=== PATIENT | male | born 1960 | race Caucasian/White ===

== ENCOUNTER 2018-03-19 12:04 | Inpatient (IN) | payer MEDICAID, SELFPAY ==
[2018-03-19] VITALS (14 sets, daily range): BP systolic 121–182; BP diastolic 75–117; PULSE 77–113; RESP 16–24; TEMP 36.6–36.7; O2SAT 94–98; BMI 33.7
--- NOTE | 2018-03-19 12:18 | EKG12_ITS ---
Test Reason : CP Blood Pressure : / mmHG Vent. Rate : 104 BPM Atrial Rate : 104 BPM P-R Int : 174 ms QRS Dur : 104 ms QT Int : 356 ms P-R-T Axes : 064 078 066 degrees QTc Int : 468 ms Sinus tachycardia Low voltage QRS (olimb leads) Confirmed by FLOR ISRAEL, DINORA ([id number]), script editor SUNITA DALY ([id number]) on 03/22/2018 11:09:42 AM Referred By: DANIELE Confirmed By:DINORA RAY MD
--- NOTE | 2018-03-19 12:18 | RAD_ITS ---
STUDY: X-RAY CHEST REASON FOR EXAM: Male, 57 years old. Midanterior chest pain. TECHNIQUE: Single AP portable view of the chest. # of Images: 1 COMPARISON: AP upright and lateral views of the chest August 13, 2009. Report for that study not available for review at the time of this dictation. FINDINGS: The lungs are clear and expanded. There is no demonstrated pleural abnormality. Normal size heart. Normal mediastinum and amanda. Normal visualized pulmonary arteries. Normal visualized aortic arch and descending thoracic aorta. There are stable multilevel degenerative changes of the visualized thoracic spine. 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 There is no demonstrated abnormality of the visualized soft tissue structures of the upper abdomen. RAD/Chest 1 View (Portable) IMPRESSION: No acute cardiopulmonary disease. Electronically Signed: Martin Wang MD at 13:05 EDT , Service support ,
[2018-03-19] MEDS: Aspirin 81 MG TAB.CHEW 324 MG PO (12:33)
[2018-03-19 12:51] LABS: Absolute Lymphocyte Count 0.83 X10^3/ul (0.83-4.51); Absolute Neutrophil Count 2.9 X10^3/uL (2.0-7.7); Basophil# 0.01 X10^3/uL; Basophil% 0.2 % (0-1); Eosinophil# 0.07 X10^3/uL; Eosinophils% 1.6 % (0-5); Hematocrit 44.8 % (40-54); Hemoglobin 15.4 g/dl (13.0-16.5); Lymphocyte # 0.83 X10^3/ul (4.0); Lymphocyte % 19.4 % (19-41); Mean Corp Hgb Conc 34.4 g/gl (32-36); Mean Corpuscular Hgb 31.6 pg (27.0-32.0); Mean Platelet Vol. 10.1 fl (6.2-12.0); Monocyte# 0.47 X10^3/uL; Neutrophil # 2.88 X10^3/uL (2.7-7.7); Neutrophil % 67.6 % (47-70); Platelet Count 200 K/mm3 (150-450); RBC Distribution Width CV 12.7 % (11.6-14.6); RBC Distribution Width SD 42.5 fl (35.1-43.9); Red Blood Count 4.87 M/mm3 (4.6-6.2); White Blood Count 4.3 K/mm3 (4.4-11.0)
[2018-03-19 12:52] LABS: POSITIVE COUNT NO; POSITIVE DIFFERENTIAL NO; POSITIVE MORPHOLOGY NO
--- NOTE | 2018-03-19 12:57 | ED.DCSUM_ITS ---
- ER Visit Summary Date of Service: 03/19/18 Chief Complaint: Midsternal chest dull pressure sensation with radiation to both shoulders and neck for the past couple of days. History of Present Illness: The patient is a 57 M who has history of type 2 diabetes. He denies history of hypertension, hypercholesterolemia or coronary disease. He is a non-smoker. He states he has never had a stress test. Patient presents because of mid sternal chest type dull sensation with radiation to both shoulders and anterior neck with no associated symptoms. Initially pain resolved with rest now states there is a constant dull discomfort. The pain is worse with activity and especially exertion. With resolution of activity discomfort now diminishes significantly and is dependent on the amount of activity that precipitated his chest pressure dull sensation. He denies fever, chills night sweats. He denies cough, orthopnea or PND. He denies any GI or symptoms. He denies myalgias, arthralgias or back pain. He denies any neurologic symptoms. He denies dysuria, polyuria or polydipsia. Physical Examination: Vital signs were noted and blood pressure elevated 182/117 heart rate 107. Head is atraumatic normocephalic. Pupils are equal round reactive. Extraocular muscles are intact. TMs are pearly white with landmarks noted. Nares patent with no drainage. Posterior pharynx without erythema or exudate. Uvula is midline. There is no dysphonia or dysphasia. Trachea is midline. There is no stridor with auscultation of the neck. Heart is regular without murmur, gallop or rub. S1 and S2 are normal. Lungs are clear to auscultation with good movement of air bilaterally. Abdomen soft nontender bowel sounds present normal. Lower extremity exam is remarkable for mild pitting edema bilaterally, which patient was unaware of. Neuro exam is nonfocal. Test Results: EKG was obtained and reveals a sinus rhythm rate of 104. [place] interval, QRS duration, QT interval and axis are normal. Single view portable x-ray reveals normal cardiac silhouette, mediastinum and lung parenchyma. There is no evidence of congestive heart failure or effusion. White count is 4.3 thousand. Glucose is 261. Troponin is indeterminate at 0.29. Emergency Department Course and Treatment: Chest pain order set was initiated to difference between cardiac versus GI versus pulmonary etiology. He did receive aspirin and nitroglycerin. Since patient never had a stress test and presents with exertional chest pressure he was informed he would need admission/overnight stay for further testing. Patient reports his chest discomfort was alleviated with nitroglycerin. Treatment Plan: Dr. Rodriguez has been paged since patient has exertional angina with elevated markers and need for cardiac catheterization versus stress test. We will also discuss anticoagulation. Disposition: PCU Impression: 1. Exertional chest pain 2. Elevated troponin 3. Hyperglycemia and type II diabetic 4. History of hypertension This note was generated with [employer] dictation software. It may contain incorrect words, spelling, and punctuation that were not noted in review of the chart prior to signing ED Disposition - Plan for ED Patient: Chief Complaint: Chest Pain Referrals: Care Physician,No Primary [Primary Care Provider] -
[2018-03-19 13:06] LABS: Anion Gap 10 (5-15); BUN 12 mg/dL (7-18); BUN/Creat Ratio 9.5 RATIO (10-20); Calcium,Total 9.1 mg/dL (8.5-10.1); Chloride 101 mmol/L (98-107); Creatinine, Serum 1.26 mg/dL (0.70-1.30); EST Glomerular Filtration Rate 63 mL/min (>60); Est Glom Filt Rate - Afr Amer 76 mL/min (>60); Estimated Creatinine Clearance 66.79 ml/min; Glucose 261 mg/dL (74-106); Sodium Level 136 mmol/L (136-145)
[2018-03-19] MEDS: Enoxaparin 100 MG/ML Syringe SC ×2 (14:26→22:28)
[2018-03-19 17:00] LABS: Bedside Glucose 96 mg/dL (70-110)
--- NOTE | 2018-03-19 17:20 | ECHOCS_ITS ---
Version 2 Reason For Study: Chest Pain Procedure This was a 2D Doppler, Color Flow transthoracic echocardiogram. The study was technically difficult. Contrast injection was performed. Exam performed portable in patient room. Left Ventricle Normal LV size. Segmental dysfunction with preserved ejection fraction (see wall motion). The estimated ejection fraction is 55 %. Transmitral doppler flow suggestive of impaired relaxation of left ventricle. Infero-Basal: Hypokinetic. Mid-Lateral : Hypokinetic. Mid-Posterior: Hypokinetic. Mid-Inferior: Hypokinetic. Anterior [place] : Hypokinetic. Inferior [place] : Hypokinetic. Right Ventricle Normal RV size. Normal systolic function. Atria Normal left atrium. Normal right atrium. No doppler evidence for ASD. Mitral Valve There is no mitral annular calcification. Normal mitral valve. Mild (1+) mitral valve insufficiency. Tricuspid Valve Normal tricuspid valve. Trivial tricuspid valve insufficiency. Right ventricular systolic pressure estimated to be 25 mmHg. Aortic Valve Trisinus/trileaflet aortic valve. Mild focal aortic valve calcification. Pulmonic Valve The pulmonic valve is not well visualized. Great Vessels Normal sized aortic root. Pericardium/Pleural No pericardial effusion. Medication Definity0.3ml given slow IV push to enhance endocardial definition. MMode/2D Measurements & Calculations LVIDd: 4.9 cm IVSd: 1.4 cm Ao root diam: 3.4 cm LVIDs: 3.8 cm LVPWd: 1.1 cm RVDd: 3.2 cm FS: 22.5 % LAV(MOD-bp): 54.7 ml LVAd ap4: 37.0 cm2 SV(MOD-sp4): 54.4 ml LAV(MOD-bp) Indexed: 24.4 ml/m2 EDV(MOD-sp4): 138.8 ml LAV(MOD-sp2): 61.8 ml EDV(sp4-el): 149.2 ml LAV(MOD-sp4): 42.2 ml LVAs ap4: 26.4 cm2 ESV(MOD-sp4): 84.4 ml ESV(sp4-el): 86.9 ml EF(MOD-sp4): 39.2 % EF(sp4-el): 41.8 % SV(sp4-el): 62.3 ml LA A4 area: 14.6 cm2 RA A4 area: 11.2 cm2 Doppler Measurements & Calculations MV E max josue: 66.9 cm/sec Lat Peak E' Josue: 7.5 cm/sec Med Peak E' Ojsue: 6.0 cm/sec MV A max josue: 88.0 cm/sec E/E' lat: 8.9 E/E' med: 11.1 MV E/A: 0.76 Ao V2 max: 88.9 cm/sec LV V1 max: 79.6 cm/sec PA V2 max: 67.3 cm/sec Ao max P.2 mmHg LV V1 max P.5 mmHg Ao V2 mean: 66.0 cm/sec Ao mean P.9 mmHg Ao V2 VTI: 19.4 cm TR max josue: 233.7 cm/sec TR max P.9 mmHg Interpretation Summary The study was technically difficult. Contrast injection was performed. Segmental dysfunction with preserved ejection fraction (see wall motion). The estimated ejection fraction is 55 %. Mild (1+) mitral valve insufficiency. Trivial tricuspid valve insufficiency. Mild focal aortic valve calcification. Right ventricular systolic pressure estimated to be 25 mmHg. Transmitral doppler flow suggestive of impaired relaxation of left ventricle Ordering Physician: Vlad Rodriguez Performed By: Akiko Ruiz, PHUONG, RVT
--- NOTE | 2018-03-19 17:29 | CON.PCM_ITS ---
Problem List (1) NSTEMI (non-ST elevated myocardial infarction) Status: Acute (2) HTN (hypertension) Status: Chronic Qualifiers: Hypertension type: essential hypertension Qualified Code(s): I10 - Essential (primary) hypertension (3) Diabetes mellitus Status: Chronic Reason for Consult Date of Consultation: 03/19/18 History of Present Illness: The patient is a 57 year old white male with a past medical history of possible hypertension, diabetes mellitus, who presents for evaluation of chest discomfort and subsequent objective findings with cardiac enzymes concerning for an acute coronary syndrome/non-ST segment elevation TN. The patient states for some time now he has been noticing dull chest discomfort which is waxed and waned. He notes this morning upon awakening he had similar type symptoms. He noted this event was more dramatic than the others. He stated he felt pressure in his chest. It radiated somewhat to his shoulders. He does not recall radiation to the neck or jaw. He does not recall any acute nausea, emesis, diaphoresis, or respiratory related issues. He subsequent he presented to the emergency department for further evaluation care. There he was found to have an indeterminant troponin I level. His ECG demonstrated sinus tachycardia with no acute ECG changes. He was treated medically which included aspirin and nitrate therapy. Had improvement in symptoms. He was placed in the PCU for further evaluation care. His subsequent troponin I level became positive. He denies any orthopnea or PND or worsening peripheral pitting edema. He denies any history of hemorrhagic or thrombotic related events. He does not recall undergoing cardiovascular evaluation in the past. He states he feels better at this time. [] Past Medical History Allergies/Adverse Reactions: Allergies shrimp Allergy (Verified 03/19/18 12:07) Rash Home Medications: Ambulatory Orders Medication Instructions Recorded Empagliflozin [Jardiance] 25 mg PO DAILY 03/19/18 Glimepiride [Amaryl] 4 mg PO BID 03/19/18 Metformin HCl 1,000 mg PO BID 03/19/18 Past Medical History (Chronic Problems): Chronic Problems HTN (hypertension) (Chronic) Diabetes mellitus (Chronic) Lives: Spouse/ Significant Other Smoking Status: Never smoker Alcohol: None Drugs: None Review of Systems - Review of Systems General: Denies: Fever, Night Sweats, Fatigue Cardiovascular: Reports: Chest Discomfort, Chest Discomfort at Rest, Chest Discomfort with Exertion. Denies: Shortness of Breath, Orthopnea, PND, Peripheral Edema, Palpitations, Lightheadedness, Dizziness, Near Syncope, Syncope Respiratory: Denies: Cough, Sputum Production, Hemoptysis Gastrointestinal: Denies: Hematemesis, Hematochezia, Melena Genitourinary: Denies: Dysuria, Hematuria Skin: Denies: Rash Subjectve: This is a 57-year-old white male who appears to be resting comfortably at the moment in no acute distress. Objective: Vital Signs Temp Pulse Resp BP Pulse Ox 98.1 F 85 18 123/76 H 96 03/19/18 16:04 03/19/18 16:04 03/19/18 16:04 03/19/18 16:04 03/19/18 16:04 Oxygen Delivery Method Room Air Weight: 235 lb 7.259 oz Body Mass Index (BMI) 33.7 General: Awake, Alert, Oriented x 3, Cooperative, No Acute Distress HEENT: Atraumatic, Normocephalic, PERRL, EOMI, Sclera Non Icteric Oral: Moist Mucosa Neck: Supple, Good ROM, No JVD Lungs: Clear to auscultation Cardiovascular: Regular Rhythm, Normal S1, Normal S2 Vascular: No Carotid Bruits Abdomen: Bowel Sounds Present, Soft, Non Tender Extremities: No Cyanosis, No Clubbing, No edema Neurological: No Focal Motor or Sensory Deficit Psych/Mental Status: Appropriate, Normal Affect 03/19/18 12:12: WBC 4.3 L, RBC 4.87, Hgb 15.4, Hct 44.8, MCV 92.0, MCH 31.6, MCHC 34.4, RDW 12.7, RDW Differential 42.5, Plt Count 200, MPV 10.1, Immature Gran % (Auto) 0.200, Neut % (Auto) 67.6, Lymph % (Auto) 19.4, [place] % (Auto) 11.0 H, Eos % (Auto) 1.6, Baso % (Auto) 0.2, Absolute Neuts (auto) 2.9, Total Counted Not Reportable 03/19/18 12:12: Sodium 136, Potassium 4.0, Chloride 101, Carbon Dioxide 25.0, Anion Gap 10, BUN 12, Creatinine 1.26, Est GFR (MDRD) Af Amer 76, Est GFR (MDRD) Non-Af 63, BUN/Creatinine Ratio 9.5 L, Glucose 261 H, Calcium 9.1, Troponin I 0.290 H 03/19/18 15:54: Troponin I 0.841 H* Rhythm: Sinus rhythm EKG: As noted above CXR: Preliminary evaluation: No acute cardiopulmonary disease process appreciated: Please see official report Assessment/Plan 1. Acute coronary syndrome/non-ST segment elevation TN The patient presents with symptoms and subsequent objective findings based on cardiac enzymes compatible with an acute coronary syndrome/non-ST segment elevation TN. The patient appears to be symptomatically improved status post initiation of medical therapy with aspirin and nitrates. He will continue to be monitored. His ECG will be followed. An echocardiogram will be requested to evaluate his left ventricular wall motion and systolic function. He will be recommended for further evaluation with diagnostic cardiac catheterization which may lead to revascularization therapy. In the interim he will continue medical management. This will include his antiplatelet therapy aspirin and agent such as clopidogrel/Plavix, nitrates, bet a-blockers, and lipid-lowering agents. 2. Hypertension The patient's blood pressure was elevated upon arrival to hospital. It is unclear whether this represents a history of hypertension or being secondary to his ongoing discomfort. His blood pressures will need to be followed. He can be treated as needed. 3. Diabetes mellitus The will continue care per internal medicine. Comment: The patient's case was discussed and reviewed with the patient and Dr. Whitt. This note was generated with [employer] software. It may contain incorrect words, spelling, and punctuation that were not noted in checking the note before signing.
[2018-03-19] MEDS: Clopidogrel Bisulfate 300 MG Tablet PO (17:59)
--- NOTE | 2018-03-19 19:43 | HP.PCM_ITS ---
Problem List (1) NSTEMI (non-ST elevated myocardial infarction) Status: Acute (2) Diabetes mellitus Status: Chronic (3) HTN (hypertension) Status: Chronic Qualifiers: Hypertension type: essential hypertension Qualified Code(s): I10 - Essential (primary) hypertension History of Present Illness Date of Admission: 03/19/18 Chief Complaint: Chest pain The patient is a 57 year old M with a PMH as above presenting with chest pain that would not resolve. He has been having intermittent chest pain with exertion only for the last few weeks that was very stable until today when it would not resolve when it usually would with rest. Maybe some radiation to his shoulder but otherwise no significant radiation, no diaphoresis. In the ER he was found to have a normal EKG but an elevated troponin to 0.29. Cardiology was consulted for the NSTEMI and recommended a cardiac cath, on wednesday, possibly sooner. Past Medical History Past Medical History (Chronic Problems): Chronic Problems HTN (hypertension) (Chronic) Diabetes mellitus (Chronic) Allergies shrimp Allergy (Verified 03/19/18 12:07) Rash Home Medications: Ambulatory Orders Medication Instructions Recorded Empagliflozin [Jardiance] 25 mg PO DAILY 03/19/18 Glimepiride [Amaryl] 4 mg PO BID 03/19/18 Metformin HCl 1,000 mg PO BID 03/19/18 Surgical History: no surgical history Lives: Spouse/ Significant Other Smoking Status: Never smoker Alcohol: None Drugs: None - *Family History Maternal History Items: Heart Disease, Hypertension Review of Systems Constitutional: Denies: Chills, Fever, Weight Change HEENT: Denies: Head Aches, Sinus Congestion, Sinus Drainage Cardiovascular: Reports: Chest Pain, Chest Pressure. Denies: Edema, Heaviness, Light Headedness, Orthopnea, Palpitations, Syncope Respiratory: Denies: Cough, Shortness of breath at rest, Sputum production Gastrointestinal: Denies: Abdominal Pain, Nausea, Vomiting Genitourinary: Denies: Dysuria Musculoskeletal: Denies: Joint Pain, Joint Tenderness Skin: Denies: Rash, Wounds Neurological: Denies: Numbness, Tingling, Focal weakness Psychiatric: Denies: Anxiety, Depression Hematologic/ Lymphatic: Denies: Easy Bruising, Easy Bleeding VTE Information - Inpt Only VTE Present on Admission: No Patient Problems: Active and Suspected Problems NSTEMI (non-ST elevated myocardial infarction) (Acute) - Physical Exam General: Alert, Oriented x3, Cooperative, No apparent distress HEENT: Atraumatic, PERRLA, EOMI, Normocephalic Neck: Supple, No JVD Lungs: Clear to auscultation, Normal air movement, No rhonchi, No wheeze, No rales Cardiovascular: Regular rate, Regular Rhythm, Normal S1, Normal S2, No murmurs Abdomen: Soft, Non Tender, Non-Distended, No Hepato-splenomegaly Extremities: No edema, Capillary Refill Less than 3 Seconds Skin: No rashes, No breakdown Musculoskeletal: No Tenderness to Palpation of Joints or Extremities Neurological: Neuro grossly intact, Sensory exam intact to light touch and pain Psych/Mental Status: Normal Affect, Appropriate Vital Signs Temp Pulse Resp BP Pulse Ox 98.1 F 94 18 123/76 H 96 03/19/18 16:04 03/19/18 18:00 03/19/18 16:04 03/19/18 16:04 03/19/18 16:04 Oxygen Delivery Method Room Air Weight: 235 lb 7.259 oz Body Mass Index (BMI) 33.7 Intake and Output for Last 24 Hours 03/17/18 03/18/18 03/19/18 23:59 23:59 23:59 Intake Total 300 / 300 Balance 300 / 300 Laboratory Tests Past 24 Hrs 03/19/18 03/19/18 03/19/18 12:12 12:12 15:54 WBC 4.3 L RBC 4.87 Hgb 15.4 Hct 44.8 MCV 92.0 MCH 31.6 MCHC 34.4 RDW 12.7 RDW Differential 42.5 Plt Count 200 MPV 10.1 Immature Gran % (Auto) 0.200 Neut % (Auto) 67.6 Lymph % (Auto) 19.4 [place] % (Auto) 11.0 H Eos % (Auto) 1.6 Baso % (Auto) 0.2 Absolute Neuts (auto) 2.9 Absolute Lymphs (auto) 0.83 Total Counted Not Reportable Sodium 136 Potassium 4.0 Chloride 101 Carbon Dioxide 25.0 Anion Gap 10 BUN 12 Creatinine 1.26 Estim Creat Clear Calc 66.79 Est GFR (MDRD) Af Amer 76 Est GFR (MDRD) Non-Af 63 BUN/Creatinine Ratio 9.5 L Glucose 261 H Calcium 9.1 Troponin I 0.290 H 0.841 H* 03/19/18 18:08 WBC RBC Hgb Hct MCV MCH MCHC RDW RDW Differential Plt Count MPV Immature Gran % (Auto) Neut % (Auto) Lymph % (Auto) [place] % (Auto) Eos % (Auto) Baso % (Auto) Absolute Neuts (auto) Absolute Lymphs (auto) Total Counted Sodium Potassium Chloride Carbon Dioxide Anion Gap BUN Creatinine Estim Creat Clear Calc Est GFR (MDRD) Af Amer Est GFR (MDRD) Non-Af BUN/Creatinine Ratio Glucose Calcium Troponin I 1.180 H* POC Glucose 03/19/18 16:58 POC Glucose 96 Assessment/Plan All Active Problems NSTEMI (non-ST elevated myocardial infarction) (Acute) 1. NSTEMI/HTN - Serial cardiac enzymes - C/s to cardiology - Start statin, Asa, loading dose of plavix, therapeutic lovenox - Plan for cath on Wednesday - Start metoprolol and nitro paste - Echo 2. DM - Will hold all oral meds - Start SSI and monitor DVT: therapeutic lovenox Diet: Cardiac Code Visit Inpatient E&M: 90348 Init Hosp L3
[2018-03-19] MEDS: Metoprolol Tartrate 25 MG Tablet PO (21:12)
[2018-03-19] MEDS: Atorvastatin Calcium 40 MG Tablet PO (21:12)
[2018-03-19] MEDS: Acetaminophen 325 MG Tablet 650 MG PO (22:23)
[2018-03-19] MEDS: Nitroglycerin Oint 1 INCH PACKET TRANSDERM. (22:28)
[2018-03-19 22:56] LABS: Bedside Glucose 132 mg/dL (70-110)
[2018-03-20] VITALS (15 sets, daily range): BP systolic 88–128; BP diastolic 40–76; PULSE 70–97; RESP 16–20; TEMP 36.6–36.9; O2SAT 95–97
[2018-03-20] MEDS: Nitroglycerin Oint 1 INCH PACKET TRANSDERM. ×3 (05:32→23:19)
--- NOTE | 2018-03-20 05:55 | EKG12_ITS ---
Test Reason : A EKG Blood Pressure : / mmHG Vent. Rate : 074 BPM Atrial Rate : 074 BPM P-R Int : 176 ms QRS Dur : 092 ms QT Int : 414 ms P-R-T Axes : 065 086 099 degrees QTc Int : 459 ms Normal sinus rhythm Cannot rule out Inferior infarct , age undetermined Abnormal ECG Confirmed by FLOR ISRAEL, DINORA ([id number]), supervising editor trailer SABRINA DEVLIN ([id number]) on 03/23/2018 1:48:14 PM Referred By: EARL Confirmed By:DINORA RAY MD
[2018-03-20 06:52] LABS: Absolute Lymphocyte Count 1.16 X10^3/ul (0.83-4.51); Absolute Neutrophil Count 3.3 X10^3/uL (2.0-7.7); Basophil# 0.01 X10^3/uL; Basophil% 0.2 % (0-1); Eosinophil# 0.09 X10^3/uL; Eosinophils% 1.9 % (0-5); Hemoglobin 13.9 g/dl (13.0-16.5); Lymphocyte # 1.16 X10^3/ul (4.0); Lymphocyte % 24.1 % (19-41); Mean Corp Hgb Conc 33.9 g/gl (32-36); Mean Corpuscular Hgb 31.4 pg (27.0-32.0); Mean Corpuscular Volume 92.8 fL (80-94); Mean Platelet Vol. 9.6 fl (6.2-12.0); Monocyte# 0.26 X10^3/uL; Monocyte% 5.4 % (0-10); Neutrophil # 3.29 X10^3/uL (2.7-7.7); Neutrophil % 68.4 % (47-70); Platelet Count 182 K/mm3 (150-450); RBC Distribution Width CV 12.7 % (11.6-14.6); RBC Distribution Width SD 42.9 fl (35.1-43.9); Red Blood Count 4.42 M/mm3 (4.6-6.2); White Blood Count 4.8 K/mm3 (4.4-11.0)
[2018-03-20 06:59] LABS: POSITIVE COUNT NO; POSITIVE DIFFERENTIAL NO; POSITIVE MORPHOLOGY NO
[2018-03-20 07:00] LABS: Bedside Glucose 185 mg/dL (70-110)
[2018-03-20 07:15] LABS: Anion Gap 10 (5-15); BUN 17 mg/dL (7-18); BUN/Creat Ratio 15.9 RATIO (10-20); Calcium,Total 8.7 mg/dL (8.5-10.1); Chloride 105 mmol/L (98-107); Creatinine, Serum 1.07 mg/dL (0.70-1.30); EST Glomerular Filtration Rate 76 mL/min (>60); Est Glom Filt Rate - Afr Amer 92 mL/min (>60); Estimated Creatinine Clearance 78.65 ml/min; Glucose 158 mg/dL (74-106); Potassium 3.9 mmol/L (3.5-5.1); Sodium Level 141 mmol/L (136-145)
[2018-03-20 07:19] LABS: International Normalized Ratio 1.1; Prothrombin Time (Protime)PT. 14.4 SECONDS (11.7-14.9)
--- NOTE | 2018-03-20 08:07 | PN_ITS ---
Patient Problems: Active and Suspected Problems NSTEMI (non-ST elevated myocardial infarction) (Acute) Subjective: No chest pain, breathing ok no major issues overnight, has a slight headache this am Objective: General: Alert, Oriented x3, Cooperative, No apparent distress HEENT: Atraumatic, EOMI, Normocephalic Neck: Supple, No JVD Lungs: Clear to auscultation, Normal air movement, No rhonchi, No wheeze, No rales Cardiovascular: Regular rate, Regular Rhythm, Normal S1, Normal S2, No murmurs Abdomen: Soft, Non Tender, Non-Distended, No Hepato-splenomegaly Extremities: No edema, Capillary Refill Less than 3 Seconds Skin: No rashes, No breakdown Vitals/I&O's: Vital Signs Temp Pulse Resp BP Pulse Ox 98.3 F 77 18 117/71 96 03/20/18 05:08 03/20/18 07:00 03/20/18 05:08 03/20/18 05:32 03/20/18 05:08 Oxygen Delivery Method CPAP Weight: 235 lb 7.259 oz Body Mass Index (BMI) 33.7 Intake and Output for Last 24 Hours 03/18/18 03/19/18 03/20/18 23:59 23:59 23:59 Intake Total 300 / 300 400 / 400 Balance 300 / 300 400 / 400 Laboratory Results 03/19/18 12:12: WBC 4.3 L, RBC 4.87, Hgb 15.4, Hct 44.8, MCV 92.0, MCH 31.6, MCHC 34.4, RDW 12.7, RDW Differential 42.5, Plt Count 200, MPV 10.1, Immature Gran % (Auto) 0.200, Neut % (Auto) 67.6, Lymph % (Auto) 19.4, [place] % (Auto) 11.0 H, Eos % (Auto) 1.6, Baso % (Auto) 0.2, Absolute Neuts (auto) 2.9, Absolute Lymphs (auto) 0.83, Total Counted Not Reportable 03/19/18 12:12: Sodium 136, Potassium 4.0, Chloride 101, Carbon Dioxide 25.0, Anion Gap 10, BUN 12, Creatinine 1.26, Estim Creat Clear Calc 66.79, Est GFR (MDRD) Af Amer 76, Est GFR (MDRD) Non-Af 63, BUN/Creatinine Ratio 9.5 L, Glucose 261 H, Calcium 9.1, Troponin I 0.290 H 03/19/18 15:54: Troponin I 0.841 H* 03/19/18 16:58: POC Glucose 96 03/19/18 18:08: Troponin I 1.180 H* 03/19/18 22:25: POC Glucose 132 H 03/20/18 06:25: WBC 4.8, RBC 4.42 L, Hgb 13.9, Hct 41.0, MCV 92.8, MCH 31.4, MCHC 33.9, RDW 12.7, RDW Differential 42.9, Plt Count 182, MPV 9.6, Immature Gran % (Auto) 0.000, Neut % (Auto) 68.4, Lymph % (Auto) 24.1, [place] % (Auto) 5.4, Eos % (Auto) 1.9, Baso % (Auto) 0.2, Absolute Neuts (auto) 3.3, Absolute Lymphs (auto) 1.16, Total Counted Not Reportable 03/20/18 06:25: PT 14.4, INR 1.1 03/20/18 06:25: Sodium 141, Potassium 3.9, Chloride 105, Carbon Dioxide 26.0, Anion Gap 10, BUN 17, Creatinine 1.07, Estim Creat Clear Calc 78.65, Est GFR (MDRD) Af Amer 92, Est GFR (MDRD) Non-Af 76, BUN/Creatinine Ratio 15.9, Glucose 158 H, Calcium 8.7 03/20/18 06:50: POC Glucose 185 H Current Medications Acetaminophen (Tylenol) 650 mg PO Q6H PRN PRN PRN Reason: PAIN Last Admin: 03/19/18 22:23 Dose: 650 mg Atorvastatin Calcium (Lipitor) 40 mg PO QHS CALEB Last Admin: 03/19/18 21:12 Dose: 40 mg Dextrose (D50w Syringe) 0 gm IV X1 PRN; Protocol PRN Reason: Hypoglycemia Enoxaparin Sodium (Lovenox) 100 mg SC Q12 CALEB Last Admin: 03/19/18 22:28 Dose: 100 mg Glucagon () 1 mg IM .X1 PRN PRN Reason: Hypoglycemia Influenza Virus Vaccine Quadrival (Fluarix/Fluzone) 0.5 ml IM .ONCE ONE Stop: 03/20/18 10:01 Insulin Human Lispro (Humalog Kwikpen (Bkc)) 0 unit SQ ACHS [facility]; Protocol Last Admin: 03/19/18 22:30 Dose: Not Given Magnesium Hydroxide (Milk Of Magnesia) 30 ml PO DAILY PRN PRN Reason: Constipation Metoprolol Tartrate (Lopressor (Beta Sp)) 25 mg PO BID [facility] Last Admin: 03/19/18 21:12 Dose: 25 mg Nitroglycerin (Nitrobid) 1 inch TRANSDERM. Q8 [facility] Last Admin: 03/20/18 05:32 Dose: 1 inch Sodium Chloride () 5 - 30 ml IV UD PRN PRN Reason: SALINE FLUSH Medical Necessity - Tobacco Use Smoking Status: Never smoker Assessment/Plan All Active Problems NSTEMI (non-ST elevated myocardial infarction) (Acute) 1. NSTEMI/HTN - Serial cardiac enzymes - C/s to cardiology - Start statin, Asa, loading dose of plavix, therapeutic lovenox - Plan for cath on Wednesday - c/w metoprolol and nitro paste - Echo 2. DM - Will hold all oral meds - Start SSI and monitor DVT: therapeutic lovenox Diet: Cardiac Code Visit Inpatient E&M: 93347 Subs Hosp L2
[2018-03-20 10:57] LABS: AST(SGOT) 28 U/L (15-37); Alanine Aminotransfer ALT/SGPT 33 U/L (16-61); Albumin, Serum 3.9 g/dL (3.2-5.0); Alkaline Phosphatase 122 U/L (45-117); Bilirubin, Direct 0.17 mg/dL (0.00-0.30); Cholesterol 162 mg/dL (200); Globulin 3.4 g/dL (2.2-4.2); High Density Lipoprotein 30 mg/dL; Protein, Total 7.3 g/dL (6.4-8.2); Triglycerides 471 mg/dL
[2018-03-20] MEDS: Enoxaparin 100 MG/ML Syringe SC ×2 (11:10→23:22)
[2018-03-20] MEDS: Metoprolol Tartrate 25 MG Tablet PO ×2 (11:10→23:09)
[2018-03-20] MEDS: Clopidogrel Bisulfate 75 MG Tablet PO (11:11)
[2018-03-20] MEDS: Aspirin E.C. 81 MG Tablet PO (11:11)
[2018-03-20] MEDS: Insulin Lispro 100 UNIT/ML INSULN.PEN SQ ×2 (11:56→16:54)
--- NOTE | 2018-03-20 12:15 | PN.CARD_ITS ---
Subjectve: The patient denies ongoing chest pain at this time. He has denied any other acute symptoms. Objective: Vital Signs Temp Pulse Resp BP Pulse Ox 97.9 F 83 16 121/59 H 95 03/20/18 10:50 03/20/18 11:10 03/20/18 10:50 03/20/18 10:50 03/20/18 10:50 Oxygen Delivery Method Room Air Weight: 235 lb 7.259 oz Body Mass Index (BMI) 33.7 Intake and Output for Last 24 Hours 03/18/18 03/19/18 03/20/18 23:59 23:59 23:59 Intake Total 300 / 300 800 / 800 Balance 300 / 300 800 / 800 General: Awake, Alert, Oriented x 3, Cooperative, No Acute Distress HEENT: Atraumatic, Normocephalic, PERRL, EOMI, Sclera Non Icteric Oral: Moist Mucosa Neck: Supple, Good ROM, No JVD Lungs: Clear to auscultation Cardiovascular: Regular Rhythm, Normal S1, Normal S2 Abdomen: Bowel Sounds Present, Soft, Non Tender, Obese Extremities: No Cyanosis, No Clubbing, No edema Neurological: No Focal Motor or Sensory Deficit Psych/Mental Status: Appropriate, Normal Affect 03/19/18 12:12: WBC 4.3 L, RBC 4.87, Hgb 15.4, Hct 44.8, MCV 92.0, MCH 31.6, MCHC 34.4, RDW 12.7, RDW Differential 42.5, Plt Count 200, MPV 10.1, Immature Gran % (Auto) 0.200, Neut % (Auto) 67.6, Lymph % (Auto) 19.4, [place] % (Auto) 11.0 H, Eos % (Auto) 1.6, Baso % (Auto) 0.2, Absolute Neuts (auto) 2.9, Total Counted Not Reportable 03/19/18 12:12: Sodium 136, Potassium 4.0, Chloride 101, Carbon Dioxide 25.0, Anion Gap 10, BUN 12, Creatinine 1.26, Est GFR (MDRD) Af Amer 76, Est GFR (MDRD) Non-Af 63, BUN/Creatinine Ratio 9.5 L, Glucose 261 H, Calcium 9.1, Troponin I 0.290 H 03/19/18 15:54: Troponin I 0.841 H* 03/19/18 18:08: Troponin I 1.180 H* 03/20/18 06:25: WBC 4.8, RBC 4.42 L, Hgb 13.9, Hct 41.0, MCV 92.8, MCH 31.4, MCHC 33.9, RDW 12.7, RDW Differential 42.9, Plt Count 182, MPV 9.6, Immature Gran % (Auto) 0.000, Neut % (Auto) 68.4, Lymph % (Auto) 24.1, [place] % (Auto) 5.4, Eos % (Auto) 1.9, Baso % (Auto) 0.2, Absolute Neuts (auto) 3.3, Total Counted Not Reportable 03/20/18 06:25: PT 14.4, INR 1.1 03/20/18 06:25: Sodium 141, Potassium 3.9, Chloride 105, Carbon Dioxide 26.0, Anion Gap 10, BUN 17, Creatinine 1.07, Est GFR (MDRD) Af Amer 92, Est GFR (MDRD) Non-Af 76, BUN/Creatinine Ratio 15.9, Glucose 158 H, Calcium 8.7 03/20/18 10:20: Total Bilirubin 0.60, Direct Bilirubin 0.17, Troponin I 2.140 H* , Triglycerides 471 H, Cholesterol 162, LDL Cholesterol TNP, VLDL Cholesterol TN P, HDL Cholesterol 30 L Rhythm: sinus rhythm Medical Necessity - Tobacco Use Smoking Status: Never smoker Assessment/Plan 1. Acute coronary syndrome/non-ST segment elevation MN The patient presents with symptoms and subsequent objective findings based on cardiac enzymes compatible with an acute coronary syndrome/non-ST segment elevation MN. The patient appears to be symptomatically improved status post initiation of medical therapy with aspirin and nitrates. He will continue to be monitored. His cardiac enzymes are being followed. His ECG is being followed. An echocardiogram will be requested to evaluate his left ventricular wall motion and systolic function. He will be recommended for further evaluation with diagnostic cardiac catheterization which may lead to revascularization therapy. In the interim he will continue medical management. This will include his antiplatelet therapy aspirin and agent such as clopidogrel/Plavix, nitrates, beta-blockers, and lipid-lowering agents. 2. Hypertension The patient's blood pressure was elevated upon arrival to hospital. It is unclear whether this represents a history of hypertension or being secondary to his ongoing discomfort. His blood pressures will need to be followed. He can be treated as needed. 3. Diabetes mellitus The will continue care per internal medicine. Comment: The patient's case was discussed and reviewed with the patient and Dr. Whitt. This note was generated with [employer] dictation software. It may contain incorrect words, spelling, and punctuation that were not noted in checking the note before signing.
[2018-03-20 13:01] LABS: Bedside Glucose 233 mg/dL (70-110)
[2018-03-20] MEDS: Acetaminophen 325 MG Tablet 650 MG PO (14:41)
[2018-03-20 17:01] LABS: Bedside Glucose 193 mg/dL (70-110)
[2018-03-20] MEDS: Famotidine 20 MG Tablet PO (23:09)
[2018-03-20] MEDS: predniSONE 20 MG Tablet 60 MG PO (23:09)
[2018-03-20] MEDS: DiphenhydrAMINE 25 MG Capsule 50 MG PO (23:09)
[2018-03-20] MEDS: Atorvastatin Calcium 40 MG Tablet PO (23:10)
[2018-03-20 23:26] LABS: Bedside Glucose 149 mg/dL (70-110)
[2018-03-21] VITALS (17 sets, daily range): BP systolic 110–140; BP diastolic 72–95; PULSE 79–110; RESP 15–20; TEMP 36.6–37.2; O2SAT 95–99
--- NOTE | 2018-03-21 05:55 | EKG12_ITS ---
Test Reason : AMEKG Blood Pressure : / mmHG Vent. Rate : 080 BPM Atrial Rate : 080 BPM P-R Int : 178 ms QRS Dur : 094 ms QT Int : 388 ms P-R-T Axes : 055 073 095 degrees QTc Int : 447 ms Normal sinus rhythm Low voltage QRS Nonspecific T wave abnormality Abnormal ECG Confirmed by FLOR ISRAEL, DINORA ([id number]), department editor SABRINA DEVLIN ([id number]) on 03/23/2018 1:44:53 PM Referred By: EARL Confirmed By:DINORA RAY MD
[2018-03-21 06:11] LABS: Anion Gap 11 (5-15); BUN 18 mg/dL (7-18); BUN/Creat Ratio 17.1 RATIO (10-20); Calcium,Total 8.9 mg/dL (8.5-10.1); Chloride 106 mmol/L (98-107); Creatinine, Serum 1.05 mg/dL (0.70-1.30); EST Glomerular Filtration Rate 77 mL/min (>60); Est Glom Filt Rate - Afr Amer 94 mL/min (>60); Estimated Creatinine Clearance 80.15 ml/min; Glucose 254 mg/dL (74-106); Potassium 4.5 mmol/L (3.5-5.1); Sodium Level 141 mmol/L (136-145)
[2018-03-21 06:12] LABS: International Normalized Ratio 1.1; Prothrombin Time (Protime)PT. 14.3 SECONDS (11.7-14.9)
[2018-03-21 06:13] LABS: Partial Thromboplast Time 30.9 Seconds (24.1-36.2)
[2018-03-21 06:21] LABS: Absolute Lymphocyte Count 0.56 X10^3/ul (0.83-4.51); Absolute Neutrophil Count 5.2 X10^3/uL (2.0-7.7); Eosinophil# 0.01 X10^3/uL; Eosinophils% 0.2 % (0-5); Hematocrit 40.8 % (40-54); Hemoglobin 14.3 g/dl (13.0-16.5); Lymphocyte # 0.56 X10^3/ul (4.0); Lymphocyte % 9.5 % (19-41); Mean Corpuscular Hgb 32.2 pg (27.0-32.0); Mean Corpuscular Volume 91.9 fL (80-94); Monocyte# 0.13 X10^3/uL; Monocyte% 2.2 % (0-10); Neutrophil % 88.1 % (47-70); Platelet Count 202 K/mm3 (150-450); RBC Distribution Width CV 12.3 % (11.6-14.6); RBC Distribution Width SD 40.9 fl (35.1-43.9); Red Blood Count 4.44 M/mm3 (4.6-6.2); White Blood Count 5.9 K/mm3 (4.4-11.0)
[2018-03-21 06:22] LABS: Differential Indicated SCAN CRITERIA MET; POSITIVE COUNT NO; POSITIVE DIFFERENTIAL YES; POSITIVE MORPHOLOGY NO
[2018-03-21 07:06] LABS: Bedside Glucose 232 mg/dL (70-110)
[2018-03-21] MEDS: Aspirin E.C. 81 MG Tablet PO (07:09)
[2018-03-21] MEDS: Clopidogrel Bisulfate 75 MG Tablet PO (07:09)
[2018-03-21] MEDS: 0.9% Normal Saline 1,000 ML 15 ML IV (07:09)
[2018-03-21] MEDS: predniSONE 20 MG Tablet 60 MG PO (07:09)
[2018-03-21] MEDS: Nitroglycerin Oint 1 INCH PACKET TRANSDERM. (07:10)
[2018-03-21] MEDS: Famotidine 20 MG Tablet PO (07:10)
[2018-03-21] MEDS: DiphenhydrAMINE 25 MG Capsule 50 MG PO (07:10)
[2018-03-21] MEDS: Metoprolol Tartrate 25 MG Tablet PO (07:10)
[2018-03-21 07:13] LABS: Differential Comment SCANNED
--- NOTE | 2018-03-21 07:55 | CASEMGMT ---
According to the [facility] website, the following are in-network tertiary facilities: [facility], [place], [facility], [facility], [place], [facility], and . Ike KUMARI CM
--- NOTE | 2018-03-21 08:56 | CL.I_ITS ---
Patient Name: MOIRA BUCKNER Study Date: 03/21/2018 Performing: Benjamin Augustine MD Ht: 70.07 inches 178 cm : 1960 Wt: 235.89 lbs 107 kg Age: 57 Gender: male BSA: 2.24 PROCEDURE(S) PERFORMED [id number], CORONARY OR GRAFT, INITIAL VESSEL CLINICAL PROFILE AND CO-MORBIDITIES Patient presents with NSTEMI for urgent cardiac cath Indications: New Onset Angina <= 2 months, Worsening Angina, Suspected CAD, LV Dysfunction Heart Failure: NYHA Class: 1, Newly Diagnosed: Yes, Heart Failure Type: Systolic Stress/Imaging Stress/Image Study Performed: No Angina Classification Anginal Classification w/in 2 Weeks: CCS III CAD Presentations: Non-STEMI. Symptom onset Date/Time: 03/19/2018 Time Not Available Comorbidities/Risk Factors: Hypertension Dyslipidemia Family History of Premature CAD CONCLUSIONS FFR of mid LAD of 0.82, probably signficant considered mid LAD lesion and caliber of vessel. RECOMMENDATIONS Highly recommend quitting all tobacco products Follow up with primary final operations technician Risk factor modification ASA Indefinitley Plavix for at least 12 months Routine post interventional care Refer for Outpatient Cardiac Rehab Manual sheath removal per protocol Follow up with Dr. Rodriguez CABG to LAD, DIAG#1, OM and RCA. Successful Mynx closure to RFA. NTG gtt; d/c plavix; hold Lovenox until 03/22/18. D/w Dr Rodriguez. DESCRIPTION OF PROCEDURE The patient arrived to the procedure lab. The risks and benefits of the procedure as well as a full d escription of our services here and current unavailability of surgical backup were fully explained to the patient and/or their significant other prior to the catheterization. The Timeout was completed, verifying the correct patient and procedure. The patient's procedural site was prepped and draped in the usual fashion. Local anesthetic was given subcutaneously to right groin region with Lidocaine 2% Using a modified Seldinger technique,arterial access was obtained via the right femoral artery, a 4Fr sheath was inserted Left Coronary Artery selective angiography was performed in multiple views using a 4 Fr. JL5 catheter. Right Coronary Artery selective angiography was then performed in multiple vie ws using a 4 Fr. 3DRC catheter. Left Ventriculography was performed in COLIN projection using a 4 Fr. P igtail catheter. LV to AO pullback pressures were then recorded.The images were reviewed and options discussed. A decision was then made to proceed with an Intervention, IVUS or other adjunct procedure. Arterial sheath was exchanged for a 6 Fr Sheath. EBU 3.75 Guide catheter was inserted and engaged int o the LCA. The FFR/iFR wire was inserted. Adenosine was then given per protocol. Pressures and FFR/iF R were then recorded. FFR Ratio Baseline: 0.93 FFR Ratio post Adenosine: 0.82 The FFR/iFR wire was th en removed. Contrast was injected through the sheath and the Right Iliac and Femoral artery were asse ssed for possible closure device. The arterial sheath was pulled and a Mynx closure device was deplo chao for hemostasis INTERVENTION INFORMATION LESION SITE: LAD (Mid) Lesion Complexity: Non-High/Non-C, lesion at bifurcation: Yes Pre Stenosis: 75 % Pre intervention RICHARD flow: 3 PROCEDURE: FFR Post Stenosis: 75 % Post intervention RICHARD flow: 3 COMPLICATIONS No Complications PROCEDURE MEDICATIONS Versed 1 mg IV Fentanyl 25 mcg IV Fentanyl 25 mcg IV Oxygen: 2 L/min via nasal cannula Adenosine drip for FFR 30 ml IV @ 03/21/2018 08:33:49 Heparin 6000 unit(s) IV 03/21/2018 08:27:33 Nitro glycerin 25mg / 250ml D5W @ 5 mcg/min IV started 03/21/2018 08:42:37 Nitro Paste 1 in removed 03/21/2018 08:42:58 SUMMARY OF HEMODYNAMIC DATA Time AIR REST ECG 07:25:56 AO 136/92 (111) SA 07:44:27 LV 149/27, 48 07:53:46 LV 150/10, 33 07:53:53 LV 148/2, 33 07:55:21 LVp 150/3, 32 07:55:27 AOp 147/88 (116) 07:55:32 Signed By Benjamin Augustine MD On 03/21/2018 08:55:05 Benjamin Augustine MD
[2018-03-21] MEDS: Losartan Potassium 25 MG Tablet PO (10:33)
[2018-03-21 10:36] LABS: ACT Activated Clotting Time 213 sec (74-137)
[2018-03-21 11:16] LABS: Bedside Glucose 190 mg/dL (70-110)
--- NOTE | 2018-03-21 11:53 | PCM.DC.SUM ---
Discharge Date and Diagnosis - Problem List Patient Problems: Active and Suspected Problems NSTEMI (non-ST elevated myocardial infarction) (Acute) Date of Admission: 03/19/18 Date of Discharge: 03/21/18 - Primary Discharge Diagnosis Active and Suspected Problems NSTEMI (non-ST elevated myocardial infarction) (Acute) - Secondary Discharge Diagnosis Chronic Problems HTN (hypertension) (Chronic) Diabetes mellitus (Chronic) Hospital Course and Treatment Imaging Results: None Consults: Cardiology Operations: None Procedures: Cardiac catheterization - Found to have multivessel CAD Summary of Care Provided: HPI: The patient is a 57 year old M with a PMH as above presenting with chest pain that would not resolve. He has been having intermittent chest pain with exertion only for the last few weeks that was very stable until today when it would not resolve when it usually would with rest. Maybe some radiation to his shoulder but otherwise no significant radiation, no diaphoresis. In the ER he was found to have a normal EKG but an elevated troponin to 0.29. Cardiology was consulted for the NSTEMI and recommended a cardiac cath, on wednesday, possibly sooner. Vital Signs - 24 hr Temp Pulse Resp BP BP Pulse Ox 03/21/18 10:45 80 20 H 135/92 H 99 03/21/18 10:43 86 03/21/18 10:15 81 15 135/87 H 99 03/21/18 09:45 86 18 137/92 H 99 03/21/18 09:30 87 17 137/89 H 97 03/21/18 09:15 83 16 138/93 H 97 03/21/18 09:00 85 16 137/92 H 95 03/21/18 07:10 94 133/84 H 03/21/18 07:06 98.1 F 94 18 133/84 H 95 03/21/18 03:30 98.3 F 85 16 110/72 95 03/21/18 03:07 79 03/20/18 23:37 77 03/20/18 23:09 82 125/65 H 03/20/18 23:00 98.4 F 82 18 125/65 H 96 03/20/18 19:46 84 03/20/18 16:45 98.2 F 82 16 128/71 H 96 03/20/18 15:30 97 03/20/18 14:33 98.4 F 88 16 122/76 H 97 General: Alert, Oriented x3, Cooperative, No apparent distress HEENT: Atraumatic, EOMI, Normocephalic Neck: Supple, No JVD Lungs: Clear to auscultation, Normal air movement, No rhonchi, No wheeze, No rales Cardiovascular: Regular rate, Regular Rhythm, Normal S1, Normal S2, No murmurs Abdomen: Soft, Non Tender, Non-Distended, No Hepato-splenomegaly Extremities: No edema, Capillary Refill Less than 3 Seconds Skin: No rashes, No breakdown, dressing in groin intact Hospital Course: 1. NSTEMI/HTN - He presented with exertional chest pain that transitioned to occurring at rest as well which is why he came in. He is a non-smoker. On admission he had no EKG changes however his troponin continued to climb up and peaked at 2.14. He was intiated on medical management with aspirin, loading dose of plavix, therapeutic lovenox BID, statin, BB and ARB. He underwent a cardiac cath on 03/21 that showed multivessel CAD not amenable to stenting and therefore he was transferred to a tertiary care center for cardiac surgery. He was transferred back to the PCU on a nitroglycerin drip which he will be transferred on. During his stay his chest pain had resolved with all of the medical interventions. 2. DM2 - His oral hypoglycemics were discontinued on admission and he was placed on a SSI. He can be restarted on his home medications when discharged Patient Problems: Active and Suspected Problems NSTEMI (non-ST elevated myocardial infarction) (Acute) - Physical Exam Vital Signs Temp Pulse Resp BP Pulse Ox 98.1 F 80 20 H 135/92 H 99 03/21/18 07:06 03/21/18 10:45 03/21/18 10:45 03/21/18 10:45 03/21/18 10:45 Oxygen Flow Rate (L/min) 2 Oxygen Delivery Method Nasal Cannula Weight: 235 lb 7.259 oz Body Mass Index (BMI) 33.7 Intake and Output for Last 24 Hours 03/19/18 03/20/18 03/21/18 23:59 23:59 23:59 Intake Total 300 / 300 1760 / 1760 Balance 300 / 300 1760 / 1760 Laboratory Tests Past 24 Hrs 03/20/18 03/21/18 03/21/18 13:10 05:28 05:28 WBC 5.9 RBC 4.44 L Hgb 14.3 Hct 40.8 MCV 91.9 MCH 32.2 H MCHC 35.0 RDW 12.3 RDW Differential 40.9 Plt Count 202 MPV 10.0 Immature Gran % (Auto) 0.000 Neut % (Auto) 88.1 H Lymph % (Auto) 9.5 L [place] % (Auto) 2.2 Eos % (Auto) 0.2 Baso % (Auto) 0.0 Absolute Neuts (auto) 5.2 Absolute Lymphs (auto) 0.56 L Total Counted Not Reportable Differential Comment SCANNED PT 14.3 INR 1.1 APTT 30.9 Activated Clotting Time Sodium Potassium Chloride Carbon Dioxide Anion Gap BUN Creatinine Estim Creat Clear Calc Est GFR (MDRD) Af Amer Est GFR (MDRD) Non-Af BUN/Creatinine Ratio Glucose Calcium Troponin I 1.900 H* 03/21/18 03/21/18 05:28 08:36 WBC RBC Hgb Hct MCV MCH MCHC RDW RDW Differential Plt Count MPV Immature Gran % (Auto) Neut % (Auto) Lymph % (Auto) [place] % (Auto) Eos % (Auto) Baso % (Auto) Absolute Neuts (auto) Absolute Lymphs (auto) Total Counted Differential Comment PT INR APTT Activated Clotting Time 213 H Sodium 141 Potassium 4.5 Chloride 106 Carbon Dioxide 24.0 Anion Gap 11 BUN 18 Creatinine 1.05 Estim Creat Clear Calc 80.15 Est GFR (MDRD) Af Amer 94 Est GFR (MDRD) Non-Af 77 BUN/Creatinine Ratio 17.1 Glucose 254 H Calcium 8.9 Troponin I POC Glucose 03/21/18 03/21/18 03/20/18 11:09 07:02 23:08 POC Glucose 190 H 232 H 149 H 03/20/18 03/20/18 16:46 11:25 POC Glucose 193 H 233 H Home Medications: Medications to take at Discharge Empagliflozin [Jardiance] 25 mg PO DAILY 03/19/18 Glimepiride [Amaryl] 4 mg PO BID 03/19/18 Metformin HCl 1,000 mg PO BID 03/19/18 Aspirin E.C. [Ecotrin] 81 mg PO DAILY@0800 tablet 03/21/18 Atorvastatin Calcium [Lipitor] 40 mg PO QHS tablet 03/21/18 Losartan Potassium [Cozaar] 25 mg PO DAILY tablet 03/21/18 Metoprolol Tartrate [Lopressor (beta sp)] 25 mg PO BID tablet 03/21/18 Nitroglycerin Infusion 25 mg IV .[id number] bottle 03/21/18 Primary Care Physician: Care Physician,No Primary [Primary Care Provider] - Disposition: Acute care Hospital Minutes spent on discharge:: 35 Patient Condition:: Stable Medical Necessity - Tobacco Use Smoking Status: Never smoker Meaningful Use Info Meaningful Use Diagnoses (Choose all that apply): AMI - AMI Aspirin given w/in 24hrs of arrival?: Yes ASA at discharge?: Yes Statins at discharge?: Yes Frankie/ARB at discharge?: Yes Beta Sp at discharge?: Yes Done w/ Acute ND measure.: Yes Code Visit Inpatient E&M: [id number] Disch Hosp
[2018-03-21] MEDS: Insulin Lispro 100 UNIT/ML INSULN.PEN SQ ×2 (13:03→17:23)
--- NOTE | 2018-03-21 16:32 | CL.D_ITS ---
Patient Name: MOIRA BUCKNER Study Date: 03/21/2018 Performing: Vlad Rodriguez MD Ht: 70 inches 178 cm : 1960 Wt: 236.2 lbs 107 kg Age: 57 Gender: male BSA: 2.24 PROCEDURE(S) PERFORMED [id number], CORONARY OR GRAFT, INITIAL VESSEL CLINICAL PROFILE AND INDICATIONS Patient presents with NSTEMI for urgent cardiac cath Indications: New Onset Angina <= 2 months, Worsening Angina, Suspected CAD, LV Dysfunction, Worse oliva Angina Heart Failure: NYHA Class: 1, Newly Diagnosed: Yes, Heart Failure Type: Systolic Stress/Imaging Stress/Image Study Performed: No Stress/Image Study Performed: No Angina Classification Anginal Classification w/in 2 Weeks: CCS III CAD Presentations: Non-STEMI. Symptom onset Date/Time: 03/19/2018 Time Not Available Non-STEMI. Comorbidities/Risk Factors: Hypertension Dyslipidemia Family History of Premature CAD CONCLUSIONS Elevated Left Ventricular End Diastolic Pressure Segmented LV systolic dysfunction- Mild LVEF: by LV gram 55 % [place] Multivessel CAD RECOMMENDATIONS Risk factor modification Medical therapy Staged for FFR DESCRIPTION OF PROCEDURE The patient arrived to the procedure lab. The risks and benefits of the procedure as well as a full d escription of our services here and current unavailability of surgical backup were fully explained to the patient and/or their significant other prior to the catheterization. The Timeout was completed, verifying the correct patient and procedure. The patient's procedural site was prepped and draped in the usual fashion. Local anesthetic was given subcutaneously to right groin region with Lidocaine 2%. Using a modified Seldinger technique, arterial access was obtained via the right femoral artery, a 4 Fr sheath was inserted Left Coronary Artery selective angiography was performed in multiple views us ing a 4 Fr. JL5 catheter. Right Coronary Artery selective angiography was then performed in multiple views using a 4 Fr. 3DRC catheter. Left Ventriculography was performed in COLIN projection using a 4 Fr . Pigtail catheter. LV to AO pullback pressures were then recorded.Contrast was injected through the sheath and the Right Iliac and Femoral artery were assessed for possible closure device.The arterial sheath was pulled and a Mynx closure device was deployed for hemostasis CORONARY ANGIOGRAPHY DOMINANCE: Right Dominant LEFT HEART ASSESSMENT Left Ventricular Ejection Fraction: by LV Gram 55 % Anterior Hypokinesis. Apical Hypokinesis. Inferior Basal Hypokinesis. Inferior Mid Hypokinesis Elevated Left Ventricular End Diastolic Pressure LVEDP: 33 mmHg LEFT MAIN: Angiographically normal LEFT ANTERIOR DECENDING ARTERY: Mild luminal irregularities PROX LAD: Eccentric: 50 % Stenosis DIAGONAL 1: Proximal - Long: Diffuse: Irregular: 85 % Stenosis CIRCUMFLEX ARTERY: PROX CIRC: Mild luminal irregularities OM 1: Proximal - is subtotally occluded, Mid - 95 % Stenosis RIGHT CORONARY ARTERY: PROX RCA: Long: Diffuse: Irregular: 85 % Stenosis MID RCA: is subtotally occluded DISTAL RCA: fills late, faintly, and partially from bridging collaterals and more predominantly from left to right collateral flow COLLATERAL FLOW: Collateral flow from Left to Right VALVE FINDINGS: Normal Aortic Valve function Normal Mitral Valve function AORTIC ROOT: Angiographically normal COMPLICATIONS No Complications PROCEDURE MEDICATIONS Versed 1 mg IV Fentanyl 25 mcg IV Fentanyl 25 mcg IV Oxygen: 2 L/min via nasal cannula Adenosine drip for FFR 30 ml IV @ 03/21/2018 08:33:49 Heparin 6000 unit(s) IV 03/21/2018 08:27:33 Nitro glycerin 25mg / 250ml D5W @ 5 mcg/min IV started 03/21/2018 08:42:37 Nitro Paste 1 in removed 03/21/2018 08:42:58 SUMMARY OF HEMODYNAMIC DATA Time AIR REST ECG 07:25:56 AO 136/92 (111) SA 07:44:27 LV 149/27, 48 07:53:46 LV 150/10, 33 07:53:53 LV 148/2, 33 07:55:21 LVp 150/3, 32 07:55:27 AOp 147/88 (116) 07:55:32 Signed By Vlad Rodriguez MD On 03/21/2018 16:31:31 Vlad Rodriguez MD
[2018-03-21 17:56] LABS: Bedside Glucose 196 mg/dL (70-110)
--- NOTE | 2018-03-21 18:14 | PCM.PN.CARD ---
Subjectve: The patient underwent diagnostic cardiac catheterization earlier this day. He was found to have angiographically significant multivessel disease. He was recommended for consideration for tertiary care center evaluation with coronary artery bypass grafting surgery. He appears without acute adverse event at this time. Objective: Vital Signs Temp Pulse Resp BP Pulse Ox 98.9 F 95 18 131/95 H 98 03/21/18 15:11 03/21/18 15:57 03/21/18 15:11 03/21/18 15:11 03/21/18 15:11 Oxygen Flow Rate (L/min) 2 Oxygen Delivery Method Nasal Cannula Weight: 235 lb 7.259 oz Body Mass Index (BMI) 33.7 Intake and Output for Last 24 Hours 03/19/18 03/20/18 03/21/18 23:59 23:59 23:59 Intake Total 300 / 300 1760 / 1760 1080 / 1080 Output Total 300 / 300 Balance 300 / 300 1760 / 1760 780 / 780 General: Awake, Alert, Oriented x 3, Cooperative, No Acute Distress HEENT: Atraumatic, Normocephalic, PERRL, EOMI, Sclera Non Icteric Oral: Moist Mucosa Neck: Supple, Good ROM, No JVD Lungs: Clear to auscultation Cardiovascular: Regular Rhythm, Normal S1, Normal S2 Vascular: Normal Femoral Pulses Abdomen: Bowel Sounds Present, Soft, Non Tender Extremities: No Cyanosis, No Clubbing, No edema Neurological: No Focal Motor or Sensory Deficit Psych/Mental Status: Appropriate, Normal Affect 03/21/18 05:28: WBC 5.9, RBC 4.44 L, Hgb 14.3, Hct 40.8, MCV 91.9, MCH 32.2 H, MCHC 35.0, RDW 12.3, RDW Differential 40.9, Plt Count 202, MPV 10.0, Immature Gran % (Auto) 0.000, Neut % (Auto) 88.1 H, Lymph % (Auto) 9.5 L, [place] % (Auto) 2.2, Eos % (Auto) 0.2, Baso % (Auto) 0.0, Absolute Neuts (auto) 5.2, Total Counted Not Reportable 03/21/18 05:28: PT 14.3, INR 1.1, APTT 30.9 03/21/18 05:28: Sodium 141, Potassium 4.5, Chloride 106, Carbon Dioxide 24.0, Anion Gap 11, BUN 18, Creatinine 1.05, Est GFR (MDRD) Af Amer 94, Est GFR (MDRD) Non-Af 77, BUN/Creatinine Ratio 17.1, Glucose 254 H, Calcium 8.9 Rhythm: Sinus rhythm Echocardiogram: Please see official report Cardiac Cath: Please see official report Medical Necessity - Tobacco Use Smoking Status: Never smoker Assessment/Plan 1. Acute coronary syndrome/non-ST segment elevation NM The patient presents with symptoms and subsequent objective findings based on cardiac enzymes compatible with an acute coronary syndrome/non-ST segment elevation NM. The patient appears to be symptomatically improved status post initiation of medical therapy with aspirin and nitrates. He has undergone evaluation with diagnostic cardiac catheterization. He was found to have angiographically significant multivessel disease. He underwent LAD FFR as well. The report was 0.82. His case was discussed with Dr. Eliazar Sanchez of CT surgery at [facility]. He agreed to accept the patient for further evaluation and care for coronary bypass grafting surgery. 2. Hypertension The patient's blood pressure was elevated upon arrival to hospital. It is unclear whether this represents a history of hypertension or being secondary to his ongoing discomfort. His blood pressures will need to be followed. He can be treated as needed. 3. Diabetes mellitus The will continue care per internal medicine. Comment: The patient's case was discussed and reviewed with the patient, his spouse, and Dr. Whitt. This note was generated with [employer] software. It may contain incorrect words, spelling, and punctuation that were not noted in checking the note before signing.
--- NOTE | 2018-03-21 18:17 | PN.CARD_ITS ---
Subjectve: The patient underwent diagnostic cardiac catheterization earlier this day. He was found to have angiographically significant multivessel disease. He was recommended for consideration for tertiary care center evaluation with coronary artery bypass grafting surgery. He appears without acute adverse event at this time. Objective: Vital Signs Temp Pulse Resp BP Pulse Ox 98.9 F 95 18 131/95 H 98 03/21/18 15:11 03/21/18 15:57 03/21/18 15:11 03/21/18 15:11 03/21/18 15:11 Oxygen Flow Rate (L/min) 2 Oxygen Delivery Method Nasal Cannula Weight: 235 lb 7.259 oz Body Mass Index (BMI) 33.7 Intake and Output for Last 24 Hours 03/19/18 03/20/18 03/21/18 23:59 23:59 23:59 Intake Total 300 / 300 1760 / 1760 1080 / 1080 Output Total 300 / 300 Balance 300 / 300 1760 / 1760 780 / 780 General: Awake, Alert, Oriented x 3, Cooperative, No Acute Distress HEENT: Atraumatic, Normocephalic, PERRL, EOMI, Sclera Non Icteric Oral: Moist Mucosa Neck: Supple, Good ROM, No JVD Lungs: Clear to auscultation Cardiovascular: Regular Rhythm, Normal S1, Normal S2 Vascular: Normal Femoral Pulses Abdomen: Bowel Sounds Present, Soft, Non Tender Extremities: No Cyanosis, No Clubbing, No edema Neurological: No Focal Motor or Sensory Deficit Psych/Mental Status: Appropriate, Normal Affect 03/21/18 05:28: WBC 5.9, RBC 4.44 L, Hgb 14.3, Hct 40.8, MCV 91.9, MCH 32.2 H, MCHC 35.0, RDW 12.3, RDW Differential 40.9, Plt Count 202, MPV 10.0, Immature Gran % (Auto) 0.000, Neut % (Auto) 88.1 H, Lymph % (Auto) 9.5 L, [place] % (Auto) 2.2, Eos % (Auto) 0.2, Baso % (Auto) 0.0, Absolute Neuts (auto) 5.2, Total Counted Not Reportable 03/21/18 05:28: PT 14.3, INR 1.1, APTT 30.9 03/21/18 05:28: Sodium 141, Potassium 4.5, Chloride 106, Carbon Dioxide 24.0, Anion Gap 11, BUN 18, Creatinine 1.05, Est GFR (MDRD) Af Amer 94, Est GFR (MDRD) Non-Af 77, BUN/Creatinine Ratio 17.1, Glucose 254 H, Calcium 8.9 Rhythm: Sinus rhythm Echocardiogram: Please see official report Cardiac Cath: Please see official report Medical Necessity - Tobacco Use Smoking Status: Never smoker Assessment/Plan 1. Acute coronary syndrome/non-ST segment elevation AR The patient presents with symptoms and subsequent objective findings based on cardiac enzymes compatible with an acute coronary syndrome/non-ST segment essie vation AR. The patient appears to be symptomatically improved status post initiation of medical therapy with aspirin and nitrates. He has undergone evaluation with diagnostic cardiac catheterization. He was found to have angiographically significant multivessel disease. He underwent LAD FFR as well. The report was 0.82. His case was discussed with Dr. Eliazar Sanchez of CT surgery at [facility]. He agreed to accept the patient for further evaluation and care for coronary bypass grafting surgery. 2. Hypertension The patient's blood pressure was elevated upon arrival to hospital. It is unclear whether this represents a history of hypertension or being secondary to his ongoing discomfort. His blood pressures will need to be followed. He can be treated as needed. 3. Diabetes mellitus The will continue care per internal medicine. Comment: The patient's case was discussed and reviewed with the patient, his spouse, and Dr. Whitt. This note was generated with [employer] software. It may contain incorrect words, spelling, and punctuation that were not noted in checking the note before signing.
--- NOTE | 2018-03-21 19:27 | NURSING ---
report called to [facility] nurse Kahsif toledo [phone] room [id number]
== END 2018-03-21 20:05 | disposition short-term general hospital (02) | DRG 190 ==
LOC: ED 13:34 → PCU 14:30
PROVIDERS: Internal Medicine Cardiovascular Disease; Admitting Provider Family Medicine; Emergency Provider Emergency Medicine; Visit Provider Family Medicine
DX: I21.4 Non-ST elevation (NSTEMI) myocardial infarction (principal); I10 Essential (primary) hypertension; E11.9 Type 2 diabetes mellitus without complications; Z79.84 Long term (current) use of oral hypoglycemic drugs; Z23 Encounter for immunization
CPT/HCPCS: 36415; 71045; 80048; 80061; 80076; 82962; 84484; 85025; 85347; 85610; 85730; 93005; 93306; 93458; 93571; 97802; 99152; 99153; 99284; C1760; J0153; J7030; Q9957; 90686; A4216; C1769; C1887; C1894; C8929; Q9967

== ENCOUNTER → 2018-04-19 10:39 | Outpatient (CLI) | payer MEDICAID, SELFPAY ==
--- NOTE | 2018-04-19 11:45 | PCM.CR.HP2 ---
CR - History & Physical - General Arrival date:: 04/19/18 Arrival time:: 10:30 Date of Referral:: 04/13/18 Date of CR Evaluation:: 04/19/18 Referring Physician: Dr. Mio Abdi; Dr. Vlad Rodriguez; Dr. 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 Were there any complications?: none; one short period of A-fib but resolved. - Medications Home Medications: Ambulatory Orders Medication Instructions Recorded Empagliflozin [Jardiance] 25 mg PO DAILY 03/19/18 Glimepiride [Amaryl] 4 mg PO BID 03/19/18 Metformin HCl 1,000 mg PO BID 03/19/18 Aspirin E.C. [Ecotrin] 81 mg PO DAILY@0800 tablet 03/21/18 Atorvastatin Calcium [Lipitor] 40 mg PO QHS tablet 03/21/18 Losartan Potassium [Cozaar] 25 mg PO DAILY tablet 03/21/18 Metoprolol Tartrate [Lopressor 25 mg PO BID tablet 03/21/18 (beta hector)] Nitroglycerin Infusion 25 mg IV .[id number] bottle 03/21/18 Insulin Glargine [Lantus (BKC)] units SC DAILY PRN PRN 04/19/18 Insulin Lispro [Humalog Kwikpen] 04/19/18 - Allergies Allergies/Adverse Reactions: Allergies oyster extract Allergy (Verified 04/19/18 11:53) Rash shrimp Allergy (Verified 03/19/18 12:07) Rash - Sleep Disorder Evaluation Hx of Sleep Apnea: Yes Do you snore loudly (louder than talking or can be heard through closed doors)?: Yes - wears CPAP at HS History of Hypertension (for STOP score): Yes Advanced Directives - Advanced Directives Power of Director Of Integrated Marketing: Yes - /Daughter Living Will: Yes Advance Directives Information Provided: No Advance Directives on File: No DNR Order?:: No - MOLST See MOLST form: No Past Medical History - Past Medical Illness Medical History: Past Medical History (Last Updated 04/19/18 @ 11:55 by Andre Ramon, AUTOMOTIVE VEHICLE INSPECTOR, POWER SAW OPERATOR, BS) CAD (coronary artery disease) I25.10 Hyperlipidemia E78.5 Type II diabetes mellitus E11.9 Hypertension I10 - Past Surgical History Surgical History: no surgical history, - - lithotripsy for kidney stone bilateral Social History - Smoking History Smoking Status: Never smoker Hx Tobacco Use: No Hx Smoking Exposure: No - Alcohol Use Alcohol Usage: Yes - 40 years ago. 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 - Hobbies, Recreation, Social Activities Hobbies: Hiking - hunting, fishing, boating, working on vehicle., Other Recreational Activities: I am able to engage in most, but not all activities Social Environment - Status Marital Status: - Current Living Arrangements Living Environment:: Spouse - Children How many children do you have?: 2 Do any of your children live nearby?: Yes - at home, one off to college. - Safety Do you feel safe in your surroundings?: Yes - Assistance Do you need any assistance at home?: none Review of Systems - Review of Systems Hints: Right click = Denies (Slash). Left click = Reports ([place]) Review of Present Symptoms: Reports: Shortness of Breath with Exertion - still alittle bit of dypnea depending on activity and speed., Operative Discomfort - wearing support vest device, Fatigue - partly because of difficulty sleeping, Appetite - Special Diet - controlling diet, so learning to adapt to the new program.. Denies: Angina, Dizziness/Lightheadedness, Heart Arrhythmia/Irregularities, Appetite - Normal, Sleep - Normal, Sexual Changes - Pain Is Patient Pain Free?: No Pain Level: 2/10 - dull ache at rest/chest incision Risk Factor Assessment - Chief Complaint Chief Complaint: Dilma is a 57 yr old male patient of Dr. Rodriguez and Dr. Mio Abdi who presents to cardiac rehab today following recent CABG procedure for 3 vessel bypass at [facility] on 03/28/2018. Patient is recovering well and adapting to sleep. - Vital Signs Temperature: 98.7 F Respiratory Rate: 16 Pulse Ox: 98 Blood Pressure: 126/68 Nailbeds:: pink - Pulse Pulse Rate: 66 Pulse Rhythm: Regular - Hypertension How long have you been treated?: borderline Hypertension 2-3 years prior to event. DM for 12 years. On medication(s)?: now Blood Pressure Sitting - Left Arm: 126/68 - Diabetes Diabetic History: Type II, Insulin Dependent - since discharge from hospital has been on insuling Kwikpen - Obesity Height: 5 ft 8 in Weight:: 235 lb Weight in Pounds: 235.0 lbs Weight Source: Standing Scale Body Mass Index (BMI): 35.7 Nutritional Referral for Obesity: Yes - Physical Inactivity Physical Inactivity: None - Risk Stratification Risk Guidelines: Lowest Risk: Risk Factor for Smoking, Risk Factor for Dyslipidemia, Risk Factor for Hypertension, Risk Factor for Sedentary Lifestyle, Risk Factor for Depression, Moderate Risk: Risk Factor for Diabetes, Highest Risk: Risk Factor for Obesity - For Smoking Smoking Risk Guidelines: Smoking Low Risk: None or quit greater than 6 months ago. Smoking Moderate Risk: Smoker or quit 6 months or less ago. Smoking High Risk: Smoker - For Dyslipidemia Dyslipidemia Risk Guidelines: Low Risk: Moderate Risk: High Risk: 15-25% fat 25.1-29% fat >/= 30% fat. <7% sat fat 7-9% sat fat >9% sat fat. <150 mg chol 150-299 mg chol >/= 300 mg chol. LDL <100 LDL 100-129 LDL >/= 130. Chol/HDL ratio <5.0 Chol/HDL ratio 5.0-6.0 Chol/HDL ratio >6.0. Triglycerides <100 Triglycerides 100-149 Triglycerides >/= 150 - For Diabetes Mellitus Diabetes Risk Guidelines: Diabetes Low Risk: HgA1c <6.5% and/or FBG <120. Diabetes Moderate Risk: HgA1c 6.6-7.9% and/or FBG 120-180. Diabetes High Risk: HgA1c >/= 8% and/or FBG >180 - For Obesity/Overweight Obesity/Overweight Risk Guidelines: Obesity Low Risk: BMI <25.0. Obesity Moderate Risk: BMI 25-29.9. Obesity High Risk: BMI >/= 30.0 - For Hypertension Hypertension Risk Guidelines: Hypertension Low Risk: Systolic <120 and Diastolic <80. Hypertension Moderate Risk: Systolic 120-139 and Diastolic 80-89. Hypertension High Risk: Systolic >/= 140 and Diastolic >/= 90 - For Sedentary Lifestyle Sedentary Lifestyle Risk Guidelines: Sedentary Lifestyle Low Risk: >/= 1,500 kcal/week. Sedentary Lifestyle Moderate Risk: 700-1,499 kcal/week. Sedentary Lifestyle High Risk: < 700 kcal/week - For Depression Depression Risk Guidelines: Depression Low Risk: Not clinically depressed. Depression Moderate Risk: Mildly depressed. Depression High Risk: Clinically depressed Motivation - Motivation to Participate On a scale of 1 to 10, how prepared are you to commit to attending program?: 9 What do you see as barriers to successfully being able to complete the program?: none What do you see as the benefits of succesfully completing the program? In other words, what do you hope to get out of participating in the program?: live longer, retire back down to [place] Are there issues you are dealing with that will interfere with completing the program?: none Do you have a spouse or signficant other, family or friends who will help support you to complete the program?: yes, sanjay soliz
--- NOTE | 2018-04-19 11:49 | CR.HP_ITS ---
CR - History & Physical - General Arrival date:: 04/19/18 Arrival time:: 10:30 Date of Referral:: 04/13/18 Date of CR Evaluation:: 04/19/18 Referring Physician: Dr. Mio Abdi; Dr. Vlad Rodriguez; Dr. Rick Carr Primary Diagnosis: CABG 03/28/2018 - History of Present Cardiac Event Onset Date: Enter Onset Date of cardiac illnesses in Comment field below Acute Myocardial Infarction within 12 months:: Yes - NSTEMI Coronary Artery Bypass Graft:: Yes - CABG x 3 vessel bypass at [facility] Type of Symptoms:: over several weeks notice climbing up and down tanker to open hatches noticed chest pain shortness of breath, then on wednesday woke up with uncontrolled chest pain and came to emergency room. Were there any complications?: none; one short period of A-fib but resolved. - Medications Home Medications: Ambulatory Orders Medication Instructions Recorded Empagliflozin [Jardiance] 25 mg PO DAILY 03/19/18 Glimepiride [Amaryl] 4 mg PO BID 03/19/18 Metformin HCl 1,000 mg PO BID 03/19/18 Aspirin E.C. [Ecotrin] 81 mg PO DAILY@0800 tablet 03/21/18 Atorvastatin Calcium [Lipitor] 40 mg PO QHS tablet 03/21/18 Losartan Potassium [Cozaar] 25 mg PO DAILY tablet 03/21/18 Metoprolol Tartrate [Lopressor 25 mg PO BID tablet 03/21/18 (beta hector)] Nitroglycerin Infusion 25 mg IV .[id number] bottle 03/21/18 Insulin Glargine [Lantus (BKC)] units SC DAILY PRN PRN 04/19/18 Insulin Lispro [Humalog Kwikpen] 04/19/18 - Allergies Allergies/Adverse Reactions: Allergies oyster extract Allergy (Verified 04/19/18 11:53) Rash shrimp Allergy (Verified 03/19/18 12:07) Rash - Sleep Disorder Evaluation Hx of Sleep Apnea: Yes Do you snore loudly (louder than talking or can be heard through closed doors)?: Yes - wears CPAP at HS History of Hypertension (for STOP score): Yes Advanced Directives - Advanced Directives Power of Precinct Police Sergeant: Yes - /Daughter Living Will: Yes Advance Directives Information Provided: No Advance Directives on File: No DNR Order?:: No - MOLST See MOLST form: No Past Medical History - Past Medical Illness Medical History: Past Medical History (Last Updated 04/19/18 @ 11:55 by Andre Ramon, CHAINSTITCH SEWING MACHINE OPERATOR, STAPLE SHEAR OPERATOR, BS) CAD (coronary artery disease) I25.10 Hyperlipidemia E78.5 Type II diabetes mellitus E11.9 Hypertension I10 - Past Surgical History Surgical History: no surgical history, - - lithotripsy for kidney stone bilateral Social History - Smoking History Smoking Status: Never smoker Hx Tobacco Use: No Hx Smoking Exposure: No - Alcohol Use Alcohol Usage: Yes - 40 years ago. 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 - Hobbies, Recreation, Social Activities Hobbies: Hiking - hunting, fishing, boating, working on vehicle., Other Recreational Activities: I am able to engage in most, but not all activities Social Environment - Status Marital Status: - Current Living Arrangements Living Environment:: Spouse - Children How many children do you have?: 2 Do any of your children live nearby?: Yes - at home, one off to college. - Safety Do you feel safe in your surroundings?: Yes - Assistance Do you need any assistance at home?: none Review of Systems - Review of Systems Hints: Right click = Denies (Slash). Left click = Reports ([place]) Review of Present Symptoms: Reports: Shortness of Breath with Exertion - still alittle bit of dypnea depending on activity and speed., Operative Discomfort - wearing support vest device, Fatigue - partly because of difficulty sleeping, Appetite - Special Diet - controlling diet, so learning to adapt to the new program.. Denies: Angina, Dizziness/Lightheadedness, Heart Arrhythmia/Irregularities, Appetite - Normal, Sleep - Normal, Sexual Changes - Pain Is Patient Pain Free?: No Pain Level: 2/10 - dull ache at rest/chest incision Risk Factor Assessment - Chief Complaint Chief Complaint: Dilma is a 57 yr old male patient of Dr. Rodriguez and Dr. Mio Abdi who presents to cardiac rehab today following recent CABG procedure for 3 vessel bypass at [facility] on 03/28/2018. Patient is recovering well and adapting to sleep. - Vital Signs Temperature: 98.7 F Respiratory Rate: 16 Pulse Ox: 98 Blood Pressure: 126/68 Nailbeds:: pink - Pulse Pulse Rate: 66 Pulse Rhythm: Regular - Hypertension How long have you been treated?: borderline Hypertension 2-3 years prior to event. DM for 12 years. On medication(s)?: now Blood Pressure Sitting - Left Arm: 126/68 - Diabetes Diabetic History: Type II, Insulin Dependent - since discharge from hospital has been on insuling Kwikpen - Obesity Height: 5 ft 8 in Weight:: 235 lb Weight in Pounds: 235.0 lbs Weight Source: Standing Scale Body Mass Index (BMI): 35.7 Nutritional Referral for Obesity: Yes - Physical Inactivity Physical Inactivity: None - Risk Stratification Risk Guidelines: Lowest Risk: Risk Factor for Smoking, Risk Factor for Dyslipidemia, Risk Factor for Hypertension, Risk Factor for Sedentary Lifestyle, Risk Factor for Depression, Moderate Risk: Risk Factor for Diabetes, Highest Risk: Risk Factor for Obesity - For Smoking Smoking Risk Guidelines: Smoking Low Risk: None or quit greater than 6 months ago. Smoking Moderate Risk: Smoker or quit 6 months or less ago. Smoking High Risk: Smoker - For Dyslipidemia Dyslipidemia Risk Guidelines: Low Risk: Moderate Risk: High Risk: 15-25% fat 25.1-29% fat >/= 30% fat. <7% sat fat 7-9% sat fat >9% sat fat. <150 mg chol 150-299 mg chol >/= 300 mg chol. LDL <100 LDL 100-129 LDL >/= 130. Chol/HDL ratio <5.0 Chol/HDL ratio 5.0-6.0 Chol/HDL ratio >6.0. Triglycerides <100 Triglycerides 100-149 Triglycerides >/= 150 - For Diabetes Mellitus Diabetes Risk Guidelines: Diabetes Low Risk: HgA1c <6.5% and/or FBG <120. Diabetes Moderate Risk: HgA1c 6.6-7.9% and/or FBG 120-180. Diabetes High Risk: HgA1c >/= 8% and/or FBG >180 - For Obesity/Overweight Obesity/Overweight Risk Guidelines: Obesity Low Risk: BMI <25.0. Obesity Moderate Risk: BMI 25-29.9. Obesity High Risk: BMI >/= 30.0 - For Hypertension Hypertension Risk Guidelines: Hypertension Low Risk: Systolic <120 and Diastolic <80. Hypertension Moderate Risk: Systolic 120-139 and Diastolic 80-89. Hypertension High Risk: Systolic >/= 140 and Diastolic >/= 90 - For Sedentary Lifestyle Sedentary Lifestyle Risk Guidelines: Sedentary Lifestyle Low Risk: >/= 1,500 kcal/week. Sedentary Lifestyle Moderate Risk: 700-1,499 kcal/week. Sedentary Lifestyle High Risk: < 700 kcal/week - For Depression Depression Risk Guidelines: Depression Low Risk: Not clinically de pressed. Depression Moderate Risk: Mildly depressed. Depression High Risk: Clinically depressed Motivation - Motivation to Participate On a scale of 1 to 10, how prepared are you to commit to attending program?: 9 What do you see as barriers to successfully being able to complete the program?: none What do you see as the benefits of succesfully completing the program? In other words, what do you hope to get out of participating in the program?: live longer, retire back down to [place] Are there issues you are dealing with that will interfere with completing the program?: none Do you have a spouse or signficant other, family or friends who will help support you to complete the program?: yes, sanjay soliz
[2018-04-19 12:06] VITALS: BP 126/68; PULSE 66; RESP 16; TEMP 37.1; O2SAT 98; BMI 35.7
--- NOTE | 2018-04-19 13:52 | CR.ITP_ITS ---
General Information - General Information Admitting Diagnosis: CABGX 3 COROANRY VESSEL 03/28/2018; SURGEON TO [facility] TO START CARDIAC REHAB ON 05/09/2018. - Education/Goals Barriers to Learning: None Individual Counseling: Initial Assessment: Abnormal Cholesterol Levels, High Blood Pressure, Overweight/Obesity, Diabetes Cardiac Rehabilitation Goals: 1. Maintain the individual as the primary focus of care. 2. To improve the patient's quality of life. 3. Identification of cardiac risk factors and provide cardiac risk factor management. 4. Enhance the psychosocial status of the patient. 5. Reconditioning enough to allow the patient to resume customary activities. 6. Control symptoms of cardiac disease Scale for measuring improvement of personal goals: Enter appropriate number in Comments. 2 = Unchanged. 3 = Slightly Better. 4 = Moderate Improvement. 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, Improve knowledge of cardiac disease, Improve muscle strength and endurance, Improve diet and eating habits (eat healthier), Control risk factors (learn risk factor modification) Exercise - Initial Assessment - Visit Date of Eval: 04/19/18 - Can Not start CR until *05/09/2018 Session #:: 0 - Stages of Change Stages of Change:: Action - Exercise Prescription Mode:: Treadmill, Airdyne, NuStep Angina with exercise?: No Target Heart Rate:: 114-122 - Hypertension Do any of the following apply?: Yes, Medication Resting Blood Pressure:: 126/68 - Intervention Home Exercise/Activity Goal:: Sitting Time <3 hrs/day - Education Goals:: Warm-up, RPE HUMBLE Scale, S/S, Safe Exercise, Self-Monitoring - Exercise Program Goals Exercise Program Goals: Aerobic Activity >30 min Nutrition - Initial Assessment - Program Goals Nutrition Program Goals: LDL <70. Total Cholesterol <200. HDL >45. Triglycerides <150. HgbA1C <7%. BMI <25 - Visit Date of Assessment:: 04/19/18 - Stages of Change Stages of Change:: Action - Diabetes Diabetes:: Yes Insulin: Yes Non-Insulin Dependent?: Yes Do you monitor your blood sugar at home?: Yes - Weight Management Height: 5 ft 8 in Weight:: 235 lb Body Fat %:: 35.7 Goal % Body Fat:: 30 - Intervention Referral to dietitian:: Yes Referral to Diabetic Clinic:: Yes Will attend diet classes:: Yes - Education Gave educational materials for:: Signs & symptoms of hypoglycemia, Signs & symptoms of hyperglycemia, Relate diabetes to coronary artery disease, Healthy eating Tobacco - Initial Assessment - Program Goals Tobacco Program Goals: Complete smoking cessation. Attend education classes. Improve Knowledge Test score - Stage of Change Stages of Change:: Action - Learning Barriers Learning Barriers: Ready to Learn - Family Support Do you have family support?: Yes - Tobacco Use Tobacco Use: Non-smoker Do you use smokeless tobacco?: No - Intervention Smoking Cessation Referral:: No Individual Education/Counseling:: No Education Schedule Given:: Yes - Education Gave educational material for:: Coronary artery disease, Risk factors, Sexuality, Medical compliance, Cardiac A&P, Angina signs & symptoms Psychosocial - Initial Assess - Target Goals Target Goals: Assess presence or absence of depression. Using a valid screening tool, maximizes coping skills. Positive support system - Stages of Change Stages of Change:: Action - Psychosocial Test Tool Used:: HANDS Depression Questionnaire - Intervention PS - Interventions: Yes Attend Stress Management Classes, No Referral to Mental Health, No Referral to [facility] Case Management, No Referral to Physician, No Uses Stress Management Skills - Education Gave educational materials for:: Coping techniques, Signs & symptoms of depression, Stress management, Relaxation techniques - Patient/Program Goal Preventative Medication(s):: Aspirin, Clopidogrel, Beta hector, Statin/lipid - Assistive Devices Assistive Devices:: None Fall Risk Assessed:: Yes Patient Health Questionnaire Initial Assessment 1. Little interest or pleasure in doing things: Not at all 2. Feeling down, depressed, or hopeless: Not at all 3. Trouble falling or staying asleep, or sleeping too much: Nearly every day 4. Feeling tired or having little energy: Several days 5. Poor appetite or overeating: Not at all 6. Feeling bad about yourself -- or that you are a failure or have let yourself or your family down: Several days 7. Trouble concentrating on things, such as reading the newspaper or watching t elevision: Several days 8. Moving or speaking so slowly that other people could have noticed. Or the opposite - being so fidgety or restless that you have been moving around a lot more than usual: Not at all 9. Thoughts that you would be better off , or of hurting yourself in some way: Not at all How difficult have these problems made it for you to do your work, take care of things at home, or get along with other people?: Somewhat difficult Total Score: 6 CARLENE-Q SV Test - Statements CAD is a disease of the arteries in the heart: False Examples of risk factors for heart disease: True Angina is chest pain or discomfort: True The benefits of resistance training include: True Eating more meat and dairy products: False Anti-platelet medications such as aspirin are important: True The only effective way to manage stress: False An exercise warm-up slowly increases heart rate: True Prepared, processed foods usually have high sodium: True Depression is common after a heart attack: True The statin medications lower cholesterol: True To control blood pressure, lower the amount of sodium: True If someone gets chest discomfort during walking: False Transfats are partially hydrogenated vegetable oils: I Don't Know Sleep apnea that is not treated increases the risk: False To control cholesterol, one should become a vegetarian: False Someone knows if he/she is exercising at the right level: True Diabetes cannot be prevented with exercise & health eating: True Stress is a large risk for heart attack: True A diet that can help lower blood pressure is rich in: True - Total Score Total Correct Responses: 18 Self-Efficacy Initial Assessment We would like to know how confident you are in doing certain activities. Please select your confidence level for:: Select your confidence level for the following using the scale 1-10 where 1 is not at all confident and 10 is totally confident. Your score is the average of all 6 responses. Fatigue: How confident are you that you can keep the fatigue caused by your disease from interfering with the things you want to do? Select Number: 8 Physical Discomfort or Pain: How confident are you that you can keep the physical discomfort or pain of your disease from interfering with the things you want to do? Select Number: 6 Emotional Distress: How confident are you that you can keep the emotional distress caused by your disease from interfering with the things you want to do? Select Number: 9 Other Symptoms or Health Problems: How confident are you that you can keep other symptoms or health problems from interfering with the things you want to do? Select Number: 8 Different Tasks and Activities: How confident are you that you can do the different tasks and activities needed to manage your health condition so as to reduce your need to see a doctor? Select Number: 9 Medication: How confident are you that you can do things other than just taking medication to reduce how much your illness affects your everyday life? Select Number: 10 Total Score:: 8 Nutrition Survey - Nutrition Survey Instructions Scoring Instructions: Scoring is as follows: Yes = 1 points. No = 0 point. Patient score that is >/=12 is considered to be at potential nutritional risk and could benefit from a referral to a registered dietitian. - Nutrition Survey Initial Have you lost >10 lbs over the past 2 months without trying?: No Are you following a special diet at home for diabetes, low fat, or low salt?: Yes Are you interested in meeting with a dietitian for help understanding your diet?: Yes Do you eat less than 3 meals a day?: No Do you eat fatty meats (pichardo, sausage, ribs, etc), fried foods, desserts, large amounts of salad dressings, margarine, butter, or cheese most days?: Yes Do you have food allergies? [Enter types in comment field]: Yes Do you eat in restaurants more than 3 times a week?: No Do you season food with salt, seasoning salt, or garlic salt?: No Do you used canned, boxed, frozen meals, or soups, seasoning packets?: No Total Score:: 4
[2018-04-19 13:58] VITALS: BP 126/68
== END ==
PROVIDERS: Family Provider Family Medicine; PCP Family Medicine
DX: I25.10 Atherosclerotic heart disease of native coronary artery without angina pectoris (principal); E11.9 Type 2 diabetes mellitus without complications; I10 Essential (primary) hypertension; E78.5 Hyperlipidemia, unspecified

== ENCOUNTER 2018-04-26 20:13 | Emergency (ER) | payer MEDICAID, SELFPAY ==
[2018-04-19 12:06] VITALS: BMI 35.7
[2018-04-26 20:17] VITALS: BP 120/62; PULSE 88; RESP 14; TEMP 38; O2SAT 96; BMI 31.9
--- NOTE | 2018-04-26 21:38 | ED.VISSUMM ---
- ER Visit Summary Date of Service: 04/26/18 Chief Complaint: Left lower leg redness History of Present Illness: The patient is a 57 M status post recent quadruple bypass done at [facility]. Patient has known history of CAD, [place], insulin-dependent diabetes, hypertension. Recent admission to [facility] had cardiac catheterization and then was transferred to [facility] and had a quadruple bypass. Patient's been doing well. Today noticed redness and discomfort in his left lower leg. He was seen by a nurse practitioner who started him on Keflex 500 4 times daily. He is taken 1 pill so far. States he does have a low-grade fever. Denies nausea, vomiting, diarrhea or chills. His blood sugars been running about 150. Physical Examination: Middle-aged male no acute distress. Vital signs stable temperature 100.4. He does not look septic or toxic. He is in no distress. HEENT exam unremarkable. Neck nontender. Lungs clear to auscultation bilaterally. Heart regular rate and rhythm. Chest wall is well-healing sternotomy incision. No discharge. No redness. Abdomen soft and nontender. Normal bowel sounds. Patient is moving all 4 extremities. They are neurovascularly intact. He has vein harvesting incision is well healing along his left medial thigh. There is no cellulitis or pus. In his left lower leg on the medial aspect of his lower leg there is an area of redness at the proximal a 4 x 4 inches. Mildly tender. No discharge. Calf is nontender there is no edema or cords. This does not appear to be a blood clot. Skin is mildly tender to touch. Test Results: None Emergency Department Course and Treatment: Patient is already started on Keflex. He did take 1 dose of his home antibiotic with him. He will also take a third dose tonight. He will continue his antibiotic 4 times a day. Follow-up with his primary care physician Dr. Carr by Wednesday. Return if he is feeling worse or if the area of redness is getting larger. The area has been traced out. Treatment Plan: Continue with antibiotic 4 times a day. Follow-up with his primary care physician this week. Return if worse. Disposition: Discharge Impression: Acute left lower extremity soft tissue cellulitis Status post CABG History of insulin-dependent diabetes This note was generated with eGamesation software. It may contain incorrect words, spelling, and punctuation that were not noted in review of the chart prior to signing ED Disposition - Plan for ED Patient: Chief Complaint: Cellulitis Referrals: Rick Carr MD [Primary Care Provider] -
--- NOTE | 2018-04-26 21:43 | ED.DCSUM_ITS ---
- ER Visit Summary Date of Service: 04/26/18 Chief Complaint: Left lower leg redness History of Present Illness: The patient is a 57 M status post recent quadruple bypass done at [facility]. Patient has known history of CAD, [place], insulin- dependent diabetes, hypertension. Recent admission to [facility] had cardiac catheterization and then was transferred to [facility] and had a quadruple bypass. Patient's been doing well. Today noticed redness and discomfort in his left lower leg. He was seen by a nurse practitioner who started him on Keflex 500 4 times daily. He is taken 1 pill so far. States he does have a low-grade fever. Denies nausea, vomiting, diarrhea or chills. His blood sugars been running about 150. Physical Examination: Middle-aged male no acute distress. Vital signs stable temperature 100.4. He does not look septic or toxic. He is in no distress. HEENT exam unremarkable. Neck nontender. Lungs clear to auscultation bilaterally. Heart regular rate and rhythm. Chest wall is well-healing sternotomy incision. No discharge. No redness. Abdomen soft and nontender. Normal bowel sounds. Patient is moving all 4 extremities. They are neurovascularly intact. He has vein harvesting incision is well healing along his left medial thigh. There is no cellulitis or pus. In his left lower leg on the medial aspect of his lower leg there is an area of redness at the proximal a 4 x 4 inches. Mildly tender. No discharge. Calf is nontender there is no edema or cords. This does not appear to be a blood clot. Skin is mildly tender to touch. Test Results: None Emergency Department Course and Treatment: Patient is already started on Keflex. He did take 1 dose of his home antibiotic with him. He will also take a third dose tonight. He will continue his antibiotic 4 times a day. Follow-up with his primary care physician Dr. Carr by Wednesday. Return if he is feeling worse or if the area of redness is getting larger. The area has been traced out. Treatment Plan: Continue with antibiotic 4 times a day. Follow-up with his primary care physician this week. Return if worse. Disposition: Discharge Impression: Acute left lower extremity soft tissue cellulitis Status post CABG History of insulin-dependent diabetes This note was generated with Distraation software. It may contain incorrect words, spelling, and punctuation that were not noted in review of the chart prior to signing ED Disposition - Plan for ED Patient: Chief Complaint: Cellulitis Referrals: Rick Carr MD [Primary Care Provider] -
--- NOTE | 2018-04-26 21:43 | ED.DEP ---
ED Disposition - Plan for ED Patient: Disposition: Home or Assisted Living Chief Complaint: Cellulitis Instructions: ED Staph Infec Abx Tx Only Prescriptions: Oxycodone HCl/Acetaminophen [Oxycodon-Acetaminophen 7.5-325] 1 ea PO Q4H PRN PRN #20 tab PRN Reason: Pain Referrals: Rick Carr MD [Primary Care Provider] - 3-5 Days Additional Instructions: Continue your current antibiotic the cephalexin 1 pill 4 times a day. Take it again the night before you go to bed. Return if feeling worse or if the area of redness gets a lot larger. Follow-up with your doctor by the end of this week.
--- OUTSIDE RECORDS SUMMARY | 2018-06-22 10:16 | XMS RPT_ITS ---
:1960 Author Organization OHIP Support Name Relationship Address Phone [employer] Unavailable [address] + [place] [address] BUCKNERABEL SanchesIL Unavailable [address] + [place] [address] [employer] Unavailable [address] + [place] [address] ABEL BUCKNERIL Unavailable [address] + [place] [address] [employer] Unavailable [address] + [place] [address] BUCKNERRAMANA Sanches Unavailable [address] + [place] [address] [employer] Unavailable [address] + [place] [address] BUCKNERRAMANA Sanches Unavailable [address] + [place] [address] [employer] Unavailable [address] + [place] [address] BUCKNERRAMANA Sanches Unavailable [address] + [place] [address] [employer] Unavailable [address] + [place] [address] [employer] Unavailable [address] + [place] [address] BUCKNERRAMANA Sanches Unavailable [address] + [place] [address] [employer] Unavailable [address] + [place] [address] ABELIL Unavailable [address] + [place] [address] [employer] Unavailable [address] + [place] [address] BUCKNERABEL SanchesIL Unavailable [address] + [place] [address] [employer] Unavailable [address] + [place] [address] BUCKNER, RAMANA Unavailable [address] + [place] [address] [employer] Unavailable [address] + [place] [address] BUCKNER, RAMANA Unavailable [address] + [place] [address] [employer] Unavailable [address] + [place] [address] BUCKNER, RAMANA Unavailable [address] + [place] [address] [employer] Unavailable [address] + [place] [address] BUCKNERABEL SanchesIL Unavailable [address] + [place] [address] Care Team Providers Name Role Phone Primay Care Physicia, No Primary Care Unavailable Marek Whitt Admitting Unavailable Marek Whitt Attending Unavailable MoodisVlad gallardo Consulting Unavailable Marek Whitt Admitting Unavailable Moodispaemmy, Vlad Attending Unavailable Primay Care Physicia, No Primary Care Unavailable Moodispaemmy, Vlad Consulting Unavailable Marek Whitt Consulting Unavailable Marek Whitt Admitting Unavailable Maerk Whitt Attending Unavailable Primay Care Physicia, No Primary Care Unavailable Moodispaemmy, Vlad Consulting Unavailable Marek Whitt Consulting Unavailable Marek Whitt Admitting Unavailable Joanie Whitts Keyona Attending Unavailable Primay Care Physicia, No Primary Care Unavailable Moodispaemmy, Vlad Consulting Unavailable Marek Whitt Consulting Unavailable Marek Whitt Admitting Unavailable Moodispaemmy, Vlad Attending Unavailable Primay Care Physicia, No Primary Care Unavailable Jennifer, Vlad Consulting Unavailable Marek Whitt Consulting Unavailable Marek Whitt Admitting Unavailable Marek Whitt Attending Unavailable Primay Care Physicia, No Primary Care Unavailable MoodVlad moreno Consulting Unavailable Marek Whitt Consulting Unavailable Marek Whitt Admitting Unavailable Moodtiffanie, Vlad Attending Unavailable Primay Care Physicia, No Primary Care Unavailable Moodtiffanie, Vlad Consulting Unavailable Marek Whitt Consulting Unavailable MIKE ROSE Attending Unavailable MIKE ROSE Referring Unavailable Lilly, Rick Primary Care Unavailable MIKE ROSE Attending Unavailable MIKE ROSE Referring Unavailable Lilly, Rick Primary Care Unavailable Botines, Rick Primary Care Unavailable Luis [place] Attending Unavailable Noemi, Moraima Attending Unavailable Noemi, Moraima Attending Unavailable ELIAZAR LUTZ ([facility]) Admitting Unavailable MIKE ROSE Attending Unavailable ORLANDO LOBO Consulting Unavailable JAZLYN GALICIA (JUAN) Attending Unavailable RICK CAMACHO Referring Unavailable JAZLYN GALICIA (JUAN) Attending Unavailable RICK CAMACHO Referring Unavailable JAZLYN GALICIA (JUAN) Referring Unavailable MIKE ROSE Admitting Unavailable MIKE ROSE Attending Unavailable AZIZA VU Consulting Unavailable JAZLYN GALICIA (JUAN) Attending Unavailable RICK CAMACHO Referring Unavailable Danie Elliott Attending Unavailable NONE, XXXX Primary Care Unavailable RICK CAMACHO Attending Unavailable RICK CAMACHO Referring Unavailable RICK CAMACHO Referring Unavailable Jessika ROSE Attending Unavailable MD ELIAZAR LUTZ Admitting Unavailable Rick Camacho MD Primary Care Unavailable Jessika ROSE Consulting Unavailable SHANICE BROOKS Consulting Unavailable IFEOMA CADENA Consulting Unavailable ORLANDO LOBO Consulting Unavailable JAZLYN GALICIA Attending Unavailable Lilly ISRAEL, Rick Referring Unavailable Lilly ISRAEL, Rick Primary Care Unavailable JUAN ORTEGA Attending Unavailable Lilly ISRAEL, Rick Referring Unavailable Lilly ISRAEL, Rick Primary Care Unavailable JAZLYN GALICIA Attending Unavailable Lilly ISRAEL, Rcik Referring Unavailable Lilly ISRAEL, Rick Primary Care Unavailable Jessika ROSE Admitting Unavailable Jessika ROSE Attending Unavailable Lilly ISRAEL, Rick Primary Care Unavailable MARY JO DONOVAN Consulting Unavailable ART MCADAMS Consulting Unavailable AWENDER, H S Consulting Unavailable JAZLYN GALICIA Referring Unavailable Rick Camacho MD Primary Care Unavailable JAZLYN GALICIA Attending Unavailable Rick Camacho MD Referring Unavailable Rick Camacho MD Primary Care Unavailable PROBLEMS PROBLEMS DATE TYPE CONDITION / CODE ATTENDING STATUS SOURCE 05/04/2018 Active Presence of JAZLYN GALICIA Active [place] aortocoronary bypass ([facility]) Clinic Other graft / [place] Z95.1(ICD-10) Repository 05/04/2018 Active Infection following [place] Active [facility] procedure, other [facility] Other surgical site, [place] initial encounter / Repository T81.49XA(ICD-10) 05/04/2018 Admitting Unknown / Jessika ROSE Active [facility] diagnosis UNK(Unknown) [facility] Repository 04/26/2018 Unknown L03.90 - Cellulitis, [place], Active [place] unspecified / [facility] L03.90(ICD-10) Hospital Repository 03/24/2018 Active Acute ischemic heart [place], Active [place] disease, unspecified [facility] Other / I24.9(ICD-10) [place] Repository 03/24/2018 Active Non-ST elevation [place], Active [facility] (NSTEMI) myocardial [facility] Other infarction / [place] I21.4(ICD-10) Repository 03/21/2018 Active Atherosclerotic [place], Active [place] heart disease of [facility] Other [place] coronary [place] artery without Repository angina pectoris / I25.10(ICD-10) 06/10/2017 Active Hyperlipidemia, NA Active [place] unspecified / Clinic Main E78.5(ICD-10) [facility] Repository 06/10/2017 Active Unknown / RICK CAMACHO Active [place] UNK(Unknown) [facility] Main [place] Repository PROCEDURES PROCEDURES No Procedure Records FoundRESULTS RESULTS CNOV Observed: 05/12/2018 Status: COMPLETED Source: [facility] 1:00 PM CLINIC OTHER CAMPUS REPOSITORY Office Visit ([facility]) CARLOS BUCKNER ([id number]) 1960 M Date Time Provider Department 05/12/18 1:00 PM JAZLYN GALICIA During your visit today, we recorded the following information about you: Pulse Respiration Blood pressure Weight 74/minute 16/minute 118/66 99.8 kg Height 1.778 m Jazlyn Galicia APRN.CNP 05/12/2018 3:01 PM Signed HPI: Carlos Buckner is a 57 year old male that returns to the office today for 1 week post-discharge follow up for NSTEMI?s/p CABGX4 (QUIJANO- LAD; SVG-Diag; SVG-OM; SVG-PLB)?performed on 03/28/2018. His post-operative course was complicated by a brief episode of atrial fibrillation which resolved with amiodarone and concomitant respiratory distress which resolved with the atrial fibrillation. He was discharged home with [facility] on 04/05/2018. 04/26, VNS reached out to this office about concern for red leg. A prescription for keflex was provided at that time. He was seen in office on 04/28/2018 for the infection along the left GSV harvest graft. He had greater than 24 hours of abx with worsening erythema, edema and pain at the cellulitis site. The decision was made to direct admit to [facility] for IV antibiotics. He underwent IANDD of the site on 05/05/2018, cultures sent were negative. The wound is packed with mesalt and covered with dry dressing BID. He was discharged home on Keflex 500 Mg QID. Today, Carlos Buckner, reports He is doing well, less pain in the GSV site. Still some redness. Packing the wound BID. Pain: Minimal CV: (Dizzy, palpitations, BP, Edema) None SOB/MARTELL: None Fever: None Diet: Normal Bowel: Regular Activity: Started cardiac rehab C/O: None Cardiology F/U: [facility] at [facility]: started last week Subjective: Current Outpatient Prescriptions: acetaminophen (TYLENOL) 325 mg tablet Take 1-2 tablets by mouth every 6 hours as needed for Fever (Temp >38.5C). aspirin 81 mg chewable tablet Take 1 tablet by mouth once daily. atorvastatin (LIPITOR) 80 mg tablet Take 1 tablet by mouth once daily. blood sugar diagnostic (BLOOD GLUCOSE TEST) test strip Test blood sugar(s) 2x daily. Dx: E11.65. Insulin: No Blood-Glucose Meter monitoring kit Glucose Meter of Choice - Kit - Dx: Type 2 DM - Uncontrolled E11.65 (per insurance) cephALEXin (KEFLEX) 500 mg capsule Take 1 capsule by mouth four times daily for 6 days. clopidogrel (PLAVIX) 75 mg tablet Take 1 tablet by mouth once daily. COMPOUNDED PRESCRIPTION CPAP @ 8 cm of water with humidification. Mask (per patient preference) optional chin strap (if indicated) , filters, tubing, humidifier and lifetime supplies. Dx. TEFOILO 327.23 empagliflozin (JARDIANCE) 25 mg tablet Take 1 tablet by mouth once daily. insulin glargine (LANTUS SOLOSTAR, BASAGLAR KWIKPEN) 100 unit/mL (3 mL) inpn Inject 16 Units subcutaneously every morning. Insulin Greenwald, Disposable, (LITE TOUCH INSULIN PEN NEEDLES) 29 gauge x 1/2 ndle For insulin injections 4 times daily Lancets lancets Test blood sugar(s) 2x daily. Dx: E11.65. Insulin: No lisinopril 2.5 mg tablet Take 1 tablet by mouth once daily. melatonin 3 mg tablet Take 1 tablet by mouth at bedtime as needed (insomnia). metFORMIN (GLUCOPHAGE) 1,000 mg tablet Take 1 tablet by mouth twice daily with meals. metoprolol tartrate, short acting, (LOPRESSOR) 50 mg tablet Take 1 tablet by mouth every 8 hours. cnqcqets-ybo-TQ-lycopen-lutein (MEN 50 PLUS MULTIVITAMIN) 300-600-300 mcg tab Take 1 tablet by mouth once daily. oxyCODONE IR (ROXICODONE) 5 mg immediate release tablet Take 1 tablet by mouth every 6 hours as needed for Pain for up to 7 days.Earliest Fill Date: 05/06/18 polyethylene glycol 3350 (MIRALAX, GLYCOLAX) 17 gram packet Take 1 Packet by mouth once daily. senna-docusate (SENNA-S) 8.6-50 mg per tablet Take 1 tablet by mouth twice daily. No current facility-administered medications for this visit. 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 - Type II or unspecified type diabetes mellitus without mention of complication, not stated as uncontrolled PAST SURGICAL HISTORY Procedure Laterality Date - CABG (4) VEIN GRAFTS AND ARTERIAL GRAFT(S) 03/28/2018 - COLONOSCOP W/ OR W/O [facility] SPEC 01/17/15 Colonoscopy - IANDD ABSC; COMPL OR MULTI Left 05/05/2018 Incision and drainage of left leg saphenous vein harvest site/tunnel approximately 5 cm with incision, drainage, and packing. - KIDNEY SURGERY HX - LITHOTRIPSY PROC UNILATERAL 2006 left side done in [place] - PAST SURGICAL HISTORY OF dog bite age 5 - PAST SURGICAL HISTORY OF chainsaw injury FAMILY HISTORY Problem Relation Age of Onset - other (polio) Mother - Emphysema Father - Diabetes Maternal Grandfather - COPD Paternal Grandmother - COPD Paternal Grandfather Social History Substance Use Topics - Smoking status: Never Smoker - Smokeless tobacco: Never Used - Alcohol use No Review of Systems Constitutional: Negative for chills, fever, malaise/fatigue and weight loss. HENT: Negative for sore throat. Respiratory: Negative for cough, sputum production, shortness of breath and wheezing. Cardiovascular: Negative for chest pain, palpitations, orthopnea, claudication, leg swelling and PND. Gastrointestinal: Negative for abdominal pain, blood in stool, constipation, diarrhea, melena, nausea and vomiting. Genitourinary: Negative for dysuria. Musculoskeletal: Negative for falls and joint pain. Skin: No new lesions Neurological: Negative for dizziness, tingling, sensory change, focal weakness, weakness and headaches. Endo/Heme/Allergies: Does not bruise/bleed easily. Psychiatric/Behavioral: Negative for depression. The patient does not have insomnia. Objective: Physical Examination: Vitals:There were no vitals taken for this visit. Last 2 Encounter Wt Readings: Date: Wt: 04/28/2018 211 lb 13.8 oz (96.1 kg) 04/28/2018 221 lb (100.2 kg) Physical Exam Constitutional: He is oriented to person, place, and time and well-developed, well-nourished, and in no distress. HENT: Head: Normocephalic. Eyes: Pupils are equal, round, and reactive to light. Cardiovascular: Normal rate, regular rhythm, S1 normal, S2 normal and intact distal pulses. No murmur heard. Pulmonary/Chest: Effort normal and breath sounds normal. Abdominal: Soft. Normal appearance and bowel sounds are normal. Musculoskeletal: Normal range of motion. Neurological: He is alert and oriented to person, place, and time. Gait normal. Skin: Skin is warm and intact. Midsternal incision clean dry, well approximated, no redness or drainage - Healed Sternum is Stable Ct Sites Healed SVG site clean dry, no redness, drainage, or hematoma Cellulitis wound dressing changed in office. Wound bed is beefy red, scant serous drainage. 4 cm x 2.5 cm x 1 cm Psychiatric: Mood and affect normal. Assessment and Plan: ASSESSMENT/PLAN: 1. S/P CABG (coronary artery bypass graft) - ICD9: V45.81, ICD10: Z95.1 (primary diagnosis) -Continuing to recover well from CABG. -Continue cardiac rehab 2. Wound cellulitis after surgery - ICD9: 998.59, ICD10: T81.49XA -Wound bed is healing -Finish course of Keflex (approx 4 days remaining) -Continue to pack BID -Continue lantus for now for better BG control -See PCP for DM medication management. 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 Jazlyn Galicia APRN.CNP In summary, Patient is doing Quite well overall after his MCABG surgery, with no major complaints. Patient is released to drive, work. Patient should start cardiac rehab from this point on. 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 He may call with any concerns in the intervening weeks. Electronically signed by Jazlyn Galicia APRN.CNP on May 12, 2018, 9:02 AM Jazlyn Galicia APRN.CNP 05/12/2018 3:01 PM Signed - continue ABX until gone - Monitor for signs of recurrence such as fever, chills, redness or tenderness to the area - Continue to pack two times daily - Return for wound check in 3-4 weeks Referring Provider: RICK CAMACHO [[id number]] Allergies As of Date: 05/12/2018 Noted Allergy Reaction OYSTERS 06/30/2014 2 - Rash 9 - Itching SHELLFISH CONTAINING PRODUCTS 03/19/2018 2 - Rash Date Reviewed: 05/12/2018 Reviewed by: Aileen Fairbanks LPN - Fully Assessed Reason for Visit: Post Op [174] Cmt: 03/28/18 CABG AND 05/05/18 I AND D left leg vein harvest site Primary Visit Diagnosis:S/P CABG (coronary artery bypass graft) [Z95.1] Other Visit Diagnosis:Wound cellulitis after surgery [T81.49XA] Prescriptions as of 05/12/2018 Sig: ACETAMINOPHEN 325 MG TABLET Take 1-2 tablets by mouth carissa* ASPIRIN 81 MG CHEWABLE TABLET Take 1 tablet by mouth once d* ATORVASTATIN 80 MG TABLET Take 1 tablet by mouth once d* BLOOD SUGAR DIAGNOSTIC STRIPS Test blood sugar(s) 2x daily.* BLOOD-GLUCOSE METER KIT Glucose Meter of Choice - Kit* CEPHALEXIN 500 MG CAPSULE Take 1 capsule by mouth four * CLOPIDOGREL 75 MG TABLET Take 1 tablet by mouth once d* COMPOUNDED PRESCRIPTION CPAP @ 8 cm of water with hum* EMPAGLIFLOZIN 25 MG TABLET Take 1 tablet by mouth once d* INSULIN GLARGINE (U-100) 100 * Inject 16 Units subcutaneousl* PEN NEEDLE, DIABETIC 29 GAUGE* For insulin injections 4 time* LANCETS Test blood sugar(s) 2x daily.* LISINOPRIL 2.5 MG TABLET Take 1 tablet by mouth once d* MELATONIN 3 MG TABLET Take 1 tablet by mouth at bed* METFORMIN 1,000 MG TABLET Take 1 tablet by mouth twice * METOPROLOL TARTRATE 50 MG TAB* Take 1 tablet by mouth every * IHSNATWB-LYP-PBERF ACID 300 M* Take 1 tablet by mouth once d* OXYCODONE 5 MG TABLET Take 1 tablet by mouth every * POLYETHYLENE GLYCOL 3350 17 G* Take 1 Packet by mouth once d* SENNOSIDES 8.6 MG-DOCUSATE SO* Take 1 tablet by mouth twice * Problem List As Of Date 05/12/2018 Noted Resolved Diabetes mellitus (HCC) [E11.9] INVALID FOR*06/30/2014 More... Hyperlipemia [E78.5] INVALID FOR* TEOFILO (obstructive sleep apnea) [G47.33] INVALID FOR* More... DM (diabetes mellitus), type 2, uncontrolled (H*INVALID FOR* Erectile dysfunction associated with type 2 amberly*INVALID FOR* Special screening for malignant neoplasms, colo*INVALID FOR*01/17/2015 Hypertriglyceridemia [E78.1] INVALID FOR* HTN (hypertension) [I10] INVALID FOR* Chest pain [R07.9] INVALID FOR* CAD (coronary artery disease) [I25.10] INVALID FOR* More... ACS (acute coronary syndrome) (HCC) [I24.9] INVALID FOR* More... NSTEMI (non-ST elevated myocardial infarction) *INVALID FOR* More... Malnutrition of mild degree (HCC) [E44.1] INVALID FOR*05/02/2018 S/P CABG (coronary artery bypass graft) [Z95.1] INVALID FOR* Wound cellulitis after surgery [T81.49XA] INVALID FOR* Cellulitis, wound, post-operative [T81.49XA] INVALID FOR* More... Other instructions from your clinician: - continue ABX until gone - Monitor for signs of recurrence such as fever, chills, redness or tenderness to the area - Continue to pack two times daily - Return for wound check in 3-4 weeks Disposition: Return in about 1 month (around 06/12/2018) for Wound Check. Follow-up and Disposition History Recorded Encounter Status:Closed by JAZLYN GALICIA CNP on 05/12/18 PROGRESS Observed: 05/12/2018 Status: COMPLETED Source: [place] 9:02 AM [facility] OTHER [place] REPOSITORY [facility] ID: [id number] Author: Jazlyn Galicia Service: (none) Author Type: Nurse Practitioner Type: Progress Notes Filed: 05/12/2018 3:01 PM Note Text: HPI: Carlos Buckner is a 57 year old male that returns to the office today for 1 week post-discharge follow up for NSTEMI?s/p CABGX4 (QUIJANO-LAD; SVG-Diag; SVG-OM; SVG-PLB)?performed on 03/28/2018. His post-operative course was complicated by a brief episode of atrial fibrillation which resolved with amiodarone and concomitant respiratory distress which resolved with the atrial fibrillation. He was discharged home with [facility] on 04/05/2018. 04/26, VNS reached out to this office about concern for red leg. A prescription for keflex was provided at that time. He was seen in office on 04/28/2018 for the infection along the left GSV harvest graft. He had greater than 24 hours of abx with worsening erythema, edema and pain at the cellulitis site. The decision was made to direct admit to [facility] for IV antibiotics. He underwent IANDD of the site on 05/05/2018, cultures sent were negative. The wound is packed with mesalt and covered with dry dressing BID. He was discharged home on Keflex 500 Mg QID. Today, Carlos Buckner, reports He is doing well, less pain in the GSV site. Still some redness. Packing the wound BID. Pain: Minimal CV: (Dizzy, palpitations, BP, Edema) None SOB/MARTELL: None Fever: None Diet: Normal Bowel: Regular Activity: Started cardiac rehab C/O: None Cardiology F/U: [facility] at [facility] [place] [facility]: started last week Subjective: Current Outpatient Prescriptions: acetaminophen (TYLENOL) 325 mg tablet Take 1-2 tablets by mouth every 6 hours as needed for Fever (Temp >38.5C). aspirin 81 mg chewable tablet Take 1 tablet by mouth once daily. atorvastatin (LIPITOR) 80 mg tablet Take 1 tablet by mouth once daily. blood sugar diagnostic (BLOOD GLUCOSE TEST) test strip Test blood sugar(s) 2x daily. Dx: E11.65. Insulin: No Blood-Glucose Meter monitoring kit Glucose Meter of Choice - Kit - Dx: Type 2 DM - Uncontrolled E11.65 (per insurance) cephALEXin (KEFLEX) 500 mg capsule Take 1 capsule by mouth four times daily for 6 days. clopidogrel (PLAVIX) 75 mg tablet Take 1 tablet by mouth once daily. COMPOUNDED PRESCRIPTION CPAP @ 8 cm of water with humidification. Mask (per patient preference) optional chin strap (if indicated) , filters, tubing, humidifier and lifetime supplies. Dx. TEOFILO 327.23 empagliflozin (JARDIANCE) 25 mg tablet Take 1 tablet by mouth once daily. insulin glargine (LANTUS SOLOSTAR, BASAGLAR KWIKPEN) 100 unit/mL (3 mL) inpn Inject 16 Units subcutaneously every morning. Insulin Greenwald, Disposable, (LITE TOUCH INSULIN PEN NEEDLES) 29 gauge x 1/2 ndle For insulin injections 4 times daily Lancets lancets Test blood sugar(s) 2x daily. Dx: E11.65. Insulin: No lisinopril 2.5 mg tablet Take 1 tablet by mouth once daily. melatonin 3 mg tablet Take 1 tablet by mouth at bedtime as needed (insomnia). metFORMIN (GLUCOPHAGE) 1,000 mg tablet Take 1 tablet by mouth twice daily with meals. metoprolol tartrate, short acting, (LOPRESSOR) 50 mg tablet Take 1 tablet by mouth every 8 hours. ysedzawz-hqe-VT-lycopen-lutein (MEN 50 PLUS MULTIVITAMIN) 300-600-300 mcg tab Take 1 tablet by mouth once daily. oxyCODONE IR (ROXICODONE) 5 mg immediate release tablet Take 1 tablet by mouth every 6 hours as needed for Pain for up to 7 days.Earliest Fill Date: 05/06/18 polyethylene glycol 3350 (MIRALAX, GLYCOLAX) 17 gram packet Take 1 Packet by mouth once daily. senna-docusate (SENNA-S) 8.6-50 mg per tablet Take 1 tablet by mouth twice daily. No current facility-administered medications for this visit. 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 - Type II or unspecified type diabetes mellitus without mention of complication, not stated as uncontrolled PAST SURGICAL HISTORY Procedure Laterality Date - CABG (4) VEIN GRAFTS AND ARTERIAL GRAFT(S) 03/28/2018 - COLONOSCOP W/ OR W/O [facility] SPEC 01/17/15 Colonoscopy - IANDD ABSC; COMPL OR MULTI Left 05/05/2018 Incision and drainage of left leg saphenous vein harvest site/tunnel approximately 5 cm with incision, drainage, and packing. - KIDNEY SURGERY HX - LITHOTRIPSY PROC UNILATERAL 2006 left side done in [place] - PAST SURGICAL HISTORY OF dog bite age 5 - PAST SURGICAL HISTORY OF chainsaw injury FAMILY HISTORY Problem Relation Age of Onset - other (polio) Mother - Emphysema Father - Diabetes Maternal Grandfather - COPD Paternal Grandmother - COPD Paternal Grandfather Social History Substance Use Topics - Smoking status: Never Smoker - Smokeless tobacco: Never Used - Alcohol use No Review of Systems Constitutional: Negative for chills, fever, malaise/fatigue and weight loss. HENT: Negative for sore throat. Respiratory: Negative for cough, sputum production, shortness of breath and wheezing. Cardiovascular: Negative for chest pain, palpitations, orthopnea, claudication, leg swelling and PND. Gastrointestinal: Negative for abdominal pain, blood in stool, constipation, diarrhea, melena, nausea and vomiting. Genitourinary: Negative for dysuria. Musculoskeletal: Negative for falls and joint pain. Skin: No new lesions Neurological: Negative for dizziness, tingling, sensory change, focal weakness, weakness and headaches. Endo/Heme/Allergies: Does not bruise/bleed easily. Psychiatric/Behavioral: Negative for depression. The patient does not have insomnia. Objective: Physical Examination: Vitals:There were no vitals taken for this visit. Last 2 Encounter Wt Readings: Date: Wt: 04/28/2018 211 lb 13.8 oz (96.1 kg) 04/28/2018 221 lb (100.2 kg) Physical Exam Constitutional: He is oriented to person, place, and time and well-developed, well-nourished, and in no distress. HENT: Head: Normocephalic. Eyes: Pupils are equal, round, and reactive to light. Cardiovascular: Normal rate, regular rhythm, S1 normal, S2 normal and intact distal pulses. No murmur heard. Pulmonary/Chest: Effort normal and breath sounds normal. Abdominal: Soft. Normal appearance and bowel sounds are normal. Musculoskeletal: Normal range of motion. Neurological: He is alert and oriented to person, place, and time. Gait normal. Skin: Skin is warm and intact. Midsternal incision clean dry, well approximated, no redness or drainage - Healed Sternum is Stable Ct Sites Healed SVG site clean dry, no redness, drainage, or hematoma Cellulitis wound dressing changed in office. Wound bed is beefy red, scant serous drainage. 4 cm x 2.5 cm x 1 cm Psychiatric: Mood and affect normal. Assessment and Plan: ASSESSMENT/PLAN: 1. S/P CABG (coronary artery bypass graft) - ICD9: V45.81, ICD10: Z95.1 (primary diagnosis) -Continuing to recover well from CABG. -Continue cardiac rehab 2. Wound cellulitis after surgery - ICD9: 998.59, ICD10: T81.49XA -Wound bed is healing -Finish course of Keflex (approx 4 days remaining) -Continue to pack BID -Continue lantus for now for better BG control -See PCP for DM medication management. 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 Jazlyn Galicia APRN.CNP In summary, Patient is doing Quite well overall after his MCABG surgery, with no major complaints. Patient is released to drive, work. Patient should start cardiac rehab from this point on. 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 He may call with any concerns in the intervening weeks. Electronically signed by Jazlyn Galicia APRN.CNP on May 12, 2018, 9:02 AM ALLIED HEALTH Observed: 05/06/2018 Status: COMPLETED Source: [place] 1:08 PM [facility] REPOSITORY HNO ID: [id number] Author: Coco MadisonRn) KENYETTA Wesley Service: Home Care Services Author Type: Registered Nurse Type: Allied Health Filed: 05/06/2018 1:09 PM Note Text: ELECTRONIC BENCH TECHNICIAN NOTE SERVICE DATE: 05/06/2018 SERVICE TIME: 1:08 PM Discharge: Aware of Discharge home today. Physician order placed for Home Care Services. Home Care Agency: to resume care w/[facility] Start of care date: 05/07/18--05/08/18 Supplies ordered: supplies sent with pt. Patient/Family agree to discharge plan: Yes SIGNATURE: Coco Wesley RN PATIENT NAME: Carlos Buckner DATE: May 06, 2018 TIME: 1:08 PM PLAN OF CARE Observed: 05/06/2018 Status: COMPLETED Source: [place] 12:41 PM [facility] REPOSITORY HNO ID: [id number] Author: Ivon Gordon (Bulk Plant Agent) Service: (none) Author Type: (none) Type: Plan of Care Filed: 05/06/2018 12:42 PM Note Text: PHARMACY BEDSIDE DELIVERY SERVICE Patient Name: Carlos Buckner The marked outpatient medications were Filled at: [place] and delivered to the patient's bedside to PATIENT, KENYETTA TRACEY NOTIFIED Medication List START taking these medications cephALEXin 500 mg capsule Commonly known as: KEFLEX Take 1 capsule by mouth four times daily for 6 days. oxyCODONE IR 5 mg immediate release tablet Commonly known as: ROXICODONE Take 1 tablet by mouth every 6 hours as needed for Pain for up to 7 days. Earliest Fill Date: 05/06/18 CONTINUE taking these medications acetaminophen 325 mg tablet Commonly known as: TYLENOL Take 1-2 tablets by mouth every 6 hours as needed for Fever (Temp >38.5C). aspirin 81 mg chewable tablet Take 1 tablet by mouth once daily. atorvastatin 80 mg tablet Commonly known as: LIPITOR Take 1 tablet by mouth once daily. blood sugar diagnostic test strip Commonly known as: BLOOD GLUCOSE TEST Test blood sugar(s) 2x daily. Dx: E11.65. Insulin: No Blood-Glucose Meter monitoring kit Glucose Meter of Choice - Kit - Dx: Type 2 DM - Uncontrolled E11.65 (per insurance) clopidogrel 75 mg tablet Commonly known as: PLAVIX Take 1 tablet by mouth once daily. COMPOUNDED PRESCRIPTION CPAP @ 8 cm of water with humidification. Mask (per patient preference) optional chin strap (if indicated) , filters, tubing, humidifier and lifetime supplies. Dx. TEOFILO 327.23 empagliflozin 25 mg tablet Commonly known as: JARDIANCE Take 1 tablet by mouth once daily. insulin glargine 100 unit/mL (3 mL) Inpn Commonly known as: LANTUS SOLOSTAR BASAGLAR AIDA Inject 16 Units subcutaneously every morning. Insulin Greenwald (Disposable) 29 gauge x 1/2 Ndle Commonly known as: LITE TOUCH INSULIN PEN NEEDLES For insulin injections 4 times daily Lancets lancets Test blood sugar(s) 2x daily. Dx: E11.65. Insulin: No lisinopril 2.5 mg tablet Take 1 tablet by mouth once daily. melatonin 3 mg tablet Take 1 tablet by mouth at bedtime as needed (insomnia). MEN 50 PLUS MULTIVITAMIN 300-600-300 mcg Tab Generic drug: kbzrtkoe-daj-WD-lycopen-lutein metFORMIN 1,000 mg tablet Commonly known as: GLUCOPHAGE Take 1 tablet by mouth twice daily with meals. metoprolol tartrate (short acting) 50 mg tablet Commonly known as: LOPRESSOR Take 1 tablet by mouth every 8 hours. polyethylene glycol 3350 17 gram packet Commonly known as: MIRALAX, GLYCOLAX Take 1 Packet by mouth once daily. senna-docusate 8.6-50 mg per tablet Commonly known as: SENNA-S Take 1 tablet by mouth twice daily. You might also be taking other medications not listed above. If you have questions about any of your other medications, talk to the person who prescribed them or your Primary Care Provider. STOP taking these medications bisacodyl 10 mg Supp Commonly known as: DULCOLAX ciprofloxacin HCl 500 mg tablet Commonly known as: CIPRO insulin lispro 100 unit/mL Inpn Commonly known as: HumaLOG AIDA Gordon (Bulk Plant Agent) PHONE:extension [phone] or [phone] May 06, 2018 12:42 PM PLAN OF CARE Observed: 05/06/2018 Status: COMPLETED Source: [place] 12:34 PM CLINIC OTHER CAMPUS REPOSITORY O ID: [id number] Author: Onofre Nichols (Pharmacist) Service: Pharmacy Author Type: Pharmacist Type: Plan of Care Filed: 05/06/2018 12:40 PM Note Text: DISCHARGE MEDICATION REVIEW AND COUNSELING BY PHARMACY Patient Name: Carlos Buckner Account #: Data Unavailable Admission Date: 04/28/2018 Date of Contact: May 06, 2018 Time of Contact: 12:34 PM LEARNERS Persons Present: Patient Primary Learner: Patient Medication list was reviewed by a Pharmacist for drug interactions or drug related problems:Yes The patient was counseled on the medication(s) listed below and was given the opportunity to ask questions regarding indication, dosage, side effects and drug interactions READINESS TO LEARN COGNITIVE ABILITY:Alert and oriented MOTIVATION TO LEARN:Eager Interested FAMILY SUPPORT:Unable to assess - Family not present INSTRUCTION PROVIDED TO:Patient PATIENT LEARNS BEST BY:Individual Instruction Written Instruction - Hand-outs Verbal Instruction FACTORS AFFECTING LEARNING:None PHYSICAL LIMITATIONS AFFECTING LEARNING:None LEARNING RESPONSE PATIENT / FAMILY RESPONSE:Verbalizes understanding of: Accurate knowledge of prescribed medication prior to discharge. The correct action to take if medication dose is missed. The side effects associated with the medication that warrant a call to the physician. ONOFRE NICHOLS, PHARMACIST May 06, 2018 12:34 PM Medication List START taking these medications cephALEXin 500 mg capsule Commonly known as: KEFLEX Take 1 capsule by mouth four times daily for 6 days. oxyCODONE IR 5 mg immediate release tablet Commonly known as: ROXICODONE Take 1 tablet by mouth every 6 hours as needed for Pain for up to 7 days. Earliest Fill Date: 05/06/18 CONTINUE taking these medications acetaminophen 325 mg tablet Commonly known as: TYLENOL Take 1-2 tablets by mouth every 6 hours as needed for Fever (Temp >38.5C). aspirin 81 mg chewable tablet Take 1 tablet by mouth once daily. atorvastatin 80 mg tablet Commonly known as: LIPITOR Take 1 tablet by mouth once daily. blood sugar diagnostic test strip Commonly known as: BLOOD GLUCOSE TEST Test blood sugar(s) 2x daily. Dx: E11.65. Insulin: No Blood-Glucose Meter monitoring kit Glucose Meter of Choice - Kit - Dx: Type 2 DM - Uncontrolled E11.65 (per insurance) clopidogrel 75 mg tablet Commonly known as: PLAVIX Take 1 tablet by mouth once daily. COMPOUNDED PRESCRIPTION CPAP @ 8 cm of water with humidification. Mask (per patient preference) optional chin strap (if indicated) , filters, tubing, humidifier and lifetime supplies. Dx. TEOFILO 327.23 empagliflozin 25 mg tablet Commonly known as: JARDIANCE Take 1 tablet by mouth once daily. insulin glargine 100 unit/mL (3 mL) Inpn Commonly known as: LANTUS SOLOSTAR BASAGLAR KWMARIKA Inject 16 Units subcutaneously every morning. Insulin Greenwald (Disposable) 29 gauge x 1/2 Ndle Commonly known as: LITE TOUCH INSULIN PEN NEEDLES For insulin injections 4 times daily Lancets lancets Test blood sugar(s) 2x daily. Dx: E11.65. Insulin: No lisinopril 2.5 mg tablet Take 1 tablet by mouth once daily. melatonin 3 mg tablet Take 1 tablet by mouth at bedtime as needed (insomnia). MEN 50 PLUS MULTIVITAMIN 300-600-300 mcg Tab Generic drug: tugduyba-tvp-ND-lycopen-lutein metFORMIN 1,000 mg tablet Commonly known as: GLUCOPHAGE Take 1 tablet by mouth twice daily with meals. metoprolol tartrate (short acting) 50 mg tablet Commonly known as: LOPRESSOR Take 1 tablet by mouth every 8 hours. polyethylene glycol 3350 17 gram packet Commonly known as: MIRALAX, GLYCOLAX Take 1 Packet by mouth once daily. senna-docusate 8.6-50 mg per tablet Commonly known as: SENNA-S Take 1 tablet by mouth twice daily. STOP taking these medications bisacodyl 10 mg Supp Commonly known as: DULCOLAX ciprofloxacin HCl 500 mg tablet Commonly known as: CIPRO insulin lispro 100 unit/mL Inpn Commonly known as: HumaLOG KWIKPEN Where to Get Your Medications Information about where to get these medications is not yet available Ask your nurse or doctor about these medications ? cephALEXin 500 mg capsule ? oxyCODONE IR 5 mg immediate release tablet PLAN OF CARE Observed: 05/06/2018 Status: COMPLETED Source: [place] 11:47 AM [facility] OTHER CAMPUS REPOSITORY HNO ID: [id number] Author: Beatrice Pemberton (Pharmacist) Service: Pharmacy Author Type: Pharmacist Type: Plan of Care Filed: 05/06/2018 11:49 AM Note Text: PHARMACY DISCHARGE MEDICATION COUNSELING PATIENT NAME: Carlos Buckner DATE of SERVICE: 05/06/18 TIME of SERVICE: 1100 The patient accepted medication counseling for the discharge medications below. The patient was given the opportunity to ask questions regarding medication indication, interactions and side effects. Discharge Medications: Oxycodone Patient verbalizes understanding of counseling. Signature: SUNDAY NAVARRO Date: May 06, 2018 Time: 11:48 AM GLUCOSE METER Collected: 05/06/2018 Status: F Source: [facility] 11:45 AM HEALTH SYSTEM REPOSITORY TYPE CODE TESTS RESULT OUT OF REFERENCE UNITS RANGE LAB GLUBL(LOINC 70-99 mg/dL ) High Glucose Meter 139 Result Comment: RN NOTIFIED Performed By: #### GLMET #### [place] [id number] PLAN OF CARE Observed: 05/06/2018 Status: COMPLETED Source: [place] 11:14 AM [facility] REPOSITORY HNO ID: [id number] Author: Rosa [employer]) Service: (none) Author Type: (none) Type: Plan of Care Filed: 05/06/2018 11:15 AM Note Text: Pharmacy Discharge Medication Service: This patient has elected to receive their discharge prescriptions through the [facility] Bedside Prescription Delivery program. The prescriptions are currently being processed. A follow-up note will be entered once the prescriptions have been filled and delivered to the patient. Please contact me with any questions or updates to the patient's discharge medications. 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 Patient to use [facility] Bedside Delivery - YES 2. If fax, patient would like us to fax prescriptions to Pharmacy of choice a. Pharmacy: b. Location: c. Phone: 3. Insurance card on file - YES 4. Credit card for payment - N/A Oxycodone 5mg Rosa Sim, Pharmacy [id number] CNDS Observed: 05/06/2018 Status: COMPLETED Source: [place] 9:55 AM [facility] OTHER CAMPUS REPOSITORY HNO ID: [id number] Author: Mike Rose Service: Cardiac Surgery Author Type: Physician Type: Discharge Summaries Filed: 05/06/2018 6:29 PM Note Text: DISCHARGE SUMMARY PATIENT NAME: Carlos Buckner Code Status: Not on file Highest Readmission Risk Score: 19 The 30 day readmissions risk score is derived from an internally validated risk model which evaluates patient level characteristics, utilization history, medication orders and lab results up until the day of discharge. Patients with a score of 40 or above are considered highest risk for readmission. Specific patient level drivers will be listed at the bottom of the summary. Admission Information Admission Information ADMIT DATE: 04/28/2018 DISCHARGE DATE: 05/06/2018 MY DOCTORS AND MEDICAL TEAM: My Main [facility] Doctor: Mike Rose Primary Care Provider: Rick Camacho MD My Medical Team Members: Treatment Team: Attending Provider: Mike Rose Consulting: Art Mcadams MY CONDITION AT DISCHARGE: Stable REASON I WAS IN THE HOSPITAL: Left leg cellulitis along the vein harvest tract SUMMARY OF WHAT HAPPENED WHILE I WAS IN THE HOSPITAL: 03/28/2018: S/P CABG x4 (QUIJANO-LAD; SVG-Diag; SVG-OM; SVG-PLB; Left EVH) 04/28/2018 Readmit for cellulitis of the left leg with failed oral antibiotic treatment. Started on IV Ancef, wound lanced and culture sent (negative). 05/05/2018: Wound Incision and drainage, culture no growth at 1 day. Wound care: Pack with mesalt and cover with dry dressing 2x daily Antibiotic: Resume Keflex 4 times daily until 05/12/2018 OTHER PROBLEMS/DIAGNOSIS: Cellulitis after surgery POA: Yes -exam the LLL, reduced redness -Resume Kelfex 500 mg QID at discharge until 05/12/2018 -ID on consult - Not likely associated with GSV incisions per ID -Seroma hematoma at medial knee site - low suspicion for infection. -U/S for fluid collection at site of cellulitis -Reveals complex fluid collection ? -no growth from specimen sent 05/03 -S/P IANDD of LE cellulitis with no growth -Per ID note resume Keflex 500 mg QID at D/C through 05/12/2018 ? NSTEMI S/P CABG x 4 -c/w current med: ASA, BB, STATIN -walk -CXR reviewed, stable ? PAF -NSR ? DM - Resume home Oral and lantus regimen, stop prandial insulins DISPO: Home with home health care today OPERATIONS PERFORMED WHILE IN THE HOSPITAL: INCISION AND DRAINAGE POSTOPERATIVE WOUND COMPLEX (Left) IMPORTANT TEST/PROCEDURES: No procedures performed TEST RESULTS NOT AVAILABLE AT THIS TIME: No pending results Discharge Disposition Discharge Disposition: Home With Home Care Activity When You Leave the Hospital Lifting is restricted to: Less than [address] May use stairs No walking restrictions Shower and wash incisions daily. No tub bath. Diet Instructions Diabetic Heart Healthy Fluid restriction 2 liters per day. For Pain When You Leave the Hospital You should use an kmaw-yvv-undzkgq stool softener (Docusate sodium) and/or a fiber supplement (Metamucil, Fiber Con) every day while taking prescribed pain medication Wound/Surgical Site Care Wash your hands frequently, especially before touching your incision, after using restroom and before eating Wound/Surgical Site care Pack with mesalt and cover with dry dressing 2 times daily. VNS wound care to assess and make further wound care recommendations. Your incision has skin glue. It will peel off on its own. It can get wet Call Your Doctor If Other: Shortness of breath, chest pain, weight gain, swelling of legs There is an unusual odor from the wound area There is severe pain at the operative site You have lightheadedness, fainting, or confusion You have redness, swelling, pus or drainage from the wound Your temperature is greater than 101F Follow Up Appointments Follow-Up Appointment With: Cardiology When: In 6 weeks Patient/Parents to call for appointment?: Yes Call [phone] to schedule. Follow-Up Appointment [address], [place], [place] [id number] Enter thru [facility] and take the silver elevator to the 3rd floor. The office is immediately on the right. When: In 1 week Patient/Parents to call for appointment?: Scheduled Jazlyn Galicia [phone] COUNTS INCLUDE [address] BED[address] AT THE [facility] [address] PCP Requested Referral Additional Provider to Provider Information: N/A Transitions of Care Critical Issues: N/A LABS AND PROCEDURES PENDING AT DISCHARGE: Culture Results (from IANDD) FOLLOW-UP APPOINTMENTS ALREADY SCHEDULED WITH A [facility] PROVIDER: Future Appointments Date Time Provider Department Center 05/12/2018 1:00 PM Jazlyn Galicia [facility] ALLERGIES Allergen Reactions - Oysters Rash, Itching - Shellfish Containin* Rash DISCHARGE MEDICATION: Current Discharge Medication List START taking these medications oxyCODONE IR (ROXICODONE) 5 mg Take 5 mg by mouth every 6 hours as needed for Pain. Earliest Fill Date: 05/06/18 Qty: 28 tablet Refills: 0 Associated Diagnoses:Cellulitis, wound, post-operative; S/P CABG (coronary artery bypass graft) cephALEXin (KEFLEX) 500 mg Take 500 mg by mouth four times daily. Qty: 24 capsule Refills: 0 CONTINUE these medications which have NOT CHANGED lisinopril 2.5 mg Take 2.5 mg by mouth once daily. Qty: 30 tablet Refills: 2 Associated Diagnoses:S/P CABG (coronary artery bypass graft); Essential hypertension atorvastatin (LIPITOR) 80 mg Take 80 mg by mouth once daily. Qty: 90 tablet Refills: 1 Associated Diagnoses:Hyperlipidemia, unspecified hyperlipidemia type; Hypertriglyceridemia acetaminophen (TYLENOL) 325-650 mg Take 325-650 mg by mouth every 6 hours as needed for Fever (Temp >38.5C). aspirin 81 mg Take 81 mg by mouth once daily. clopidogrel (PLAVIX) 75 mg Take 75 mg by mouth once daily. Qty: 30 tablet Refills: 5 melatonin 3 mg Take 3 mg by mouth at bedtime as needed (insomnia). metoprolol tartrate (short acting) (LOPRESSOR) 50 mg Take 50 mg by mouth every 8 hours. Qty: 90 tablet Refills: 2 polyethylene glycol 3350 (MIRALAX, GLYCOLAX) 17 g Take 17 g by mouth once daily. senna-docusate (SENNA-S) 1 tablet Take 1 tablet by mouth twice daily. insulin glargine (LANTUS SOLOSTAR, BASAGLAR KWIKPEN) 16 Units Inject 16 Units subcutaneously every morning. Qty: 15 mL Refills: 3 Insulin Greenwald, Disposable, (LITE TOUCH INSULIN PEN NEEDLES) 29 gauge x 1/2 ndle For insulin injections 4 times daily Qty: 100 Each Refills: 3 biljnhsu-clg-XF-lycopen-lutein 1 tablet Take 1 tablet by mouth once daily. empagliflozin (JARDIANCE) 25 mg Take 25 mg by mouth once daily. Qty: 90 tablet Refills: 3 blood sugar diagnostic (BLOOD GLUCOSE TEST) test strip Test blood sugar(s) 2x daily. Dx: E11.65. Insulin: No Qty: 100 Strip Refills: 11 Associated Diagnoses:Uncontrolled type 2 diabetes mellitus with complication, unspecified custodial insulin use status (HCC) metFORMIN (GLUCOPHAGE) 1,000 mg Take 1,000 mg by mouth twice daily with meals. 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 Dx: E11.65. 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 Mask (per patient preference) optional chin strap (if indicated) , filters, tubing, humidifier and lifetime supplies. Dx. TEOFILO 327.23 Qty: 1 Device Refills: 0 Associated Diagnoses:TEOFILO (obstructive sleep apnea) STOP taking these medications ciprofloxacin HCl (CIPRO) 500 mg Comments: Reason for Stopping: bisacodyl (DULCOLAX) 10 mg Comments: Reason for Stopping: insulin lispro (HumaLOG KWIKPEN) 6 Units Comments: Reason for Stopping: Discharge Physical Exam: VITAL SIGNS: BP 108/63 Pulse 76 Temp 36.8 ?C (98.2 ?F) (Temporal Artery) Resp 17 Ht 177.8 cm (5' 10) Wt 96.1 kg (211 lb 13.8 oz) SpO2 97% BMI 30.40 kg/m? GENERAL: Alert, no distress, cooperative SKIN: Skin color, texture, turgor normal. No rashes or lesions. LUNGS: Lungs clear to auscultation, Good diaphragmatic excursion CARDIAC: Normal S1 and S2; no rubs, murmurs, or gallops ABDOMEN: Abdomen soft, non-tender, BS normal, No masses or organomegaly EXTREMITIES: Extremities normal, no deformities, edema, clubbing or skin discoloration. Good capillary refill., No ulcers NEURO: Grossly normal cognition, motor function, and cranial nerves III-XII, Gait normal. Reflexes normal and symmetric. Sensation grossly intact PULSES: 2+ radial, 2+ dorsalis pedis WOUND: Clean, dry and intact, packed with mesalt and covered with dry sterile dressing The remainder of the physical exam is noncontributory. The patient's risk for 30-day readmission is determined using the following contributing factors: Pt variables contributing to increased readmission risk: 22 Active Medication Orders 21 Most Recent BUN Result 9.1 First Resulted Calcium During Admission 1 Insurance - Medicaid 1 Discharge Disposition - Home 1 Active Anticoagulant 1 Number of Hospitalizations (12 mos.) TIME OF CARE: Discharge Management: I personally spent greater than 30 minutes involved in the discharge management of this patient. SIGNATURE: Jazlyn Galicia APRN.WOODWORKING BENCH CARPENTER PAGER/CONTACT #: [phone] DATE: May 06, 2018 TIME: 9:55 AM Patient seen this afternoon and discharge as discussed. PROGRESS Observed: 05/06/2018 Status: COMPLETED Source: [place] 9:09 AM CLINIC OTHER CAMPUS REPOSITORY HNO ID: [id number] Author: Nell Davey Service: Infectious Disease Author Type: Physician Type: Progress Notes Filed: 05/06/2018 9:12 AM Note Text: INFECTIOUS DISEASE PROGRESS NOTE Patient Name: Carlos Buckner ASSESSMENT: ?1. Left LE Non- purulent Cellulitis around SVG site, s/p IANDD cx neg to date 2. S/P CABG 03/28 with Left LE SVG sites 3. Fever resolved 4. Failed Management Oral ATB 5. DM Type II 6. Ac on Chronic Anemia 7.Thigh fluid collection, clinically low suspicion of infection at this time, post op. Monitor ? RECOMMENDATIONS: Continue Ancef Follow cx If cultures remain negative plan for oral Keflex 500mg QID at discharge to treat till 05/12/18 Keep Elevated Follow CBC/ Temps INTERVAL HISTORY: Afebrile, Underwent Incision, drainage and packing left leg saphenous vein harvest site/tunnel. Intraop necrotic fat and no pus, cx so far with no growth MEDICATIONS: reviewed. Current hospital medications: oxyCODONE IR 5-10 mg tab(s) (ROXICODONE) 5-10 mg ORAL q 4 H PRN insulin glargine 16 Units pen (long acting) (LANTUS SOLOSTAR, BASAGLAR KWIKPEN) 16 Units SUBCUTANEOUS DAILY (8 AM) clopidogrel 75 mg tab(s) (PLAVIX) 75 mg ORAL DAILY metoprolol tartrate (short acting) 25 mg tab(s) (LOPRESSOR) 25 mg ORAL q 8 H ceFAZolin iv piggyback 1 g in D5W (iso-osmotic) 50 mL (ANCEF) 1 g INTRAVENOUS q 8 H acetaminophen 325-650 mg tab(s) (TYLENOL) 325-650 mg ORAL q 6 H PRN empagliflozin 25 mg tab(s) (JARDIANCE) 25 mg ORAL DAILY metFORMIN 1,000 mg tab(s) (GLUCOPHAGE) 1,000 mg ORAL BID w MEALS atorvastatin 80 mg tab(s) (LIPITOR) 80 mg ORAL DAILY lisinopril 2.5 mg tab(s) 2.5 mg ORAL DAILY polyethylene glycol 3350 17 g packet (MIRALAX, GLYCOLAX) 17 g ORAL DAILY senna-docusate 8.6-50 mg 1 tablet (SENNA-S) 1 tablet ORAL BID bisacodyl 10 mg suppository (DULCOLAX) 10 mg RECTAL DAILY PRN melatonin 3 mg tab(s) 3 mg ORAL HS PRN aspirin 81 mg chewable tab(s) 81 mg ORAL DAILY therapeutic multivitamin with iron (THERAGRAN-M) 1 tablet ORAL DAILY heparin 5,000 Units injection 5,000 Units SUBCUTANEOUS q 12 H NaCl 0.9% 3-5 mL 3-5 mL INTRAVENOUS q 12 H oxyCODONE-acetaminophen 5-325 mg 1-2 tablet (PERCOCET) 1-2 tablet ORAL q 4 H PRN dextrose 40 % 15 g 15 g ORAL PRN glucagon 1 mg injection (GLUCAGEN) 1 mg INTRAMUSCULAR PRN dextrose 50% in water 25 mL syringe 12.5 g INTRAVENOUS PRN PHYSICAL EXAM: Vital signs: BP (!) 90/45 Pulse 69 Temp 37 ?C (98.6 ?F) (Oral) Resp 16 Ht 177.8 cm (5' 10) Wt 96.1 kg (211 lb 13.8 oz) SpO2 95% BMI 30.40 kg/m? Temp (24hrs), Av.8 ?C (98.2 ?F), Min:36.6 ?C (97.9 ?F), Max:37 ?C (98.6 ?F) GEN: Alert, pleasant, NAD HEENT: PERRL, moist oral mucosa, neck supple PULM: CTA bilateral, no rhonchi/wheezes. CV: RRR- midline sternal incision c/d/i GI: soft, non distended, non tender, BSx4 : no weaver, no CVAT EXT: Left lower extremity post op dressing intact Reviewed images taken by patient SKIN: no rash NEURO: no focal deficits, Alert and oriented x3 LINES: PIV sites clean Lab data: reviewed Recent Labs 05/05/18 0520 WBC 4.39 HB 10.6* PLT 339 NA 138 K 4.0 CO2 25 BUN 21* CREAT 0.85 Microbiology data: reviewed 04/30 Blood Cx: ngtd MRSA nares neg. Imaging data: reviewed Thank you for the consult. We will continue to follow the patient with you. Please call for any questions or concerns. Nell Davey MD NUTRITION Observed: 05/06/2018 Status: COMPLETED Source: [facility] 8:55 AM CLINIC OTHER CAMPUS REPOSITORY HNO ID: [id number] Author: Arielle Stephenson) [place] Man Service: Nutrition Therapy Author Type: Registered Dietitian Type: Nutrition Filed: 05/06/2018 12:54 PM Note Text: NUTRITION THERAPY SCREENING NOTE SERVICE DATE: 05/06/2018 SERVICE TIME: 11:15 NUTRITION CARE PLAN Intervention: 1. Encouraged CHO-controlled, heart-healthy diet Discharge Nutrition Recommendations: Diet: Heart healthy, CHO-controlled Reason for Visit: Follow-up Per HPI: Mr. Gonzalez is a 57 yo patient with PMH of NSTEMI s/p CABG X4 (QUIJANO-LAD; SVG-Diag; SVG-OM; SVG-PLB) on 03/28/[address] Rose, who returned to CTS office for left leg cellulitis evaluation on 04/28 after initial treatment with Keflex three days prior, patient was able to take a bout 3 doses prior to the visit. He reported with worsening on his cellulitis. 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 Rose decided patient is needed to be admitted to Inpatient with IV ABX management given impression of patient did not respond to the initial PO ABX in the setting of DM. Of note, his post-op recovery was complicated by respiratory distress and a brief episode of PAF resolved with PO amiodarone. He was discharged to home on POD 04/05/2018. ACTIVE PROBLEM LIST Hyperlipemia Teofilo (Obstructive Sleep Apnea) Dm (Diabetes Mellitus), Type 2, Uncontrolled ([facility]) Erectile Dysfunction Associated With Type 2 Diabetes Mellitus ([facility]) Hypertriglyceridemia Htn (Hypertension) Chest Pain Cad (Coronary Artery Disease) Acs (Acute Coronary Syndrome) ([facility]) Nstemi (Non-St Elevated Myocardial Infarction) ([facility]) S/P Cabg (Coronary Artery Bypass Graft) Wound Cellulitis After Surgery Cellulitis, Wound, Post-Operative 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/28/2018 - Type II or unspecified type diabetes mellitus without mention of complication, not stated as uncontrolled PAST SURGICAL HISTORY Procedure Laterality Date - CABG (4) VEIN GRAFTS AND ARTERIAL GRAFT(S) 03/28/2018 - COLONOSCOP W/ OR W/O [facility] SPEC 01/17/15 Colonoscopy - KIDNEY SURGERY HX - LITHOTRIPSY PROC UNILATERAL 2006 left side done in [place] - PAST SURGICAL HISTORY OF dog bite age 5 - PAST SURGICAL HISTORY OF chainsaw injury Interval History: ID following for LLE cellulitis. General surgery consulted for LLE abscess/cellulitis, s/p bedside aspiration. S/P IANDD and packing of L leg 05/05. Current Diet Order DIET CARBOHYDRATE CONTROLLED Order Specific Question: Carbohydrate Control Answer: 3-5 CARBS/MEAL Nutritional Intake Prior to Admission: >75% estimated energy needs over the past 3 week(s). Current intake remains adequate. States his appetite is good. Nursing is recording 75-100% for PO intake. BM 05/04. Patient encouraged to follow heart-healthy diet at home, he is very aware of this and agrees to follow this. Anthropometrics: Height: 177.8 cm (5' 10) Admission Weight: 98.7 kg (217 lb 9.5 oz) Current Weight: 96.1 kg (211 lb 13.8 oz) Body mass index is 30.4 kg/m?. class 1 obesity Weight has decreased voluntarily by 14.4 kg over 1 month representing 13.0% weight, change potentially clinically significant but does not meet criteria to support a malnutrition diagnosis. Some weight change may be fluid-related as well as poor appetite post-surgery combined with dietary compliance/portion control after discharge. Doubt malnutrition-related. Last Wt 05/06/18 : 96.1 kg (211 lb 13.8 oz) 04/28/18 : 100.2 kg (221 lb) 04/12/18 : 106.6 kg (235 lb) 04/05/18 : 111 kg (244 lb 11.4 oz) - standing inpatient weight 06/10/17 : 110.2 kg (243 lb) Recent Labs 05/05/18 0520 GLUC 94 BUN 21* CREAT 0.85 NA 138 K 4.0 CHLOR 103 CO2 25 HB 10.6* HCT 32.9* WBC 4.39 MNT Billing Type: Re-assess/15 min 1 unit SIGNATURE: Arielle Man RD PATIENT NAME: Carlos Buckner DATE: May 06, 2018 TIME: 8:55 AM PAGER: [phone] ANES POST Observed: 05/05/2018 Status: COMPLETED Source: [facility] 1:07 PM CLINIC OTHER CAMPUS REPOSITORY HNO ID: [id number] Author: Talia Perdue Service: Anesthesiology Author Type: Physician Type: Anesthesia PostOp Filed: 05/05/2018 1:07 PM Note Text: POST ANESTHESIA EVALUATION NOTE SERVICE DATE: 05/05/2018 SERVICE TIME: 1:07 PM : 1960 Vitals: 05/05/18 0600 05/05/18 1126 05/05/18 1214 05/05/18 1245 Temp: 36.6 ?C (97.9 ?F) (!) 35.9 ?C (96.6 ?F) 36.2 ?C (97.2 ?F) 36 ?C (96.8 ?F) 05/05/18 1214 05/05/18 1215 05/05/18 1230 05/05/18 1245 BP: 105/75 120/67 113/72 113/68 05/05/18 1126 05/05/18 1214 05/05/18 1215 05/05/18 1230 Pulse: 72 80 79 80 05/05/18 1126 05/05/18 1214 05/05/18 1215 05/05/18 1230 Resp: 18 12 12 17 05/05/18 1126 05/05/18 12105/05/18 1215 05/05/18 1230 SpO2: 96% 100% 100% 97% Validated Vital Signs: Yes POST ANES STATUS: No apparent anesthetic complications. The patient is appropriately hydrated with stable respiratory and cardiovascular status. Patient has safe and adequate airway control. The patient has appropriate pain relief and no significant post operative nausea or vomiting. The patient has achieved baseline mental status. Intra-Operative Events: No Significant Anesthesia Events Further assessment by Anesthesia Service: None Other Remarks: SIGNATURE: Talia Perdue MD PATIENT NAME: Carlos Buckner DATE: May 05, 2018 TIME: 1:07 PM PAGER/CONTACT #: [phone] PROGRESS Observed: 05/05/2018 Status: COMPLETED Source: [facility] 12:17 PM CLINIC OTHER CAMPUS REPOSITORY HNO ID: [id number] Author: Mike Rose Service: Thoracic Surgery Author Type: Physician Type: Progress Notes Filed: 05/05/2018 12:22 PM Note Text: CARDIOTHORACIC BRIEF OP NOTE LOG ID: [id number] SURGERY/PROCEDURE DATE: 05/05/2018 INCISION/PROCEDURE START TIME: 11:56 AM INCISION CLOSE/PROCEDURE END TIME: 12:03 PM SURGEON(S) AND PACKAGE PICK UP(S): Surgeon(s) and Role: * Mike Rose - Primary Premix Operator Concentrate: Katharina Bradley SA PROCEDURES AND ANESTHESIA: Incision, drainage and packing left leg saphenous vein harvest site/tunnel Procedure(s) and Anesthesia Type: * INCISION AND DRAINAGE POSTOPERATIVE WOUND COMPLEX LEFT LOWER LEG - General ANESTHESIA: General BRIEF FINDINGS: a little necrotic fat. No pus. PREOPERATIVE DIAGNOSIS: Cellulitis left leg saphenous vein site s/p CABG 03/28/2018 POSTOPERATIVE DIAGNOSIS: No pus. ESTIMATED BLOOD LOSS: Minimal SPECIMENS: cultures. COMPLICATIONS: None SIGNATURE: Mike Rose MD PATIENT NAME: Carlos Buckner DATE: May 05, 2018 TIME: 12:18 PM PAGER/CONTACT #: [phone] Observed: 05/05/2018 Status: F Source: [facility] 12:15 PM [facility] REPOSITORY Test performed at [facility] No growth No organisms seen Few Polymorphonuclear leukocytes Many RBCs Performed By: #### C_ANA #### [place] [id number] Observed: 05/05/2018 Status: F Source: [facility] 12:15 PM [facility] REPOSITORY Test performed at [facility] No growth Rare Gram negative bacilli Rare Gram positive cocci Few Polymorphonuclear leukocytes Moderate RBCs Performed By: #### C_ANA #### [place] [id number] ANES PREOP Observed: 05/05/2018 Status: COMPLETED Source: [place] 11:18 AM [facility] OTHER CAMPUS REPOSITORY O ID: [id number] Author: Talia Perdue Service: Anesthesiology Author Type: Physician Type: Anesthesia PreOp Filed: 05/05/2018 11:32 AM Note Text: ANESTHESIOLOGY DAY OF SURGERY NOTE SERVICE DATE: 05/05/2018 SERVICE TIME: 11:18 AM : 1960 Procedure(s) (LRB): INCISION AND DRAINAGE POSTOPERATIVE WOUND COMPLEX (N/A) Surgeon(s): Mike Rose Estimated body mass index is 30.32 kg/m? as calculated from the following: Height as of this encounter: 177.8 cm (5' 10). Weight as of this encounter: 95.8 kg (211 lb 4.8 oz). Most recent hematocrit and potassium results: Hematocrit (I-STAT) 32.9 05/05/2018 Potassium (I-STAT) 4.0 05/05/2018 57yo male with CAD s/p CABG 03/28/18 c/b wound cellulitis, TEOFILO, HL, IDDM, HTN Lantus, last dose yesterday Plavix, last dose yesterday Ancef, last dose 0500 (1g), q 8h ASA, metoprolol today ANES DOS/PREOP NOTE: Vitals: 05/04/18 2235 05/05/18 0600 05/05/18 0625 05/05/18 0856 BP: 106/72 116/59 Pulse: 92 90 Resp: Temp: 36.6 ?C (97.9 ?F) TempSrc: Temporal Artery Oral SpO2: 100% Weight: 95.8 kg (211 lb 4.8 oz) Height: ACTIVE PROBLEM LIST Hyperlipemia Teofilo (Obstructive Sleep Apnea) Dm (Diabetes Mellitus), Type 2, Uncontrolled ([facility]) Erectile Dysfunction Associated With Type 2 Diabetes Mellitus ([facility]) Hypertriglyceridemia Htn (Hypertension) Chest Pain Cad (Coronary Artery Disease) Acs (Acute Coronary Syndrome) ([facility]) Nstemi (Non-St Elevated Myocardial Infarction) ([facility]) S/P Cabg (Coronary Artery Bypass Graft) Wound Cellulitis After Surgery Cellulitis, Wound, Post-Operative 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/28/2018 - Type II or unspecified type diabetes mellitus without mention of complication, not stated as uncontrolled PAST SURGICAL HISTORY Procedure Laterality Date - CABG (4) VEIN GRAFTS AND ARTERIAL GRAFT(S) 03/28/2018 - COLONOSCOP W/ OR W/O [facility] SPEC 01/17/15 Colonoscopy - KIDNEY SURGERY HX - LITHOTRIPSY PROC UNILATERAL 2006 left side done in [place] - PAST SURGICAL HISTORY OF dog bite age 5 - PAST SURGICAL HISTORY OF chainsaw injury FAMILY HISTORY Problem Relation Age of Onset - other (polio) Mother - Emphysema Father - Diabetes Maternal Grandfather - COPD Paternal Grandmother - COPD Paternal Grandfather Social History: Social History Substance Use Topics - Smoking status: Never Smoker - Smokeless tobacco: Never Used - Alcohol use No No current facility-administered medications on file prior to encounter. Current Outpatient Prescriptions on File Prior to Encounter: ciprofloxacin HCl (CIPRO) 500 mg tablet Take 1 tablet by mouth twice daily for 10 days. lisinopril 2.5 mg tablet Take 1 tablet by mouth once daily. atorvastatin (LIPITOR) 80 mg tablet Take 1 tablet by mouth once daily. acetaminophen (TYLENOL) 325 mg tablet Take 1-2 tablets by mouth every 6 hours as needed for Fever (Temp >38.5C). aspirin 81 mg chewable tablet Take 1 tablet by mouth once daily. bisacodyl (DULCOLAX) 10 mg supp 1 Suppository by RECTAL route once daily as needed. clopidogrel (PLAVIX) 75 mg tablet Take 1 tablet by mouth once daily. melatonin 3 mg tablet Take 1 tablet by mouth at bedtime as needed (insomnia). metoprolol tartrate, short acting, (LOPRESSOR) 50 mg tablet Take 1 tablet by mouth every 8 hours. polyethylene glycol 3350 (MIRALAX, GLYCOLAX) 17 gram packet Take 1 Packet by mouth once daily. senna-docusate (SENNA-S) 8.6-50 mg per tablet Take 1 tablet by mouth twice daily. insulin glargine (LANTUS SOLOSTAR, BASAGLAR KWIKPEN) 100 unit/mL (3 mL) inpn Inject 16 Units subcutaneously every morning. insulin lispro (HUMALOG KWIKPEN) 100 unit/mL inpn Inject 6 Units subcutaneously w MEALS. Insulin [place], Disposable, (LITE TOUCH INSULIN PEN NEEDLES) 29 gauge x 1/2 ndle For insulin injections 4 times daily qoygoses-lnk-IM-lycopen-lutein (MEN 50 PLUS MULTIVITAMIN) 300-600-300 mcg tab Take 1 tablet by mouth once daily. empagliflozin (JARDIANCE) 25 mg tablet Take 1 tablet by mouth once daily. blood sugar diagnostic (BLOOD GLUCOSE TEST) test strip Test blood sugar(s) 2x daily. Dx: E11.65. Insulin: No metFORMIN (GLUCOPHAGE) 1,000 mg tablet Take 1 tablet by mouth twice daily with meals. Blood-Glucose Meter monitoring kit Glucose Meter of Choice - Kit - Dx: Type 2 DM - Uncontrolled E11.65 (per insurance) Lancets lancets Test blood sugar(s) 2x daily. Dx: E11.65. Insulin: No COMPOUNDED PRESCRIPTION CPAP @ 8 cm of water with humidification. Mask (per patient preference) optional chin strap (if indicated) , filters, tubing, humidifier and lifetime supplies. Dx. TEOFILO 327.23 Current Facility-Administered Medications: [MAR Hold due to Transfer] insulin glargine 16 Units pen (long acting) (LANTUS SOLOSTAR, BASAGLAR KWIKPEN) 16 Units SUBCUTANEOUS DAILY (8 AM) Mike Rose 16 Units at 05/04/18 0849 [MAR Hold due to Transfer] clopidogrel 75 mg tab(s) (PLAVIX) 75 mg ORAL DAILY Mike Rose 75 mg at 05/04/18 0843 [MAR Hold due to Transfer] metoprolol tartrate (short acting) 25 mg tab(s) (LOPRESSOR) 25 mg ORAL q 8 H Mike Rose 25 mg at 05/05/18 0600 [MAR Hold due to Transfer] ceFAZolin iv piggyback 1 g in D5W (iso-osmotic) 50 mL (ANCEF) 1 g INTRAVENOUS q 8 H Shweta (Digital Media Producer) [place] Last Rate: 100 mL/hr at 05/05/18 0518 1 g at 05/05/18 0518 [MAR Hold due to Transfer] acetaminophen 325-650 mg tab(s) (TYLENOL) 325-650 mg ORAL q 6 H PRN Alex (Digital Media Producer) APRN. [employer]at[employer]WORKING BENCH CARPENTER [MAR Hold due to Transfer] empagliflozin 25 mg tab(s) (JARDIANCE) 25 mg ORAL DAILY Alex (Digital Media Producer) APRN. [employer]at[employer]WORKING BENCH [employer]PENTER 25 mg at 05/04/18 0843 [MAR Hold due to Transfer] metFORMIN 1,000 mg tab(s) (GLUCOPHAGE) 1,000 mg ORAL BID w MEALS Alex (Digital Media Producer) ESTRELLITA OrtegaNMckennaWOODWORKING BENCH CARPENTER 1,000 mg at 05/04/18 1646 [MAR Hold due to Transfer] atorvastatin 80 mg tab(s) (LIPITOR) 80 mg ORAL DAILY Alex (Digital Media Producer) APRN. [employer]ENCH [employer]PENTER 80 mg at 05/05/18 0859 [MAR Hold due to Transfer] lisinopril 2.5 mg tab(s) 2.5 mg ORAL DAILY Alex (Digital Media Producer) ESTRELLITA OrtegaNMckennaWOODWORKING BENCH CARPENTER 2.5 mg at 05/05/18 0859 [MAR Hold due to Transfer] polyethylene glycol 3350 17 g packet (MIRALAX, GLYCOLAX) 17 g ORAL DAILY Alex (Digital Media Producer) ESTRELLITA OrtegaNMckennaWOODWORKING BENCH CARPENTER 17 g at 05/01/18 0852 [MAR Hold due to Transfer] senna-docusate 8.6-50 mg 1 tablet (SENNA-S) 1 tablet ORAL BID Alex (Juan) APRN. [employer]at[employer]WORKING BENCH CARPENTER 1 tablet at 05/05/18 0857 [MAR Hold due to Transfer] bisacodyl 10 mg suppository (DULCOLAX) 10 mg RECTAL DAILY PRN Alex (Juan) DANIELA Ortega [MAR Hold due to Transfer] melatonin 3 mg tab(s) 3 mg ORAL HS PRN Alex (Juan) DANIELA Ortega [MAR Hold due to Transfer] aspirin 81 mg chewable tab(s) 81 mg ORAL DAILY Alex (Juan) APRN. [employer]at[employer]WORKING BENCH CARPENTER 81 mg at 05/05/18 0857 [MAR Hold due to Transfer] therapeutic multivitamin with iron (THERAGRAN-M) 1 tablet ORAL DAILY Alex (Juan) DANIELA Ortega 1 tablet at 05/05/18 0859 [MAR Hold due to Transfer] heparin 5,000 Units injection 5,000 Units SUBCUTANEOUS q 12 H Alex (Juan) APRN. Prat[employer]WO[employer]WORKING BENCH CARPENTER 5,000 Units at 05/04/18 0844 [MAR Hold due to Transfer] NaCl 0.9% 3-5 mL 3-5 mL INTRAVENOUS q 12 H Alex (Juan) DANIELA Ortega 3 mL at 05/05/18 0900 [MAR Hold due to Transfer] oxyCODONE-acetaminophen 5-325 mg 1-2 tablet (PERCOCET) 1-2 tablet ORAL q 4 H PRN Alex (Juan) APRN. [employer]at[employer]WOODWORKING BENCH CARPENTER 1 tablet at 05/04/18 2137 [MAR Hold due to Transfer] dextrose 40 % 15 g 15 g ORAL PRN Alex (Juan) DANIELA Ortega Or [MAR Hold due to Transfer] glucagon 1 mg injection (GLUCAGEN) 1 mg INTRAMUSCULAR PRN Alex (Juan) DANIELA Ortega Or [MAR Hold due to Transfer] dextrose 50% in water 25 mL syringe 12.5 g INTRAVENOUS PRN Alex (Juan) ESTRELLITA OrtegaNELGIN Allergies: ALLERGIES Allergen Reactions - Oysters Rash, Itching - Shellfish Containin* Rash DOS EXAM: Adequate NPO status: Yes Anesthetic risks, benefits, alternatives, personnel and consent discussed: Yes Patient agrees to proceed: Yes Previous Anesthesia: No history of adverse event. Airway Assessment: MP 3; Neck ROM: Full ROM without neurologic symptoms; Airway Evaluation: Short Thyromental Distance Symptoms of Sleep Apnea: Hypertension and Male gender Dentition: Teeth intact Additional Physical Exam: Lungs: Patient health status unchanged since recent history and physical. See history and physical for exam findings. Cardiac: Patient health status unchanged since recent history and physical. See history and physical for exam findings. Additional Pertinent Findings: N/A Blood Products: Not anticipated for this procedure. Anesthetic Plan: General, Standard ASA Monitors Pain Management Plan: Parenteral or Oral ASA Class: 3 Other Medical Problems: None Chronic Beta Hector medication administered within 24 hours:yes I have interviewed and examined the patient. I have reviewed the medical record and/or the pre-anesthesia evaluation, pertinent labs, and test results. Significant changes in the patient's condition since the History and Physical, not otherwise documented in primary service progress notes: No This contains updated information obtained within 48 hours of Surgery/Procedure. SIGNATURE: Talia Perdue MD PATIENT NAME: Carlos Buckner DATE: May 05, 2018 TIME: 11:18 AM CSN: [id number] PROGRESS Observed: 05/05/2018 Status: COMPLETED Source: [place] 8:47 AM [facility] OTHER CAMPUS REPOSITORY [facility] ID: [id number] Author: Jazlyn Galicia Service: Cardiac Surgery Author Type: Nurse Practitioner Type: Progress Notes Filed: 05/05/2018 10:53 AM Note Text: CARDIOTHORACIC SURGERY POSTOP PROGRESS NOTE SERVICE DATE: 05/05/2018 SERVICE TIME: 8:48 AM Subjective SURGERY: Procedure(s) (LRB): INCISION AND DRAINAGE POSTOPERATIVE WOUND COMPLEX (Left) -Possible pending Eval with Dr Rose today. DATE OF SURGERY: 05/05/2018 POSTOP DAY #>1 month LOS: 7 HPI: Carlos Buckner is a 57 year old male that returns to the office today for 1 Month?post-discharge follow up for NSTEMI?s/p CABGX4 (QUIJANO-LAD; SVG-Diag; SVG-OM; SVG-PLB)?performed on 03/28/2018. His post-operative course was complicated by a brief episode of atrial fibrillation which resolved with amiodarone and concomitant respiratory distress which resolved with the atrial fibrillation. He was discharged home with [facility] on 04/05/2018. ?04/26, VNS reached out to this office about concern for red leg. A prescription for keflex was provided at that time. ?On 04/28/2018, Carlos Buckner returned to the [facility] office in follow-up for complaint of cellulitis. ?He reports that on Wednesday evening he noticed a red spot between the two GSV harvest sites. On Wednesday he was febrile 100.4F and VNS saw the red spot and called it into this office. He started the Keflex Wednesday and was able to get 3 doses in. That evening, the redness had worsened and he felt worse so he decided to go to [facility] ED. In the ed he had a fever again, but was advised to continue the keflex and he returned home. Today, the redness is well beyond the perdomo from VNS and ED. At that time he was directly admitted to [facility] for IV antibiotic management and started on . ?Per ID note, likely culprit is Strep, on Ancef IV. Today, Leg wound is about the same, TTP, red, area of fluctuance. See with Dr Rose, patient updated as to plan today IANDD under sedation in OR. Objective Admission Weight: 98.7 kg (217 lb 9.5 oz) BP 106/72 Pulse 92 Temp 36.6 ?C (97.9 ?F) (Temporal Artery) Resp 18 Ht 177.8 cm (5' 10) Wt 95.8 kg (211 lb 4.8 oz) SpO2 100% BMI 30.32 kg/m? Body surface area is 2.18 meters squared. Min/Max/Average Temperature AND Blood Pressure: Temp (24hrs), Av.7 ?C (98.1 ?F), Min:36.5 ?C (97.7 ?F), Max:37 ?C (98.6 ?F) Systolic (24hrs), Av , Min:106 , Max:119 Diastolic (24hrs), Av, Min:57, Max:72 No intake or output data in the 24 hours ending 05/05/18 0847 TELEMETRY: N/A PHYSICAL EXAM: General Appearance: well developed and no distress Skin: Midsternal incision dry AND intact., SVG incisions dry AND intact. and Left leg cellulits is persistant and unchanged from previus day. Lungs: clear and respiratory effort: normal Heart: S1, S2 normal Peripheral Vascular/Arteries: pulses intact Abdomen: soft, round, non-tender and bowel sounds present Musculoskeletal: no deformities Extremities: normal exam of the extremities Lines, Drains, and Airways Line Peripheral 04/28/18 1755 Short Right Forearm 20 Gauge 6 days DATA: Diagnostic tests reviewed for today's visit: Significant Lab Results: As Below Wounf Cx - No growth at 1 day Recent Labs 05/05/18 0520 RBC 3.59* WBC 4.39 HB 10.6* HCT 32.9* PLT 339 NA 138 K 4.0 CHLOR 103 CO2 25 BUN 21* CREAT 0.85 GLUC 94 CA 8.8 ANION 14 Assessment/Plan Cellulitis after surgery POA: Yes -exam the LLL, reduced redness -c/w IV ABX Ancef -ID on consult - Not likely associated with GSV incisions per ID -Seroma hematoma at medial knee site - low suspicion for infection. -U/S for fluid collection at site of cellulitis -Reveals complex fluid collection ? -no growth from specimen sent 05/03 -Dr Rose IANDBrandon in OR today -Hold Plavix 05/05 for IANDD -Hold Lantus/Metformin/Jardience 05/05 for NPO for IANDD ? NSTEMI S/P CABG x 4 -c/w current med: ASA, BB, STATIN -walk -CXR reviewed, stable ? PAF -NSR ? DM - Stop prandial humalog for low normal accucheck - continue Jardience, metformin and lantus - continue accucheck am ? DISPO: Home with home health care when transition to Oral Abx per ID ? Tests/Labs Ordered: 1. None SIGNATURE: Jazlyn Galicia APRN.CNP PATIENT NAME: Carlos Buckner DATE: May 05, 2018 TIME: 8:47 AM PAGER/CONTACT #: [phone] ETX [id number] MDRD GFR Collected: 05/05/2018 Status: F Source: [facility] 5:20 AM HEALTH SYSTEM REPOSITORY TYPE CODE TESTS RESULT OUT OF RANGE REFERENCE UNITS LAB GFRFN(LOINC >60mL/min/1.73m ) 2 eGFR >60 Result Comment: If the patient is , multiply the result by 1.210. Performed By: #### GFR #### [facility] [address] [place] [id number] HEMOGRAM Collected: 05/05/2018 Status: F Source: [facility] 5:20 AM HEALTH SYSTEM REPOSITORY TYPE CODE TESTS RESULT OUT OF REFERENCE UNITS RANGE LAB WBC(LOINC) 4.23-9.07 thou/cmm WBC 4.39 LAB RBC(LOINC) 4.63-6.08 mil/cmm Low RBC 3.59 LAB HGB(LOINC) 13.7-17.5 g/dL Low Hgb 10.6 LAB HCT(LOINC) 40.1-51.0 % Low Hct 32.9 LAB MCV(LOINC) 83.2-95.6 fl MCV 91.6 LAB MCH(LOINC) 25.7-32.2 pg MCH 29.5 LAB MCHC(LOINC) 32.3-36.5 % Low MCHC 32.2 LAB RDW(LOINC) 11.6-14.4 % RDW 13.4 LAB RDWSD(LOINC 36.1-45.8 fl ) RDW SD 45.5 LAB PLT(LOINC) 141-365 thou/cmm Platelet 339 LAB MPV(LOINC) 8.7-12.0 fl MPV 9.1 Performed By: #### CBC1 #### [facility] [address] [place] [id number] BASIC PANEL Collected: 05/05/2018 Status: F Source: [facility] 5:20 AM HEALTH SYSTEM REPOSITORY TYPE CODE TESTS RESULT OUT OF REFERENCE UNITS RANGE LAB NA(LOINC) 136-145 mEq/L Sodium Blood 138 LAB K(LOINC) 3.5-5.1 mEq/L Potassium Blood 4.0 LAB CL(LOINC) 98-107 mEq/L Chloride Blood 103 LAB CO2(LOINC) 21-32 mEq/L CO2 Blood 25 LAB GLU(LOINC) 70-99 mg/dL Glucose Blood 94 LAB BUN(LOINC) 7-18 mg/dL BUN High Blood 21 LAB CREA(LOINC 0.67-1.17 mg/dL ) Creatinine Blood 0.85 LAB CA(LOINC) 8.5-10.1 mg/dL Calcium Blood 8.8 LAB ANGAP(LOIN 8-16 C) Anion Gap 14 Performed By: #### P8 #### [facility] [address] [id number] OPERATIVE NO Observed: 05/05/2018 Status: COMPLETED Source: [place] 12:00 AM CLINIC OTHER CAMPUS REPOSITORY HNO ID: [id number] Author: Mike Rose Service: Thoracic Surgery Author Type: Physician Type: Operative Report Filed: 05/09/2018 10:02 AM Note Text: [facility] - Operative Report CARLOS BUCKNER : 1960 AGE: 57. SEX: M PATIENT TYPE: I HOSP SVC: THOR LOCATION: [id number] ATTENDING PHYSICIAN: MIKE ROSE CSN NUMBER: [id number] DATE OF SURGERY/PROCEDURE: 05/05/2018 INCISION/PROCEDURE START TIME: 11:56 AM INCISION CLOSE/PROCEDURE END TIME: 12:03 PM PREOPERATIVE DIAGNOSIS: Cellulitis, left leg following saphenous vein harvest for coronary artery bypass grafting, persistent cellulitis. POSTOPERATIVE DIAGNOSIS: Cellulitis, left leg following saphenous vein harvest for coronary artery bypass grafting, persistent cellulitis with no pus found. SURGEON: Mike Rose MD PACKAGE PICK UP: Katharina Bradley SA SURGERY/PROCEDURE: Incision and drainage of left leg saphenous vein harvest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 technologist to be along the left distal leg within a region of vein harvesting. ?This presumably represents a different area than the region which was scanned 5 days ago. ?There is a 3.2 x 0.7 x 1.5 cm mildly complex fluid collection. ? IMPRESSION: There is a superficial fluid collection of the distal left leg at an area of prior ?vein harvesting. ?The sterilely of the fluid is indeterminant. ?This may represent seroma, hematoma or abscess. US DVT Lower Ext Left: 04/28/2018: IMPRESSION: Negative for left lower extremity DVT ? Impression/Recommendations This is a 57 year old male with LLE cellulitis, questionable abscess. - Medical management per primary team - Antibiotics per ID: Appears to be responding to IV Cefazolin - DM Type II: Controlled - LLE wound with 3.2 x 0.7 x 1.5 cm mildly complex fluid collection per ultrasound. Will discuss assessment and plan with attending, Dr. Buckley. - Questionable IANDD vs continue antibiotics. Addendum: 1520: - Bedside aspiration of approximately 1 ml of bloody-purulent, thick fluid. Culture obtained and sent to lab. SIGNATURE: Bernarda Rehman APRN.CNP PATIENT NAME: Carlos Buckner DATE: May 03, 2018 TIME: 10:03 AM PAGER: see pager Emergency General Surgery Service Pager: For questions or concerns Mon-Fri 6a-5p please page [phone]. After 5pm and on Weekends and Holidays, please page [phone] if in ICU or [phone] if on RNF. PROGRESS Observed: 05/03/2018 Status: COMPLETED Source: [facility] 9:45 AM CLINIC OTHER CAMPUS REPOSITORY HNO ID: [id number] Author: Nell Davey Service: Infectious Disease Author Type: Physician Type: Progress Notes Filed: 05/03/2018 10:24 AM Note Text: INFECTIOUS DISEASE PROGRESS NOTE Patient Name: Carlos Buckner ASSESSMENT: ?1. Left LE Non- purulent Cellulitis, likely Strep > SA , with concern for Infected Fluid collection 2. S/P CABG 03/28 with Left LE SVG sites - do not appear infected 3. Fever resolved 4. Failed Management Oral ATB 5. DM Type II 6. Ac on Chronic Anemia 7.Thigh fluid collection, clinically low suspicion of infection at this time, post op. Monitor ? RECOMMENDATIONS: Continue Ancef C/S Gen Surg for I AND D Keep Elevated Follow CBC/ Temps INTERVAL HISTORY: Afebrile, VSS C/o LLE Pain, erythema/ edema improving. Non Vasc US significant for small fluid collection LLE SVG site clean and dry. No acute events. MEDICATIONS: reviewed. Current hospital medications: insulin glargine 16 Units pen (long acting) (LANTUS SOLOSTAR, BASAGLAR KWIKPEN) 16 Units SUBCUTANEOUS DAILY (8 AM) clopidogrel 75 mg tab(s) (PLAVIX) 75 mg ORAL DAILY metoprolol tartrate (short acting) 25 mg tab(s) (LOPRESSOR) 25 mg ORAL q 8 H ceFAZolin iv piggyback 1 g in D5W (iso-osmotic) 50 mL (ANCEF) 1 g INTRAVENOUS q 8 H acetaminophen 325-650 mg tab(s) (TYLENOL) 325-650 mg ORAL q 6 H PRN empagliflozin 25 mg tab(s) (JARDIANCE) 25 mg ORAL DAILY metFORMIN 1,000 mg tab(s) (GLUCOPHAGE) 1,000 mg ORAL BID w MEALS atorvastatin 80 mg tab(s) (LIPITOR) 80 mg ORAL DAILY lisinopril 2.5 mg tab(s) 2.5 mg ORAL DAILY insulin lispro 6 Units pen (rapid acting) (HumaLOG KWIKPEN) 6 Units SUBCUTANEOUS w MEALS polyethylene glycol 3350 17 g packet (MIRALAX, GLYCOLAX) 17 g ORAL DAILY senna-docusate 8.6-50 mg 1 tablet (SENNA-S) 1 tablet ORAL BID bisacodyl 10 mg suppository (DULCOLAX) 10 mg RECTAL DAILY PRN melatonin 3 mg tab(s) 3 mg ORAL HS PRN aspirin 81 mg chewable tab(s) 81 mg ORAL DAILY therapeutic multivitamin with iron (THERAGRAN-M) 1 tablet ORAL DAILY heparin 5,000 Units injection 5,000 Units SUBCUTANEOUS q 12 H NaCl 0.9% 3-5 mL 3-5 mL INTRAVENOUS q 12 H oxyCODONE-acetaminophen 5-325 mg 1-2 tablet (PERCOCET) 1-2 tablet ORAL q 4 H PRN dextrose 40 % 15 g 15 g ORAL PRN glucagon 1 mg injection (GLUCAGEN) 1 mg INTRAMUSCULAR PRN dextrose 50% in water 25 mL syringe 12.5 g INTRAVENOUS PRN PHYSICAL EXAM: Vital signs: BP 116/66 Pulse 67 Temp 36.6 ?C (97.9 ?F) (Oral) Resp 16 Ht 177.8 cm (5' 10) Wt 95.8 kg (211 lb 1.6 oz) SpO2 99% BMI 30.29 kg/m? Temp (24hrs), Av.8 ?C (98.2 ?F), Min:36.6 ?C (97.9 ?F), Max:37 ?C (98.6 ?F) GEN: Alert, pleasant, NAD HEENT: PERRL, moist oral mucosa, neck supple PULM: CTA bilateral, no rhonchi/wheezes. CV: RRR- midline sternal incision c/d/i GI: soft, non distended, non tender, BSx4 : no weaver, no CVAT EXT: Left lower extremity mild edema, + erythema, no wounds or purulence, small amount central fluctuance -- no joint inflammation -- SVG site without s/o infection SKIN: no rash NEURO: no focal deficits, Alert and oriented x3 LINES: PIV sites clean Lab data: reviewed Recent Labs 05/02/18 0410 WBC 4.12* HB 10.8* PLT 293 NA 138 K 3.8 CO2 26 BUN 21* CREAT 1.00 Microbiology data: reviewed 04/30 Blood Cx: ngtd MRSA nares neg. Imaging data: reviewed [facility] Bhak[facility] Pager: [phone] May 03, 2018 9:47 AM Thank you for the consult. We will continue to follow the patient with you. Please call for any questions or concerns. Have seen and evaluated. Agree with above unless otherwise noted. Nell Davey MD PROGRESS Observed: 05/03/2018 Status: COMPLETED Source: [facility] 9:28 AM CLINIC OTHER CAMPUS REPOSITORY HNO ID: [id number] Author: Mike Rose Service: Cardiac Surgery Author Type: Physician Type: Progress Notes Filed: 05/03/2018 4:18 PM Note Text: CARDIOTHORACIC SURGERY POSTOP PROGRESS NOTE SERVICE DATE: 05/03/2018 SERVICE TIME: 9:35 AM Subjective S/P SURGERY: CABG X 4 (QUIJANO-LAD; SVG-Diag; SVG-OM; SVG-PLB) DATE OF SURGERY: 03/28/2018 POSTOP DAY #>1 month LOS: 5 HPI: Carlos Buckner is a 57 year old male that returns to the office today for 1 Month post-discharge follow up for NSTEMI?s/p CABGX4 (QUIJANO-LAD; SVG-Diag; SVG-OM; SVG-PLB)?performed on 03/28/2018. His post-operative course was complicated by a brief episode of atrial fibrillation which resolved with amiodarone and concomitant respiratory distress which resolved with the atrial fibrillation. He was discharged home with [facility] on 04/05/2018. ?04/26, [facility] reached out to this office about concern for red leg. A prescription for keflex was provided at that time. On 04/28/2018, Carlos Buckner returned to the [facility] office in follow-up for complaint of cellulitis. He reports that on Wednesday evening he noticed a red spot between the two GSV harvest sites. On Wednesday he was febrile 100.4F and [facility] saw the red spot and called it into this office. He started the Keflex Wednesday and was able to get 3 doses in. That evening, the redness had worsened and he felt worse so he decided to go to [facility] ED. In the ed he had a fever again, but was advised to continue the keflex and he returned home. Today, the redness is well beyond the perdomo from [facility] and ED. At that time he was directly admitted to [facility] for IV antibiotic management and started on . Per ID note, likely culprit is Strep, on Ancef IV. Today, Mr Buckner reports he is doing well, looking forward to going home. He reports some pain With ambulation in his LLE. The swelling and redness is much improved, however, there is an evident fluid collection at the site of cellulitis. Objective Admission Weight: 98.7 kg (217 lb 9.5 oz) BP 116/66 Pulse 67 Temp 36.6 ?C (97.9 ?F) (Oral) Resp 16 Ht 177.8 cm (5' 10) Wt 95.8 kg (211 lb 1.6 oz) SpO2 99% BMI 30.29 kg/m? Body surface area is 2.18 meters squared. Min/Max/Average Temperature AND Blood Pressure: Temp (24hrs), Av.8 ?C (98.3 ?F), Min:36.4 ?C (97.5 ?F), Max:37.1 ?C (98.8 ?F) Systolic (24hrs), Av , Min:103 , Max:116 Diastolic (24hrs), Av, Min:48, Max:69 Intake/Output Summary (Last 24 hours) at 05/03/18 0935 Last data filed at 05/02/18 2300 Gross per 24 hour Intake 360 ml Output 0 ml Net 360 ml TELEMETRY: normal sinus rhythm PHYSICAL EXAM: General Appearance: well developed and no distress Skin: Midsternal incision dry AND intact., SVG incisions dry AND intact. and Left LE area of cellulitis is reduced and redness improved, evidnet area of fluid collection Lungs: clear and respiratory effort: normal Heart: regular rhythm and no murmur Peripheral Vascular/Arteries: pulses intact Abdomen: soft, round, non-tender and bowel sounds present Musculoskeletal: no deformities Extremities: normal exam of the extremities Lines, Drains, and Airways Line Peripheral 04/28/18 1755 Short Right Forearm 20 Gauge 4 days DATA: Diagnostic tests reviewed for today's visit: U/S LE fluid collection RESULTS: Targeted scanning demonstrates a mildly heterogeneous hypoechoic fluid collection just deep to the skin surface which is reported by the technologist to be along the left distal leg within a region of vein harvesting. ?This presumably represents a different area than the region which was scanned 5 days ago. ?There is a 3.2 x 0.7 x 1.5 cm mildly complex fluid collection. ? ? IMPRESSION: There is a superficial fluid collection of the distal left leg at an area of prior ?vein harvesting. ?The sterilely of the fluid is indeterminant. ?This may represent seroma, hematoma or abscess. ? This was reported by the technologist to be along the left distal leg/calf. ?This appears to be different than the area which was previously scanned which was noted ?as distal thigh Recent Labs 05/02/18 0410 RBC 3.61* WBC 4.12* HB 10.8* HCT 33.1* PLT 293 NA 138 K 3.8 CHLOR 102 CO2 26 BUN 21* CREAT 1.00 GLUC 136* CA 8.9 ANION 14 Assessment/Plan Cellulitis after surgery POA: Yes -exam the LLL, reduced redness -c/w IV ABX Ancef -ID on consult - Not likely associated with GSV incisions per ID -Seroma hematoma at medial knee site - low suspicion for infection. -U/S for fluid collection at site of cellulitis -Reveals complex fluid collection -CT guided abscess drain per Dr Rose ? NSTEMI S/P CABG x 4 -c/w current med: ASA, BB, STATIN -walk -CXR reviewed, stable ? PAF -NSR ? DISPO: Home with home health care when transition to Oral Abx per ID ? Tests/Labs Ordered: 1. CT guided abscess drain placement SIGNATURE: Jazlyn Galicia APRN.JUAN PATIENT NAME: Carlos Buckner DATE: May 03, 2018 TIME: 9:35 AM PAGER/CONTACT #: [id number] [id number] Patient seen this afternoon apparently just after someone aspirated the left leg which I had requested be done in IR. Cellulitis improving. Patient expected to have complex fluid collection in saph vein harvest tunnel and I don't want to place incision unless necessary. Will await cult results on aspirate. P-cont antibiotics. I will decide re: ? Incision and poss drainage on his leg. US EXTREMITY Observed: 05/02/2018 Status: F Source: [facility] MASS/FLUID SERGE LEFT 10:40 PM HEALTH SYSTEM COMPLT REPOSITORY Performed at [facility] APPROVED BY: Dariel Jaramillo MD EXAM TITLE: TARGETED SOFT TISSUE ULTRASOUND OF THE LEFT LOWER EXTREMITY DATE:05/02/2018 20:46 COMPARISON: Ultrasound of the left leg 04/28/2018 CLINICAL INDICATION/HISTORY: Evaluate for abscess TECHNIQUE: Targeted scanning of the left lower extremity was performed by the seam hammerer. Images were stored in a permanent archive. RESULTS: Targeted scanning demonstrates a mildly heterogeneous hypoechoic fluid collection just deep to the skin surface which is reported by the technologist to be along the left distal leg within a region of v ein harvesting. This presumably represents a different area than the region which was scanned 5 days ago. There is a 3.2 x 0.7 x 1.5 cm mildly complex fluid collection. IMPRESSION: There is a superficial fluid collection of the distal left leg at an area of prior vein harvesting. The sterilely of the fluid is indeterminant. This may represent seroma, hematoma or abscess. This was reported by the technologist to be along the left distal leg/calf. This appears to be different than the area which was previously scanned which was noted as distal thigh CASE MANAGEM Observed: 05/02/2018 Status: COMPLETED Source: [facility] 12:20 PM CLINIC OTHER CAMPUS REPOSITORY HNO ID: [id number] Author: Holly Acosta) KENYETTA Wolf Service: Care Management Author Type: Registered Nurse Type: Care Mgt Progress Note Filed: 05/02/2018 12:24 PM Note Text: CARE MANAGEMENT PROGRESS NOTE SERVICE DATE: 05/02/2018 SERVICE TIME: 1220 LOS: 4 days Needs Prior to Discharge: Home Care Order;IV Antibiotics Chart reviewed. Met w/ patient. Pt is recent CABG 04/05. Active w/ [facility]. Plan is to return HOME at [facility] w/ once medically ready. . Pt states able to transport home. CM to follow. SIGNATURE: Holly Wolf RN PATIENT NAME: Carlos Buckner DATE: May 02, 2018 TIME: 12:20 PM PAGER/CONTACT #: [email or web address] Observed: 05/02/2018 Status: COMPLETED Source: [facility] 11:01 AM CLINIC OTHER CAMPUS REPOSITORY O ID: [id number] Author: Nell Davey Service: Infectious Disease Author Type: Physician Type: Progress Notes Filed: 05/02/2018 12:25 PM Note Text: INFECTIOUS DISEASE PROGRESS NOTE Patient Name: Carlos Buckner ASSESSMENT: ? 1. Left LE Non- purulent Cellulitis, likely Strep > SA , ? Infected Fluid collection 2. S/P CABG 03/28 with Left LE SVG sites - do not appear infected 3. Fever resolved 4. Failed Management Oral ATB 5. DM Type II 6. Ac on Chronic Anemia 7.Thigh fluid collection, clinically low suspicion of infection at this time, post op. Monitor ? RECOMMENDATIONS: Continue Ancef Check non-vasc US to evaluate for fluid collection (fluctuant swelling on exam) Keep Elevated Follow CBC/ Temps INTERVAL HISTORY: Afebrile, VSS C/o LLE Pain, erythema/ edema improving. Small central fluctuance noted. LLE SVG site clean and dry. No acute events. MEDICATIONS: reviewed. Current hospital medications: insulin glargine 16 Units pen (long acting) (LANTUS SOLOSTAR, BASAGLAR KWIKPEN) 16 Units SUBCUTANEOUS DAILY (8 AM) clopidogrel 75 mg tab(s) (PLAVIX) 75 mg ORAL DAILY metoprolol tartrate (short acting) 25 mg tab(s) (LOPRESSOR) 25 mg ORAL q 8 H ceFAZolin iv piggyback 1 g in D5W (iso-osmotic) 50 mL (ANCEF) 1 g INTRAVENOUS q 8 H acetaminophen 325-650 mg tab(s) (TYLENOL) 325-650 mg ORAL q 6 H PRN empagliflozin 25 mg tab(s) (JARDIANCE) 25 mg ORAL DAILY metFORMIN 1,000 mg tab(s) (GLUCOPHAGE) 1,000 mg ORAL BID w MEALS atorvastatin 80 mg tab(s) (LIPITOR) 80 mg ORAL DAILY lisinopril 2.5 mg tab(s) 2.5 mg ORAL DAILY insulin lispro 6 Units pen (rapid acting) (HumaLOG KWIKPEN) 6 Units SUBCUTANEOUS w MEALS polyethylene glycol 3350 17 g packet (MIRALAX, GLYCOLAX) 17 g ORAL DAILY senna-docusate 8.6-50 mg 1 tablet (SENNA-S) 1 tablet ORAL BID bisacodyl 10 mg suppository (DULCOLAX) 10 mg RECTAL DAILY PRN melatonin 3 mg tab(s) 3 mg ORAL HS PRN aspirin 81 mg chewable tab(s) 81 mg ORAL DAILY therapeutic multivitamin with iron (THERAGRAN-M) 1 tablet ORAL DAILY heparin 5,000 Units injection 5,000 Units SUBCUTANEOUS q 12 H NaCl 0.9% 3-5 mL 3-5 mL INTRAVENOUS q 12 H oxyCODONE-acetaminophen 5-325 mg 1-2 tablet (PERCOCET) 1-2 tablet ORAL q 4 H PRN dextrose 40 % 15 g 15 g ORAL PRN glucagon 1 mg injection (GLUCAGEN) 1 mg INTRAMUSCULAR PRN dextrose 50% in water 25 mL syringe 12.5 g INTRAVENOUS PRN PHYSICAL EXAM: Vital signs: BP 115/59 Pulse 71 Temp 36.6 ?C (97.9 ?F) (Oral) Resp 18 Ht 177.8 cm (5' 10) Wt 96.6 kg (212 lb 15.4 oz) SpO2 97% BMI 30.56 kg/m? Temp (24hrs), Av.8 ?C (98.2 ?F), Min:36.6 ?C (97.9 ?F), Max:37 ?C (98.6 ?F) GEN: Alert, pleasant, NAD HEENT: PERRL, moist oral mucosa, neck supple PULM: CTA bilateral, no rhonchi/wheezes. CV: RRR- midline sternal incision c/d/i GI: soft, non distended, non tender, BSx4 : no weaver, no CVAT EXT: Left lower extremity mild edema, + erythema, no wounds or purulence, small amount central fluctuance -- no joint inflammation -- SVG site without s/o infection SKIN: no rash NEURO: no focal deficits, Alert and oriented x3 LINES: PIV sites clean Lab data: reviewed Recent Labs 05/02/18 0410 04/30/18 0415 WBC 4.12* 3.47* HB 10.8* 10.3* PLT 293 266 NA 138 139 K 3.8 3.8 CO2 26 24 BUN 21* 17 CREAT 1.00 0.90 Microbiology data: reviewed 04/30 Blood Cx: ngtd MRSA nares neg. Imaging data: reviewed [facility] Bhak[facility] Pager: [phone] May 02, 2018 11:03 AM Thank you for the consult. We will continue to follow the patient with you. Please call for any questions or concerns. Have seen and evaluated. Agree with above unless otherwise noted Nell Davey MD NUTRITION Observed: 05/02/2018 Status: COMPLETED Source: [facility] 10:27 AM CLINIC OTHER CAMPUS REPOSITORY HNO ID: [id number] Author: Arielle Stephenson) AL Man Service: Nutrition Therapy Author Type: Registered Dietitian Type: Nutrition Filed: 05/02/2018 2:40 PM Note Text: NUTRITION THERAPY SCREENING NOTE SERVICE DATE: 05/02/2018 SERVICE TIME: 12:10 NUTRITION CARE PLAN: Intervention: 1. Encouraged heart-healthy diet Monitor and Evaluation: Goal: Meet >75% of estimated needs Monitor fluid/electrolyte balance Monitor labs, I/Os, vital signs, weight Discharge Nutrition Recommendations: Diet: Heart-healthy Reason for Assessment: Recent diagnosis of malnutrition Per HPI: Mr. Gonzalez is a 57 yo patient with PMH of NSTEMI s/p CABG X4 (QUIJANO-LAD; SVG-Diag; SVG-OM; SVG-PLB) on 03/28/[address] Rose, who returned to [facility] office for left leg cellulitis evaluation on 04/28 after initial treatment with Keflex three days prior, patient was able to take a bout 3 doses prior to the visit. He reported with worsening on his cellulitis. 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 Rose decided patient is needed to be admitted to Inpatient with IV ABX management given impression of patient did not respond to the initial PO ABX in the setting of DM. Of note, his post-op recovery was complicated by respiratory distress and a brief episode of PAF resolved with PO amiodarone. He was discharged to home on POD 04/05/2018. ACTIVE PROBLEM LIST Hyperlipemia Teofilo (Obstructive Sleep Apnea) Dm (Diabetes Mellitus), Type 2, Uncontrolled (Hcc) Erectile Dysfunction Associated With Type 2 Diabetes Mellitus (Hcc) Hypertriglyceridemia Htn (Hypertension) Chest Pain Cad (Coronary Artery Disease) Acs (Acute Coronary Syndrome) (Hcc) Nstemi (Non-St Elevated Myocardial Infarction) ([facility]) Malnutrition of Mild Degree (Hcc) S/P Cabg (Coronary Artery Bypass Graft) Wound Cellulitis After Surgery 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/28/2018 - Type II or unspecified type diabetes mellitus without mention of complication, not stated as uncontrolled PAST SURGICAL HISTORY Procedure Laterality Date - CABG (4) VEIN GRAFTS AND ARTERIAL GRAFT(S) 03/28/2018 - COLONOSCOP W/ OR W/O BRSH SPEC 01/17/15 Colonoscopy - KIDNEY SURGERY HX - LITHOTRIPSY PROC UNILATERAL 2006 left side done in [place] - PAST SURGICAL HISTORY OF dog bite age 5 - PAST SURGICAL HISTORY OF chainsaw injury Current Diet Order DIET HEART HEALTHY Order Specific Question: Heart Healthy Answer: 2 GM SODIUM (<200 MG CHOL / LOW SAT FAT) Lines and Drains: Peripheral 04/28/18 1755 Short Right Forearm 20 Gauge (Active) Nutritional Intake Prior to Admission: >75% estimated energy needs over the past 3 week(s). Per patient, he did not eat great right after surgery, but I did alright at home. States he does not like the food here, ate better at home. Did have some snacks from home at bedside noted (unsalted almonds, a banana). Denies any issues with appetite otherwise. States he has lost weight but that's because my is guarding the goodies! Denies any unintentional weight loss otherwise. GI symptoms: 05/01 Nutrition Abdominal Exam: bowel sounds are normal per nursing flowsheet ANTHROPOMETRICS Height: 177.8 cm (5' 10) Admission Weight: 98.7 kg (217 lb 9.5 oz) Current Weight: 96.6 kg (212 lb 15.4 oz) Body mass index is 30.56 kg/m?. class 1 obesity Weight has decreased voluntarily by 14.4 kg over 1 month representing 13.0% weight, change potentially clinically significant but does not meet criteria to support a malnutrition diagnosis. Some weight change may be fluid-related as well as poor appetite post-surgery combined with dietary compliance/portion control after discharge. Doubt malnutrition-related. Last Wt 05/02/18 : 96.6 kg (212 lb 15.4 oz) - standing weight 04/28/18 : 100.2 kg (221 lb) 04/12/18 : 106.6 kg (235 lb) 04/05/18 : 111 kg (244 lb 11.4 oz) - standing inpatient weight 06/10/17 : 110.2 kg (243 lb) Temperature Max in 24 hours: Temp (24hrs), Av.7 ?C (98.1 ?F), Min:36.6 ?C (97.9 ?F), Max:36.9 ?C (98.4 ?F) BP 115/59 Pulse 71 Temp 36.6 ?C (97.9 ?F) (Oral) Resp 18 Ht 177.8 cm (5' 10) Wt 96.6 kg (212 lb 15.4 oz) SpO2 97% BMI 30.56 kg/m? Recent Labs 05/02/18 0410 GLUC 136* BUN 21* CREAT 1.00 NA 138 K 3.8 CHLOR 102 CO2 26 HB 10.8* HCT 33.1* WBC 4.12* ALLERGIES Allergen Reactions - Oysters Rash, Itching - Shellfish Containin* Rash Current Facility-Administered Medications: insulin glargine 16 Units pen (long acting) (LANTUS SOLOSTAR, BASAGLAR KWIKPEN) 16 Units SUBCUTANEOUS DAILY (8 AM) clopidogrel 75 mg tab(s) (PLAVIX) 75 mg ORAL DAILY metoprolol tartrate (short acting) 25 mg tab(s) (LOPRESSOR) 25 mg ORAL q 8 H ceFAZolin iv piggyback 1 g in D5W (iso-osmotic) 50 mL (ANCEF) 1 g INTRAVENOUS q 8 H acetaminophen 325-650 mg tab(s) (TYLENOL) 325-650 mg ORAL q 6 H PRN empagliflozin 25 mg tab(s) (JARDIANCE) 25 mg ORAL DAILY metFORMIN 1,000 mg tab(s) (GLUCOPHAGE) 1,000 mg ORAL BID w MEALS atorvastatin 80 mg tab(s) (LIPITOR) 80 mg ORAL DAILY lisinopril 2.5 mg tab(s) 2.5 mg ORAL DAILY insulin lispro 6 Units pen (rapid acting) (HumaLOG KWIKPEN) 6 Units SUBCUTANEOUS w MEALS polyethylene glycol 3350 17 g packet (MIRALAX, GLYCOLAX) 17 g ORAL DAILY senna-docusate 8.6-50 mg 1 tablet (SENNA-S) 1 tablet ORAL BID bisacodyl 10 mg suppository (DULCOLAX) 10 mg RECTAL DAILY PRN melatonin 3 mg tab(s) 3 mg ORAL HS PRN aspirin 81 mg chewable tab(s) 81 mg ORAL DAILY therapeutic multivitamin with iron (THERAGRAN-M) 1 tablet ORAL DAILY heparin 5,000 Units injection 5,000 Units SUBCUTANEOUS q 12 H NaCl 0.9% 3-5 mL 3-5 mL INTRAVENOUS q 12 H oxyCODONE-acetaminophen 5-325 mg 1-2 tablet (PERCOCET) 1-2 tablet ORAL q 4 H PRN dextrose 40 % 15 g 15 g ORAL PRN Or glucagon 1 mg injection (GLUCAGEN) 1 mg INTRAMUSCULAR PRN Or dextrose 50% in water 25 mL syringe 12.5 g INTRAVENOUS PRN Date 05/01/18699 - 05/02/18 0659 05/02/18 07 - 05/03/18 0659 Shift 7672-2716 0120-2652 4329-9488 24 Hour Total 4549-5837 1381-3539 9699-0801 24 Hour Total I N T A K E PO 240 240 PO 240 240 IV 50 50 Cefazolin IV 50 50 Shift Total 290 290 O U T P U T Urine 1000 1000 Void (ml) 1000 1000 # of BMs Number of BMs 1 x 1 x Shift Total 1000 1000 Weight (kg) 98.3 98.3 98.3 98.3 96.6 96.6 96.6 96.6 Surgical Incision 04/28/18 2246 Chest - Midsternal (Active) Dressing Status None: Open to Air 05/02/2018 9:30 AM Incision Closures None 05/02/2018 9:30 AM Drainage Description None 05/02/2018 9:30 AM Drainage Amount None 05/02/2018 9:30 AM Edges Intact 05/02/2018 9:30 AM Hematoma No 05/02/2018 9:30 AM Number of days: 3 [facility] in the past year:No results for input(s): CHROMIUM, COPPER, MANGANESE, SELENIUM, VITAMINA, VITB1, VITB2, VITB6, B12, METHYLMAL, VITD25, VITAMINE, VITAK, ZINC, TIBC, FE, PHONG in the last 8784 hours. MNT Billing Type: Initial Assess/15 min 2 units SIGNATURE: Arielle Man RD PATIENT NAME: Carlos Buckner DATE: May 02, 2018 TIME: 10:27 AM PAGER: [phone] PROGRESS Observed: 05/02/2018 Status: COMPLETED Source: [facility] 8:06 AM CLINIC OTHER CAMPUS REPOSITORY HNO ID: [id number] Author: Mike Rose Service: Cardiac Surgery Author Type: Physician Type: Progress Notes Filed: 05/02/2018 5:18 PM Note Text: CARDIOTHORACIC SURGERY POSTOP PROGRESS NOTE SERVICE DATE: 05/02/2018 SERVICE TIME: 8:07 AM Subjective S/P SURGERY: CABG X 4 (QUIJANO-LAD; SVG-Diag; SVG-OM; SVG-PLB) DATE OF SURGERY: 03/28/2018 POSTOP DAY # >1 month LOS: 4 HPI: Carlos Buckner is a 57 year old male that returns to the office today for 1 week post-discharge follow up for NSTEMI?s/p CABGX4 (QUIJANO-LAD; SVG-Diag; SVG-OM; SVG-PLB)?performed on 03/28/2018. His post-operative course was complicated by a brief episode of atrial fibrillation which resolved with amiodarone and concomitant respiratory distress which resolved with the atrial fibrillation. He was discharged home with [facility] on 04/05/2018. 04/26, VNS reached out to this office about concern for red leg. A prescription for keflex was provided at that time. He returns today to follow-up on the red leg. ? On 04/28/2018, Carlos Buckner returned to the [facility] office in follow-up for complaint of red leg. He reports that on Wednesday evening he noticed a red spot between the two GSV harvest site. On Wednesday he was febrile 100.4F and VNS saw the red spot and called it into this office. He started the Keflex Wednesday and was able to get 3 doses in. That evening, the redness had worsened and he felt worse so he decided to go to [facility] ED. In the ed he had a fever again, but was advised to continue the keflex and he returned home. Today, the redness is well beyond the perdomo from VNS and ED. At that time he was adirectly admitted to [facility] for IV antibiotic management and started on . Per ID note, likely culprit is Strep, on Ancef. Today, Mr Buckner is doing well. Redness has decreased while elevated, returns when down. Continued elevation encouraged. He reports he has had a BM and a shower. Objective Admission Weight: 98.7 kg (217 lb 9.5 oz) BP 106/63 Pulse 82 Temp 36.6 ?C (97.9 ?F) (Oral) Resp 18 Wt 96.6 kg (212 lb 15.4 oz) SpO2 98% BMI 30.56 kg/m? Body surface area is 2.18 meters squared. Min/Max/Average Temperature AND Blood Pressure: Temp (24hrs), Av.8 ?C (98.2 ?F), Min:36.6 ?C (97.9 ?F), Max:36.9 ?C (98.4 ?F) Systolic (24hrs), Av , Min:106 , Max:121 Diastolic (24hrs), Av, Min:58, Max:97 Intake/Output Summary (Last 24 hours) at 05/02/18 0806 Last data filed at 05/01/18 2200 Gross per 24 hour Intake 290 ml Output 1000 ml Net -710 ml TELEMETRY: normal sinus rhythm PHYSICAL EXAM: General Appearance: well developed and no distress Skin: Midsternal incision dry AND intact., SVG incisions dry AND intact. and Left LE red and swelling decreased Lungs: clear and respiratory effort: normal Heart: S1, S2 normal Peripheral Vascular/Arteries: pulses intact Abdomen: soft, round and bowel sounds present Neurologic/Psychiatric: oriented to time, place and person Extremities: normal exam of the extremities and no edema Lines, Drains, and Airways Line Peripheral 04/28/18 1755 Short Right Forearm 20 Gauge 3 days DATA: Diagnostic tests reviewed for today's visit: Significant Lab Results: As Below Chest X-RAY: Clear Recent Labs 05/02/18 0410 04/30/18 0415 RBC 3.61* 3.44* WBC 4.12* 3.47* HB 10.8* 10.3* HCT 33.1* 32.1* PLT 293 266 NA 138 139 K 3.8 3.8 CHLOR 102 105 CO2 26 24 BUN 21* 17 CREAT 1.00 0.90 GLUC 136* 89 CA 8.9 9.0 ANION 14 14 Assessment/Plan cellulitis after surgery POA: Yes -exam the LLL, reduced redness -c/w IV ABX Ancef -ID on consult - Not likely associated with GSV incisions per ID -Seroma hematoma at medial kneed site - low suspicion for infection. -U/S for fluid collection at site of cellulitis. ? NSTEMI S/P CABG x 4 -c/w current med: ASA, BB, STATIN -walk -CXR reviewed, stable ? PAF -NSR -Amiodarone was previously stopped DISPO: Home with home health care when transition to Oral Abx per ID Tests/Labs Ordered: 1. None SIGNATURE: Jazlyn Galicia APRN.CNP PATIENT NAME: Carlos Buckner DATE: May 02, 2018 TIME: 8:06 AM PAGER/CONTACT #: [phone] Patient seen this afternoon. Leg gradually improving. Careplan reviewed with [employer] and later at bedside with patient and hallway with bedside nurse. P-as ordered. HEMOGRAM Collected: 05/02/2018 Status: F Source: [facility] 4:10 AM HEALTH SYSTEM REPOSITORY TYPE CODE TESTS RESULT OUT OF REFERENCE UNITS RANGE LAB WBC(LOINC) 4.23-9.07 thou/cmm Low WBC 4.12 LAB RBC(LOINC) 4.63-6.08 mil/cmm Low RBC 3.61 LAB HGB(LOINC) 13.7-17.5 g/dL Low Hgb 10.8 LAB HCT(LOINC) 40.1-51.0 % Low Hct 33.1 LAB MCV(LOINC) 83.2-95.6 fl MCV 91.7 LAB MCH(LOINC) 25.7-32.2 pg MCH 29.9 LAB MCHC(LOINC) 32.3-36.5 % MCHC 32.6 LAB RDW(LOINC) 11.6-14.4 % RDW 13.5 LAB RDWSD(LOINC 36.1-45.8 fl ) RDW SD 45.8 LAB PLT(LOINC) 141-365 thou/cmm Platelet 293 LAB MPV(LOINC) 8.7-12.0 fl MPV 8.8 Performed By: #### CBC1 #### [facility] [address] [place], [place] [address] BASIC PANEL Collected: 05/02/2018 Status: F Source: [facility] 4:10 AM HEALTH SYSTEM REPOSITORY TYPE CODE TESTS RESULT OUT OF REFERENCE UNITS RANGE LAB NA(LOINC) 136-145 mEq/L Sodium Blood 138 LAB K(LOINC) 3.5-5.1 mEq/L Potassium Blood 3.8 LAB CL(LOINC) 98-107 mEq/L Chloride Blood 102 LAB CO2(LOINC) 21-32 mEq/L CO2 Blood 26 LAB GLU(LOINC) 70-99 mg/dL Glucose High Blood 136 LAB BUN(LOINC) 7-18 mg/dL BUN High Blood 21 LAB CREA(LOINC 0.67-1.17 mg/dL ) Creatinine Blood 1.00 LAB CA(LOINC) 8.5-10.1 mg/dL Calcium Blood 8.9 LAB ANGAP(LOIN 8-16 C) Anion Gap 14 Performed By: #### P8 #### [facility] [address] [id number] PROGRESS Observed: 05/01/2018 Status: COMPLETED Source: [facility] 3:40 PM CLINIC OTHER CAMPUS REPOSITORY HNO ID: [id number] Author: Selvin Muñoz MD Service: Infectious Disease Author Type: Physician Type: Progress Notes Filed: 05/01/2018 3:41 PM Note Text: INFECTIOUS DISEASE PROGRESS NOTE Patient Name: Carlos Buckner ASSESSMENT: ? 1. Left LE Non- purulent Cellulitis, likely Strep > SA 2. S/P CABG 03/28 with Left LE SVG sites - do not appear infected 3. Fever 4. Failed Management Oral ATB 5. DM Type II 6. Ac on Chronic Anemia 7.Thigh fluid collection, clinically low suspicion of infection at this time, post op. Monitor ? RECOMMENDATIONS: Continue Ancef F/U Blood Cx Keep Elevated Follow CBC/ Temps INTERVAL HISTORY: Afebrile, VSS C/o LLE Pain, erythema somewhat improved LLE SVG site clean and dry. No acute events. MEDICATIONS: reviewed. Current hospital medications: insulin glargine 16 Units pen (long acting) (LANTUS SOLOSTAR, BASAGLAR KWIKPEN) 16 Units SUBCUTANEOUS DAILY (8 AM) clopidogrel 75 mg tab(s) (PLAVIX) 75 mg ORAL DAILY bisacodyl EC 10 mg tab(s) (DULCOLAX) 10 mg ORAL ONCE metoprolol tartrate (short acting) 25 mg tab(s) (LOPRESSOR) 25 mg ORAL q 8 H ceFAZolin iv piggyback 1 g in D5W (iso-osmotic) 50 mL (ANCEF) 1 g INTRAVENOUS q 8 H acetaminophen 325-650 mg tab(s) (TYLENOL) 325-650 mg ORAL q 6 H PRN empagliflozin 25 mg tab(s) (JARDIANCE) 25 mg ORAL DAILY metFORMIN 1,000 mg tab(s) (GLUCOPHAGE) 1,000 mg ORAL BID w MEALS atorvastatin 80 mg tab(s) (LIPITOR) 80 mg ORAL DAILY lisinopril 2.5 mg tab(s) 2.5 mg ORAL DAILY insulin lispro 6 Units pen (rapid acting) (HumaLOG KWIKPEN) 6 Units SUBCUTANEOUS w MEALS polyethylene glycol 3350 17 g packet (MIRALAX, GLYCOLAX) 17 g ORAL DAILY senna-docusate 8.6-50 mg 1 tablet (SENNA-S) 1 tablet ORAL BID bisacodyl 10 mg suppository (DULCOLAX) 10 mg RECTAL DAILY PRN melatonin 3 mg tab(s) 3 mg ORAL HS PRN aspirin 81 mg chewable tab(s) 81 mg ORAL DAILY therapeutic multivitamin with iron (THERAGRAN-M) 1 tablet ORAL DAILY heparin 5,000 Units injection 5,000 Units SUBCUTANEOUS q 12 H NaCl 0.9% 3-5 mL 3-5 mL INTRAVENOUS q 12 H oxyCODONE-acetaminophen 5-325 mg 1-2 tablet (PERCOCET) 1-2 tablet ORAL q 4 H PRN dextrose 40 % 15 g 15 g ORAL PRN glucagon 1 mg injection (GLUCAGEN) 1 mg INTRAMUSCULAR PRN dextrose 50% in water 25 mL syringe 12.5 g INTRAVENOUS PRN PHYSICAL EXAM: Vital signs: BP 120/62 Pulse 72 Temp 36.8 ?C (98.2 ?F) (Oral) Resp 18 Wt 98.3 kg (216 lb 11.4 oz) SpO2 95% BMI 31.09 kg/m? Temp (24hrs), Av.8 ?C (98.2 ?F), Min:36.6 ?C (97.9 ?F), Max:37 ?C (98.6 ?F) GEN: Alert, pleasant, NAD HEENT: PERRL, moist oral mucosa, neck supple PULM: CTA bilateral, no rhonchi/wheezes. CV: RRR- midline sternal incision c/d/i GI: soft, non distended, non tender, BSx4 : no weaver, no CVAT EXT: Left lower extremity mild edema, + erythema, no wounds or purulence -- no joint inflammation -- SVG site without s/o infection SKIN: no rash NEURO: no focal deficits, Alert and oriented x3 LINES: PIV sites clean Lab data: reviewed Recent Labs 04/30/18 0415 04/28/18 1755 WBC 3.47* 5.98 HB 10.3* 10.7* PLT 266 223 NA 139 135* K 3.8 3.9 CO2 24 22 BUN 17 23* CREAT 0.90 1.14 Microbiology data: reviewed Imaging data: reviewed Shweta CRAMER [facility] Pager: [phone] April 30, 2018 1:14 PM Seen and examined independently. Agree fully w above notes as documented by the [employer]. Selvin Muñoz MD [phone] 05/01/2018 3:41 PM PROGRESS Observed: 05/01/2018 Status: COMPLETED Source: [facility] 10:32 AM CLINIC OTHER CAMPUS REPOSITORY HNO ID: [id number] Author: Mike Rose Service: Thoracic Surgery Author Type: Physician Type: Progress Notes Filed: 05/01/2018 10:33 AM Note Text: S-leg looks and feels about the same O-no labs and no BM A-stable cellulitis left leg s/p CABG P-as ordered. Observed: 04/30/2018 Status: F Source: [facility] BLOOD 2:32 PM HEALTH SYSTEM REPOSITORY Test performed at [facility] No growth Performed By: #### C_BLO #### [facility] [address] [place] [address] Observed: 04/30/2018 Status: F Source: [facility] BLOOD 2:00 PM HEALTH SYSTEM REPOSITORY Test performed at [facility] No growth Performed By: #### C_BLO #### [facility] [address] [place], [place] [address] PROGRESS Observed: 04/30/2018 Status: COMPLETED Source: [facility] 1:12 PM CLINIC OTHER CAMPUS REPOSITORY HNO ID: [id number] Author: Selvin Muñoz MD Service: Infectious Disease Author Type: Physician Type: Progress Notes Filed: 05/01/2018 3:42 PM Note Text: INFECTIOUS DISEASE PROGRESS NOTE Patient Name: Carlos Buckner Date: 04/30/2018 ASSESSMENT: ? 1. Left LE Non- purulent Cellulitis, likely Strep > SA 2. S/P CABG 03/28 with Left LE SVG sites - do not appear infected 3. Fever 4. Failed Management Oral ATB 5. DM Type II 6. Ac on Chronic Anemia 7.Thigh fluid collection, clinically low suspicion of infection at this time, post op. Monitor ? RECOMMENDATIONS: Continue Ancef F/U Blood Cx Keep Elevated Follow CBC/ Temps INTERVAL HISTORY: Afebrile, VSS C/o LLE Pain, erythema somewhat improved LLE SVG site clean and dry. No acute events. MEDICATIONS: reviewed. Current hospital medications: metoprolol tartrate (short acting) 25 mg tab(s) (LOPRESSOR) 25 mg ORAL q 8 H ceFAZolin iv piggyback 1 g in D5W (iso-osmotic) 50 mL (ANCEF) 1 g INTRAVENOUS q 8 H acetaminophen 325-650 mg tab(s) (TYLENOL) 325-650 mg ORAL q 6 H PRN empagliflozin 25 mg tab(s) (JARDIANCE) 25 mg ORAL DAILY metFORMIN 1,000 mg tab(s) (GLUCOPHAGE) 1,000 mg ORAL BID w MEALS atorvastatin 80 mg tab(s) (LIPITOR) 80 mg ORAL DAILY lisinopril 2.5 mg tab(s) 2.5 mg ORAL DAILY insulin glargine 16 Units pen (long acting) (LANTUS SOLOSTAR, BASAGLAR KWIKPEN) 16 Units SUBCUTANEOUS AT BEDTIME insulin lispro 6 Units pen (rapid acting) (HumaLOG KWIKPEN) 6 Units SUBCUTANEOUS w MEALS polyethylene glycol 3350 17 g packet (MIRALAX, GLYCOLAX) 17 g ORAL DAILY senna-docusate 8.6-50 mg 1 tablet (SENNA-S) 1 tablet ORAL BID bisacodyl 10 mg suppository (DULCOLAX) 10 mg RECTAL DAILY PRN melatonin 3 mg tab(s) 3 mg ORAL HS PRN aspirin 81 mg chewable tab(s) 81 mg ORAL DAILY therapeutic multivitamin with iron (THERAGRAN-M) 1 tablet ORAL DAILY heparin 5,000 Units injection 5,000 Units SUBCUTANEOUS q 12 H NaCl 0.9% 3-5 mL 3-5 mL INTRAVENOUS q 12 H oxyCODONE-acetaminophen 5-325 mg 1-2 tablet (PERCOCET) 1-2 tablet ORAL q 4 H PRN dextrose 40 % 15 g 15 g ORAL PRN glucagon 1 mg injection (GLUCAGEN) 1 mg INTRAMUSCULAR PRN dextrose 50% in water 25 mL syringe 12.5 g INTRAVENOUS PRN PHYSICAL EXAM: Vital signs: BP 103/61 Pulse 60 Temp 36.6 ?C (97.9 ?F) (Oral) Resp 16 Wt 98.2 kg (216 lb 9.6 oz) SpO2 96% BMI 31.08 kg/m? Temp (24hrs), Av.8 ?C (98.2 ?F), Min:36.6 ?C (97.9 ?F), Max:37 ?C (98.6 ?F) GEN: Alert, pleasant, NAD HEENT: PERRL, moist oral mucosa, neck supple PULM: CTA bilateral, no rhonchi/wheezes. CV: RRR- midline sternal incision c/d/i GI: soft, non distended, non tender, BSx4 : no weaver, no CVAT EXT: Left lower extremity mild edema, + erythema, no wounds or purulence -- no joint inflammation -- SVG site without s/o infection SKIN: no rash NEURO: no focal deficits, Alert and oriented x3 LINES: PIV sites clean Lab data: reviewed Recent Labs 04/30/18 0415 04/28/18 1755 WBC 3.47* 5.98 HB 10.3* 10.7* PLT 266 223 NA 139 135* K 3.8 3.9 CO2 24 22 BUN 17 23* CREAT 0.90 1.14 Microbiology data: reviewed Imaging data: reviewed Shweta CRAMER [facility] Pager: [phone] April 30, 2018 1:14 PM Seen and examined independently. Agree fully w above notes as documented by the [employer]. Selvin Muñoz MD [phone] 04/30/2018 3:41 PM PROGRESS Observed: 04/30/2018 Status: COMPLETED Source: [facility] 11:00 AM [facility] REPOSITORY HNO ID: [id number] Author: Mike Rose Service: Thoracic Surgery Author Type: Physician Type: Progress Notes Filed: 04/30/2018 11:01 AM Note Text: S-leg still hurts O-looks a little better. Temp OK A-improving cellulitis L leg P-as ordered. Encourage ambulation. Atb per ID. NURSING PROG Observed: 04/30/2018 Status: COMPLETED Source: [facility] 6:05 AM [facility] REPOSITORY HNO ID: [id number] Author: Salud (Rn) KENYETTA Ward Service: (none) Author Type: Registered Nurse Type: Nursing Progress Note Filed: 04/30/2018 6:06 AM Note Text: Nursing Progress Note Patient Name: Carlos Buckner Patient Location: [place] [address] [address]* Patient BP 101/48 and running in low 100s all night. Dr. Rose notified. Metoprolol changed to 25 mg Q8. This note was completed by: Salud Ward RN HEMOGRAM/DIFF Collected: 04/30/2018 Status: F Source: [facility] 4:15 AM HEALTH SYSTEM REPOSITORY TYPE CODE TESTS RESULT OUT OF REFERENCE UNITS RANGE LAB WBC(LOINC) 4.23-9.07 thou/cmm Low WBC 3.47 LAB RBC(LOINC) 4.63-6.08 mil/cmm Low RBC 3.44 LAB HGB(LOINC) 13.7-17.5 g/dL Low Hgb 10.3 LAB HCT(LOINC) 40.1-51.0 % Low Hct 32.1 LAB MCV(LOINC) 83.2-95.6 fl MCV 93.3 LAB MCH(LOINC) 25.7-32.2 pg MCH 29.9 LAB MCHC(LOINC 32.3-36.5 % ) Low MCHC 32.1 LAB RDW(LOINC) 11.6-14.4 % RDW 13.8 LAB RDWSD(LOIN 36.1-45.8 fl C) RDW SD High 47.1 LAB PLT(LOINC) 141-365 thou/cmm Platelet 266 LAB MPV(LOINC) 8.7-12.0 fl MPV 8.9 LAB SEG(LOINC) % Seg Neutrophil 56.2 LAB IGRE(LOINC % ) Immature Grans 0.30 LAB LYMPH(LOIN % C) Lymphocyte 24.8 LAB MNO(LOINC) % Monocyte 13.5 LAB EOSIN(LOIN % C) Eosinophil 4.6 LAB BASO(LOINC % ) Basophil 0.6 LAB SEGN(LOINC 1.78-5.38 thou/cmm ) Abs. Neut (ANC) 1.95 LAB IGAB(LOINC 0.00-0.05 thou/cmm ) Abs Immature Grans 0.01 LAB LYMN(LOINC 0.84-2.85 thou/cmm ) Abs. Lymph 0.86 LAB MONON(LOIN 0.30-0.82 thou/cmm C) Abs. Lander 0.47 LAB EOSN(LOINC 0.04-0.54 thou/cmm ) Abs. Eosin 0.16 LAB BASON(LOIN 0.01-0.08 thou/cmm C) Abs. Baso 0.02 Performed By: #### CBCD1 #### [facility] [address] [place] [address] BASIC PANEL Collected: 04/30/2018 Status: F Source: [facility] 4:15 AM HEALTH SYSTEM REPOSITORY TYPE CODE TESTS RESULT OUT OF REFERENCE UNITS RANGE LAB NA(LOINC) 136-145 mEq/L Sodium Blood 139 LAB K(LOINC) 3.5-5.1 mEq/L Potassium Blood 3.8 LAB CL(LOINC) 98-107 mEq/L Chloride Blood 105 LAB CO2(LOINC) 21-32 mEq/L CO2 Blood 24 LAB GLU(LOINC) 70-99 mg/dL Glucose Blood 89 LAB BUN(LOINC) 7-18 mg/dL BUN Blood 17 LAB CREA(LOINC 0.67-1.17 mg/dL ) Creatinine Blood 0.90 LAB CA(LOINC) 8.5-10.1 mg/dL Calcium Blood 9.0 LAB ANGAP(LOIN 8-16 C) Anion Gap 14 Performed By: #### P8 #### [place] [address] NURSING PROG Observed: 04/29/2018 Status: COMPLETED Source: [facility] 4:14 PM [facility] [place] REPOSITORY HNO ID: [id number] Author: Olinda (Rn) KENYETTA Newman Service: Nursing Author Type: Registered Nurse Type: Nursing Progress Note Filed: 04/29/2018 4:15 PM Note Text: Received report from KENYETTA Rao CONSULT Observed: 04/29/2018 Status: COMPLETED Source: [facility] 10:11 AM [facility] OTHER [place] REPOSITORY HNO ID: [id number] Author: Nell Davey Service: Infectious Disease Author Type: Physician Type: Consults Filed: 04/29/2018 2:08 PM Note Text: CONSULT: INFECTIOUS DISEASE SERVICE SERVICE DATE: 04/29/2018 SERVICE TIME: 10:11 AM REASON FOR CONSULT: LLE Cellulitis REQUESTING PHYSICIAN: [place] PRIMARY CARE PHYSICIAN: Rick Camacho MD Subjective Mr. Buckner is a 57 year old male PMHX significant for CAD, HTN, CABG, TEOFILO, DM Type II recent medical history significant for 4 vessel CABG 03/28/18. 04/26 he was seen by [facility] who noted his left LE to be red and edematous associated with fever 100.5. He was placed on oral Keflex, followed up with his PCP 04/28 without improvement clinically, therefore he was directly admitted for further treatment and evaluation. He has left lower extremity SVG sites proximal to the affected area of the leg. On admission he was afebrile, HR 72, BP 95/54. WBC 5.9, LLE US neg for DVT, significant for fluid collection with the distal aspect of the thigh along the expected prior course of the greater saphenous vein, 5 x 1.4 cm, subcutaneous, may represent a seroma, hematoma, or abscess. He was started on Vanc/ Zosyn. ID consulted for further management. Of note; 03/22 MRSA screen neg. 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/28/2018 - Type II or unspecified type diabetes mellitus without mention of complication, not stated as uncontrolled PAST SURGICAL HISTORY Procedure Laterality Date - CABG (4) VEIN GRAFTS AND ARTERIAL GRAFT(S) 03/28/2018 - COLONOSCOP W/ OR W/O [facility] SPEC 01/17/15 Colonoscopy - KIDNEY SURGERY HX - LITHOTRIPSY PROC UNILATERAL 2006 left side done in [place] - PAST SURGICAL HISTORY OF dog bite age 5 - PAST SURGICAL HISTORY OF chainsaw injury FAMILY HISTORY Problem Relation Age of Onset - other (polio) Mother - Emphysema Father - Diabetes Maternal Grandfather - COPD Paternal Grandmother - COPD Paternal Grandfather Social History Substance Use Topics - Smoking status: Never Smoker - Smokeless tobacco: Never Used - Alcohol use No Prescriptions Prior to Admission: ciprofloxacin HCl (CIPRO) 500 mg tablet Take 1 tablet by mouth twice daily for 10 days. Disp: 20 tablet Rfl: 0 lisinopril 2.5 mg tablet Take 1 tablet by mouth once daily. Disp: 30 tablet Rfl: 2 Taking atorvastatin (LIPITOR) 80 mg tablet Take 1 tablet by mouth once daily. Disp: 90 tablet Rfl: 1 Taking acetaminophen (TYLENOL) 325 mg tablet Take 1-2 tablets by mouth every 6 hours as needed for Fever (Temp >38.5C). Disp: Rfl: Taking aspirin 81 mg chewable tablet Take 1 tablet by mouth once daily. Disp: Rfl: Taking bisacodyl (DULCOLAX) 10 mg supp 1 Suppository by RECTAL route once daily as needed. Disp: Rfl: Taking clopidogrel (PLAVIX) 75 mg tablet Take 1 tablet by mouth once daily. Disp: 30 tablet Rfl: 5 Taking melatonin 3 mg tablet Take 1 tablet by mouth at bedtime as needed (insomnia). Disp: Rfl: Taking metoprolol tartrate, short acting, (LOPRESSOR) 50 mg tablet Take 1 tablet by mouth every 8 hours. Disp: 90 tablet Rfl: 2 Taking polyethylene glycol 3350 (MIRALAX, GLYCOLAX) 17 gram packet Take 1 Packet by mouth once daily. Disp: Rfl: Taking senna-docusate (SENNA-S) 8.6-50 mg per tablet Take 1 tablet by mouth twice daily. Disp: Rfl: Taking insulin glargine (LANTUS SOLOSTAR, BASAGLAR KWIKPEN) 100 unit/mL (3 mL) inpn Inject 16 Units subcutaneously every morning. Disp: 15 mL Rfl: 3 Taking insulin lispro (HUMALOG KWIKPEN) 100 unit/mL inpn Inject 6 Units subcutaneously w MEALS. Disp: 15 mL Rfl: 3 Taking Insulin Greenwald, Disposable, (LITE TOUCH INSULIN PEN NEEDLES) 29 gauge x 1/2 ndle For insulin injections 4 times daily Disp: 100 Each Rfl: 3 Taking hjvcnqht-ewb-FY-lycopen-lutein (MEN 50 PLUS MULTIVITAMIN) 300-600-300 mcg tab Take 1 tablet by mouth once daily. Disp: Rfl: Taking empagliflozin (JARDIANCE) 25 mg tablet Take 1 tablet by mouth once daily. Disp: 90 tablet Rfl: 3 Taking blood sugar diagnostic (BLOOD GLUCOSE TEST) test strip Test blood sugar(s) 2x daily. Dx: E11.65. Insulin: No Disp: 100 Strip Rfl: 11 Taking metFORMIN (GLUCOPHAGE) 1,000 mg tablet Take 1 tablet by mouth twice daily with meals. Disp: 180 tablet Rfl: 3 Taking Blood-Glucose Meter monitoring kit Glucose Meter of Choice - Kit - Dx: Type 2 DM - Uncontrolled E11.65 (per insurance) Disp: 1 Each Rfl: 0 Taking Lancets lancets Test blood sugar(s) 2x daily. Dx: E11.65. Insulin: No Disp: 100 Each Rfl: 11 Taking COMPOUNDED PRESCRIPTION CPAP @ 8 cm of water with humidification. Mask (per patient preference) optional chin strap (if indicated) , filters, tubing, humidifier and lifetime supplies. Dx. TEOFILO 327.23 Disp: 1 Device Rfl: 0 Taking Current hospital medications: acetaminophen 325-650 mg tab(s) (TYLENOL) 325-650 mg ORAL q 6 H PRN empagliflozin 25 mg tab(s) (JARDIANCE) 25 mg ORAL DAILY metFORMIN 1,000 mg tab(s) (GLUCOPHAGE) 1,000 mg ORAL BID w MEALS atorvastatin 80 mg tab(s) (LIPITOR) 80 mg ORAL DAILY lisinopril 2.5 mg tab(s) 2.5 mg ORAL DAILY metoprolol tartrate (short acting) 50 mg tab(s) (LOPRESSOR) 50 mg ORAL q 8 H insulin glargine 16 Units pen (long acting) (LANTUS SOLOSTAR, BASAGLAR KWIKPEN) 16 Units SUBCUTANEOUS AT BEDTIME insulin lispro 6 Units pen (rapid acting) (HumaLOG KWIKPEN) 6 Units SUBCUTANEOUS w MEALS polyethylene glycol 3350 17 g packet (MIRALAX, GLYCOLAX) 17 g ORAL DAILY senna-docusate 8.6-50 mg 1 tablet (SENNA-S) 1 tablet ORAL BID bisacodyl 10 mg suppository (DULCOLAX) 10 mg RECTAL DAILY PRN melatonin 3 mg tab(s) 3 mg ORAL HS PRN aspirin 81 mg chewable tab(s) 81 mg ORAL DAILY therapeutic multivitamin with iron (THERAGRAN-M) 1 tablet ORAL DAILY heparin 5,000 Units injection 5,000 Units SUBCUTANEOUS q 12 H NaCl 0.9% 3-5 mL 3-5 mL INTRAVENOUS q 12 H oxyCODONE-acetaminophen 5-325 mg 1-2 tablet (PERCOCET) 1-2 tablet ORAL q 4 H PRN dextrose 40 % 15 g 15 g ORAL PRN glucagon 1 mg injection (GLUCAGEN) 1 mg INTRAMUSCULAR PRN dextrose 50% in water 25 mL syringe 12.5 g INTRAVENOUS PRN vancomycin iv piggyback 1 g in D5W 200 mL (VANCOCIN) 1 g INTRAVENOUS q 12 HR piperacillin-tazobactam iv piggyback 3.375 g in dextrose (iso- osmotic) 50 mL (ZOSYN) 3.375 g INTRAVENOUS q 6 H Allergies As of Date: 04/28/2018 Allergen Noted Reaction OYSTERS 06/30/2014 Rash and Itching SHELLFISH CONTAINING PRODUCTS 03/19/2018 Rash Fully Assessed 04/28/2018 COMPLETE REVIEW OF SYSTEMS: 10 point ROS complete, negative unless otherwise stated. C/o left lower extremity redness and pain Fevers resolved, no dyspnea, n/v/d. Objective PHYSICAL EXAM: Temp (24hrs), Av.6 ?C (97.8 ?F), Min:36.3 ?C (97.3 ?F), Max:36.8 ?C (98.2 ?F) GEN: Alert, pleasant, NAD HEENT: PERRL, moist oral mucosa, neck supple PULM: CTA bilateral, no rhonchi/wheezes. CV: RRR- midline sternal incision c/d/i GI: soft, non distended, non tender, BSx4 : no weaver, no CVAT EXT: Left lower extremity mild edema, + erythema, no wounds or purulence -- no joint inflammation -- SVG site without s/o infection SKIN: no rash NEURO: no focal deficits, Alert and oriented x3 LINES: PIV sites clean Body mass index is 31.22 kg/m?. DATA: Diagnostic tests reviewed for today's visit: Recent Labs 04/28/18 1755 WBC 5.98 HB 10.7* PLT 223 NA 135* K 3.9 CO2 22 BUN 23* CREAT 1.14 MICROBIOLOGY: reviewed IMAGES: reviewed LLE US IMPRESSION: ? Negative for left lower extremity DVT ? There is a fluid collection within the distal aspect of the thigh along the expected prior course of the greater saphenous vein. ?This measures up to?5 cm in length and 1.4 cm in thickness. ?This is within the superficial subcutaneous soft tissues. ?This may represent a seroma, hematoma or abscess. ?The sterilely of the fluid is indeterminate by ultrasound. Impression/Recommendations IMPRESSION: 1. Left LE Non- purulent Cellulitis, likely Strep > SA 2. S/P CABG 03/28 with Left LE SVG sites - do not appear infected 3. Fever 4. Failed Management Oral ATB 5. DM Type II 6. Ac on Chronic Anemia 7.Thigh fluid collection, clinically low suspicion of infection at this time, post op. Monitor RECOMMENDATIONS: DC Vanc/ Zosyn Begin Ancef Check Blood Cx x 2 Keep Elevated Follow CBC/ Temps SIGNATURE: Shweta Villareal APRN.CNP PATIENT NAME: Carlos Buckner DATE: April 29, 2018 TIME: 10:11 AM PAGER: [phone] Thank you for the consult. We will continue to follow the patient with you. Please call for any questions or concerns. Have seen and evaluated. Agree with above unless otherwise noted Nell Davey MD PROGRESS Observed: 04/29/2018 Status: COMPLETED Source: [facility] 10:00 AM CLINIC OTHER CAMPUS REPOSITORY HNO ID: [id number] Author: Maira Acosta) KENYETTA Bedolla Service: Nursing Author Type: Registered Nurse Type: Progress Notes Filed: 04/29/2018 11:02 AM Note Text: Informed cardiothoracic WASTE AND BATTING WASTE CHOPPER that patient's BP is 91/52. Accounting Bookkeeper states to hold lisinopril til this afternoon to reassess BP. Will continue to monitor. Also informed WASTE AND BATTING WASTE CHOPPER that patient's I.D. Consult had to be switched to dr mcadams due to insurance reasons. PROGRESS Observed: 04/29/2018 Status: COMPLETED Source: [facility] 9:54 AM CLINIC OTHER CAMPUS REPOSITORY HNO ID: [id number] Author: Mike Rose Service: Cardiovascular Surgery Author Type: Physician Type: Progress Notes Filed: 04/29/2018 4:29 PM Note Text: CARDIOTHORACIC SURGERY POSTOP PROGRESS NOTE SERVICE DATE: 04/29/2018 SERVICE TIME: 9:55 AM Subjective S/P SURGERY: CABGX4 (QUIJANO-LAD; SVG-Diag; SVG-OM; SVG-PLB) DATE OF SURGERY: 03/28/2018 POSTOP DAY #32 LOS: 1 HPI: Mr. Gonzalez is a 57 yo patient with PMH of NSTEMI s/p CABG X4 (QUIJANO-LAD; SVG-Diag; SVG-OM; SVG-PLB) on 03/28/[address] Rose, who returned to CTS office for left leg cellulitis evaluation on 04/28 after initial treatment with Keflex three days prior, patient was able to take a bout 3 doses prior to the visit. He reported with worsening on his cellulitis. 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 Rose decided patient is needed to be admitted to Inpatient with IV ABX management given impression of patient did not respond to the initial PO ABX in the setting of DM. Of note, his post-op recovery was complicated by respiratory distress and a brief episode of PAF resolved with PO amiodarone. He was discharged to home on POD 04/05/2018. INTERVAL EVENTS / PERTINENT ROS: patient is seen today. He is resting in bed, NAD. He denied fever/chills. Denied N/V or any bowel issues such as: Constipation/diarrhea. Per nursing report that patient is hypotensive but asymptomatic. 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 Objective Admission Weight: 98.7 kg (217 lb 9.5 oz) BP 115/68 Pulse 76 Temp 36.8 ?C (98.2 ?F) (Oral) Resp 18 Wt 98.7 kg (217 lb 9.5 oz) SpO2 95% BMI 31.22 kg/m? Body surface area is 2.21 meters squared. Min/Max/Average Temperature AND Blood Pressure: Temp (24hrs), Av.6 ?C (97.8 ?F), Min:36.3 ?C (97.3 ?F), Max:36.8 ?C (98.2 ?F) Systolic (24hrs), Av , Min:95 , Max:115 Diastolic (24hrs), Av, Min:54, Max:68 Intake/Output Summary (Last 24 hours) at 04/29/18 0955 Last data filed at 04/29/18 0800 Gross per 24 hour Intake 740 ml Output 0 ml Net 740 ml TELEMETRY: normal sinus rhythm PHYSICAL EXAM: General Appearance: well developed and no distress Skin: Midsternal incision dry AND intact., SVG incisions dry AND intact. and noted the redness is reduced and is within the marking. Lungs: clear and respiratory effort: normal Heart: regular rhythm, S1, S2 normal and no murmur Peripheral Vascular/Arteries: pulses intact, dorsalis pedis +2 and radial +2 Abdomen: soft, non-tender and bowel sounds present Genitourinary: voiding without difficulty Extremities: edema: Trace, 1+, LLL Lines, Drains, and Airways Line Peripheral 04/28/18 1755 Short Right Forearm 20 Gauge less than 1 day DATA: Diagnostic tests reviewed for today's visit: Significant Lab Results: labs reviewed Chest X-RAY 04/29: Lines, tubes, and devices: ?None. ? Lungs and pleura: ?Mild residual subsegmental atelectasis or scarring of the left midlung region. ?No focal consolidation or pleural effusion. ?No pneumothorax. ? Cardiomediastinal silhouette: ?Normal cardiomediastinal silhouette. ? Other: ? Bony thorax is unremarkable for the patient's age. ? ? IMPRESSION: ? Minimal residual left midlung atelectasis. ?Otherwise unremarkable. US of LL 04/28: IMPRESSION: ? Negative for left lower extremity DVT ? There is a fluid collection within the distal aspect of the thigh along the expected prior course of the greater saphenous vein. ?This measures up to?5 cm in length and 1.4 cm in thickness. ?This is within the superficial subcutaneous soft tissues. ?This may represent a seroma, hematoma or abscess. ?The sterilely of the fluid is indeterminate by ultrasound. Recent Labs 04/28/18 1755 RBC 3.46* WBC 5.98 HB 10.7* HCT 32.7* PLT 223 NA 135* K 3.9 CHLOR 99 CO2 22 BUN 23* CREAT 1.14 GLUC 245* CA 9.1 ANION 18* Assessment/Plan Active Problems: Wound cellulitis after surgery POA: Yes -exam the LLL, reduced redness -c/w IV ABX -ID on consult NSTEMI S/P CABG x 4 -c/w current med: ASA, BB, STATIN -stop Plavix for now d/t concern of bleeding risk in the leg -walk -CXR reviewed, stable PAF -currently in NSR per Tele -Stop Amiodarone and Plavix Tests/Labs Ordered: 1. BMP 2. CBC SIGNATURE: Alex Ortega APRN.WOODWORKING BENCH CARPENTER PATIENT NAME: Carlos Buckner DATE: April 29, 2018 TIME: 9:55 AM PAGER/CONTACT #:[phone] [phone] Patient seen. Antibiotics per ID. Feels same to him, but proximals red today. P-as ordered. 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 yes Advance Directive: Current Advance Directive: Health Care Power of Xm1 Tank Driver;Living Will In Chart: Yes Up To Date and Valid: Yes Health Literacy: 1. How often do you need to have someone help you when you read instructions, pamphlets, or other written material from your doctor or pharmacy? Rarely - 2 2. How confident are you filling out medical forms by yourself? Quite a bit - 2 If Patient scores > 3 on either question, the following interventions were put into place: Patient did not score > 3 FUNCTIONAL AND COGNITIVE/BEHAVIORAL PRIOR TO ADMISSION: Baseline Mental Status: Alert AND Oriented, Person, Place , Time and Situation Functional Status: Independent Does Patient Currently Receive Any Community Services or Home Care? Home Health Care Agency: [facility]; ; Active. Equipment Prior to Admission: Bi-level Positive Airway Pressure/Continuous Positive Airway Pressure Has the Patient Been in a Shelter Facility in the Past 30 days? 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 No Caregiver Needed Patient's transition needs and plan for meeting these needs: Home with [facility] Does the patient have an acute stroke diagnosis, or has the patient had a stroke during this admission? No Medication Adherence: I am convinced of the importance of my prescription medication: Agree mostly - 0 I worry that my prescription medication will do more harm than good to me Disagree mostly - 0 I feel financially burdened by my [id number] expenses for my prescription medication: Disagree mostly -0 Patient is categorized as low risk < 2 Are you interested in bedside delivery of your medications? No Food Concerns: In the Last Month, Have You had Trouble Getting Food? No trouble getting food During the Last Month, Have You Worried Whether Your Food Would Run Out Before You Had Enough Money to Buy More? No Is the Patient Psychosocially Complex? No ASSESSMENT AND PLAN: Medical Needs: 2 or more chronic diseases Psychosocial Needs: None FREEDOM OF CHOICE EXPLAINED: Financial Disclosure Provided Preference: [facility] POTENTIAL TRANSITION PLANS Home with [facility] From home with . Just discharged 04/05 after CABG and readmitted with leg cellulitis. Discharge plan is home with [facility] when medically stable. [facility] referral made. SIGNATURE: Rimma Kim RN PATIENT NAME: Carlos Buckner DATE: April 29, 2018 TIME: 9:46 AM PAGER/CONTACT #: [phone] NURSING PROG Observed: 04/28/2018 Status: COMPLETED Source: [facility] 10:00 PM CLINIC OTHER CAMPUS REPOSITORY HNO ID: [id number] Author: Salud (Rn) KENYETTA Ward Service: (none) Author Type: Registered Nurse Type: Nursing Progress Note Filed: 04/28/2018 10:01 PM Note Text: Nursing Progress Note Patient Name: Carlos Buckner Patient Location: [place] [address] [address]* Patient refusing SCDs and SHAI hose This note was completed by: Salud Ward RN CHEST 2 VIEWS Observed: 04/28/2018 Status: F Source: [facility] 6:43 PM HEALTH SYSTEM REPOSITORY Performed at [facility] APPROVED BY: Dariel Jaramillo MD EXAMINATION: CHEST RADIOGRAPH (2 VIEW FRONTAL & LATERAL) Indication: Recent CABG; wound cellulitis M: XC2_3 Comparison: Chest x-ray 04/04/2018 RESULT: Lines, tubes, and devices: None. Lungs and pleura: Mild residual subsegmental atelectasis or scarring of the left midlung region. No focal consolidation or pleural effusion. No pneumothorax. Cardiomediastinal silhouette: Normal cardiomediastinal silhouette. Other: Bony thorax is unremarkable for the patient's age. IMPRESSION: Minimal residual left midlung atelectasis. Otherwise unremarkable. HEMOGRAM Collected: 04/28/2018 Status: F Source: [facility] 5:55 PM HEALTH SYSTEM REPOSITORY TYPE CODE TESTS RESULT OUT OF REFERENCE UNITS RANGE LAB WBC(LOINC) 4.23-9.07 thou/cmm WBC 5.98 LAB RBC(LOINC) 4.63-6.08 mil/cmm Low RBC 3.46 LAB HGB(LOINC) 13.7-17.5 g/dL Low Hgb 10.7 LAB HCT(LOINC) 40.1-51.0 % Low Hct 32.7 LAB MCV(LOINC) 83.2-95.6 fl MCV 94.5 LAB MCH(LOINC) 25.7-32.2 pg MCH 30.9 LAB MCHC(LOINC) 32.3-36.5 % MCHC 32.7 LAB RDW(LOINC) 11.6-14.4 % RDW 14.1 LAB RDWSD(LOINC 36.1-45.8 fl ) High RDW SD 48.6 LAB PLT(LOINC) 141-365 thou/cmm Platelet 223 LAB MPV(LOINC) 8.7-12.0 fl Low MPV 8.5 Performed By: #### CBC1 #### [place] [address] BASIC PANEL Collected: 04/28/2018 Status: F Source: [facility] 5:55 PM HEALTH SYSTEM REPOSITORY TYPE CODE TESTS RESULT OUT OF REFERENCE UNITS RANGE LAB NA(LOINC) 136-145 mEq/L Low Sodium Blood 135 LAB K(LOINC) 3.5-5.1 mEq/L Potassium Blood 3.9 LAB CL(LOINC) 98-107 mEq/L Chloride Blood 99 LAB CO2(LOINC) 21-32 mEq/L CO2 Blood 22 LAB GLU(LOINC) 70-99 mg/dL Glucose High Blood 245 LAB BUN(LOINC) 7-18 mg/dL BUN High Blood 23 LAB CREA(LOINC 0.67-1.17 mg/dL ) Creatinine Blood 1.14 LAB CA(LOINC) 8.5-10.1 mg/dL Calcium Blood 9.1 LAB ANGAP(LOIN 8-16 C) Anion High Gap 18 Performed By: #### P8 #### [place] [address] US DVT LOWER LEFT Observed: 04/28/2018 Status: F Source: [facility] 4:06 PM HEALTH SYSTEM REPOSITORY Performed at [facility] APPROVED BY: Dariel Jaramillo MD EXAM TITLE: VENOUS DUPLEX ULTRASOUND WITH SPECTRAL ANALYSIS OF THE LEFT LOWER EXTREMITIES DATE:04/28/2018 15:31 COMPARISON: None. CLINICAL INDICATION/HISTORY: Swelling and pain; evaluate for abscess; the greater saphenous vein was reportedly removed one month ago for cardiac surgery TECHNIQUE: Scanning, both grayscale with compression and Doppler imaging with spectral analysis and with augmentation maneuver, was performed by the technologist. Images were saved in a permanent archive (PACS) FINDINGS: LEFT LEG: Normal color opacification/flow is present in all of the following observed vessels. COMMON FEMORAL VEIN: Patent FEMORAL VEIN (SUPERFICIAL FEMORAL): Patent POPLITEAL VEIN: Patent TRIFURCATION: Patent CALF VEINS: Patent IMPRESSION: Negative for left lower extremity DVT There is a fluid collection within the distal aspect of the thigh along the expected prior course of the greater saphenous vein. This measures up to 5 cm in length and 1.4 cm in thickness. This is wit hin the superficial subcutaneous soft tissues. This may represent a seroma, hematoma or abscess. The sterilely of the fluid is indeterminate by ultrasound. PROGRESS Observed: 04/28/2018 Status: COMPLETED Source: [facility] 1:12 PM CLINIC OTHER CAMPUS REPOSITORY O ID: [id number] Author: Jazlyn Galicia Service: (none) Author Type: Nurse Practitioner Type: Progress Notes Filed: 04/28/2018 2:03 PM Note Text: HPI: Carlos Buckner is a 57 year old male that returns to the office today for 1 week post-discharge follow up for NSTEMI s/p CABGX4 (QUIJANO-LAD; SVG-Diag; SVG-OM; SVG-PLB) performed on 03/28/2018. His post-operative course was complicated by a brief episode of atrial fibrillation which resolved with amiodarone and concomitant respiratory distress which resolved with the atrial fibrillation. He was discharged home with [facility] on 04/05/2018. 04/26, [facility]NS reached out to this office about concern for red leg. A prescription for keflex was provided at that time. He returns today to follow-up on the red leg. Today, Carlos Buckner, reports that on Wednesday evening he noticed a red spot between the two GSV harvest site. On Wednesday he was febrile 100.4F and [facility]NS saw the red spot and called it into this office. He started the Keflex Wednesday and was able to get 3 doses in. That evening, the redness had worsened and he felt worse so he decided to go to [facility] ED. In the ed he had a fever again, but was advised to continue the keflex and he returned home. Today, the redness is well beyond the perdomo from VNS and ED. Pain: Some, well controlled with tylenol and some Oxycodone CV: (Dizzy, palpitations, BP, Edema) LE edema, otherwise denies SOB/MARTELL: Fever: Denies Diet: Resuming heart healthy Bowel: Normal Activity: Gradually increasing C/O: Red leg Cardiology F/U: Dr Silva Cardiac Rehab: [facility] Subjective: Current Outpatient Prescriptions: cephALEXin (KEFLEX) 500 mg capsule Take 1 capsule by mouth four times daily for 7 days. lisinopril 2.5 mg tablet Take 1 tablet by mouth once daily. atorvastatin (LIPITOR) 80 mg tablet Take 1 tablet by mouth once daily. acetaminophen (TYLENOL) 325 mg tablet Take 1-2 tablets by mouth every 6 hours as needed for Fever (Temp >38.5C). aspirin 81 mg chewable tablet Take 1 tablet by mouth once daily. bisacodyl (DULCOLAX) 10 mg supp 1 Suppository by RECTAL route once daily as needed. clopidogrel (PLAVIX) 75 mg tablet Take 1 tablet by mouth once daily. melatonin 3 mg tablet Take 1 tablet by mouth at bedtime as needed (insomnia). metoprolol tartrate, short acting, (LOPRESSOR) 50 mg tablet Take 1 tablet by mouth every 8 hours. polyethylene glycol 3350 (MIRALAX, GLYCOLAX) 17 gram packet Take 1 Packet by mouth once daily. senna-docusate (SENNA-S) 8.6-50 mg per tablet Take 1 tablet by mouth twice daily. furosemide (LASIX) 20 mg tablet Take 1 tablet by mouth once daily for 5 days. insulin glargine (LANTUS SOLOSTAR, BASAGLAR KWIKPEN) 100 unit/mL (3 mL) inpn Inject 16 Units subcutaneously every morning. insulin lispro (HUMALOG KWIKPEN) 100 unit/mL inpn Inject 6 Units subcutaneously w MEALS. amiodarone (PACERONE) 200 mg tablet Take 1 tablet by mouth as directed. Taper dosing. Take 200mg twice a day for 5 days, then 200mg once a day for 7 days. Insulin Greenwald, Disposable, (LITE TOUCH INSULIN PEN NEEDLES) 29 gauge x 1/2 ndle For insulin injections 4 times daily umcomqam-xsz-AH-lycopen-lutein (MEN 50 PLUS MULTIVITAMIN) 300-600-300 mcg tab Take 1 tablet by mouth once daily. empagliflozin (JARDIANCE) 25 mg tablet Take 1 tablet by mouth once daily. blood sugar diagnostic (BLOOD GLUCOSE TEST) test strip Test blood sugar(s) 2x daily. Dx: E11.65. Insulin: No metFORMIN (GLUCOPHAGE) 1,000 mg tablet Take 1 tablet by mouth twice daily with meals. Blood-Glucose Meter monitoring kit Glucose Meter of Choice - Kit - Dx: Type 2 DM - Uncontrolled E11.65 (per insurance) Lancets lancets Test blood sugar(s) 2x daily. Dx: E11.65. Insulin: No COMPOUNDED PRESCRIPTION CPAP @ 8 cm of water with humidification. Mask (per patient preference) optional chin strap (if indicated) , filters, tubing, humidifier and lifetime supplies. Dx. TEOFILO 327.23 No current facility-administered medications for this visit. 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 - Type II or unspecified type diabetes mellitus without mention of complication, not stated as uncontrolled PAST SURGICAL HISTORY Procedure Laterality Date - CABG (4) VEIN GRAFTS AND ARTERIAL GRAFT(S) 03/28/2018 - COLONOSCOP W/ OR W/O BRSH SPEC 01/17/15 Colonoscopy - KIDNEY SURGERY HX - LITHOTRIPSY PROC UNILATERAL 2006 left side done in [place] - PAST SURGICAL HISTORY OF dog bite age 5 - PAST SURGICAL HISTORY OF chainsaw injury FAMILY HISTORY Problem Relation Age of Onset - other (polio) Mother - Emphysema Father - Diabetes Maternal Grandfather - COPD Paternal Grandmother - COPD Paternal Grandfather Social History Substance Use Topics - Smoking status: Never Smoker - Smokeless tobacco: Never Used - Alcohol use No Review of Systems Constitutional: Positive for weight loss (15 lbs (expected post op).). Negative for chills, fever and malaise/fatigue. HENT: Negative for sore throat. Respiratory: Negative for cough, sputum production, shortness of breath and wheezing. Cardiovascular: Positive for leg swelling (L>R). Negative for chest pain, palpitations, orthopnea, claudication and PND. Gastrointestinal: Negative for abdominal pain, blood in stool, constipation, diarrhea, melena, nausea and vomiting. Genitourinary: Negative for dysuria. Musculoskeletal: Negative for falls and joint pain. Skin: Red area to left LE area of cellulitis marked x 2, expanded beyond perdomo Neurological: Negative for dizziness, tingling, sensory change, focal weakness, weakness and headaches. Endo/Heme/Allergies: Does not bruise/bleed easily. Psychiatric/Behavioral: Negative for depression. The patient has insomnia. Objective: One month post- op Chest X-ray is done and reviewed today. Not done today. Physical Examination: Vitals:BP 120/70 Pulse 78 Resp 16 Ht 5' 10 (1.78m) Wt 221 lb (100.2kg) SpO2 98% BMI 31.71 kg/(m2). BP w/Orthostatic Vitals Date and Time Orthostatic BP Orthostatic Pulse BP Pulse BP Position BP Site BP Cuff Size 04/28/18 1305 -- -- 120/70 78 Sitting Left Arm -- Peak Flow Date and Time PF Resp 04/28/18 1305 -- 16 Last 2 Encounter Wt Readings: Date: Wt: 04/28/2018 221 lb (100.2 kg) 04/12/2018 235 lb (106.6 kg) Physical Exam Constitutional: He is oriented to person, place, and time and well-developed, well-nourished, and in no distress. HENT: Head: Normocephalic. Eyes: Pupils are equal, round, and reactive to light. Cardiovascular: Normal rate, regular rhythm, S1 normal, S2 normal and intact distal pulses. No murmur heard. Pulmonary/Chest: Effort normal and breath sounds normal. Abdominal: Soft. Normal appearance and bowel sounds are normal. Musculoskeletal: Normal range of motion. He exhibits edema. Neurological: He is alert and oriented to person, place, and time. Gait normal. Skin: Skin is warm and intact. Midsternal incision clean dry, well approximated, no redness or drainage - Well healed Sternum is stable Ct Sites Scabbed and healing SVG site clean dry, - Ankle to mid calf large area of cellulitis, beyond marked area Psychiatric: Mood and affect normal. Assessment and Plan: 1. S/P CABG (coronary artery bypass graft) - ICD9: V45.81, ICD10: Z95.1 (primary diagnosis) - Continue Metoprolol, lisinopril, statin - Stop amiodarone 2. Wound cellulitis after surgery - ICD9: 998.59, ICD10: T81.49XA - 9 doses of Keflex with enlarging area of cellulitis - Admission for IV ABX - U/S are to determine if cellulitis or fluid collection Jazlyn Galicia APRN.CNP In summary, Mr Buckner is to be admitted for IV antibiotic management. Electronically signed by Jazlyn Galicia APRN.CNP on April 28, 2018, 1:12 PM Addendum: No beds available at this time. He will receive a call from admitting when a bed becomes available. In the meantime, stop keflex and start ciprofloxacin. Will attempt to U/S left LE for abscess. CNOV Observed: 04/28/2018 Status: COMPLETED Source: [facility] 1:00 PM [facility] OTHER [place] REPOSITORY Office Visit ([facility]ATH[facility]) CARLOS BUCKNER ([id number]) 1960 M Date Time Provider Department 04/28/18 1:00 PM JAZLYN GALICIA During your visit today, we recorded the following information about you: Pulse Respiration Blood pressure Weight 78/minute 16/minute 120/70 100.2 kg Height 1.778 m Jazlyn Galicia APRN.CNP 04/28/2018 2:03 PM Addendum HPI: Carlos Buckner is a 57 year old male that returns to the office today for 1 week post-discharge follow up for NSTEMI s/p CABGX4 (QUIJANO- LAD; SVG-Diag; SVG-OM; SVG-PLB) performed on 03/28/2018. His post-operative course was complicated by a brief episode of atrial fibrillation which resolved with amiodarone and concomitant respiratory distress which resolved with the atrial fibrillation. He was discharged home with [facility] on 04/05/2018. 04/26, [facility] reached out to this office about concern for red leg. A prescription for keflex was provided at that time. He returns today to follow-up on the red leg. Today, Carlos Buckner, reports that on Wednesday evening he noticed a red spot between the two GSV harvest site. On Wednesday he was febrile 100.4F and [facility] saw the red spot and called it into this office. He started the Keflex Wednesday and was able to get 3 doses in. That evening, the redness had worsened and he felt worse so he decided to go to [facility] ED. In the ed he had a fever again, but was advised to continue the keflex and he returned home. Today, the redness is well beyond the perdomo from VNS and ED. Pain: Some, well controlled with tylenol and some Oxycodone CV: (Dizzy, palpitations, BP, Edema) LE edema, otherwise denies SOB/MARTELL: Fever: Denies Diet: Resuming heart healthy Bowel: Normal Activity: Gradually increasing C/O: Red leg Cardiology F/U: Dr Silva Cardiac Rehab: [facility] Subjective: Current Outpatient Prescriptions: cephALEXin (KEFLEX) 500 mg capsule Take 1 capsule by mouth four times daily for 7 days. lisinopril 2.5 mg tablet Take 1 tablet by mouth once daily. atorvastatin (LIPITOR) 80 mg tablet Take 1 tablet by mouth once daily. acetaminophen (TYLENOL) 325 mg tablet Take 1-2 tablets by mouth every 6 hours as needed for Fever (Temp >38.5C). aspirin 81 mg chewable tablet Take 1 tablet by mouth once daily. bisacodyl (DULCOLAX) 10 mg supp 1 Suppository by RECTAL route once daily as needed. clopidogrel (PLAVIX) 75 mg tablet Take 1 tablet by mouth once daily. melatonin 3 mg tablet Take 1 tablet by mouth at bedtime as needed (insomnia). metoprolol tartrate, short acting, (LOPRESSOR) 50 mg tablet Take 1 tablet by mouth every 8 hours. polyethylene glycol 3350 (MIRALAX, GLYCOLAX) 17 gram packet Take 1 Packet by mouth once daily. senna-docusate (SENNA-S) 8.6-50 mg per tablet Take 1 tablet by mouth twice daily. furosemide (LASIX) 20 mg tablet Take 1 tablet by mouth once daily for 5 days. insulin glargine (LANTUS SOLOSTAR, BASAGLAR KWIKPEN) 100 unit/mL (3 mL) inpn Inject 16 Units subcutaneously every morning. insulin lispro (HUMALOG KWIKPEN) 100 unit/mL inpn Inject 6 Units subcutaneously w MEALS. amiodarone (PACERONE) 200 mg tablet Take 1 tablet by mouth as directed. Taper dosing. Take 200mg twice a day for 5 days, then 200mg once a day for 7 days. Insulin Greenwald, Disposable, (LITE TOUCH INSULIN PEN NEEDLES) 29 gauge x 1/2 ndle For insulin injections 4 times daily daefbgtg-wwf-TQ-lycopen-lutein (MEN 50 PLUS MULTIVITAMIN) 300-600-300 mcg tab Take 1 tablet by mouth once daily. empagliflozin (JARDIANCE) 25 mg tablet Take 1 tablet by mouth once daily. blood sugar diagnostic (BLOOD GLUCOSE TEST) test strip Test blood sugar(s) 2x daily. Dx: E11.65. Insulin: No metFORMIN (GLUCOPHAGE) 1,000 mg tablet Take 1 tablet by mouth twice daily with meals. Blood-Glucose Meter monitoring kit Glucose Meter of Choice - Kit - Dx: Type 2 DM - Uncontrolled E11.65 (per insurance) Lancets lancets Test blood sugar(s) 2x daily. Dx: E11.65. Insulin: No COMPOUNDED PRESCRIPTION CPAP @ 8 cm of water with humidification. Mask (per patient preference) optional chin strap (if indicated) , filters, tubing, humidifier and lifetime supplies. Dx. TEOFILO 327.23 No current facility-administered medications for this visit. 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 - Type II or unspecified type diabetes mellitus without mention of complication, not stated as uncontrolled PAST SURGICAL HISTORY Procedure Laterality Date - CABG (4) VEIN GRAFTS AND ARTERIAL GRAFT(S) 03/28/2018 - COLONOSCOP W/ OR W/O [facility] SPEC 01/17/15 Colonoscopy - KIDNEY SURGERY HX - LITHOTRIPSY PROC UNILATERAL 2006 left side done in [place] - PAST SURGICAL HISTORY OF dog bite age 5 - PAST SURGICAL HISTORY OF chainsaw injury FAMILY HISTORY Problem Relation Age of Onset - other (polio) Mother - Emphysema Father - Diabetes Maternal Grandfather - COPD Paternal Grandmother - COPD Paternal Grandfather Social History Substance Use Topics - Smoking status: Never Smoker - Smokeless tobacco: Never Used - Alcohol use No Review of Systems Constitutional: Positive for weight loss (15 lbs (expected post op).). Negative for chills, fever and malaise/fatigue. HENT: Negative for sore throat. Respiratory: Negative for cough, sputum production, shortness of breath and wheezing. Cardiovascular: Positive for leg swelling (L>R). Negative for chest pain, palpitations, orthopnea, claudication and PND. Gastrointestinal: Negative for abdominal pain, blood in stool, constipation, diarrhea, melena, nausea and vomiting. Genitourinary: Negative for dysuria. Musculoskeletal: Negative for falls and joint pain. Skin: Red area to left LE area of cellulitis marked x 2, expanded beyond perdomo Neurological: Negative for dizziness, tingling, sensory change, focal weakness, weakness and headaches. Endo/Heme/Allergies: Does not bruise/bleed easily. Psychiatric/Behavioral: Negative for depression. The patient has insomnia. Objective: One month post- op Chest X-ray is done and reviewed today. Not done today. Physical Examination: Vitals:BP 120/70 Pulse 78 Resp 16 Ht 5' 10 (1.78m) Wt 221 lb (100.2kg) SpO2 98% BMI 31.71 kg/(m2). BP w/Orthostatic Vitals Date and Time Orthostatic BP Orthostatic Pulse BP Pulse BP Position BP Site BP Cuff Size 04/28/18 1305 -- -- 120/70 78 Sitting Left Arm -- Peak Flow Date and Time PF Resp 04/28/18 1305 -- 16 Last 2 Encounter Wt Readings: Date: Wt: 04/28/2018 221 lb (100.2 kg) 04/12/2018 235 lb (106.6 kg) Physical Exam Constitutional: He is oriented to person, place, and time and well-developed, well-nourished, and in no distress. HENT: Head: Normocephalic. Eyes: Pupils are equal, round, and reactive to light. Cardiovascular: Normal rate, regular rhythm, S1 normal, S2 normal and intact distal pulses. No murmur heard. Pulmonary/Chest: Effort normal and breath sounds normal. Abdominal: Soft. Normal appearance and bowel sounds are normal. Musculoskeletal: Normal range of motion. He exhibits edema. Neurological: He is alert and oriented to person, place, and time. Gait normal. Skin: Skin is warm and intact. Midsternal incision clean dry, well approximated, no redness or drainage - Well healed Sternum is stable Ct Sites Scabbed and healing SVG site clean dry, - Ankle to mid calf large area of cellulitis, beyond marked area Psychiatric: Mood and affect normal. Assessment and Plan: 1. S/P CABG (coronary artery bypass graft) - ICD9: V45.81, ICD10: Z95.1 (primary diagnosis) - Continue Metoprolol, lisinopril, statin - Stop amiodarone 2. Wound cellulitis after surgery - ICD9: 998.59, ICD10: T81.49XA - 9 doses of Keflex with enlarging area of cellulitis - Admission for IV ABX - U/S are to determine if cellulitis or fluid collection Jazlyn Galicia APRN.CNP In summary, Mr Buckner is to be admitted for IV antibiotic management. Electronically signed by Jazlyn Galicia APRN.CNP on April 28, 2018, 1:12 PM Addendum: No beds available at this time. He will receive a call from admitting when a bed becomes available. In the meantime, stop keflex and start ciprofloxacin. Will attempt to U/S left LE for abscess. Jazlyn Galicia APRN.CNP 04/28/2018 2:03 PM Signed Addended by: JAZLYN GALICIA CNP on: 04/28/2018 02:03 PM Modules accepted: Orders Jazlyn Galicia APRN.CNP 04/28/2018 2:08 PM Signed Addended by: JAZLYN GALICIA CNP on: 04/28/2018 02:08 PM Modules accepted: Orders Jazlyn Galicia APRN.CNP 04/28/2018 2:14 PM Signed Addended by: JAZLYN GALICIA CNP on: 04/28/2018 02:14 PM Modules accepted: Orders Referring Provider: RICK CAMACHO [[id number]] Allergies As of Date: 04/28/2018 Noted Allergy Reaction OYSTERS 06/30/2014 2 - Rash 9 - Itching SHELLFISH CONTAINING PRODUCTS 03/19/2018 2 - Rash Date Reviewed: 04/28/2018 Reviewed by: Jazlyn Galicia - Fully Assessed Reason for Visit: Post Op [174] Cmt: 03/28/18 CABG Reason For Visit History Recorded Primary Visit Diagnosis:S/P CABG (coronary artery bypass graft) [Z95.1] Other Visit Diagnosis:Wound cellulitis after surgery [T81.49XA] Order(s):ciprofloxacin HCl (CIPRO) 500 mg tabletTake 1 tablet by mouth twice daily for 10 days.Disp: 20 tabletRfl: 0 US DVT LOWER LT [[id number]] Order #: [id number] FUTURE Prescriptions as of 04/28/2018 Sig: LISINOPRIL 2.5 MG TABLET Take 1 tablet by mouth once d* ATORVASTATIN 80 MG TABLET Take 1 tablet by mouth once d* ACETAMINOPHEN 325 MG TABLET Take 1-2 tablets by mouth carissa* ASPIRIN 81 MG CHEWABLE TABLET Take 1 tablet by mouth once d* BISACODYL 10 MG RECTAL SUPPOS* 1 Suppository by RECTAL route* CLOPIDOGREL 75 MG TABLET Take 1 tablet by mouth once d* MELATONIN 3 MG TABLET Take 1 tablet by mouth at bed* METOPROLOL TARTRATE 50 MG TAB* Take 1 tablet by mouth every * POLYETHYLENE GLYCOL 3350 17 G* Take 1 Packet by mouth once d* SENNOSIDES 8.6 MG-DOCUSATE SO* Take 1 tablet by mouth twice * INSULIN GLARGINE (U-100) 100 * Inject 16 Units subcutaneousl* INSULIN LISPRO (U-100) 100 UN* Inject 6 Units subcutaneously* PEN NEEDLE, DIABETIC 29 GAUGE* For insulin injections 4 time* [id number]-NRCFO ACID 300 M* Take 1 tablet by mouth once d* EMPAGLIFLOZIN 25 MG TABLET Take 1 tablet by mouth once d* BLOOD SUGAR DIAGNOSTIC STRIPS Test blood sugar(s) 2x daily.* METFORMIN 1,000 MG TABLET Take 1 tablet by mouth twice * BLOOD-GLUCOSE METER KIT Glucose Meter of Choice - Kit* LANCETS Test blood sugar(s) 2x daily.* COMPOUNDED PRESCRIPTION CPAP @ 8 cm of water with hum* CIPROFLOXACIN 500 MG TABLET Take 1 tablet by mouth twice * Problem List As Of Date 04/28/2018 Noted Resolved Diabetes mellitus (HCC) [E11.9] INVALID FOR*06/30/2014 More... Hyperlipemia [E78.5] INVALID FOR* TEOFILO (obstructive sleep apnea) [G47.33] INVALID FOR* More... DM (diabetes mellitus), type 2, uncontrolled (H*INVALID FOR* Erectile dysfunction associated with type 2 amberly*INVALID FOR* Special screening for malignant neoplasms, colo*INVALID FOR*01/17/2015 Hypertriglyceridemia [E78.1] INVALID FOR* HTN (hypertension) [I10] INVALID FOR* Chest pain [R07.9] INVALID FOR* CAD (coronary artery disease) [I25.10] INVALID FOR* More... ACS (acute coronary syndrome) (HCC) [I24.9] INVALID FOR* More... NSTEMI (non-ST elevated myocardial infarction) *INVALID FOR* More... Malnutrition of mild degree (HCC) [E44.1] INVALID FOR* S/P CABG (coronary artery bypass graft) [Z95.1] INVALID FOR* Prescriptions ordered this encounter Disp Refills Start End CIPROFLOXACIN 500 MG TABLET 20 t* 0 04/28/2018 05/08/2018 Class: Print RX Route: ORAL Sig: Take 1 tablet by mouth twice daily for 10 days. Medications Discontinued During This Encounter furosemide (LASIX) 20 mg tablet 5 ta* 0 04/05/2018 04/28/2018 Class: Print RX Route: ORAL Sig: Take 1 tablet by mouth once daily for 5 days. Disc: Course of therapy completed amiodarone (PACERONE) 200 mg tablet 49 t* 0 04/05/2018 04/28/2018 Class: Print RX Route: ORAL Sig: Take 1 tablet by mouth as directed. Taper dosing. Take 200mg twice a day for 5 days, then 200mg once a day for 7 days. Disc: Course of therapy completed cephALEXin (KEFLEX) 500 mg capsule 28 c* 0 04/26/2018 04/28/2018 Route: ORAL Sig: Take 1 capsule by mouth four times daily for 7 days. Disc: Course of therapy completed Encounter Status:Closed by JAZLYN GALICIA CNP on 04/28/18 HOSP Observed: 04/28/2018 Status: COMPLETED Source: [facility] 12:00 AM CLINIC OTHER CAMPUS REPOSITORY Patient:Carlos Buckner MRN: <[id number]> Height:5' 10(1.778 m) Weight:211 lb (95.709 kg) Outpatient Medications as of 05/05/18: ciprofloxacin HCl (CIPRO) 500 mg tablet lisinopril 2.5 mg tablet atorvastatin (LIPITOR) 80 mg tablet acetaminophen (TYLENOL) 325 mg tablet aspirin 81 mg chewable tablet bisacodyl (DULCOLAX) 10 mg supp clopidogrel (PLAVIX) 75 mg tablet melatonin 3 mg tablet metoprolol tartrate, short acting, (LOPRESSOR) 50 mg tablet polyethylene glycol 3350 (MIRALAX, GLYCOLAX) 17 gram packet senna-docusate (SENNA-S) 8.6-50 mg per tablet insulin glargine (LANTUS SOLOSTAR, BASAGLAR KWIKPEN) 100 unit/mL (3 mL) inpn insulin lispro (HUMALOG KWIKPEN) 100 unit/mL inpn Insulin Greenwald, Disposable, (LITE TOUCH INSULIN PEN NEEDLES) 29 gauge x 1/2 ndle hurpdidh-jzu-OD-lycopen-lutein (MEN 50 PLUS MULTIVITAMIN) 300-600-300 mcg tab empagliflozin (JARDIANCE) 25 mg tablet blood sugar diagnostic (BLOOD GLUCOSE TEST) test strip metFORMIN (GLUCOPHAGE) 1,000 mg tablet Blood-Glucose Meter monitoring kit Lancets lancets COMPOUNDED PRESCRIPTION Admission/Clinic Administered Medications as of 05/05/18: lactated ringers infusion fentaNYL 50 mcg/mL 50 mcg injection (SUBLIMAZE) HYDROmorphone HCl 0.5 mg injection (DILAUDID) oxyCODONE IR 5 mg tab(s) (ROXICODONE) meperidine (PF) 12.5 mg injection (DEMEROL) insulin glargine 16 Units pen (long acting) (LANTUS SOLOSTAR, BASAGLAR KWIKPEN) clopidogrel 75 mg tab(s) (PLAVIX) metoprolol tartrate (short acting) 25 mg tab(s) (LOPRESSOR) ceFAZolin iv piggyback 1 g in D5W (iso-osmotic) 50 mL (ANCEF) acetaminophen 325-650 mg tab(s) (TYLENOL) empagliflozin 25 mg tab(s) (JARDIANCE) metFORMIN 1,000 mg tab(s) (GLUCOPHAGE) atorvastatin 80 mg tab(s) (LIPITOR) lisinopril 2.5 mg tab(s) polyethylene glycol 3350 17 g packet (MIRALAX, GLYCOLAX) senna-docusate 8.6-50 mg 1 tablet (SENNA-S) bisacodyl 10 mg suppository (DULCOLAX) melatonin 3 mg tab(s) aspirin 81 mg chewable tab(s) therapeutic multivitamin with iron (THERAGRAN-M) heparin 5,000 Units injection NaCl 0.9% 3-5 mL oxyCODONE-acetaminophen 5-325 mg 1-2 tablet (PERCOCET) dextrose 40 % 15 g glucagon 1 mg injection (GLUCAGEN) dextrose 50% in water 25 mL syringe Problem List: Hyperlipemia [E78.5] TEOFILO (obstructive sleep apnea) [G47.33] DM (diabetes mellitus), type 2, uncontrolled ([facility]) [E11.65] Erectile dysfunction associated with type 2 diabetes mellitus ([facility]) [E11.69, N52.1] Hypertriglyceridemia [E78.1] HTN (hypertension) [I10] Chest pain [R07.9] CAD (coronary artery disease) [I25.10] ACS (acute coronary syndrome) ([facility]) [I24.9] NSTEMI (non-ST elevated myocardial infarction) ([facility]) [I21.4] S/P CABG (coronary artery bypass graft) [Z95.1] Wound cellulitis after surgery [T81.49XA] Cellulitis, wound, post-operative [T81.49XA] Allergies: Oysters Shellfish Containing Products Date Verified: 05/05/18 Lab Values Lab Value Units Date High Low POTA* 4.0 mEq/L 05/05/2018 5.1 3.5 RANCHO* 32.9 % 05/05/2018 51.0 40.1 Progress Notes (): Salud Ward RN, RN 04/28/2018 10:01 PM Signed Nursing Progress Note Patient Name: Carlos Buckner Patient Location: [id number]* Patient refusing SCDs and SHAI hose This note was completed by: Salud Ward, KENYETTA Kim RN, RN 04/29/2018 10:12 AM Signed CARE MANAGEMENT: ASSESSMENT AND DISCHARGE PLAN SERVICE DATE: 04/29/2018 SERVICE TIME: 9:46 AM PRIMARY CARE PHYSICIAN: Rick Camacho MD ADMISSION STATUS: Inpatient Needs Prior to Discharge: Home Care Order 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 yes Advance Directive: Current Advance Directive: Health Care Power of Xm1 Tank Driver;Living Will In Chart: Yes Up To Date and Valid: Yes Health Literacy: 1. How often do you need to have someone help you when you read instructions, pamphlets, or other written material from your doctor or pharmacy? Rarely - 2 2. How confident are you filling out medical forms by yourself? Quite a bit - 2 If Patient scores > 3 on either question, the following interventions were put into place: Patient did not score > 3 FUNCTIONAL AND COGNITIVE/BEHAVIORAL PRIOR TO ADMISSION: Baseline Mental Status: Alert AND Oriented, Person, Place , Time and Situation Functional Status: Independent Does Patient Currently Receive Any Community Services or Home Care? Home Health Care Agency: [facility]; ; Active. Equipment Prior to Admission: Bi-level Positive Airway Pressure/Continuous Positive Airway Pressure Has the Patient Been in a Shelter Facility in the Past 30 days? 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 No Caregiver Needed Patient's transition needs and plan for meeting these needs: Home with [facility] Does the patient have an acute stroke diagnosis, or has the patient had a stroke during this admission? No Medication Adherence: I am convinced of the importance of my prescription medication: Agree mostly - 0 I worry that my prescription medication will do more harm than good to me Disagree mostly - 0 I feel financially burdened by my lsk-ut-cxxtux expenses for my prescription medication: Disagree mostly -0 Patient is categorized as low risk < 2 Are you interested in bedside delivery of your medications? No Food Concerns: In the Last Month, Have You had Trouble Getting Food? No trouble getting food During the Last Month, Have You Worried Whether Your Food Would Run Out Before You Had Enough Money to Buy More? No Is the Patient Psychosocially Complex? No ASSESSMENT AND PLAN: Medical Needs: 2 or more chronic diseases Psychosocial Needs: None FREEDOM OF CHOICE EXPLAINED: Financial Disclosure Provided Preference: [facility] POTENTIAL TRANSITION PLANS Home with [facility] From home with . Just discharged 04/05 after CABG and readmitted with leg cellulitis. Discharge plan is home with [facility] when medically stable. [facility] referral made. SIGNATURE: Rimma Kim RN PATIENT NAME: Carlos Buckner DATE: April 29, 2018 TIME: 9:46 AM PAGER/CONTACT #: [phone] Mike Rose MD 04/29/2018 4:29 PM Addendum CARDIOTHORACIC SURGERY POSTOP PROGRESS NOTE SERVICE DATE: 04/29/2018 SERVICE TIME: 9:55 AM Subjective S/P SURGERY: CABGX4 (QUIJANO-LAD; SVG-Diag; SVG-OM; SVG-PLB) DATE OF SURGERY: 03/28/2018 POSTOP DAY #32 LOS: 1 HPI: Mr. Gonzalez is a 57 yo patient with PMH of NSTEMI s/p CABG X4 (QUIJANO-LAD; SVG-Diag; SVG-OM; SVG-PLB) on 03/28/[address] Rose, who returned to CTS office for left leg cellulitis evaluation on 04/28 after initial treatment with Keflex three days prior, patient was able to take a bout 3 doses prior to the visit. He reported with worsening on his cellulitis. 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 Rose decided patient is needed to be admitted to Inpatient with IV ABX management given impression of patient did not respond to the initial PO ABX in the setting of DM. Of note, his post-op recovery was complicated by respiratory distress and a brief episode of PAF resolved with PO amiodarone. He was discharged to home on POD 04/05/2018. INTERVAL EVENTS / PERTINENT ROS: patient is seen today. He is resting in bed, NAD. He denied fever/chills. Denied N/V or any bowel issues such as: Constipation/diarrhea. Per nursing report that patient is hypotensive but asymptomatic. 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 Objective Admission Weight: 98.7 kg (217 lb 9.5 oz) BP 115/68 Pulse 76 Temp 36.8 ?C (98.2 ?F) (Oral) Resp 18 Wt 98.7 kg (217 lb 9.5 oz) SpO2 95% BMI 31.22 kg/m? Body surface area is 2.21 meters squared. Min/Max/Average Temperature AND Blood Pressure: Temp (24hrs), Av.6 ?C (97.8 ?F), Min:36.3 ?C (97.3 ?F), Max:36.8 ?C (98.2 ?F) Systolic (24hrs), Av , Min:95 , Max:115 Diastolic (24hrs), Av, Min:54, Max:68 Intake/Output Summary (Last 24 hours) at 04/29/18 0955 Last data filed at 04/29/18 0800 Gross per 24 hour Intake 740 ml Output 0 ml Net 740 ml TELEMETRY: normal sinus rhythm PHYSICAL EXAM: General Appearance: well developed and no distress Skin: Midsternal incision dry AND intact., SVG incisions dry AND intact. and noted the redness is reduced and is within the marking. Lungs: clear and respiratory effort: normal Heart: regular rhythm, S1, S2 normal and no murmur Peripheral Vascular/Arteries: pulses intact, dorsalis pedis +2 and radial +2 Abdomen: soft, non-tender and bowel sounds present Genitourinary: voiding without difficulty Extremities: edema: Trace, 1+, LLL Lines, Drains, and Airways Line Peripheral 04/28/18 1755 Short Right Forearm 20 Gauge less than 1 day DATA: Diagnostic tests reviewed for today's visit: Significant Lab Results: labs reviewed Chest X-RAY 04/29: Lines, tubes, and devices: ?None. ? Lungs and pleura: ?Mild residual subsegmental atelectasis or scarring of the left midlung region. ?No focal consolidation or pleural effusion. ?No pneumothorax. ? Cardiomediastinal silhouette: ?Normal cardiomediastinal silhouette. ? Other: ? Bony thorax is unremarkable for the patient's age. ? ? IMPRESSION: ? Minimal residual left midlung atelectasis. ?Otherwise unremarkable. US of LLL 04/28: IMPRESSION: ? Negative for left lower extremity DVT ? There is a fluid collection within the distal aspect of the thigh along the expected prior course of the greater saphenous vein. ?This measures up to?5 cm in length and 1.4 cm in thickness. ?This is within the superficial subcutaneous soft tissues. ?This may represent a seroma, hematoma or abscess. ?The sterilely of the fluid is indeterminate by ultrasound. Recent Labs 04/28/18 1755 RBC 3.46* WBC 5.98 HB 10.7* HCT 32.7* PLT 223 NA 135* K 3.9 CHLOR 99 CO2 22 BUN 23* CREAT 1.14 GLUC 245* CA 9.1 ANION 18* Assessment/Plan Active Problems: Wound cellulitis after surgery POA: Yes -exam the LLL, reduced redness -c/w IV ABX -ID on consult NSTEMI S/P CABG x 4 -c/w current med: ASA, BB, STATIN -stop Plavix for now d/t concern of bleeding risk in the leg -walk -CXR reviewed, stable PAF -currently in NSR per Tele -Stop Amiodarone and Plavix Tests/Labs Ordered: 1. BMP 2. CBC SIGNATURE: Alex Ortega APRN.JUAN PATIENT NAME: Carlos Buckner DATE: April 29, 2018 TIME: 9:55 AM PAGER/CONTACT #:[phone] Patient seen. Antibiotics per ID. Feels same to him, but proximals red today. P-as ordered. Previous Version Maira Bedolla, RN, RN 04/29/2018 11:02 AM Signed Informed cardiothoracic WASTE AND BATTING WASTE CHOPPER that patient's BP is 91/52. Accounting Bookkeeper states to hold lisinopril til this afternoon to reassess BP. Will continue to monitor. Also informed WASTE AND BATTING WASTE CHOPPER that patient's I.D. Consult had to be switched to dr mcadams due to insurance reasons. Nell Davey MD 04/29/2018 2:08 PM Signed CONSULT: INFECTIOUS DISEASE SERVICE SERVICE DATE: 04/29/2018 SERVICE TIME: 10:11 AM REASON FOR CONSULT: LLE Cellulitis REQUESTING PHYSICIAN: Milton PRIMARY CARE PHYSICIAN: Rick Camacho MD Subjective Mr. Buckner is a 57 year old male PMHX significant for CAD, HTN, CABG, TEOFILO, DM Type II recent medical history significant for 4 vessel CABG 03/28/18. 04/26 he was seen by [facility] who noted his left LE to be red and edematous associated with fever 100.5. He was placed on oral Keflex, followed up with his PCP 04/28 without improvement clinically, therefore he was directly admitted for further treatment and evaluation. He has left lower extremity SVG sites proximal to the affected area of the leg. On admission he was afebrile, HR 72, BP 95/54. WBC 5.9, LLE US neg for DVT, significant for fluid collection with the distal aspect of the thigh along the expected prior course of the greater saphenous vein, 5 x 1.4 cm, subcutaneous, may represent a seroma, hematoma, or abscess. He was started on Vanc/ Zosyn. ID consulted for further management. Of note; 03/22 MRSA screen neg. 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/28/2018 - Type II or unspecified type diabetes mellitus without mention of complication, not stated as uncontrolled PAST SURGICAL HISTORY Procedure Laterality Date - CABG (4) VEIN GRAFTS AND ARTERIAL GRAFT(S) 03/28/2018 - COLONOSCOP W/ OR W/O [facility] SPEC 01/17/15 Colonoscopy - KIDNEY SURGERY HX - LITHOTRIPSY PROC UNILATERAL 2006 left side done in [place] - PAST SURGICAL HISTORY OF dog bite age 5 - PAST SURGICAL HISTORY OF chainsaw injury FAMILY HISTORY Problem Relation Age of Onset - other (polio) Mother - Emphysema Father - Diabetes Maternal Grandfather - COPD Paternal Grandmother - COPD Paternal Grandfather Social History Substance Use Topics - Smoking status: Never Smoker - Smokeless tobacco: Never Used - Alcohol use No Prescriptions Prior to Admission: ciprofloxacin HCl (CIPRO) 500 mg tablet Take 1 tablet by mouth twice daily for 10 days. Disp: 20 tablet Rfl: 0 lisinopril 2.5 mg tablet Take 1 tablet by mouth once daily. Disp: 30 tablet Rfl: 2 Taking atorvastatin (LIPITOR) 80 mg tablet Take 1 tablet by mouth once daily. Disp: 90 tablet Rfl: 1 Taking acetaminophen (TYLENOL) 325 mg tablet Take 1-2 tablets by mouth every 6 hours as needed for Fever (Temp >38.5C). Disp: Rfl: Taking aspirin 81 mg chewable tablet Take 1 tablet by mouth once daily. Disp: Rfl: Taking bisacodyl (DULCOLAX) 10 mg supp 1 Suppository by RECTAL route once daily as needed. Disp: Rfl: Taking clopidogrel (PLAVIX) 75 mg tablet Take 1 tablet by mouth once daily. Disp: 30 tablet Rfl: 5 Taking melatonin 3 mg tablet Take 1 tablet by mouth at bedtime as needed (insomnia). Disp: Rfl: Taking metoprolol tartrate, short acting, (LOPRESSOR) 50 mg tablet Take 1 tablet by mouth every 8 hours. Disp: 90 tablet Rfl: 2 Taking polyethylene glycol 3350 (MIRALAX, GLYCOLAX) 17 gram packet Take 1 Packet by mouth once daily. Disp: Rfl: Taking senna-docusate (SENNA-S) 8.6-50 mg per tablet Take 1 tablet by mouth twice daily. Disp: Rfl: Taking insulin glargine (LANTUS SOLOSTAR, BASAGLAR KWIKPEN) 100 unit/mL (3 mL) inpn Inject 16 Units subcutaneously every morning. Disp: 15 mL Rfl: 3 Taking insulin lispro (HUMALOG KWIKPEN) 100 unit/mL inpn Inject 6 Units subcutaneously w MEALS. Disp: 15 mL Rfl: 3 Taking Insulin Greenwald, Disposable, (LITE TOUCH INSULIN PEN NEEDLES) 29 gauge x 1/2 ndle For insulin injections 4 times daily Disp: 100 Each Rfl: 3 Taking injczmow-kdx-LH-lycopen-lutein (MEN 50 PLUS MULTIVITAMIN) 300-600-300 mcg tab Take 1 tablet by mouth once daily. Disp: Rfl: Taking empagliflozin (JARDIANCE) 25 mg tablet Take 1 tablet by mouth once daily. Disp: 90 tablet Rfl: 3 Taking blood sugar diagnostic (BLOOD GLUCOSE TEST) test strip Test blood sugar(s) 2x daily. Dx: E11.65. Insulin: No Disp: 100 Strip Rfl: 11 Taking metFORMIN (GLUCOPHAGE) 1,000 mg tablet Take 1 tablet by mouth twice daily with meals. Disp: 180 tablet Rfl: 3 Taking Blood-Glucose Meter monitoring kit Glucose Meter of Choice - Kit - Dx: Type 2 DM - Uncontrolled E11.65 (per insurance) Disp: 1 Each Rfl: 0 Taking Lancets lancets Test blood sugar(s) 2x daily. Dx: E11.65. Insulin: No Disp: 100 Each Rfl: 11 Taking COMPOUNDED PRESCRIPTION CPAP @ 8 cm of water with humidification. Mask (per patient preference) optional chin strap (if indicated) , filters, tubing, humidifier and lifetime supplies. Dx. TEOFILO 327.23 Disp: 1 Device Rfl: 0 Taking Current hospital medications: acetaminophen 325-650 mg tab(s) (TYLENOL) 325-650 mg ORAL q 6 H PRN empagliflozin 25 mg tab(s) (JARDIANCE) 25 mg ORAL DAILY metFORMIN 1,000 mg tab(s) (GLUCOPHAGE) 1,000 mg ORAL BID w MEALS atorvastatin 80 mg tab(s) (LIPITOR) 80 mg ORAL DAILY lisinopril 2.5 mg tab(s) 2.5 mg ORAL DAILY metoprolol tartrate (short acting) 50 mg tab(s) (LOPRESSOR) 50 mg ORAL q 8 H insulin glargine 16 Units pen (long acting) (LANTUS SOLOSTAR, BASAGLAR KWIKPEN) 16 Units SUBCUTANEOUS AT BEDTIME insulin lispro 6 Units pen (rapid acting) (HumaLOG KWIKPEN) 6 Units SUBCUTANEOUS w MEALS polyethylene glycol 3350 17 g packet (MIRALAX, GLYCOLAX) 17 g ORAL DAILY senna-docusate 8.6-50 mg 1 tablet (SENNA-S) 1 tablet ORAL BID bisacodyl 10 mg suppository (DULCOLAX) 10 mg RECTAL DAILY PRN melatonin 3 mg tab(s) 3 mg ORAL HS PRN aspirin 81 mg chewable tab(s) 81 mg ORAL DAILY therapeutic multivitamin with iron (THERAGRAN-M) 1 tablet ORAL DAILY heparin 5,000 Units injection 5,000 Units SUBCUTANEOUS q 12 H NaCl 0.9% 3-5 mL 3-5 mL INTRAVENOUS q 12 H oxyCODONE-acetaminophen 5-325 mg 1-2 tablet (PERCOCET) 1-2 tablet ORAL q 4 H PRN dextrose 40 % 15 g 15 g ORAL PRN glucagon 1 mg injection (GLUCAGEN) 1 mg INTRAMUSCULAR PRN dextrose 50% in water 25 mL syringe 12.5 g INTRAVENOUS PRN vancomycin iv piggyback 1 g in D5W 200 mL (VANCOCIN) 1 g INTRAVENOUS q 12 HR piperacillin-tazobactam iv piggyback 3.375 g in dextrose (iso- osmotic) 50 mL (ZOSYN) 3.375 g INTRAVENOUS q 6 H Allergies As of Date: 04/28/2018 Allergen Noted Reaction OYSTERS 06/30/2014 Rash and Itching SHELLFISH CONTAINING PRODUCTS 03/19/2018 Rash Fully Assessed 04/28/2018 COMPLETE REVIEW OF SYSTEMS: 10 point ROS complete, negative unless otherwise stated. C/o left lower extremity redness and pain Fevers resolved, no dyspnea, n/v/d. Objective PHYSICAL EXAM: Temp (24hrs), Av.6 ?C (97.8 ?F), Min:36.3 ?C (97.3 ?F), Max:36.8 ?C (98.2 ?F) GEN: Alert, pleasant, NAD HEENT: PERRL, moist oral mucosa, neck supple PULM: CTA bilateral, no rhonchi/wheezes. CV: RRR- midline sternal incision c/d/i GI: soft, non distended, non tender, BSx4 : no weaver, no CVAT EXT: Left lower extremity mild edema, + erythema, no wounds or purulence -- no joint inflammation -- SVG site without s/o infection SKIN: no rash NEURO: no focal deficits, Alert and oriented x3 LINES: PIV sites clean Body mass index is 31.22 kg/m?. DATA: Diagnostic tests reviewed for today's visit: Recent Labs 04/28/18 1755 WBC 5.98 HB 10.7* PLT 223 NA 135* K 3.9 CO2 22 BUN 23* CREAT 1.14 MICROBIOLOGY: reviewed IMAGES: reviewed LLE US IMPRESSION: ? Negative for left lower extremity DVT ? There is a fluid collection within the distal aspect of the thigh along the expected prior course of the greater saphenous vein. ?This measures up to?5 cm in length and 1.4 cm in thickness. ?This is within the superficial subcutaneous soft tissues. ?This may represent a seroma, hematoma or abscess. ?The sterilely of the fluid is indeterminate by ultrasound. Impression/Recommendations IMPRESSION: 1. Left LE Non- purulent Cellulitis, likely Strep > SA 2. S/P CABG 03/28 with Left LE SVG sites - do not appear infected 3. Fever 4. Failed Management Oral ATB 5. DM Type II 6. Ac on Chronic Anemia 7.Thigh fluid collection, clinically low suspicion of infection at this time, post op. Monitor RECOMMENDATIONS: DC Vanc/ Zosyn Begin Ancef Check Blood Cx x 2 Keep Elevated Follow CBC/ Temps SIGNATURE: Shweta Villareal APRN.CNP PATIENT NAME: Carlos Buckner DATE: April 29, 2018 TIME: 10:11 AM PAGER: [phone] Thank you for the consult. We will continue to follow the patient with you. Please call for any questions or concerns. Have seen and evaluated. Agree with above unless otherwise noted Nell Davey MD Previous Version Olinda Newman, RN, RN 04/29/2018 4:15 PM Signed Received report from KENYETTA Rao, RN, RN 04/30/2018 6:06 AM Signed Nursing Progress Note Patient Name: Carlos Buckner Patient Location: [place] [address] [address]* Patient BP 101/48 and running in low 100s all night. Dr. Rose notified. Metoprolol changed to 25 mg Q8. This note was completed by: KENYETTA Jean Baptiste MD 04/30/2018 11:01 AM Signed S-leg still hurts O-looks a little better. Temp OK A-improving cellulitis L leg P-as ordered. Encourage ambulation. Atb per ID. Selvin Muñoz MD, MD 05/01/2018 3:42 PM Addendum INFECTIOUS DISEASE PROGRESS NOTE Patient Name: Carlos Buckner Date: 04/30/2018 ASSESSMENT: ? 1. Left LE Non- purulent Cellulitis, likely Strep > SA 2. S/P CABG 03/28 with Left LE SVG sites - do not appear infected 3. Fever 4. Failed Management Oral ATB 5. DM Type II 6. Ac on Chronic Anemia 7.Thigh fluid collection, clinically low suspicion of infection at this time, post op. Monitor ? RECOMMENDATIONS: Continue Ancef F/U Blood Cx Keep Elevated Follow CBC/ Temps INTERVAL HISTORY: Afebrile, VSS C/o LLE Pain, erythema somewhat improved LLE SVG site clean and dry. No acute events. MEDICATIONS: reviewed. Current hospital medications: metoprolol tartrate (short acting) 25 mg tab(s) (LOPRESSOR) 25 mg ORAL q 8 H ceFAZolin iv piggyback 1 g in D5W (iso-osmotic) 50 mL (ANCEF) 1 g INTRAVENOUS q 8 H acetaminophen 325-650 mg tab(s) (TYLENOL) 325-650 mg ORAL q 6 H PRN empagliflozin 25 mg tab(s) (JARDIANCE) 25 mg ORAL DAILY metFORMIN 1,000 mg tab(s) (GLUCOPHAGE) 1,000 mg ORAL BID w MEALS atorvastatin 80 mg tab(s) (LIPITOR) 80 mg ORAL DAILY lisinopril 2.5 mg tab(s) 2.5 mg ORAL DAILY insulin glargine 16 Units pen (long acting) (LANTUS SOLOSTAR, BASAGLAR KWIKPEN) 16 Units SUBCUTANEOUS AT BEDTIME insulin lispro 6 Units pen (rapid acting) (HumaLOG KWIKPEN) 6 Units SUBCUTANEOUS w MEALS polyethylene glycol 3350 17 g packet (MIRALAX, GLYCOLAX) 17 g ORAL DAILY senna-docusate 8.6-50 mg 1 tablet (SENNA-S) 1 tablet ORAL BID bisacodyl 10 mg suppository (DULCOLAX) 10 mg RECTAL DAILY PRN melatonin 3 mg tab(s) 3 mg ORAL HS PRN aspirin 81 mg chewable tab(s) 81 mg ORAL DAILY therapeutic multivitamin with iron (THERAGRAN-M) 1 tablet ORAL DAILY heparin 5,000 Units injection 5,000 Units SUBCUTANEOUS q 12 H NaCl 0.9% 3-5 mL 3-5 mL INTRAVENOUS q 12 H oxyCODONE-acetaminophen 5-325 mg 1-2 tablet (PERCOCET) 1-2 tablet ORAL q 4 H PRN dextrose 40 % 15 g 15 g ORAL PRN glucagon 1 mg injection (GLUCAGEN) 1 mg INTRAMUSCULAR PRN dextrose 50% in water 25 mL syringe 12.5 g INTRAVENOUS PRN PHYSICAL EXAM: Vital signs: BP 103/61 Pulse 60 Temp 36.6 ?C (97.9 ?F) (Oral) Resp 16 Wt 98.2 kg (216 lb 9.6 oz) SpO2 96% BMI 31.08 kg/m? Temp (24hrs), Av.8 ?C (98.2 ?F), Min:36.6 ?C (97.9 ?F), Max:37 ?C (98.6 ?F) GEN: Alert, pleasant, NAD HEENT: PERRL, moist oral mucosa, neck supple PULM: CTA bilateral, no rhonchi/wheezes. CV: RRR- midline sternal incision c/d/i GI: soft, non distended, non tender, BSx4 : no weaver, no CVAT EXT: Left lower extremity mild edema, + erythema, no wounds or purulence -- no joint inflammation -- SVG site without s/o infection SKIN: no rash NEURO: no focal deficits, Alert and oriented x3 LINES: PIV sites clean Lab data: reviewed Recent Labs 04/30/18 0415 04/28/18 1755 WBC 3.47* 5.98 HB 10.3* 10.7* PLT 266 223 NA 139 135* K 3.8 3.9 CO2 24 22 BUN 17 23* CREAT 0.90 1.14 Microbiology data: reviewed Imaging data: reviewed Shweta CRAMER [facility] Pager: [phone] April 30, 2018 1:14 PM Seen and examined independently. Agree fully w above notes as documented by the [employer]. Selvin Muñoz MD [phone] 04/30/2018 3:41 PM Previous Version Mike Rose MD 05/01/2018 10:33 AM Signed S-leg looks and feels about the same O-no labs and no BM A-stable cellulitis left leg s/p CABG P-as ordered. Selvin Muñoz MD, MD 05/01/2018 3:41 PM Addendum INFECTIOUS DISEASE PROGRESS NOTE Patient Name: Carlos Buckner ASSESSMENT: ? 1. Left LE Non- purulent Cellulitis, likely Strep > SA 2. S/P CABG 03/28 with Left LE SVG sites - do not appear infected 3. Fever 4. Failed Management Oral ATB 5. DM Type II 6. Ac on Chronic Anemia 7.Thigh fluid collection, clinically low suspicion of infection at this time, post op. Monitor ? RECOMMENDATIONS: Continue Ancef F/U Blood Cx Keep Elevated Follow CBC/ Temps INTERVAL HISTORY: Afebrile, VSS C/o LLE Pain, erythema somewhat improved LLE SVG site clean and dry. No acute events. MEDICATIONS: reviewed. Current hospital medications: insulin glargine 16 Units pen (long acting) (LANTUS SOLOSTAR, BASAGLAR KWIKPEN) 16 Units SUBCUTANEOUS DAILY (8 AM) clopidogrel 75 mg tab(s) (PLAVIX) 75 mg ORAL DAILY bisacodyl EC 10 mg tab(s) (DULCOLAX) 10 mg ORAL ONCE metoprolol tartrate (short acting) 25 mg tab(s) (LOPRESSOR) 25 mg ORAL q 8 H ceFAZolin iv piggyback 1 g in D5W (iso-osmotic) 50 mL (ANCEF) 1 g INTRAVENOUS q 8 H acetaminophen 325-650 mg tab(s) (TYLENOL) 325-650 mg ORAL q 6 H PRN empagliflozin 25 mg tab(s) (JARDIANCE) 25 mg ORAL DAILY metFORMIN 1,000 mg tab(s) (GLUCOPHAGE) 1,000 mg ORAL BID w MEALS atorvastatin 80 mg tab(s) (LIPITOR) 80 mg ORAL DAILY lisinopril 2.5 mg tab(s) 2.5 mg ORAL DAILY insulin lispro 6 Units pen (rapid acting) (HumaLOG KWIKPEN) 6 Units SUBCUTANEOUS w MEALS polyethylene glycol 3350 17 g packet (MIRALAX, GLYCOLAX) 17 g ORAL DAILY senna-docusate 8.6-50 mg 1 tablet (SENNA-S) 1 tablet ORAL BID bisacodyl 10 mg suppository (DULCOLAX) 10 mg RECTAL DAILY PRN melatonin 3 mg tab(s) 3 mg ORAL HS PRN aspirin 81 mg chewable tab(s) 81 mg ORAL DAILY therapeutic multivitamin with iron (THERAGRAN-M) 1 tablet ORAL DAILY heparin 5,000 Units injection 5,000 Units SUBCUTANEOUS q 12 H NaCl 0.9% 3-5 mL 3-5 mL INTRAVENOUS q 12 H oxyCODONE-acetaminophen 5-325 mg 1-2 tablet (PERCOCET) 1-2 tablet ORAL q 4 H PRN dextrose 40 % 15 g 15 g ORAL PRN glucagon 1 mg injection (GLUCAGEN) 1 mg INTRAMUSCULAR PRN dextrose 50% in water 25 mL syringe 12.5 g INTRAVENOUS PRN PHYSICAL EXAM: Vital signs: BP 120/62 Pulse 72 Temp 36.8 ?C (98.2 ?F) (Oral) Resp 18 Wt 98.3 kg (216 lb 11.4 oz) SpO2 95% BMI 31.09 kg/m? Temp (24hrs), Av.8 ?C (98.2 ?F), Min:36.6 ?C (97.9 ?F), Max:37 ?C (98.6 ?F) GEN: Alert, pleasant, NAD HEENT: PERRL, moist oral mucosa, neck supple PULM: CTA bilateral, no rhonchi/wheezes. CV: RRR- midline sternal incision c/d/i GI: soft, non distended, non tender, BSx4 : no weaver, no CVAT EXT: Left lower extremity mild edema, + erythema, no wounds or purulence -- no joint inflammation -- SVG site without s/o infection SKIN: no rash NEURO: no focal deficits, Alert and oriented x3 LINES: PIV sites clean Lab data: reviewed Recent Labs 04/30/18 0415 04/28/18 1755 WBC 3.47* 5.98 HB 10.3* 10.7* PLT 266 223 NA 139 135* K 3.8 3.9 CO2 24 22 BUN 17 23* CREAT 0.90 1.14 Microbiology data: reviewed Imaging data: reviewed Shweta CRAMER [facility] Pager: [phone] April 30, 2018 1:14 PM Seen and examined independently. Agree fully w above notes as documented by the [employer]. Selvin Muñoz MD [phone] 05/01/2018 3:41 PM Previous Version Mike Rose MD 05/02/2018 5:18 PM Addendum CARDIOTHORACIC SURGERY POSTOP PROGRESS NOTE SERVICE DATE: 05/02/2018 SERVICE TIME: 8:07 AM Subjective S/P SURGERY: CABG X 4 (QUIJANO-LAD; SVG-Diag; SVG-OM; SVG-PLB) DATE OF SURGERY: 03/28/2018 POSTOP DAY # >1 month LOS: 4 HPI: Carlos Buckner is a 57 year old male that returns to the office today for 1 week post-discharge follow up for NSTEMI?s/p CABGX4 (QUIJANO- LAD; SVG-Diag; SVG-OM; SVG-PLB)?performed on 03/28/2018. His post-operative course was complicated by a brief episode of atrial fibrillation which resolved with amiodarone and concomitant respiratory distress which resolved with the atrial fibrillation. He was discharged home with [facility] on 04/05/2018. 04/26, VNS reached out to this office about concern for red leg. A prescription for keflex was provided at that time. He returns today to follow-up on the red leg. ? On 04/28/2018, Carlos Buckner returned to the [facility] office in follow-up for complaint of red leg. He reports that on Wednesday evening he noticed a red spot between the two GSV harvest site. On Wednesday he was febrile 100.4F and VNS saw the red spot and called it into this office. He started the Keflex Wednesday and was able to get 3 doses in. That evening, the redness had worsened and he felt worse so he decided to go to [facility] ED. In the ed he had a fever again, but was advised to continue the keflex and he returned home. Today, the redness is well beyond the perdomo from VNS and ED. At that time he was adirectly admitted to [facility] for IV antibiotic management and started on . Per ID note, likely culprit is Strep, on Ancef. Today, Mr Buckner is doing well. Redness has decreased while elevated, returns when down. Continued elevation encouraged. He reports he has had a BM and a shower. Objective Admission Weight: 98.7 kg (217 lb 9.5 oz) BP 106/63 Pulse 82 Temp 36.6 ?C (97.9 ?F) (Oral) Resp 18 Wt 96.6 kg (212 lb 15.4 oz) SpO2 98% BMI 30.56 kg/m? Body surface area is 2.18 meters squared. Min/Max/Average Temperature AND Blood Pressure: Temp (24hrs), Av.8 ?C (98.2 ?F), Min:36.6 ?C (97.9 ?F), Max:36.9 ?C (98.4 ?F) Systolic (24hrs), Av , Min:106 , Max:121 Diastolic (24hrs), Av, Min:58, Max:97 Intake/Output Summary (Last 24 hours) at 05/02/18 0806 Last data filed at 05/01/18 2200 Gross per 24 hour Intake 290 ml Output 1000 ml Net -710 ml TELEMETRY: normal sinus rhythm PHYSICAL EXAM: General Appearance: well developed and no distress Skin: Midsternal incision dry AND intact., SVG incisions dry AND intact. and Left LE red and swelling decreased Lungs: clear and respiratory effort: normal Heart: S1, S2 normal Peripheral Vascular/Arteries: pulses intact Abdomen: soft, round and bowel sounds present Neurologic/Psychiatric: oriented to time, place and person Extremities: normal exam of the extremities and no edema Lines, Drains, and Airways Line Peripheral 04/28/18 1755 Short Right Forearm 20 Gauge 3 days DATA: Diagnostic tests reviewed for today's visit: Significant Lab Results: As Below Chest X-RAY: Clear Recent Labs 05/02/18 0410 04/30/18 0415 RBC 3.61* 3.44* WBC 4.12* 3.47* HB 10.8* 10.3* HCT 33.1* 32.1* PLT 293 266 NA 138 139 K 3.8 3.8 CHLOR 102 105 CO2 26 24 BUN 21* 17 CREAT 1.00 0.90 GLUC 136* 89 CA 8.9 9.0 ANION 14 14 Assessment/Plan cellulitis after surgery POA: Yes -exam the LLL, reduced redness -c/w IV ABX Ancef -ID on consult - Not likely associated with GSV incisions per ID -Seroma hematoma at medial kneed site - low suspicion for infection. -U/S for fluid collection at site of cellulitis. ? NSTEMI S/P CABG x 4 -c/w current med: ASA, BB, STATIN -walk -CXR reviewed, stable ? PAF -NSR -Amiodarone was previously stopped DISPO: Home with home health care when transition to Oral Abx per ID Tests/Labs Ordered: 1. None SIGNATURE: Jazlyn Galicia APRN.JUAN PATIENT NAME: Carlos Buckner DATE: May 02, 2018 TIME: 8:06 AM PAGER/CONTACT #: [phone] Patient seen this afternoon. Leg gradually improving. Careplan reviewed with [employer] and later at bedside with patient and hallway with bedside nurse. P-as ordered. Previous Version Arielle Man RD, RD 05/02/2018 2:40 PM Signed NUTRITION THERAPY SCREENING NOTE SERVICE DATE: 05/02/2018 SERVICE TIME: 12:10 NUTRITION CARE PLAN: Intervention: 1. Encouraged heart-healthy diet Monitor and Evaluation: Goal: Meet >75% of estimated needs Monitor fluid/electrolyte balance Monitor labs, I/Os, vital signs, weight Discharge Nutrition Recommendations: Diet: Heart-healthy Reason for Assessment: Recent diagnosis of malnutrition Per HPI: Mr. Gonzalez is a 57 yo patient with PMH of NSTEMI s/p CABG X4 (QUIJANO-LAD; SVG-Diag; SVG-OM; SVG-PLB) on 03/28/[address] Rose, who returned to [facility] office for left leg cellulitis evaluation on 04/28 after initial treatment with Keflex three days prior, patient was able to take a bout 3 doses prior to the visit. He reported with worsening on his cellulitis. 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 Rose decided patient is needed to be admitted to Inpatient with IV ABX management given impression of patient did not respond to the initial PO ABX in the setting of DM. Of note, his post-op recovery was complicated by respiratory distress and a brief episode of PAF resolved with PO amiodarone. He was discharged to home on POD 04/05/2018. ACTIVE PROBLEM LIST Hyperlipemia Teofilo (Obstructive Sleep Apnea) Dm (Diabetes Mellitus), Type 2, Uncontrolled ([facility]) Erectile Dysfunction Associated With Type 2 Diabetes Mellitus ([facility]) Hypertriglyceridemia Htn (Hypertension) Chest Pain Cad (Coronary Artery Disease) Acs (Acute Coronary Syndrome) ([facility]) Nstemi (Non-St Elevated Myocardial Infarction) ([facility]) Malnutrition of Mild Degree ([facility]) S/P Cabg (Coronary Artery Bypass Graft) Wound Cellulitis After Surgery 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/28/2018 - Type II or unspecified type diabetes mellitus without mention of complication, not stated as uncontrolled PAST SURGICAL HISTORY Procedure Laterality Date - CABG (4) VEIN GRAFTS AND ARTERIAL GRAFT(S) 03/28/2018 - COLONOSCOP W/ OR W/O BRSH SPEC 01/17/15 Colonoscopy - KIDNEY SURGERY HX - LITHOTRIPSY PROC UNILATERAL 2006 left side done in [place] - PAST SURGICAL HISTORY OF dog bite age 5 - PAST SURGICAL HISTORY OF chainsaw injury Current Diet Order DIET HEART HEALTHY Order Specific Question: Heart Healthy Answer: 2 GM SODIUM (<200 MG CHOL / LOW SAT FAT) Lines and Drains: Peripheral 04/28/18 1755 Short Right Forearm 20 Gauge (Active) Nutritional Intake Prior to Admission: >75% estimated energy needs over the past 3 week(s). Per patient, he did not eat great right after surgery, but I did alright at home. States he does not like the food here, ate better at home. Did have some snacks from home at bedside noted (unsalted almonds, a banana). Denies any issues with appetite otherwise. States he has lost weight but that's because my is guarding the goodies! Denies any unintentional weight loss otherwise. GI symptoms: 05/01 Nutrition Abdominal Exam: bowel sounds are normal per nursing flowsheet ANTHROPOMETRICS Height: 177.8 cm (5' 10) Admission Weight: 98.7 kg (217 lb 9.5 oz) Current Weight: 96.6 kg (212 lb 15.4 oz) Body mass index is 30.56 kg/m?. class 1 obesity Weight has decreased voluntarily by 14.4 kg over 1 month representing 13.0% weight, change potentially clinically significant but does not meet criteria to support a malnutrition diagnosis. Some weight change may be fluid-related as well as poor appetite post-surgery combined with dietary compliance/portion control after discharge. Doubt malnutrition-related. Last Wt 05/02/18 : 96.6 kg (212 lb 15.4 oz) - standing weight 04/28/18 : 100.2 kg (221 lb) 04/12/18 : 106.6 kg (235 lb) 04/05/18 : 111 kg (244 lb 11.4 oz) - standing inpatient weight 06/10/17 : 110.2 kg (243 lb) Temperature Max in 24 hours: Temp (24hrs), Av.7 ?C (98.1 ?F), Min:36.6 ?C (97.9 ?F), Max:36.9 ?C (98.4 ?F) BP 115/59 Pulse 71 Temp 36.6 ?C (97.9 ?F) (Oral) Resp 18 Ht 177.8 cm (5' 10) Wt 96.6 kg (212 lb 15.4 oz) SpO2 97% BMI 30.56 kg/m? Recent Labs 05/02/18 0410 GLUC 136* BUN 21* CREAT 1.00 NA 138 K 3.8 CHLOR 102 CO2 26 HB 10.8* HCT 33.1* WBC 4.12* ALLERGIES Allergen Reactions - Oysters Rash, Itching - Shellfish Containin* Rash Current Facility-Administered Medications: insulin glargine 16 Units pen (long acting) (LANTUS SOLOSTAR, BASAGLAR KWIKPEN) 16 Units SUBCUTANEOUS DAILY (8 AM) clopidogrel 75 mg tab(s) (PLAVIX) 75 mg ORAL DAILY metoprolol tartrate (short acting) 25 mg tab(s) (LOPRESSOR) 25 mg ORAL q 8 H ceFAZolin iv piggyback 1 g in D5W (iso-osmotic) 50 mL (ANCEF) 1 g INTRAVENOUS q 8 H acetaminophen 325-650 mg tab(s) (TYLENOL) 325-650 mg ORAL q 6 H PRN empagliflozin 25 mg tab(s) (JARDIANCE) 25 mg ORAL DAILY metFORMIN 1,000 mg tab(s) (GLUCOPHAGE) 1,000 mg ORAL BID w MEALS atorvastatin 80 mg tab(s) (LIPITOR) 80 mg ORAL DAILY lisinopril 2.5 mg tab(s) 2.5 mg ORAL DAILY insulin lispro 6 Units pen (rapid acting) (HumaLOG KWIKPEN) 6 Units SUBCUTANEOUS w MEALS polyethylene glycol 3350 17 g packet (MIRALAX, GLYCOLAX) 17 g ORAL DAILY senna-docusate 8.6-50 mg 1 tablet (SENNA-S) 1 tablet ORAL BID bisacodyl 10 mg suppository (DULCOLAX) 10 mg RECTAL DAILY PRN melatonin 3 mg tab(s) 3 mg ORAL HS PRN aspirin 81 mg chewable tab(s) 81 mg ORAL DAILY therapeutic multivitamin with iron (THERAGRAN-M) 1 tablet ORAL DAILY heparin 5,000 Units injection 5,000 Units SUBCUTANEOUS q 12 H NaCl 0.9% 3-5 mL 3-5 mL INTRAVENOUS q 12 H oxyCODONE-acetaminophen 5-325 mg 1-2 tablet (PERCOCET) 1-2 tablet ORAL q 4 H PRN dextrose 40 % 15 g 15 g ORAL PRN Or glucagon 1 mg injection (GLUCAGEN) 1 mg INTRAMUSCULAR PRN Or dextrose 50% in water 25 mL syringe 12.5 g INTRAVENOUS PRN Date 05/01/18699 - 05/02/1865805/02/18699 - 05/03/18 0659 Shift 2383-8134 9740-3934 5676-7675 24 Hour Total 1253-0392 8664-2129 2068-5786 24 Hour Total I N T A K E PO 240 240 PO 240 240 IV 50 50 Cefazolin IV 50 50 Shift Total 290 290 O U T P U T Urine 1000 1000 Void (ml) 1000 1000 # of BMs Number of BMs 1 x 1 x Shift Total 1000 1000 Weight (kg) 98.3 98.3 98.3 98.3 96.6 96.6 96.6 96.6 Surgical Incision 04/28/18 2246 Chest - Midsternal (Active) Dressing Status None: Open to Air 05/02/2018 9:30 AM Incision Closures None 05/02/2018 9:30 AM Drainage Description None 05/02/2018 9:30 AM Drainage Amount None 05/02/2018 9:30 AM Edges Intact 05/02/2018 9:30 AM Hematoma No 05/02/2018 9:30 AM Number of days: 3 Vitamin and Mineral Labs in the past year:No results for input(s): CHROMIUM, COPPER, MANGANESE, SELENIUM, VITAMINA, VITB1, VITB2, VITB6, B12, METHYLMAL, VITD25, VITAMINE, VITAK, ZINC, TIBC, FE, PHONG in the last 8784 hours. MNT Billing Type: Initial Assess/15 min 2 units SIGNATURE: Arielle Man RD PATIENT NAME: Carlos Buckner DATE: May 02, 2018 TIME: 10:27 AM PAGER: [phone] Nell Davey MD 05/02/2018 12:25 PM Addendum INFECTIOUS DISEASE PROGRESS NOTE Patient Name: Carlos Buckner ASSESSMENT: ? 1. Left LE Non- purulent Cellulitis, likely Strep > SA , ? Infected Fluid collection 2. S/P CABG 03/28 with Left LE SVG sites - do not appear infected 3. Fever resolved 4. Failed Management Oral ATB 5. DM Type II 6. Ac on Chronic Anemia 7.Thigh fluid collection, clinically low suspicion of infection at this time, post op. Monitor ? RECOMMENDATIONS: Continue Ancef Check non-vasc US to evaluate for fluid collection (fluctuant swelling on exam) Keep Elevated Follow CBC/ Temps INTERVAL HISTORY: Afebrile, VSS C/o LLE Pain, erythema/ edema improving. Small central fluctuance noted. LLE SVG site clean and dry. No acute events. MEDICATIONS: reviewed. Current hospital medications: insulin glargine 16 Units pen (long acting) (LANTUS SOLOSTAR, BASAGLAR KWIKPEN) 16 Units SUBCUTANEOUS DAILY (8 AM) clopidogrel 75 mg tab(s) (PLAVIX) 75 mg ORAL DAILY metoprolol tartrate (short acting) 25 mg tab(s) (LOPRESSOR) 25 mg ORAL q 8 H ceFAZolin iv piggyback 1 g in D5W (iso-osmotic) 50 mL (ANCEF) 1 g INTRAVENOUS q 8 H acetaminophen 325-650 mg tab(s) (TYLENOL) 325-650 mg ORAL q 6 H PRN empagliflozin 25 mg tab(s) (JARDIANCE) 25 mg ORAL DAILY metFORMIN 1,000 mg tab(s) (GLUCOPHAGE) 1,000 mg ORAL BID w MEALS atorvastatin 80 mg tab(s) (LIPITOR) 80 mg ORAL DAILY lisinopril 2.5 mg tab(s) 2.5 mg ORAL DAILY insulin lispro 6 Units pen (rapid acting) (HumaLOG KWIKPEN) 6 Units SUBCUTANEOUS w MEALS polyethylene glycol 3350 17 g packet (MIRALAX, GLYCOLAX) 17 g ORAL DAILY senna-docusate 8.6-50 mg 1 tablet (SENNA-S) 1 tablet ORAL BID bisacodyl 10 mg suppository (DULCOLAX) 10 mg RECTAL DAILY PRN melatonin 3 mg tab(s) 3 mg ORAL HS PRN aspirin 81 mg chewable tab(s) 81 mg ORAL DAILY therapeutic multivitamin with iron (THERAGRAN-M) 1 tablet ORAL DAILY heparin 5,000 Units injection 5,000 Units SUBCUTANEOUS q 12 H NaCl 0.9% 3-5 mL 3-5 mL INTRAVENOUS q 12 H oxyCODONE-acetaminophen 5-325 mg 1-2 tablet (PERCOCET) 1-2 tablet ORAL q 4 H PRN dextrose 40 % 15 g 15 g ORAL PRN glucagon 1 mg injection (GLUCAGEN) 1 mg INTRAMUSCULAR PRN dextrose 50% in water 25 mL syringe 12.5 g INTRAVENOUS PRN PHYSICAL EXAM: Vital signs: BP 115/59 Pulse 71 Temp 36.6 ?C (97.9 ?F) (Oral) Resp 18 Ht 177.8 cm (5' 10) Wt 96.6 kg (212 lb 15.4 oz) SpO2 97% BMI 30.56 kg/m? Temp (24hrs), Av.8 ?C (98.2 ?F), Min:36.6 ?C (97.9 ?F), Max:37 ?C (98.6 ?F) GEN: Alert, pleasant, NAD HEENT: PERRL, moist oral mucosa, neck supple PULM: CTA bilateral, no rhonchi/wheezes. CV: RRR- midline sternal incision c/d/i GI: soft, non distended, non tender, BSx4 : no weaver, no CVAT EXT: Left lower extremity mild edema, + erythema, no wounds or purulence, small amount central fluctuance -- no joint inflammation -- SVG site without s/o infection SKIN: no rash NEURO: no focal deficits, Alert and oriented x3 LINES: PIV sites clean Lab data: reviewed Recent Labs 05/02/18 0410 04/30/18 0415 WBC 4.12* 3.47* HB 10.8* 10.3* PLT 293 266 NA 138 139 K 3.8 3.8 CO2 26 24 BUN 21* 17 CREAT 1.00 0.90 Microbiology data: reviewed 04/30 Blood Cx: ngtd MRSA nares neg. Imaging data: reviewed [facility] Pager: [phone] May 02, 2018 11:03 AM Thank you for the consult. We will continue to follow the patient with you. Please call for any questions or concerns. Have seen and evaluated. Agree with above unless otherwise noted Nell Davey MD Previous Version Holly Wolf RN, RN 05/02/2018 12:24 PM Signed CARE MANAGEMENT PROGRESS NOTE SERVICE DATE: 05/02/2018 SERVICE TIME: 1220 LOS: 4 days Needs Prior to Discharge: Home Care Order;IV Antibiotics Chart reviewed. Met w/ patient. Pt is recent CABG 04/05. Active w/ [facility]. Plan is to return HOME at [facility] w/ once medically ready. . Pt states able to transport home. CM to follow. SIGNATURE: Holly Wolf RN PATIENT NAME: Carlos Buckner DATE: May 02, 2018 TIME: 12:20 PM PAGER/CONTACT #: Mike Rose MD 05/03/2018 4:18 PM Addendum CARDIOTHORACIC SURGERY POSTOP PROGRESS NOTE SERVICE DATE: 05/03/2018 SERVICE TIME: 9:35 AM Subjective S/P SURGERY: CABG X 4 (QUIJANO-LAD; SVG-Diag; SVG-OM; SVG-PLB) DATE OF SURGERY: 03/28/2018 POSTOP DAY #>1 month LOS: 5 HPI: Carlos Buckner is a 57 year old male that returns to the office today for 1 Month post-discharge follow up for NSTEMI?s/p CABGX4 (QUIJANO- LAD; SVG-Diag; SVG-OM; SVG-PLB)?performed on 03/28/2018. His post-operative course was complicated by a brief episode of atrial fibrillation which resolved with amiodarone and concomitant respiratory distress which resolved with the atrial fibrillation. He was discharged home with [facility] on 04/05/2018. ?04/26, [facility] reached out to this office about concern for red leg. A prescription for keflex was provided at that time. On 04/28/2018, Carlos Buckner returned to the [facility] office in follow-up for complaint of cellulitis. He reports that on Wednesday evening he noticed a red spot between the two GSV harvest sites. On Wednesday he was febrile 100.4F and [facility] saw the red spot and called it into this office. He started the Keflex Wednesday and was able to get 3 doses in. That evening, the redness had worsened and he felt worse so he decided to go to [facility] ED. In the ed he had a fever again, but was advised to continue the keflex and he returned home. Today, the redness is well beyond the perdomo from [facility] and ED. At that time he was directly admitted to [facility] for IV antibiotic management and started on . Per ID note, likely culprit is Strep, on Ancef IV. Today, Mr Buckner reports he is doing well, looking forward to going home. He reports some pain With ambulation in his LLE. The swelling and redness is much improved, however, there is an evident fluid collection at the site of cellulitis. Objective Admission Weight: 98.7 kg (217 lb 9.5 oz) BP 116/66 Pulse 67 Temp 36.6 ?C (97.9 ?F) (Oral) Resp 16 Ht 177.8 cm (5' 10) Wt 95.8 kg (211 lb 1.6 oz) SpO2 99% BMI 30.29 kg/m? Body surface area is 2.18 meters squared. Min/Max/Average Temperature AND Blood Pressure: Temp (24hrs), Av.8 ?C (98.3 ?F), Min:36.4 ?C (97.5 ?F), Max:37.1 ?C (98.8 ?F) Systolic (24hrs), Av , Min:103 , Max:116 Diastolic (24hrs), Av, Min:48, Max:69 Intake/Output Summary (Last 24 hours) at 05/03/18 0935 Last data filed at 05/02/18 2300 Gross per 24 hour Intake 360 ml Output 0 ml Net 360 ml TELEMETRY: normal sinus rhythm PHYSICAL EXAM: General Appearance: well developed and no distress Skin: Midsternal incision dry AND intact., SVG incisions dry AND intact. and Left LE area of cellulitis is reduced and redness improved, evidnet area of fluid collection Lungs: clear and respiratory effort: normal Heart: regular rhythm and no murmur Peripheral Vascular/Arteries: pulses intact Abdomen: soft, round, non-tender and bowel sounds present Musculoskeletal: no deformities Extremities: normal exam of the extremities Lines, Drains, and Airways Line Peripheral 04/28/18 1755 Short Right Forearm 20 Gauge 4 days DATA: Diagnostic tests reviewed for today's visit: U/S LE fluid collection RESULTS: Targeted scanning demonstrates a mildly heterogeneous hypoechoic fluid collection just deep to the skin surface which is reported by the technologist to be along the left distal leg within a region of vein harvesting. ?This presumably represents a different area than the region which was scanned 5 days ago. ?There is a 3.2 x 0.7 x 1.5 cm mildly complex fluid collection. ? ? IMPRESSION: There is a superficial fluid collection of the distal left leg at an area of prior ?vein harvesting. ?The sterilely of the fluid is indeterminant. ?This may represent seroma, hematoma or abscess. ? This was reported by the technologist to be along the left distal leg/calf. This appears to be different than the area which was previously scanned which was noted ?as distal thigh Recent Labs 05/02/18 0410 RBC 3.61* WBC 4.12* HB 10.8* HCT 33.1* PLT 293 NA 138 K 3.8 CHLOR 102 CO2 26 BUN 21* CREAT 1.00 GLUC 136* CA 8.9 ANION 14 Assessment/Plan Cellulitis after surgery POA: Yes -exam the LLL, reduced redness -c/w IV ABX Ancef -ID on consult - Not likely associated with GSV incisions per ID -Seroma hematoma at medial knee site - low suspicion for infection. -U/S for fluid collection at site of cellulitis -Reveals complex fluid collection -CT guided abscess drain per Dr Rose ? NSTEMI S/P CABG x 4 -c/w current med: ASA, BB, STATIN -walk -CXR reviewed, stable ? PAF -NSR ? DISPO: Home with home health care when transition to Oral Abx per ID ? Tests/Labs Ordered: 1. CT guided abscess drain placement SIGNATURE: Jazlyn Galicia APRN.[employer] PATIENT NAME: Carlos Buckner DATE: May 03, 2018 TIME: 9:35 AM PAGER/CONTACT #: [phone] Patient seen this afternoon apparently just after someone aspirated the left leg which I had requested be done in IR. Cellulitis improving. Patient expected to have complex fluid collection in saph vein harvest tunnel and I don't want to place incision unless necessary. Will await cult results on aspirate. P-cont antibiotics. I will decide re: ? Incision and poss drainage on his leg. Previous Version Nell Davey MD 05/03/2018 10:24 AM Addendum INFECTIOUS DISEASE PROGRESS NOTE Patient Name: Carlos Buckner ASSESSMENT: ?1. Left LE Non- purulent Cellulitis, likely Strep > SA , with concern for Infected Fluid collection 2. S/P CABG 03/28 with Left LE SVG sites - do not appear infected 3. Fever resolved 4. Failed Management Oral ATB 5. DM Type II 6. Ac on Chronic Anemia 7.Thigh fluid collection, clinically low suspicion of infection at this time, post op. Monitor ? RECOMMENDATIONS: Continue Ancef C/S Gen Surg for I AND D Keep Elevated Follow CBC/ Temps INTERVAL HISTORY: Afebrile, VSS C/o LLE Pain, erythema/ edema improving. Non Vasc US significant for small fluid collection LLE SVG site clean and dry. No acute events. MEDICATIONS: reviewed. Current hospital medications: insulin glargine 16 Units pen (long acting) (LANTUS SOLOSTAR, BASAGLAR KWIKPEN) 16 Units SUBCUTANEOUS DAILY (8 AM) clopidogrel 75 mg tab(s) (PLAVIX) 75 mg ORAL DAILY metoprolol tartrate (short acting) 25 mg tab(s) (LOPRESSOR) 25 mg ORAL q 8 H ceFAZolin iv piggyback 1 g in D5W (iso-osmotic) 50 mL (ANCEF) 1 g INTRAVENOUS q 8 H acetaminophen 325-650 mg tab(s) (TYLENOL) 325-650 mg ORAL q 6 H PRN empagliflozin 25 mg tab(s) (JARDIANCE) 25 mg ORAL DAILY metFORMIN 1,000 mg tab(s) (GLUCOPHAGE) 1,000 mg ORAL BID w MEALS atorvastatin 80 mg tab(s) (LIPITOR) 80 mg ORAL DAILY lisinopril 2.5 mg tab(s) 2.5 mg ORAL DAILY insulin lispro 6 Units pen (rapid acting) (HumaLOG KWIKPEN) 6 Units SUBCUTANEOUS w MEALS polyethylene glycol 3350 17 g packet (MIRALAX, GLYCOLAX) 17 g ORAL DAILY senna-docusate 8.6-50 mg 1 tablet (SENNA-S) 1 tablet ORAL BID bisacodyl 10 mg suppository (DULCOLAX) 10 mg RECTAL DAILY PRN melatonin 3 mg tab(s) 3 mg ORAL HS PRN aspirin 81 mg chewable tab(s) 81 mg ORAL DAILY therapeutic multivitamin with iron (THERAGRAN-M) 1 tablet ORAL DAILY heparin 5,000 Units injection 5,000 Units SUBCUTANEOUS q 12 H NaCl 0.9% 3-5 mL 3-5 mL INTRAVENOUS q 12 H oxyCODONE-acetaminophen 5-325 mg 1-2 tablet (PERCOCET) 1-2 tablet ORAL q 4 H PRN dextrose 40 % 15 g 15 g ORAL PRN glucagon 1 mg injection (GLUCAGEN) 1 mg INTRAMUSCULAR PRN dextrose 50% in water 25 mL syringe 12.5 g INTRAVENOUS PRN PHYSICAL EXAM: Vital signs: BP 116/66 Pulse 67 Temp 36.6 ?C (97.9 ?F) (Oral) Resp 16 Ht 177.8 cm (5' 10) Wt 95.8 kg (211 lb 1.6 oz) SpO2 99% BMI 30.29 kg/m? Temp (24hrs), Av.8 ?C (98.2 ?F), Min:36.6 ?C (97.9 ?F), Max:37 ?C (98.6 ?F) GEN: Alert, pleasant, NAD HEENT: PERRL, moist oral mucosa, neck supple PULM: CTA bilateral, no rhonchi/wheezes. CV: RRR- midline sternal incision c/d/i GI: soft, non distended, non tender, BSx4 : no weaver, no CVAT EXT: Left lower extremity mild edema, + erythema, no wounds or purulence, small amount central fluctuance -- no joint inflammation -- SVG site without s/o infection SKIN: no rash NEURO: no focal deficits, Alert and oriented x3 LINES: PIV sites clean Lab data: reviewed Recent Labs 05/02/18 0410 WBC 4.12* HB 10.8* PLT 293 NA 138 K 3.8 CO2 26 BUN 21* CREAT 1.00 Microbiology data: reviewed 04/30 Blood Cx: ngtd MRSA nares neg. Imaging data: reviewed [facility] Pager: [phone] May 03, 2018 9:47 AM Thank you for the consult. We will continue to follow the patient with you. Please call for any questions or concerns. Have seen and evaluated. Agree with above unless otherwise noted. Nell Davey MD Previous Version Bernarda Rehman APRN.[employer] 05/03/2018 3:24 PM Addendum CONSULT: EMERGENCY GENERAL SERVICE SERVICE DATE: 05/03/2018 SERVICE TIME: 10:04 AM REASON FOR CONSULT: Abscess LLE/ non-purulent cellulitis REQUESTING PHYSICIAN: PRIMARY CARE PHYSICIAN: Rick Camacho MD Subjective Mr. Buckner is a 57 yo patient with PMH of NSTEMI s/p CABG X4 (QUIJANO-LAD; SVG-Diag; SVG-OM; SVG-PLB) on 03/28/2018. Pt was started on Keflex for concerning LLE cellulitis. Pt was re-evaluated by CV team who felt the cellulitis was not responding to the oral antibiotics. Pt was therefore admitted to Inpatient with IV ABX management given impression that he did not respond to the initial PO ABX in the setting of DM. General surgery was consulted to evaluate for possible abscess to LLE with possible benefit of IANDD. FUNCTIONAL STATUS: Independent 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/28/2018 - Type II or unspecified type diabetes mellitus without mention of complication, not stated as uncontrolled PAST SURGICAL HISTORY Procedure Laterality Date - CABG (4) VEIN GRAFTS AND ARTERIAL GRAFT(S) 03/28/2018 - COLONOSCOP W/ OR W/O BRSH SPEC 01/17/15 Colonoscopy - KIDNEY SURGERY HX - LITHOTRIPSY PROC UNILATERAL 2006 left side done in [place] - PAST SURGICAL HISTORY OF dog bite age 5 - PAST SURGICAL HISTORY OF chainsaw injury FAMILY HISTORY Problem Relation Age of Onset - other (polio) Mother - Emphysema Father - Diabetes Maternal Grandfather - COPD Paternal Grandmother - COPD Paternal Grandfather Social History Substance Use Topics - Smoking status: Never Smoker - Smokeless tobacco: Never Used - Alcohol use No Prescriptions Prior to Admission: ciprofloxacin HCl (CIPRO) 500 mg tablet Take 1 tablet by mouth twice daily for 10 days. Disp: 20 tablet Rfl: 0 lisinopril 2.5 mg tablet Take 1 tablet by mouth once daily. Disp: 30 tablet Rfl: 2 Taking atorvastatin (LIPITOR) 80 mg tablet Take 1 tablet by mouth once daily. Disp: 90 tablet Rfl: 1 Taking acetaminophen (TYLENOL) 325 mg tablet Take 1-2 tablets by mouth every 6 hours as needed for Fever (Temp >38.5C). Disp: Rfl: Taking aspirin 81 mg chewable tablet Take 1 tablet by mouth once daily. Disp: Rfl: Taking bisacodyl (DULCOLAX) 10 mg supp 1 Suppository by RECTAL route once daily as needed. Disp: Rfl: Taking clopidogrel (PLAVIX) 75 mg tablet Take 1 tablet by mouth once daily. Disp: 30 tablet Rfl: 5 Taking melatonin 3 mg tablet Take 1 tablet by mouth at bedtime as needed (insomnia). Disp: Rfl: Taking metoprolol tartrate, short acting, (LOPRESSOR) 50 mg tablet Take 1 tablet by mouth every 8 hours. Disp: 90 tablet Rfl: 2 Taking polyethylene glycol 3350 (MIRALAX, GLYCOLAX) 17 gram packet Take 1 Packet by mouth once daily. Disp: Rfl: Taking senna-docusate (SENNA-S) 8.6-50 mg per tablet Take 1 tablet by mouth twice daily. Disp: Rfl: Taking insulin glargine (LANTUS SOLOSTAR, BASAGLAR KWIKPEN) 100 unit/mL (3 mL) inpn Inject 16 Units subcutaneously every morning. Disp: 15 mL Rfl: 3 Taking insulin lispro (HUMALOG KWIKPEN) 100 unit/mL inpn Inject 6 Units subcutaneously w MEALS. Disp: 15 mL Rfl: 3 Taking Insulin Greenwald, Disposable, (LITE TOUCH INSULIN PEN NEEDLES) 29 gauge x 1/2 ndle For insulin injections 4 times daily Disp: 100 Each Rfl: 3 Taking rctiwxtf-erp-IA-lycopen-lutein (MEN 50 PLUS MULTIVITAMIN) 300-600-300 mcg tab Take 1 tablet by mouth once daily. Disp: Rfl: Taking empagliflozin (JARDIANCE) 25 mg tablet Take 1 tablet by mouth once daily. Disp: 90 tablet Rfl: 3 Taking blood sugar diagnostic (BLOOD GLUCOSE TEST) test strip Test blood sugar(s) 2x daily. Dx: E11.65. Insulin: No Disp: 100 Strip Rfl: 11 Taking metFORMIN (GLUCOPHAGE) 1,000 mg tablet Take 1 tablet by mouth twice daily with meals. Disp: 180 tablet Rfl: 3 Taking Blood-Glucose Meter monitoring kit Glucose Meter of Choice - Kit - Dx: Type 2 DM - Uncontrolled E11.65 (per insurance) Disp: 1 Each Rfl: 0 Taking Lancets lancets Test blood sugar(s) 2x daily. Dx: E11.65. Insulin: No Disp: 100 Each Rfl: 11 Taking COMPOUNDED PRESCRIPTION CPAP @ 8 cm of water with humidification. Mask (per patient preference) optional chin strap (if indicated) , filters, tubing, humidifier and lifetime supplies. Dx. TEOFILO 327.23 Disp: 1 Device Rfl: 0 Taking Current hospital medications: insulin glargine 16 Units pen (long acting) (LANTUS SOLOSTAR, BASAGLAR KWIKPEN) 16 Units SUBCUTANEOUS DAILY (8 AM) clopidogrel 75 mg tab(s) (PLAVIX) 75 mg ORAL DAILY metoprolol tartrate (short acting) 25 mg tab(s) (LOPRESSOR) 25 mg ORAL q 8 H ceFAZolin iv piggyback 1 g in D5W (iso-osmotic) 50 mL (ANCEF) 1 g INTRAVENOUS q 8 H acetaminophen 325-650 mg tab(s) (TYLENOL) 325-650 mg ORAL q 6 H PRN empagliflozin 25 mg tab(s) (JARDIANCE) 25 mg ORAL DAILY metFORMIN 1,000 mg tab(s) (GLUCOPHAGE) 1,000 mg ORAL BID w MEALS atorvastatin 80 mg tab(s) (LIPITOR) 80 mg ORAL DAILY lisinopril 2.5 mg tab(s) 2.5 mg ORAL DAILY insulin lispro 6 Units pen (rapid acting) (HumaLOG KWIKPEN) 6 Units SUBCUTANEOUS w MEALS polyethylene glycol 3350 17 g packet (MIRALAX, GLYCOLAX) 17 g ORAL DAILY senna-docusate 8.6-50 mg 1 tablet (SENNA-S) 1 tablet ORAL BID bisacodyl 10 mg suppository (DULCOLAX) 10 mg RECTAL DAILY PRN melatonin 3 mg tab(s) 3 mg ORAL HS PRN aspirin 81 mg chewable tab(s) 81 mg ORAL DAILY therapeutic multivitamin with iron (THERAGRAN-M) 1 tablet ORAL DAILY heparin 5,000 Units injection 5,000 Units SUBCUTANEOUS q 12 H NaCl 0.9% 3-5 mL 3-5 mL INTRAVENOUS q 12 H oxyCODONE-acetaminophen 5-325 mg 1-2 tablet (PERCOCET) 1-2 tablet ORAL q 4 H PRN dextrose 40 % 15 g 15 g ORAL PRN glucagon 1 mg injection (GLUCAGEN) 1 mg INTRAMUSCULAR PRN dextrose 50% in water 25 mL syringe 12.5 g INTRAVENOUS PRN Allergies As of Date: 04/28/2018 Allergen Noted Reaction OYSTERS 06/30/2014 Rash and Itching SHELLFISH CONTAINING PRODUCTS 03/19/2018 Rash Fully Assessed 04/28/2018 COMPLETE REVIEW OF SYSTEMS: PAIN ASSESSMENT: CURRENTLY HAVING PAIN: LLE, medial calf region, tightness, worse with standing and ambulating, /10. GENERAL: No malaise or fevers, feeling well in general. HEENT: Negative for frequent or significant headaches, No changes in hearing or vision, no nose bleeds or other nasal problems NECK: Negative for lumps, goiter, pain and significant neck swelling RESPIRATORY: Negative for cough, hemoptysis, wheezing, COPD, dyspnea or shortness of breath CARDIOVASCULAR: Negative for chest pain, leg swelling, hypertension, CHF or palpitations MUSCULOSKELETAL: Negative for joint pain or swelling, back pain or muscle pain SKIN: LLE: Approximately 7cm x 7 cm area of erythema with central area of slight swelling with soft fluctuance. HEMATOLOGY/LYMPHOLOGY: Negative for prolonged bleeding, bruising easily or swollen nodes ENDOCRINE: Positive for diabetes mellitus on oral agent NEURO: No history of headaches, syncope, paralysis, seizures or tremors Objective PHYSICAL EXAM: Physical Exam Performed: GENERAL: Alert, no distress, cooperative SKIN: Skin color, texture, turgor normal. No rashes or lesions. HEAD/SINUSES: No significant findings EYES: PERRLA EARS: External ears normal, canals clear OROPHARYNX: Lips, mucosa, and tongue normal. Teeth and gums normal. Oropharynx normal. NECK: No jugulovenous distention, No carotid bruits, Carotid pulse normal contour, Supple LUNGS: Lungs clear to auscultation, Good diaphragmatic excursion CARDIAC: Normal S1 and S2; no rubs, murmurs, or gallops ABDOMEN: Abdomen soft, non-tender, BS normal, No masses or organomegaly EXTREMITIES: Extremities normal, no deformities, edema, clubbing or skin discoloration. Good capillary refill., No ulcers NEURO: Gait normal. Reflexes normal and symmetric. Sensation grossly intact PULSES: 2+ radial, 2+ carotid WOUND: LLE with area of erythema that is decreased from area marked. Approximately 7 cm x 7 cm of erythema with 1 cm in diameter area of soft fluctuance in the center of the area of erythema. BP 116/66 Pulse 67 Temp (Src) 97.9 (Oral) Resp 16 Ht 5' 10 (1.78m) Wt 211 lb 1.6 oz (95.8kg) SpO2 99% BMI 30.29 kg/(m2). DATA: Diagnostic tests reviewed for today's visit: Most recent labs and imaging results. CBC, Coags, BMP, Mg, Phos Recent Labs 05/02/18 0410 WBC 4.12* HB 10.8* HCT 33.1* PLT 293 NA 138 K 3.8 CHLOR 102 CO2 26 BUN 21* CREAT 1.00 GLUC 136* CA 8.9 Imaging: US Extremity Mass/Fluid Collection: 05/02/2018 RESULTS: Targeted scanning demonstrates a mildly heterogeneous hypoechoic fluid collection just deep to the skin surface which is reported by the technologist to be along the left distal leg within a region of vein harvesting. ?This presumably represents a different area than the region which was scanned 5 days ago. ?There is a 3.2 x 0.7 x 1.5 cm mildly complex fluid collection. ? IMPRESSION: There is a superficial fluid collection of the distal left leg at an area of prior ?vein harvesting. ?The sterilely of the fluid is indeterminant. ?This may represent seroma, hematoma or abscess. US DVT Lower Ext Left: 04/28/2018: IMPRESSION: Negative for left lower extremity DVT ? Impression/Recommendations This is a 57 year old male with LLE cellulitis, questionable abscess. - Medical management per primary team - Antibiotics per ID: Appears to be responding to IV Cefazolin - DM Type II: Controlled - LLE wound with 3.2 x 0.7 x 1.5 cm mildly complex fluid collection per ultrasound. Will discuss assessment and plan with attending, Dr. Buckley. - Questionable IANDD vs continue antibiotics. Addendum: 1520: - Bedside aspiration of approximately 1 ml of bloody-purulent, thick fluid. Culture obtained and sent to lab. SIGNATURE: Bernarda Rehman APRN.CNP PATIENT NAME: Carlos Buckner DATE: May 03, 2018 TIME: 10:03 AM PAGER: see pager Emergency General Surgery Service Pager: For questions or concerns Mon-Fri 6a-5p please page [phone]. After 5pm and on Weekends and Holidays, please page [phone] if in ICU or [phone] if on RNF. Previous Version Duglas Tang RN, RN 05/03/2018 11:28 AM Signed CARE MANAGEMENT PROGRESS NOTE SERVICE DATE: 05/03/2018 SERVICE TIME: 1127 LOS: 5 days Spoke with pt in room, active with [facility], plan is home and continue with [facility] at discharge. SIGNATURE: Duglas Tang RN PATIENT NAME: Carlos Buckner DATE: May 03, 2018 TIME: 11:27 AM PAGER/CONTACT #: [phone] Adilene Christianson, PHOTOGRAPHIC PROCESS ATTENDANT.CREW TEAM MEMBER 05/04/2018 10:03 AM Signed Emergency General Surgery Progress Note SERVICE DATE: 05/04/2018 TIME: 0645 SUBJECTIVE: No acute overnight events. Reports overall feeling well, some discomfort LLE aspiration site. Tolerating diet DIET HEART HEALTHY Nausea No Emesis No Flatus Yes Bowel movement Yes Pain Controlled Yes Ambulating Yes OBJECTIVE: Vitals: Temp (24hrs), Av.6 ?C (97.8 ?F), Min:36.3 ?C (97.3 ?F), Max:36.7 ?C (98.1 ?F) BP (!) 104/48 Pulse 72 Temp 36.3 ?C (97.3 ?F) (Axillary) Resp 16 Ht 177.8 cm (5' 10) Wt 95.8 kg (211 lb 1.6 oz) SpO2 100% BMI 30.29 kg/m? O2 Therapy: Continuous Positive Airway Pressure IANDO: Date 05/03/18 07 - 05/04/18 0659 05/04/18 07 - 05/05/18 0659 Shift 6440-4381 5502-9143 2202-8380 24 Hour Total 8574-0495 6695-7860 5035-4353 24 Hour Total I N T A K E PO 358 118 476 PO 358 118 476 IV 50 50 Cefazolin IV 50 50 Shift Total 358 168 526 O U T P U T Urine 1700 1700 Void (ml) 1700 1700 Urine Not Saved. 1 x 1 x Shift Total 1700 1700 Weight (kg) 95.8 95.8 95.8 95.8 95.8 95.8 95.8 95.8 MEDICATIONS Current Facility-Administered Medications: insulin glargine 16 Units pen (long acting) (LANTUS SOLOSTAR, BASAGLAR KWIKPEN) 16 Units SUBCUTANEOUS DAILY (8 AM) clopidogrel 75 mg tab(s) (PLAVIX) 75 mg ORAL DAILY metoprolol tartrate (short acting) 25 mg tab(s) (LOPRESSOR) 25 mg ORAL q 8 H ceFAZolin iv piggyback 1 g in D5W (iso-osmotic) 50 mL (ANCEF) 1 g INTRAVENOUS q 8 H acetaminophen 325-650 mg tab(s) (TYLENOL) 325-650 mg ORAL q 6 H PRN empagliflozin 25 mg tab(s) (JARDIANCE) 25 mg ORAL DAILY metFORMIN 1,000 mg tab(s) (GLUCOPHAGE) 1,000 mg ORAL BID w MEALS atorvastatin 80 mg tab(s) (LIPITOR) 80 mg ORAL DAILY lisinopril 2.5 mg tab(s) 2.5 mg ORAL DAILY insulin lispro 6 Units pen (rapid acting) (HumaLOG KWIKPEN) 6 Units SUBCUTANEOUS w MEALS polyethylene glycol 3350 17 g packet (MIRALAX, GLYCOLAX) 17 g ORAL DAILY senna-docusate 8.6-50 mg 1 tablet (SENNA-S) 1 tablet ORAL BID bisacodyl 10 mg suppository (DULCOLAX) 10 mg RECTAL DAILY PRN melatonin 3 mg tab(s) 3 mg ORAL HS PRN aspirin 81 mg chewable tab(s) 81 mg ORAL DAILY therapeutic multivitamin with iron (THERAGRAN-M) 1 tablet ORAL DAILY heparin 5,000 Units injection 5,000 Units SUBCUTANEOUS q 12 H NaCl 0.9% 3-5 mL 3-5 mL INTRAVENOUS q 12 H oxyCODONE-acetaminophen 5-325 mg 1-2 tablet (PERCOCET) 1-2 tablet ORAL q 4 H PRN dextrose 40 % 15 g 15 g ORAL PRN Or glucagon 1 mg injection (GLUCAGEN) 1 mg INTRAMUSCULAR PRN Or dextrose 50% in water 25 mL syringe 12.5 g INTRAVENOUS PRN Labs: Recent Labs 05/02/18 0410 NA 138 K 3.8 CHLOR 102 CO2 26 BUN 21* CREAT 1.00 GLUC 136* ANION 14 CA 8.9 WBC 4.12* HB 10.8* HCT 33.1* PLT 293 Exam: GENERAL: No distress, Alert NEURO: AANDOx3, CN II-XII grossly intact HEENT: normocephalic, atraumatic LUNGS: Unlabored breathing on room air, breath sounds clear CARDIAC: Regular rate and rhythm as above ABDOMEN: Soft, obese, non-tender, non-distended with bowel sounds EXTREMITIES: TIRADO, No deformities, No edema SKIN: Skin color, texture, turgor normal, No rashes or lesions WOUND: LLE aspiration site with surrounding area erythema, induration (approx 6 cm x 6 cm), no fluctuance, no drainage ASSESSMENT AND PLAN: Active Hospital Problems Diagnosis Date Noted - Wound cellulitis after surgery 04/28/2018 57 year old male with LLE cellulitis - Medical management per primary team - Antibiotics per ID - Cultures: no growth at 1 day - No further acute surgical intervention ? 0900 Assessment and plan discussed with attending: Dr. Buckley. - No further acute surgical intervention. Will sign off, please call with questions SIGNATURE: Adilene Christianson APRN.CREW TEAM MEMBER PATIENT NAME: Carlos Buckner DATE: May 04, 2018 TIME: 6:04 AM Emergency General Surgery Service Pager: For questions or concerns Wed-Wed 6a-5p please page [phone]. After 5pm and on Weekends and Holidays, please page [phone]. Jazlyn Galicia APRN.JUAN 05/04/2018 2:08 PM Signed CARDIOTHORACIC SURGERY POSTOP PROGRESS NOTE SERVICE DATE: 05/04/2018 SERVICE TIME: 8:05 AM Subjective S/P SURGERY: DATE OF SURGERY: POSTOP DAY #1 LOS: 6 HPI: Carlos Buckner is a 57 year old male that returns to the office today for 1 Month post-discharge follow up for NSTEMI?s/p CABGX4 (QUIJANO- LAD; SVG-Diag; SVG-OM; SVG-PLB)?performed on 03/28/2018. His post-operative course was complicated by a brief episode of atrial fibrillation which resolved with amiodarone and concomitant respiratory distress which resolved with the atrial fibrillation. He was discharged home with [facility] on 04/05/2018. ?04/26, VNS reached out to this office about concern for red leg. A prescription for keflex was provided at that time. On 04/28/2018, Carlos Buckner returned to the [facility] office in follow-up for complaint of cellulitis. ?He reports that on Wednesday evening he noticed a red spot between the two GSV harvest sites. On Wednesday he was febrile 100.4F and VNS saw the red spot and called it into this office. He started the Keflex Wednesday and was able to get 3 doses in. That evening, the redness had worsened and he felt worse so he decided to go to [facility] ED. In the ed he had a fever again, but was advised to continue the keflex and he returned home. Today, the redness is well beyond the perdomo from VNS and ED. At that time he was directly admitted to [facility] for IV antibiotic management and started on . ?Per ID note, likely culprit is Strep, on Ancef IV. Today, Mr reports doing well, BS controlled of the prandial insulin. Seen with Dr Rose and discussed plan possible IANDD in of of Left leg cellulitis/fluid collection. Objective Admission Weight: 98.7 kg (217 lb 9.5 oz) BP (!) 104/48 Pulse 72 Temp 36.3 ?C (97.3 ?F) (Axillary) Resp 16 Ht 177.8 cm (5' 10) Wt 95.8 kg (211 lb 1.6 oz) SpO2 100% BMI 30.29 kg/m? Body surface area is 2.18 meters squared. Min/Max/Average Temperature AND Blood Pressure: Temp (24hrs), Av.6 ?C (97.8 ?F), Min:36.3 ?C (97.3 ?F), Max:36.7 ?C (98.1 ?F) Systolic (24hrs), Av , Min:97 , Max:127 Diastolic (24hrs), Av, Min:48, Max:74 Intake/Output Summary (Last 24 hours) at 05/04/18 08 Last data filed at 05/03/18 1800 Gross per 24 hour Intake 526 ml Output 1700 ml Net -1174 ml TELEMETRY: normal sinus rhythm PHYSICAL EXAM: General Appearance: well developed and no distress Skin: Midsternal incision dry AND intact., SVG incisions dry AND intact. and Left leg cellulitis with improved appearance of errythema, noted punture wound in the ffluctuant deanne Lungs: clear and respiratory effort: normal Heart: S1, S2 normal Peripheral Vascular/Arteries: pulses intact Abdomen: soft, round and non-tender Musculoskeletal: no deformities Extremities: normal exam of the extremities Lines, Drains, and Airways Line Peripheral 04/28/18 1755 Short Right Forearm 20 Gauge 5 days DATA: Diagnostic tests reviewed for today's visit: Wound Culture from LLL - No growth at 1 day Recent Labs 05/02/18 0410 RBC 3.61* WBC 4.12* HB 10.8* HCT 33.1* PLT 293 NA 138 K 3.8 CHLOR 102 CO2 26 BUN 21* CREAT 1.00 GLUC 136* CA 8.9 ANION 14 Assessment/Plan Cellulitis after surgery POA: Yes -exam the LLL, reduced redness -c/w IV ABX Ancef -ID on consult - Not likely associated with GSV incisions per ID -Seroma hematoma at medial knee site - low suspicion for infection. -U/S for fluid collection at site of cellulitis -Reveals complex fluid collection -no growth from specimen sent 05/03 -Dr Rose Considering IANDD in OR tomorrow. -Hold Plavix 05/05 for IANDD -Hold Lantus 05/05 for NPO for IANDD ? NSTEMI S/P CABG x 4 -c/w current med: ASA, BB, STATIN -walk -CXR reviewed, stable ? PAF -NSR DM - Stop prandial humalog for low normal accucheck - continue Jardience, metformin and lantus - continue accucheck am ? DISPO: Home with home health care when transition to Oral Abx per ID Tests/Labs Ordered: 1. CBC 2. CMP SIGNATURE: Jazlyn Galicia APRN.WO[employer]WORKING [employer] PATIENT NAME: Carlos Buckner DATE: May 04, 2018 TIME: 8:05 AM PAGER/CONTACT #: [phone] ETX [id number] Nell Davey MD 05/04/2018 9:41 AM Signed INFECTIOUS DISEASE PROGRESS NOTE Patient Name: Carlos Buckner ASSESSMENT: ?1. Left LE Non- purulent Cellulitis, likely Strep > SA , with concern for Infected Fluid collection s/p IANDD 2. S/P CABG 03/28 with Left LE SVG sites - do not appear infected 3. Fever resolved 4. Failed Management Oral ATB 5. DM Type II 6. Ac on Chronic Anemia 7.Thigh fluid collection, clinically low suspicion of infection at this time, post op. Monitor ? RECOMMENDATIONS: Continue Ancef Follow abscess cx Keep Elevated Follow CBC/ Temps INTERVAL HISTORY: Afebrile, VSS Underwent bedside IANDD of the collection, cx sent. No complaints this morning. Swelling improving MEDICATIONS: reviewed. Current hospital medications: insulin glargine 16 Units pen (long acting) (LANTUS SOLOSTAR, BASAGLAR KWIKPEN) 16 Units SUBCUTANEOUS DAILY (8 AM) clopidogrel 75 mg tab(s) (PLAVIX) 75 mg ORAL DAILY metoprolol tartrate (short acting) 25 mg tab(s) (LOPRESSOR) 25 mg ORAL q 8 H ceFAZolin iv piggyback 1 g in D5W (iso-osmotic) 50 mL (ANCEF) 1 g INTRAVENOUS q 8 H acetaminophen 325-650 mg tab(s) (TYLENOL) 325-650 mg ORAL q 6 H PRN empagliflozin 25 mg tab(s) (JARDIANCE) 25 mg ORAL DAILY metFORMIN 1,000 mg tab(s) (GLUCOPHAGE) 1,000 mg ORAL BID w MEALS atorvastatin 80 mg tab(s) (LIPITOR) 80 mg ORAL DAILY lisinopril 2.5 mg tab(s) 2.5 mg ORAL DAILY polyethylene glycol 3350 17 g packet (MIRALAX, GLYCOLAX) 17 g ORAL DAILY senna-docusate 8.6-50 mg 1 tablet (SENNA-S) 1 tablet ORAL BID bisacodyl 10 mg suppository (DULCOLAX) 10 mg RECTAL DAILY PRN melatonin 3 mg tab(s) 3 mg ORAL HS PRN aspirin 81 mg chewable tab(s) 81 mg ORAL DAILY therapeutic multivitamin with iron (THERAGRAN-M) 1 tablet ORAL DAILY heparin 5,000 Units injection 5,000 Units SUBCUTANEOUS q 12 H NaCl 0.9% 3-5 mL 3-5 mL INTRAVENOUS q 12 H oxyCODONE-acetaminophen 5-325 mg 1-2 tablet (PERCOCET) 1-2 tablet ORAL q 4 H PRN dextrose 40 % 15 g 15 g ORAL PRN glucagon 1 mg injection (GLUCAGEN) 1 mg INTRAMUSCULAR PRN dextrose 50% in water 25 mL syringe 12.5 g INTRAVENOUS PRN PHYSICAL EXAM: Vital signs: BP 112/57 Pulse 74 Temp 36.5 ?C (97.7 ?F) (Oral) Resp 18 Ht 177.8 cm (5' 10) Wt 95.8 kg (211 lb 3.2 oz) SpO2 100% BMI 30.30 kg/m? Temp (24hrs), Av.8 ?C (98.2 ?F), Min:36.6 ?C (97.9 ?F), Max:37 ?C (98.6 ?F) GEN: Alert, pleasant, NAD HEENT: PERRL, moist oral mucosa, neck supple PULM: CTA bilateral, no rhonchi/wheezes. CV: RRR- midline sternal incision c/d/i GI: soft, non distended, non tender, BSx4 : no weaver, no CVAT EXT: Left lower extremity mild edema, + erythema, no wounds or purulence, small amount central fluctuance -- no joint inflammation -- SVG site without s/o infection SKIN: no rash NEURO: no focal deficits, Alert and oriented x3 LINES: PIV sites clean Lab data: reviewed Recent Labs 05/02/18 0410 WBC 4.12* HB 10.8* PLT 293 NA 138 K 3.8 CO2 26 BUN 21* CREAT 1.00 Microbiology data: reviewed 04/30 Blood Cx: ngtd MRSA nares neg. Imaging data: reviewed Thank you for the consult. We will continue to follow the patient with you. Please call for any questions or concerns. MD Duglas Rodriguez, RN, RN 05/04/2018 2:12 PM Signed CARE MANAGEMENT PROGRESS NOTE SERVICE DATE: 05/04/2018 SERVICE TIME: 1411 LOS: 6 days DC plan remains home with VNS at or. SIGNATURE: Duglas Tang RN PATIENT NAME: Carlos Buckner DATE: May 04, 2018 TIME: 2:11 PM PAGER/CONTACT #: [phone] Chaplain Montoya Chaplain 05/04/2018 7:31 PM Signed SPIRITUALCARE Spiritual Care Visit- Brief Note Name: Carlos Buckner Date: May 04, 2018 Notes: Patient declined spiritual support. Podopediatrician Signature: Nadya Reno, Podopediatrician To contact the Spiritual Care Department: Please call [phone] or Page the On-Call Podopediatrician at pager [phone] Thank you for the opportunity to be of service. This is an electronically created document. IF PRINTED, PLEASE DO NOT REMOVE FROM THE CHART OR MODIFY PRINTED COPY. Jazlyn Galicia APRN.JUAN 05/05/2018 10:53 AM Signed CARDIOTHORACIC SURGERY POSTOP PROGRESS NOTE SERVICE DATE: 05/05/2018 SERVICE TIME: 8:48 AM Subjective SURGERY: Procedure(s) (LRB): INCISION AND DRAINAGE POSTOPERATIVE WOUND COMPLEX (Left) -Possible pending Eval with Dr Rose today. DATE OF SURGERY: 05/05/2018 POSTOP DAY #>1 month LOS: 7 HPI: Carlos Buckner is a 57 year old male that returns to the office today for 1 Month?post-discharge follow up for NSTEMI?s/p CABGX4 (QUIJANO- LAD; SVG-Diag; SVG-OM; SVG-PLB)?performed on 03/28/2018. His post-operative course was complicated by a brief episode of atrial fibrillation which resolved with amiodarone and concomitant respiratory distress which resolved with the atrial fibrillation. He was discharged home with [facility] on 04/05/2018. ?04/26, VNS reached out to this office about concern for red leg. A prescription for keflex was provided at that time. ?On 04/28/2018, Carlos Buckner returned to the [facility] office in follow-up for complaint of cellulitis. ?He reports that on Wednesday evening he noticed a red spot between the two GSV harvest sites. On Wednesday he was febrile 100.4F and VNS saw the red spot and called it into this office. He started the Keflex Wednesday and was able to get 3 doses in. That evening, the redness had worsened and he felt worse so he decided to go to [facility] ED. In the ed he had a fever again, but was advised to continue the keflex and he returned home. Today, the redness is well beyond the perdomo from VNS and ED. At that time he was directly admitted to [facility] for IV antibiotic management and started on . ?Per ID note, likely culprit is Strep, on Ancef IV. Today, Leg wound is about the same, TTP, red, area of fluctuance. See with Dr Rose, patient updated as to plan today IANDD under sedation in OR. Objective Admission Weight: 98.7 kg (217 lb 9.5 oz) BP 106/72 Pulse 92 Temp 36.6 ?C (97.9 ?F) (Temporal Artery) Resp 18 Ht 177.8 cm (5' 10) Wt 95.8 kg (211 lb 4.8 oz) SpO2 100% BMI 30.32 kg/m? Body surface area is 2.18 meters squared. Min/Max/Average Temperature AND Blood Pressure: Temp (24hrs), Av.7 ?C (98.1 ?F), Min:36.5 ?C (97.7 ?F), Max:37 ?C (98.6 ?F) Systolic (24hrs), Av , Min:106 , Max:119 Diastolic (24hrs), Av, Min:57, Max:72 No intake or output data in the 24 hours ending 05/05/18 0847 TELEMETRY: N/A PHYSICAL EXAM: General Appearance: well developed and no distress Skin: Midsternal incision dry AND intact., SVG incisions dry AND intact. and Left leg cellulits is persistant and unchanged from previus day. Lungs: clear and respiratory effort: normal Heart: S1, S2 normal Peripheral Vascular/Arteries: pulses intact Abdomen: soft, round, non-tender and bowel sounds present Musculoskeletal: no deformities Extremities: normal exam of the extremities Lines, Drains, and Airways Line Peripheral 04/28/18 1755 Short Right Forearm 20 Gauge 6 days DATA: Diagnostic tests reviewed for today's visit: Significant Lab Results: As Below Wounf Cx - No growth at 1 day Recent Labs 05/05/18 0520 RBC 3.59* WBC 4.39 HB 10.6* HCT 32.9* PLT 339 NA 138 K 4.0 CHLOR 103 CO2 25 BUN 21* CREAT 0.85 GLUC 94 CA 8.8 ANION 14 Assessment/Plan Cellulitis after surgery POA: Yes -exam the LLL, reduced redness -c/w IV ABX Ancef -ID on consult - Not likely associated with GSV incisions per ID -Seroma hematoma at medial knee site - low suspicion for infection. -U/S for fluid collection at site of cellulitis -Reveals complex fluid collection ? -no growth from specimen sent 05/03 -Dr Milton EVERETT in OR today -Hold Plavix 05/05 for IANDD -Hold Lantus/Metformin/Jardience 05/05 for NPO for IANDD ? NSTEMI S/P CABG x 4 -c/w current med: ASA, BB, STATIN -walk -CXR reviewed, stable ? PAF -NSR ? DM - Stop prandial humalog for low normal accucheck - continue Jardience, metformin and lantus - continue accucheck am ? DISPO: Home with home health care when transition to Oral Abx per ID ? Tests/Labs Ordered: 1. None SIGNATURE: Jazlyn Galicia APRN.[employer] PATIENT NAME: Carlos Buckner DATE: May 05, 2018 TIME: 8:47 AM PAGER/CONTACT #: [phone] ETX [id number] Talia Perdue MD 05/05/2018 11:32 AM Signed ANESTHESIOLOGY DAY OF SURGERY NOTE SERVICE DATE: 05/05/2018 SERVICE TIME: 11:18 AM : 1960 Procedure(s) (LRB): INCISION AND DRAINAGE POSTOPERATIVE WOUND COMPLEX (N/A) Surgeon(s): Mike Rose Estimated body mass index is 30.32 kg/m? as calculated from the following: Height as of this encounter: 177.8 cm (5' 10). Weight as of this encounter: 95.8 kg (211 lb 4.8 oz). Most recent hematocrit and potassium results: Hematocrit (I-STAT) 32.9 05/05/2018 Potassium (I-STAT) 4.0 05/05/2018 57yo male with CAD s/p CABG 03/28/18 c/b wound cellulitis, TEOFILO, HL, IDDM, HTN Lantus, last dose yesterday Plavix, last dose yesterday Ancef, last dose 0500 (1g), q 8h ASA, metoprolol today ANES DOS/PREOP NOTE: Vitals: 05/04/18 2235 05/05/18 0600 05/05/18 0625 05/05/18 0856 BP: 106/72 116/59 Pulse: 92 90 Resp: Temp: 36.6 ?C (97.9 ?F) TempSrc: Temporal Artery Oral SpO2: 100% Weight: 95.8 kg (211 lb 4.8 oz) Height: ACTIVE PROBLEM LIST Hyperlipemia Teofilo (Obstructive Sleep Apnea) Dm (Diabetes Mellitus), Type 2, Uncontrolled (Hcc) Erectile Dysfunction Associated With Type 2 Diabetes Mellitus ([facility]) Hypertriglyceridemia Htn (Hypertension) Chest Pain Cad (Coronary Artery Disease) Acs (Acute Coronary Syndrome) ([facility]) Nstemi (Non-St Elevated Myocardial Infarction) ([facility]) S/P Cabg (Coronary Artery Bypass Graft) Wound Cellulitis After Surgery Cellulitis, Wound, Post-Operative 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/28/2018 - Type II or unspecified type diabetes mellitus without mention of complication, not stated as uncontrolled PAST SURGICAL HISTORY Procedure Laterality Date - CABG (4) VEIN GRAFTS AND ARTERIAL GRAFT(S) 03/28/2018 - COLONOSCOP W/ OR W/O BRSH SPEC 01/17/15 Colonoscopy - KIDNEY SURGERY HX - LITHOTRIPSY PROC UNILATERAL 2006 left side done in [place] - PAST SURGICAL HISTORY OF dog bite age 5 - PAST SURGICAL HISTORY OF chainsaw injury FAMILY HISTORY Problem Relation Age of Onset - other (polio) Mother - Emphysema Father - Diabetes Maternal Grandfather - COPD Paternal Grandmother - COPD Paternal Grandfather Social History: Social History Substance Use Topics - Smoking status: Never Smoker - Smokeless tobacco: Never Used - Alcohol use No No current facility-administered medications on file prior to encounter. Current Outpatient Prescriptions on File Prior to Encounter: ciprofloxacin HCl (CIPRO) 500 mg tablet Take 1 tablet by mouth twice daily for 10 days. lisinopril 2.5 mg tablet Take 1 tablet by mouth once daily. atorvastatin (LIPITOR) 80 mg tablet Take 1 tablet by mouth once daily. acetaminophen (TYLENOL) 325 mg tablet Take 1-2 tablets by mouth every 6 hours as needed for Fever (Temp >38.5C). aspirin 81 mg chewable tablet Take 1 tablet by mouth once daily. bisacodyl (DULCOLAX) 10 mg supp 1 Suppository by RECTAL route once daily as needed. clopidogrel (PLAVIX) 75 mg tablet Take 1 tablet by mouth once daily. melatonin 3 mg tablet Take 1 tablet by mouth at bedtime as needed (insomnia). metoprolol tartrate, short acting, (LOPRESSOR) 50 mg tablet Take 1 tablet by mouth every 8 hours. polyethylene glycol 3350 (MIRALAX, GLYCOLAX) 17 gram packet Take 1 Packet by mouth once daily. senna-docusate (SENNA-S) 8.6-50 mg per tablet Take 1 tablet by mouth twice daily. insulin glargine (LANTUS SOLOSTAR, BASAGLAR KWIKPEN) 100 unit/mL (3 mL) inpn Inject 16 Units subcutaneously every morning. insulin lispro (HUMALOG KWIKPEN) 100 unit/mL inpn Inject 6 Units subcutaneously w MEALS. Insulin [place], Disposable, (LITE TOUCH INSULIN PEN NEEDLES) 29 gauge x 1/2 ndle For insulin injections 4 times daily foparird-sfc-YQ-lycopen-lutein (MEN 50 PLUS MULTIVITAMIN) 300-600-300 mcg tab Take 1 tablet by mouth once daily. empagliflozin (JARDIANCE) 25 mg tablet Take 1 tablet by mouth once daily. blood sugar diagnostic (BLOOD GLUCOSE TEST) test strip Test blood sugar(s) 2x daily. Dx: E11.65. Insulin: No metFORMIN (GLUCOPHAGE) 1,000 mg tablet Take 1 tablet by mouth twice daily with meals. Blood-Glucose Meter monitoring kit Glucose Meter of Choice - Kit - Dx: Type 2 DM - Uncontrolled E11.65 (per insurance) Lancets lancets Test blood sugar(s) 2x daily. Dx: E11.65. Insulin: No COMPOUNDED PRESCRIPTION CPAP @ 8 cm of water with humidification. Mask (per patient preference) optional chin strap (if indicated) , filters, tubing, humidifier and lifetime supplies. Dx. TEOFILO 327.23 Current Facility-Administered Medications: [MAR Hold due to Transfer] insulin glargine 16 Units pen (long acting) (LANTUS SOLOSTAR, BASAGLAR KWIKPEN) 16 Units SUBCUTANEOUS DAILY (8 AM) Mike Rose 16 Units at 05/04/18 0849 [MAR Hold due to Transfer] clopidogrel 75 mg tab(s) (PLAVIX) 75 mg ORAL DAILY Mike Rose 75 mg at 05/04/18 0843 [MAR Hold due to Transfer] metoprolol tartrate (short acting) 25 mg tab(s) (LOPRESSOR) 25 mg ORAL q 8 H Mike Rose 25 mg at 05/05/18 0600 [MAR Hold due to Transfer] ceFAZolin iv piggyback 1 g in D5W (iso-osmotic) 50 mL (ANCEF) 1 g INTRAVENOUS q 8 H Shweta (Juan) Dionna Last Rate: 100 mL/hr at 05/05/18 0518 1 g at 05/05/18 0518 [MAR Hold due to Transfer] acetaminophen 325-650 mg tab(s) (TYLENOL) 325-650 mg ORAL q 6 H PRN Alex (Juan) DANIELA Ortega [MAR Hold due to Transfer] empagliflozin 25 mg tab(s) (JARDIANCE) 25 mg ORAL DAILY Alex (Juan) ESTRELLITA OrtegaNMckennaWOODWORKING BENCH CARPENTER 25 mg at 05/04/18 0843 [MAR Hold due to Transfer] metFORMIN 1,000 mg tab(s) (GLUCOPHAGE) 1,000 mg ORAL BID w MEALS Alex (Juan) ESTRELLITA OrtegaNMckennaWOODWORKING BENCH CARPENTER 1,000 mg at 05/04/18 1646 [MAR Hold due to Transfer] atorvastatin 80 mg tab(s) (LIPITOR) 80 mg ORAL DAILY Alex (Juan) ESTRELLITA OrtegaNMckennaWOODWORKING BENCH CARPENTER 80 mg at 05/05/18 0859 [MAR Hold due to Transfer] lisinopril 2.5 mg tab(s) 2.5 mg ORAL DAILY Alex (Juan) ESTRELLITA OrtegaNMckennaWOODWORKING BENCH CARPENTER 2.5 mg at 05/05/18 0859 [MAR Hold due to Transfer] polyethylene glycol 3350 17 g packet (MIRALAX, GLYCOLAX) 17 g ORAL DAILY Alex (Juan) ESTRELLITA OrtegaNMckennaWOODWORKING BENCH CARPENTER 17 g at 05/01/18 0852 [MAR Hold due to Transfer] senna-docusate 8.6-50 mg 1 tablet (SENNA-S) 1 tablet ORAL BID Alex (Juan) ESTRELLITA OrtegaNMckennaWOODWORKING BENCH CARPENTER 1 tablet at 05/05/18 0857 [MAR Hold due to Transfer] bisacodyl 10 mg suppository (DULCOLAX) 10 mg RECTAL DAILY PRN Alex (Juan) DANIELA Ortega [MAR Hold due to Transfer] melatonin 3 mg tab(s) 3 mg ORAL HS PRN Alex (Juan) ESTRELLITA OrtegaNELGIN [MAR Hold due to Transfer] aspirin 81 mg chewable tab(s) 81 mg ORAL DAILY Alex (Juan) APRN. PratimaWOODWORKING BENCH CARPENTER 81 mg at 05/05/18 0857 [MAR Hold due to Transfer] therapeutic multivitamin with iron (THERAGRAN-M) 1 tablet ORAL DAILY Weinwilla (Juan) DANIELA Ortega 1 tablet at 05/05/18 0859 [MAR Hold due to Transfer] heparin 5,000 Units injection 5,000 Units SUBCUTANEOUS q 12 H Weina (Juan) APRN. PratimaWOODWORKING BENCH CARPENTER 5,000 Units at 05/04/18 0844 [MAR Hold due to Transfer] NaCl 0.9% 3-5 mL 3-5 mL INTRAVENOUS q 12 H Alex (Juan) APRN. PratimaWOODWORKING BENCH CARPENTER 3 mL at 05/05/18 0900 [MAR Hold due to Transfer] oxyCODONE-acetaminophen 5-325 mg 1-2 tablet (PERCOCET) 1-2 tablet ORAL q 4 H PRN Alex (Juan) APRN. PratimaWOODWORKING BENCH CARPENTER 1 tablet at 05/04/18 2137 [MAR Hold due to Transfer] dextrose 40 % 15 g 15 g ORAL PRN Alex (Juan) DANIELA Ortega Or [MAR Hold due to Transfer] glucagon 1 mg injection (GLUCAGEN) 1 mg INTRAMUSCULAR PRN Alex (Juan) DANIELA Ortega Or [MAR Hold due to Transfer] dextrose 50% in water 25 mL syringe 12.5 g INTRAVENOUS PRN Alex (Juan) DANIELA Ortega Allergies: ALLERGIES Allergen Reactions - Oysters Rash, Itching - Shellfish Containin* Rash DOS EXAM: Adequate NPO status: Yes Anesthetic risks, benefits, alternatives, personnel and consent discussed: Yes Patient agrees to proceed: Yes Previous Anesthesia: No history of adverse event. Airway Assessment: MP 3; Neck ROM: Full ROM without neurologic symptoms; Airway Evaluation: Short Thyromental Distance Symptoms of Sleep Apnea: Hypertension and Male gender Dentition: Teeth intact Additional Physical Exam: Lungs: Patient health status unchanged since recent history and physical. See history and physical for exam findings. Cardiac: Patient health status unchanged since recent history and physical. See history and physical for exam findings. Additional Pertinent Findings: N/A Blood Products: Not anticipated for this procedure. Anesthetic Plan: General, Standard ASA Monitors Pain Management Plan: Parenteral or Oral ASA Class: 3 Other Medical Problems: None Chronic Beta Hector medication administered within 24 hours:yes I have interviewed and examined the patient. I have reviewed the medical record and/or the pre-anesthesia evaluation, pertinent labs, and test results. Significant changes in the patient's condition since the History and Physical, not otherwise documented in primary service progress notes: No This contains updated information obtained within 48 hours of Surgery/Procedure. SIGNATURE: Talia Perdue MD PATIENT NAME: Carlos Buckner DATE: May 05, 2018 TIME: 11:18 AM CSN: [id number] Progress Notes (ERIKA AG CTVS): Jazlyn Galicia APRN.[employer] 04/28/2018 2:03 PM Addendum HPI: Carlos Buckner is a 57 year old male that returns to the office today for 1 week post-discharge follow up for NSTEMI s/p CABGX4 (QUIJANO- LAD; SVG-Diag; SVG-OM; SVG-PLB) performed on 03/28/2018. His post-operative course was complicated by a brief episode of atrial fibrillation which resolved with amiodarone and concomitant respiratory distress which resolved with the atrial fibrillation. He was discharged home with [facility] on 04/05/2018. 04/26, VNS reached out to this office about concern for red leg. A prescription for keflex was provided at that time. He returns today to follow-up on the red leg. Today, Carlos Buckner, reports that on Wednesday evening he noticed a red spot between the two GSV harvest site. On Wednesday he was febrile 100.4F and VNS saw the red spot and called it into this office. He started the Keflex Wednesday and was able to get 3 doses in. That evening, the redness had worsened and he felt worse so he decided to go to [facility] ED. In the ed he had a fever again, but was advised to continue the keflex and he returned home. Today, the redness is well beyond the perdomo from VNS and ED. Pain: Some, well controlled with tylenol and some Oxycodone CV: (Dizzy, palpitations, BP, Edema) LE edema, otherwise denies SOB/MARTELL: Fever: Denies Diet: Resuming heart healthy Bowel: Normal Activity: Gradually increasing C/O: Red leg Cardiology F/U: Dr Silva Cardiac Rehab: [facility] Subjective: Current Outpatient Prescriptions: cephALEXin (KEFLEX) 500 mg capsule Take 1 capsule by mouth four times daily for 7 days. lisinopril 2.5 mg tablet Take 1 tablet by mouth once daily. atorvastatin (LIPITOR) 80 mg tablet Take 1 tablet by mouth once daily. acetaminophen (TYLENOL) 325 mg tablet Take 1-2 tablets by mouth every 6 hours as needed for Fever (Temp >38.5C). aspirin 81 mg chewable tablet Take 1 tablet by mouth once daily. bisacodyl (DULCOLAX) 10 mg supp 1 Suppository by RECTAL route once daily as needed. clopidogrel (PLAVIX) 75 mg tablet Take 1 tablet by mouth once daily. melatonin 3 mg tablet Take 1 tablet by mouth at bedtime as needed (insomnia). metoprolol tartrate, short acting, (LOPRESSOR) 50 mg tablet Take 1 tablet by mouth every 8 hours. polyethylene glycol 3350 (MIRALAX, GLYCOLAX) 17 gram packet Take 1 Packet by mouth once daily. senna-docusate (SENNA-S) 8.6-50 mg per tablet Take 1 tablet by mouth twice daily. furosemide (LASIX) 20 mg tablet Take 1 tablet by mouth once daily for 5 days. insulin glargine (LANTUS SOLOSTAR, BASAGLAR KWIKPEN) 100 unit/mL (3 mL) inpn Inject 16 Units subcutaneously every morning. insulin lispro (HUMALOG KWIKPEN) 100 unit/mL inpn Inject 6 Units subcutaneously w MEALS. amiodarone (PACERONE) 200 mg tablet Take 1 tablet by mouth as directed. Taper dosing. Take 200mg twice a day for 5 days, then 200mg once a day for 7 days. Insulin Greenwald, Disposable, (LITE TOUCH INSULIN PEN NEEDLES) 29 gauge x 1/2 ndle For insulin injections 4 times daily diovrqph-noa-WI-lycopen-lutein (MEN 50 PLUS MULTIVITAMIN) 300-600-300 mcg tab Take 1 tablet by mouth once daily. empagliflozin (JARDIANCE) 25 mg tablet Take 1 tablet by mouth once daily. blood sugar diagnostic (BLOOD GLUCOSE TEST) test strip Test blood sugar(s) 2x daily. Dx: E11.65. Insulin: No metFORMIN (GLUCOPHAGE) 1,000 mg tablet Take 1 tablet by mouth twice daily with meals. Blood-Glucose Meter monitoring kit Glucose Meter of Choice - Kit - Dx: Type 2 DM - Uncontrolled E11.65 (per insurance) Lancets lancets Test blood sugar(s) 2x daily. Dx: E11.65. Insulin: No COMPOUNDED PRESCRIPTION CPAP @ 8 cm of water with humidification. Mask (per patient preference) optional chin strap (if indicated) , filters, tubing, humidifier and lifetime supplies. Dx. TEOFILO 327.23 No current facility-administered medications for this visit. 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 - Type II or unspecified type diabetes mellitus without mention of complication, not stated as uncontrolled PAST SURGICAL HISTORY Procedure Laterality Date - CABG (4) VEIN GRAFTS AND ARTERIAL GRAFT(S) 03/28/2018 - COLONOSCOP W/ OR W/O BRSH SPEC 01/17/15 Colonoscopy - KIDNEY SURGERY HX - LITHOTRIPSY PROC UNILATERAL 2006 left side done in [place] - PAST SURGICAL HISTORY OF dog bite age 5 - PAST SURGICAL HISTORY OF chainsaw injury FAMILY HISTORY Problem Relation Age of Onset - other (polio) Mother - Emphysema Father - Diabetes Maternal Grandfather - COPD Paternal Grandmother - COPD Paternal Grandfather Social History Substance Use Topics - Smoking status: Never Smoker - Smokeless tobacco: Never Used - Alcohol use No Review of Systems Constitutional: Positive for weight loss (15 lbs (expected post op).). Negative for chills, fever and malaise/fatigue. HENT: Negative for sore throat. Respiratory: Negative for cough, sputum production, shortness of breath and wheezing. Cardiovascular: Positive for leg swelling (L>R). Negative for chest pain, palpitations, orthopnea, claudication and PND. Gastrointestinal: Negative for abdominal pain, blood in stool, constipation, diarrhea, melena, nausea and vomiting. Genitourinary: Negative for dysuria. Musculoskeletal: Negative for falls and joint pain. Skin: Red area to left LE area of cellulitis marked x 2, expanded beyond perdomo Neurological: Negative for dizziness, tingling, sensory change, focal weakness, weakness and headaches. Endo/Heme/Allergies: Does not bruise/bleed easily. Psychiatric/Behavioral: Negative for depression. The patient has insomnia. Objective: One month post- op Chest X-ray is done and reviewed today. Not done today. Physical Examination: Vitals:BP 120/70 Pulse 78 Resp 16 Ht 5' 10 (1.78m) Wt 221 lb (100.2kg) SpO2 98% BMI 31.71 kg/(m2). BP w/Orthostatic Vitals Date and Time Orthostatic BP Orthostatic Pulse BP Pulse BP Position BP Site BP Cuff Size 04/28/18 1305 -- -- 120/70 78 Sitting Left Arm -- Peak Flow Date and Time PF Resp 04/28/18 1305 -- 16 Last 2 Encounter Wt Readings: Date: Wt: 04/28/2018 221 lb (100.2 kg) 04/12/2018 235 lb (106.6 kg) Physical Exam Constitutional: He is oriented to person, place, and time and well-developed, well-nourished, and in no distress. HENT: Head: Normocephalic. Eyes: Pupils are equal, round, and reactive to light. Cardiovascular: Normal rate, regular rhythm, S1 normal, S2 normal and intact distal pulses. No murmur heard. Pulmonary/Chest: Effort normal and breath sounds normal. Abdominal: Soft. Normal appearance and bowel sounds are normal. Musculoskeletal: Normal range of motion. He exhibits edema. Neurological: He is alert and oriented to person, place, and time. Gait normal. Skin: Skin is warm and intact. Midsternal incision clean dry, well approximated, no redness or drainage - Well healed Sternum is stable Ct Sites Scabbed and healing SVG site clean dry, - Ankle to mid calf large area of cellulitis, beyond marked area Psychiatric: Mood and affect normal. Assessment and Plan: 1. S/P CABG (coronary artery bypass graft) - ICD9: V45.81, ICD10: Z95.1 (primary diagnosis) - Continue Metoprolol, lisinopril, statin - Stop amiodarone 2. Wound cellulitis after surgery - ICD9: 998.59, ICD10: T81.49XA - 9 doses of Keflex with enlarging area of cellulitis - Admission for IV ABX - U/S are to determine if cellulitis or fluid collection Jazlyn Galicia APRN.JUAN In summary, Mr Buckner is to be admitted for IV antibiotic management. Electronically signed by Jazlyn Galicia APRN.CNP on April 28, 2018, 1:12 PM Addendum: No beds available at this time. He will receive a call from admitting when a bed becomes available. In the meantime, stop keflex and start ciprofloxacin. Will attempt to U/S left LE for abscess. Previous Version Jazlyn Galicia APRN.CNP 04/28/2018 2:03 PM Signed Addended by: JAZLYN GALICIA CNP on: 04/28/2018 02:03 PM Modules accepted: Orders Jazlyn Galicia APRN.CNP 04/28/2018 2:08 PM Signed Addended by: JAZLYN GALICIA CNP on: 04/28/2018 02:08 PM Modules accepted: Orders Jazlyn Galicia APRN.CNP 04/28/2018 2:14 PM Signed Addended by: JAZLYN GALICIA CNP on: 04/28/2018 02:14 PM Modules accepted: Orders DISCHARGE INSTRUCTION Observed: 04/26/2018 Status: F Source: [place] 11:04 PM [facility] REPOSITORY [facility] Medical Records Department [address] [place] [address] Discharge Instruction 04/26/18 2143 MR#: [id number] Acct: [id number] Name: CARLOS BUCKNER Rep #: [id number] : 1960 57 From: Luis Ogden MD PCP: Rick Camacho MD Status: DEP ER ED Disposition - Plan for ED Patient: Disposition: Home or Assisted Living Chief Complaint: Cellulitis Instructions: ED Staph Infec Abx Tx Only Prescriptions: Oxycodone HCl/Acetaminophen [Oxycodon-Acetaminophen 7.5-325] 1 ea PO Q4H PRN PRN #20 tab PRN Reason: Pain Referrals: Rick Camacho MD [Primary Care Provider] - 3-5 Days Additional Instructions: Continue your current antibiotic the cephalexin 1 pill 4 times a day. Take it again the night before you go to bed. Return if feeling worse or if the area of redness gets a lot larger. Follow-up with your doctor by the end of this week. What to do if you have Problems For any increased pain, shortness of breath, bleeding, nausea or vomiting, chest pain, or any unexpected problems, contact your Primary Care Provider. Call [facility] ([phone]) or report to the closest Emergency Room. Call 911 if necessary. 04/26/18 0654 <Electronically signed by Luis Ogden MD> Date Luis Ogden MD Cosigner Signature (If Indicated): Date CC: Rick Camacho MD EMERGENCY DEPARTMENT Observed: 04/26/2018 Status: F Source: [place] SUMMARY 11:04 PM [facility] REPOSITORY [facility] Medical Records Department [address] [place] [address] Emergency Department Summary 04/26/18 2138 MR#: [id number] Acct: [id number] Name: CARLOS BUCKNER Rep #: [id number] : 1960 57 From: Luis Ogden MD PCP: Rick Camacho MD Status: DEP ER - ER Visit Summary Date of Service: 04/26/18 Chief Complaint: Left lower leg redness History of Present Illness: The patient is a 57 M status post recent quadruple bypass done at [facility]. Patient has known history of CAD, LA, insulin- dependent diabetes, hypertension. Recent admission to [facility] had cardiac catheterization and then was transferred to [facility] and had a quadruple bypass. Patient's been doing well. Today noticed redness and discomfort in his left lower leg. He was seen by a nurse practitioner who started him on Keflex 500 4 times daily. He is taken 1 pill so far. States he does have a low-grade fever. Denies nausea, vomiting, diarrhea or chills. His blood sugars been running about 150. Physical Examination: Middle-aged male no acute distress. Vital signs stable temperature 100.4. He does not look septic or toxic. He is in no distress. HEENT exam unremarkable. Neck nontender. Lungs clear to auscultation bilaterally. Heart regular rate and rhythm. Chest wall is well-healing sternotomy incision. No discharge. No redness. Abdomen soft and nontender. Normal bowel sounds. Patient is moving all 4 extremities. They are neurovascularly intact. He has vein harvesting incision is well healing along his left medial thigh. There is no cellulitis or pus. In his left lower leg on the medial aspect of his lower leg there is an area of redness at the proximal a 4 x 4 inches. Mildly tender. No discharge. Calf is nontender there is no edema or cords. This does not appear to be a blood clot. Skin is mildly tender to touch. Test Results: None Emergency Department Course and Treatment: Patient is already started on Keflex. He did take 1 dose of his home antibiotic with him. He will also take a third dose tonight. He will continue his antibiotic 4 times a day. Follow-up with his primary care physician Dr. Camacho by Wednesday. Return if he is feeling worse or if the area of redness is getting larger. The area has been traced out. Treatment Plan: Continue with antibiotic 4 times a day. Follow- up with his primary care physician this week. Return if worse. Disposition: Discharge Impression: Acute left lower extremity soft tissue cellulitis Status post CABG History of insulin-dependent diabetes This note was generated with [employer] dictation software. It may contain incorrect words, spelling, and punctuation that were not noted in review of the chart prior to signing ED Disposition - Plan for ED Patient: Chief Complaint: Cellulitis Referrals: Rick Camacho MD [Primary Care Provider] - What to do if you have Problems For any increased pain, shortness of breath, bleeding, nausea or vomiting, chest pain, or any unexpected problems, contact your Primary Care Provider. Call [facility] ([phone]) or report to the closest Emergency Room. Call 911 if necessary. 04/26/18 1556 <Electronically signed by Luis Ogden MD> Date Luis Ogden MD Cosigner Signature (If Indicated): Date CC: Rick Camacho MD CR - HISTORY AND Observed: 04/25/2018 Status: F Source: [place] PHYSICAL 12:56 PM [facility] REPOSITORY [facility] Cardiac Rehab [address] [place] [address] CR - History AND Physical MR#: [id number] Acct: [id number] Name: CARLOS BUCKNER Rep #: [id number] : 1960 57 From: Andre Ramon CRT, ERASMO, BS PCP: Rick Camacho MD DOS: 04/19/18 CR - History AND Physical - General Arrival date:: 04/19/18 Arrival time:: 10:30 Date of Referral:: 04/13/18 Date of CR Evaluation:: 04/19/18 Referring Physician: Dr. Mike Rose; Dr. Vlad Rodriguez; Dr. Rick Camacho Primary Diagnosis: CABG 03/28/2018 - History of Present Cardiac Event Onset Date: Enter Onset Date of cardiac illnesses in Comment field below Acute Myocardial Infarction within 12 months:: Yes - NSTEMI Coronary Artery Bypass Graft:: Yes - CABG x 3 vessel bypass at [facility] Type of Symptoms:: over several weeks notice climbing up and down tanker to open hatches noticed chest pain shortness of breath, then on wednesday woke up with uncontrolled chest pain and came to emergency room. Were there any complications?: none; one short period of A- fib but resolved. - Medications Home Medications: Ambulatory Orders Medication Instructions Recorded - Allergies Allergies/Adverse Reactions: Allergies oyster extract Allergy (Verified 04/19/18 11:53) Rash shrimp Allergy (Verified 03/19/18 12:07) Rash - Sleep Disorder Evaluation Hx of Sleep Apnea: Yes Do you snore loudly (louder than talking or can be heard through closed doors)?: Yes - wears CPAP at HS History of Hypertension (for STOP score): Yes Advanced Directives - Advanced Directives Power of Xm1 Tank Driver: Yes - /Daughter Living Will: Yes Advance Directives Information Provided: No Advance Directives on File: No DNR Order?:: No - MOLST See MOLST form: No Past Medical History - Past Medical Illness Medical History: Past Medical History (Last Updated 04/19/18 @ 11:55 by Andre Ramon, KEITH, UNIVERSITY DEAN, BS) CAD (coronary artery disease) I25.10 Hyperlipidemia E78.5 Type II diabetes mellitus E11.9 Hypertension I10 - Past Surgical History Surgical History: no surgical history, - - lithotripsy for kidney stone bilateral Social History - Smoking History Smoking Status: Never smoker Hx Tobacco Use: No Hx Smoking Exposure: No - Alcohol Use Alcohol Usage: Yes - 40 years ago. 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 - Hobbies, Recreation, Social Activities Hobbies: Hiking - hunting, fishing, boating, working on vehicle., Other Recreational Activities: I am able to engage in most, but not all activities Social Environment - Status Marital Status: - Current Living Arrangements Living Environment:: Spouse - Children How many children do you have?: 2 Do any of your children live nearby?: Yes - at home, one off to college. - Safety Do you feel safe in your surroundings?: Yes - Assistance Do you need any assistance at home?: none Review of Systems - Review of Systems Hints: Right click = Denies (Slash). Left click = Reports ([place]) Review of Present Symptoms: Reports: Shortness of Breath with Exertion - still alittle bit of dypnea depending on activity and speed., Operative Discomfort - wearing support vest device, Fatigue - partly because of difficulty sleeping, Appetite - Special Diet - controlling diet, so learning to adapt to the new program.. Denies: Angina, Dizziness/Lightheadedness, Heart Arrhythmia/Irregularities, Appetite - Normal, Sleep - Normal, Sexual Changes - Pain Is Patient Pain Free?: No Pain Level: 2/10 - dull ache at rest/chest incision Risk Factor Assessment - Chief Complaint Chief Complaint: Dilma is a 57 yr old male patient of Dr. Rodriguez and Dr. Mike Rose who presents to cardiac rehab today following recent CABG procedure for 3 vessel bypass at [facility] on 03/28/2018. Patient is recovering well and adapting to sleep. - Vital Signs Temperature: 98.7 F Respiratory Rate: 16 Pulse Ox: 98 Blood Pressure: 126/68 Nailbeds:: pink - Pulse Pulse Rate: 66 Pulse Rhythm: Regular - Hypertension How long have you been treated?: borderline Hypertension 2- 3 years prior to event. DM for 12 years. On medication(s)?: now Blood Pressure Sitting - Left Arm: 126/68 - Diabetes Diabetic History: Type II, Insulin Dependent - since discharge from hospital has been on insuling Kwikpen - Obesity Height: 5 ft 8 in Weight:: 235 lb Weight in Pounds: 235.0 lbs Weight Source: Standing Scale Body Mass Index (BMI): 35.7 Nutritional Referral for Obesity: Yes - Physical Inactivity Physical Inactivity: None - Risk Stratification Risk Guidelines: Lowest Risk: Risk Factor for Smoking, Risk Factor for Dyslipidemia, Risk Factor for Hypertension, Risk Factor for Sedentary Lifestyle, Risk Factor for Depression, Moderate Risk: Risk Factor for Diabetes, Highest Risk: Risk Factor for Obesity - For Smoking Smoking Risk Guidelines: Smoking Low Risk: None or quit greater than 6 months ago. Smoking Moderate Risk: Smoker or quit 6 months or less ago. Smoking High Risk: Smoker - For Dyslipidemia Dyslipidemia Risk Guidelines: Low Risk: Moderate Risk: High Risk: 15-25% fat 25.1-29% fat >/= 30% fat. <7% sat fat 7-9% sat fat >9% sat fat. <150 mg chol 150-299 mg chol >/= 300 mg chol. LDL <100 LDL 100-129 LDL >/= 130. Chol/HDL ratio <5.0 Chol/HDL ratio 5.0-6.0 Chol/HDL ratio >6.0. Triglycerides <100 Triglycerides 100-149 Triglycerides >/= 150 - For Diabetes Mellitus Diabetes Risk Guidelines: Diabetes Low Risk: HgA1c <6.5% and/or FBG <120. Diabetes Moderate Risk: HgA1c 6.6-7.9% and/or FBG 120- 180. Diabetes High Risk: HgA1c >/= 8% and/or FBG >180 - For Obesity/Overweight Obesity/Overweight Risk Guidelines: Obesity Low Risk: BMI <25.0. Obesity Moderate Risk: BMI 25-29.9. Obesity High Risk: BMI >/= 30.0 - For Hypertension Hypertension Risk Guidelines: Hypertension Low Risk: Systolic <120 and Diastolic <80. Hypertension Moderate Risk: Systolic 120-139 and Diastolic 80-89. Hypertension High Risk: Systolic >/= 140 and Diastolic >/= 90 - For Sedentary Lifestyle Sedentary Lifestyle Risk Guidelines: Sedentary Lifestyle Low Risk: >/= 1,500 kcal/week. Sedentary Lifestyle Moderate Risk: 700-1,499 kcal/week. Sedentary Lifestyle High Risk: < 700 kcal/week - For Depression Depression Risk Guidelines: Depression Low Risk: Not clinically depressed. Depression Moderate Risk: Mildly depressed. Depression High Risk: Clinically depressed Motivation - Motivation to Participate On a scale of 1 to 10, how prepared are you to commit to attending program?: 9 What do you see as barriers to successfully being able to complete the program?: none What do you see as the benefits of succesfully completing the program? In other words, what do you hope to get out of participating in the program?: live longer, retire back down to [place] Are there issues you are dealing with that will interfere with completing the program?: none Do you have a spouse or signficant other, family or friends who will help support you to complete the program?: yes, [facility]. 04/19/18 1206 <Electronically signed by Andre Ramon CRT, UNIVERSITY DEAN, JONATHAN> Date Andre Ramon CRT, UNIVERSITY DEAN, BS Outcome assessment reviewed. Exercise plan approved as documented. Treatment plan and goals support patient needs/abilities. Continue with current plan. I certify the patient demonstrates improvement and remains willing and capable of participation. the patient continues to benefit from cardiac rehab services/training. The patient may continue at current intensity, endurance and modality and progress per protocol. 04/25/18 1256 <Electronically signed by Vlad Rodriguez MD> [facility] Signature: Date Vlad Rodriguez MD CC: Signed PROGRESS Observed: 04/12/2018 Status: COMPLETED Source: [place] 10:58 AM CLINIC OTHER CAMPUS REPOSITORY O ID: [id number] Author: Jazlyn Galicia Service: (none) Author Type: Nurse Practitioner Type: Progress Notes Filed: 04/12/2018 12:05 PM Note Text: HPI:Carlos Buckner is a 57 year old male that returns to the office today for 1 week post-discharge follow up for NSTEMI s/p CABGX4 (QUIJANO-LAD; SVG-Diag; SVG-OM; SVG-PLB) performed on 03/28/2018. His post-operative course was complicated by a brief episode of atrial fibrillation which resolved with amiodaone and concomitant respiratory distress which resolved with the atrial fibrillation. He was discharged home with [facility] on 04/05/2018. Today, Carlos Buckner, reports he is doing well, eating well, ambulating some, sleeping in bed. Pain: reports to be 5 or better. Still requires pain regimen of oxy codone and tylenol CV (Dizzy, palpitations, BP): denies Fever: Denies Diet Resuming regular with focus on high protein Bowel regular Activity gradually increasing C/O Reports some cracking/popping in his chest Subjective: Current Outpatient Prescriptions: lisinopril 2.5 mg tablet Take 1 tablet by mouth once daily. atorvastatin (LIPITOR) 80 mg tablet Take 1 tablet by mouth once daily. acetaminophen (TYLENOL) 325 mg tablet Take 1-2 tablets by mouth every 6 hours as needed for Fever (Temp >38.5C). aspirin 81 mg chewable tablet Take 1 tablet by mouth once daily. bisacodyl (DULCOLAX) 10 mg supp 1 Suppository by RECTAL route once daily as needed. clopidogrel (PLAVIX) 75 mg tablet Take 1 tablet by mouth once daily. melatonin 3 mg tablet Take 1 tablet by mouth at bedtime as needed (insomnia). metoprolol tartrate, short acting, (LOPRESSOR) 50 mg tablet Take 1 tablet by mouth every 8 hours. polyethylene glycol 3350 (MIRALAX, GLYCOLAX) 17 gram packet Take 1 Packet by mouth once daily. senna-docusate (SENNA-S) 8.6-50 mg per tablet Take 1 tablet by mouth twice daily. oxyCODONE-acetaminophen (PERCOCET) 5-325 mg tablet Take 1 tablet by mouth every 6 hours as needed for Pain for up to 7 days. insulin glargine (LANTUS SOLOSTAR, BASAGLAR KWIKPEN) 100 unit/mL (3 mL) inpn Inject 16 Units subcutaneously every morning. insulin lispro (HUMALOG KWIKPEN) 100 unit/mL inpn Inject 6 Units subcutaneously w MEALS. amiodarone (PACERONE) 200 mg tablet Take 1 tablet by mouth as directed. Taper dosing. Take 200mg twice a day for 5 days, then 200mg once a day for 7 days. Insulin Greenwald, Disposable, (LITE TOUCH INSULIN PEN NEEDLES) 29 gauge x 1/2 ndle For insulin injections 4 times daily lvzfqvcr-mnc-UP-lycopen-lutein (MEN 50 PLUS MULTIVITAMIN) 300-600-300 mcg tab Take 1 tablet by mouth once daily. empagliflozin (JARDIANCE) 25 mg tablet Take 1 tablet by mouth once daily. blood sugar diagnostic (BLOOD GLUCOSE TEST) test strip Test blood sugar(s) 2x daily. Dx: E11.65. Insulin: No metFORMIN (GLUCOPHAGE) 1,000 mg tablet Take 1 tablet by mouth twice daily with meals. Blood-Glucose Meter monitoring kit Glucose Meter of Choice - Kit - Dx: Type 2 DM - Uncontrolled E11.65 (per insurance) Lancets lancets Test blood sugar(s) 2x daily. Dx: E11.65. Insulin: No COMPOUNDED PRESCRIPTION CPAP @ 8 cm of water with humidification. Mask (per patient preference) optional chin strap (if indicated) , filters, tubing, humidifier and lifetime supplies. Dx. TEOFILO 327.23 furosemide (LASIX) 20 mg tablet Take 1 tablet by mouth once daily for 5 days. No current facility-administered medications for this visit. Oysters; Shellfish Containing Products PAST MEDICAL HISTORY Diagnosis Date - CAD (coronary artery disease) - HLD (hyperlipidemia) - HTN (hypertension) 06/10/2017 - Obstructive sleep apnea - Type II or unspecified type diabetes mellitus without mention of complication, not stated as uncontrolled PAST SURGICAL HISTORY Procedure Laterality Date - CABG (4) VEIN GRAFTS AND ARTERIAL GRAFT(S) 03/28/2018 - COLONOSCOP W/ OR W/O BRSH SPEC 01/17/15 Colonoscopy - KIDNEY SURGERY HX - LITHOTRIPSY PROC UNILATERAL 2006 left side done in [place] - PAST SURGICAL HISTORY OF dog bite age 5 - PAST SURGICAL HISTORY OF chainsaw injury FAMILY HISTORY Problem Relation Age of Onset - other (polio) Mother - Emphysema Father - Diabetes Maternal Grandfather - COPD Paternal Grandmother - COPD Paternal Grandfather Social History Substance Use Topics - Smoking status: Never Smoker - Smokeless tobacco: Never Used - Alcohol use No Review of Systems Constitutional: Positive for weight loss (10 lbs (expected post op).). Negative for chills, fever and malaise/fatigue. HENT: Negative for sore throat. Eyes: Positive for double vision. Respiratory: Negative for cough, sputum production, shortness of breath and wheezing. Cardiovascular: Negative for chest pain, palpitations, orthopnea, claudication, leg swelling and PND. Gastrointestinal: Negative for abdominal pain, blood in stool, constipation, diarrhea, melena, nausea and vomiting. Genitourinary: Negative for dysuria. Musculoskeletal: Negative for falls and joint pain. Skin: No new lesions Neurological: Negative for dizziness, tingling, sensory change, focal weakness, weakness and headaches. Endo/Heme/Allergies: Does not bruise/bleed easily. Psychiatric/Behavioral: Negative for depression. The patient has insomnia. Objective: Physical Examination: Vitals:BP 100/60 Pulse 64 Resp 18 Ht 5' 9 (1.75m) Wt 235 lb (106.6kg) SpO2 93% BMI 34.69 kg/(m2). BP w/Orthostatic Vitals Date and Time Orthostatic BP Orthostatic Pulse BP Pulse BP Position BP Site BP Cuff Size 04/12/18 1016 -- -- 100/60 -- -- Right Arm -- 04/12/18 1015 -- -- 98/50 64 -- Left Arm -- Peak Flow Date and Time PF Resp 04/12/18 1015 -- 18 Last 2 Encounter Wt Readings: Date: Wt: 04/12/2018 235 lb (106.6 kg) 03/21/2018 244 lb 11.4 oz (111 kg) Physical Exam Constitutional: He is oriented to person, place, and time and well-developed, well-nourished, and in no distress. HENT: Head: Normocephalic. Eyes: Pupils are equal, round, and reactive to light. Cardiovascular: Normal rate, regular rhythm, S1 normal, S2 normal and intact distal pulses. No murmur heard. Pulmonary/Chest: Effort normal and breath sounds normal. Lungs CTAB Abdominal: Soft. Normal appearance and bowel sounds are normal. Musculoskeletal: He exhibits edema (non-pitting). Neurological: He is alert and oriented to person, place, and time. Gait normal. Skin: Skin is warm and intact. Midsternal incision clean dry, well approximated, no redness or drainage Sternum is Stable Ct Sites Scabbed and healing SVG site clean dry, no redness, drainage, or hematoma Psychiatric: Mood and affect normal. Assessment and Plan: ASSESSMENT/PLAN: 1. S/P CABG (coronary artery bypass graft) - ICD9: V45.81, ICD10: Z95.1 - EKG WITH INTERPRETATION - Demonstrates NSR today, remains on Amio for 5 more days. - Continue ASA, Plavix, metoprolol, Statin - CXR for next visit - Consider repeat EKG at next visit. - Cardiac rehab ordered for [facility] - Oxycodone 5mg tablets Q8 hours x 7 days Disp: 21 tablets - Disability paper work filled out in office with copies scanned into his chart and ordinals sent with him. Jazlyn Galicia APRN.[employer] In summary, Carlos Buckner is doing well overall after his MCABG sugery, with no major complaints. he should follow-up in this office in 3 weeks with Chest X-ray. Thanks. Electronically signed by Jazlyn Galicia APRN.CNP on April 12, 2018, 10:58 AM EKG Observed: 04/12/2018 Status: F Source: [place] 10:48 AM [facility] REPOSITORY NAME : CARLOS BUCKNER PID : [id number] : 1960 Gender : Male Race : ORD : Procedure Date : Apr 12 2018 10:48 Edit Date : Apr 13 2018 10:24 Diagnosis:NORMAL SINUS RHYTHM POSSIBLE INFERIOR INFARCT , AGE UNDETERMINED ST & T WAVE ABNORMALITY PROLONGED QT ABNORMAL ECG WHEN COMPARED WITH ECG OF 01-APR-2018 07:14, VENT. RATE HAS DECREASED BY 32 BPM BORDERLINE CRITERIA FOR INFERIOR INFARCT ARE NOW PRESENT ST NO LONGER ELEVATED IN LATERAL LEADS T WAVE INVERSION NO LONGER EVIDENT IN INFERIOR LEADS T WAVE INVERSION NOW EVIDENT IN LATERAL LEADS Confirmed by DO King Jeffrey ([id number]) on 04/13/2018 10:23:56 AM Ventricular Rate : 62 BPM Atrial Rate : 62 BPM P-R Interval : 184 ms QRS Duration : 96 ms Q-T Interval : 508 ms QTC Calculation(Bezet) : 515 ms P [place] : 77 degrees R [place] : 87 degrees T [place] : 111 degrees Test Reason : Location : 157 : [facility] Overread By : DO King Jeffrey Editted By : DO King Jeffrey Referred By : RICK CAMACHO Acquired by : SIVAKUMAR Observed: 04/12/2018 Status: COMPLETED Source: [place] 10:00 AM [facility] [place] REPOSITORY Office Visit (AGVASACC) CARLOS BUCKNER ([id number]) 1960 M Date Time Provider Department 04/12/18 10:00 AM JAZLYN GALICIA During your visit today, we recorded the following information about you: Pulse Respiration Blood pressure Weight 64/minute 18/minute 100/60 106.6 kg Height 1.753 m Jazlyn Galicia APRN.CNP 04/12/2018 12:05 PM Signed HPI:Carlos Buckner is a 57 year old male that returns to the office today for 1 week post-discharge follow up for NSTEMI s/p CABGX4 (QUIJANO- LAD; SVG-Diag; SVG-OM; SVG-PLB) performed on 03/28/2018. His post-operative course was complicated by a brief episode of atrial fibrillation which resolved with amiodaone and concomitant respiratory distress which resolved with the atrial fibrillation. He was discharged home with [facility] on 04/05/2018. Today, Carlos Buckner, reports he is doing well, eating well, ambulating some, sleeping in bed. Pain: reports to be 5 or better. Still requires pain regimen of oxy codone and tylenol CV (Dizzy, palpitations, BP): denies Fever: Denies Diet Resuming regular with focus on high protein Bowel regular Activity gradually increasing C/O Reports some cracking/popping in his chest Subjective: Current Outpatient Prescriptions: lisinopril 2.5 mg tablet Take 1 tablet by mouth once daily. atorvastatin (LIPITOR) 80 mg tablet Take 1 tablet by mouth once daily. acetaminophen (TYLENOL) 325 mg tablet Take 1-2 tablets by mouth every 6 hours as needed for Fever (Temp >38.5C). aspirin 81 mg chewable tablet Take 1 tablet by mouth once daily. bisacodyl (DULCOLAX) 10 mg supp 1 Suppository by RECTAL route once daily as needed. clopidogrel (PLAVIX) 75 mg tablet Take 1 tablet by mouth once daily. melatonin 3 mg tablet Take 1 tablet by mouth at bedtime as needed (insomnia). metoprolol tartrate, short acting, (LOPRESSOR) 50 mg tablet Take 1 tablet by mouth every 8 hours. polyethylene glycol 3350 (MIRALAX, GLYCOLAX) 17 gram packet Take 1 Packet by mouth once daily. senna-docusate (SENNA-S) 8.6-50 mg per tablet Take 1 tablet by mouth twice daily. oxyCODONE-acetaminophen (PERCOCET) 5-325 mg tablet Take 1 tablet by mouth every 6 hours as needed for Pain for up to 7 days. insulin glargine (LANTUS SOLOSTAR, BASAGLAR KWIKPEN) 100 unit/mL (3 mL) inpn Inject 16 Units subcutaneously every morning. insulin lispro (HUMALOG KWIKPEN) 100 unit/mL inpn Inject 6 Units subcutaneously w MEALS. amiodarone (PACERONE) 200 mg tablet Take 1 tablet by mouth as directed. Taper dosing. Take 200mg twice a day for 5 days, then 200mg once a day for 7 days. Insulin [place], Disposable, (LITE TOUCH INSULIN PEN NEEDLES) 29 gauge x 1/2 ndle For insulin injections 4 times daily fnarxnmn-wxz-ZR-lycopen-lutein (MEN 50 PLUS MULTIVITAMIN) 300-600-300 mcg tab Take 1 tablet by mouth once daily. empagliflozin (JARDIANCE) 25 mg tablet Take 1 tablet by mouth once daily. blood sugar diagnostic (BLOOD GLUCOSE TEST) test strip Test blood sugar(s) 2x daily. Dx: E11.65. Insulin: No metFORMIN (GLUCOPHAGE) 1,000 mg tablet Take 1 tablet by mouth twice daily with meals. Blood-Glucose Meter monitoring kit Glucose Meter of Choice - Kit - Dx: Type 2 DM - Uncontrolled E11.65 (per insurance) Lancets lancets Test blood sugar(s) 2x daily. Dx: E11.65. Insulin: No COMPOUNDED PRESCRIPTION CPAP @ 8 cm of water with humidification. Mask (per patient preference) optional chin strap (if indicated) , filters, tubing, humidifier and lifetime supplies. Dx. TEOFILO 327.23 furosemide (LASIX) 20 mg tablet Take 1 tablet by mouth once daily for 5 days. No current facility-administered medications for this visit. Oysters; Shellfish Containing Products PAST MEDICAL HISTORY Diagnosis Date - CAD (coronary artery disease) - HLD (hyperlipidemia) - HTN (hypertension) 06/10/2017 - Obstructive sleep apnea - Type II or unspecified type diabetes mellitus without mention of complication, not stated as uncontrolled PAST SURGICAL HISTORY Procedure Laterality Date - CABG (4) VEIN GRAFTS AND ARTERIAL GRAFT(S) 03/28/2018 - COLONOSCOP W/ OR W/O BRSH SPEC 01/17/15 Colonoscopy - KIDNEY SURGERY HX - LITHOTRIPSY PROC UNILATERAL 2007 left side done in [place] - PAST SURGICAL HISTORY OF dog bite age 5 - PAST SURGICAL HISTORY OF chainsaw injury FAMILY HISTORY Problem Relation Age of Onset - other (polio) Mother - Emphysema Father - Diabetes Maternal Grandfather - COPD Paternal Grandmother - COPD Paternal Grandfather Social History Substance Use Topics - Smoking status: Never Smoker - Smokeless tobacco: Never Used - Alcohol use No Review of Systems Constitutional: Positive for weight loss (10 lbs (expected post op).). Negative for chills, fever and malaise/fatigue. HENT: Negative for sore throat. Eyes: Positive for double vision. Respiratory: Negative for cough, sputum production, shortness of breath and wheezing. Cardiovascular: Negative for chest pain, palpitations, orthopnea, claudication, leg swelling and PND. Gastrointestinal: Negative for abdominal pain, blood in stool, constipation, diarrhea, melena, nausea and vomiting. Genitourinary: Negative for dysuria. Musculoskeletal: Negative for falls and joint pain. Skin: No new lesions Neurological: Negative for dizziness, tingling, sensory change, focal weakness, weakness and headaches. Endo/Heme/Allergies: Does not bruise/bleed easily. Psychiatric/Behavioral: Negative for depression. The patient has insomnia. Objective: Physical Examination: Vitals:BP 100/60 Pulse 64 Resp 18 Ht 5' 9 (1.75m) Wt 235 lb (106.6kg) SpO2 93% BMI 34.69 kg/(m2). BP w/Orthostatic Vitals Date and Time Orthostatic BP Orthostatic Pulse BP Pulse BP Position BP Site BP Cuff Size 04/12/18 1016 -- -- 100/60 -- -- Right Arm -- 04/12/18 1015 -- -- 98/50 64 -- Left Arm -- Peak Flow Date and Time PF Resp 04/12/18 1015 -- 18 Last 2 Encounter Wt Readings: Date: Wt: 04/12/2018 235 lb (106.6 kg) 03/21/2018 244 lb 11.4 oz (111 kg) Physical Exam Constitutional: He is oriented to person, place, and time and well-developed, well-nourished, and in no distress. HENT: Head: Normocephalic. Eyes: Pupils are equal, round, and reactive to light. Cardiovascular: Normal rate, regular rhythm, S1 normal, S2 normal and intact distal pulses. No murmur heard. Pulmonary/Chest: Effort normal and breath sounds normal. Lungs CTAB Abdominal: Soft. Normal appearance and bowel sounds are normal. Musculoskeletal: He exhibits edema (non-pitting). Neurological: He is alert and oriented to person, place, and time. Gait normal. Skin: Skin is warm and intact. Midsternal incision clean dry, well approximated, no redness or drainage Sternum is Stable Ct Sites Scabbed and healing SVG site clean dry, no redness, drainage, or hematoma Psychiatric: Mood and affect normal. Assessment and Plan: ASSESSMENT/PLAN: 1. S/P CABG (coronary artery bypass graft) - ICD9: V45.81, ICD10: Z95.1 - EKG WITH INTERPRETATION - Demonstrates NSR today, remains on Amio for 5 more days. - Continue ASA, Plavix, metoprolol, Statin - CXR for next visit - Consider repeat EKG at next visit. - Cardiac rehab ordered for [facility] - Oxycodone 5mg tablets Q8 hours x 7 days Disp: 21 tablets - Disability paper work filled out in office with copies scanned into his chart and ordinals sent with him. Jazlyn Galicia APRN.CNP In summary, Carlos Buckner is doing well overall after his MCABG sugery, with no major complaints. he should follow-up in this office in 3 weeks with Chest X-ray. Thanks. 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 -Cardiac rehab has been consulted. You will be able to begin cardiac rehab after your next visit with us. [facility] cardiac rehab: [phone] -Feel free to call us if you have questions or concerns Thank you for coming to see me today! Jazlyn Galicia APRN.[employer] Referring Provider: RICK CAMACHO [[id number]] Allergies As of Date: 04/12/2018 Noted Allergy Reaction OYSTERS 06/30/2014 2 - Rash 9 - Itching SHELLFISH CONTAINING PRODUCTS 03/19/2018 2 - Rash Date Reviewed: 04/12/2018 Reviewed by: Jazlyn Galicia - Fully Assessed Reason for Visit: Post Op [174] Cmt: CABG x 4 03/28/18 Primary Visit Diagnosis:S/P CABG (coronary artery bypass graft) [Z95.1] Order(s):EKG WITH INTERPRETATION [[id number]] Order #: [id number]: 1 CONSULT TO CARD REHAB PHASE II [] Order #: [id number]: 1 XR CHEST 2V FRONTAL/LAT [[id number]] Order #: [id number] FUTURE oxyCODONE IR (ROXICODONE) 5 mg immediate release tabletTake 1 tablet by mouth every 8 hours as needed for Pain (moderate to severe pain) for up to 7 days.Disp: 21 tabletRfl: 0 Prescriptions as of 04/12/2018 Sig: LISINOPRIL 2.5 MG TABLET Take 1 tablet by mouth once d* ATORVASTATIN 80 MG TABLET Take 1 tablet by mouth once d* ACETAMINOPHEN 325 MG TABLET Take 1-2 tablets by mouth carissa* ASPIRIN 81 MG CHEWABLE TABLET Take 1 tablet by mouth once d* BISACODYL 10 MG RECTAL SUPPOS* 1 Suppository by RECTAL route* CLOPIDOGREL 75 MG TABLET Take 1 tablet by mouth once d* MELATONIN 3 MG TABLET Take 1 tablet by mouth at bed* METOPROLOL TARTRATE 50 MG TAB* Take 1 tablet by mouth every * POLYETHYLENE GLYCOL 3350 17 G* Take 1 Packet by mouth once d* SENNOSIDES 8.6 MG-DOCUSATE SO* Take 1 tablet by mouth twice * OXYCODONE-ACETAMINOPHEN 5 MG-* Take 1 tablet by mouth every * INSULIN GLARGINE (U-100) 100 * Inject 16 Units subcutaneousl* INSULIN LISPRO (U-100) 100 UN* Inject 6 Units subcutaneously* AMIODARONE 200 MG TABLET Take 1 tablet by mouth as dir* PEN NEEDLE, DIABETIC 29 GAUGE* For insulin injections 4 time* [id number] ACID 300 M* Take 1 tablet by mouth once d* EMPAGLIFLOZIN 25 MG TABLET Take 1 tablet by mouth once d* BLOOD SUGAR DIAGNOSTIC STRIPS Test blood sugar(s) 2x daily.* METFORMIN 1,000 MG TABLET Take 1 tablet by mouth twice * BLOOD-GLUCOSE METER KIT Glucose Meter of Choice - Kit* LANCETS Test blood sugar(s) 2x daily.* COMPOUNDED PRESCRIPTION CPAP @ 8 cm of water with hum* OXYCODONE 5 MG TABLET Take 1 tablet by mouth every * FUROSEMIDE 20 MG TABLET Take 1 tablet by mouth once d* Problem List As Of Date 04/12/2018 Noted Resolved Diabetes mellitus (HCC) [E11.9] INVALID FOR*06/30/2014 More... Hyperlipemia [E78.5] INVALID FOR* TEOFILO (obstructive sleep apnea) [G47.33] INVALID FOR* More... DM (diabetes mellitus), type 2, uncontrolled (H*INVALID FOR* Erectile dysfunction associated with type 2 amberly*INVALID FOR* Special screening for malignant neoplasms, colo*INVALID FOR*01/17/2015 Hypertriglyceridemia [E78.1] INVALID FOR* HTN (hypertension) [I10] INVALID FOR* Chest pain [R07.9] INVALID FOR* CAD (coronary artery disease) [I25.10] INVALID FOR* More... ACS (acute coronary syndrome) (HCC) [I24.9] INVALID FOR* More... NSTEMI (non-ST elevated myocardial infarction) *INVALID FOR* More... 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 -Cardiac rehab has been consulted. You will be able to begin cardiac rehab after your next visit with us. [facility] cardiac rehab: [phone] -Feel free to call us if you have questions or concerns Thank you for coming to see me today! Jazlyn Galicia, TOMAS.[employer] Prescriptions ordered this encounter Disp Refills Start End OXYCODONE 5 MG TABLET 21 t* 0 04/12/2018 04/19/2018 Class: Print RX Route: ORAL Sig: Take 1 tablet by mouth every 8 hours as needed for Pain (moderate to severe pain) for up to 7 days. Encounter Status:Closed by JAZLYN GALICIA CNP on 04/12/18 SALUD Observed: 04/07/2018 Status: COMPLETED Source: [place] 12:00 AM [facility] REPOSITORY Patient Outreach (FAMPWS) CARLOS BUCKNER ([id number]) 1960 M Date Time Provider Department 04/07/18 RICK CAMACHO [facility] During your visit today, we recorded the following information about you: Allergies As of Date: 04/07/2018 Noted Allergy Reaction OYSTERS 06/30/2014 2 - Rash 9 - Itching SHELLFISH CONTAINING PRODUCTS 03/19/2018 2 - Rash Date Reviewed: 04/05/2018 Reviewed by: Jeovany Ferguson - Fully Assessed Reason for Visit: tcm [Other] Prescriptions as of 04/07/2018 Sig: ATORVASTATIN 80 MG TABLET Take 1 tablet by mouth once d* ACETAMINOPHEN 325 MG TABLET Take 1-2 tablets by mouth carissa* ASPIRIN 81 MG CHEWABLE TABLET Take 1 tablet by mouth once d* CLOPIDOGREL 75 MG TABLET Take 1 tablet by mouth once d* MELATONIN 3 MG TABLET Take 1 tablet by mouth at bed* METOPROLOL TARTRATE 50 MG TAB* Take 1 tablet by mouth every * POLYETHYLENE GLYCOL 3350 17 G* Take 1 Packet by mouth once d* POTASSIUM CHLORIDE ER 20 MEQ * Take 1 tablet by mouth once d* SENNOSIDES 8.6 MG-DOCUSATE SO* Take 1 tablet by mouth twice * OXYCODONE-ACETAMINOPHEN 5 MG-* Take 1 tablet by mouth every * INSULIN GLARGINE (U-100) 100 * Inject 16 Units subcutaneousl* PEN NEEDLE, DIABETIC 29 GAUGE* For insulin injections 4 time* X BISACODYL 10 MG RECTAL SUPPOS* 1 Suppository by RECTAL route* X FUROSEMIDE 20 MG TABLET Take 1 tablet by mouth once d* X INSULIN LISPRO (U-100) 100 UN* Inject 6 Units subcutaneously* X AMIODARONE 200 MG TABLET Take 1 tablet by mouth as dir* HCTNKCCH-CQC-GOLPT ACID 300 M* Take 1 tablet by mouth once d* EMPAGLIFLOZIN 25 MG TABLET Take 1 tablet by mouth once d* BLOOD SUGAR DIAGNOSTIC STRIPS Test blood sugar(s) 2x daily.* METFORMIN 1,000 MG TABLET Take 1 tablet by mouth twice * X LISINOPRIL 2.5 MG TABLET Take 1 tablet by mouth once d* BLOOD-GLUCOSE METER KIT Glucose Meter of Choice - Kit* LANCETS Test blood sugar(s) 2x daily.* COMPOUNDED PRESCRIPTION CPAP @ 8 cm of water with hum* Problem List As Of Date 04/07/2018 Noted Resolved Diabetes mellitus (HCC) [E11.9] INVALID FOR*06/30/2014 More... Hyperlipemia [E78.5] INVALID FOR* TEOFILO (obstructive sleep apnea) [G47.33] INVALID FOR* More... DM (diabetes mellitus), type 2, uncontrolled (H*INVALID FOR* Erectile dysfunction associated with type 2 amberly*INVALID FOR* Special screening for malignant neoplasms, colo*INVALID FOR*01/17/2015 Hypertriglyceridemia [E78.1] INVALID FOR* HTN (hypertension) [I10] INVALID FOR* Chest pain [R07.9] INVALID FOR* CAD (coronary artery disease) [I25.10] INVALID FOR* More... ACS (acute coronary syndrome) (HCC) [I24.9] INVALID FOR* More... NSTEMI (non-ST elevated myocardial infarction) *INVALID FOR* More... Malnutrition of mild degree (HCC) [E44.1] INVALID FOR* S/P CABG (coronary artery bypass graft) [Z95.1] INVALID FOR* Encounter Status:Closed by NO LYON on 05/09/18 OBSOLETE Observed: 04/06/2018 Status: COMPLETED Source: [place] 12:00 AM [facility] REPOS[facility]ORY Refill (AKPRAD) CARLOS BUCKNER ([id number]) 1960 M Date Time Provider Department 04/06/18 KAREN BALL (JUAN) DAYAN During your visit today, we recorded the following information about you: Karen Ball APRN.CNP 04/06/2018 10:30 AM Signed Carlos Buckner called the [facility] on the evening of 04/05/18 to request a refill on his Atorvastatin. He was discharged 04/05/18 s/p CABG. I returned his called today. Atorvastatin was sent to his pharmacy at [facility] in [place] per his request. Karen Ball APRN.CNP 04/06/2018 10:30 AM Allergies As of Date: 04/06/2018 Noted Allergy Reaction OYSTERS 06/30/2014 2 - Rash 9 - Itching SHELLFISH CONTAINING PRODUCTS 03/19/2018 2 - Rash Date Reviewed: 04/05/2018 Reviewed by: Jeovany Ferguson - Fully Assessed Reason for Visit: Refill Request [94] Visit Diagnoses:Hyperlipidemia, unspecified hyperlipidemia type [E78.5] Hypertriglyceridemia [E78.1] Order(s):atorvastatin (LIPITOR) 80 mg tabletTake 1 tablet by mouth once daily.Disp: 90 tabletRfl: 1 Prescriptions as of 04/06/2018 Sig: ATORVASTATIN 80 MG TABLET Take 1 tablet by mouth once d* ACETAMINOPHEN 325 MG TABLET Take 1-2 tablets by mouth carissa* ASPIRIN 81 MG CHEWABLE TABLET Take 1 tablet by mouth once d* BISACODYL 10 MG RECTAL SUPPOS* 1 Suppository by RECTAL route* CLOPIDOGREL 75 MG TABLET Take 1 tablet by mouth once d* MELATONIN 3 MG TABLET Take 1 tablet by mouth at bed* METOPROLOL TARTRATE 50 MG TAB* Take 1 tablet by mouth every * POLYETHYLENE GLYCOL 3350 17 G* Take 1 Packet by mouth once d* POTASSIUM CHLORIDE ER 20 MEQ * Take 1 tablet by mouth once d* SENNOSIDES 8.6 MG-DOCUSATE SO* Take 1 tablet by mouth twice * OXYCODONE-ACETAMINOPHEN 5 MG-* Take 1 tablet by mouth every * FUROSEMIDE 20 MG TABLET Take 1 tablet by mouth once d* INSULIN GLARGINE (U-100) 100 * Inject 16 Units subcutaneousl* INSULIN LISPRO (U-100) 100 UN* Inject 6 Units subcutaneously* AMIODARONE 200 MG TABLET Take 1 tablet by mouth as dir* PEN NEEDLE, DIABETIC 29 GAUGE* For insulin injections 4 time* UPOUYNFQ-HAL-NSLEA ACID 300 M* Take 1 tablet by mouth once d* EMPAGLIFLOZIN 25 MG TABLET Take 1 tablet by mouth once d* BLOOD SUGAR DIAGNOSTIC STRIPS Test blood sugar(s) 2x daily.* LISINOPRIL 2.5 MG TABLET Take 1 tablet by mouth once d* METFORMIN 1,000 MG TABLET Take 1 tablet by mouth twice * BLOOD-GLUCOSE METER KIT Glucose Meter of Choice - Kit* LANCETS Test blood sugar(s) 2x daily.* COMPOUNDED PRESCRIPTION CPAP @ 8 cm of water with hum* Problem List As Of Date 04/06/2018 Noted Resolved Diabetes mellitus (HCC) [E11.9] INVALID FOR*06/30/2014 More... Hyperlipemia [E78.5] INVALID FOR* TEOFILO (obstructive sleep apnea) [G47.33] INVALID FOR* More... DM (diabetes mellitus), type 2, uncontrolled (H*INVALID FOR* Erectile dysfunction associated with type 2 amberly*INVALID FOR* Special screening for malignant neoplasms, colo*INVALID FOR*01/17/2015 Hypertriglyceridemia [E78.1] INVALID FOR* HTN (hypertension) [I10] INVALID FOR* Chest pain [R07.9] INVALID FOR* CAD (coronary artery disease) [I25.10] INVALID FOR* More... ACS (acute coronary syndrome) (HCC) [I24.9] INVALID FOR* More... NSTEMI (non-ST elevated myocardial infarction) *INVALID FOR* More... Malnutrition of mild degree (HCC) [E44.1] INVALID FOR* S/P CABG (coronary artery bypass graft) [Z95.1] INVALID FOR* Prescriptions ordered this encounter Disp Refills Start End ATORVASTATIN 80 MG TABLET 90 t* 1 04/06/2018 Route: ORAL Sig: Take 1 tablet by mouth once daily. Medications Discontinued During This Encounter atorvastatin (LIPITOR) 80 mg tablet 30 t* 0 11/01/2017 04/06/2018 Cmt: Please consider 90 day supplies to promote better adherence Sig: TAKE ONE TABLET BY MOUTH ONCE DAILY Disc: Reason for discontinue is not on file. Encounter Status:Closed by KAREN BALL CNP on 04/06/18 CNDS Observed: 04/05/2018 Status: COMPLETED Source: [place] 4:54 PM CLINIC OTHER CAMPUS REPOSITORY O ID: [id number] Author: Tamera Terrazas (Pa) Service: Cardiac Surgery Author Type: Physician Cathode Builder Type: Discharge Summaries Filed: 04/05/2018 4:59 PM Note Text: DISCHARGE SUMMARY PATIENT NAME: Carlos Buckner Code Status: Not on file Highest Readmission Risk Score: 18 The 30 day readmissions risk score is derived from an internally validated risk model which evaluates patient level characteristics, utilization history, medication orders and lab results up until the day of discharge. Patients with a score of 40 or above are considered highest risk for readmission. Specific patient level drivers will be listed at the bottom of the summary. Admission Information Admission Information ADMIT DATE: 03/21/2018 DISCHARGE DATE: 04/05/2018 MY DOCTORS AND MEDICAL TEAM: My Main Hospital Doctor: Mike Rose Primary Care Provider: Rick Camacho MD My Medical Team Members: Treatment Team: Attending Provider: Mike Rose Consulting: Mike Rose Consulting: Shanice Brooks Consulting: Ifeoma Cadena Consulting: Orlando Lobo MY CONDITION AT DISCHARGE: Stable REASON I WAS IN THE HOSPITAL: CAD requiring Coronary Artery Bypass Grafting SUMMARY OF WHAT HAPPENED WHILE I WAS IN THE HOSPITAL: [facility]ed [facility] with chest pain, described as dull sensation with radiation to both shoulders and anterior neck, associated with mild SOB. He had initially negative troponin, his EKG at the time showed: sinus tachycardia with no acute EKG changes. He was then treated with ASA and nitro with improvement in symptoms but his troponin subsequent positive post medical therapy of ASA and Nitro, which peaked at 2.14. He underwent Heart cath and found 3 vessel disease then was loaded with Plavix and transferred to [facility] for CABG evaluation. Underwent CABG on 03/28/2018. Post-Op recovery complicated by one episode of Afib RVR and he will go home on taper dose of amiodarone. OTHER PROBLEMS/DIAGNOSIS: Active Problems: Hyperlipemia TEOFILO (obstructive sleep apnea) DM (diabetes mellitus), type 2, uncontrolled (HCC) Chest pain CAD (coronary artery disease) ACS (acute coronary syndrome) (HCC) NSTEMI (non-ST elevated myocardial infarction) (HCC) Malnutrition of mild degree (HCC) S/P CABG (coronary artery bypass graft) Resolved Problems: * No resolved hospital problems. * OPERATIONS PERFORMED WHILE IN THE HOSPITAL: Coronary Artery Bypass Grafting IMPORTANT TEST/PROCEDURES: Access Placement: Central line in right IJ and Echocardiogram TEST RESULTS NOT AVAILABLE AT THIS TIME: No pending results Discharge Disposition Discharge Disposition: Home With Home Care Activity When You Leave the Hospital Lifting is restricted to: Less than 10 pounds. May use stairs No driving until cleared by surgeon. Shower and wash incisions daily. No tub bath. Diet Instructions Heart Healthy Fluid restriction 2 liters per day. For Pain When You Leave the Hospital You should use an [id number] stool softener (Docusate sodium) and/or a fiber supplement (Metamucil, Fiber Con) every day while taking prescribed pain medication Wound/Surgical Site Care Wash your hands frequently, especially before touching your incision, after using restroom and before eating Your incision has skin glue. It will peel off on its own. It can get wet Call Your Doctor If Other: Shortness of breath, chest pain, weight gain, swelling of legs There is an unusual odor from the wound area There is severe pain at the operative site You have lightheadedness, fainting, or confusion You have redness, swelling, pus or drainage from the wound Your temperature is greater than 101F Follow Up Appointments Follow-Up Appointment With: Cardiology When: In 6 weeks Patient/Parents to call for appointment?: Yes Call [phone] to schedule. Follow-Up Appointment [address] [facility], [place], [place] [id number] Enter thru [facility] and take the silver elevator to the 3rd floor. The office is immediately on the right. When: In 1 week Patient/Parents to call for appointment?: Scheduled Jazlyn Galicia [phone] [address] [facility] [id number] PCP Requested Referral Transitions of Care Critical Issues: none LABS AND PROCEDURES PENDING AT DISCHARGE: No pending results. FOLLOW-UP APPOINTMENTS ALREADY SCHEDULED WITH A [facility] PROVIDER: Future Appointments Date Time Provider Department Center 04/12/2018 10:00 AM Jazlyn Galicia [facility] Ambulator Discharge Information Row Name Admission (Current) from 03/21/2018 in [place] [facility] Agency ? Phone# ? ALLERGIES Allergen Reactions - Oysters Rash, Itching - Shellfish Containin* Rash DISCHARGE MEDICATION: Current Discharge Medication List START taking these medications acetaminophen (TYLENOL) 325-650 mg Take 325-650 mg by mouth every 6 hours as needed for Fever (Temp >38.5C). aspirin 81 mg Take 81 mg by mouth once daily. bisacodyl (DULCOLAX) 10 mg 10 mg by RECTAL route once daily as needed. clopidogrel (PLAVIX) 75 mg Take 75 mg by mouth once daily. Qty: 30 tablet Refills: 5 melatonin 3 mg Take 3 mg by mouth at bedtime as needed (insomnia). metoprolol tartrate (short acting) (LOPRESSOR) 50 mg Take 50 mg by mouth every 8 hours. Qty: 90 tablet Refills: 2 polyethylene glycol 3350 (MIRALAX, GLYCOLAX) 17 g Take 17 g by mouth once daily. potassium chloride ER (K-DUR, KLOR-CON) 20 mEq Take 20 mEq by mouth once daily. Qty: 5 tablet Refills: 0 senna-docusate (SENNA-S) 1 tablet Take 1 tablet by mouth twice daily. oxyCODONE-acetaminophen (PERCOCET) 1 tablet Take 1 tablet by mouth every 6 hours as needed for Pain. Earliest Fill Date: 04/05/18 Qty: 28 tablet Refills: 0 Associated Diagnoses:S/P CABG (coronary artery bypass graft) furosemide (LASIX) 20 mg Take 20 mg by mouth once daily. Qty: 5 tablet Refills: 0 insulin glargine (LANTUS SOLOSTAR, BASAGLAR KWIKPEN) 16 Units Inject 16 Units subcutaneously every morning. Qty: 15 mL Refills: 3 insulin lispro (HumaLOG KWIKPEN) 6 Units Inject 6 Units subcutaneously w MEALS. Qty: 15 mL Refills: 3 amiodarone (PACERONE) 200 mg Take 200 mg by mouth as directed. Taper dosing. Take 200mg twice a day for 5 days, then 200mg once a day for 7 days. Qty: 49 tablet Refills: 0 Insulin Greenwald, Disposable, (LITE TOUCH INSULIN PEN NEEDLES) 29 gauge x 1/2 ndle For insulin injections 4 times daily Qty: 100 Each Refills: 3 CONTINUE these medications which have NOT CHANGED yfaosudn-dna-DA-lycopen-lutein 1 tablet Take 1 tablet by mouth once daily. empagliflozin (JARDIANCE) 25 mg Take 25 mg by mouth once daily. Qty: 90 tablet Refills: 3 metFORMIN (GLUCOPHAGE) 1,000 mg Take 1,000 mg by mouth twice daily with meals. 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 Dx: E11.65. 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 Qty: 30 tablet Refills: 5 Associated Diagnoses:Uncontrolled type 2 diabetes mellitus with complication, unspecified custodial insulin use status (HCC); Elevated blood pressure reading without diagnosis of hypertension Blood-Glucose Meter monitoring kit Glucose Meter of Choice - Kit - Dx: Type 2 DM - Uncontrolled E11.65 (per insurance) Qty: 1 Each Refills: 0 Associated Diagnoses:Uncontrolled type 2 diabetes mellitus with complication, unspecified custodial insulin use status ([facility]) Lancets lancets Test blood sugar(s) 2x daily. Dx: E11.65. Insulin: No Qty: 100 Each Refills: 11 Associated Diagnoses:Uncontrolled type 2 diabetes mellitus with complication, unspecified custodial insulin use status (HCC) COMPOUNDED PRESCRIPTION CPAP @ 8 cm of water with humidification. Mask (per patient preference) optional chin strap (if indicated) , filters, tubing, humidifier and lifetime supplies. Dx. TEOFILO 327.23 Qty: 1 Device Refills: 0 Associated Diagnoses:TEOFILO (obstructive sleep apnea) STOP taking these medications glimepiride (AMARYL) 4 mg Comments: Reason for Stopping: Ibuprofen 200 mg Comments: Reason for Stopping: Discharge Physical Exam: VITAL SIGNS: BP 115/62 Pulse 68 Temp 36.8 ?C (98.2 ?F) (Tympanic) Resp 20 Ht 172.7 cm (5' 7.99) Wt 111 kg (244 lb 11.4 oz) SpO2 94% BMI 37.22 kg/m? See daily progress note The patient's risk for 30-day readmission is determined using the following contributing factors: Pt variables contributing to increased readmission risk: 26 Active Medication Orders 21 Most Recent BUN Result 8.8 First Resulted Calcium During Admission 1 Insurance - Medicaid 1 Discharge Disposition - Home 1 Active Anticoagulant TIME OF CARE: Discharge Management: I personally spent greater than 30 minutes involved in the discharge management of this patient. NSTEMI with severe 3V CAD s/p CABG x3 -POD#7 -c/w ASA, statin, BB -Start Plavix today 75 mg QDAY -Encouraged post thorax vest -Pain control -IS/ ambulation ? Post op afib with RVR -Currently?NSR. -Continue Metoprolol to 50mg TID, amiodarone 400 TID -Monitor lytes ? Anticipated acute hypoxic respiratory insufficiency -2/2 acute pulmonary edema/ atelectasis (+ 4Kg) -Continue lasix; Will supplement K+ to prevent arrhythmias -Incentive spirometer -Increase activity -Will send home on 20 lasix x 5 days and 20 K x 5 days ? Anticipation acute blood loss anemia -Hgb trending up (from yesterday's labs, no labs today) -No transfusion indicated ? DM -Insulin/metformin per Endocrinology -Plan to d/c on metformin, jardiance, and insulin -Will need F/u with [facility] in Endocrine 2 weeks post discharge ? TEOFILO -Continue CPAP QHS ? HTN -On BB -Resart low dose ACEi ? DVT PPX -SCD/ Loveneox ? SIGNATURE: Tamera Terrazas PA-C PAGER/CONTACT #: [phone] DATE: April 05, 2018 TIME: 4:54 PM PLAN OF CARE Observed: 04/05/2018 Status: COMPLETED Source: [place] 4:20 PM CLINIC OTHER CAMPUS REPOSITORY O ID: [id number] Author: Ivon Gordon ([employer]) Service: (none) Author Type: (none) Type: Plan of Care Filed: 04/05/2018 4:21 PM Note Text: PHARMACY BEDSIDE DELIVERY SERVICE Patient Name: Carlos Buckner The marked outpatient medications were Filled at: [place] and delivered to the patient's bedside to PATIENT, KENYETTA BROOKS NOTIFIED Medication List START taking these medications acetaminophen 325 mg tablet Commonly known as: TYLENOL Take 1-2 tablets by mouth every 6 hours as needed for Fever (Temp >38.5C). amiodarone 200 mg tablet Commonly known as: PACERONE Take 1 tablet by mouth as directed. Taper dosing. Take 200mg twice a day for 5 days, then 200mg once a day for 7 days. aspirin 81 mg chewable tablet Take 1 tablet by mouth once daily. bisacodyl 10 mg Supp Commonly known as: DULCOLAX 1 Suppository by RECTAL route once daily as needed. clopidogrel 75 mg tablet Commonly known as: PLAVIX Take 1 tablet by mouth once daily. furosemide 20 mg tablet Commonly known as: LASIX Take 1 tablet by mouth once daily for 5 days. insulin glargine 100 unit/mL (3 mL) Inpn Commonly known as: LANTUS SOLOSTAR, BASAGLAR KWIKPEN Inject 16 Units subcutaneously every morning. insulin lispro 100 unit/mL Inpn Commonly known as: HumaLOG KWIKPEN Inject 6 Units subcutaneously w MEALS. Insulin Greenwald (Disposable) 29 gauge x 1/2 Ndle Commonly known as: LITE TOUCH INSULIN PEN NEEDLES For insulin injections 4 times daily melatonin 3 mg tablet Take 1 tablet by mouth at bedtime as needed (insomnia). metoprolol tartrate (short acting) 50 mg tablet Commonly known as: LOPRESSOR Take 1 tablet by mouth every 8 hours. oxyCODONE-acetaminophen 5-325 mg tablet Commonly known as: PERCOCET Take 1 tablet by mouth every 6 hours as needed for Pain for up to 7 days. polyethylene glycol 3350 17 gram packet Commonly known as: MIRALAX, GLYCOLAX Take 1 Packet by mouth once daily. potassium chloride ER 20 mEq tablet Commonly known as: K-DUR, KLOR-CON Take 1 tablet by mouth once daily for 5 days. senna-docusate 8.6-50 mg per tablet Commonly known as: SENNA-S Take 1 tablet by mouth twice daily. CONTINUE taking these medications atorvastatin 80 mg tablet Commonly known as: LIPITOR TAKE ONE TABLET BY MOUTH ONCE DAILY blood sugar diagnostic test strip Commonly known as: BLOOD GLUCOSE TEST Test blood sugar(s) 2x daily. Dx: E11.65. Insulin: No Blood-Glucose Meter monitoring kit Glucose Meter of Choice - Kit - Dx: Type 2 DM - Uncontrolled E11.65 (per insurance) COMPOUNDED PRESCRIPTION CPAP @ 8 cm of water with humidification. Mask (per patient preference) optional chin strap (if indicated) , filters, tubing, humidifier and lifetime supplies. Dx. TEOFILO 327.23 empagliflozin 25 mg tablet Commonly known as: JARDIANCE Take 1 tablet by mouth once daily. Lancets lancets Test blood sugar(s) 2x daily. Dx: E11.65. Insulin: No lisinopril 2.5 mg tablet Take 1 tablet by mouth once daily. MEN 50 PLUS MULTIVITAMIN 300-600-300 mcg Tab Generic drug: wrzrovek-bdq-ZU-lycopen-lutein metFORMIN 1,000 mg tablet Commonly known as: GLUCOPHAGE Take 1 tablet by mouth twice daily with meals. You might also be taking other medications not listed above. If you have questions about any of your other medications, talk to the person who prescribed them or your Primary Care Provider. STOP taking these medications glimepiride 4 mg tablet Commonly known as: AMARYL Ibuprofen 200 mg Cap Ivon Gordon ([employer]) PHONE:[place] [phone] or [phone] April 05, 2018 4:20 PM PT ED Observed: 04/05/2018 Status: COMPLETED Source: [place] 2:50 PM [facility] RE[facility] HNO ID: [id number] Author: Dilma Darden (Pharmacist) Service: Pharmacy Author Type: Pharmacist Type: Patient Education Filed: 04/05/2018 2:55 PM Note Text: PHARMACY DISCHARGE MEDICATION COUNSELING PATIENT NAME: Carlos Buckner DATE of SERVICE: 04/05/18 TIME of SERVICE: 1430 The patient accepted medication counseling for the discharge medications below. The patient was given the opportunity to ask questions regarding medication indication, interactions and side effects. Discharge Medications: Humalog Lantus Pen needles Amiodarone Metoprolol Lasix Potassium Plavix Percocet Patient verbalizes understanding of counseling. Signature: DILMA DARDEN PHARMACIST Pager: [phone] Date: April 05, 2018 Time: 2:50 PM PROGRESS Observed: 04/05/2018 Status: COMPLETED Source: [place] 2:45 PM [facility] OTHER [place] REPOSITORY HNO ID: [id number] Author: Jeovany Ferguson Service: Critical Care Author Type: Physician Type: Progress Notes Filed: 04/05/2018 2:56 PM Note Text: MICU - PROGRESS NOTE SERVICE DATE: 04/05/2018 SERVICE TIME: 2:45 PM Admission Date: 03/21/2018 AGE: [age] year old LOS: 15 days Subjective REASON FOR ICU ADMISSION: Atelectasis, Atrial Fibrillation, TEOFILO and S/P Surgery. Uneventful night. No SOB but chest still sore and uncomfortable. SaO2 93-95% on RA. Setting up in chair. Wore his home CPAP last HS. Objective VITAL SIGNS (last 24hrs min/max): Temp Av.2 ?C (97.2 ?F) Min: 36.1 ?C (97 ?F) Max: 36.3 ?C (97.3 ?F) Pulse Av.9 Min: 61 Max: 84 No Data Recorded Cuff BP Min: 78/59 Max: 117/72 Pain Score: 5/10 Vital signs reviewed. BP 105/48 Pulse 70 Temp (Src) 97.3 (Tympanic) Resp 18 Ht 5' 7.992 (1.73m) Wt 244 lb 11.4 oz (111.0kg) SpO2 95% BMI 37.22 kg/(m2). Temp (24hrs), Av.2 ?C (97.2 ?F), Min:36.1 ?C (97 ?F), Max:36.3 ?C (97.3 ?F) NET FLUID BALANCE Intake/Output Summary (Last 24 hours) at 04/05/18 1445 Last data filed at 04/05/18 1300 Gross per 24 hour Intake 480 ml Output 1850 ml Net -1370 ml MEDICATIONS Current Facility-Administered Medications: insulin lispro 6 Units pen (rapid acting) (HumaLOG KWIKPEN) 6 Units SUBCUTANEOUS w MEALS lisinopril 2.5 mg tab(s) 2.5 mg ORAL DAILY potassium chloride ER 20 mEq tab(s) (K-DUR, KLOR-CON) 20 mEq ORAL TID clopidogrel 75 mg tab(s) (PLAVIX) 75 mg ORAL DAILY metFORMIN 1,000 mg tab(s) (GLUCOPHAGE) 1,000 mg ORAL BID w MEALS amiodarone 400 mg tab(s) (PACERONE) 400 mg ORAL TID 0.9% NaCl 2-10 mL 2-10 mL INTRAVENOUS q 12 H atorvastatin 80 mg tab(s) (LIPITOR) 80 mg ORAL AT BEDTIME enoxaparin 40 mg injection (LOVENOX) 40 mg SUBCUTANEOUS q [address] 40 mg tab(s) (PROTONIX) 40 mg ORAL DAILY (6 AM) polyethylene glycol 3350 17 g packet (MIRALAX, GLYCOLAX) 17 g ORAL DAILY senna-docusate 8.6-50 mg 1 tablet (SENNA-S) 1 tablet ORAL BID acetaminophen 325-650 mg tab(s) (TYLENOL) 325-650 mg ORAL q 6 H PRN albuterol 2.5 mg /3 mL (0.083 %) 2.5 mg (PROVENTIL) 2.5 mg INHALATION q 2 H PRN melatonin 3 mg tab(s) 3 mg ORAL HS PRN morphine 2 mg injection 2 mg INTRAVENOUS q 2 H PRN ondansetron (PF) 4 mg injection (ZOFRAN) 4 mg INTRAVENOUS q 6 H PRN oxyCODONE IR 5-10 mg tab(s) (ROXICODONE) 5-10 mg ORAL q 3 H PRN pill splitter (patient-specific) 1 Each Miscell. (Med.Supl.;Non- Drugs) PRN bisacodyl 10 mg suppository (DULCOLAX) 10 mg RECTAL DAILY PRN metoprolol tartrate (short acting) 50 mg tab(s) (LOPRESSOR) 50 mg ORAL q 8 H dextrose 40 % 15 g 15 g ORAL PRN Or glucagon 1 mg injection (GLUCAGEN) 1 mg INTRAMUSCULAR PRN Or dextrose 50% in water 25 mL syringe 12.5 g INTRAVENOUS PRN insulin lispro pen (rapid acting) (HumaLOG KWIKPEN) SUBCUTANEOUS w MEALS Lines, Drains, and Airways Line Peripheral Assessment Short Left Forearm 20 Gauge -- days Peripheral 03/31/18 1119 Short Left Antecubital 20 Gauge 5 days PHYSICAL EXAM PERFORMED: HEENT: Grade IV airway. No thrush. Oral Mucosa: Moist mucous membranes Feeding Tube: No Eyes: PERRLA Neck: Unremarkable; No adenopathy or JVD Cardiovascular: Regular rhythm and NSR on monitor. Respiratory: Clear to auscultation and decreased left base. No Data Recorded Abdomen: Soft, Nontender and Positive bowel sounds Extremities: Edema- Yes and trace pitting LE edema. Peripheral Pulses- Present all extremities Capillary Refill- less than 3 seconds Skin: Abnormalities- No Neurologic: Awake, oriented, Alert, Follows commands and Moving all extremities Respiratory/Nursing Documentation: O2 Therapy: Room Air (04/05/18 1200) Invasive Ventilator Mode: Continuous Positive Airway Pressure;Pressure Support Ventilation (found on CPAP per RN, not notified.) (03/28/182350) Set Ventilator Respiratory Rate (BPM): 12 (03/28/182212) Total Respiratory Rate (BPM): 22 (03/28/182350) Tidal Volume Set (mL): 500 (03/28/182212) Exhaled Tidal Volume (mL): 502 (03/28/182350) Minute Volume (L): 10.8 (03/28/182350) Peak Inspiratory Pressure (cm H2O): 16 (03/28/182350) PEEP/CPAP (cm H2O): 5 (03/28/182350) HEMODYNAMIC DATA: NUTRITION: Enteral Feeds: Yes Cardiac diet. DATA: Diagnostic tests reviewed for today's visit: Most recent labs and imaging results. LABS: Recent Labs 04/04/18 0805 04/03/18 0700 WBC 7.52 -- RBC 2.57* -- HB 8.2* -- HCT 24.8* -- MCV 96.5* -- PLT 322 -- GLUC 85 -- BUN 21* -- CREAT 1.03 -- NA 136 -- K 4.0 -- CHLOR 101 -- CO2 26 -- CA 8.4* -- MG -- 2.2 ABG: Invalid input(s): [id number] CULTURES: N/A CXR FINDINGS: None today Assessment/Plan PROBLEMS: ACTIVE PROBLEM LIST Hyperlipemia Teofilo (Obstructive Sleep Apnea) Dm (Diabetes Mellitus), Type 2, Uncontrolled ([facility]) Erectile Dysfunction Associated With Type 2 Diabetes Mellitus ([facility]) Hypertriglyceridemia Htn (Hypertension) Chest Pain Cad (Coronary Artery Disease) Acs (Acute Coronary Syndrome) ([facility]) Nstemi (Non-St Elevated Myocardial Infarction) ([facility]) Malnutrition of Mild Degree ([facility]) S/P Cabg (Coronary Artery Bypass Graft) 1. POD #8 CABG x 4 on 03/28/18 after acute NSTEMI on admission 2. Resolved hypoxia 3. TEOFILO on home CPAP 4. Post-op PAFib with RVR 5. Type II DM PLANS FOR TODAY: CRITICAL CARE PLAN: CPAP/BIPAP and progressive ambulation. Nothing to add from lung standpoint. OK to leave CVICU from pulmonary standpoint. This patient has a high probability of sudden, clinically significant deterioration, which requires the highest level of physician preparedness to intervene urgently. I managed/supervised life or organ supporting interventions that required frequent physician assessment. I devoted my full attention to the direct care of this patient for the amount of time indicated below. Time I spent with family or surrogate(s) is included only if the patient was incapable of providing the necessary information or participating in medical decision making. Time devoted to teaching is not included. Patient Updated Yes Family Updated No Discussed with Staff Yes Time spent providing critical care services: 30 minutes excluding procedures. SIGNATURE: Jeovany Ferguson MD PATIENT NAME: Carlos Buckner DATE: April 05, 2018 TIME: 2:45 PM PAGER/CONTACT #: [phone] PLAN OF CARE Observed: 04/05/2018 Status: COMPLETED Source: [place] 2:41 PM [facility] REPOSITORY HNO ID: [id number] Author: Ivon Gordon ([employer]) Service: (none) Author Type: (none) Type: Plan of Care Filed: 04/05/2018 2:42 PM Note Text: Pharmacy Discharge Medication Service: This patient has elected to receive their discharge prescriptions through the [facility] Bedside Prescription Delivery program. The prescriptions are currently being processed. A follow-up note will be entered once the prescriptions have been filled and delivered to the patient. Please contact me with any questions or updates to the patient's discharge medications. 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 Patient to use [facility] Bedside Delivery - YES 2. If fax, patient would like us to fax prescriptions to Pharmacy of choice a. Pharmacy: b. Location: c. Phone: 3. Insurance card on file - YES 4. Credit card for payment - N/A [place] Christie Basaglar Kwikpen Pen Greenwald Lasix 20 mg Klor con M20 meq Plavix 75 mg Lopressor 50 mg Percocet 5/325 mg Pacerone 200 mg Contact Ivon at [phone] with questions prior to discharge CONSULT PROG Observed: 04/05/2018 Status: COMPLETED Source: [place] 12:20 PM CLIN[facility] OTHER CAMPUS REPOSITORY HNO ID: [id number] Author: Ifeoma Cadena Service: Endocrinology Author Type: Physician Type: Consult Progress Note Filed: 04/05/2018 12:56 PM Note Text: ENDOCRINOLOGY CONSULT PROGRESS NOTE SERVICE DATE: 06/05/2017 SERVICE TIME: 12:21 PM Subjective INTERVAL HPI: pt seen for diabetes mellitus; was on Levemir 30 units qam and prandial humalog 10 units qac tid plus correction prior to surgery; iv insulin gtt stopped 03/31/18, now on levemir 20 units qam and humalog 8 units qac tid; eating better; no nausea; s/p CABG 03/28; poor po intake with breakfast today (had juice) DIET HEART HEALTHY Recent Labs 04/05/18 1136 04/05/18 0717 04/04/18 2118 04/04/18 0805 GLUC -- -- -- -- 85 GLUCOSEMETER 194* 88 92 < > -- < > = values in this interval not displayed. Current hospital medications: [START ON 04/06/2018] aspirin 81 mg chewable tab(s) 81 mg ORAL DAILY furosemide 40 mg tab(s) (LASIX) 40 mg ORAL ONCE [START ON 04/06/2018] insulin glargine 16 Units pen (long acting) (LANTUS SOLOSTAR, BASAGLAR KWIKPEN) 16 Units SUBCUTANEOUS DAILY (8 AM) insulin lispro 6 Units pen (rapid acting) (HumaLOG KWIKPEN) 6 Units SUBCUTANEOUS w MEALS lisinopril 2.5 mg tab(s) 2.5 mg ORAL DAILY potassium chloride ER 20 mEq tab(s) (K-DUR, KLOR-CON) 20 mEq ORAL TID clopidogrel 75 mg tab(s) (PLAVIX) 75 mg ORAL DAILY metFORMIN 1,000 mg tab(s) (GLUCOPHAGE) 1,000 mg ORAL BID w MEALS amiodarone 400 mg tab(s) (PACERONE) 400 mg ORAL TID 0.9% NaCl 2-10 mL 2-10 mL INTRAVENOUS q 12 H atorvastatin 80 mg tab(s) (LIPITOR) 80 mg ORAL AT BEDTIME enoxaparin 40 mg injection (LOVENOX) 40 mg SUBCUTANEOUS q [address] 40 mg tab(s) (PROTONIX) 40 mg ORAL DAILY (6 AM) polyethylene glycol 3350 17 g packet (MIRALAX, GLYCOLAX) 17 g ORAL DAILY senna-docusate 8.6-50 mg 1 tablet (SENNA-S) 1 tablet ORAL BID acetaminophen 325-650 mg tab(s) (TYLENOL) 325-650 mg ORAL q 6 H PRN albuterol 2.5 mg /3 mL (0.083 %) 2.5 mg (PROVENTIL) 2.5 mg INHALATION q 2 H PRN melatonin 3 mg tab(s) 3 mg ORAL HS PRN morphine 2 mg injection 2 mg INTRAVENOUS q 2 H PRN ondansetron (PF) 4 mg injection (ZOFRAN) 4 mg INTRAVENOUS q 6 H PRN oxyCODONE IR 5-10 mg tab(s) (ROXICODONE) 5-10 mg ORAL q 3 H PRN pill splitter (patient-specific) 1 Each Miscell. (Med.Supl.;Non- Drugs) PRN bisacodyl 10 mg suppository (DULCOLAX) 10 mg RECTAL DAILY PRN metoprolol tartrate (short acting) 50 mg tab(s) (LOPRESSOR) 50 mg ORAL q 8 H dextrose 40 % 15 g 15 g ORAL PRN glucagon 1 mg injection (GLUCAGEN) 1 mg INTRAMUSCULAR PRN dextrose 50% in water 25 mL syringe 12.5 g INTRAVENOUS PRN insulin lispro pen (rapid acting) (HumaLOG KWIKPEN) SUBCUTANEOUS w MEALS Objective PHYSICAL EXAM: BP 103/59 Pulse 69 Temp (Src) 97.3 (Tympanic) Resp 18 Ht 5' 8 (1.73m) Wt 244 lb 11.4 oz (111.0kg) SpO2 93% BMI 37.22 kg/(m2). General: some distress , alert, well-hydrated, well nourished;Obese Skin: skin color, texture, turgor normal, no rashes or lesions. Head: normocephalic, no masses, lesions, tenderness or abnormalities. Eyes: SUSAN,EOMI Oropharynx: moist Neck: Supple, no adenopathy; thyroid symmetric, normal size, no bruits Chest: midsternal incision c/d/i Heart: RRR without murmur, gallop, or rubs. No ectopy Abdomen: soft, non-tender, positive bowel sounds Extremities: no edema, no calluses or ulcers present. Peripheral Pulses: posterior tibial and doralis pedis pulses 2+ and symmetrical ? DATA: Diagnostic tests reviewed for today's visit: Most recent labs and imaging results. Assessment/Plan DM (diabetes mellitus), type 2, uncontrolled; HbA1c 8.2; on oral antihyperglycemics (Metformin/Amaryl/Jardiance) at home; now with complications; ? CAD (coronary artery disease) severe. ?ACS (acute coronary syndrome) s/p revascularization on 03/28 ? Hyperlipemia POA: Yes Assessment AND Plan: per 1 service ? TEOFILO (obstructive sleep apnea) POA: Yes Assessment AND Plan: per 1 service. ? Recommendations: discontinued oral antihyperglycemics; now on prog insulin decrese levemir 16 units qam, Humalog 6 units qac plus correction; iv insulin gtt discontinued 03/31/18 use humalog for correction; avoid hypoglycmia; cont metformin; resume Jardiance 25 mg po daily at home when able to take good po. F/U in [facility] [phone] to call and make appt. SIGNATURE: Ifeoma Cadena MD PATIENT NAME: Carlos Buckner DATE: April 05, 2018 TIME: 12:41 PM PAGER: [phone] ALLIED HEALTH Observed: 04/05/2018 Status: COMPLETED Source: [facility] 11:54 AM CLINIC OTHER CAMPUS REPOSITORY HNO ID: [id number] Author: Rene Mckeon (Ex Phys) Service: Cardiovascular Testing Author Type: Greenhouse Staff Type: Allied Health Filed: 04/05/2018 11:56 AM Note Text: CARDIAC REHABILITATION PATIENT EDUCATION PROGRESS NOTE Name: Carlos Buckner Date of Service: Patient would like to see someone today. Time of Service: 11:55 AM I reinforced cardiac rehab teaching from Mio Cochran. This was done over the phone to patient's spouse. ASSESSMENT: Signature: Hardik Galloway Pager: [phone] Date: April 05, 2018 Time: 11:55 AM GLUCOSE METER Collected: 04/05/2018 Status: F Source: [facility] 11:36 AM HEALTH SYSTEM REPOSITORY TYPE CODE TESTS RESULT OUT OF REFERENCE UNITS RANGE LAB GLUBL(LOINC 70-99 mg/dL ) High Glucose Meter 194 Result Comment: RN NOTIFIED Performed By: #### GLMET #### [place] [id number] CASE MANAGEM Observed: 04/05/2018 Status: COMPLETED Source: [facility] 11:34 AM [facility] OTHER [place] REPOSITORY HNO ID: [id number] Author: Janna (Rn) KENYETTA Lind Service: Care Management Author Type: Registered Nurse Type: Care Mgt Progress Note Filed: 04/05/2018 11:38 AM Note Text: CARE MANAGEMENT DISCHARGE NOTE SERVICE DATE: 04/05/2018 SERVICE TIME: 11:34 AM LOS: 15 days Admission Date: 03/21/2018 DISCHARGE ARRANGEMENT (list agency and phone number) Home Home Care - Nursing Provider: [facility] CAREGIVER ASSESSMENT: Caregiver is ready, willing and able to meet the patient's needs as recommended by the inter-professional team? Yes Patient's transition needs and plan for meeting these needs: home with VNS Does the patient have an acute stroke diagnosis, or has the patient had a stroke during this admission? No HANDOFF COMMUNICATION: . TRANSPORTATION ARRANGEMENTS: Car personal family vehicle ADDITIONAL CONTACT RESOURCES: Disch to home with 24/7 and VNS for SN. SIGNATURE: Janna Lind RN PATIENT NAME: Carlos Buckner DATE: April 05, 2018 TIME: 11:34 AM PAGER/CONTACT #: [phone] PROGRESS Observed: 04/05/2018 Status: COMPLETED Source: [facility] 11:27 AM [facility] OTHER [place] REPOSITORY HNO ID: [id number] Author: aTmera Terrazas (Pa) Service: Cardiac Surgery Author Type: Physician Cathode Builder Type: Progress Notes Filed: 04/05/2018 12:36 PM Note Text: CARDIOTHORACIC SURGERY POSTOP PROGRESS NOTE SERVICE DATE: 04/05/2018 SERVICE TIME: 11:28 AM Subjective S/P SURGERY: Procedure(s) (LRB): BYPASS GRAFT ARTERY CORONARY ON-PUMP USING VENOUS GRAFT(S) AND ARTERIAL GRAFT(S) THREE VENOUS GRAFTS (N/A) BYPASS GRAFT ARTERY CORONARY ON-PUMP SINGLE CORONARY ARTERIAL GRAFT (N/A) ENDOSCOPIC HARVEST VEIN FOR CORONARY ARTERY BYPASS PROCEDURE (N/A) DATE OF SURGERY: 03/28/2018 POSTOP DAY #8 LOS: 15 HPI: This is a 57 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 He noticed exertional chest pain about 2-3 weeks ago. Pain is precipitated and worsen with exertion. On Wednesday, he woke up in pain rated 4-7/10, pressure-like pain that wont resolved like before, so he brought himself to ED. He had initially negative troponin, his?EKG at the time showed: sinus tachycardia with no acute EKG changes. He was then?treated with ASA and nitro with improvement in symptoms but his troponin subsequent positive post medical therapy of ASA and Nitro, which peaked at 2.14. ?He underwent Heart cath and found 3 vessel disease then was loaded with Plavix and transferred to [facility] for CABG evaluation. ??Patient denied hx of CHF, Arrhythmia, CVA, COPD or leg edema. ? INTERVAL EVENTS / PERTINENT ROS: Patient seen this AM eating breakfast. Ready to go home. Will Put orders in for D/c Objective Admission Weight: 106.7 kg (235 lb 3.2 oz) BP 103/59 Pulse 69 Temp 36.2 ?C (97.2 ?F) Resp 18 Ht 172.7 cm (5' 8) Wt 111 kg (244 lb 11.4 oz) SpO2 93% BMI 37.21 kg/m? Body surface area is 2.31 meters squared. Min/Max/Average Temperature AND Blood Pressure: Temp (24hrs), Av.2 ?C (97.2 ?F), Min:36.1 ?C (97 ?F), Max:36.3 ?C (97.3 ?F) Systolic (24hrs), Av , Min:78 , Max:117 Diastolic (24hrs), Av, Min:48, Max:76 Intake/Output Summary (Last 24 hours) at 04/05/18 1128 Last data filed at 04/04/18 2130 Gross per 24 hour Intake 600 ml Output 1850 ml Net -1250 ml TELEMETRY: normal sinus rhythm PHYSICAL EXAM: General Appearance: Well developed and well nourished appearance. No acute distress. Midsternal AND SVG incision dry AND intact, without redness, drainage or edema. Lungs: clear and respiratory effort: normal Heart: regular rhythm and S1, S2 normal Abdomen: soft, non-tender and bowel sounds present Neurologic/Psychiatric: Oriented to person, place, time. Normal affect. No gross focal neurologic deficits. Extremities: edema: Trace Lines, Drains, and Airways Line Peripheral Assessment Short Left Forearm 20 Gauge -- days Peripheral 03/31/18 1119 Short Left Antecubital 20 Gauge 5 days DATA: Diagnostic tests reviewed for today's visit: none Recent Labs 04/04/18 0805 04/03/18 0700 RBC 2.57* -- WBC 7.52 -- HB 8.2* -- HCT 24.8* -- PLT 322 -- NA 136 -- K 4.0 -- CHLOR 101 -- CO2 26 -- BUN 21* -- CREAT 1.03 -- GLUC 85 -- CA 8.4* -- MG -- 2.2 ANION 13 -- Assessment/Plan NSTEMI with severe 3V CAD s/p CABG x3 -POD#7 -c/w ASA, statin, BB -Start Plavix today 75 mg QDAY -Encouraged post thorax vest -Pain control -IS/ ambulation ? Post op afib with RVR -Currently NSR. -Continue Metoprolol to 50mg TID, amiodarone 400 TID -Monitor lytes ? Anticipated acute hypoxic respiratory insufficiency -2/2 acute pulmonary edema/ atelectasis (+ 4Kg) -Continue lasix; Will supplement K+ to prevent arrhythmias -Incentive spirometer -Increase activity -Will send home on 20 lasix x 5 days and 20 K x 5 days ? Anticipation acute blood loss anemia -Hgb trending up (from yesterday's labs, no labs today) -No transfusion indicated ? DM -Insulin/metformin per Endocrinology -Plan to d/c on metformin, jardiance, and insulin ? TEOFILO -Continue CPAP QHS ? HTN -On BB -Resart low dose ACEi ? DVT PPX -SCD/ Loveneox Tests/Labs Ordered: 1. none SIGNATURE: Tamera Terrazas PA-C PATIENT NAME: Carlos Buckner DATE: April 05, 2018 TIME: 11:28 AM PAGER/CONTACT #:[phone] ETX [id number] CASE MANAGEM Observed: 04/04/2018 Status: COMPLETED Source: [facility] 4:45 PM [facility] OTHER CAMPUS REPOSITORY HNO ID: [id number] Author: Janna (Rn) KENYETTA Lind Service: Care Management Author Type: Registered Nurse Type: Care Mgt Progress Note Filed: 04/04/2018 4:47 PM Note Text: CARE MANAGEMENT PROGRESS NOTE SERVICE DATE: 04/04/2018 SERVICE TIME: 4:45 PM LOS: 14 days Needs Prior to Discharge: Home Care Order Stable heart rhythm over weekend. Plan is to enc amb and plan is for home with HHC when medically ready. SIGNATURE: Janna Lind RN PATIENT NAME: Carlos Buckner DATE: April 04, 2018 TIME: 4:45 PM PAGER/CONTACT #: [phone] NUTRITION Observed: 04/04/2018 Status: COMPLETED Source: [facility] 12:21 PM [facility] OTHER [place] REPOSITORY HNO ID: [id number] Author: Patt Seymour RD Service: Nutrition Therapy Author Type: Registered Dietitian Type: Nutrition Filed: 04/04/2018 12:24 PM Note Text: NUTRITION THERAPY PATIENT EDUCATION SERVICE DATE: 04/04/2018 SERVICE TIME: 12:21 PM TOPIC: Cardiac Rehab: Therapeutic Lifestyle Changes (TLC) Diagnosis: ADULT: Coronary Artery Disease and Diabetes Education READINESS TO LEARN Cognitive Ability: Alert and oriented Motivation to Learn: Interested Family Support: High - Very involved in pt care Instruction Provided to: Patient Patient Learns Best by: Multiple Methods Factors Affecting Learning: None Physical Limitations Affecting Learning: None LEARNING RESPONSE Patient / Family Response: Verbalizes understanding of Heart Healthy (CTS) Diet: Consuming 30% or less calories from fat, of which no more than 7% are saturated fat calories; no more than 200 mg cholesterol/day; and 2 grams of sodium Patient verbalized understanding of diabetes and carbohydrate counting Method of Instruction: Written instruction - handouts Verbal instruction Instructional Aids Used: Guide to Health and Recovery Binder Supplemental Material Provided to Patient: None Follow-Up Plan: Contact information given. Referral (Recommendation): Primary Care Provider MNT Billing: Initial Assess/15 min 2 units SIGNATURE: Patt Seymour RD, RONNY PATIENT NAME: Carlos Buckner DATE: April 04, 2018 TIME: 12:21 PM PAGER: [phone] PROGRESS Observed: 04/04/2018 Status: COMPLETED Source: [facility] 12:12 PM CLINIC OTHER CAMPUS REPOSITORY HNO ID: [id number] Author: Mike Rose Service: Cardiovascular Medicine Author Type: Physician Type: Progress Notes Filed: 04/04/2018 1:03 PM Note Text: CARDIOTHORACIC SURGERY POSTOP PROGRESS NOTE SERVICE DATE: 04/04/2018 SERVICE TIME: 12:12 PM Subjective S/P SURGERY: Procedure(s) (LRB): BYPASS GRAFT ARTERY CORONARY ON-PUMP USING VENOUS GRAFT(S) AND ARTERIAL GRAFT(S) THREE VENOUS GRAFTS (N/A) DATE OF SURGERY: 03/28/2018 POSTOP DAY #7 LOS: 14 INTERVAL EVENTS / PERTINENT ROS: Patient seen and examined. Pt maintained NSR throughout weekend. No acute events overnight. Objective Admission Weight: 106.7 kg (235 lb 3.2 oz) BP 101/62 Pulse 72 Temp 36 ?C (96.8 ?F) (Tympanic) Resp 20 Ht 172.7 cm (5' 8) Wt 112.5 kg (248 lb 2 oz) SpO2 98% BMI 37.73 kg/m? Body surface area is 2.32 meters squared. Min/Max/Average Temperature AND Blood Pressure: Temp (24hrs), Av.3 ?C (97.4 ?F), Min:36 ?C (96.8 ?F), Max:36.6 ?C (97.9 ?F) Systolic (24hrs), Av , Min:94 , Max:128 Diastolic (24hrs), Av, Min:53, Max:80 Intake/Output Summary (Last 24 hours) at 04/04/18 1212 Last data filed at 04/04/18 0200 Gross per 24 hour Intake 580 ml Output 1000 ml Net -420 ml TELEMETRY: normal sinus rhythm PHYSICAL EXAM: General Appearance: Patient in chair with vest off. NAD. NC on. Skin: Midsternal incision dry AND intact. and SVG incisions dry AND intact. Neck: RIJ site (now removed) healing well Lungs: Crackles at bases bilaterally Heart: regular rhythm Peripheral Vascular/Arteries: dorsalis pedis 2+ and radial 2+ Abdomen: soft, non-tender and bowel sounds present Neurologic/Psychiatric: alert and NFD Extremities: edema: 2+ Lines, Drains, and Airways Line Peripheral Assessment Short Left Forearm 20 Gauge -- days Peripheral 03/31/18 1119 Short Left Antecubital 20 Gauge 4 days DATA: Diagnostic tests reviewed for today's visit: Chest X-RAY: No significant change. There is atelectasis where CT was previously placed on left Recent Labs 04/04/18 0805 04/03/18 0700 04/02/18 0345 RBC 2.57* -- 2.43* WBC 7.52 -- 7.43 HB 8.2* -- 7.8* HCT 24.8* -- 22.7* PLT 322 -- 208 NA 136 -- 137 K 4.0 -- 3.5 CHLOR 101 -- 103 CO2 26 -- 24 BUN 21* -- 27* CREAT 1.03 -- 0.85 GLUC 85 -- 90 CA 8.4* -- 7.9* MG -- 2.2 2.3 ANION 13 -- 14 Assessment/Plan NSTEMI with severe 3V CAD s/p CABG x3 -POD#7 -c/w ASA, statin, BB -Start Plavix today 75 mg QDAY -Encouraged post thorax vest -Pain control -IS/ ambulation ? Post op afib with RVR -Currently NSR. -Continue Metoprolol to 50mg TID, amiodarone 400 TID -Monitor lytes ? Anticipated acute hypoxic respiratory insufficiency -2/2 acute pulmonary edema/ atelectasis (+ 7Kg) -Continue lasix; Will supplement K+ to prevent arrhythmias -Incentive spirometer -Increase activity ? Anticipation acute blood loss anemia -Hgb trending up -No transfusion indicated ? DM -Insulin/metformin per Endocrinology TEOFILO -Continue CPAP QHS HTN -On BB -Resart low dose ACEi DVT PPX -SCD/ Loveneox Case discussed with Dr. Rose and CVICU team SIGNATURE: Rubén Traore PA-C PATIENT NAME: Carlos Buckner DATE: April 04, 2018 TIME: 12:12 PM PAGER/CONTACT #: [phone] [phone] Patient seen with care team this AM. Labs, data, course, and careplan reviewed. P-add plavix, OK to 4200. PROGRESS Observed: 04/04/2018 Status: COMPLETED Source: [facility] 10:36 AM CLINIC OTHER CAMPUS REPOSITORY HNO ID: [id number] Author: Jeovany Ferguson Service: Critical Care Author Type: Physician Type: Progress Notes Filed: 04/04/2018 10:48 AM Note Text: MICU - PROGRESS NOTE SERVICE DATE: 04/04/2018 SERVICE TIME: 10:37 AM Admission Date: 03/21/2018 AGE: [age] year old LOS: 14 days Subjective REASON FOR ICU ADMISSION: Atelectasis, Atrial Fibrillation and Renal Failure Feeling a lot better except for chest tightness/soreness with movement. SaO2 99% on RA. Objective VITAL SIGNS (last 24hrs min/max): Temp Av.4 ?C (97.6 ?F) Min: 36.3 ?C (97.3 ?F) Max: 36.6 ?C (97.9 ?F) Pulse Av.3 Min: 65 Max: 90 No Data Recorded Cuff BP Min: 94/53 Max: 128/80 Pain Score: 5/10 Vital signs reviewed. BP 101/67 Pulse 70 Temp (Src) 97.3 (Temporal Artery) Resp 27 Ht 5' 8 (1.73m) Wt 248 lb 2 oz (112.5kg) SpO2 96% BMI 37.74 kg/(m2). Temp (24hrs), Av.4 ?C (97.6 ?F), Min:36.3 ?C (97.3 ?F), Max:36.6 ?C (97.9 ?F) NET FLUID BALANCE Intake/Output Summary (Last 24 hours) at 04/04/18 1037 Last data filed at 04/04/18 0200 Gross per 24 hour Intake 580 ml Output 2000 ml Net -1420 ml MEDICATIONS Current Facility-Administered Medications: insulin lispro 8 Units pen (rapid acting) (HumaLOG KWIKPEN) 8 Units SUBCUTANEOUS w MEALS metFORMIN 1,000 mg tab(s) (GLUCOPHAGE) 1,000 mg ORAL BID w MEALS amiodarone 360 mg in D5W 200 mL (NEXTERONE) 0.5 mg/min INTRAVENOUS CONTINUOUS amiodarone 400 mg tab(s) (PACERONE) 400 mg ORAL TID 0.9% NaCl 2-10 mL 2-10 mL INTRAVENOUS q 12 H aspirin 162 mg chewable tab(s) 162 mg ORAL DAILY atorvastatin 80 mg tab(s) (LIPITOR) 80 mg ORAL AT BEDTIME enoxaparin 40 mg injection (LOVENOX) 40 mg SUBCUTANEOUS q [address] 40 mg tab(s) (PROTONIX) 40 mg ORAL DAILY (6 AM) polyethylene glycol 3350 17 g packet (MIRALAX, GLYCOLAX) 17 g ORAL DAILY senna-docusate 8.6-50 mg 1 tablet (SENNA-S) 1 tablet ORAL BID acetaminophen 325-650 mg tab(s) (TYLENOL) 325-650 mg ORAL q 6 H PRN albuterol 2.5 mg /3 mL (0.083 %) 2.5 mg (PROVENTIL) 2.5 mg INHALATION q 2 H PRN melatonin 3 mg tab(s) 3 mg ORAL HS PRN morphine 2 mg injection 2 mg INTRAVENOUS q 2 H PRN ondansetron (PF) 4 mg injection (ZOFRAN) 4 mg INTRAVENOUS q 6 H PRN oxyCODONE IR 5-10 mg tab(s) (ROXICODONE) 5-10 mg ORAL q 3 H PRN pill splitter (patient-specific) 1 Each Miscell. (Med.Supl.;Non- Drugs) PRN potassium chloride ER 20 mEq tab(s) (K-DUR, KLOR-CON) 20 mEq ORAL TID bisacodyl 10 mg suppository (DULCOLAX) 10 mg RECTAL DAILY PRN metoprolol tartrate (short acting) 50 mg tab(s) (LOPRESSOR) 50 mg ORAL q 8 H dextrose 40 % 15 g 15 g ORAL PRN Or glucagon 1 mg injection (GLUCAGEN) 1 mg INTRAMUSCULAR PRN Or dextrose 50% in water 25 mL syringe 12.5 g INTRAVENOUS PRN insulin lispro pen (rapid acting) (HumaLOG KWIKPEN) SUBCUTANEOUS w MEALS Lines, Drains, and Airways Line Peripheral Assessment Short Left Forearm 20 Gauge -- days Peripheral 03/31/18 1119 Short Left Antecubital 20 Gauge 4 days PHYSICAL EXAM PERFORMED: HEENT: Grade IV airway. No thrush. Fair upper and lower dentition. Oral Mucosa: Moist mucous membranes Feeding Tube: No Eyes: PERRLA Neck: Unremarkable; No adenopathy or JVD Cardiovascular: Regular rhythm and NSR on monitor. Respiratory: Reduced breath sounds (L) and o/w clear No Data Recorded Abdomen: Soft, Nontender and Positive bowel sounds Extremities: Edema- No Peripheral Pulses- Present all extremities Capillary Refill- less than 3 seconds Skin: Abnormalities- No Neurologic: Awake, oriented, Alert, Follows commands and Moving all extremities Respiratory/Nursing Documentation: O2 Therapy: Nasal Cannula (04/04/18 0800) Invasive Ventilator Mode: Continuous Positive Airway Pressure;Pressure Support Ventilation (found on CPAP per RN, not notified.) (03/28/182350) Set Ventilator Respiratory Rate (BPM): 12 (03/28/182212) Total Respiratory Rate (BPM): 22 (03/28/182350) Tidal Volume Set (mL): 500 (03/28/182212) Exhaled Tidal Volume (mL): 502 (03/28/182350) Minute Volume (L): 10.8 (03/28/182350) Peak Inspiratory Pressure (cm H2O): 16 (03/28/182350) PEEP/CPAP (cm H2O): 5 (03/28/182350) HEMODYNAMIC DATA: NUTRITION: Enteral Feeds: Yes Cardiac diet DATA: Diagnostic tests reviewed for today's visit: Most recent labs and imaging results. LABS: Recent Labs 04/04/18 0805 04/03/18 0700 WBC 7.52 -- RBC 2.57* -- HB 8.2* -- HCT 24.8* -- MCV 96.5* -- PLT 322 -- GLUC 85 -- BUN 21* -- CREAT 1.03 -- NA 136 -- K 4.0 -- CHLOR 101 -- CO2 26 -- CA 8.4* -- MG -- 2.2 ABG: Invalid input(s): [id number] CULTURES: N/A CXR FINDINGS: FINDINGS: Overall, no significant interval change. ?Atelectasis or scarring along the periphery of the mid left lung at the site of previous thoracostomy tube. ?There is also a probable tiny left pleural effusion with atelectasis at the lower lobe. ?The right lung is clear. ? Stable cardiac enlargement. ?Intact sternotomy wires. ? No acute bony abnormality. ? IMPRESSION: No significant change. Assessment/Plan PROBLEMS: ACTIVE PROBLEM LIST Hyperlipemia Teofilo (Obstructive Sleep Apnea) Dm (Diabetes Mellitus), Type 2, Uncontrolled ([facility]) Erectile Dysfunction Associated With Type 2 Diabetes Mellitus ([facility]) Hypertriglyceridemia Htn (Hypertension) Chest Pain Cad (Coronary Artery Disease) Acs (Acute Coronary Syndrome) ([facility]) Nstemi (Non-St Elevated Myocardial Infarction) ([facility]) 1. Post-op CABG x 4 on 03/28--Day #7 2. Mild hypoxia with bibasilar atelectasis 3. Post-op AFib with RVR--resolved. 4. Type II DM 5. Known TEOFILO and on +7 or +8cm CPAP at which he has been wearing here. PLANS FOR TODAY: CRITICAL CARE PLAN: Ambulation and pulmonary clearance/incentive spirometer Home CPAP at HS and when asleep This patient has a high probability of sudden, clinically significant deterioration, which requires the highest level of physician preparedness to intervene urgently. I managed/supervised life or organ supporting interventions that required frequent physician assessment. I devoted my full attention to the direct care of this patient for the amount of time indicated below. Time I spent with family or surrogate(s) is included only if the patient was incapable of providing the necessary information or participating in medical decision making. Time devoted to teaching is not included. Patient Updated Yes Family Updated No Discussed with Staff Yes Time spent providing critical care services: 30 minutes excluding procedures. SIGNATURE: Jeovany Ferguson MD PATIENT NAME: Carlos Buckner DATE: April 04, 2018 TIME: 10:37 AM PAGER/CONTACT #: [phone] NUTRITION Observed: 04/04/2018 Status: COMPLETED Source: [facility] 9:39 AM [facility] OTHER CAMPUS REPOSITORY [facility] ID: [id number] Author: Patt Seymour RD Service: Nutrition Therapy Author Type: Registered Dietitian Type: Nutrition Filed: 04/04/2018 1:51 PM Note Text: NUTRITION THERAPY REASSESSMENT SERVICE DATE: 04/04/2018 SERVICE TIME: 9:39 AM RECOMMENDED MALNUTRITION DIAGNOSIS: MILD PROTEIN-CALORIE MALNUTRITION In the context of Acute Illness or Injury based on: Insufficient Energy Intake: Less than or equal to 50% for greater than or equal to 5 days NUTRITION CARE PLAN: Problem, Etiology and Signs/Symptoms: Suboptimal oral intake related to decreased appetite as evidenced by patient interview and clinical documentation of po Intervention: Continue diet as tolerated to goal Heart Healthy and carbohydrate controlled Discontinue Boost Glucose Control TID to provide 750 kcal and 42 gm protein Discontinue Ensure High Protein TID to provide 480 kcal and 48 gm protein Trial [employer] ANNABELLE TID to provide 600 kcal and 21 gm protein Coordination of Care: Nursing Monitor and Evaluation: Goal: Meet >75% of estimated needs Monitor fluid/electrolyte balance Monitor labs, I/Os, vital signs, weight Discharge Nutrition Recommendations: Diet: Heart Healthy and carbohydrate controlled Chart reviewed for reassessment Per HPI: 57 year old male who presented to [place] two days ago from 03/21?with chest pain, found to have NSTEMI. ?he had cardiac cath done with findings of three vessels disease and was transferred to [facility] for CTS evaluation for CABG. Upon admission?he was asymptomatic. ? 03/29/18: CTS surgery consulted. ?Endocrinology consulted for DM. ?Underwent CABG on 03/28. ?Extubated and remains NPO at present. ? ? 03/31/18: Patient with refusal to ambulate and stand due to pain on 03/29. Decreased po intake but tolerating Boost per RN. Weaning O2 on CPAP at night. Endocrinology managing glucose. Interval History: Transferred to 4200 on 04/01 and developed Afib with RVR and transferred back to [facility] [facility] for amiodarone. Plans to transfer back to 4200 today as bed available, maintained NSR throughout the weekend. Talked to patient in chair reports not sleeping well due to shoulder pin, tail bone pain, and incision. Encourage po and protein intake, has disliked all the supplements provided at present. ACTIVE PROBLEM LIST Hyperlipemia Teofilo (Obstructive Sleep Apnea) Dm (Diabetes Mellitus), Type 2, Uncontrolled (Hcc) Erectile Dysfunction Associated With Type 2 Diabetes Mellitus (Hcc) Hypertriglyceridemia Htn (Hypertension) Chest Pain Cad (Coronary Artery Disease) Acs (Acute Coronary Syndrome) (Hcc) Nstemi (Non-St Elevated Myocardial Infarction) (Hcc) PAST MEDICAL HISTORY Diagnosis Date - CAD (coronary artery disease) - HLD (hyperlipidemia) - HTN (hypertension) 06/10/2017 - Obstructive sleep apnea - Type II or unspecified type diabetes mellitus without mention of complication, not stated as uncontrolled PAST SURGICAL HISTORY Procedure Laterality Date - COLONOSCOP W/ OR W/O BRSH SPEC 01/17/15 Colonoscopy - KIDNEY SURGERY HX - LITHOTRIPSY PROC UNILATERAL 2007 left side done in [place] - PAST SURGICAL HISTORY OF dog bite age 5 - PAST SURGICAL HISTORY OF chainsaw injury Social History Marital status: Spouse name: ramana Years of education: Number of children: 2 Occupational History 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 13 and 15 in 2011 No TV in house Current Diet Order DIET HEART HEALTHY Order Specific Question: Heart Healthy Answer: 2 GM SODIUM (<200 MG CHOL / LOW SAT FAT) Order Specific Question: Carbohydrate Control Answer: 3-5 CARBS/MEAL Supplement 1 Frequency: 1. BREAKFAST; 5. DINNER; 7. BREAKFAST, LUNCH, DINNER Supplement 1: ENSURE HIGH PROTEIN CHOCOLATE Lines and Drains: Peripheral Assessment Short Left Forearm 20 Gauge (Active) Peripheral 03/31/18 1119 Short Left Antecubital 20 Gauge (Active) Nutritional Intake Prior to Admission: >75% estimated energy needs over the past >1 month(s), reports good po intake prior to admission ? 03/29/18: >75% estimated energy needs over the past 8 day(s), prior to OR intake 75-100% meals ? 03/31/18: <50% estimated energy need over the past 2 day(s) with decreased appetite and dislike of supplements. Agreeable to trial Ensure High protein (no vanilla). Nutritional Intake: <50% estimated energy needs over the past 4 day(s) with continued poor appetite, patient reports not sleeping well and skipping breakfast this am GI symptoms: decreased appetite Nutrition Abdominal Exam:, abdomen is soft and nondistended and bowel sounds are normal, per clinical documentation ANTHROPOMETRICS Height: 172.7 cm (5' 8) Admission Weight: 106.7 kg (235 lb 3.2 oz) Current Weight: 112.5 kg (248 lb 2 oz) Body mass index is 37.73 kg/m?. class 2 obesity Weight has unable to assess weight change due to fluid shifts Last Wt 04/04/18 : 112.5 kg (248 lb 2 oz) 03/29/18 : 108 kg (238 lb 1.6 oz) 06/10/17 : 110.2 kg (243 lb) - 9 months 01/20/17 : 108 kg (238 lb) - 14 months 03/20/16 : 110.7 kg (244 lb) 03/07/16 : 111.3 kg (245 lb 6.4 oz) 04/12/15 : 114.8 kg (253 lb) 03/12/15 : 113.4 kg (250 lb) 01/17/15 : 112.9 kg (248 lb 14.4 oz) 01/11/15 : 112.9 kg (249 lb) 01/11/15 : 112.5 kg (248 lb) 12/10/14 : 114.3 kg (252 lb) 09/08/14 : 109.8 kg (242 lb) 07/27/14 : 108.4 kg (239 lb) 07/06/14 : 108.4 kg (239 lb) 06/30/14 : 106.1 kg (234 lb) 11/30/13 : 112.5 kg (248 lb) 01/11/13 : 115.7 kg (255 lb) 01/03/13 : 114.4 kg (252 lb 1.9 oz) 08/23/12 : 111.2 kg (245 lb 1.9 oz) 08/03/12 : 109.8 kg (242 lb 1.9 oz) [place] Body Weight: 70kg Dosing Weight: 108 kg Resting Metabolic Rate: 1882 Estimated kilocalorie needs: 1979-4398 kilocalories determined by 25-30 kcal/kg Estimated protein needs: 105-140 grams determined by 1.5-2.0 g/kg [place] weight Estimated fluid needs: 5068-8380 milliliters based on 1 mL per kcal NUTRITION FOCUSED PHYSICAL EXAM: Subcutaneous Fat Loss Orbital No fat loss Triceps No fat loss Mid-axillary at the iliac crest Unable to determine at this time Muscle Loss Locations: Temporalis No muscle loss Pectoralis No muscle loss Deltoids No muscle loss Interosseous No muscle loss Latissimus dorsi, trapezius Unable to determine at this time Quadriceps Unable to determine at this time Gastrocnemius Unable to determine at this time Potential micronutrient deficiency revealed in: No deficiency identified Edema: Yes Lower extremities Mild 1+ Ascites: No Assessment of Functional Status: Functional capacity is unrelated to nutrition status Temperature Max in 24 hours: Temp (24hrs), Av.5 ?C (97.7 ?F), Min:36.4 ?C (97.5 ?F), Max:36.6 ?C (97.9 ?F) BP 123/71 Pulse 75 Temp 36.6 ?C (97.9 ?F) Resp 18 Ht 172.7 cm (5' 8) Wt 112.5 kg (248 lb 2 oz) SpO2 97% BMI 37.73 kg/m? Recent Labs 04/04/18 0805 04/03/18 0700 GLUC 85 -- BUN 21* -- CREAT 1.03 -- NA 136 -- K 4.0 -- CHLOR 101 -- CO2 26 -- HB 8.2* -- HCT 24.8* -- WBC 7.52 -- MG -- 2.2 Potential Signs of Inflammation: acute post-operative and chronic condition ALLERGIES Allergen Reactions - Oysters Rash, Itching - Shellfish Containin* Rash Current Facility-Administered Medications: insulin lispro 8 Units pen (rapid acting) (HumaLOG KWIKPEN) 8 Units SUBCUTANEOUS w MEALS metFORMIN 1,000 mg tab(s) (GLUCOPHAGE) 1,000 mg ORAL BID w MEALS amiodarone 360 mg in D5W 200 mL (NEXTERONE) 0.5 mg/min INTRAVENOUS CONTINUOUS amiodarone 400 mg tab(s) (PACERONE) 400 mg ORAL TID 0.9% NaCl 2-10 mL 2-10 mL INTRAVENOUS q 12 H aspirin 162 mg chewable tab(s) 162 mg ORAL DAILY atorvastatin 80 mg tab(s) (LIPITOR) 80 mg ORAL AT BEDTIME enoxaparin 40 mg injection (LOVENOX) 40 mg SUBCUTANEOUS q [address] 40 mg tab(s) (PROTONIX) 40 mg ORAL DAILY (6 AM) polyethylene glycol 3350 17 g packet (MIRALAX, GLYCOLAX) 17 g ORAL DAILY senna-docusate 8.6-50 mg 1 tablet (SENNA-S) 1 tablet ORAL BID acetaminophen 325-650 mg tab(s) (TYLENOL) 325-650 mg ORAL q 6 H PRN albuterol 2.5 mg /3 mL (0.083 %) 2.5 mg (PROVENTIL) 2.5 mg INHALATION q 2 H PRN melatonin 3 mg tab(s) 3 mg ORAL HS PRN morphine 2 mg injection 2 mg INTRAVENOUS q 2 H PRN ondansetron (PF) 4 mg injection (ZOFRAN) 4 mg INTRAVENOUS q 6 H PRN oxyCODONE IR 5-10 mg tab(s) (ROXICODONE) 5-10 mg ORAL q 3 H PRN pill splitter (patient-specific) 1 Each Miscell. (Med.Supl.;Non- Drugs) PRN potassium chloride ER 20 mEq tab(s) (K-DUR, KLOR-CON) 20 mEq ORAL TID bisacodyl 10 mg suppository (DULCOLAX) 10 mg RECTAL DAILY PRN metoprolol tartrate (short acting) 50 mg tab(s) (LOPRESSOR) 50 mg ORAL q 8 H dextrose 40 % 15 g 15 g ORAL PRN Or glucagon 1 mg injection (GLUCAGEN) 1 mg INTRAMUSCULAR PRN Or dextrose 50% in water 25 mL syringe 12.5 g INTRAVENOUS PRN insulin lispro pen (rapid acting) (HumaLOG KWIKPEN) SUBCUTANEOUS w MEALS Date 04/03/18699 - 04/04/18 0659 04/04/18 07 - 04/05/18 0659 Shift 2761-6722 2433-4627 7879-5118 24 Hour Total 1674-9650 3687-5203 5201-6351 24 Hour Total I N T A K E PO 360 220 580 PO 360 220 580 Shift Total 360 220 580 O U T P U T Urine 1700 500 418 1162 Void (ml) 1700 201 595 8529 # of BMs Number of BMs 1 x 1 x Shift Total 1700 009 662 6540 Weight (kg) 113.3 113.3 112.5 112.5 112.5 112.5 112.5 112.5 Surgical Incision 03/30/18 1900 Chest - Midsternal (Active) Dressing Status None: Open to Air 04/03/2018 8:00 PM Incision Closures Topical Skin Adhesive 04/03/2018 8:00 PM Drainage Description None 04/03/2018 8:00 PM Drainage Amount None 04/03/2018 8:00 PM Edges Intact 04/03/2018 8:00 PM Hematoma No 04/03/2018 8:00 PM Number of days: 4 Surgical Incision 03/30/18 Leg - Left (Active) Dressing Status None: Open to Air 04/03/2018 8:00 PM Incision Closures Topical Skin Adhesive 04/03/2018 8:00 PM Drainage Description None 04/03/2018 8:00 PM Drainage Amount None 04/03/2018 8:00 PM Edges Intact 04/03/2018 8:00 PM Hematoma No 04/03/2018 8:00 PM Number of days: 5 Vitamin and Mineral Labs in the past year:No results for input(s): CHROMIUM, COPPER, MANGANESE, SELENIUM, VITAMINA, VITB1, VITB2, VITB6, B12, METHYLMAL, VITD25, VITAMINE, VITAK, ZINC, TIBC, FE, PHONG in the last 8784 hours. MNT Billing Type: Initial Assess/15 min 4 units SIGNATURE: Patt Seymour RD, RONNY PATIENT NAME: Carlos Buckner DATE: April 04, 2018 TIME: 9:39 AM PAGER: [phone] CONSULT PROG Observed: 04/04/2018 Status: COMPLETED Source: [facility] 9:16 AM [facility] OTHER CAMPUS REPOSITORY O ID: [id number] Author: Ifeoma Cadena Service: Endocrinology Author Type: Physician Type: Consult Progress Note Filed: 04/04/2018 9:19 AM Note Text: ENDOCRINOLOGY CONSULT PROGRESS NOTE SERVICE DATE: 06/04/2017 SERVICE TIME: 9:16 AM Subjective INTERVAL HPI: pt seen for diabetes mellitus; was on Levemir 30 units qam and prandial humalog 10 units qac tid plus correction prior to surgery; iv insulin gtt stopped 03/31/18, now on levemir 30 units qam and humalog 12 units qac tid; eating better; no nausea; s/p CABG 03/28; poor po intake with breakfast today (had juice) DIET HEART HEALTHY Recent Labs 04/04/18 0805 04/04/18 0749 04/03/18 2037 04/03/18 1733 04/02/18 0345 GLUC 85 -- -- -- -- 90 GLUCOSEMETER -- 84 85 58* < > -- < > = values in this interval not displayed. Current hospital medications: [START ON 04/05/2018] insulin glargine 20 Units pen (long acting) (LANTUS SOLOSTAR, BASAGLAR KWIKPEN) 20 Units SUBCUTANEOUS DAILY (8 AM) insulin lispro 8 Units pen (rapid acting) (HumaLOG KWIKPEN) 8 Units SUBCUTANEOUS w MEALS metFORMIN 1,000 mg tab(s) (GLUCOPHAGE) 1,000 mg ORAL BID w MEALS amiodarone 360 mg in D5W 200 mL (NEXTERONE) 0.5 mg/min INTRAVENOUS CONTINUOUS amiodarone 400 mg tab(s) (PACERONE) 400 mg ORAL TID 0.9% NaCl 2-10 mL 2-10 mL INTRAVENOUS q 12 H aspirin 162 mg chewable tab(s) 162 mg ORAL DAILY atorvastatin 80 mg tab(s) (LIPITOR) 80 mg ORAL AT BEDTIME enoxaparin 40 mg injection (LOVENOX) 40 mg SUBCUTANEOUS q [address] 40 mg tab(s) (PROTONIX) 40 mg ORAL DAILY (6 AM) polyethylene glycol 3350 17 g packet (MIRALAX, GLYCOLAX) 17 g ORAL DAILY senna-docusate 8.6-50 mg 1 tablet (SENNA-S) 1 tablet ORAL BID acetaminophen 325-650 mg tab(s) (TYLENOL) 325-650 mg ORAL q 6 H PRN albuterol 2.5 mg /3 mL (0.083 %) 2.5 mg (PROVENTIL) 2.5 mg INHALATION q 2 H PRN melatonin 3 mg tab(s) 3 mg ORAL HS PRN morphine 2 mg injection 2 mg INTRAVENOUS q 2 H PRN ondansetron (PF) 4 mg injection (ZOFRAN) 4 mg INTRAVENOUS q 6 H PRN oxyCODONE IR 5-10 mg tab(s) (ROXICODONE) 5-10 mg ORAL q 3 H PRN pill splitter (patient-specific) 1 Each Miscell. (Med.Supl.;Non- Drugs) PRN potassium chloride ER 20 mEq tab(s) (K-DUR, KLOR-CON) 20 mEq ORAL TID bisacodyl 10 mg suppository (DULCOLAX) 10 mg RECTAL DAILY PRN metoprolol tartrate (short acting) 50 mg tab(s) (LOPRESSOR) 50 mg ORAL q 8 H dextrose 40 % 15 g 15 g ORAL PRN glucagon 1 mg injection (GLUCAGEN) 1 mg INTRAMUSCULAR PRN dextrose 50% in water 25 mL syringe 12.5 g INTRAVENOUS PRN insulin lispro pen (rapid acting) (HumaLOG KWIKPEN) SUBCUTANEOUS w MEALS Objective PHYSICAL EXAM: BP 123/71 Pulse 75 Temp (Src) 97.9 (Temporal Artery) Resp 18 Ht 5' 8 (1.73m) Wt 248 lb 2 oz (112.5kg) SpO2 97% BMI 37.74 kg/(m2). General: some distress , alert, well-hydrated, well nourished;Obese Skin: skin color, texture, turgor normal, no rashes or lesions. Head: normocephalic, no masses, lesions, tenderness or abnormalities. Eyes: SUSAN,EOMI Oropharynx: moist Neck: Supple, no adenopathy; thyroid symmetric, normal size, no bruits Chest: midsternal incision c/d/i Heart: RRR without murmur, gallop, or rubs. No ectopy Abdomen: soft, non-tender, positive bowel sounds Extremities: no edema, no calluses or ulcers present. Peripheral Pulses: posterior tibial and doralis pedis pulses 2+ and symmetrical ? DATA: Diagnostic tests reviewed for today's visit: Most recent labs and imaging results. Assessment/Plan DM (diabetes mellitus), type 2, uncontrolled; HbA1c 8.2; on oral antihyperglycemics (Metformin/Amaryl/Jardiance) at home; now with complications; ? CAD (coronary artery disease) severe. ?ACS (acute coronary syndrome) s/p revascularization on 03/28 ? Hyperlipemia POA: Yes Assessment AND Plan: per 1 service ? TEOFILO (obstructive sleep apnea) POA: Yes Assessment AND Plan: per 1 service. ? Recommendations: discontinued oral antihyperglycemics; now on prog insulin decrese levemir 20 units qam, Humalog 8 units qac plus correction; iv insulin gtt discontinued 03/31/18 use humalog for correction; avoid hypoglycmia; cont metformin SIGNATURE: Ifeoma Cadena MD PATIENT NAME: Carlos Buckner DATE: April 04, 2018 TIME: 9:18 AM PAGER: [phone] MDRD GFR Collected: 04/04/2018 Status: F Source: [facility] 8:[facility] REPOSITORY TYPE CODE TESTS RESULT OUT OF RANGE REFERENCE UNITS LAB GFRFN(LOINC >60mL/min/1.73m ) 2 eGFR >60 Result Comment: If the patient is , multiply the result by 1.210. Performed By: #### GFR #### [place] [id number] HEMOGRAM Collected: 04/04/2018 Status: F Source: [facility] 8:[facility] REPOSITORY TYPE CODE TESTS RESULT OUT OF REFERENCE UNITS RANGE LAB WBC(LOINC) 4.23-9.07 thou/cmm WBC 7.52 LAB RBC(LOINC) 4.63-6.08 mil/cmm Low RBC 2.57 LAB HGB(LOINC) 13.7-17.5 g/dL Low Hgb 8.2 LAB HCT(LOINC) 40.1-51.0 % Low Hct 24.8 LAB MCV(LOINC) 83.2-95.6 fl High MCV 96.5 LAB MCH(LOINC) 25.7-32.2 pg MCH 31.9 LAB MCHC(LOINC) 32.3-36.5 % MCHC 33.1 LAB RDW(LOINC) 11.6-14.4 % RDW 13.3 LAB RDWSD(LOINC 36.1-45.8 fl ) High RDW SD 46.7 LAB PLT(LOINC) 141-365 thou/cmm Platelet 322 LAB MPV(LOINC) 8.7-12.0 fl MPV 9.5 Performed By: #### CBC1 #### [place] [address] BASIC PANEL Collected: 04/04/2018 Status: F Source: [facility] 8:[address] [place] [address] SYSTEM REPOSITORY TYPE CODE TESTS RESULT OUT OF REFERENCE UNITS RANGE LAB NA(LOINC) 136-145 mEq/L Sodium Blood 136 LAB K(LOINC) 3.5-5.1 mEq/L Potassium Blood 4.0 LAB CL(LOINC) 98-107 mEq/L Chloride Blood 101 LAB CO2(LOINC) 21-32 mEq/L CO2 Blood 26 LAB GLU(LOINC) 70-99 mg/dL Glucose Blood 85 LAB BUN(LOINC) 7-18 mg/dL BUN High Blood 21 LAB CREA(LOINC 0.67-1.17 mg/dL ) Creatinine Blood 1.03 LAB CA(LOINC) 8.5-10.1 mg/dL Low Calcium Blood 8.4 LAB ANGAP(LOIN 8-16 C) Anion Gap 13 Performed By: #### P8 #### [facility] [address] [place] [id number] CHEST 1 VIEW Observed: 04/04/2018 Status: F Source: [facility] 6:29 AM HEALTH SYSTEM REPOSITORY Performed at [facility] APPROVED BY: Reji Sterling MD EXAM TITLE: CHEST 1 VIEW DATE: 04/04/2018 06:29 COMPARISON: Previous studies with the most recent performed one day ago CLINICAL INDICATION/HISTORY: Short of breath, history of prior CABG TECHNIQUE: AP upright portable chest FINDINGS: Overall, no significant interval change. Atelectasis or scarring along the periphery of the mid left lung at the site of previous thoracostomy tube. There is also a probable tiny left pleural effusion with atelectasis at the lower lobe. The right lung is clear. Stable cardiac enlargement. Intact sternotomy wires. No acute bony abnormality. IMPRESSION: No significant change. NURSING PROG Observed: 04/04/2018 Status: COMPLETED Source: [facility] 6:20 AM [facility] REPOSITORY HNO ID: [id number] Author: Frances (Rn) KENYETTA Powell Service: Nursing Author Type: Registered Nurse Type: Nursing Progress Note Filed: 04/04/2018 6:50 AM Note Text: Unable to obtain lab work for pt as ordered. Pt is difficult venous access. 2 rn attempt without success. Special ops paged. Page unit back but did not say if was able to make it before shift end. PROGRESS Observed: 04/03/2018 Status: COMPLETED Source: [facility] 3:44 PM [facility] REPOSITORY HNO ID: [id number] Author: Eliazar Davey Service: Cardiac Surgery Author Type: Physician Type: Progress Notes Filed: 04/03/2018 3:47 PM Note Text: CARDIOTHORACIC SURGERY POSTOP PROGRESS NOTE SERVICE DATE: 04/03/2018 SERVICE TIME: 3:44 PM Subjective S/P SURGERY: Procedure(s) (LRB): BYPASS GRAFT ARTERY CORONARY ON-PUMP USING VENOUS GRAFT(S) AND ARTERIAL GRAFT(S) THREE VENOUS GRAFTS (N/A) DATE OF SURGERY: 03/28/2018 POSTOP DAY #6 LOS: 13 INTERVAL EVENTS / PERTINENT ROS: Did well overnight. Less pain. Wants to walk halls. Breathing better. No AF. Objective Admission Weight: 106.7 kg (235 lb 3.2 oz) BP 98/67 Pulse 87 Temp 36 ?C (96.8 ?F) (Temporal Artery) Resp 22 Ht 172.7 cm (5' 8) Wt 113.3 kg (249 lb 12.8 oz) SpO2 97% BMI 37.98 kg/m? Body surface area is 2.33 meters squared. Min/Max/Average Temperature AND Blood Pressure: Temp (24hrs), Av.3 ?C (97.4 ?F), Min:36 ?C (96.8 ?F), Max:36.6 ?C (97.9 ?F) Systolic (24hrs), Av , Min:61 , Max:128 Diastolic (24hrs), Av, Min:46, Max:104 Intake/Output Summary (Last 24 hours) at 04/03/18 1544 Last data filed at 04/03/18 1200 Gross per 24 hour Intake 0 ml Output 2350 ml Net -2350 ml TELEMETRY: normal sinus rhythm PHYSICAL EXAM: On examination, the patient is awake, alert, and is breathing comfortably. Vital signs are: BP 137/77 Pulse 65 Temp 36.7 ?C (98.1 ?F) Resp 20 Ht 180.3 cm (5' 11) Wt 86.4 kg (190 lb 7.6 oz) SpO2 99% BMI 26.57 kg/m2. There is no JVD. Breath sounds are clear bilaterally. The sternal wound is intact and the sternum is stable. The cardiac rhythm is regular. There are no rubs, gallops, or murmurs. The carotid, subclavian, and radial pulses are 2+ and equal bilaterally. The abdomen is soft and non-tender. There are no abdominal masses. There is no hepatojugular reflux. The saphenous vein harvest sites are intact. There is no pretibial edema. There is no clubbing or cyanosis. The neuro exam is grossly non focal. Chest tube output is serosanguinous. Lines, Drains, and Airways Line Peripheral Assessment Short Left Forearm 20 Gauge -- days Peripheral 03/31/18 1119 Short Left Antecubital 20 Gauge 3 days DATA: Diagnostic tests reviewed for today's visit: see below Recent Labs 04/03/18 0700 04/02/18 0345 04/01/18 0159 RBC -- 2.43* 2.64* WBC -- 7.43 10.84* HB -- 7.8* 8.3* HCT -- 22.7* 24.0* PLT -- 208 170 NA -- 137 137 K -- 3.5 3.2* CHLOR -- 103 103 CO2 -- 24 25 BUN -- 27* 26* CREAT -- 0.85 0.92 GLUC -- 90 78 CA -- 7.9* 8.3* MG 2.2 2.3 2.1 ANION -- 14 12 Recent Labs 04/01/18 0314 PH 7.476* PCO2 33.1* PO2 57.1* BE 0.5 Assessment/Plan NSTEMI with severe 3V CAD s/p CABG x3 -POD#6 -c/w ASA, statin, BB -If pt remains in NSR and does not require anticoagulation, will consider dual-antiplatelet therapy for ACS. -Post thorax vest -Pain control -Strongly encourage IS AND ambulation -c/w bowel regimen. If no BM by POD#5, give suppository ? Post op afib with RVR -remains in NSR. -metoprolol to 50mg TID. -[id number]; Consider anticoagulation if he goes back into afib again. ? Anticipated acute hypoxic respiratory insufficiency -2/2 pulmonary edema/ atelectasis -Diuresed with IV lasix -Encouraged CANDDB, incentive spirometer -Increase activity ? ? Anticipation acute blood loss anemia -Asymptomatic, but Hgb trending down. Will follow -No transfusion indicated ? Thrombocytopenia -Reactive; resolved. ? DVT ppx Tests/Labs Ordered: 1. CBC SIGNATURE: Eliaazr Davey MD PATIENT NAME: Carlos Buckner DATE: April 03, 2018 TIME: 3:44 PM PAGER/CONTACT #: [phone] CONSULT PROG Observed: 04/03/2018 Status: COMPLETED Source: [facility] 11:20 AM CLIN[facility] OTHER CAMPUS REPOSITORY O ID: [id number] Author: Ifeoma Cadena Service: Endocrinology Author Type: Physician Type: Consult Progress Note Filed: 04/03/2018 10:50 PM Note Text: ENDOCRINOLOGY CONSULT PROGRESS NOTE SERVICE DATE: 06/03/2017 SERVICE TIME: 11:20 AM Subjective INTERVAL HPI: pt seen for diabetes mellitus;was on Levemir 30 units qam and prandial humalog 10 units qac tid plus correction prior to surgery; iv insulin gtt stopped 03/31/18, now on levemir 30 units bid and humalog 20 units qac tid; eating better; no nausea; s/p CABG 03/28 DIET HEART HEALTHY Recent Labs 04/03/18 2037 04/03/18 1733 04/03/18 1211 04/02/18 0345 04/01/18 0159 GLUC -- -- -- -- 90 -- 78 GLUCOSEMETER 85 58* 149* < > -- < > -- < > = values in this interval not displayed. Current hospital medications: [START ON 04/04/2018] insulin glargine 30 Units pen (long acting) (LANTUS SOLOSTAR, BASAGLAR KWIKPEN) 30 Units SUBCUTANEOUS DAILY (8 AM) [START ON 04/04/2018] insulin lispro 12 Units pen (rapid acting) (HumaLOG KWIKPEN) 12 Units SUBCUTANEOUS w MEALS metFORMIN 1,000 mg tab(s) (GLUCOPHAGE) 1,000 mg ORAL BID w MEALS amiodarone 360 mg in D5W 200 mL (NEXTERONE) 0.5 mg/min INTRAVENOUS CONTINUOUS amiodarone 400 mg tab(s) (PACERONE) 400 mg ORAL TID 0.9% NaCl 2-10 mL 2-10 mL INTRAVENOUS q 12 H aspirin 162 mg chewable tab(s) 162 mg ORAL DAILY atorvastatin 80 mg tab(s) (LIPITOR) 80 mg ORAL AT BEDTIME enoxaparin 40 mg injection (LOVENOX) 40 mg SUBCUTANEOUS q [address] 40 mg tab(s) (PROTONIX) 40 mg ORAL DAILY (6 AM) polyethylene glycol 3350 17 g packet (MIRALAX, GLYCOLAX) 17 g ORAL DAILY senna-docusate 8.6-50 mg 1 tablet (SENNA-S) 1 tablet ORAL BID acetaminophen 325-650 mg tab(s) (TYLENOL) 325-650 mg ORAL q 6 H PRN albuterol 2.5 mg /3 mL (0.083 %) 2.5 mg (PROVENTIL) 2.5 mg INHALATION q 2 H PRN melatonin 3 mg tab(s) 3 mg ORAL HS PRN morphine 2 mg injection 2 mg INTRAVENOUS q 2 H PRN ondansetron (PF) 4 mg injection (ZOFRAN) 4 mg INTRAVENOUS q 6 H PRN oxyCODONE IR 5-10 mg tab(s) (ROXICODONE) 5-10 mg ORAL q 3 H PRN pill splitter (patient-specific) 1 Each Miscell. (Med.Supl.;Non- Drugs) PRN potassium chloride ER 20 mEq tab(s) (K-DUR, KLOR-CON) 20 mEq ORAL TID bisacodyl 10 mg suppository (DULCOLAX) 10 mg RECTAL DAILY PRN metoprolol tartrate (short acting) 50 mg tab(s) (LOPRESSOR) 50 mg ORAL q 8 H dextrose 40 % 15 g 15 g ORAL PRN glucagon 1 mg injection (GLUCAGEN) 1 mg INTRAMUSCULAR PRN dextrose 50% in water 25 mL syringe 12.5 g INTRAVENOUS PRN insulin lispro pen (rapid acting) (HumaLOG KWIKPEN) SUBCUTANEOUS w MEALS Objective PHYSICAL EXAM: BP 121/68 Pulse 77 Temp (Src) 96.8 (Temporal Artery) Resp 21 Ht 5' 8 (1.73m) Wt 249 lb 12.8 oz (113.3kg) SpO2 93% BMI 37.99 kg/(m2). General: some distress , alert, well-hydrated, well nourished;Obese Skin: skin color, texture, turgor normal, no rashes or lesions. Head: normocephalic, no masses, lesions, tenderness or abnormalities. Eyes: SUSAN,EOMI Oropharynx: moist Neck: Supple, no adenopathy; thyroid symmetric, normal size, no bruits Chest: midsternal incision c/d/i Heart: RRR without murmur, gallop, or rubs. No ectopy Abdomen: soft, non-tender, positive bowel sounds Extremities: no edema, no calluses or ulcers present. Peripheral Pulses: posterior tibial and doralis pedis pulses 2+ and symmetrical ? DATA: Diagnostic tests reviewed for today's visit: Most recent labs and imaging results. Assessment/Plan DM (diabetes mellitus), type 2, uncontrolled; HbA1c 8.2; on oral antihyperglycemics (Metformin/Amaryl/Jardiance) at home; now with complications; ? CAD (coronary artery disease) severe. ?ACS (acute coronary syndrome) s/p revascularization on 03/28 ? Hyperlipemia POA: Yes Assessment AND Plan: per 1 service ? TEOFILO (obstructive sleep apnea) POA: Yes Assessment AND Plan: per 1 service. ? Recommendations: discontinued oral antihyperglycemics; now on prog insulin levemir 30,0,0,30 units qhs, Humalog 20 units qac plus correction; iv insulin gtt discontinued 03/31/18; decrease levemir to 30 units qam and humalog 12 units qac tid plus correction to avoid hypoglycmia; cont metformin SIGNATURE: Ifeoma Cadena MD PATIENT NAME: Carlos Buckner DATE: April 03, 2018 TIME: 3:16 PM PAGER: [phone] CHEST 1 VIEW Observed: 04/03/2018 Status: F Source: [facility] 8:59 AM HEALTH SYSTEM REPOSITORY Performed at [facility] APPROVED BY: Bertin Crum MD EXAMINATION: CHEST RADIOGRAPH (SINGLE VIEW AP OR PA) Clinical History: The patient is a 57-year-old male with persistent respiratory distress. The patient is had recent bypass grafting. M: [id number]_4 Comparison: Chest radiographs from the past 4 days. RESULT: Lines, tubes, and devices: Sternal wires and mediastinal clips are stable and unchanged. EKG leads overlie the chest. Lungs and pleura: There is persistent left pleural thickening peripherally near the course of the previous large bore chest tube. There is some residual medial left basilar infiltrate but overall appe arance of the left lung is stable and unchanged from yesterday's exam. The right lung is normal. Both costophrenic angles are sharp. Cardiomediastinal silhouette: Normal cardiomediastinal silhouette. Other: No other significant abnormality is appreciated. IMPRESSION: Stable appearance to the chest with some persistent residual left pleural disease and medial left basilar infiltrate. No new active disease involves the rest of the chest. PROGRESS Observed: 04/03/2018 Status: COMPLETED Source: [facility] 8:44 AM CLINIC OTHER CAMPUS REPOSITORY HNO ID: [id number] Author: Martha Chester Service: Critical Care Author Type: Physician Type: Progress Notes Filed: 04/03/2018 12:45 PM Note Text: MICU - PROGRESS NOTE SERVICE DATE: 04/03/2018 Admission Date: 03/21/2018 AGE: [age] year old LOS: 13 days REASON FOR ICU ADMISSION: s/p CABG, anticipated post-op respiratory insufficiency Subjective HPI/Interval history: Diuresed yesterday Off amiodarone gtt Continues to feel better Did not wear CPAP O/N PAST MEDICAL HISTORY Diagnosis Date - CAD (coronary artery disease) - HLD (hyperlipidemia) - HTN (hypertension) 06/10/2017 - Obstructive sleep apnea - Type II or unspecified type diabetes mellitus without mention of complication, not stated as uncontrolled Objective VITAL SIGNS (last 24hrs min/max): Temp Av.6 ?C (99.7 ?F) Min: 36.2 ?C (97.2 ?F) Max: 38.5 ?C (101.3 ?F) Pulse Av Min: 77 Max: 117 Arterial BP 1 Min: 84/57 Max: 152/82 Cuff BP Min: 92/62 Max: 117/64 Pain Score: 10/10 Vital signs reviewed. BP 107/60 Pulse 75 Temp (Src) 96.8 (Temporal Artery) Resp 24 Ht 5' 8 (1.73m) Wt 249 lb 12.8 oz (113.3kg) SpO2 98% BMI 37.99 kg/(m2). Temp (24hrs), Av.3 ?C (97.3 ?F), Min:36 ?C (96.8 ?F), Max:36.6 ?C (97.9 ?F) NET FLUID BALANCE Intake/Output Summary (Last 24 hours) at 04/03/18 0844 Last data filed at 04/03/18 0700 Gross per 24 hour Intake 240 ml Output 2150 ml Net -1910 ml MEDICATIONS Current Facility-Administered Medications: insulin glargine 30 Units pen (long acting) (LANTUS SOLOSTAR, BASAGLAR KWIKPEN) 30 Units SUBCUTANEOUS BID insulin lispro 20 Units pen (rapid acting) (HumaLOG KWIKPEN) 20 Units SUBCUTANEOUS w MEALS metFORMIN 1,000 mg tab(s) (GLUCOPHAGE) 1,000 mg ORAL BID w MEALS amiodarone 360 mg in D5W 200 mL (NEXTERONE) 0.5 mg/min INTRAVENOUS CONTINUOUS amiodarone 400 mg tab(s) (PACERONE) 400 mg ORAL TID 0.9% NaCl 2-10 mL 2-10 mL INTRAVENOUS q 12 H aspirin 162 mg chewable tab(s) 162 mg ORAL DAILY atorvastatin 80 mg tab(s) (LIPITOR) 80 mg ORAL AT BEDTIME enoxaparin 40 mg injection (LOVENOX) 40 mg SUBCUTANEOUS q [address] 40 mg tab(s) (PROTONIX) 40 mg ORAL DAILY (6 AM) polyethylene glycol 3350 17 g packet (MIRALAX, GLYCOLAX) 17 g ORAL DAILY senna-docusate 8.6-50 mg 1 tablet (SENNA-S) 1 tablet ORAL BID acetaminophen 325-650 mg tab(s) (TYLENOL) 325-650 mg ORAL q 6 H PRN albuterol 2.5 mg /3 mL (0.083 %) 2.5 mg (PROVENTIL) 2.5 mg INHALATION q 2 H PRN melatonin 3 mg tab(s) 3 mg ORAL HS PRN morphine 2 mg injection 2 mg INTRAVENOUS q 2 H PRN ondansetron (PF) 4 mg injection (ZOFRAN) 4 mg INTRAVENOUS q 6 H PRN oxyCODONE IR 5-10 mg tab(s) (ROXICODONE) 5-10 mg ORAL q 3 H PRN pill splitter (patient-specific) 1 Each Miscell. (Med.Supl.;Non- Drugs) PRN potassium chloride ER 20 mEq tab(s) (K-DUR, KLOR-CON) 20 mEq ORAL TID bisacodyl 10 mg suppository (DULCOLAX) 10 mg RECTAL DAILY PRN metoprolol tartrate (short acting) 50 mg tab(s) (LOPRESSOR) 50 mg ORAL q 8 H dextrose 40 % 15 g 15 g ORAL PRN Or glucagon 1 mg injection (GLUCAGEN) 1 mg INTRAMUSCULAR PRN Or dextrose 50% in water 25 mL syringe 12.5 g INTRAVENOUS PRN insulin lispro pen (rapid acting) (HumaLOG KWIKPEN) SUBCUTANEOUS w MEALS Respiratory/Nursing Documentation: O2 Therapy: Nasal Cannula (04/03/18 0353) Invasive Ventilator Mode: Continuous Positive Airway Pressure;Pressure Support Ventilation (found on CPAP per RN, not notified.) (03/28/182350) Set Ventilator Respiratory Rate (BPM): 12 (03/28/182212) Total Respiratory Rate (BPM): 22 (03/28/182350) Tidal Volume Set (mL): 500 (03/28/182212) Exhaled Tidal Volume (mL): 502 (03/28/182350) Minute Volume (L): 10.8 (03/28/182350) Peak Inspiratory Pressure (cm H2O): 16 (03/28/182350) PEEP/CPAP (cm H2O): 5 (03/28/182350) Lines, Drains, and Airways Line Peripheral Assessment Short Left Forearm 20 Gauge -- days Peripheral 03/31/18 1119 Short Left Antecubital 20 Gauge 2 days PHYSICAL EXAMINATION: Vitals-reviewed and noted above. Lines/Drains in place as noted above. On 3L nc Obese, following commands Thick neck Median sternotomy Mild crackles at bases, diminished on L RRR Ab distended mildly but BS+, NT No edema No acute rash DATA: All data reviewed, including, but not limited to, data noted below. All diagnostic tests, including labs/specimens and imaging, were personally reviewed by me. MICRO: CXR FINDINGS: 04/03: Stable appearance to the chest with some persistent residual left pleural disease and medial left basilar infiltrate. ? No new active disease involves the rest of the chest. 04/02: Overall, no significant interval change. ?Status post median sternotomy. ?Probable ?small left pleural effusion along with volume loss and atelectasis. ?Focal rounded opacity along the periphery of the mid left lung is unchanged. ?Right lung ?grossly appears clear. ?Stable cardiac enlargement. ? 03/31: Recent removal of left thoracostomy tube. ?There is now a tiny left apical pneumothorax. 03/29 : Portable frontal view of the chest shows endotracheal tube and enteric tube have been removed. ? Right internal jugular Stark-Nohelia catheter with tip in the pulmonary outflow tract. ? Mediastinal drain overlying the inferior aspect mediastinum. ? Left-sided chest tube overlying left mid chest. ? Cardiac silhouette remains mildly enlarged. ? Widening of the superior mediastinum. ?Stable. ? Lungs are remarkable for probable atelectasis at the left lung base. ? IMPRESSION: ? Status post extubation. OTHER DIAGNOSTICS/ IMAGING: Impression/Recommendations Critical Care Documentation: The patient has the following organ/system impairment(s): 57 yo WM w/ the following: # CAD w/ NSTEMI I s/p CABG x 4v 03/28/18 # Acute post-op respiratory insufficiency; s/p extubated as expected on 03/28/18 # New post-op Afib w/ RVR- now back on NSR # Suspect atelectasis in s/o splinting d/t pain # L pleural effusion vs atelectasis # Anticipated post-op hypotension- resolved # Post-op anemia # Leukocytosis- post-op- downtrending # TEOFILO on home CPAP PLAN: - Wean FiO2 to >90% - Agree w/ additional diuresis- received 20mg IV today - Cont CPAP w/ naps and qhs at 8cm H20- can use hospital machine per pt's preference - Pain control w/ oxycodone IR q3 hr prn and continue w/ acetaminophen prn - Encourage IS/OOB - Cardiology following: ASA, statin, BB - Amiodarone management per cards - BG management per endocrine Prognosis: Progressing favorably Code Status: Full Patient/Family Updated: Patient was updated regarding?the?goals of care,?medical plan for the day, it consultant recommendations, medical disposition and current medical condition/prognosis as clinically indicated. All questions and concerns, if any, were answered and addressed at this juncture. Discussed with staff. SIGNATURE: Martha Chester MD [facility] Department of Pulmonary and Critical Care Medicine DATE of SERVICE: April 03, 2018 TIME of SERVICE: 12:45 PM MAGNESIUM BLOOD Collected: 04/03/2018 Status: F Source: [facility] 7:00 AM HEALTH SYSTEM REPOSITORY TYPE CODE TESTS RESULT OUT OF REFERENCE UNITS RANGE LAB MAG(LOINC) 1.6-2.6 mg/dL Magnesium Blood 2.2 Performed By: #### MAG #### [facility] [address] [id number] CONSULT PROG Observed: 04/02/2018 Status: COMPLETED Source: [facility] 11:40 AM CLINIC OTHER CAMPUS REPOSITORY O ID: [id number] Author: Ifeoma Cadena Service: Endocrinology Author Type: Physician Type: Consult Progress Note Filed: 04/02/2018 3:16 PM Note Text: ENDOCRINOLOGY CONSULT PROGRESS NOTE SERVICE DATE: 06/02/2017 SERVICE TIME: 11:41 AM Subjective INTERVAL HPI: pt seen for diabetes mellitus;was on Levemir 30 units qam and prandial humalog 10 units qac tid plus correction prior to surgery; iv insulin gtt stopped 03/31/18, now on levemir 40 units bid and humalog 24 units qac tid; eating better; no nausea; s/p CABG 03/28 DIET HEART HEALTHY Recent Labs 04/02/18 1146 04/02/18 0755 04/02/18 0345 04/01/18 2108 04/01/18 0159 03/31/18 0427 GLUC -- -- 90 -- -- 78 -- 96 GLUCOSEMETER 134* 88 -- 146* < > -- < > -- < > = values in this interval not displayed. Current hospital medications: insulin glargine 30 Units pen (long acting) (LANTUS SOLOSTAR, BASAGLAR KWIKPEN) 30 Units SUBCUTANEOUS BID insulin lispro 20 Units pen (rapid acting) (HumaLOG KWIKPEN) 20 Units SUBCUTANEOUS w MEALS furosemide 40 mg tab(s) (LASIX) 40 mg ORAL ONCE amiodarone 360 mg in D5W 200 mL (NEXTERONE) 0.5 mg/min INTRAVENOUS CONTINUOUS amiodarone 400 mg tab(s) (PACERONE) 400 mg ORAL TID 0.9% NaCl 2-10 mL 2-10 mL INTRAVENOUS q 12 H aspirin 162 mg chewable tab(s) 162 mg ORAL DAILY atorvastatin 80 mg tab(s) (LIPITOR) 80 mg ORAL AT BEDTIME enoxaparin 40 mg injection (LOVENOX) 40 mg SUBCUTANEOUS q [address] 40 mg tab(s) (PROTONIX) 40 mg ORAL DAILY (6 AM) polyethylene glycol 3350 17 g packet (MIRALAX, GLYCOLAX) 17 g ORAL DAILY senna-docusate 8.6-50 mg 1 tablet (SENNA-S) 1 tablet ORAL BID acetaminophen 325-650 mg tab(s) (TYLENOL) 325-650 mg ORAL q 6 H PRN albuterol 2.5 mg /3 mL (0.083 %) 2.5 mg (PROVENTIL) 2.5 mg INHALATION q 2 H PRN melatonin 3 mg tab(s) 3 mg ORAL HS PRN morphine 2 mg injection 2 mg INTRAVENOUS q 2 H PRN ondansetron (PF) 4 mg injection (ZOFRAN) 4 mg INTRAVENOUS q 6 H PRN oxyCODONE IR 5-10 mg tab(s) (ROXICODONE) 5-10 mg ORAL q 3 H PRN pill splitter (patient-specific) 1 Each Miscell. (Med.Supl.;Non- Drugs) PRN potassium chloride ER 20 mEq tab(s) (K-DUR, KLOR-CON) 20 mEq ORAL TID bisacodyl 10 mg suppository (DULCOLAX) 10 mg RECTAL DAILY PRN metoprolol tartrate (short acting) 50 mg tab(s) (LOPRESSOR) 50 mg ORAL q 8 H dextrose 40 % 15 g 15 g ORAL PRN glucagon 1 mg injection (GLUCAGEN) 1 mg INTRAMUSCULAR PRN dextrose 50% in water 25 mL syringe 12.5 g INTRAVENOUS PRN insulin lispro pen (rapid acting) (HumaLOG KWIKPEN) SUBCUTANEOUS w MEALS Objective PHYSICAL EXAM: BP 117/68 Pulse 79 Temp (Src) 97.3 (Temporal Artery) Resp 23 Ht 5' 8 (1.73m) Wt 256 lb 6.3 oz (116.3kg) SpO2 100% BMI 38.99 kg/(m2). General: some distress , alert, well-hydrated, well nourished;Obese Skin: skin color, texture, turgor normal, no rashes or lesions. Head: normocephalic, no masses, lesions, tenderness or abnormalities. Eyes: SUSAN,EOMI Oropharynx: moist Neck: Supple, no adenopathy; thyroid symmetric, normal size, no bruits Chest: midsternal incision c/d/i Heart: RRR without murmur, gallop, or rubs. No ectopy Abdomen: soft, non-tender, positive bowel sounds Extremities: no edema, no calluses or ulcers present. Peripheral Pulses: posterior tibial and doralis pedis pulses 2+ and symmetrical ? DATA: Diagnostic tests reviewed for today's visit: Most recent labs and imaging results. Assessment/Plan DM (diabetes mellitus), type 2, uncontrolled; HbA1c 8.2; on oral antihyperglycemics (Metformin/Amaryl/Jardiance) at home; now with complications; ? CAD (coronary artery disease) severe. ?ACS (acute coronary syndrome) s/p revascularization on 03/28 ? Hyperlipemia POA: Yes Assessment AND Plan: per 1 service ? TEOFILO (obstructive sleep apnea) POA: Yes Assessment AND Plan: per 1 service. ? Recommendations: discontinued oral antihyperglycemics; now on prog insulin levemir 40,0,0,40 units qhs, Humalog 24 units qac plus correction; iv insulin gtt discontinued 03/31/18; decrease levemir to 30 units bid and humalog 20 units qac tid plus correction to avoid hypoglycmia; resume metformin SIGNATURE: Ifeoma Cadena MD PATIENT NAME: Carlos Buckner DATE: April 02, 2018 TIME: 3:16 PM PAGER: [phone] PROGRESS Observed: 04/02/2018 Status: COMPLETED Source: [facility] 11:00 AM CLINIC OTHER CAMPUS REPOSITORY O ID: [id number] Author: Martha Chester Service: Critical Care Author Type: Physician Type: Progress Notes Filed: 04/02/2018 2:36 PM Note Text: MICU - PROGRESS NOTE SERVICE DATE: 04/02/2018 Admission Date: 03/21/2018 AGE: [age] year old LOS: 12 days REASON FOR ICU ADMISSION: s/p CABG, anticipated post-op respiratory insufficiency Subjective HPI/Interval history: Now back in NSR Feels sig better, better spirits OOB to chair Doesn't feel home CPAP at adequate pressures, did not wear at night. PAST MEDICAL HISTORY Diagnosis Date - CAD (coronary artery disease) - HLD (hyperlipidemia) - HTN (hypertension) 06/10/2017 - Obstructive sleep apnea - Type II or unspecified type diabetes mellitus without mention of complication, not stated as uncontrolled Objective VITAL SIGNS (last 24hrs min/max): Temp Av.6 ?C (99.7 ?F) Min: 36.2 ?C (97.2 ?F) Max: 38.5 ?C (101.3 ?F) Pulse Av Min: 77 Max: 117 Arterial BP 1 Min: 84/57 Max: 152/82 Cuff BP Min: 92/62 Max: 117/64 Pain Score: 10/10 Vital signs reviewed. BP 117/68 Pulse 79 Temp (Src) 97.3 (Temporal Artery) Resp 23 Ht 5' 8 (1.73m) Wt 256 lb 6.3 oz (116.3kg) SpO2 100% BMI 38.99 kg/(m2). Temp (24hrs), Av.8 ?C (98.3 ?F), Min:36.3 ?C (97.3 ?F), Max:37.1 ?C (98.8 ?F) NET FLUID BALANCE Intake/Output Summary (Last 24 hours) at 04/02/18 1430 Last data filed at 04/02/18 1200 Gross per 24 hour Intake 1351 ml Output 1300 ml Net 51 ml MEDICATIONS Current Facility-Administered Medications: insulin lispro 20 Units pen (rapid acting) (HumaLOG KWIKPEN) 20 Units SUBCUTANEOUS w MEALS amiodarone 360 mg in D5W 200 mL (NEXTERONE) 0.5 mg/min INTRAVENOUS CONTINUOUS amiodarone 400 mg tab(s) (PACERONE) 400 mg ORAL TID 0.9% NaCl 2-10 mL 2-10 mL INTRAVENOUS q 12 H aspirin 162 mg chewable tab(s) 162 mg ORAL DAILY atorvastatin 80 mg tab(s) (LIPITOR) 80 mg ORAL AT BEDTIME enoxaparin 40 mg injection (LOVENOX) 40 mg SUBCUTANEOUS q [address] 40 mg tab(s) (PROTONIX) 40 mg ORAL DAILY (6 AM) polyethylene glycol 3350 17 g packet (MIRALAX, GLYCOLAX) 17 g ORAL DAILY senna-docusate 8.6-50 mg 1 tablet (SENNA-S) 1 tablet ORAL BID acetaminophen 325-650 mg tab(s) (TYLENOL) 325-650 mg ORAL q 6 H PRN albuterol 2.5 mg /3 mL (0.083 %) 2.5 mg (PROVENTIL) 2.5 mg INHALATION q 2 H PRN melatonin 3 mg tab(s) 3 mg ORAL HS PRN morphine 2 mg injection 2 mg INTRAVENOUS q 2 H PRN ondansetron (PF) 4 mg injection (ZOFRAN) 4 mg INTRAVENOUS q 6 H PRN oxyCODONE IR 5-10 mg tab(s) (ROXICODONE) 5-10 mg ORAL q 3 H PRN pill splitter (patient-specific) 1 Each Miscell. (Med.Supl.;Non- Drugs) PRN potassium chloride ER 20 mEq tab(s) (K-DUR, KLOR-CON) 20 mEq ORAL TID bisacodyl 10 mg suppository (DULCOLAX) 10 mg RECTAL DAILY PRN metoprolol tartrate (short acting) 50 mg tab(s) (LOPRESSOR) 50 mg ORAL q 8 H dextrose 40 % 15 g 15 g ORAL PRN Or glucagon 1 mg injection (GLUCAGEN) 1 mg INTRAMUSCULAR PRN Or dextrose 50% in water 25 mL syringe 12.5 g INTRAVENOUS PRN insulin lispro pen (rapid acting) (HumaLOG KWIKPEN) SUBCUTANEOUS w MEALS Respiratory/Nursing Documentation: O2 Therapy: Nasal Cannula (04/02/18 1000) Invasive Ventilator Mode: Continuous Positive Airway Pressure;Pressure Support Ventilation (found on CPAP per RN, not notified.) (03/28/182350) Set Ventilator Respiratory Rate (BPM): 12 (03/28/182212) Total Respiratory Rate (BPM): 22 (03/28/182350) Tidal Volume Set (mL): 500 (03/28/182212) Exhaled Tidal Volume (mL): 502 (03/28/182350) Minute Volume (L): 10.8 (03/28/182350) Peak Inspiratory Pressure (cm H2O): 16 (03/28/182350) PEEP/CPAP (cm H2O): 5 (03/28/182350) Lines, Drains, and Airways Line Peripheral Assessment Short Left Forearm 20 Gauge -- days Peripheral 03/31/18 1119 Short Left Antecubital 20 Gauge 2 days PHYSICAL EXAMINATION: Vitals-reviewed and noted above. Lines/Drains in place as noted above. On 3L nc, sitting up in chair Obese, following commands Thick neck Median sternotomy Mild crackles at bases, diminished on L RRR Ab distended mildly but BS+, NT No edema No acute rash DATA: All data reviewed, including, but not limited to, data noted below. All diagnostic tests, including labs/specimens and imaging, were personally reviewed by me. MICRO: CXR FINDINGS: 04/02: Overall, no significant interval change. ?Status post median sternotomy. ?Probable ?small left pleural effusion along with volume loss and atelectasis. ?Focal rounded opacity along the periphery of the mid left lung is unchanged. ?Right lung ?grossly appears clear. ?Stable cardiac enlargement. ? 03/31: Recent removal of left thoracostomy tube. ?There is now a tiny left apical pneumothorax. 03/29 : Portable frontal view of the chest shows endotracheal tube and enteric tube have been removed. ? Right internal jugular Stark-Nohelia catheter with tip in the pulmonary outflow tract. ? Mediastinal drain overlying the inferior aspect mediastinum. ? Left-sided chest tube overlying left mid chest. ? Cardiac silhouette remains mildly enlarged. ? Widening of the superior mediastinum. ?Stable. ? Lungs are remarkable for probable atelectasis at the left lung base. ? IMPRESSION: ? Status post extubation. OTHER DIAGNOSTICS/ IMAGING: Impression/Recommendations Critical Care Documentation: The patient has the following organ/system impairment(s): 57 yo WM w/ the following: # CAD w/ NSTEMI I s/p CABG x 4v 03/28/18 # Acute post-op respiratory insufficiency; s/p extubated as expected on 03/28/18 # New Afib w/ RVR- now back on NSR # Suspect atelectasis in s/o splinting d/t pain # L pleural effusion vs atelectasis # Anticipated post-op hypotension- resolved # Post-op anemia # Leukocytosis- post-op- downtrending # TEOFILO on home CPAP PLAN: - Wean FiO2 to >90% - Needs additional diuresis; 40mg po lasix today and reassess. - Cont CPAP w/ naps and qhs at 8cm H20- can use hospital machine - Pain control w/ oxycodone IR q3 hr prn and continue w/ acetaminophen prn - Encourage IS/OOB - Cardiology following: ASA, statin, BB - Amiodarone management per cards - BG management per endocrine Prognosis: Progressing favorably Code Status: Full Patient/Family Updated: Patient was updated regarding?the?goals of care,?medical plan for the day, it consultant recommendations, medical disposition and current medical condition/prognosis as clinically indicated. All questions and concerns, if any, were answered and addressed at this juncture. Discussed with staff. SIGNATURE: Martha Chester MD [facility] Department of Pulmonary and Critical Care Medicine DATE of SERVICE: April 02, 2018 TIME of SERVICE: 11:34 AM CHEST 1 VIEW Observed: 04/02/2018 Status: F Source: [facility] 6:13 AM HEALTH SYSTEM REPOSITORY Performed at [facility] APPROVED BY: Reji Sterling MD EXAM TITLE: CHEST 1 VIEW DATE: 04/02/2018 05:36 COMPARISON: Prior studies with the most recent performed one day ago CLINICAL INDICATION/HISTORY: Postoperative/postprocedural assessment, symptomatic TECHNIQUE: AP upright portable chest FINDINGS: Overall, no significant interval change. Status post median sternotomy. Probable small left pleural effusion along with volume loss and atelectasis. Focal rounded opacity along the periphery of the m id left lung is unchanged. Right lung grossly appears clear. Stable cardiac enlargement. IMPRESSION: No significant change. HEMOGRAM Collected: 04/02/2018 Status: F Source: [facility] 3:45 AM HEALTH SYSTEM REPOSITORY TYPE CODE TESTS RESULT OUT OF REFERENCE UNITS RANGE LAB WBC(LOINC) 4.23-9.07 thou/cmm WBC 7.43 LAB RBC(LOINC) 4.63-6.08 mil/cmm Low RBC 2.43 LAB HGB(LOINC) 13.7-17.5 g/dL Low Hgb 7.8 LAB HCT(LOINC) 40.1-51.0 % Low Hct 22.7 LAB MCV(LOINC) 83.2-95.6 fl MCV 93.4 LAB MCH(LOINC) 25.7-32.2 pg MCH 32.1 LAB MCHC(LOINC 32.3-36.5 % ) MCHC 34.4 LAB RDW(LOINC) 11.6-14.4 % RDW 12.9 LAB RDWSD(LOIN 36.1-45.8 fl C) RDW SD 44.3 LAB PLT(LOINC) 141-365 thou/cmm Platelet 208 LAB MPV(LOINC) 8.7-12.0 fl MPV 10.5 LAB NRBCR(LOIN 0.0-0.2 % C) High Nucleated RBC % 0.3 LAB NRBCA(LOIN 0.00-0.01 thou/cmm C) High Nucleated RBC 0.02 Absolute Performed By: #### CBC1 #### [place] [id number] BASIC PANEL Collected: 04/02/2018 Status: F Source: [facility] 3:45 AM HEALTH SYSTEM REPOSITORY TYPE CODE TESTS RESULT OUT OF REFERENCE UNITS RANGE LAB NA(LOINC) 136-145 mEq/L Sodium Blood 137 LAB K(LOINC) 3.5-5.1 mEq/L Potassium Blood 3.5 LAB CL(LOINC) 98-107 mEq/L Chloride Blood 103 LAB CO2(LOINC) 21-32 mEq/L CO2 Blood 24 LAB GLU(LOINC) 70-99 mg/dL Glucose Blood 90 LAB BUN(LOINC) 7-18 mg/dL BUN High Blood 27 LAB CREA(LOINC 0.67-1.17 mg/dL ) Creatinine Blood 0.85 LAB CA(LOINC) 8.5-10.1 mg/dL Low Calcium Blood 7.9 LAB ANGAP(LOIN 8-16 C) Anion Gap 14 Performed By: #### P8 #### [facility] [address] [address] MAGNESIUM BLOOD Collected: 04/02/2018 Status: F Source: [facility] 3:45 AM HEALTH SYSTEM REPOSITORY TYPE CODE TESTS RESULT OUT OF REFERENCE UNITS RANGE LAB MAG(LOINC) 1.6-2.6 mg/dL Magnesium Blood 2.3 Performed By: #### MAG #### [facility] [address] [address] PROCEDURE Observed: 04/01/2018 Status: COMPLETED Source: [facility] 5:17 PM CLINIC OTHER CAMPUS REPOSITORY HNO ID: [id number] Author: Karen Ivan) Nelson Service: Cardiovascular Medicine Author Type: Nurse Practitioner Type: Procedures Filed: 04/01/2018 5:18 PM Note Text: BEDSIDE PROCEDURE NOTE EPICARDIAL PACING WIRE REMOVAL Date/Start Time: 04/01/2018 5:17 PM Performed by: KAREN BALL (JUAN) Authorized by: KAREN BALL (JUAN) Consent/Trego Protocol Time Out completed: Team confirms correct patient, procedure, side/site, position (if applicable) and completion AND review of fire risk assessment/protocols (if appropriate) Affirmation of Time Out: Yes Pre-procedure Details: Personnel directly involved with the procedure wore the appropriate PPE. The area was prepped with alcohol and allowed to dry. Procedure Details: Epicardial pacing wires removed without difficulty, tip intact. Post-procedure Details: Patient tolerated the procedure well with no immediate complications SIGNATURE: Karen Ball APRN.CNP PATIENT NAME: Carlos Buckner DATE: April 01, 2018 TIME: 5:17 PM PAGER/CONTACT #: [phone] CONSULT PROG Observed: 04/01/2018 Status: COMPLETED Source: [facility] 12:00 PM CLINIC OTHER CAMPUS REPOSITORY HNO ID: [id number] Author: Ifeoma Cadena Service: Endocrinology Author Type: Physician Type: Consult Progress Note Filed: 04/01/2018 11:06 PM Note Text: ENDOCRINOLOGY CONSULT PROGRESS NOTE SERVICE DATE: 06/01/2017 SERVICE TIME: 12:00pm Subjective INTERVAL HPI: pt seen for diabetes mellitus;was on Levemir 30 units qam and prandial humalog 10 units qac tid plus correction prior to surgery; iv insulin gtt stopped 03/31/18, now on levemir 40 units bid and humalog 24 units qac tid; eating better; no nausea; s/p CABG 03/28 DIET HEART HEALTHY Recent Labs 04/01/18 2108 04/01/18 1655 04/01/18 1138 04/01/18 0159 03/31/18 0427 03/30/18 0230 GLUC -- -- -- -- 78 -- 96 -- 187* GLUCOSEMETER 146* 137* 135* < > -- < > -- < > -- < > = values in this interval not displayed. Current hospital medications: amiodarone 360 mg in D5W 200 mL (NEXTERONE) 0.5 mg/min INTRAVENOUS CONTINUOUS amiodarone 400 mg tab(s) (PACERONE) 400 mg ORAL TID 0.9% NaCl 2-10 mL 2-10 mL INTRAVENOUS q 12 H aspirin 162 mg chewable tab(s) 162 mg ORAL DAILY atorvastatin 80 mg tab(s) (LIPITOR) 80 mg ORAL AT BEDTIME enoxaparin 40 mg injection (LOVENOX) 40 mg SUBCUTANEOUS q 24 HR [START ON 04/02/2018] pantoprazole DR 40 mg tab(s) (PROTONIX) 40 mg ORAL DAILY (6 AM) polyethylene glycol 3350 17 g packet (MIRALAX, GLYCOLAX) 17 g ORAL DAILY senna-docusate 8.6-50 mg 1 tablet (SENNA-S) 1 tablet ORAL BID acetaminophen 325-650 mg tab(s) (TYLENOL) 325-650 mg ORAL q 6 H PRN albuterol 2.5 mg /3 mL (0.083 %) 2.5 mg (PROVENTIL) 2.5 mg INHALATION q 2 H PRN melatonin 3 mg tab(s) 3 mg ORAL HS PRN morphine 2 mg injection 2 mg INTRAVENOUS q 2 H PRN ondansetron (PF) 4 mg injection (ZOFRAN) 4 mg INTRAVENOUS q 6 H PRN oxyCODONE IR 5-10 mg tab(s) (ROXICODONE) 5-10 mg ORAL q 3 H PRN pill splitter (patient-specific) 1 Each Miscell. (Med.Supl.;Non- Drugs) PRN potassium chloride ER 20 mEq tab(s) (K-DUR, KLOR-CON) 20 mEq ORAL TID bisacodyl 10 mg suppository (DULCOLAX) 10 mg RECTAL DAILY PRN metoprolol tartrate (short acting) 50 mg tab(s) (LOPRESSOR) 50 mg ORAL q 8 H insulin lispro 24 Units pen (rapid acting) (HumaLOG KWIKPEN) 24 Units SUBCUTANEOUS w MEALS insulin glargine 40 Units pen (long acting) (LANTUS SOLOSTAR, BASAGLAR KWIKPEN) 40 Units SUBCUTANEOUS BID dextrose 40 % 15 g 15 g ORAL PRN glucagon 1 mg injection (GLUCAGEN) 1 mg INTRAMUSCULAR PRN dextrose 50% in water 25 mL syringe 12.5 g INTRAVENOUS PRN insulin lispro pen (rapid acting) (HumaLOG KWIKPEN) SUBCUTANEOUS w MEALS Objective PHYSICAL EXAM: BP 127/113 Pulse 83 Temp (Src) 98.8 (Temporal Artery) Resp 18 Ht 5' 8 (1.73m) Wt 256 lb 6.3 oz (116.3kg) SpO2 100% BMI 38.99 kg/(m2). General: some distress , alert, well-hydrated, well nourished;Obese Skin: skin color, texture, turgor normal, no rashes or lesions. Head: normocephalic, no masses, lesions, tenderness or abnormalities. Eyes: SUSAN,EOMI Oropharynx: moist Neck: Supple, no adenopathy; thyroid symmetric, normal size, no bruits Chest: midsternal incision c/d/i Heart: RRR without murmur, gallop, or rubs. No ectopy Abdomen: soft, non-tender, positive bowel sounds Extremities: no edema, no calluses or ulcers present. Peripheral Pulses: posterior tibial and doralis pedis pulses 2+ and symmetrical ? DATA: Diagnostic tests reviewed for today's visit: Most recent labs and imaging results. Assessment/Plan DM (diabetes mellitus), type 2, uncontrolled; HbA1c 8.2; on oral antihyperglycemics (Metformin/Amaryl/Jardiance) at home; now with complications; ? CAD (coronary artery disease) severe. ?ACS (acute coronary syndrome) s/p revascularization on 03/28 ? Hyperlipemia POA: Yes Assessment AND Plan: per 1 service ? TEOFILO (obstructive sleep apnea) POA: Yes Assessment AND Plan: per 1 service. ? Recommendations: discontinued oral antihyperglycemics; now on prog insulin levemir 40,0,0,40 units qhs, Humalog 24 units qac plus correction; iv insulin gtt discontinued 03/31/18; cont rx SIGNATURE: Ifeoma Cadena MD PATIENT NAME: Carlos Buckner DATE: April 01, 2018 TIME: 11:05 PM PAGER: [phone] CASE MANAGEM Observed: 04/01/2018 Status: COMPLETED Source: [place] 11:52 AM [facility] REPOSITORY HNO ID: [id number] Author: Janna Lind RN Service: Care Management Author Type: Registered Nurse Type: Care Mgt Progress Note Filed: 04/01/2018 11:53 AM Note Text: CARE MANAGEMENT PROGRESS NOTE SERVICE DATE: 04/01/2018 SERVICE TIME: 11:52 AM LOS: 11 days Needs Prior to Discharge: Home Care Order Chart reviewed, events noted. On Amio drip. S/p CABG POD4. VNS following. SIGNATURE: Janna Lind RN PATIENT NAME: Carlos Buckner DATE: April 01, 2018 TIME: 11:52 AM PAGER/CONTACT #: [phone] PROGRESS Observed: 04/01/2018 Status: COMPLETED Source: [place] 11:04 AM [facility] OTHER [place] REPOSITORY HNO ID: [id number] Author: Karen Ball Service: Cardiovascular Medicine Author Type: Nurse Practitioner Type: Progress Notes Filed: 04/01/2018 4:50 PM Note Text: CARDIOTHORACIC SURGERY POSTOP PROGRESS NOTE SERVICE DATE: 04/01/2018 SERVICE TIME: 11:04AM Subjective S/P SURGERY: Procedure(s) (LRB): BYPASS GRAFT ARTERY CORONARY ON-PUMP USING VENOUS GRAFT(S) AND ARTERIAL GRAFT(S) THREE VENOUS GRAFTS (N/A) DATE OF SURGERY: 03/28/2018 POSTOP DAY #4 LOS: 11 INTERVAL EVENTS / PERTINENT ROS: c/o pain but is tolerable. States I'm trying to take deeper breaths but I'm not used to it. Denies SOB or N/V. Went into afib with RVR overnight and O2 requirements increased as well. Objective Admission Weight: 106.7 kg (235 lb 3.2 oz) BP 98/63 Pulse 72 Temp 37 ?C (98.6 ?F) (Tympanic) Resp 18 Ht 172.7 cm (5' 8) Wt 116.3 kg (256 lb 6.3 oz) SpO2 98% BMI 38.98 kg/m? Body surface area is 2.36 meters squared. Min/Max/Average Temperature AND Blood Pressure: Temp (24hrs), Av.2 ?C (99 ?F), Min:36.8 ?C (98.2 ?F), Max:37.7 ?C (99.9 ?F) Systolic (24hrs), Av , Min:98 , Max:134 Diastolic (24hrs), Av, Min:60, Max:85 Intake/Output Summary (Last 24 hours) at 04/01/18 1604 Last data filed at 04/01/18 1200 Gross per 24 hour Intake 261.1 ml Output 2500 ml Net -2238.9 ml TELEMETRY: atrial fibrillation PHYSICAL EXAM: General Appearance: obese, no distress and sitting up in bed Skin: Midsternal incision dry AND intact., SVG incisions dry AND intact., warm and dry Lungs: clear and respiratory effort: normal Heart: S1, S2 normal, pacing wires present and irregular Abdomen: soft, non-tender and bowel sounds present Genitourinary: voiding without difficulty Extremities: edema: 2+, non-pitting, bilateral LE Lines, Drains, and Airways Line Peripheral Assessment Short Left Forearm 20 Gauge -- days Peripheral 03/31/18 1119 Short Left Antecubital 20 Gauge 1 day DATA: Diagnostic tests reviewed for today's visit: CXR with atelectasis Recent Labs 04/01/18 0159 03/31/18 0427 03/30/18 0230 RBC 2.64* 2.65* 2.71* WBC 10.84* 10.16* 8.42 HB 8.3* 8.5* 8.5* HCT 24.0* 24.6* 25.5* PLT 170 119* 84* NA 137 139 139 K 3.2* 3.3* 3.7 CHLOR 103 105 108* CO2 25 25 20* BUN 26* 20* 14 CREAT 0.92 0.88 0.85 GLUC 78 96 187* CA 8.3* 8.5 7.7* MG 2.1 -- 1.8 ANION 12 12 15 Recent Labs 04/01/18 0314 PH 7.476* PCO2 33.1* PO2 57.1* BE 0.5 Assessment/Plan NSTEMI with severe 3V CAD s/p CABG x3 -POD#4 -c/w ASA, statin, BB - (error KF 04/01/2018 4:46 PM). Discussed with Dr. Rose; If pt remains in NSR and does not require anticoagulation, will consider dual-antiplatelet therapy for ACS. -Post thorax vest -Pain control -Strongly encourage IS AND ambulation -c/w bowel regimen. If no BM by POD#5, give suppository ? Post op afib with RVR -Went back into afib last evening (error KF 04/01/2018 4:48 PM) -Converted to NSR around 7:00am this morning and remains in NSR. -Back on IV Amiodarone; continue with PO Amiodarone 400 TID -Plan to dc drip tomorrow. -Increase metoprolol to 50mg TID. -[id number]=5; Consider anticoagulation if he goes back into afib again. ? Anticipated acute hypoxic respiratory insufficiency -2/2 pulmonary edema/ atelectasis -Diuresed with IV lasix early am and PO Lasix dose today as well -Encouraged CANDDB, incentive spirometer -Increase activity ? Hypokalemia -K+ 3.2 > Replaced IV KCl and added PO supplementation -Keep K>/=4 and Mag >/=2. -Continue to monitor ? DM2 -Insulin per Endocrinology ? Anticipation acute blood loss anemia -Asymptomatic -No transfusion indicated ? Thrombocytopenia -Reactive; resolved. ? DVT ppx -SCD/ Lovenox Tests/Labs Ordered: 1. Chest X-ray 2. BMP 3. CBC SIGNATURE: Karen Ball APRN.CNP PATIENT NAME: Carlos Buckner DATE: April 01, 2018 TIME: 4:04 PM PAGER/CONTACT #: [phone] ETX [id number] PROGRESS Observed: 04/01/2018 Status: COMPLETED Source: [place] 11:00 AM CL[facility] OTHER CAMPUS REPOSITORY HNO ID: [id number] Author: Martha Chester Service: Critical Care Author Type: Physician Type: Progress Notes Filed: 04/01/2018 1:27 PM Note Text: MICU - PROGRESS NOTE SERVICE DATE: 04/01/2018 Admission Date: 03/21/2018 AGE: [age] year old LOS: 11 days REASON FOR ICU ADMISSION: s/p CABG, anticipated post-op respiratory insufficiency Subjective HPI/Interval history: Was transferred to floors yesterday, but brought back for Afib w/ RVR. IMporved w/ amiodarone, now on amiodarone gtt and HDS. On 6L nc. Feels sore from SCDs, somewhat SOB but no tachypnea. Received lasix this AM PAST MEDICAL HISTORY Diagnosis Date - CAD (coronary artery disease) - HLD (hyperlipidemia) - HTN (hypertension) 06/10/2017 - Obstructive sleep apnea - Type II or unspecified type diabetes mellitus without mention of complication, not stated as uncontrolled Objective VITAL SIGNS (last 24hrs min/max): Temp Av.6 ?C (99.7 ?F) Min: 36.2 ?C (97.2 ?F) Max: 38.5 ?C (101.3 ?F) Pulse Av Min: 77 Max: 117 Arterial BP 1 Min: 84/57 Max: 152/82 Cuff BP Min: 92/62 Max: 117/64 Pain Score: 10/10 Vital signs reviewed. BP 100/65 Pulse 86 Temp (Src) 99.3 (Temporal Artery) Resp 19 Ht 5' 8 (1.73m) Wt 252 lb 3.3 oz (114.4kg) SpO2 100% BMI 38.36 kg/(m2). Temp (24hrs), Av.1 ?C (98.7 ?F), Min:36 ?C (96.8 ?F), Max:37.7 ?C (99.9 ?F) NET FLUID BALANCE Intake/Output Summary (Last 24 hours) at 04/01/18 1319 Last data filed at 04/01/18 1200 Gross per 24 hour Intake 485.3 ml Output 2500 ml Net -2014.7 ml MEDICATIONS Current Facility-Administered Medications: amiodarone 360 mg in D5W 200 mL (NEXTERONE) 0.5 mg/min INTRAVENOUS CONTINUOUS amiodarone 400 mg tab(s) (PACERONE) 400 mg ORAL TID 0.9% NaCl 2-10 mL 2-10 mL INTRAVENOUS q 12 H aspirin 162 mg chewable tab(s) 162 mg ORAL DAILY enoxaparin 40 mg injection (LOVENOX) 40 mg SUBCUTANEOUS q 24 HR polyethylene glycol 3350 17 g packet (MIRALAX, GLYCOLAX) 17 g ORAL DAILY senna-docusate 8.6-50 mg 1 tablet (SENNA-S) 1 tablet ORAL BID acetaminophen 325-650 mg tab(s) (TYLENOL) 325-650 mg ORAL q 6 H PRN albuterol 2.5 mg /3 mL (0.083 %) 2.5 mg (PROVENTIL) 2.5 mg INHALATION q 2 H PRN morphine 2 mg injection 2 mg INTRAVENOUS q 2 H PRN ondansetron (PF) 4 mg injection (ZOFRAN) 4 mg INTRAVENOUS q 6 H PRN oxyCODONE IR 5-10 mg tab(s) (ROXICODONE) 5-10 mg ORAL q 3 H PRN pill splitter (patient-specific) 1 Each Miscell. (Med.Supl.;Non- Drugs) PRN potassium chloride ER 20 mEq tab(s) (K-DUR, KLOR-CON) 20 mEq ORAL TID bisacodyl 10 mg suppository (DULCOLAX) 10 mg RECTAL DAILY PRN metoprolol tartrate (short acting) 50 mg tab(s) (LOPRESSOR) 50 mg ORAL q 8 H insulin lispro 24 Units pen (rapid acting) (HumaLOG KWIKPEN) 24 Units SUBCUTANEOUS w MEALS insulin glargine 40 Units pen (long acting) (LANTUS SOLOSTAR, BASAGLAR KWIKPEN) 40 Units SUBCUTANEOUS BID dextrose 40 % 15 g 15 g ORAL PRN Or glucagon 1 mg injection (GLUCAGEN) 1 mg INTRAMUSCULAR PRN Or dextrose 50% in water 25 mL syringe 12.5 g INTRAVENOUS PRN insulin lispro pen (rapid acting) (HumaLOG KWIKPEN) SUBCUTANEOUS w MEALS Respiratory/Nursing Documentation: O2 Therapy: Nasal Cannula (04/01/18 1200) Invasive Ventilator Mode: Continuous Positive Airway Pressure;Pressure Support Ventilation (found on CPAP per RN, not notified.) (03/28/182350) Set Ventilator Respiratory Rate (BPM): 12 (03/28/182212) Total Respiratory Rate (BPM): 22 (03/28/182350) Tidal Volume Set (mL): 500 (03/28/182212) Exhaled Tidal Volume (mL): 502 (03/28/182350) Minute Volume (L): 10.8 (03/28/182350) Peak Inspiratory Pressure (cm H2O): 16 (03/28/182350) PEEP/CPAP (cm H2O): 5 (03/28/182350) Lines, Drains, and Airways Line Peripheral Assessment Short Left Forearm 20 Gauge -- days Peripheral 03/31/18 1119 Short Left Antecubital 20 Gauge 1 day PHYSICAL EXAMINATION: Vitals-reviewed and noted above. Lines/Drains in place as noted above. On 6L nc, laying in bed Obese, following commands Thick neck Median sternotomy Mild crackles at bases Vest noted RRR Ab distended mildly but BS+, NT Trace to 1+ edema in LE No acute rash DATA: All data reviewed, including, but not limited to, data noted below. All diagnostic tests, including labs/specimens and imaging, were personally reviewed by me. MICRO: CXR FINDINGS: 03/31: Recent removal of left thoracostomy tube. ?There is now a tiny left apical pneumothorax. 03/29 : Portable frontal view of the chest shows endotracheal tube and enteric tube have been removed. ? Right internal jugular Stark-Nohelia catheter with tip in the pulmonary outflow tract. ? Mediastinal drain overlying the inferior aspect mediastinum. ? Left-sided chest tube overlying left mid chest. ? Cardiac silhouette remains mildly enlarged. ? Widening of the superior mediastinum. ?Stable. ? Lungs are remarkable for probable atelectasis at the left lung base. ? IMPRESSION: ? Status post extubation. OTHER DIAGNOSTICS/ IMAGING: Impression/Recommendations Critical Care Documentation: The patient has the following organ/system impairment(s): 57 yo WM w/ the following: # CAD w/ NSTEMI I s/p CABG x 4v 03/28/18 # Acute post-op respiratory insufficiency; s/p extubated as expected on 03/28/18 # New Afib w/ RVR- now back on NSR # Suspect atelectasis in s/o splinting d/t pain # Anticipated post-op hypotension- resolved # Post-op anemia # Leukocytosis- post-op # TEOFILO on home CPAP PLAN: - Wean FiO2 to >90% - Agree w/ diuresis - Monitor WBC for now. - Cont CPAP w/ naps and qhs at 8cm H20 - Pain control w/ oxycodone IR q3 hr prn and continue w/ acetaminophen prn - Encourage IS/OOB - Cardiology following: ASA, statin, BB - Amiodarone management per cards - BG management per endocrine Prognosis: Progressing favorably Code Status: Full Patient/Family Updated: Patient was updated regarding?the?goals of care,?medical plan for the day, it consultant recommendations, medical disposition and current medical condition/prognosis as clinically indicated. All questions and concerns, if any, were answered and addressed at this juncture. Discussed with staff. SIGNATURE: Martha Chester MD [facility] Department of Pulmonary and Critical Care Medicine DATE of SERVICE: April 01, 2018 TIME of SERVICE: 11:37 AM EKG Observed: 04/01/2018 Status: F Source: [place] 7:14 AM [facility] OTHER CAMPUS REPOSITORY NAME : CARLOS BUCKNER PID : [id number] : 1960 Gender : Male Race : ORD : Procedure Date : Apr 01 2018 07:14 Edit Date : Apr 04 2018 14:19 Diagnosis:NORMAL SINUS RHYTHM NONSPECIFIC ST-T WAVE CHANGES PROLONGED QT ABNORMAL ECG WHEN COMPARED WITH ECG OF 30-MAR-2018 06:46, NONSPECIFIC T WAVE ABNORMALITY NOW EVIDENT IN LATERAL LEADS QT HAS LENGTHENED Confirmed by MD Simeon, Bentley ([id number]) on 04/04/2018 2:18:57 PM Ventricular Rate : 94 BPM Atrial Rate : 94 BPM P-R Interval : 170 ms QRS Duration : 90 ms Q-T Interval : 428 ms QTC Calculation(Bezet) : 535 ms P [place] : 59 degrees R [place] : 60 degrees T [place] : 13 degrees Test Reason : Location : 6 : [place] [address] Overread By : MD Hendrix Anubhav Editted By : MD Hendrix Anubhav Referred By : MIKE ROSE Acquired by : Brandon FARFAN NURSING PROG Observed: 04/01/2018 Status: COMPLETED Source: [place] 7:00 AM [facility] REPOSITORY HNO ID: [id number] Author: Akilah MadisonRn) KENYETTA Rodriguez Service: Nursing Author Type: Registered Nurse Type: Nursing Progress Note Filed: 04/01/2018 7:05 AM Note Text: Pt now SR on monitor. Resp called for stat EKG. Pt c/o discomfort to chest. Tailbone and arm. Morphine 4mg iv given. Pt tolerated well. Resting with eyes closed. Will cont to monitor closely. NURSING PROG Observed: 04/01/2018 Status: COMPLETED Source: [place] 6:20 AM [facility] REPOSITORY HNO ID: [id number] Author: Akilah MadisonRn) KENYETTA Rodriguez Service: Nursing Author Type: Registered Nurse Type: Nursing Progress Note Filed: 04/01/2018 6:45 AM Note Text: Pt transferred to [place] [address]. Remains afib on monitor. Pt a/o x3. Aware of surroundings. Denies chest pain just discomfort due to work of breathing. Potassium ordered and magnesium in lab sent. Amiodarone gtt also ordered per dr rose. Pt education given on replacement and monitor. No questions at present time. Will continue to monitor closely. NURSING PROG Observed: 04/01/2018 Status: COMPLETED Source: [place] 5:27 AM [facility] REPOSITORY HNO ID: [id number] Author: Salud MadisonRn) KENYETTA Ward Service: (none) Author Type: Registered Nurse Type: Nursing Progress Note Filed: 04/01/2018 5:27 AM Note Text: Nursing Progress Note Patient Name: Carlos Buckner Patient Location: [place] [address] [address]* Report called to Crystal in CVICU. Will transport patient when room cleaned. This note was completed by: Salud Ward RN NURSING PROG Observed: 04/01/2018 Status: COMPLETED Source: [place] 4:54 AM [facility] REPOSITORY HNO ID: [id number] Author: Salud MadisonRn) KENYETTA Ward Service: (none) Author Type: Registered Nurse Type: Nursing Progress Note Filed: 04/01/2018 4:55 AM Note Text: Nursing Progress Note Patient Name: Carlos Buckner Patient Location: [place] [address] [address]* RN [address] Rose of patient HR between 100-150 bpms. Patient in and out of afib as well. Patient remains 92% on 10L high flow, is pale and diaphoretic. Dr. Rose ordered to transfer patient to CVICU and start amiodarone gtt. Ops Center notified. This note was completed by: Salud Ward RN NURSING PROG Observed: 04/01/2018 Status: COMPLETED Source: [place] 4:07 AM [facility] REPOSITORY HNO ID: [id number] Author: Salud (Rn) KENYETTA Ward Service: (none) Author Type: Registered Nurse Type: Nursing Progress Note Filed: 04/01/2018 4:08 AM Note Text: Nursing Progress Note Patient Name: Carlos Buckner Patient Location: [place] [address]/[place] [address]* Dr. Pinto notified of patient ABG results. Dr. Pinto will evaluate patient at bedside. This note was completed by: Salud Ward RN NURSING PROG Observed: 04/01/2018 Status: COMPLETED Source: [place] 3:24 AM CLINIC OTHER CAMPUS REPOSITORY HNO ID: [id number] Author: Salud (Rn) KENYETTA Ward Service: (none) Author Type: Registered Nurse Type: Nursing Progress Note Filed: 04/01/2018 3:24 AM Note Text: Nursing Progress Note Patient Name: Carlos Buckner Patient Location: [place] [address]/[place] [address]* ABGs ordered, respiratory care at bedside. This note was completed by: Salud Ward RN BLOOD GAS ARTERIAL Collected: 04/01/2018 Status: F Source: [facility] 3:14 AM HEALTH SYSTEM REPOSITORY TYPE CODE TESTS RESULT OUT OF REFERENCE UNITS RANGE LAB FIO2(LOINC % ) FIO2 10 LAB TEMPA(LOIN C) Temperature 37.2 LAB PH(LOINC) 7.350-7.450 pH Arterial High 7.476 LAB PCO2(LOINC 36.0-46.0 mm Hg ) Low PCO2 Arterial 33.1 LAB PO2(LOINC) 85.0-96.0 mm Hg Low PO2 Arterial 57.1 LAB HCO3A(LOIN 22.0-26.0 mEq/L C) HCO3- 23.8 LAB O2%A(LOINC 95.0-98.0 % ) Low O2% Sat Arterial 94.0 LAB BASEX(LOIN -2.5 to 2.5 mEq/L C) Base Excess 0.5 Performed By: #### ABG #### [facility] [address] [place] [address] CHEST 1 VIEW Observed: 04/01/2018 Status: F Source: [facility] 2:37 AM HEALTH SYSTEM REPOSITORY Performed at [facility] APPROVED BY: NISSA SIBLEY MD TECHNIQUE: CHEST 1 VIEW x-ray EXAM DATE: 04/01/2018 2:37 AM COMPARISON STUDIES: 03/31/2018 CLINICAL HISTORY: Shortness of breath , Tachycardia RESULT: Median sternotomy. Grossly stable enlarged cardiomediastinal silhouette. Stable small left pleural effusion and probable small right pleural effusion. Persistent hazy left mid and lower lung opacities with more focal appearing 1.8 cm nodular opacity lateral left midlung. No pneumothorax. IMPRESSION: No pneumothorax identified. Otherwise no interval change. 1.8 cm lateral left midlung nodular opacity is unchanged, could reflect atelectasis or inflammation/infection in the acute setting. Mass is thought less likely as no corresponding findings seen from . Follow-up chest x-ray recommended to ensure appropriate resolution. HEMOGRAM Collected: 04/01/2018 Status: F Source: [facility] 1:59 [facility] REPOSITORY TYPE CODE TESTS RESULT OUT OF REFERENCE UNITS RANGE LAB WBC(LOINC) 4.23-9.07 thou/cmm High WBC 10.84 LAB RBC(LOINC) 4.63-6.08 mil/cmm Low RBC 2.64 LAB HGB(LOINC) 13.7-17.5 g/dL Low Hgb 8.3 LAB HCT(LOINC) 40.1-51.0 % Low Hct 24.0 LAB MCV(LOINC) 83.2-95.6 fl MCV 90.9 LAB MCH(LOINC) 25.7-32.2 pg MCH 31.4 LAB MCHC(LOINC) 32.3-36.5 % MCHC 34.6 LAB RDW(LOINC) 11.6-14.4 % RDW 12.6 LAB RDWSD(LOINC 36.1-45.8 fl ) RDW SD 41.5 LAB PLT(LOINC) 141-365 thou/cmm Platelet 170 LAB MPV(LOINC) 8.7-12.0 fl MPV 10.6 Performed By: #### CBC1 #### [facility] [address] [place] [address] BASIC PANEL Collected: 04/01/2018 Status: F Source: [facility] 1:59 AM HEALTH SYSTEM REPOSITORY TYPE CODE TESTS RESULT OUT OF REFERENCE UNITS RANGE LAB NA(LOINC) 136-145 mEq/L Sodium Blood 137 LAB K(LOINC) 3.5-5.1 mEq/L Low Potassium Blood 3.2 LAB CL(LOINC) 98-107 mEq/L Chloride Blood 103 LAB CO2(LOINC) 21-32 mEq/L CO2 Blood 25 LAB GLU(LOINC) 70-99 mg/dL Glucose Blood 78 LAB BUN(LOINC) 7-18 mg/dL BUN High Blood 26 LAB CREA(LOINC 0.67-1.17 mg/dL ) Creatinine Blood 0.92 LAB CA(LOINC) 8.5-10.1 mg/dL Low Calcium Blood 8.3 LAB ANGAP(LOIN 8-16 C) Anion Gap 12 Performed By: #### P8 #### [place] [address] MAGNESIUM BLOOD Collected: 04/01/2018 Status: F Source: [facility] 1:59 AM HEALTH SYSTEM REPOSITORY TYPE CODE TESTS RESULT OUT OF REFERENCE UNITS RANGE LAB MAG(LOINC) 1.6-2.6 mg/dL Magnesium Blood 2.1 Performed By: #### MAG #### [place] [address] NURSING PROG Observed: 04/01/2018 Status: COMPLETED Source: [place] 1:30 AM CLINIC OTHER CAMPUS REPOSITORY O ID: [id number] Author: Salud (Rn) KENYETTA Ward Service: (none) Author Type: Registered Nurse Type: Nursing Progress Note Filed: 04/01/2018 3:24 AM Note Text: Nursing Progress Note Patient Name: Carlos Buckner Patient Location: [id number]/[facility]0-421* Patient diminished breath sounds and o2 saturation 91% on 10L of high flow. Dr. Pinto with pulmonology notified. STAT chest xray ordered and 40mg IV lasix This note was completed by: Salud Ward RN NURSING PROG Observed: 04/01/2018 Status: COMPLETED Source: [place] 12:38 AM [facility] REPOSITORY HNO ID: [id number] Author: Salud (Rn) KENYETTA Ward Service: (none) Author Type: Registered Nurse Type: Nursing Progress Note Filed: 04/01/2018 12:41 AM Note Text: Nursing Progress Note Patient Name: Carlos Buckner Patient Location: [place] [address]/[address]* Tech took patient vitals and O2 sat was 87% on CPAP. RN placed patient on NC andPatient O2 sats 87%-91% on 6L. Patient heart rhythm tachycardic and flipped into atrial fibrillation momentarily. Dr. Rose notified. RN ordered to give 2.5 mg IV lopressor, 400 mg PO amiodarone. If patient continues to desat, pulm is to be notified and if heart rate unable to be maintained, patient is to be transferred back to CVICU for amio gtt per Dr. Rose. This note was completed by: Salud Ward RN NURSING PROG Observed: 03/31/2018 Status: COMPLETED Source: [place] 6:43 PM [facility] REPOSITORY HNO ID: [id number] Author: Noel (Rn) KENYETTA Callaway Service: Nursing Author Type: Registered Nurse Type: Nursing Progress Note Filed: 03/31/2018 6:44 PM Note Text: Nursing Progress Note Patient Name: Carlos Buckner Patient Location: [place] [address] [address]* Transfer Note: Patient transferred into room/unit 4217 in stable condition, with all meds, belongings, and family in room. Actions taken: Report given/called to Dilma boothe. This note was completed by: Noel Callaway RN NURSING PROG Observed: 03/31/2018 Status: COMPLETED Source: [place] 3:18 PM [facility] HNO ID: [id number] Author: Diana Acosta) KENYETTA Ramirez Service: Nursing Author Type: Registered Nurse Type: Nursing Progress Note Filed: 03/31/2018 3:22 PM Note Text: Nursing Progress Note Patient Name: Carlos Buckner Patient Location: [place] [address]/[place] [address]* Spoke with Dr. Cadena regarding continuing insulin gtt . Awaiting new orders. States she will place a one time order for Lantus and discontinue gtt 40 mins following administration. Informed Dr. Cadena 1400 BS 109 and PO intake with meals has been poor in quantity of food. States she will put in orders. Will continue to follow. This note was completed by: Diana Ramirez RN PLAN OF CARE Observed: 03/31/2018 Status: COMPLETED Source: [place] 3:02 PM [facility] HNO ID: [id number] Author: (Patient Transportation Driver) Maribell Monae Service: Pharmacy Author Type: Pharmacist Type: Plan of Care Filed: 03/31/2018 3:10 PM Note Text: MEDICATION HISTORY AND MEDICATION RECONCILIATION Patient Name:.Carlos Buckner : 1960 Source of history:Patient: Reliability of source: Appears reliable, clearly identified: Medication name, Medication dose, Medication route and Medication frequency and Pharmacy records: [facility] ([phone]) Medication Nonadherence Identified: Patient states did not follow up with his doctor to obtain new refills for atorvastatin and lisinopril. Atorvastatin was last filled on 11/02/17 for 30 days and lisinopril was last filled 04/2017. The above information represents the best possible medication history: Yes Reconciliation completed? Yes All JOB ESTIMATOR medications addressed by LIP Additional comments: Please note the following changes to the patients JOB ESTIMATOR medication list: - Added daily multivitamin - Left lisinopril and atorvastatin on the list, as patient states that he is supposed to be taking but had ran out of refills. - Of note, non-medications on the list were not verified. -Please see medication list for last fill dates. Allergies: ALLERGIES Allergen Reactions - Oysters Rash, Itching - Shellfish Containin* Rash Preferred Pharmacy: [facility] ([phone]) Current JOB ESTIMATOR Medications: Prior to Admission medications as of 03/31/18 1509 Medication Sig Last Dose Taking inmfjrtg-zvr-BZ-lycopen-lutein (MEN 50 PLUS MULTIVITAMIN) 300-600-300 mcg tab Take 1 tablet by mouth once daily. Yes empagliflozin (JARDIANCE) 25 mg tablet Take 1 tablet by mouth once daily. Yes glimepiride (AMARYL) 4 mg tablet Take 1 tablet by mouth twice daily with meals. Yes metFORMIN (GLUCOPHAGE) 1,000 mg tablet Take 1 tablet by mouth twice daily with meals. Yes Ibuprofen 200 mg cap Take 200 mg by mouth once daily as needed. Yes atorvastatin (LIPITOR) 80 mg tablet TAKE ONE TABLET BY MOUTH ONCE DAILY blood sugar diagnostic (BLOOD GLUCOSE TEST) test strip Test blood sugar(s) 2x daily. Dx: E11.65. Insulin: No lisinopril 2.5 mg tablet Take 1 tablet by mouth once daily. Blood-Glucose Meter monitoring kit Glucose Meter of Choice - Kit - Dx: Type 2 DM - Uncontrolled E11.65 (per insurance) Lancets lancets Test blood sugar(s) 2x daily. Dx: E11.65. Insulin: No COMPOUNDED PRESCRIPTION CPAP @ 8 cm of water with humidification. Mask (per patient preference) optional chin strap (if indicated) , filters, tubing, humidifier and lifetime supplies. Dx. TEOFILO 327.23 MARIBELL MONAE, (SELF PROPELLED HOT MIX ROLLER OPERATOR) March 31, 2018 3:02 PM NURSING PROG Observed: 03/31/2018 Status: COMPLETED Source: [facility] 2:43 PM CLINIC OTHER CAMPUS REPOSITORY HNO ID: [id number] Author: Diana MadisonRn) KENYETTA Ramirez Service: Nursing Author Type: Registered Nurse Type: Nursing Progress Note Filed: 03/31/2018 2:44 PM Note Text: Nursing Progress Note Patient Name: Carlos Buckner Patient Location: [place] [address]/[place] [address]* Dr. Cadena paged regarding insulin gtt and possible discontinuing This note was completed by: Diana Ramirez RN [facility] Observed: 03/31/2018 Status: COMPLETED Source: [place] 2:41 PM CLINIC OTHER CAMPUS REPOSITORY O ID: [id number] Author: Nathan (Rn) KENYETTA Cochran Service: (none) Author Type: Registered Nurse Type: Allied Health Filed: 03/31/2018 2:45 PM Note Text: CARDIAC REHABILITATION PATIENT EDUCATION PROGRESS NOTE Name: Carlos Buckner Date of Service: 03/31/2018 Time of Service: 1440 ASSESSMENT: Risk Factors Identified: Age Diabetic: Insulin Dependent Hyperlipidemia Hypertension Obesity RECOMMENDATIONS: Patient interested in Phase II Outpatient Cardiac Rehab: No. Patient states he will discuss rehab with his an call in to make an orientation appointment. DIAGNOSIS: Open Heart Surgery: CABG Open Heart Surgery Teaching Points: -Basic Anatomy and Disease Process -Personal Modifiable Risk Factor Identification -Activity/Physical Exercise Recommendations -Angina/Heart Attack warning signs and symptoms -Smoking Advice Counseling -When patient should call provider -Outpatient Cardiac Rehabilitation -Personal risk factors: Age, Diabetes, Dyslipidemia, Hypertension and Obesity READINESS TO LEARN: Cognitive Ability: Alert and Oriented Motivation to Learn: Interested Family Support: None - Unavailable/disinterested Instruction Provided To: Patient Patient Learns Best By: Verbal Instruction Factors Affecting Learning: None Physical Limitations Affecting Learning: None LEARNING RESPONSE: Method Of Instruction: Verbal instruction Patient/Family Response: Verbalizes understanding of: cardaic rehab, home walking, heart healthy lifestyle Follow-up Plan: No further educational needs identified at this time. Instructional Aids Used: Educational Binder Signature: Nathan Cochran RN Pager: [phone] Date: March 31, 2018 Time: 2:42 PM PROGRESS Observed: 03/31/2018 Status: COMPLETED Source: [facility] 12:37 PM CLINIC OTHER CAMPUS REPOSITORY HNO ID: [id number] Author: Martha Chester Service: Critical Care Author Type: Physician Type: Progress Notes Filed: 03/31/2018 12:41 PM Note Text: MICU - PROGRESS NOTE SERVICE DATE: 03/31/2018 Admission Date: 03/21/2018 AGE: [age] year old LOS: 10 days REASON FOR ICU ADMISSION: s/p CABG, anticipated post-op respiratory insufficiency Subjective HPI/Interval history: Pain better controlled. Planned to ambulate today Afebrile. No overnight events. PAST MEDICAL HISTORY Diagnosis Date - CAD (coronary artery disease) - HLD (hyperlipidemia) - HTN (hypertension) 06/10/2017 - Obstructive sleep apnea - Type II or unspecified type diabetes mellitus without mention of complication, not stated as uncontrolled Objective VITAL SIGNS (last 24hrs min/max): Temp Av.6 ?C (99.7 ?F) Min: 36.2 ?C (97.2 ?F) Max: 38.5 ?C (101.3 ?F) Pulse Av Min: 77 Max: 117 Arterial BP 1 Min: 84/57 Max: 152/82 Cuff BP Min: 92/62 Max: 117/64 Pain Score: 10/10 Vital signs reviewed. BP 114/66 Pulse 91 Temp (Src) 98.1 (Temporal Artery) Resp 9 Ht 5' 8 (1.73m) Wt 252 lb 3.3 oz (114.4kg) SpO2 94% BMI 38.36 kg/(m2). Temp (24hrs), Av.5 ?C (97.7 ?F), Min:35.2 ?C (95.4 ?F), Max:36.9 ?C (98.4 ?F) NET FLUID BALANCE Intake/Output Summary (Last 24 hours) at 03/31/18 1237 Last data filed at 03/31/18 0800 Gross per 24 hour Intake 157 ml Output 1225 ml Net -1068 ml MEDICATIONS Current Facility-Administered Medications: acetaminophen 325-650 mg tab(s) (TYLENOL) 325-650 mg ORAL q 6 H PRN enoxaparin 40 mg injection (LOVENOX) 40 mg SUBCUTANEOUS q 24 HR insulin glargine 60 Units pen (long acting) (LANTUS SOLOSTAR, BASAGLAR KWIKPEN) 60 Units SUBCUTANEOUS DAILY (8 AM) insulin lispro 24 Units pen (rapid acting) (HumaLOG KWIKPEN) 24 Units SUBCUTANEOUS w MEALS pill splitter (patient-specific) 1 Each Miscell. (Med.Supl.;Non- Drugs) PRN metoprolol tartrate (short acting) 25 mg tab(s) (LOPRESSOR) 25 mg ORAL q 8 H dextrose 40 % 15 g 15 g ORAL PRN Or glucagon 1 mg injection (GLUCAGEN) 1 mg INTRAMUSCULAR PRN Or dextrose 50% in water 25 mL syringe 12.5 g INTRAVENOUS PRN insulin lispro pen (rapid acting) (HumaLOG KWIKPEN) SUBCUTANEOUS w MEALS insulin glargine 40 Units pen (long acting) (LANTUS SOLOSTAR, BASAGLAR KWIKPEN) 40 Units SUBCUTANEOUS DAILY (8 AM) amiodarone 400 mg tab(s) (PACERONE) 400 mg ORAL TID polyethylene glycol 3350 17 g packet (MIRALAX, GLYCOLAX) 17 g ORAL DAILY senna-docusate 8.6-50 mg 1 tablet (SENNA-S) 1 tablet ORAL BID morphine 2-4 mg injection 2-4 mg INTRAVENOUS q 2 H PRN oxyCODONE IR 5-10 mg tab(s) (ROXICODONE) 5-10 mg ORAL q 3 H PRN insulin regular iv infusion 250 units in NaCl 0.9% 250 mL - AK CARD SURG NOMOGRAM 0-12 Units/hr INTRAVENOUS CONTINUOUS insulin regular human iv bolus 10 Units 10 Units INTRAVENOUS PRN dextrose 50% in water 25 mL syringe 12.5 g INTRAVENOUS PRN pantoprazole DR 40 mg tab(s) (PROTONIX) 40 mg ORAL DAILY (6 AM) potassium chloride iv piggyback 20 mEq in sterile water 100 mL 20 mEq INTRAVENOUS PRN magnesium sulfate in water 2 g in sterile water 50 ml 2 g INTRAVENOUS PRN(NO DISPENSE) albuterol 2.5 mg /3 mL (0.083 %) 2.5 mg (PROVENTIL) 2.5 mg INHALATION q 2 H PRN ondansetron (PF) 4 mg injection (ZOFRAN) 4 mg INTRAVENOUS q 6 H PRN calcium chloride 1 g in D5W 100 mL 1 g INTRAVENOUS PRN(NO DISPENSE) NaCl 0.9% iv infusion 250 mL INTRAVENOUS QID PRN Respiratory/Nursing Documentation: O2 Therapy: Nasal Cannula (03/31/18 1200) Invasive Ventilator Mode: Continuous Positive Airway Pressure;Pressure Support Ventilation (found on CPAP per RN, not notified.) (03/28/182350) Set Ventilator Respiratory Rate (BPM): 12 (03/28/182212) Total Respiratory Rate (BPM): 22 (03/28/182350) Tidal Volume Set (mL): 500 (03/28/182212) Exhaled Tidal Volume (mL): 502 (03/28/182350) Minute Volume (L): 10.8 (03/28/182350) Peak Inspiratory Pressure (cm H2O): 16 (03/28/182350) PEEP/CPAP (cm H2O): 5 (03/28/182350) Lines, Drains, and Airways Line Peripheral Assessment Short Left Forearm 20 Gauge -- days Peripheral 03/31/18 1119 Short Left Antecubital 20 Gauge less than 1 day Drain Chest Tube 03/28/18 1851 Assessment Midline Anterior Pleural 32 Fr Tube #2 2 days PHYSICAL EXAMINATION: Vitals-reviewed and noted above. Lines/Drains in place as noted above. On 2L nc Obese, following commands Thick neck Mild crackles at bases Vest noted RRR Ab distended mildly but BS+, NT No edema No acute rash DATA: All data reviewed, including, but not limited to, data noted below. All diagnostic tests, including labs/specimens and imaging, were personally reviewed by me. MICRO: CXR FINDINGS: 03/31: Recent removal of left thoracostomy tube. ?There is now a tiny left apical pneumothorax. 03/29 : Portable frontal view of the chest shows endotracheal tube and enteric tube have been removed. ? Right internal jugular Stark-Nohelia catheter with tip in the pulmonary outflow tract. ? Mediastinal drain overlying the inferior aspect mediastinum. ? Left-sided chest tube overlying left mid chest. ? Cardiac silhouette remains mildly enlarged. ? Widening of the superior mediastinum. ?Stable. ? Lungs are remarkable for probable atelectasis at the left lung base. ? IMPRESSION: ? Status post extubation. OTHER DIAGNOSTICS/ IMAGING: Impression/Recommendations Critical Care Documentation: The patient has the following organ/system impairment(s): 57 yo WM w/ the following: # CAD w/ NSTEMI I s/p CABG x 4v 03/28/18 # Acute post-op respiratory insufficiency; s/p extubated as expected on 03/28/18 # Suspect atelectasis in s/o splinting d/t pain # Anticipated post-op hypotension- resolved # Post-op anemia # Leukocytosis- post-op # TEOFILO on home CPAP PLAN: - Wean FiO2 to >90% - WBC up but no clinical suggestion of PNA, would monitor for now. - Cont CPAP w/ naps and qhs at 8cm H20 - Pain control improved w/ oxycodone IR q3 hr prn and continue w/ acetaminophen prn - Encourage IS/OOB - Cardiology following: ASA, statin, BB - BG management per endocrine - Stable for transfer from pulmonary standpoint Prognosis: Progressing favorably Code Status: Full Patient/Family Updated: Patient was updated regarding?the?goals of care,?medical plan for the day, it consultant recommendations, medical disposition and current medical condition/prognosis as clinically indicated. All questions and concerns, if any, were answered and addressed at this juncture. Discussed with staff. SIGNATURE: Martha Chester MD [facility] Department of Pulmonary and Critical Care Medicine DATE of SERVICE: March 31, 2018 TIME of SERVICE: 12:37 PM CASE MANAGEM Observed: 03/31/2018 Status: COMPLETED Source: [place] 10:19 AM [facility] REPOSITORY HNO ID: [id number] Author: Janna (Rn) KENYETTA Lind Service: Care Management Author Type: Registered Nurse Type: Care Mgt Progress Note Filed: 03/31/2018 10:20 AM Note Text: CARE MANAGEMENT PROGRESS NOTE SERVICE DATE: 03/31/2018 SERVICE TIME: 10:19 AM LOS: 10 days Needs Prior to Discharge: Home Care Order Plan is for home with family assist and [facility] HC upon disch. SIGNATURE: Janna Lind RN PATIENT NAME: Carlos Buckner DATE: March 31, 2018 TIME: 10:19 AM PAGER/CONTACT #: [phone] PROGRESS Observed: 03/31/2018 Status: COMPLETED Source: [facility] 10:15 AM [facility] REPOSITORY HNO ID: [id number] Author: Mike Rose Service: Cardiovascular Medicine Author Type: Physician Type: Progress Notes Filed: 03/31/2018 4:55 PM Note Text: CARDIOTHORACIC SURGERY POSTOP PROGRESS NOTE SERVICE DATE: 03/31/2018 SERVICE TIME: 10:15 AM Subjective S/P SURGERY: Procedure(s) (LRB): BYPASS GRAFT ARTERY CORONARY ON-PUMP USING VENOUS GRAFT(S) AND ARTERIAL GRAFT(S) THREE VENOUS GRAFTS (N/A) DATE OF SURGERY: 03/28/2018 POSTOP DAY #3 LOS: 10 INTERVAL EVENTS / PERTINENT ROS: Patient seen and examined. Insulin gtt on at 5 units an hour. Chest tubes removed > patient experiencing much less pain. Able to ambulate. Objective Admission Weight: 106.7 kg (235 lb 3.2 oz) BP 116/69 Pulse 84 Temp 36.6 ?C (97.9 ?F) (Temporal Artery) Resp 25 Ht 172.7 cm (5' 8) Wt 114.4 kg (252 lb 3.3 oz) SpO2 95% BMI 38.35 kg/m? Body surface area is 2.34 meters squared. Min/Max/Average Temperature AND Blood Pressure: Temp (24hrs), Av.6 ?C (97.9 ?F), Min:35.2 ?C (95.4 ?F), Max:37.7 ?C (99.9 ?F) Systolic (24hrs), Av , Min:105 , Max:142 Diastolic (24hrs), Av, Min:58, Max:76 Intake/Output Summary (Last 24 hours) at 03/31/18 1015 Last data filed at 03/31/18 0800 Gross per 24 hour Intake 157 ml Output 1427 ml Net -1270 ml TELEMETRY: normal sinus rhythm PHYSICAL EXAM: General Appearance: In chair-appears comfortable Skin: Midsternal incision dry AND intact. and SVG incisions dry AND intact. Head/Eyes: EOM's intact Neck: RIJ in place Lungs: crackles Heart: regular rhythm and pacing wires present Peripheral Vascular/Arteries: dorsalis pedis 2+ and radial 2+ Abdomen: soft, non-tender and bowel sounds present Neurologic/Psychiatric: alert and NFD Extremities: edema: 1+ Lines, Drains, and Airways Line Peripheral Assessment Short Left Forearm 20 Gauge -- days Central Line Double Lumen 03/28/18 1435 Pulmonary Artery Catheter Right Neck Through Introducer 2 days Drain Chest Tube 03/28/18 1851 Assessment Midline Anterior Pleural 32 Fr Tube #2 2 days DATA: Diagnostic tests reviewed for today's visit: Chest X-RAY: Unable to open study in EPIC but read from radiology is: Recent removal of left thoracostomy tube. ?There is now a tiny left apical pneumothorax. Recent Labs 03/31/18 0427 03/30/18 0230 03/29/1861903/28/182204 RBC 2.65* 2.71* 3.07* 3.43* WBC 10.16* 8.42 9.34* 17.86* HB 8.5* 8.5* 9.8* 10.9* HCT 24.6* 25.5* 28.5* 32.2* PLT 119* 84* 107* 114* INR -- -- 1.16 1.30 APTT -- -- -- 25.4 NA 139 139 143 145 K 3.3* 3.7 4.0 4.0 CHLOR 105 108* 115* 116* CO2 25 20* 21 19* BUN 20* 14 11 14 CREAT 0.88 0.85 0.75 0.83 GLUC 96 187* 119* 153* CA 8.5 7.7* 7.2* 6.8* MG -- 1.8 1.6 1.6 ANION 12 15 11 14 Recent Labs 03/29/18 0620 03/28/18 2345 03/28/18220403/28/18202603/28/18 19403/28/18 1913 PH 7.353 7.300* 7.243* 7.308* 7.371 7.396 PCO2 39.3 38.4 45.1 -- -- -- PO2 81.4* 81.7* 80.0* 181.0* 323.0* 326.0* BE -3.8 -7.3 -8.0 -- -- -- HCO3 -- -- -- 20.2* 24.1 24.5 Assessment/Plan NSTEMI with severe 3V CAD s/p CABG x3 -POD#3 -Increase ASA to 162 mg QDAY -Increase Atovastatin 80 mg QDAY -Continue with Metoprolol 25 mg TID -Post thorax vest -Remove chest tubes -Remove central line if able to obtain 2 PIVs; if not will exchange Cordis for quad lumen -Pain control -IS/ ambulation ? Post op afib with RVR -Converted to NSR -DC IV Amiodarone; continue with Amiodarone 400 TID -Continue with metoprolol to 25mg TID. ? Anticipated acute hypoxic pulmonary insufficiency -2/2 pulmonary edema/ atelectasis -Lasix 40 mg PO x 1 Will likely need daily -Encouraged CANDDB, incentive spirometer -Increase activity -Trial off O2 ? Hypokalemia -K+ 3.3 > Replaced -Continue to monitor DM2 -Remains on insulin gtt/ Lantus/ Humalog -Endocrinology following ? Anticipation acute blood loss anemia -Stable -No transfusion indicated ? Thrombocytopenia -Reactive -Resolving ? DVT ppx -SCD/ Lovenox D/W Dr. Rose-will transfer to 4200, but needs to be off insulin gtt-await Dr. Cadena recommendations. SIGNATURE: Rubén Traore PA-C PATIENT NAME: Carlos Buckner DATE: March 31, 2018 TIME: 10:15 AM PAGER/CONTACT #: [phone] SNX [phone] Patient seen with care team this AM. Labs, data, course, and careplan reviewed. Rhthym and cxr both improved. P-as ordered. NUTRITION Observed: 03/31/2018 Status: COMPLETED Source: [place] 8:48 AM [facility] OTHER CAMPUS REPOSITORY O ID: [id number] Author: Patt Stephenson) AL Seymour Service: Nutrition Therapy Author Type: Registered Dietitian Type: Nutrition Filed: 03/31/2018 2:15 PM Note Text: NUTRITION THERAPY PROGRESS NOTE SERVICE DATE: 03/31/2018 SERVICE TIME: 8:49 AM RECOMMENDED DIAGNOSIS: NO MALNUTRITION IDENTIFIED per Registered Dietitian on 03/29/18 NUTRITION CARE PLAN Intervention: Continue diet as tolerated to goal Heart Healthy and carbohydrate controlled Discontinue Boost Glucose Control TID to provide 750 kcal and 42 gm protein Added Ensure High Protein TID to provide 480 kcal and 48 gm protein Coordination of Care: Nursing Monitor and Evaluation: Goal: Meet >75% of estimated needs Monitor fluid/electrolyte balance Monitor labs, I/Os, vital signs, weight Discharge Nutrition Recommendations: Diet: Heart Healthy Nutrition Supplements: Supplement of choice TID Chart reviewed for follow-up Per HPI: 57 year old male who presented to [place] two days ago from 03/21 with chest pain, found to have NSTEMI. he had cardiac cath done with findings of three vessels disease and was transferred to [facility] for CTS evaluation for CABG. Upon admission he was asymptomatic. ? 03/29/18: CTS surgery consulted. Endocrinology consulted for DM. Underwent CABG on 03/28. Extubated and remains NPO at present. Interval History: Patient with refusal to ambulate and stand due to pain on 03/29. Decreased po intake but tolerating Boost per RN. Weaning O2 on CPAP at night. Endocrinology managing glucose. ACTIVE PROBLEM LIST Hyperlipemia Teofilo (Obstructive Sleep Apnea) Dm (Diabetes Mellitus), Type 2, Uncontrolled ([facility]) Erectile Dysfunction Associated With Type 2 Diabetes Mellitus ([facility]) Hypertriglyceridemia Htn (Hypertension) Chest Pain Cad (Coronary Artery Disease) Acs (Acute Coronary Syndrome) ([facility]) Nstemi (Non-St Elevated Myocardial Infarction) ([facility]) PAST MEDICAL HISTORY Diagnosis Date - CAD (coronary artery disease) - HLD (hyperlipidemia) - HTN (hypertension) 06/10/2017 - Obstructive sleep apnea - Type II or unspecified type diabetes mellitus without mention of complication, not stated as uncontrolled PAST SURGICAL HISTORY Procedure Laterality Date - COLONOSCOP W/ OR W/O [facility] SPEC 01/17/15 Colonoscopy - KIDNEY SURGERY HX - LITHOTRIPSY PROC UNILATERAL 2006 left side done in [place] - PAST SURGICAL HISTORY OF dog bite age 5 - PAST SURGICAL HISTORY OF chainsaw injury Social History Marital status: Spouse name: ramana Years of education: Number of children: 2 Occupational History 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 13 and 15 in 2011 No TV in house Nutritional Intake Prior to Admission: >75% estimated energy needs over the past >1 month(s), reports good po intake prior to admission ? 03/29/18: >75% estimated energy needs over the past 8 day(s), prior to OR intake 75-100% meals Nutritional Intake: <50% estimated energy need over the past 2 day(s) with decreased appetite and dislike of supplements. Agreeable to trial Ensure High protein (no vanilla). Current Diet Order DIET HEART HEALTHY Order Specific Question: Heart Healthy Answer: 2 GM SODIUM (<200 MG CHOL / LOW SAT FAT) Order Specific Question: Carbohydrate Control Answer: 3-5 CARBS/MEAL Supplement 1: BOOST GLUCOSE CONTROL VANILLA Supplement 1 Frequency: 1. BREAKFAST; 5. DINNER Supplement 2: BOOST GLUCOSE CONTROL CHOCOLATE Supplement 2 Frequency: 3. LUNCH Lines and Drains: Central Line Double Lumen 03/28/18 1435 Pulmonary Artery Catheter Right Neck Through Introducer (Active) Peripheral Assessment Short Left Forearm 20 Gauge (Active) Chest Tube 03/28/18 1851 Assessment Midline Anterior Pleural 32 Fr Tube #2 (Active) Height: 172.7 cm (5' 8) Admission Weight: 106.7 kg (235 lb 3.2 oz) Current Weight: 114.4 kg (252 lb 3.3 oz) Body mass index is 38.35 kg/m?. class 2 obesity Last 12 Encounter Wt Readings: Date: Wt: 03/21/2018 114.4 kg (252 lb 3.3 oz) 06/10/2017 110.2 kg (243 lb) 01/20/2017 108 kg (238 lb) 03/20/2016 110.7 kg (244 lb) 03/07/2016 111.3 kg (245 lb 6.4 oz) 04/12/2015 114.8 kg (253 lb) 03/12/2015 113.4 kg (250 lb) 01/11/2015 112.9 kg (248 lb 14.4 oz) 01/11/2015 112.9 kg (249 lb) 01/11/2015 112.5 kg (248 lb) 12/10/2014 114.3 kg (252 lb) 09/08/2014 109.8 kg (242 lb) Recent Labs 03/31/18 0427 03/30/18 0230 GLUC 96 187* BUN 20* 14 CREAT 0.88 0.85 NA 139 139 K 3.3* 3.7 CHLOR 105 108* CO2 25 20* HB 8.5* 8.5* HCT 24.6* 25.5* WBC 10.16* 8.42 MG -- 1.8 ALLERGIES Allergen Reactions - Oysters Rash, Itching - Shellfish Containin* Rash Current Facility-Administered Medications: furosemide 40 mg tab(s) (LASIX) 40 mg ORAL ONCE acetaminophen 325-650 mg tab(s) (TYLENOL) 325-650 mg ORAL q 6 H PRN amiodarone 360 mg in D5W 200 mL (NEXTERONE) 0.5 mg/min INTRAVENOUS CONTINUOUS pill splitter (patient-specific) 1 Each Miscell. (Med.Supl.;Non- Drugs) PRN metoprolol tartrate (short acting) 25 mg tab(s) (LOPRESSOR) 25 mg ORAL q 8 H dextrose 40 % 15 g 15 g ORAL PRN Or glucagon 1 mg injection (GLUCAGEN) 1 mg INTRAMUSCULAR PRN Or dextrose 50% in water 25 mL syringe 12.5 g INTRAVENOUS PRN insulin lispro pen (rapid acting) (HumaLOG KWIKPEN) SUBCUTANEOUS w MEALS insulin glargine 40 Units pen (long acting) (LANTUS SOLOSTAR, BASAGLAR KWIKPEN) 40 Units SUBCUTANEOUS DAILY (8 AM) insulin lispro 16 Units pen (rapid acting) (HumaLOG KWIKPEN) 16 Units SUBCUTANEOUS w MEALS amiodarone 400 mg tab(s) (PACERONE) 400 mg ORAL TID polyethylene glycol 3350 17 g packet (MIRALAX, GLYCOLAX) 17 g ORAL DAILY senna-docusate 8.6-50 mg 1 tablet (SENNA-S) 1 tablet ORAL BID morphine 2-4 mg injection 2-4 mg INTRAVENOUS q 2 H PRN oxyCODONE IR 5-10 mg tab(s) (ROXICODONE) 5-10 mg ORAL q 3 H PRN insulin regular iv infusion 250 units in NaCl 0.9% 250 mL - [place] CARD SURG NOMOGRAM 0-12 Units/hr INTRAVENOUS CONTINUOUS insulin regular human iv bolus 10 Units 10 Units INTRAVENOUS PRN dextrose 50% in water 25 mL syringe 12.5 g INTRAVENOUS PRN pantoprazole DR 40 mg tab(s) (PROTONIX) 40 mg ORAL DAILY (6 AM) aspirin 81 mg chewable tab(s) 81 mg ORAL DAILY potassium chloride iv piggyback 20 mEq in sterile water 100 mL 20 mEq INTRAVENOUS PRN magnesium sulfate in water 2 g in sterile water 50 ml 2 g INTRAVENOUS PRN(NO DISPENSE) albuterol 2.5 mg /3 mL (0.083 %) 2.5 mg (PROVENTIL) 2.5 mg INHALATION q 2 H PRN niCARdipine 40 mg in NaCl 0.9% 200 mL infusion (CARDENE) 5- 10 mg/hr INTRAVENOUS CONTINUOUS EPINEPHrine 4 mg in NaCl 0.9% 250 mL 2 mcg/min INTRAVENOUS PRN(NO DISPENSE) atorvastatin 40 mg tab(s) (LIPITOR) 40 mg ORAL AT BEDTIME ondansetron (PF) 4 mg injection (ZOFRAN) 4 mg INTRAVENOUS q 6 H PRN calcium chloride 1 g in D5W 100 mL 1 g INTRAVENOUS PRN(NO DISPENSE) NaCl 0.9% iv infusion 250 mL INTRAVENOUS QID PRN Date 03/30/18699 - 03/31/18 0659 03/31/18 07 - 04/01/18 0659 Shift 8432-9232 2966-0303 4938-1311 24 Hour Total 4341-8511 5299-4020 3503-4046 24 Hour Total I N T A K E PO 120 120 PO 120 120 IV 184 184 37 37 Amiodarone 184 184 31.4 31.4 Regular Insulin IV 5.6 5.6 Shift Total 184 184 157 157 O U T P U T Urine 394 420 9467 Void (ml) 725 725 Tube Output ([REMOVED] Indwelling Urinary Catheter 03/28/18 1445 Assessment Temperature Monitoring 16 Fr 03/30/18 1451) 821 821 Chest Tube 85 110 195 Chest Tube Output ([REMOVED] Chest Tube 03/28/18 1851 Assessment Midline Anterior Mediastinal 32 Fr Tube #1 03/30/18 2200) 85 110 195 Shift Total 906 421 684 0664 Weight (kg) 114.2 114.2 114.4 114.4 114.4 114.4 114.4 114.4 Surgical Incision 03/30/18 1900 Chest - Midsternal (Active) Dressing Status None: Open to Air 03/31/2018 8:00 AM Incision Closures Topical Skin Adhesive 03/31/2018 8:00 AM Drainage Amount None 03/31/2018 8:00 AM Edges Intact 03/31/2018 8:00 AM Hematoma No 03/31/2018 8:00 AM Number of days: 0 Surgical Incision 03/30/18 Leg - Left (Active) Dressing Status None: Open to Air 03/31/2018 8:00 AM Incision Closures Topical Skin Adhesive 03/31/2018 8:00 AM Drainage Description None 03/31/2018 8:00 AM Drainage Amount None 03/31/2018 8:00 AM Edges Intact 03/31/2018 8:00 AM Hematoma No 03/31/2018 8:00 AM Number of days: 1 [facility] in the past year:No results for input(s): CHROMIUM, COPPER, MANGANESE, SELENIUM, VITAMINA, VITB1, VITB2, VITB6, B12, METHYLMAL, VITD25, VITAMINE, VITAK, ZINC, TIBC, FE, PHONG in the last 8784 hours. MNT Billing Type: Re-assess/15 min 3 units SIGNATURE: Patt Seymour RD, RONNY PATIENT NAME: Carlos Buckner DATE: March 31, 2018 TIME: 8:49 AM PAGER: [phone] CONSULT PROG Observed: 03/31/2018 Status: COMPLETED Source: [facility] 8:30 AM CLINIC OTHER CAMPUS REPOSITORY O ID: [id number] Author: Ifeoma Cadena Service: Endocrinology Author Type: Physician Type: Consult Progress Note Filed: 03/31/2018 5:01 PM Note Text: ENDOCRINOLOGY CONSULT PROGRESS NOTE SERVICE DATE: 05/31/2017 SERVICE TIME: 8:30am Subjective INTERVAL HPI: pt seen for diabetes mellitus;was on Levemir 30 units qam and prandial humalog 10 units qac tid plus correction prior to surgery; now on iv insulin gtt at 3-5 units/hour plus sq insulin levemir 40 units qam and humalog 12 units qac tid; eating better; no nausea; s/p CABG 03/28 DIET HEART HEALTHY Recent Labs 03/31/18 1153 03/31/18 1001 03/31/18 0753 03/31/18 0427 03/30/18 0230 03/29/18 0620 GLUC -- -- -- -- 96 -- 187* -- 119* GLUCOSEMETER 119* 171* 126* < > -- < > -- < > -- < > = values in this interval not displayed. Current hospital medications: acetaminophen 325-650 mg tab(s) (TYLENOL) 325-650 mg ORAL q 6 H PRN [START ON 04/01/2018] aspirin 162 mg chewable tab(s) 162 mg ORAL DAILY enoxaparin 40 mg injection (LOVENOX) 40 mg SUBCUTANEOUS q 24 HR atorvastatin 80 mg tab(s) (LIPITOR) 80 mg ORAL AT BEDTIME insulin glargine 60 Units pen (long acting) (LANTUS SOLOSTAR, BASAGLAR KWIKPEN) 60 Units SUBCUTANEOUS DAILY (8 AM) insulin lispro 24 Units pen (rapid acting) (HumaLOG KWIKPEN) 24 Units SUBCUTANEOUS w MEALS pill splitter (patient-specific) 1 Each Miscell. (Med.Supl.;Non- Drugs) PRN metoprolol tartrate (short acting) 25 mg tab(s) (LOPRESSOR) 25 mg ORAL q 8 H dextrose 40 % 15 g 15 g ORAL PRN glucagon 1 mg injection (GLUCAGEN) 1 mg INTRAMUSCULAR PRN dextrose 50% in water 25 mL syringe 12.5 g INTRAVENOUS PRN insulin lispro pen (rapid acting) (HumaLOG KWIKPEN) SUBCUTANEOUS w MEALS insulin glargine 40 Units pen (long acting) (LANTUS SOLOSTAR, BASAGLAR KWIKPEN) 40 Units SUBCUTANEOUS DAILY (8 AM) amiodarone 400 mg tab(s) (PACERONE) 400 mg ORAL TID polyethylene glycol 3350 17 g packet (MIRALAX, GLYCOLAX) 17 g ORAL DAILY senna-docusate 8.6-50 mg 1 tablet (SENNA-S) 1 tablet ORAL BID morphine 2-4 mg injection 2-4 mg INTRAVENOUS q 2 H PRN oxyCODONE IR 5-10 mg tab(s) (ROXICODONE) 5-10 mg ORAL q 3 H PRN insulin regular iv infusion 250 units in NaCl 0.9% 250 mL - AK CARD SURG NOMOGRAM 0-12 Units/hr INTRAVENOUS CONTINUOUS insulin regular human iv bolus 10 Units 10 Units INTRAVENOUS PRN dextrose 50% in water 25 mL syringe 12.5 g INTRAVENOUS PRN pantoprazole DR 40 mg tab(s) (PROTONIX) 40 mg ORAL DAILY (6 AM) potassium chloride iv piggyback 20 mEq in sterile water 100 mL 20 mEq INTRAVENOUS PRN magnesium sulfate in water 2 g in sterile water 50 ml 2 g INTRAVENOUS PRN(NO DISPENSE) albuterol 2.5 mg /3 mL (0.083 %) 2.5 mg (PROVENTIL) 2.5 mg INHALATION q 2 H PRN ondansetron (PF) 4 mg injection (ZOFRAN) 4 mg INTRAVENOUS q 6 H PRN calcium chloride 1 g in D5W 100 mL 1 g INTRAVENOUS PRN(NO DISPENSE) NaCl 0.9% iv infusion 250 mL INTRAVENOUS QID PRN Objective PHYSICAL EXAM: BP 114/66 Pulse 91 Temp (Src) 98.1 (Temporal Artery) Resp 9 Ht 5' 8 (1.73m) Wt 252 lb 3.3 oz (114.4kg) SpO2 94% BMI 38.36 kg/(m2). General: Well appearing, alert, well-hydrated, well nourished;Obese Skin: skin color, texture, turgor normal, no rashes or lesions. Head: normocephalic, no masses, lesions, tenderness or abnormalities. Eyes: SUSAN,EOMI Oropharynx: moist Neck: Supple, no adenopathy; thyroid symmetric, normal size, no bruits Chest: midsternal incision c/d/i Heart: RRR without murmur, gallop, or rubs. No ectopy Abdomen: soft, non-tender, positive bowel sounds Extremities: no edema, no calluses or ulcers present. Peripheral Pulses: posterior tibial and doralis pedis pulses 2+ and symmetrical ? DATA: Diagnostic tests reviewed for today's visit: Most recent labs and imaging results. Assessment/Plan DM (diabetes mellitus), type 2, uncontrolled; HbA1c 8.2; on oral antihyperglycemics (Metformin/Amaryl/Jardiance) at home; now with complications; ? CAD (coronary artery disease) severe. ?ACS (acute coronary syndrome) s/p revascularization on 03/28 ? Hyperlipemia POA: Yes Assessment AND Plan: per 1 service ? TEOFILO (obstructive sleep apnea) POA: Yes Assessment AND Plan: per 1 service. ? Recommendations: discontinued oral antihyperglycemics; now on prog insulin Levemir 40 units daily AM and humalog 12 units qac tid plus correction prior to surgery; plus iv insulin gtt 3-5 unit/hour will transition to sq insulin levemir 40,0,0,40 units qhs, increase Humalog 24 units qac plus correction; d/c iv insulin gtt SIGNATURE: Ifeoma Cadena MD PATIENT NAME: Carlos Buckner DATE: March 31, 2018 TIME: 1:35 PM PAGER: [phone] CHEST 1 VIEW Observed: 03/31/2018 Status: F Source: [facility] 5:29 AM HEALTH SYSTEM REPOSITORY Performed at [facility] APPROVED BY: Bharathi Pereira MD EXAM TITLE: CHEST 1 VIEW DATE: 03/31/2018 05:27 INDICATION: Acute ischemic heart disease. Postoperative COMPARISON: 03/30/2018 FINDINGS: Since the previous exam, the left thoracostomy tube has been removed. There is a tiny left apical pneumothorax. Small left pleural effusion also persists. Right lung is relatively clear. H eart is not significantly enlarged and there are sternotomy wires. Right internal jugular introducer sheath is stable. IMPRESSION: Recent removal of left thoracostomy tube. There is now a tiny left apical pneumothorax. HEMOGRAM Collected: 03/31/2018 Status: F Source: [facility] 4:27 AM HEALTH SYSTEM REPOSITORY TYPE CODE TESTS RESULT OUT OF REFERENCE UNITS RANGE LAB WBC(LOINC) 4.23-9.07 thou/cmm High WBC 10.16 LAB RBC(LOINC) 4.63-6.08 mil/cmm Low RBC 2.65 LAB HGB(LOINC) 13.7-17.5 g/dL Low Hgb 8.5 LAB HCT(LOINC) 40.1-51.0 % Low Hct 24.6 LAB MCV(LOINC) 83.2-95.6 fl MCV 92.8 LAB MCH(LOINC) 25.7-32.2 pg MCH 32.1 LAB MCHC(LOINC) 32.3-36.5 % MCHC 34.6 LAB RDW(LOINC) 11.6-14.4 % RDW 12.7 LAB RDWSD(LOINC 36.1-45.8 fl ) RDW SD 43.0 LAB PLT(LOINC) 141-365 thou/cmm Low Platelet 119 LAB MPV(LOINC) 8.7-12.0 fl MPV 10.8 Performed By: #### CBC1 #### [facility] [address] [id number] BASIC PANEL Collected: 03/31/2018 Status: F Source: [facility] 4:27 AM HEALTH SYSTEM REPOSITORY TYPE CODE TESTS RESULT OUT OF REFERENCE UNITS RANGE LAB NA(LOINC) 136-145 mEq/L Sodium Blood 139 LAB K(LOINC) 3.5-5.1 mEq/L Low Potassium Blood 3.3 LAB CL(LOINC) 98-107 mEq/L Chloride Blood 105 LAB CO2(LOINC) 21-32 mEq/L CO2 Blood 25 LAB GLU(LOINC) 70-99 mg/dL Glucose Blood 96 LAB BUN(LOINC) 7-18 mg/dL BUN High Blood 20 LAB CREA(LOINC 0.67-1.17 mg/dL ) Creatinine Blood 0.88 LAB CA(LOINC) 8.5-10.1 mg/dL Calcium Blood 8.5 LAB ANGAP(LOIN 8-16 C) Anion Gap 12 Performed By: #### P8 #### [address] [address] PROGRESS Observed: 03/30/2018 Status: COMPLETED Source: [facility] 1:00 PM CLINIC OTHER CAMPUS REPOSITORY HNO ID: [id number] Author: Martha Chester Service: Critical Care Author Type: Physician Type: Progress Notes Filed: 03/30/2018 4:51 PM Note Text: MICU - PROGRESS NOTE SERVICE DATE: 03/30/2018 Admission Date: 03/21/2018 AGE: [age] year old LOS: 9 days REASON FOR ICU ADMISSION: s/p CABG, anticipated post-op respiratory insufficiency Subjective HPI/Interval history: Still w/ sig pain and splinting because of it. Trying IS-[id number] now PAST MEDICAL HISTORY Diagnosis Date - CAD (coronary artery disease) - HLD (hyperlipidemia) - HTN (hypertension) 06/10/2017 - Obstructive sleep apnea - Type II or unspecified type diabetes mellitus without mention of complication, not stated as uncontrolled Objective VITAL SIGNS (last 24hrs min/max): Temp Av.6 ?C (99.7 ?F) Min: 36.2 ?C (97.2 ?F) Max: 38.5 ?C (101.3 ?F) Pulse Av Min: 77 Max: 117 Arterial BP 1 Min: 84/57 Max: 152/82 Cuff BP Min: 92/62 Max: 117/64 Pain Score: 10/10 Vital signs reviewed. BP 131/75 Pulse 99 Temp (Src) 98.4 (Weaver Thermistor) Resp 34 Ht 5' 8 (1.73m) Wt 251 lb 12.3 oz (114.2kg) SpO2 100% BMI 38.29 kg/(m2). Temp (24hrs), Av.3 ?C (99.1 ?F), Min:36.7 ?C (98.1 ?F), Max:37.7 ?C (99.9 ?F) NET FLUID BALANCE Intake/Output Summary (Last 24 hours) at 03/30/18 1612 Last data filed at 03/30/18 1600 Gross per 24 hour Intake 2605 ml Output 2146 ml Net 459 ml MEDICATIONS Current Facility-Administered Medications: amiodarone 360 mg in D5W 200 mL (NEXTERONE) 0.5 mg/min INTRAVENOUS CONTINUOUS pill splitter (patient-specific) 1 Each Miscell. (Med.Supl.;Non- Drugs) PRN metoprolol tartrate (short acting) 25 mg tab(s) (LOPRESSOR) 25 mg ORAL q 8 H dextrose 40 % 15 g 15 g ORAL PRN Or glucagon 1 mg injection (GLUCAGEN) 1 mg INTRAMUSCULAR PRN Or dextrose 50% in water 25 mL syringe 12.5 g INTRAVENOUS PRN insulin lispro pen (rapid acting) (HumaLOG KWIKPEN) SUBCUTANEOUS w MEALS insulin glargine 40 Units pen (long acting) (LANTUS SOLOSTAR, BASAGLAR KWIKPEN) 40 Units SUBCUTANEOUS DAILY (8 AM) insulin lispro 16 Units pen (rapid acting) (HumaLOG KWIKPEN) 16 Units SUBCUTANEOUS w MEALS amiodarone 400 mg tab(s) (PACERONE) 400 mg ORAL TID polyethylene glycol 3350 17 g packet (MIRALAX, GLYCOLAX) 17 g ORAL DAILY senna-docusate 8.6-50 mg 1 tablet (SENNA-S) 1 tablet ORAL BID morphine 2-4 mg injection 2-4 mg INTRAVENOUS q 2 H PRN oxyCODONE IR 5-10 mg tab(s) (ROXICODONE) 5-10 mg ORAL q 3 H PRN insulin regular iv infusion 250 units in NaCl 0.9% 250 mL - AK CARD SURG NOMOGRAM 0-12 Units/hr INTRAVENOUS CONTINUOUS insulin regular human iv bolus 10 Units 10 Units INTRAVENOUS PRN dextrose 50% in water 25 mL syringe 12.5 g INTRAVENOUS PRN pantoprazole DR 40 mg tab(s) (PROTONIX) 40 mg ORAL DAILY (6 AM) aspirin 81 mg chewable tab(s) 81 mg ORAL DAILY potassium chloride iv piggyback 20 mEq in sterile water 100 mL 20 mEq INTRAVENOUS PRN magnesium sulfate in water 2 g in sterile water 50 ml 2 g INTRAVENOUS PRN(NO DISPENSE) acetaminophen 650 mg tab(s) (TYLENOL) 650 mg ORAL q 6 H PRN albuterol 2.5 mg /3 mL (0.083 %) 2.5 mg (PROVENTIL) 2.5 mg INHALATION q 2 H PRN niCARdipine 40 mg in NaCl 0.9% 200 mL infusion (CARDENE) 5- 10 mg/hr INTRAVENOUS CONTINUOUS EPINEPHrine 4 mg in NaCl 0.9% 250 mL 2 mcg/min INTRAVENOUS PRN(NO DISPENSE) atorvastatin 40 mg tab(s) (LIPITOR) 40 mg ORAL AT BEDTIME ondansetron (PF) 4 mg injection (ZOFRAN) 4 mg INTRAVENOUS q 6 H PRN calcium chloride 1 g in D5W 100 mL 1 g INTRAVENOUS PRN(NO DISPENSE) NaCl 0.9% iv infusion 250 mL INTRAVENOUS QID PRN Respiratory/Nursing Documentation: O2 Therapy: Hi-Flow (03/30/18 0700) Invasive Ventilator Mode: Continuous Positive Airway Pressure;Pressure Support Ventilation (found on CPAP per RN, not notified.) (03/28/182350) Set Ventilator Respiratory Rate (BPM): 12 (03/28/182212) Total Respiratory Rate (BPM): 22 (03/28/182350) Tidal Volume Set (mL): 500 (03/28/182212) Exhaled Tidal Volume (mL): 502 (03/28/182350) Minute Volume (L): 10.8 (03/28/182350) Peak Inspiratory Pressure (cm H2O): 16 (03/28/182350) PEEP/CPAP (cm H2O): 5 (03/28/182350) Lines, Drains, and Airways Line Peripheral Assessment Short Left Forearm 20 Gauge -- days Central Line Double Lumen 03/28/18 1435 Pulmonary Artery Catheter Right Neck Through Introducer 2 days Drain Chest Tube 03/28/18 1851 Assessment Midline Anterior Mediastinal 32 Fr Tube #1 1 day Chest Tube 03/28/18 1851 Assessment Midline Anterior Pleural 32 Fr Tube #2 1 day PHYSICAL EXAMINATION: Vitals-reviewed and noted above. Lines/Drains in place as noted above. On 6L nc Obese, following commands Thick neck Lungs decreased at bases Vest noted RRR Chest tubes w/ serosanguinous drainage A line in place Ab distended mildly but BS+, NT Trace edema No acute rash DATA: All data reviewed, including, but not limited to, data noted below. All diagnostic tests, including labs/specimens and imaging, were personally reviewed by me. MICRO: CXR FINDINGS: 03/29 : Portable frontal view of the chest shows endotracheal tube and enteric tube have been removed. ? Right internal jugular Stark-Nohelia catheter with tip in the pulmonary outflow tract. ? Mediastinal drain overlying the inferior aspect mediastinum. ? Left-sided chest tube overlying left mid chest. ? Cardiac silhouette remains mildly enlarged. ? Widening of the superior mediastinum. ?Stable. ? Lungs are remarkable for probable atelectasis at the left lung base. ? IMPRESSION: ? Status post extubation. OTHER DIAGNOSTICS/ IMAGING: Impression/Recommendations Critical Care Documentation: The patient has the following organ/system impairment(s): # CAD w/ NSTEMI I s/p CABG x 4v 03/28/18 # Acute post-op respiratory insufficiency; s/p extubated as expected on 03/28/18 # Suspect atelectasis in s/o splinting d/t pain # Anticipated post-op hypotension- resolved # Post-op anemia # Leukocytosis- post-op # TEOFILO on home CPAP PLAN: - Wean FiO2 to >90% - Cont CPAP w/ naps and qhs at 8cm H20 - Better pain control; will change percocet to oxycodone IR q3 hr prn and continue w/ acetaminophen prn - Chest tube management per thoracics - Encourage IS - Cardiology following: ASA, statin, BB once BP allows - BG management per endocrine Prognosis: Progressing favorably Code Status: Full Patient/Family Updated: Patient was updated regarding?the?goals of care,?medical plan for the day, it consultant recommendations, medical disposition and current medical condition/prognosis as clinically indicated. All questions and concerns, if any, were answered and addressed at this juncture. Discussed with staff. SIGNATURE: Martha Chester MD [facility] DATE of SERVICE: March 30, 2018 TIME of SERVICE: 11:23 AM PROGRESS Observed: 03/30/2018 Status: COMPLETED Source: [facility] 11:54 AM CLINIC OTHER CAMPUS REPOSITORY O ID: [id number] Author: Mike Rose Service: Cardiovascular Medicine Author Type: Physician Type: Progress Notes Filed: 03/30/2018 4:30 PM Note Text: CARDIOTHORACIC SURGERY POSTOP PROGRESS NOTE SERVICE DATE: 03/30/2018 SERVICE TIME: 11:57 AM Subjective S/P SURGERY: Procedure(s) (LRB): BYPASS GRAFT ARTERY CORONARY ON-PUMP USING VENOUS GRAFT(S) AND ARTERIAL GRAFT(S) THREE VENOUS GRAFTS (N/A) DATE OF SURGERY: 03/28/2018 POSTOP DAY #2 LOS: 9 INTERVAL EVENTS / PERTINENT ROS: c/o pain especially on left side of chest with inspiration. Denies SOB or N/V. Does not want to ambulate due to pain. Objective Admission Weight: 106.7 kg (235 lb 3.2 oz) BP 92/62 Pulse 94 Temp 37.7 ?C (99.9 ?F) (Weaver Thermistor) Resp 28 Ht 172.7 cm (5' 8) Wt 114.2 kg (251 lb 12.3 oz) SpO2 96% BMI 38.28 kg/m? Body surface area is 2.34 meters squared. Min/Max/Average Temperature AND Blood Pressure: Temp (24hrs), Av.4 ?C (99.3 ?F), Min:36.7 ?C (98.1 ?F), Max:37.7 ?C (99.9 ?F) Intake/Output Summary (Last 24 hours) at 03/30/18 1154 Last data filed at 03/30/18 1100 Gross per 24 hour Intake 3493 ml Output 2030 ml Net 1463 ml Current Facility-Administered Medications: - [] amiodarone 360 mg in D5W 200 mL (NEXTERONE) FOLLOWED BY amiodarone 360 mg in D5W 200 mL (NEXTERONE) - pill splitter (patient-specific) - insulin lispro 12 Units pen (rapid acting) (HumaLOG KWIKPEN) - oxyCODONE ER 10 mg tab(s) (OxyCONTIN) - metoprolol tartrate (short acting) 25 mg tab(s) (LOPRESSOR) - dextrose 40 % 15 g OR glucagon 1 mg injection (GLUCAGEN) OR dextrose 50% in water 25 mL syringe - insulin lispro pen (rapid acting) (HumaLOG KWIKPEN) - insulin glargine 40 Units pen (long acting) (LANTUS SOLOSTAR, BASAGLAR KWIKPEN) - pantoprazole DR 40 mg tab(s) (PROTONIX) - aspirin 81 mg chewable tab(s) - potassium chloride iv piggyback 20 mEq in sterile water 100 mL - magnesium sulfate in water 2 g in sterile water 50 ml - acetaminophen 650 mg tab(s) (TYLENOL) - NaCl 0.9% iv infusion - albuterol 2.5 mg /3 mL (0.083 %) 2.5 mg (PROVENTIL) - niCARdipine 40 mg in NaCl 0.9% 200 mL infusion (CARDENE) - EPINEPHrine 4 mg in NaCl 0.9% 250 mL - PHENYLephrine iv infusion 10 mg in NaCl 0.9% 250 mL (UMBERTO-SYNEPHRINE) - atorvastatin 40 mg tab(s) (LIPITOR) - ondansetron (PF) 4 mg injection (ZOFRAN) - calcium chloride 1 g in D5W 100 mL - morphine 2-4 mg injection - NaCl 0.9% iv infusion TELEMETRY: normal sinus rhythm PHYSICAL EXAM: General Appearance: obese and diaphorectic, sitting up in chair Skin: Midsternal incision dry AND intact., SVG incisions dry AND intact., warm and moist Lungs: clear, respiratory effort: normal and shallow breathing Heart: S1, S2 normal, pacing wires present and irregular Abdomen: soft, non-tender and bowel sounds present Genitourinary: Weaver intact, urine color is clear yellow Extremities: edema: 2+, non-pitting chest tubes intact to -20cm suction with serosanguinous output Lines, Drains, and Airways Line Peripheral Assessment Short Left Forearm 20 Gauge -- days Arterial Line 03/28/18 1420 Arterial Line Left Radial 1 day Central Line Double Lumen 03/28/18 1435 Pulmonary Artery Catheter Right Neck Through Introducer 1 day Drain Chest Tube 03/28/18 1851 Assessment Midline Anterior Mediastinal 32 Fr Tube #1 1 day Chest Tube 03/28/18 1851 Assessment Midline Anterior Pleural 32 Fr Tube #2 1 day Indwelling Urinary Catheter 03/28/18 1445 Assessment Temperature Monitoring 16 Fr 1 day DATA: Diagnostic tests reviewed for today's visit: Recent Labs 03/30/18 0230 03/29/18 0603/28/18220403/28/18 0243 RBC 2.71* 3.07* 3.43* -- 4.13* WBC 8.42 9.34* 17.86* -- 4.52 HB 8.5* 9.8* 10.9* -- 13.0* HCT 25.5* 28.5* 32.2* < > 37.9* PLT 84* 107* 114* -- 174 INR -- 1.16 1.30 -- 1.03 APTT -- -- 25.4 -- -- NA 139 143 145 < > 137 K 3.7 4.0 4.0 < > 3.8 CHLOR 108* 115* 116* -- 104 CO2 20* 21 19* -- 26 BUN 14 11 14 -- 17 CREAT 0.85 0.75 0.83 -- 0.84 GLUC 187* 119* 153* -- 198* CA 7.7* 7.2* 6.8* -- 8.5 MG 1.8 1.6 1.6 -- -- ANION 15 11 14 -- 11 < > = values in this interval not displayed. Recent Labs 03/29/18 0620 03/28/18 2345 03/28/18220403/28/18202603/28/18 1946 03/28/18 1913 PH 7.353 7.300* 7.243* 7.308* 7.371 7.396 PCO2 39.3 38.4 45.1 -- -- -- PO2 81.4* 81.7* 80.0* 181.0* 323.0* 326.0* BE -3.8 -7.3 -8.0 -- -- -- HCO3 -- -- -- 20.2* 24.1 24.5 Assessment/Plan NSTEMI with severe 3V CAD s/p CABG x3 -POD#2 -c/w ASA, statin, and BB -DC chest tubes when output is less than 20ml/hr for 3 consecutive hours -Post thorax vest -dc weaver -dc edelmira once O2 weaned down to 4L -Change percocet to Oxy IR 5-10mg q3hr PRN Post op afib with RVR -Remains in afib -c/w IV Amio and start PO amio to overlap -Increase metoprolol to 25mg q8hr. Anticipated acute hypoxic pulmonary insufficiency -Wean O2 -Encouraged CANDDB, incentive spirometer -Increase activity DM2 -Appreciate endocrinology management Anticipation acute blood loss anemia -Asymptomatic, no transfusion indicated Thrombocytopenia -Likely reactive. Monitor trends DVT ppx -SCDS Tests/Labs Ordered: 1. Chest X-ray 2. BMP 3. CBC SIGNATURE: Karen Ball APRN.[employer] PATIENT NAME: Carlos Buckner DATE: March 30, 2018 TIME: 11:54 AM PAGER/CONTACT #: [phone] Patient seen this AM in CVICU with care team. Labs, data, course, and careplan reviewed. Needs to get MOVING P-as ordered. CONSULT PROG Observed: 03/30/2018 Status: COMPLETED Source: [facility] 11:47 AM CLINIC OTHER CAMPUS REPOSITORY O ID: [id number] Author: Ifeoma Cadena Service: Endocrinology Author Type: Physician Type: Consult Progress Note Filed: 03/30/2018 12:18 PM Note Text: ENDOCRINOLOGY CONSULT PROGRESS NOTE SERVICE DATE: 03/30/2018 SERVICE TIME: 11:47 AM Subjective INTERVAL HPI: pt seen for diabetes mellitus;was on Levemir 30 units qam and prandial humalog 10 units qac tid plus correction prior to surgery; was on iv insulin gtt at 3-4 units/hour discontinued last night around 6 pm; I was not informed; poor po intake; did not ambulate due to too much pain; no nausea; s/p CABG 03/28 DIET HEART HEALTHY Recent Labs 03/30/18 1155 03/30/18 0840 03/30/18 0230 03/29/18 2104 03/29/18 0620 03/28/18 2205 GLUC -- -- 187* -- -- 119* -- 153* GLUCOSEMETER 337* 290* -- 159* < > -- < > -- < > = values in this interval not displayed. Current hospital medications: amiodarone 360 mg in D5W 200 mL (NEXTERONE) 0.5 mg/min INTRAVENOUS CONTINUOUS pill splitter (patient-specific) 1 Each Miscell. (Med.Supl.;Non- Drugs) PRN insulin lispro 12 Units pen (rapid acting) (HumaLOG KWIKPEN) 12 Units SUBCUTANEOUS w MEALS oxyCODONE ER 10 mg tab(s) (OxyCONTIN) 10 mg ORAL q 3 H PRN metoprolol tartrate (short acting) 25 mg tab(s) (LOPRESSOR) 25 mg ORAL q 8 H dextrose 40 % 15 g 15 g ORAL PRN glucagon 1 mg injection (GLUCAGEN) 1 mg INTRAMUSCULAR PRN dextrose 50% in water 25 mL syringe 12.5 g INTRAVENOUS PRN insulin lispro pen (rapid acting) (HumaLOG KWIKPEN) SUBCUTANEOUS w MEALS insulin glargine 40 Units pen (long acting) (LANTUS SOLOSTAR, BASAGLAR KWIKPEN) 40 Units SUBCUTANEOUS DAILY (8 AM) pantoprazole DR 40 mg tab(s) (PROTONIX) 40 mg ORAL DAILY (6 AM) aspirin 81 mg chewable tab(s) 81 mg ORAL DAILY potassium chloride iv piggyback 20 mEq in sterile water 100 mL 20 mEq INTRAVENOUS PRN magnesium sulfate in water 2 g in sterile water 50 ml 2 g INTRAVENOUS PRN(NO DISPENSE) acetaminophen 650 mg tab(s) (TYLENOL) 650 mg ORAL q 6 H PRN NaCl 0.9% iv infusion 50 mL/hr INTRAVENOUS CONTINUOUS albuterol 2.5 mg /3 mL (0.083 %) 2.5 mg (PROVENTIL) 2.5 mg INHALATION q 2 H PRN niCARdipine 40 mg in NaCl 0.9% 200 mL infusion (CARDENE) 5- 10 mg/hr INTRAVENOUS CONTINUOUS EPINEPHrine 4 mg in NaCl 0.9% 250 mL 2 mcg/min INTRAVENOUS PRN(NO DISPENSE) PHENYLephrine iv infusion 10 mg in NaCl 0.9% 250 mL (UMBERTO-SYNEPHRINE) 0-100 mcg/min INTRAVENOUS CONTINUOUS atorvastatin 40 mg tab(s) (LIPITOR) 40 mg ORAL AT BEDTIME ondansetron (PF) 4 mg injection (ZOFRAN) 4 mg INTRAVENOUS q 6 H PRN calcium chloride 1 g in D5W 100 mL 1 g INTRAVENOUS PRN(NO DISPENSE) morphine 2-4 mg injection 2-4 mg INTRAVENOUS q 1 H PRN NaCl 0.9% iv infusion 250 mL INTRAVENOUS QID PRN Objective PHYSICAL EXAM: BP 92/62 Pulse 94 Temp (Src) 99.9 (Weaver Thermistor) Resp 28 Ht 5' 8 (1.73m) Wt 251 lb 12.3 oz (114.2kg) SpO2 96% BMI 38.29 kg/(m2). General: Well appearing, alert, well-hydrated, well nourished;Obese Skin: skin color, texture, turgor normal, no rashes or lesions. Head: normocephalic, no masses, lesions, tenderness or abnormalities. Eyes: SUSAN,EOMI Oropharynx: moist Neck: Supple, no adenopathy; thyroid symmetric, normal size, no bruits Chest: midsternal incision c/d/i Heart: RRR without murmur, gallop, or rubs. No ectopy Abdomen: soft, non-tender, positive bowel sounds Extremities: no edema, no calluses or ulcers present. Peripheral Pulses: posterior tibial and doralis pedis pulses 2+ and symmetrical ? DATA: Diagnostic tests reviewed for today's visit: Most recent labs and imaging results. Assessment/Plan DM (diabetes mellitus), type 2, uncontrolled; HbA1c 8.2; on oral antihyperglycemics (Metformin/Amaryl/Jardiance) at home; now with complications; ? CAD (coronary artery disease) severe. ?ACS (acute coronary syndrome) s/p revascularization on 03/28 ? Hyperlipemia POA: Yes Assessment AND Plan: per 1 service ? TEOFILO (obstructive sleep apnea) POA: Yes Assessment AND Plan: per 1 service. ? Recommendations: discontinued oral antihyperglycemics; was on prog insulin Levemir 30 units daily AM and humalog 10 units qac tid plus correction prior to surgery; was on iv insulin gtt 3-4 unit/hour yesterday, was discontinued last night around 6 pm therefore BS's elevated this am and now. Transition to sq insulin levemir 40 units qhs, continue Humalog 16 units qac plus correction; if BS still elevated >200 mg/dl in 2 hours will restart iv insulin gtt; SIGNATURE: Ifeoma Cadena MD PATIENT NAME: Carlos Buckner DATE: March 30, 2018 TIME: 12:13 PM PAGER: [phone] NURSING PROG Observed: 03/30/2018 Status: COMPLETED Source: [facility] 9:25 AM [facility] REPOSITORY HNO ID: [id number] Author: Basia MadisonRn) KENYETTA Madrigal Service: Nursing Author Type: Registered Nurse Type: Nursing Progress Note Filed: 03/30/2018 9:29 AM Note Text: Pt encouraged to eat, refusing with poor oral intake, pt did drink Boost. Pt educated on need for protein to heal. Pt encouraged to use incentive spirometer and refusing complaining of too much pain in the left side with inhalation. Pt was refusing to ambulate with prior shift also due to pain in the right side, pt education reinforced about need for deep breathing and movement post-op to ensure appropriate progression of healing. Attending rounding occurred and Dr Rose aware of patient refusal to walk, education reinforced by attending. NURSING PROG Observed: 03/30/2018 Status: COMPLETED Source: [place] 7:46 AM [facility] REPOSITORY HNO ID: [id number] Author: Felicitas MadisonRn) KENYETTA Guzmán Service: Nursing Author Type: Registered Nurse Type: Nursing Progress Note Filed: 03/30/2018 7:51 AM Note Text: Paged Dr. Quinones at 0205 about the patient in Afib RVR, and the patient's trending blood pressure. Informed Dr. Quinones that the patient has no c/o chest pain other his surgery pain. New order given to start patient on Lopressor, Amiodarone, and to check his lab. EKG Observed: 03/30/2018 Status: F Source: [place] 6:46 AM [facility] REPOSITORY NAME : CARLOS BUCKNER PID : [id number] : 1960 Gender : Male Race : ORD : Procedure Date : Mar 30 2018 06:46 Edit Date : Mar 30 2018 08:59 Diagnosis:NORMAL SINUS RHYTHM LOW VOLTAGE QRS IN THE LIMB LEADS ST ELEVATION, CONSIDER EARLY REPOLARIZATION, PERICARDITIS, OR INJURY NONSPECIFIC T WAVE ABNORMALITY ABNORMAL ECG WHEN COMPARED WITH ECG OF 30-MAR-2018 02:08, SINUS RHYTHM HAS REPLACED ATRIAL FIBRILLATION NONSPECIFIC T WAVE ABNORMALITY NO LONGER EVIDENT IN LATERAL LEADS Confirmed by MD Simoen, Bentley ([id number]) on 03/30/2018 8:59:56 AM Ventricular Rate : 94 BPM Atrial Rate : 94 BPM P-R Interval : 168 ms QRS Duration : 86 ms Q-T Interval : 364 ms QTC Calculation(Bezet) : 455 ms P [place] : 49 degrees R [place] : 42 degrees T [place] : 4 degrees Test Reason : Location : 6 : [place] [id number] Overread By : MD Hendrix Anubhav Editted By : MD Hendrix Anubhav Referred By : MIKE ROSE Acquired by : Mahendra Lam CHEST 1 VIEW Observed: 03/30/2018 Status: F Source: [facility] 5:41 AM HEALTH SYSTEM REPOSITORY Performed at [facility] APPROVED BY: Travon Wolf MD EXAM TITLE: CHEST 1 VIEW DATE: 03/30/2018 05:38 COMPARISON: Chest x-ray 03/29/2018 CLINICAL INDICATION/HISTORY: Shortness of breath TECHNIQUE: AP view of the chest. FINDINGS: Right IJ sheath with its tip profiling the right brachiocephalic vein superior vena cava junction. Interval removal of Stark-Nohelia catheter. Left-sided chest tube in stable position. Interval removal of mediastinal drain. The cardiomediastinal silhouette is unremarkable. No pneumothorax. Increased opacification of the left lung base likely representing either atelectasis or small pleural effusion. The pulmonary vessels are within normal limits. Sternotomy wires are present. IMPRESSION: Interval removal of right Stark-Nohelia catheter and mediastinal drain. Otherwise stable appearance of the chest. BASIC PANEL Collected: 03/30/2018 Status: F Source: [facility] 2:30 AM HEALTH SYSTEM REPOSITORY TYPE CODE TESTS RESULT OUT OF REFERENCE UNITS RANGE LAB NA(LOINC) 136-145 mEq/L Sodium Blood 139 LAB K(LOINC) 3.5-5.1 mEq/L Potassium Blood 3.7 LAB CL(LOINC) 98-107 mEq/L Chloride High Blood 108 LAB CO2(LOINC) 21-32 mEq/L Low CO2 Blood 20 LAB GLU(LOINC) 70-99 mg/dL Glucose High Blood 187 LAB BUN(LOINC) 7-18 mg/dL BUN Blood 14 LAB CREA(LOINC 0.67-1.17 mg/dL ) Creatinine Blood 0.85 LAB CA(LOINC) 8.5-10.1 mg/dL Low Calcium Blood 7.7 LAB ANGAP(LOIN 8-16 C) Anion Gap 15 Performed By: #### P8 #### [facility] [address] [place] [address] MAGNESIUM BLOOD Collected: 03/30/2018 Status: F Source: [facility] 2:30 AM HEALTH SYSTEM REPOSITORY TYPE CODE TESTS RESULT OUT OF REFERENCE UNITS RANGE LAB MAG(LOINC) 1.6-2.6 mg/dL Magnesium Blood 1.8 Performed By: #### MAG #### [facility] [address] [place], [place] [address] HEMOGRAM Collected: 03/30/2018 Status: F Source: [facility] 2:30 AM HEALTH SYSTEM REPOSITORY TYPE CODE TESTS RESULT OUT OF REFERENCE UNITS RANGE LAB WBC(LOINC) 4.23-9.07 thou/cmm WBC 8.42 LAB RBC(LOINC) 4.63-6.08 mil/cmm Low RBC 2.71 LAB HGB(LOINC) 13.7-17.5 g/dL Low Hgb 8.5 LAB HCT(LOINC) 40.1-51.0 % Low Hct 25.5 LAB MCV(LOINC) 83.2-95.6 fl MCV 94.1 LAB MCH(LOINC) 25.7-32.2 pg MCH 31.4 LAB MCHC(LOINC) 32.3-36.5 % MCHC 33.3 LAB RDW(LOINC) 11.6-14.4 % RDW 12.5 LAB RDWSD(LOINC 36.1-45.8 fl ) RDW SD 43.4 LAB PLT(LOINC) 141-365 thou/cmm Low Platelet 84 Result Comment: Smear scanned tech agrees with platelet count LAB MPV(LOINC) 8.7-12.0 fl MPV 10.7 Performed By: #### CBC1 #### [facility] [address] [place] [id number] EKG (AK,AV,EU,FV,HL,STACIA,MM,SP) Observed: Status: F Source: [place] 03/30/2018 2:08 AM [facility] OTHER CAMPUS REPOSITORY NAME : CARLOS BUCKNER PID : [id number] : 1960 Gender : Male Race : ORD : [id number] Procedure Date : Mar 30 2018 02:08 Edit Date : Mar 30 2018 08:59 Diagnosis:ATRIAL FIBRILLATION WITH RAPID VENTRICULAR RESPONSE LOW VOLTAGE QRS IN THE LIMB LEADS NONSPECIFIC T WAVE ABNORMALITY ABNORMAL ECG WHEN COMPARED WITH ECG OF 29-MAR-2018 05:22, ATRIAL FIBRILLATION HAS REPLACED SINUS RHYTHM Confirmed by MD Hendrix Anubhav ([id number]) on 03/30/2018 8:59:32 AM Ventricular Rate : 139 BPM Atrial Rate : 129 BPM QRS Duration : 84 ms Q-T Interval : 328 ms QTC Calculation(Bezet) : 499 ms R [place] : 82 degrees T [place] : -13 degrees Test Reason : Arrhythmia Location : 6 : [place] [id number] Overread By : MD Hendrix Anubhav Editted By : MD Hendrix Anubhav Referred By : MIKE ROSE Acquired by : Mahendra Lam NURSING PROG Observed: 03/29/2018 Status: COMPLETED Source: [place] 8:28 PM [facility] REPOSITORY HNO ID: [id number] Author: Felicitas MadisonRn) KENYETTA Guzmán Service: Nursing Author Type: Registered Nurse Type: Nursing Progress Note Filed: 03/29/2018 10:39 PM Note Text: Offered to walk the patient @ 2100 he refused, and stated that he is in to much pain to walk. Nurse also offered to have him primary care coordinator the room. The patient again refused this at this time. Nurse instructed the patient on the importance of walking after open heart. Nurse then offered to walk the patient in the morning. The patient replied okay. NURSING PROG Observed: 03/29/2018 Status: COMPLETED Source: [place] 5:30 PM [facility] REPOSITORY HNO ID: [id number] Author: Sanjeev MadisonRn) Rene RN Service: Nursing Author Type: Registered Nurse Type: Nursing Progress Note Filed: 03/29/2018 6:45 PM Note Text: Thoracic vest applied with assist x 2. Patient remains uncomfortable despite oral pain meds. Morphine 4 mg IV given. Encouraged patient to stand, at bedside and he stated he is in too much pain to stand, and will stand another time. Weaning phenylephrine to maintain a SBP >100 mmHg. NURSING PROG Observed: 03/29/2018 Status: COMPLETED Source: [place] 2:19 PM [facility] REPOSITORY HNO ID: [id number] Author: Sanjeev Acosta) KENYETTA López Service: Nursing Author Type: Registered Nurse Type: Nursing Progress Note Filed: 03/29/2018 2:30 PM Note Text: Patient and family requiring significant amount of support and reassurance. Patient making frequent requests for pain medication. He is unwilling to breathe through his nose, and he is requiring 6-8 lpm of oxygen. When he moans and groans, he vagals and his blood pressure requires further titration of phenylephrine. Encouraged hourly to perform incentive spirometry. Patient provides little to no effort. He states that he is in too much pain to take a deeper breath. Frequent encouragement provided. PROGRESS Observed: 03/29/2018 Status: COMPLETED Source: [place] 12:22 PM [facility] OTHER [facility] REPOSITORY HNO ID: [id number] Author: Martha Chester Service: Critical Care Author Type: Physician Type: Progress Notes Filed: 03/29/2018 12:32 PM Note Text: MICU - PROGRESS NOTE SERVICE DATE: 03/29/2018 Admission Date: 03/21/2018 AGE: [id number] year old LOS: 8 days REASON FOR ICU ADMISSION: s/p CABG, anticipated post-op respiratory insufficiency Subjective HPI/Interval history: Sig hypotension when getting from bed to chair, called to bedside, ran IVF bolus wide open, increased pressors, and increased O2 requirements w/ noted improvement. Now resting in chair, still low dose pressors. Has some pain at chest tube sites. PAST MEDICAL HISTORY Diagnosis Date - CAD (coronary artery disease) - HLD (hyperlipidemia) - HTN (hypertension) 06/10/2017 - Obstructive sleep apnea - Type II or unspecified type diabetes mellitus without mention of complication, not stated as uncontrolled Objective VITAL SIGNS (last 24hrs min/max): Temp Av.6 ?C (99.7 ?F) Min: 36.2 ?C (97.2 ?F) Max: 38.5 ?C (101.3 ?F) Pulse Av Min: 77 Max: 117 Arterial BP 1 Min: 84/57 Max: 152/82 Cuff BP Min: 92/62 Max: 117/64 Pain Score: 10/10 Vital signs reviewed. BP 92/62 Pulse 100 Temp (Src) 100.4 (Weaver Thermistor) Resp 28 Ht 5' 8 (1.73m) Wt 238 lb 1.6 oz (108.0kg) SpO2 98% BMI 36.21 kg/(m2). Temp (24hrs), Av.6 ?C (99.7 ?F), Min:36.2 ?C (97.2 ?F), Max:38.5 ?C (101.3 ?F) NET FLUID BALANCE Intake/Output Summary (Last 24 hours) at 03/29/18 1223 Last data filed at 03/29/18 1000 Gross per 24 hour Intake 2162 ml Output 2004 ml Net 158 ml MEDICATIONS Current Facility-Administered Medications: insulin lispro 12 Units pen (rapid acting) (HumaLOG KWIKPEN) 12 Units SUBCUTANEOUS w MEALS insulin regular iv infusion 250 units in NaCl 0.9% 250 mL - AK CARD SURG NOMOGRAM 0-12 Units/hr INTRAVENOUS CONTINUOUS insulin regular human iv bolus 10 Units 10 Units INTRAVENOUS PRN dextrose 50% in water 25 mL syringe 12.5 g INTRAVENOUS PRN aspirin 81 mg chewable tab(s) 81 mg ORAL DAILY potassium chloride iv piggyback 20 mEq in sterile water 100 mL 20 mEq INTRAVENOUS PRN magnesium sulfate in water 2 g in sterile water 50 ml 2 g INTRAVENOUS PRN(NO DISPENSE) acetaminophen 650 mg tab(s) (TYLENOL) 650 mg ORAL q 6 H PRN NaCl 0.9% iv infusion 50 mL/hr INTRAVENOUS CONTINUOUS albuterol 2.5 mg /3 mL (0.083 %) 2.5 mg (PROVENTIL) 2.5 mg INHALATION q 2 H PRN niCARdipine 40 mg in NaCl 0.9% 200 mL infusion (CARDENE) 5- 10 mg/hr INTRAVENOUS CONTINUOUS EPINEPHrine 4 mg in NaCl 0.9% 250 mL 2 mcg/min INTRAVENOUS PRN(NO DISPENSE) PHENYLephrine iv infusion 10 mg in NaCl 0.9% 250 mL (UMBERTO-SYNEPHRINE) 0-100 mcg/min INTRAVENOUS CONTINUOUS ceFAZolin iv piggyback 2 g in D5W (iso-osmotic) 100 mL (ANCEF) 2 g INTRAVENOUS q 6 HR ondansetron (PF) 4 mg injection (ZOFRAN) 4 mg INTRAVENOUS q 6 H PRN calcium chloride 1 g in D5W 100 mL 1 g INTRAVENOUS PRN(NO DISPENSE) oxyCODONE-acetaminophen 5-325 mg 1-2 tablet (PERCOCET) 1-2 tablet ORAL q 4 H PRN morphine 2-4 mg injection 2-4 mg INTRAVENOUS q 1 H PRN albumin (5%) 25 g infusion 25 g INTRAVENOUS QID PRN NaCl 0.9% iv infusion 250 mL INTRAVENOUS QID PRN Respiratory/Nursing Documentation: O2 Therapy: Nasal Cannula (03/29/18 1115) Invasive Ventilator Mode: Continuous Positive Airway Pressure;Pressure Support Ventilation (found on CPAP per RN, not notified.) (03/28/182350) Set Ventilator Respiratory Rate (BPM): 12 (03/28/182212) Total Respiratory Rate (BPM): 22 (03/28/182350) Tidal Volume Set (mL): 500 (03/28/182212) Exhaled Tidal Volume (mL): 502 (03/28/182350) Minute Volume (L): 10.8 (03/28/182350) Peak Inspiratory Pressure (cm H2O): 16 (03/28/182350) PEEP/CPAP (cm H2O): 5 (03/28/182350) Lines, Drains, and Airways Line Peripheral Assessment Short Left Forearm 20 Gauge -- days Arterial Line 03/28/18 1420 Arterial Line Left Radial less than 1 day Central Line Double Lumen 03/28/18 1435 Pulmonary Artery Catheter Right Neck Through Introducer less than 1 day Peripheral 03/28/18 1415 Assessment Left Hand 18 Gauge less than 1 day Drain Chest Tube 03/28/18 1851 Assessment Midline Anterior Mediastinal 32 Fr Tube #1 less than 1 day Chest Tube 03/28/18 1851 Assessment Midline Anterior Pleural 32 Fr Tube #2 less than 1 day Indwelling Urinary Catheter 03/28/18 1445 Assessment Temperature Monitoring 16 Fr less than 1 day PHYSICAL EXAMINATION: Vitals-reviewed and noted above. Lines/Drains in place as noted above. On 8L nc Obese, following commands Thick neck Lungs decreased at bases RRR Chest tubes w/ serosanguinous drainage A line in place Ab distended mildly but BS+, NT Trace edema No acute rash DATA: All data reviewed, including, but not limited to, data noted below. All diagnostic tests, including labs/specimens and imaging, were personally reviewed by me. MICRO: CXR FINDINGS: 03/29 : Portable frontal view of the chest shows endotracheal tube and enteric tube have been removed. ? Right internal jugular Stark-Nohelia catheter with tip in the pulmonary outflow tract. ? Mediastinal drain overlying the inferior aspect mediastinum. ? Left-sided chest tube overlying left mid chest. ? Cardiac silhouette remains mildly enlarged. ? Widening of the superior mediastinum. ?Stable. ? Lungs are remarkable for probable atelectasis at the left lung base. ? IMPRESSION: ? Status post extubation. OTHER DIAGNOSTICS/ IMAGING: Impression/Recommendations Critical Care Documentation: The patient has the following organ/system impairment(s): # CAD w/ NSTEMI I s/p CABG x 4v 03/28/18 # Acute post-op respiratory insufficiency; s/p extubated as expected on 03/28/18 # Anticipated post-op hypotension # Post-op anemia # Leukocytosis- post-op # TEOFILO on home CPAP PLAN: - Wean pressors to MAP >65 - Wean FiO2 to >90% - Cont CPAP w/ naps and qhs at 8cm H20 - IVFs - Chest tube management per thoracics - Encourage IS - Cardiology following: ASA, statin, BB once BP allows - BG management per endocrine Prognosis: Progressing favorably Code Status: Full Patient/Family Updated: Patient and/or family were updated regarding?the?goals of care,?medical plan for the day, it consultant recommendations, medical disposition and current medical condition/prognosis as clinically indicated. All questions and concerns, if any, were answered and addressed at this juncture. This patient has a high probability of sudden, clinically significant deterioration, which requires the highest level of physician preparedness to intervene urgently. I managed/supervised life or organ supporting interventions that required frequent physician assessment. I devoted my full attention to the direct care of this patient for the amount of time indicated below. Time I spent with family or surrogate(s) is included only if the patient was incapable of providing the necessary information or participating in medical decision making. Time devoted to teaching and to any procedures I billed separately is not included. Discussed with staff. Time spent providing critical care services: 30 minutes, excluding procedures. SIGNATURE: Martha Chester MD [facility] DATE of SERVICE: March 29, 2018 TIME of SERVICE: 12:23 PM CONSULT PROG Observed: 03/29/2018 Status: COMPLETED Source: [place] 11:43 AM [facility] OTHER CAMPUS REPOSITORY [facility] ID: [id number] Author: Ifeoma Cadena Service: Endocrinology Author Type: Physician Type: Consult Progress Note Filed: 03/29/2018 11:48 AM Note Text: ENDOCRINOLOGY CONSULT PROGRESS NOTE SERVICE DATE: 03/29/2018 SERVICE TIME: 11:43 AM Subjective INTERVAL HPI: pt seen for diabetes mellitus;was onLevemir 30 units qam and prandial humalog 10 units qac tid plus correction prior to surgery; now on iv insulin gtt at 3-4 units/hour; did not eat breakfast C/oCP at sternal incision; no nausea; s/p CABG 03/28 DIET NPO Recent Labs 03/29/18 0756 03/29/18 0628 03/29/18 0620 03/29/18 0403 03/28/18 2205 03/28/18 0243 GLUC -- -- 119* -- -- 153* -- 198* GLUCOSEMETER 132* 131* -- 113* < > -- < > -- < > = values in this interval not displayed. Current hospital medications: [START ON 03/30/2018] pantoprazole DR 40 mg tab(s) (PROTONIX) 40 mg ORAL DAILY (6 AM) insulin lispro 12 Units pen (rapid acting) (HumaLOG KWIKPEN) 12 Units SUBCUTANEOUS w MEALS insulin regular iv infusion 250 units in NaCl 0.9% 250 mL - AK CARD SURG NOMOGRAM 0-12 Units/hr INTRAVENOUS CONTINUOUS insulin regular human iv bolus 10 Units 10 Units INTRAVENOUS PRN dextrose 50% in water 25 mL syringe 12.5 g INTRAVENOUS PRN dexmedetomidine 400 mcg in NaCl 0.9% 100 mL (PRECEDEX) 0.2- 0.7 mcg/kg/hr INTRAVENOUS CONTINUOUS aspirin 81 mg chewable tab(s) 81 mg ORAL DAILY potassium chloride iv piggyback 20 mEq in sterile water 100 mL 20 mEq INTRAVENOUS PRN magnesium sulfate in water 2 g in sterile water 50 ml 2 g INTRAVENOUS PRN(NO DISPENSE) acetaminophen 650 mg tab(s) (TYLENOL) 650 mg ORAL q 6 H PRN NaCl 0.9% iv infusion 50 mL/hr INTRAVENOUS CONTINUOUS albuterol 2.5 mg /3 mL (0.083 %) 2.5 mg (PROVENTIL) 2.5 mg INHALATION q 2 H PRN niCARdipine 40 mg in NaCl 0.9% 200 mL infusion (CARDENE) 5- 10 mg/hr INTRAVENOUS CONTINUOUS EPINEPHrine 4 mg in NaCl 0.9% 250 mL 2 mcg/min INTRAVENOUS PRN(NO DISPENSE) PHENYLephrine iv infusion 10 mg in NaCl 0.9% 250 mL (UMBERTO-SYNEPHRINE) 0-100 mcg/min INTRAVENOUS CONTINUOUS atorvastatin 40 mg tab(s) (LIPITOR) 40 mg ORAL AT BEDTIME ceFAZolin iv piggyback 2 g in D5W (iso-osmotic) 100 mL (ANCEF) 2 g INTRAVENOUS q 6 HR ondansetron (PF) 4 mg injection (ZOFRAN) 4 mg INTRAVENOUS q 6 H PRN calcium chloride 1 g in D5W 100 mL 1 g INTRAVENOUS PRN(NO DISPENSE) oxyCODONE-acetaminophen 5-325 mg 1-2 tablet (PERCOCET) 1-2 tablet ORAL q 4 H PRN morphine 2-4 mg injection 2-4 mg INTRAVENOUS q 1 H PRN albumin (5%) 25 g infusion 25 g INTRAVENOUS QID PRN NaCl 0.9% iv infusion 250 mL INTRAVENOUS QID PRN Objective PHYSICAL EXAM: BP 92/62 Pulse 100 Temp (Src) 100.4 (Temporal Artery) Resp 28 Ht 5' 8 (1.73m) Wt 238 lb 1.6 oz (108.0kg) SpO2 98% BMI 36.21 kg/(m2). General: Well appearing, alert, well-hydrated, well nourished;Obese Skin: skin color, texture, turgor normal, no rashes or lesions. Head: normocephalic, no masses, lesions, tenderness or abnormalities. Eyes: SUSAN,EOMI Oropharynx: moist Neck: Supple, no adenopathy; thyroid symmetric, normal size, no bruits Chest: midsternal incision c/d/i Heart: RRR without murmur, gallop, or rubs. No ectopy Abdomen: soft, non-tender, positive bowel sounds Extremities: no edema, no calluses or ulcers present. Peripheral Pulses: posterior tibial and doralis pedis pulses 2+ and symmetrical ? DATA: Diagnostic tests reviewed for today's visit: Most recent labs and imaging results. Assessment/Plan DM (diabetes mellitus), type 2, uncontrolled; HbA1c 8.2; on oral antihyperglycemics (Metformin/Amaryl/Jardiance) at home; now with complications; ? CAD (coronary artery disease) severe. ?ACS (acute coronary syndrome) s/p revascularization on 03/28 ? Hyperlipemia POA: Yes Assessment AND Plan: per 1 service ? TEOFILO (obstructive sleep apnea) POA: Yes Assessment AND Plan: per 1 service. ? Recommendations: discontinued oral antihyperglycemics; was on prog insulin Levemir 30 units daily AM and humalog 10 units qac tid plus correction prior to surgery; now on iv insulin gtt 3-4 unit/hour. Cont rx; add prandial humalog 12 units qac tid (half dose if less than 30 %po). will keep BS under tightly controlled; will follow. SIGNATURE: Ifeoma Cadena MD PATIENT NAME: Carlos Buckner DATE: March 29, 2018 TIME: 11:47 AM PAGER: [phone] PROGRESS Observed: 03/29/2018 Status: COMPLETED Source: [place] 11:10 AM [facility] OTHER [facility] REPOSITORY [facility] ID: [id number] Author: Mike Rose Service: Cardiovascular Medicine Author Type: Physician Type: Progress Notes Filed: 03/29/2018 1:22 PM Note Text: CARDIOTHORACIC SURGERY POSTOP PROGRESS NOTE SERVICE DATE: 03/29/2018 SERVICE TIME: 11:10 AM Subjective S/P SURGERY: Procedure(s) (LRB): BYPASS GRAFT ARTERY CORONARY ON-PUMP USING VENOUS GRAFT(S) AND ARTERIAL GRAFT(S) THREE VENOUS GRAFTS (N/A) DATE OF SURGERY: 03/28/2018 POSTOP DAY #1 LOS: 8 INTERVAL EVENTS / PERTINENT ROS: Patient seen and examined. Status post extubation. Pt orthostatic hypotensive when transferring to chair this AM. Resolved with laying patient reclined in chair. Objective Admission Weight: 106.7 kg (235 lb 3.2 oz) BP 92/62 Pulse 107 Temp 38 ?C (100.4 ?F) Resp (!) 37 Ht 172.7 cm (5' 8) Wt 108 kg (238 lb 1.6 oz) SpO2 97% BMI 36.20 kg/m? Body surface area is 2.28 meters squared. Min/Max/Average Temperature AND Blood Pressure: Temp (24hrs), Av.6 ?C (99.6 ?F), Min:36.2 ?C (97.2 ?F), Max:38.5 ?C (101.3 ?F) Systolic (24hrs), Av , Min:92 , Max:117 Diastolic (24hrs), Av, Min:62, Max:64 Intake/Output Summary (Last 24 hours) at 03/29/18 1110 Last data filed at 03/29/18 1000 Gross per 24 hour Intake 2162 ml Output 2004 ml Net 158 ml TELEMETRY: normal sinus rhythm PHYSICAL EXAM: General Appearance: no distress Skin: Midsternal incision dry AND intact. and SVG incisions dry AND intact. Head/Eyes: EOM's intact Neck: RIJ in place, supple, thick Lungs: decreased breath sounds and respiratory effort: shallow Heart: regular rhythm, no murmur and pacing wires present Peripheral Vascular/Arteries: dorsalis pedis 2+ and radial 2+ Abdomen: soft, non-tender and bowel sounds present Extremities: Trace LE edema Lines, Drains, and Airways Line Peripheral Assessment Short Left Forearm 20 Gauge -- days Arterial Line 03/28/18 1420 Arterial Line Left Radial less than 1 day Central Line Double Lumen 03/28/18 1435 Pulmonary Artery Catheter Right Neck Through Introducer less than 1 day Peripheral 03/28/18 1415 Assessment Left Hand 18 Gauge less than 1 day Drain Chest Tube 03/28/18 1851 Assessment Midline Anterior Mediastinal 32 Fr Tube #1 less than 1 day Chest Tube 03/28/18 1851 Assessment Midline Anterior Pleural 32 Fr Tube #2 less than 1 day Indwelling Urinary Catheter 03/28/18 1445 Assessment Temperature Monitoring 16 Fr less than 1 day DATA: Diagnostic tests reviewed for today's visit: Chest CT Scan: normal post-operaive changes Recent Labs 03/29/18 0620 03/28/18 2205 03/28/18202603/28/18 0243 RBC 3.07* 3.43* -- -- 4.13* WBC 9.34* 17.86* -- -- 4.52 HB 9.8* 10.9* -- -- 13.0* HCT 28.5* 32.2* 26* < > 37.9* PLT 107* 114* -- -- 174 INR 1.16 1.30 -- -- 1.03 APTT -- 25.4 -- -- -- NA 143 145 145 < > 137 K 4.0 4.0 3.3* < > 3.8 CHLOR 115* 116* -- -- 104 CO2 21 19* -- -- 26 BUN 11 14 -- -- 17 CREAT 0.75 0.83 -- -- 0.84 GLUC 119* 153* -- -- 198* CA 7.2* 6.8* -- -- 8.5 MG 1.6 1.6 -- -- -- ANION 11 14 -- -- 11 < > = values in this interval not displayed. Recent Labs 03/29/18 0620 03/28/18 2345 03/28/18 2205 03/28/18202603/28/18 1946 03/28/18 1913 PH 7.353 7.300* 7.243* 7.308* 7.371 7.396 PCO2 39.3 38.4 45.1 -- -- -- PO2 81.4* 81.7* 80.0* 181.0* 323.0* 326.0* BE -3.8 -7.3 -8.0 -- -- -- HCO3 -- -- -- 20.2* 24.1 24.5 Assessment/Plan CAD/ NSTEMI -s/p CABG x 3; POD#1 -s/p extubation -Wean Umberto -Medical therapy with ASA 81 mg , atorvastatin 40 mg, metoprolol wean off Umberto -Plavix in future -Pain control -Thorax vest -IS/PT/ OT -CT to suction -Discontinue weaver catheter Anticipated post-operative respiratory insufficiency -Wean O2 as able -IS/ PT/OT Reactive leukocytosis -Resolved Post operative anemia -Hgb 9.8 -No indication for transfusion -Monitor Orthostatic hypotension -Resolved -Slow transitions with bed to chair and chair to ambulation Thrombocytopenia -2/2 OR -No transfusion indicated HLD -Statin TEOFILO -Continue on CPAP QHS DM -Currently on insulin gtt -Endocrinology following HTN -Currently on Discussed with Dr. Rose and CVICU team SIGNATURE: Rubén Traore PA-C PATIENT NAME: Carlos Buckner DATE: March 29, 2018 TIME: 11:10 AM PAGER/CONTACT #: [phone] [facility] just before episode of first time up and decreased BP/orthostasis. Labs, cxr, data, course, and careplan reviewed P-as ordered. NURSING PROG Observed: 03/29/2018 Status: COMPLETED Source: [place] 10:10 AM [facility] OTHER CAMPUS REPOSITORY [facility] ID: [id number] Author: Sanjeev MadisonRn) KENYETTA López Service: Nursing Author Type: Registered Nurse Type: Nursing Progress Note Filed: 03/29/2018 11:52 AM Note Text: Assisted patient to bedside recliner with assist of 3. Unsteady and complaining of extreme pain. Holding his breath and then panting. Sitting in chair continued to scream out in pain, holding his breath and then vagal response. Reclined patient in the chair, opened fluids wide open and increased phenylephrine. Recovered with interventions, and patient became more alert. Breathing recovered as well. Adjusted patient in chair, and encouraged to breathe slowly and through his nose. Oxygen increased to 6 lpm. PA catheter discontinued as ordered. NUTRITION Observed: 03/29/2018 Status: COMPLETED Source: [facility] 9:45 AM CLINIC OTHER CAMPUS REPOSITORY HNO ID: [id number] Author: Patt Stephenson) AL Seymour Service: Nutrition Therapy Author Type: Registered Dietitian Type: Nutrition Filed: 03/29/2018 3:18 PM Note Text: NUTRITION THERAPY INITIAL ASSESSMENT SERVICE DATE: 03/29/2018 SERVICE TIME: 9:45 AM RECOMMENDED MALNUTRITION DIAGNOSIS: NO MALNUTRITION IDENTIFIED NUTRITION CARE PLAN: Problem, Etiology and Signs/Symptoms: Increased nutrient needs kcal/protein related to increased metabolic demand from major surgery as evidenced by CABG 03/28 Intervention: Advance diet as tolerated to goal Heart Healthy and carbohydrate controlled Added Boost Glucose Control TID to provide 750 kcal and 42 gm protein Coordination of Care: Nursing Monitor and Evaluation: Goal: Meet >75% of estimated needs Monitor fluid/electrolyte balance Monitor labs, I/Os, vital signs, weight Discharge Nutrition Recommendations: Diet: Carbohydrate controlled and heart healthy Chart reviewed for length of stay Per HPI: 57 year old male who presented to [place] two days ago from 03/21 with chest pain, found to have NSTEMI. he had cardiac cath done with findings of three vessels disease and was transferred to [facility] for CTS evaluation for CABG. Upon admission he was asymptomatic. Interval History: CTS surgery consulted. Endocrinology consulted for DM. Underwent CABG on 03/28. Extubated and remains NPO at present. ACTIVE PROBLEM LIST Hyperlipemia Teofilo (Obstructive Sleep Apnea) Dm (Diabetes Mellitus), Type 2, Uncontrolled (Hcc) Erectile Dysfunction Associated With Type 2 Diabetes Mellitus (Hcc) Hypertriglyceridemia Htn (Hypertension) Chest Pain Cad (Coronary Artery Disease) Acs (Acute Coronary Syndrome) (Hcc) Nstemi (Non-St Elevated Myocardial Infarction) (Hcc) PAST MEDICAL HISTORY Diagnosis Date - CAD (coronary artery disease) - HLD (hyperlipidemia) - HTN (hypertension) 06/10/2017 - Obstructive sleep apnea - Type II or unspecified type diabetes mellitus without mention of complication, not stated as uncontrolled PAST SURGICAL HISTORY Procedure Laterality Date - COLONOSCOP W/ OR W/O BRSH SPEC 01/17/15 Colonoscopy - KIDNEY SURGERY HX - LITHOTRIPSY PROC UNILATERAL 2006 left side done in [place] - PAST SURGICAL HISTORY OF dog bite age 5 - PAST SURGICAL HISTORY OF chainsaw injury Social History Marital status: Spouse name: ramana Years of education: Number of children: 2 Occupational History 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 13 and 15 in 2011 No TV in house Current Diet Order DIET NPO Lines and Drains: Central Line Double Lumen 03/28/18 1435 Pulmonary Artery Catheter Right Neck Through Introducer (Active) Peripheral Assessment Short Left Forearm 20 Gauge (Active) Peripheral 03/28/18 1415 Assessment Left Hand 18 Gauge (Active) Indwelling Urinary Catheter 03/28/18 1445 Assessment Temperature Monitoring 16 Fr (Active) Chest Tube 03/28/18 1851 Assessment Midline Anterior Mediastinal 32 Fr Tube #1 (Active) Chest Tube 03/28/18 1851 Assessment Midline Anterior Pleural 32 Fr Tube #2 (Active) Nutritional Intake Prior to Admission: >75% estimated energy needs over the past >1 month(s), reports good po intake prior to admission Current Nutritional Intake: >75% estimated energy needs over the past 8 day(s), prior to OR intake 75-100% meals GI symptoms: no appetite at present and fearful of vomiting Nutrition Abdominal Exam:, abdomen is soft and nondistended and bowel sounds are hypoactive, per clinical documentation ANTHROPOMETRICS Height: 172.7 cm (5' 8) Admission Weight: 106.7 kg (235 lb 3.2 oz) Current Weight: 108 kg (238 lb 1.6 oz) Body mass index is 36.2 kg/m?. class 2 obesity Weight has not changed significantly Last Wt 03/29/18 : 108 kg (238 lb 1.6 oz) 06/10/17 : 110.2 kg (243 lb) - 9 months 01/20/17 : 108 kg (238 lb) - 14 months 03/20/16 : 110.7 kg (244 lb) 03/07/16 : 111.3 kg (245 lb 6.4 oz) 04/12/15 : 114.8 kg (253 lb) 03/12/15 : 113.4 kg (250 lb) 01/17/15 : 112.9 kg (248 lb 14.4 oz) 01/11/15 : 112.9 kg (249 lb) 01/11/15 : 112.5 kg (248 lb) 12/10/14 : 114.3 kg (252 lb) 09/08/14 : 109.8 kg (242 lb) 07/27/14 : 108.4 kg (239 lb) 07/06/14 : 108.4 kg (239 lb) 06/30/14 : 106.1 kg (234 lb) 11/30/13 : 112.5 kg (248 lb) 01/11/13 : 115.7 kg (255 lb) 01/03/13 : 114.4 kg (252 lb 1.9 oz) 08/23/12 : 111.2 kg (245 lb 1.9 oz) 08/03/12 : 109.8 kg (242 lb 1.9 oz) [place] Body Weight: 70kg Dosing Weight: 108 kg Resting Metabolic Rate: 1882 Estimated kilocalorie needs: 7615-5043 kilocalories determined by 25-30 kcal/kg Estimated protein needs: 105-140 grams determined by 1.5-2.0 g/kg [place] weight Estimated fluid needs: 9539-8610 milliliters based on 1 mL per kcal NUTRITION FOCUSED PHYSICAL EXAM: Subcutaneous Fat Loss Orbital No fat loss Triceps No fat loss Mid-axillary at the iliac crest Unable to determine at this time Muscle Loss Locations: Temporalis No muscle loss Pectoralis No muscle loss Deltoids No muscle loss Interosseous No muscle loss Latissimus dorsi, trapezius Unable to determine at this time Quadriceps Unable to determine at this time Gastrocnemius Unable to determine at this time Potential micronutrient deficiency revealed in: No deficiency identified Edema: Yes Lower extremities Mild 1+ Ascites: No Assessment of Functional Status: No functional impairment, normal with no limitations Temperature Max in 24 hours: Temp (24hrs), Av.5 ?C (99.5 ?F), Min:36.2 ?C (97.2 ?F), Max:38.5 ?C (101.3 ?F) BP 92/62 Pulse 107 Temp 38.1 ?C (100.6 ?F) Resp 30 Ht 172.7 cm (5' 8) Wt 108 kg (238 lb 1.6 oz) SpO2 96% BMI 36.20 kg/m? Recent Labs 03/29/18 0620 GLUC 119* BUN 11 CREAT 0.75 NA 143 K 4.0 CHLOR 115* CO2 21 HB 9.8* HCT 28.5* WBC 9.34* MG 1.6 Potential Signs of Inflammation: leukocytosis, hyperglycemia, hyperthermia, tachycardia, acute post-operative and chronic condition ALLERGIES Allergen Reactions - Oysters Rash, Itching - Shellfish Containin* Rash Current Facility-Administered Medications: insulin regular iv infusion 250 units in NaCl 0.9% 250 mL - AK CARD SURG NOMOGRAM 0-12 Units/hr INTRAVENOUS CONTINUOUS insulin regular human iv bolus 10 Units 10 Units INTRAVENOUS PRN dextrose 50% in water 25 mL syringe 12.5 g INTRAVENOUS PRN dexmedetomidine 400 mcg in NaCl 0.9% 100 mL (PRECEDEX) 0.2- 0.7 mcg/kg/hr INTRAVENOUS CONTINUOUS aspirin 81 mg chewable tab(s) 81 mg ORAL DAILY potassium chloride iv piggyback 20 mEq in sterile water 100 mL 20 mEq INTRAVENOUS PRN magnesium sulfate in water 2 g in sterile water 50 ml 2 g INTRAVENOUS PRN(NO DISPENSE) acetaminophen 650 mg tab(s) (TYLENOL) 650 mg ORAL q 6 H PRN NaCl 0.9% iv infusion 50 mL/hr INTRAVENOUS CONTINUOUS albuterol 2.5 mg /3 mL (0.083 %) 2.5 mg (PROVENTIL) 2.5 mg INHALATION q 2 H PRN niCARdipine 40 mg in NaCl 0.9% 200 mL infusion (CARDENE) 5- 10 mg/hr INTRAVENOUS CONTINUOUS EPINEPHrine 4 mg in NaCl 0.9% 250 mL 2 mcg/min INTRAVENOUS PRN(NO DISPENSE) PHENYLephrine iv infusion 10 mg in NaCl 0.9% 250 mL (UMBERTO-SYNEPHRINE) 0-100 mcg/min INTRAVENOUS CONTINUOUS ceFAZolin iv piggyback 2 g in D5W (iso-osmotic) 100 mL (ANCEF) 2 g INTRAVENOUS q 6 HR ondansetron (PF) 4 mg injection (ZOFRAN) 4 mg INTRAVENOUS q 6 H PRN calcium chloride 1 g in D5W 100 mL 1 g INTRAVENOUS PRN(NO DISPENSE) midazolam (PF) 2 mg injection (VERSED) 2 mg INTRAVENOUS q 6 H PRN oxyCODONE-acetaminophen 5-325 mg 1-2 tablet (PERCOCET) 1-2 tablet ORAL q 4 H PRN morphine 2-4 mg injection 2-4 mg INTRAVENOUS q 1 H PRN albumin (5%) 25 g infusion 25 g INTRAVENOUS QID PRN NaCl 0.9% iv infusion 250 mL INTRAVENOUS QID PRN Date 03/28/18699 - 03/29/18 0659 03/29/18 07 - 03/30/18 0659 Shift 5270-6764 3881-9997 0640-5574 24 Hour Total 9980-5298 4007-7071 6928-6365 24 Hour Total I N T A K E IV 2161 2161 NS 0.9% 650 650 Potassium IVPB 100 100 Regular Insulin IV 30 30 EPINEPHrine Volume 12 12 Dexmedetomidine IV 90 90 Phenylephrine Volume 280 280 ALBUMIN (mL) 1000 1000 Shift Total 2162 2162 O U T P U T Urine 1082 1082 157 157 Tube Output ( Indwelling Urinary Catheter 03/28/18 1445 Assessment Temperature Monitoring 16 Fr) 1082 1082 157 157 Chest Tube 470 470 90 90 Chest Tube Output (Chest Tube 03/28/18 1851 Assessment Midline Anterior Mediastinal 32 Fr Tube #1) 470 470 90 90 Chest Tube Output (Chest Tube 03/28/18 1851 Assessment Midline Anterior Pleural 32 Fr Tube #2) 0 0 # of BMs Number of BMs 0 x 0 x 0 x 0 x Shift Total 1552 1552 247 247 Weight (kg) 105.2 105.2 105.2 105.2 108 108 108 108 Vitamin and Mineral Labs in the past year:No results for input(s): CHROMIUM, COPPER, MANGANESE, SELENIUM, VITAMINA, VITB1, VITB2, VITB6, B12, METHYLMAL, VITD25, VITAMINE, VITAK, ZINC, TIBC, FE, PHONG in the last 8784 hours. MNT Billing Type: Initial Assess/15 min 4 units SIGNATURE: Patt Seymour RD, RONNY PATIENT NAME: Carlos Buckner DATE: March 29, 2018 TIME: 9:45 AM PAGER: [phone] CONSULT PROG Observed: 03/29/2018 Status: COMPLETED Source: [facility] 9:18 AM CLINIC OTHER CAMPUS REPOSITORY HNO ID: [id number] Author: Jake Johns Service: Cardiovascular Medicine Author Type: Physician Type: Consult Progress Note Filed: 03/29/2018 11:43 AM Note Text: PROGRESS NOTE CARDIOLOGY SERVICE SERVICE DATE: 03/29/2018 SERVICE TIME: 9:18 AM Subjective INTERIM HISTORY: In chair, c/o some sternal pain; no nausea or syncope Objective PHYSICAL EXAM: Body mass index is 36.2 kg/m?. O2 Therapy: Nasal Cannula No Data Recorded Patient Vitals for the past 24 hrs: BP Temp Temp src Pulse Resp SpO2 Weight 03/29/18 0900 - 38.1 ?C (100.6 ?F) - 107 30 96 % - 03/29/18 0800 92/62 38.5 ?C (101.3 ?F) - 109 28 97 % - 03/29/18 0710 - 38.5 ?C (101.3 ?F) Temporal Art - - - - 03/29/18 0700 - - - 117 24 95 % 108 kg (238 lb 1.6 oz) 03/29/18 0600 - 38.4 ?C (101.1 ?F) - 114 (!) 34 96 % - 03/29/18 0500 - - - 113 26 96 % - 03/29/18 0400 - 37.3 ?C (99.1 ?F) - 113 28 96 % - 03/29/18 0330 - - - 115 30 96 % - 03/29/18 0300 - 37.2 ?C (99 ?F) - 112 26 95 % - 03/29/18 0200 - 37.3 ?C (99.1 ?F) - 106 23 94 % - 03/29/18 0130 - - - 114 23 97 % - 03/29/18 0041 - - - 110 22 98 % - 03/29/18 0030 - - - 116 21 95 % - 03/29/18 0000 - 37.2 ?C (99 ?F) - 112 22 95 % - 03/28/18 2351 - - - 111 22 96 % - 03/28/18 2345 - - - 108 19 93 % - 03/28/18 2340 - - - 110 21 94 % - 03/28/18 2330 - - - 107 19 93 % - 03/28/18 2300 - - - 110 23 100 % - 03/28/18 2245 - 36.4 ?C (97.5 ?F) - 105 18 95 % - 03/28/18 2230 - - - 102 12 96 % - 03/28/18 2215 - - - 100 8 97 % - 03/28/18 2205 - - - 106 19 95 % - 03/28/18 1304 117/64 - - - - - - 03/28/18 1301 - 36.2 ?C (97.2 ?F) Temporal Art 77 13 99 % - 03/28/18 1147 108/64 - - - - - - 03/28/18 1135 - - - - - - 105.2 kg (232 lb) Obese Mild pain Awake and alert Moves all extrem Chest sternotomy clean COR RRR ?rub Abd obese nontender SCDs on legs PA pressure 28/12 Tele sinus tach MEDICATIONS: Current hospital medications: desmopressin 31.56 mcg in NaCl 0.9% 50 mL (DDAVP) 0.3 mcg/kg/dose INTRAVENOUS ONCE insulin regular iv infusion 250 units in NaCl 0.9% 250 mL - AK CARD SURG NOMOGRAM 0-12 Units/hr INTRAVENOUS CONTINUOUS insulin regular human iv bolus 10 Units 10 Units INTRAVENOUS PRN dextrose 50% in water 25 mL syringe 12.5 g INTRAVENOUS PRN dexmedetomidine 400 mcg in NaCl 0.9% 100 mL (PRECEDEX) 0.2- 0.7 mcg/kg/hr INTRAVENOUS CONTINUOUS aspirin 81 mg chewable tab(s) 81 mg ORAL DAILY potassium chloride iv piggyback 20 mEq in sterile water 100 mL 20 mEq INTRAVENOUS PRN magnesium sulfate in water 2 g in sterile water 50 ml 2 g INTRAVENOUS PRN(NO DISPENSE) acetaminophen 650 mg tab(s) (TYLENOL) 650 mg ORAL q 6 H PRN NaCl 0.9% iv infusion 50 mL/hr INTRAVENOUS CONTINUOUS albuterol 2.5 mg /3 mL (0.083 %) 2.5 mg (PROVENTIL) 2.5 mg INHALATION q 2 H PRN niCARdipine 40 mg in NaCl 0.9% 200 mL infusion (CARDENE) 5- 10 mg/hr INTRAVENOUS CONTINUOUS EPINEPHrine 4 mg in NaCl 0.9% 250 mL 2 mcg/min INTRAVENOUS PRN(NO DISPENSE) PHENYLephrine iv infusion 10 mg in NaCl 0.9% 250 mL (UMBERTO-SYNEPHRINE) 0-100 mcg/min INTRAVENOUS CONTINUOUS atorvastatin 40 mg tab(s) (LIPITOR) 40 mg ORAL AT BEDTIME ceFAZolin iv piggyback 2 g in D5W (iso-osmotic) 100 mL (ANCEF) 2 g INTRAVENOUS q 6 HR ondansetron (PF) 4 mg injection (ZOFRAN) 4 mg INTRAVENOUS q 6 H PRN calcium chloride 1 g in D5W 100 mL 1 g INTRAVENOUS PRN(NO DISPENSE) midazolam (PF) 2 mg injection (VERSED) 2 mg INTRAVENOUS q 6 H PRN oxyCODONE-acetaminophen 5-325 mg 1-2 tablet (PERCOCET) 1-2 tablet ORAL q 4 H PRN morphine 2-4 mg injection 2-4 mg INTRAVENOUS q 1 H PRN albumin (5%) 25 g infusion 25 g INTRAVENOUS QID PRN NaCl 0.9% iv infusion 250 mL INTRAVENOUS QID PRN DATA: Past 72 Hour Labs: Recent Labs 03/29/18 0620 03/28/18 2205 WBC 9.34* 17.86* RBC 3.07* 3.43* HB 9.8* 10.9* HCT 28.5* 32.2* MCV 92.8 93.9 MCH 31.9 31.8 MCHC 34.4 33.9 PLT 107* 114* MPV 10.7 10.2 GLUC 119* 153* BUN 11 14 CREAT 0.75 0.83 NA 143 145 K 4.0 4.0 CHLOR 115* 116* CO2 21 19* CA 7.2* 6.8* PTSEC 11.9 13.3* APTT -- 25.4 INR 1.16 1.30 MG 1.6 1.6 Last Lab Drawn: Triglyceride 304 06/10/2017 HDL Cholesterol 27 06/10/2017 LDL Chol, [place] 31 06/10/2017 Cholesterol, Total 119 06/10/2017 Assessment/Plan 1.s/p CABG: POD #1, doing well; f/u in [place] upon d/c; Apprec Dr Rose's care; LVEF 55% preoop; SIGNATURE: Jake Johns MD PATIENT NAME: Carlos Buckner DATE: March 29, 2018 TIME: 9:18 AM PAGER/CONTACT #: NURSING PROG Observed: 03/29/2018 Status: COMPLETED Source: [facility] 8:26 AM CLINIC OTHER CAMPUS REPOSITORY HNO ID: [id number] Author: Sanjeev (Rn) KENYETTA López Service: Nursing Author Type: Registered Nurse Type: Nursing Progress Note Filed: 03/29/2018 8:32 AM Note Text: Patient awake, complains of thirst. Taking ice chips without nausea/vomiting/aspiration. Phenylephrine, precedex, insulin, and IV fluids as listed in EPIC. Titration of phenylephrine to SBP > 90 mmHg. Nasal oxygen at 4 lpm. Chest tubes with serosanguinous drainage; 170 ml of drainage in chamber. Urine output > 30 ml/hr. All invasive lines intact and patent. Surgical incision sites without hematoma and without drainage noted. Vital signs and assessment as documented in [facility]. BLOOD GAS ARTERIAL Collected: 03/29/2018 Status: F Source: [facility] 6:20 AM HEALTH SYSTEM REPOSITORY TYPE CODE TESTS RESULT OUT OF REFERENCE UNITS RANGE LAB TEMPA(LOIN C) Temperature 38.3 LAB PH(LOINC) 7.350-7.450 pH Arterial 7.353 LAB PCO2(LOINC 36.0-46.0 mm Hg ) PCO2 Arterial 39.3 LAB PO2(LOINC) 85.0-96.0 mm Hg Low PO2 Arterial 81.4 LAB HCO3A(LOIN 22.0-26.0 mEq/L C) Low HCO3- 21.0 LAB O2%A(LOINC 95.0-98.0 % ) O2% Sat Arterial 97.0 LAB BASEX(LOIN -2.5 to 2.5 mEq/L C) Base Excess -3.8 LAB FIO2(LOINC % ) FIO2 36 Performed By: #### ABG #### [facility] [address] [place] [id number] HEMOGRAM Collected: 03/29/2018 Status: F Source: [facility] 6:20 AM HEALTH SYSTEM REPOSITORY TYPE CODE TESTS RESULT OUT OF REFERENCE UNITS RANGE LAB WBC(LOINC) 4.23-9.07 thou/cmm High WBC 9.34 LAB RBC(LOINC) 4.63-6.08 mil/cmm Low RBC 3.07 LAB HGB(LOINC) 13.7-17.5 g/dL Low Hgb 9.8 LAB HCT(LOINC) 40.1-51.0 % Low Hct 28.5 LAB MCV(LOINC) 83.2-95.6 fl MCV 92.8 LAB MCH(LOINC) 25.7-32.2 pg MCH 31.9 LAB MCHC(LOINC) 32.3-36.5 % MCHC 34.4 LAB RDW(LOINC) 11.6-14.4 % RDW 12.3 LAB RDWSD(LOINC 36.1-45.8 fl ) RDW SD 41.7 LAB PLT(LOINC) 141-365 thou/cmm Low Platelet 107 LAB MPV(LOINC) 8.7-12.0 fl MPV 10.7 Performed By: #### CBC1 #### [place] [id number] BASIC PANEL Collected: 03/29/2018 Status: F Source: [facility] 6:20 AM HEALTH SYSTEM REPOSITORY TYPE CODE TESTS RESULT OUT OF REFERENCE UNITS RANGE LAB NA(LOINC) 136-145 mEq/L Sodium Blood 143 LAB K(LOINC) 3.5-5.1 mEq/L Potassium Blood 4.0 LAB CL(LOINC) 98-107 mEq/L Chloride High Blood 115 LAB CO2(LOINC) 21-32 mEq/L CO2 Blood 21 LAB GLU(LOINC) 70-99 mg/dL Glucose High Blood 119 LAB BUN(LOINC) 7-18 mg/dL BUN Blood 11 LAB CREA(LOINC 0.67-1.17 mg/dL ) Creatinine Blood 0.75 LAB CA(LOINC) 8.5-10.1 mg/dL Low Calcium Blood 7.2 LAB ANGAP(LOIN 8-16 C) Anion Gap 11 Performed By: #### P8 #### [facility] [address] [place], [place] [address] MAGNESIUM BLOOD Collected: 03/29/2018 Status: F Source: [facility] 6:20 AM HEALTH SYSTEM REPOSITORY TYPE CODE TESTS RESULT OUT OF REFERENCE UNITS RANGE LAB MAG(LOINC) 1.6-2.6 mg/dL Magnesium Blood 1.6 Performed By: #### MAG #### [facility] [address] [place], [place] [address] PROTIME Collected: 03/29/2018 Status: F Source: [facility] 6:20 AM HEALTH SYSTEM REPOSITORY TYPE CODE TESTS RESULT OUT OF REFERENCE UNITS RANGE LAB PTI(LOINC) 9.7-13.0 sec Prothrombin Time 11.9 LAB INR(LOINC) 0.90-1.30 INR 1.16 Result Comment: Note: Reference Range Change Vitamin K Antagonist (VKA) Therapeutic Range: INR 2 to 3 (Target INR of 2.5) Note: For patients treated with VKA drugs, such as warfarin, the [employer] 2012 Guideline recommends a therapeutic INR range of 2 to 3 (target INR of 2.5). This recommendation includes high-risk patients with antiphospholipid syndrome with previous arterial or venous thromboembolism, current-generation mechanical or bioprosthetic aortic heart valve replacement. VKA Therapeutic Range for some Mechanical Valve Replacement: INR 2.5 to 3.5 (Target INR of 3) Note: Patients with mechanical aortic valve replacement and additional risk factors for thromboembolic events (atrial fibrillation, previous thromboembolism, LV dysfunction, hypercoagulable conditions) or an older generation mechanical AVR (i.e., ball in-Cage) or any mechanical MVR should have a INR therapeutic range of 2.5 to 3.5 target INR of 3). Stefanie GH, et al. Chest 2012; 141:7S-47S Brie RA, et al. JACC 2017; 70: 252-289 Performed By: #### PT #### [facility] [address] [place] [id number] CHEST 1 VIEW Observed: 03/29/2018 Status: F Source: [facility] 5:45 AM HEALTH SYSTEM REPOSITORY Performed at [facility] APPROVED BY: Dimas Foster MD EXAM TITLE: CHEST 1 VIEW DATE: 03/29/2018 05:40 INDICATION: Status post extubation COMPARISON: 03/28/2018 at 2200 Portable frontal view of the chest shows endotracheal tube and enteric tube have been removed. Right internal jugular Stark-Nohelia catheter with tip in the pulmonary outflow tract. Mediastinal drain overlying the inferior aspect mediastinum. Left-sided chest tube overlying left mid chest. Cardiac silhouette remains mildly enlarged. Widening of the superior mediastinum. Stable. Lungs are remarkable for probable atelectasis at the left lung base. IMPRESSION: Status post extubation. EKG (AK,AV,EU,FV,HL,STACIA,MM,SP) Observed: Status: F Source: [facility] 03/29/2018 5:22 AM [facility] REPOSITORY NAME : CARLOS BUCKNER PID : [id number] : 1960 Gender : Male Race : ORD : [id number] Procedure Date : Mar 29 2018 05:22 Edit Date : Mar 29 2018 08:37 Diagnosis:SINUS TACHYCARDIA LOW VOLTAGE QRS IN LIMB LEADS NONSPECIFIC T WAVE ABNORMALITY ABNORMAL ECG WHEN COMPARED WITH ECG OF 28-MAR-2018 22:09, QUESTIONABLE CHANGE IN QRS AXIS Confirmed by MD Hendrix Anubhav ([id number]) on 03/29/2018 8:37:32 AM Ventricular Rate : 113 BPM Atrial Rate : 113 BPM P-R Interval : 190 ms QRS Duration : 86 ms Q-T Interval : 326 ms QTC Calculation(Bezet) : 447 ms P [place] : 60 degrees R [place] : 39 degrees T [place] : -2 degrees Test Reason : Post OP Location : 6 : [place] [address] Overread By : MD Hendrix Anubhav Editted By : MD Hendrix Anubhav Referred By : MIKE ROSE Acquired by : Ludivina Solis OPERATIVE NO Observed: 03/29/2018 Status: COMPLETED Source: [facility] 12:00 AM [facility] REPOSITORY HNO ID: [id number] Author: Mike Rose Service: Thoracic Surgery Author Type: Physician Type: Operative Report Filed: 03/31/2018 11:45 AM Note Text: [facility] - Operative Report CARLOS BUCKNER : 1960 AGE: 57. SEX: M PATIENT TYPE: I HOSP SVC: INTM LOCATION: [facility]– [place] ATTENDING PHYSICIAN: MIKE ROSE CSN NUMBER: [id number] DATE OF SURGERY/PROCEDURE: 03/28/2018 INCISION/PROCEDURE START TIME: 3:12 PM INCISION CLOSE/PROCEDURE END TIME: 9:46 PM PREOPERATIVE DIAGNOSIS: Severe 3-vessel coronary artery disease with NSTEMI. POSTOPERATIVE DIAGNOSIS: Severe 3-vessel coronary artery disease with NSTEMI, with probably ischemic mitral regurgitation, mild on the echo from [place], moderate in the OR, but significantly improved following revascularization back to mild to perhaps less than 1+. The patient had the expected severe diffuse disease. SURGEON: Mike Rose MD PACKAGE PICK UP: 1. Larry Harvey SA, and willa BAXTER. 2Mckenna Bradley SA. SURGERY/PROCEDURE: Coronary artery bypass grafting x4 with a pedicled left internal mammary artery to the anterior descending coronary, saphenous vein graft to the diagonal branch, saphenous vein graft to the main obtuse marginal branch of the circumflex, and saphenous vein graft to the posterolateral continuation of the right coronary artery after high origin of the PDA branch. ANESTHESIA: General endotracheal. INDICATIONS: This patient is an unhealthy 57-year-old male, appearing much older than his stated age, with diabetes, obesity, impaired ventricular function, NSTEMI, catheterization at [place] after loading with Plavix, who was transferred to [facility]. The patient underwent preoperative evaluation and preparation, was brought to surgery today for revascularization. The findings at time of surgery showed that the mitral regurgitation on prepump intra-op echo appeared to be worse than alluded to from [place] echo. Notably, this was significantly improved after surgical revascularization. The right coronary artery was at least a 3-mm vessel and was in good shape considering it was probably long-standing totally occluded proximally. The obtuse marginal branch had diffuse circumferential plaque, but was again a sizable vessel 2.5-2.75. The anterior descending was probably 3 mm vessel with mild distal disease. This diagonal branch was only 1.5-1.75 mm vessel with diffuse plaque. The vein was of good quality to the OM and the right coronary. Vein was of fair quality to the diagonal. QUIJANO was greater than 2 mm vessel with excellent flow. Again, as noted above post pump ventricular function was improved, especially in the circumflex and right coronary distributions where we had had significant hypokinesis prior. Mitral regurgitation was also improved even early after revascularization. DESCRIPTION OF PROCEDURE: The patient was brought to the operating room and placed on the operative table in supine position. Intravenous access was obtained. Intra-arterial access obtained. The initially marked and discussed right radial site was abandoned once intraoperative JUAN CARLOS was established and the findings were as noted above. With significant decrease in LV function and mitral regurgitation, decided not to add extra time, complexity, and risk with radial artery utilization. General endotracheal anesthesia induced. After placement of further appropriate monitors, lines, and tubes including intraoperative JUAN CARLOS, (reviewed as above) the patient's neck, chest, abdomen, groins, thighs, legs, and feet were prepped and draped in surgical fashion. Heart was exposed through median sternotomy incision while left greater saphenous vein was harvested endoscopically from the left leg and left thigh. The QUIJANO was taken down as a pedicled graft from behind the left chest wall. Pericardium was opened and cradled. There were some adhesions to the ascending aorta, which were taken down with the Bovie and scissor dissection. The patient had a very large, fat encased heart; however, the coronary vessels were still on the surface. Heart size and function looked improved grossly and on JUAN CARLOS after revascularization. The distal ascending aorta was cannulated for arterial return from the pump as was the inferior vena cava via the right atrial appendage for venous drainage of the heart with a 2-stage venous cannula. Method of myocardial protection employed was blood cardioplegia given antegrade fashion, given down the vein grafts via an Octopus device, and given retrograde via coronary sinus catheter. Venting was accomplished via the distal ascending aortic cardioplegic venting apparatus. Aorta was crossclamped. Cardioplegia was administered. The first graft to be done was the posterolateral main continuation of the right coronary artery. Arteriotomy was made. This was a sizable vessel in relatively good shape, longstanding occlusion. A segment of saphenous vein was sutured to the arteriotomy with running 7-0 Prolene. Next graft to be done was the obtuse marginal. We went proximally in between circumferential plaques to a blue spot. Sizable vessel. Second saphenous vein was sutured to the arteriotomy with running 7- 0 Prolene. The next graft done was the diagonal branch. This was the smallest of his vessels, probably only 1.5 mm, but still graftable with significant stenosis. The third segment of saphenous vein was sutured to the arteriotomy in diagonal with running 7-0 Prolene. Next, the left internal mammary was passed through a rent in the pericardium lateral to the thymic fat pad. Arteriotomy was made, the QUIJANO was cut back as we had good length. The QUIJANO was then sutured to the arteriotomy with running 7-0 Prolene. Bulldog clamp was briefly removed and there appeared to be significant bleeding from an unidentified side branch in the proximal portion of the pacheco. This was handled with a 7-0 stitch; however, I was not comfortable with possible changes in the pacheco of the QUIJANO and the junction of the QUIJANO and pacheco portion, and had more than adequate length, so this anastomosis was taken down and the QUIJANO was then cut back again to good segment with no branches anywhere. The QUIJANO was then sutured to the arteriotomy again with running 7-0 Prolene. Bulldog clamp was released at this time and good filling was seen distally with no bleeding. Bulldog clamp was replaced. Pedicle was tacked to the epicardium on both sides of the anterior descending with 5-0 silk. Attention was then turned to the ascending aorta. The 3 proximal anastomoses were constructed with some difficulty as the patient had a very foreshortened aorta with a large fat encased heart. 3 proximals were completed. As we were completing the third proximal, warm retrograde blood was given via the coronary sinus catheter and the bulldog clamp was removed from the QUIJANO to allow reperfusion, aid in rewarming, and de-airing the ascending aorta. The last proximal was completed, tied, and marked in standard fashion. Aortic cross-clamp was removed. The patient was then allowed continuous 15 minutes of reperfusion and rewarming. During this time, retrograde coronary sinus catheter was removed, pursestring suture was tied, reinforced with 4-0 Prolene. Single right ventricular epicardial pacing wire was placed in surface right ventricle. Ground wire was placed in the skin. These were not needed since he was in his own sinus rhythm. They were later tested and found to function. Once we had allowed greater than 15 minutes of reperfusion and rewarming, we then had temporary ventilation of the lungs and allowed cardiac ejections to check for de-airing. De-airing was deemed adequate by Anesthesia with JUAN CARLOS. Cardiac ejections and ventilations were held, cardioplegic venting apparatus was removed, and the Prolene suture tied. We then prepared to separate from cardiopulmonary bypass on low-dose inotropic support. The patient fairly well. The venous cannula was removed, pursestring suture secured. After obtaining adequate cardiac function with stable hemodynamics, protamine was then administered to reverse the heparin. As we were completing the protamine dose, arterial cannula was removed, pursestring sutures tied, ad reinforced with 4-0 Prolene. I should note that from the beginning of the case from the very 1st incision in the chest, all the way through all layers especially including the chest wall, the patient was quite oozy and anywhere we bovied, especially in and around the sternum, tended to rebleed frequently. The left pleural space was drained with 32-Cook Islander chest tube. Mediastinum was drained with a 32 PleuraFlow special mediastinal catheter. After obtaining adequate hemostasis with continued hemodynamic stability and checking for hemostasis multiple times, we then prepared to close. Right atrial pursestring was tied. Second tie was placed around the base of right appendage. The sternum was then approximated with multiple stainless steel wires. Remainder of chest incision was closed in layers with absorbable suture. Dermabond was placed. Small endoscopic vein harvest incisions were closed as appropriate with absorbable suture. Dermabond was placed. Chest tubes connected to water-seal suction drain device. Patient was then transported directly to the cardiac surgery intensive care unit after correct sponge, needle, and instrument count. Mike Rose MD PS:[id number] /[id number] CONSULT Observed: 03/28/2018 Status: COMPLETED Source: [facility] 11:53 PM CLINIC OTHER CAMPUS REPOSITORY O ID: [id number] Author: Ravi Myrick Service: Critical Care Author Type: Physician Type: Consults Filed: 03/29/2018 2:28 AM Note Text: CRITICAL CARE CONSULT NOTE SERVICE DATE: 03/28/2018 SERVICE TIME: 11:54 PM REASON FOR CONSULT: S/P Surgery REQUESTING PHYSICIAN: Milton? ADMITTING PROVIDER: Eliazar Lutz SERVICE DATE: 03/28/2018 SERVICE TIME: 11:54 PM Admission Date: 03/21/2018 AGE: [age] year old LOS: 7 days Subjective 57 year old male with PMH as listed below who presented from OSH with chest pain and NSTEMI. Further workup revealed 3 vessel disease and a CABG was planned after his Plavix washed out. ROS: Not possible 2/2 mental status PAST MEDICAL HISTORY Diagnosis Date - CAD (coronary artery disease) - HLD (hyperlipidemia) - HTN (hypertension) 06/10/2017 - Obstructive sleep apnea - Type II or unspecified type diabetes mellitus without mention of complication, not stated as uncontrolled PAST SURGICAL HISTORY Procedure Laterality Date - COLONOSCOP W/ OR W/O BRSH SPEC 01/17/15 Colonoscopy - KIDNEY SURGERY HX - LITHOTRIPSY PROC UNILATERAL 2007 left side done in [place] - PAST SURGICAL HISTORY OF dog bite age 5 - PAST SURGICAL HISTORY OF chainsaw injury Social History Marital status: Spouse name: ramana Years of education: Number of children: 2 Occupational History 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 13 and 15 in 2011 No TV in house FAMILY HISTORY Problem Relation Age of Onset - other (polio) Mother - Emphysema Father - Diabetes Maternal Grandfather - COPD Paternal Grandmother - COPD Paternal Grandfather Objective VITAL SIGNS (last 24hrs min/max): Temp Av.3 ?C (97.4 ?F) Min: 36 ?C (96.8 ?F) Max: 36.8 ?C (98.2 ?F) Pulse Av.4 Min: 72 Max: 107 Arterial BP 1 Min: 90/60 Max: 137/71 Cuff BP Min: 105/59 Max: 124/65 Pain Score: 7/10 Vital signs reviewed. BP 117/64 Pulse 107 Temp (Src) 97.5 (Temporal Artery) Resp 19 Ht 5' 8 (1.73m) Wt 232 lb (105.2kg) SpO2 93% BMI 35.28 kg/(m2). Temp (24hrs), Av.3 ?C (97.4 ?F), Min:36 ?C (96.8 ?F), Max:36.8 ?C (98.2 ?F) NET FLUID BALANCE Intake/Output Summary (Last 24 hours) at 03/28/18 6460 Last data filed at 03/28/18 2330 Gross per 24 hour Intake 0 ml Output 418 ml Net -418 ml MEDICATIONS Current Facility-Administered Medications: desmopressin 31.56 mcg in NaCl 0.9% 50 mL (DDAVP) 0.3 mcg/kg/dose INTRAVENOUS ONCE insulin regular iv infusion 250 units in NaCl 0.9% 250 mL - AK CARD SURG NOMOGRAM 0-12 Units/hr INTRAVENOUS CONTINUOUS insulin regular human iv bolus 10 Units 10 Units INTRAVENOUS PRN dextrose 50% in water 25 mL syringe 12.5 g INTRAVENOUS PRN dexmedetomidine 400 mcg in NaCl 0.9% 100 mL (PRECEDEX) 0.2- 0.7 mcg/kg/hr INTRAVENOUS CONTINUOUS potassium chloride iv piggyback 20 mEq in sterile water 100 mL 20 mEq INTRAVENOUS PRN magnesium sulfate in water 2 g in sterile water 50 ml 2 g INTRAVENOUS PRN(NO DISPENSE) acetaminophen 650 mg tab(s) (TYLENOL) 650 mg ORAL q 6 H PRN NaCl 0.9% iv infusion 50 mL/hr INTRAVENOUS CONTINUOUS albuterol 2.5 mg /3 mL (0.083 %) 2.5 mg (PROVENTIL) 2.5 mg INHALATION q 2 H PRN niCARdipine 40 mg in NaCl 0.9% 200 mL infusion (CARDENE) 5- 10 mg/hr INTRAVENOUS CONTINUOUS EPINEPHrine 4 mg in NaCl 0.9% 250 mL 2 mcg/min INTRAVENOUS PRN(NO DISPENSE) PHENYLephrine iv infusion 10 mg in NaCl 0.9% 250 mL (UMBERTO-SYNEPHRINE) 0-100 mcg/min INTRAVENOUS CONTINUOUS ceFAZolin iv piggyback 2 g in D5W (iso-osmotic) 100 mL (ANCEF) 2 g INTRAVENOUS q 6 HR ondansetron (PF) 4 mg injection (ZOFRAN) 4 mg INTRAVENOUS q 6 H PRN calcium chloride 1 g in D5W 100 mL 1 g INTRAVENOUS PRN(NO DISPENSE) midazolam (PF) 2 mg injection (VERSED) 2 mg INTRAVENOUS q 6 H PRN oxyCODONE-acetaminophen 5-325 mg 1-2 tablet (PERCOCET) 1-2 tablet ORAL q 4 H PRN morphine 2-4 mg injection 2-4 mg INTRAVENOUS q 1 H PRN albumin (5%) 25 g infusion 25 g INTRAVENOUS QID PRN NaCl 0.9% iv infusion 250 mL INTRAVENOUS QID PRN Lines, Drains, and Airways Line Peripheral Assessment Short Left Forearm 20 Gauge -- days Arterial Line 03/28/18 1420 Arterial Line Left Radial less than 1 day Central Line Double Lumen 03/28/18 1435 Pulmonary Artery Catheter Right Neck Through Introducer less than 1 day Peripheral 03/28/18 1415 Assessment Left Hand 18 Gauge less than 1 day Drain Chest Tube 03/28/18 1851 Assessment Midline Anterior Mediastinal 32 Fr Tube #1 less than 1 day Chest Tube 03/28/18 1851 Assessment Midline Anterior Pleural 32 Fr Tube #2 less than 1 day Indwelling Urinary Catheter 03/28/18 1445 Assessment Temperature Monitoring 16 Fr less than 1 day Airway Airway Fenestrated 03/28/183 less than 1 day PHYSICAL EXAM PERFORMED: Constitutional: Lying in bed, appears comfortable HEENT: NCAT, pupils reactive Cardiovascular: Regular rhythm Respiratory: Breat sounds equal bilaterally, midline sternal incision, chest tubes and pacer wires noted %FIO2 Min: 50 Max: 50 Abdomen: Soft and Nontender Extremities: Edema- No, Peripheral pulses present Neurologic: Sedated Respiratory/Nursing Documentation: O2 Therapy: Ventilator (03/28/182350) Invasive Ventilator Mode: Synchronized Intermittent Mandatory Ventilation;Pressure Support Ventilation (03/28/182212) Set Ventilator Respiratory Rate (BPM): 12 (03/28/182212) Total Respiratory Rate (BPM): 12 (03/28/182212) Tidal Volume Set (mL): 500 (03/28/182212) Exhaled Tidal Volume (mL): 554 (03/28/182212) Minute Volume (L): 5.59 (03/28/182212) Peak Inspiratory Pressure (cm H2O): 21 (03/28/182212) PEEP/CPAP (cm H2O): 5 (03/28/182212) HEMODYNAMIC DATA: Reviewed NUTRITION: Enteral Feeds: No NPO DATA: Diagnostic tests reviewed for today's visit, films/specimens were personally reviewed by me: Most recent labs and imaging results. LABS: Recent Labs 03/28/182204 WBC 17.86* RBC 3.43* HB 10.9* HCT 32.2* MCV 93.9 PLT 114* GLUC 153* BUN 14 CREAT 0.83 NA 145 K 4.0 CHLOR 116* CO2 19* CA 6.8* PTSEC 13.3* APTT 25.4 INR 1.30 MG 1.6 ABG: Recent Labs 10/220403/28/18202603/28/181945 PH 7.243* 7.308* 7.371 PO2 80.0* 181.0* 323.0* PCO2 45.1 -- -- Assessment/Plan IMPRESSION: Critical Care Documentation: The patient has the following organ/system impairment(s): Respiratory Insufficiency, Post operative 57 year old male with PMH of CAD, HTN, HLD, DM2 and TEOFILO on home CPAP presents with: CAD with NSTEMI s/p CABG x 4 03/28/2018 Acute hypoxic respiratory insufficiency, post operative Acute blood loss anemia, post operatively Leukocytosis 2/2 bypass PLAN: SAT and SBT later Would extubate to NIV Rest per CTS ICU PPx This patient has a high probability of sudden, clinically significant deterioration, which requires the highest level of physician preparedness to intervene urgently. I managed/supervised life or organ supporting interventions that required frequent physician assessment. I devoted my full attention to the direct care of this patient for the amount of time indicated below. Time I spent with family or surrogate(s) is included only if the patient was incapable of providing the necessary information or participating in medical decision making. Time devoted to teaching is not included. Discussed with staff Time spent providing critical care services: 30 minutes excluding procedures. SIGNATURE: Ravi Myrick MD PATIENT NAME: Carlos Buckner DATE: March 28, 2018 TIME: 11:54 PM BLOOD GAS ARTERIAL Collected: 03/28/2018 Status: F Source: [facility] 11:45 PM HEALTH SYSTEM REPOSITORY TYPE CODE TESTS RESULT OUT OF REFERENCE UNITS RANGE LAB TEMPA(LOIN C) Temperature 37.0 LAB PH(LOINC) 7.350-7.450 Low pH Arterial 7.300 LAB PCO2(LOINC 36.0-46.0 mm Hg ) PCO2 Arterial 38.4 LAB PO2(LOINC) 85.0-96.0 mm Hg Low PO2 Arterial 81.7 LAB HCO3A(LOIN 22.0-26.0 mEq/L C) Low HCO3- 18.5 LAB O2%A(LOINC 95.0-98.0 % ) O2% Sat Arterial 95.4 LAB BASEX(LOIN -2.5 to 2.5 mEq/L C) Base Excess -7.3 LAB FIO2(LOINC % ) FIO2 50 Performed By: #### ABG #### [facility] [address] [place] [id number] ANES POST Observed: 03/28/2018 Status: COMPLETED Source: [facility] 10:16 PM CLINIC OTHER CAMPUS REPOSITORY O ID: [id number] Author: Benjamin Camp Service: Anesthesiology Author Type: Physician Type: Anesthesia PostOp Filed: 03/28/2018 10:17 PM Note Text: POST ANESTHESIA EVALUATION NOTE SERVICE DATE: 03/28/2018 SERVICE TIME: *10:16 PM : 1960 Vitals: 03/27/18199903/28/18 0238 03/28/18 0821 03/28/18 1301 Temp: 36.5 ?C (97.7 ?F) 36.8 ?C (98.2 ?F) 36 ?C (96.8 ?F) 36.2 ?C (97.2 ?F) 03/28/18 0238 03/28/18 0821 03/28/18 1147 03/28/18 1304 BP: 105/59 124/65 108/64 117/64 03/27/18199903/28/18 0238 03/28/18 0821 03/28/18 1301 Pulse: 91 72 78 77 03/27/18199903/28/188 03/28/18 0821 03/28/18 1301 Resp: 18 18 19 13 03/27/18199903/28/18 0238 03/28/18 0821 03/28/18 1301 SpO2: 96% 98% 98% 99% Validated Vital Signs: Yes POST ANES STATUS: PACU/ICU Patient Condition: Stable Neurological Status: On intravenous sedation. Pulmonary Status: On invasive mechanical ventilation. Airway Control: Intubated on mechanical ventilation. Cardiovascular Status: Stable Pain: Adequately controlled Postoperative Nausea/Vomiting: No significant post operative nausea or vomiting Postoperative Hydration Status: Adequate. Intra-Operative Events: No Significant Anesthesia Events Anesthetic Complications: None Recommendation: Continue current plan of care and Further care per PACU/ICU/Floor team Other Remarks: SIGNATURE: Benjamin Camp MD PATIENT NAME: Carlos Buckner DATE: March 28, 2018 TIME: 10:16 PM PAGER/CONTACT #: [phone] EKG (AK,AV,EU,FV,HL,STACIA,MM,SP) Observed: Status: F Source: [facility] 03/28/2018 10:09 CLINIC OTHER PM CAMPUS REPOSITORY NAME : CARLOS BUCKNER PID : [id number] : 1960 Gender : Male Race : ORD : [id number] Procedure Date : Mar 28 2018 22:09 Edit Date : Mar 29 2018 08:37 Diagnosis:SINUS TACHYCARDIA RIGHTWARD AXIS BORDERLINE ECG NO PREVIOUS ECGS AVAILABLE Confirmed by MD Hendrix Anubhav ([id number]) on 03/29/2018 8:37:08 AM Ventricular Rate : 104 BPM Atrial Rate : 104 BPM P-R Interval : 192 ms QRS Duration : 86 ms Q-T Interval : 366 ms QTC Calculation(Bezet) : 481 ms P [place] : 64 degrees R [place] : 96 degrees T [place] : 25 degrees Test Reason : Post OP Location : 6 : [place] [address] Overread By : MD Hendrix Anubhav Editted By : MD Hendrix Anubhav Referred By : MIKE ROSE Acquired by : Ludivina Solis CHEST 1 VIEW Observed: 03/28/2018 Status: F Source: [facility] [facility] 10:08 PM HEALTH SYSTEM REPOSITORY Performed at [facility] APPROVED BY: NICOLE LEVY MD EXAMINATION: CHEST RADIOGRAPH (PORTABLE SINGLE SUPINE VIEW AP) Clinical History: Post-operative / post-procedure assessment, asymptomatic Comparison: 03/22/2018 RESULT: See impression. IMPRESSION: Lines, tubes, and devices: There is a endotracheal tube with the tip approximately 3.5 cm above the level of the sonia. There is a right IJ Stark-Nohelia catheter with tip in the proximal main pulmonary artery region. Enteric tube present with the tip in the proximal stomach. Left-sided chest tube with tip over the left mid chest. Median sternotomy wires. Lungs and pleura: No pneumothorax identified on the supine film. Low level of inspiration with crowded central bronchovascular markings. No focal consolidation or visualized effusion. Cardiomediastinal silhouette: Within normal limits for technique and level of inspiration. BLOOD GAS ARTERIAL Collected: 03/28/2018 Status: F Source: [facility] [facility] 10:05 PM HEALTH SYSTEM REPOSITORY TYPE CODE TESTS RESULT OUT OF REFERENCE UNITS RANGE LAB FIO2(LOINC % ) FIO2 50 LAB TEMPA(LOIN C) Temperature 36.3 LAB PH(LOINC) 7.350-7.450 Low pH Arterial 7.243 LAB PCO2(LOINC 36.0-46.0 mm Hg ) PCO2 Arterial 45.1 LAB PO2(LOINC) 85.0-96.0 mm Hg Low PO2 Arterial 80.0 LAB HCO3A(LOIN 22.0-26.0 mEq/L C) Low HCO3- 19.2 LAB O2%A(LOINC 95.0-98.0 % ) Low O2% Sat Arterial 94.3 LAB BASEX(LOIN -2.5 to 2.5 mEq/L C) Base Excess -8.0 Performed By: #### ABG #### [facility] [address] [place], [place] [address] HEMOGRAM Collected: 03/28/2018 Status: F Source: [facility] [address] [place] [address] SYSTEM REPOSITORY TYPE CODE TESTS RESULT OUT OF REFERENCE UNITS RANGE LAB WBC(LOINC) 4.23-9.07 thou/cmm High WBC 17.86 LAB RBC(LOINC) 4.63-6.08 mil/cmm Low RBC 3.43 LAB HGB(LOINC) 13.7-17.5 g/dL Low Hgb 10.9 LAB HCT(LOINC) 40.1-51.0 % Low Hct 32.2 LAB MCV(LOINC) 83.2-95.6 fl MCV 93.9 LAB MCH(LOINC) 25.7-32.2 pg MCH 31.8 LAB MCHC(LOINC) 32.3-36.5 % MCHC 33.9 LAB RDW(LOINC) 11.6-14.4 % RDW 12.1 LAB RDWSD(LOINC 36.1-45.8 fl ) RDW SD 41.7 LAB PLT(LOINC) 141-365 thou/cmm Low Platelet 114 LAB MPV(LOINC) 8.7-12.0 fl MPV 10.2 Performed By: #### CBC1 #### [facility] [address] [place], [place] [address] BASIC PANEL Collected: 03/28/2018 Status: F Source: [facility] [address] [place] [address] SYSTEM REPOSITORY TYPE CODE TESTS RESULT OUT OF REFERENCE UNITS RANGE LAB NA(LOINC) 136-145 mEq/L Sodium Blood 145 LAB K(LOINC) 3.5-5.1 mEq/L Potassium Blood 4.0 LAB CL(LOINC) 98-107 mEq/L Chloride High Blood 116 LAB CO2(LOINC) 21-32 mEq/L Low CO2 Blood 19 LAB GLU(LOINC) 70-99 mg/dL Glucose High Blood 153 LAB BUN(LOINC) 7-18 mg/dL BUN Blood 14 LAB CREA(LOINC 0.67-1.17 mg/dL ) Creatinine Blood 0.83 LAB CA(LOINC) 8.5-10.1 mg/dL Low Calcium Blood 6.8 LAB ANGAP(LOIN 8-16 C) Anion Gap 14 Performed By: #### P8 #### [facility] [address] [place] [address] MAGNESIUM BLOOD Collected: 03/28/2018 Status: F Source: [facility] 10:05 HEALTH SYSTEM REPOSITORY TYPE CODE TESTS RESULT OUT OF REFERENCE UNITS RANGE LAB MAG(LOINC) 1.6-2.6 mg/dL Magnesium Blood 1.6 Performed By: #### MAG #### [place] [address] PROTIME Collected: 03/28/2018 Status: F Source: [facility] 10:05 HEALTH SYSTEM REPOSITORY TYPE CODE TESTS RESULT OUT OF REFERENCE UNITS RANGE LAB PTI(LOINC) 9.7-13.0 sec Prothrombin High Time 13.3 LAB INR(LOINC) 0.90-1.30 INR 1.30 Result Comment: Note: Reference Range Change Vitamin K Antagonist (VKA) Therapeutic Range: INR 2 to 3 (Target INR of 2.5) Note: For patients treated with VKA drugs, such as warfarin, the [place] [employer] 2012 Guideline recommends a therapeutic INR range of 2 to 3 (target INR of 2.5). This recommendation includes high-risk patients with antiphospholipid syndrome with previous arterial or venous thromboembolism, current-generation mechanical or bioprosthetic aortic heart valve replacement. VKA Therapeutic Range for some Mechanical Valve Replacement: INR 2.5 to 3.5 (Target INR of 3) Note: Patients with mechanical aortic valve replacement and additional risk factors for thromboembolic events (atrial fibrillation, previous thromboembolism, LV dysfunction, hypercoagulable conditions) or an older generation mechanical AVR (i.e., ball in-Cage) or any mechanical MVR should have a INR therapeutic range of 2.5 to 3.5 target INR of 3). Stefanie GH, et al. Chest 2012; 141:7S-47S Brie RA, et al. JAC 2017; 70: 252-289 Performed By: #### PT #### [facility] [address] [place] [id number] ACTIVATED PTT Collected: 03/28/2018 Status: F Source: [facility] 10:05 PM HEALTH SYSTEM REPOSITORY TYPE CODE TESTS RESULT OUT OF REFERENCE UNITS RANGE LAB APTT(LOINC 23.0-32.4 sec ) Activated PTT 25.4 Result Comment: Note: New Reference Range Unfractionated Heparin Therapeutic Ranges: Standard Heparin Nomogram: 53 to 78 seconds (anti-Xa level of 0.3 to 0.7 U/mL) Low Dose/ACS Nomogram: 49 to 67 seconds (anti-Xa level of 0.2 to 0.5 U/mL) Stroke Treatment Nomogram: 49 to 67 seconds (anti-Xa level of 0.2 to 0.5 U/mL) Note: The APTT therapeutic range has been determined for the current lot of laboratory APTT reagent in use throughout the [facility]. Performed By: #### APTT #### [facility] [address] [place] [address] PROGRESS Observed: 03/28/2018 Status: COMPLETED Source: [facility] 9:34 PM CLINIC OTHER CAMPUS REPOSITORY HNO ID: [id number] Author: Mike Rose Service: Thoracic Surgery Author Type: Physician Type: Progress Notes Filed: 03/28/2018 9:39 PM Note Text: CARDIOTHORACIC BRIEF OP NOTE LOG ID: [id number] SURGERY/PROCEDURE DATE: 03/28/2018 INCISION/PROCEDURE START TIME: 3:12 PM INCISION CLOSE/PROCEDURE END TIME: SURGEON(S) AND PACKAGE PICK UP(S): Surgeon(s) and Role: * Mike Rose - Primary Physician Cathode Builder: Len Reid (Pa) Premix Operator Concentrate: Tamera () SA Cherrie; Katharina () SA Kirk Premix Operator Concentrate (Relief): Jeovany () SA Candice PROCEDURES AND ANESTHESIA: CABG X 4 pedicled QUIJANO to LAD, SVG to rca, svg to OM, svg to diagonal w EVH. Procedure(s) and Anesthesia Type: * BYPASS GRAFT ARTERY CORONARY ON-PUMP USING VENOUS GRAFT(S) AND ARTERIAL GRAFT(S) THREE VENOUS GRAFTS - General Great Saphenous Vein, Left , Percutaneous endoscopic ANESTHESIA: General BRIEF FINDINGS: MR mild to moderate--ischemic. PREOPERATIVE DIAGNOSIS: coronary artery disease and NSTEMI POSTOPERATIVE DIAGNOSIS: Same with improvement in MR post revascularization ESTIMATED BLOOD LOSS: 200ml SPECIMENS: None COMPLICATIONS: None SIGNATURE: Mike Rose MD PATIENT NAME: Carlos Buckner DATE: March 28, 2018 TIME: 9:35 PM PAGER/CONTACT #: [phone] ACT ARTERIAL PANEL Collected: 03/28/2018 Status: F Source: [facility] (I-STAT) 8:26 PM HEALTH SYSTEM REPOSITORY TYPE CODE TESTS RESULT OUT OF REFERENCE UNITS RANGE LAB ACTAI(LOINC 74-137 sec ) Kaolin ACT ( 109 i-STAT) Performed By: #### ACTIA #### [place] [address] CG8 ARTERIAL PANEL Collected: 03/28/2018 Status: F Source: [facility] (I-STAT) 7:13 PM HEALTH SYSTEM REPOSITORY TYPE CODE TESTS RESULT OUT OF REFERENCE UNITS RANGE LAB PHISA(LOIN 7.350-7.450 C) pH (i-STAT) 7.396 LAB PC2IA(LOIN 35.0-45.0 mm Hg C) PCO2 (i-STAT) 39.8 LAB PO2IA(LOIN 80.0-105.0 mm Hg C) PO2 High (i-STAT) 326.0 LAB HC3IA(LOIN 22.0-26.0 mmol/L C) HCO3- (i-STAT) 24.5 LAB BSXIA(LOIN -2.0 to 3.0 mmol/L C) Base Excess (i-STAT) 0.0 LAB SO2IA(LOIN 95.0-98.0 % C) O2% Sat. High (i-STAT) 100.0 LAB TC2IA(LOIN 23-27 mmol/L C) Total CO2 (i-STAT) 26 LAB GLUIA(LOIN 70-99 mg/dL C) Glucose High (i-STAT) 193 LAB NAI2A(LOIN 138-146 mmol/L C) Sodium (i-STAT) 141 LAB KIS2A(LOIN 3.5-4.9 mmol/L C) Potassium 4.5 (i-STAT) LAB ICALA(LOIN 4.5-5.3 mg/dL C) Low Ionized Calcium (iSTAT) 4.4 LAB HCTIA(LOIN 38-51 %PCV C) Low Hematocrit 28 (i-STAT) LAB HGBIA(LOIN 12.0-17.0 g/dL C) Low Hemoglobin 9.5 (i-STAT) Performed By: #### CG8IA #### [facility] [address] [place], [place] [address] CG8 VENOUS PANEL Collected: 03/28/2018 Status: F Source: [facility] (I-STAT) 5:13 PM HEALTH SYSTEM REPOSITORY TYPE CODE TESTS RESULT OUT OF REFERENCE UNITS RANGE LAB PHISV(LOIN 7.310-7.410 C) pH (i-STAT) 7.360 LAB PC2IV(LOIN 41.0-51.0 mm Hg C) Low PCO2 (i-STAT) 40.9 LAB PO2IV(LOIN 20.0-50.0 mm Hg C) PO2 (i-STAT) 41.0 LAB HC3IV(LOIN 23.0-28.0 mmol/L C) HCO3- (i-STAT) 23.1 LAB BSXIV(LOIN -2.0 to 3.0 mmol/L C) Base Excess (i-STAT) -2.0 LAB SO2IV(LOIN 35.0-85.0 % C) O2% Sat. (i-STAT) 74.0 LAB TC2IV(LOIN 24-29 mmol/L C) Total CO2 (i-STAT) 24 LAB GLUIV(LOIN 70-99 mg/dL C) Glucose High (i-STAT) 161 LAB NAI2V(LOIN 138-146 mmol/L C) Sodium (i-STAT) 138 LAB KIS2V(LOIN 3.5-4.9 mmol/L C) Potassium 4.3 (i-STAT) LAB ICALV(LOIN 4.5-5.3 mg/dL C) Ionized Calcium (iSTAT) 4.5 LAB HCTIV(LOIN 38-51 %PCV C) Low Hematocrit 26 (i-STAT) LAB HGBIV(LOIN 12.0-17.0 g/dL C) Low Hemoglobin 8.8 (i-STAT) Performed By: #### [id number] #### [facility] [address] [place], [place] [address] RBC PRODUCTS Collected: 03/28/2018 Status: F Source: [facility] 12:14 PM HEALTH SYSTEM REPOSITORY TYPE CODE TESTS RESULT OUT OF REFERENCE UNITS RANGE LAB UNIT1(LOINC ) Xmatch Unit 1 see below Result Comment: Compatible LAB UNIT2(LOINC) Xmatch Unit 2 see below Result Comment: Compatible LAB UNIT3(LOINC) Xmatch Unit 3 see below Result Comment: Compatible Performed By: #### RBCPS #### [facility] [address] [place], [place] [address] ANES PREOP Observed: 03/28/2018 Status: COMPLETED Source: [facility] 12:12 PM CLINIC OTHER CAMPUS REPOSITORY O ID: [id number] Author: Yoel Madsen Service: Anesthesiology Author Type: Physician Type: Anesthesia PreOp Filed: 03/28/2018 1:48 PM Note Text: ANESTHESIOLOGY DAY OF SURGERY NOTE SERVICE DATE: 03/28/2018 SERVICE TIME: 1:47 PM : 1960 Procedure(s) (LRB): BYPASS GRAFT ARTERY CORONARY ON-PUMP USING VENOUS GRAFT(S) AND ARTERIAL GRAFT(S) THREE VENOUS GRAFTS (N/A) Surgeon(s): Mike Rose Estimated body mass index is 35.28 kg/m? as calculated from the following: Height as of this encounter: 172.7 cm (5' 8). Weight as of this encounter: 105.2 kg (232 lb). Most recent hematocrit and potassium results: Hematocrit 37.9 03/28/2018 Potassium 3.8 03/28/2018 ANES DOS/PREOP NOTE: Vitals: 03/28/18 1135 03/28/18 1147 03/28/18 1301 03/28/18 1304 BP: 108/64 117/64 Pulse: 77 Resp: 13 Temp: 36.2 ?C (97.2 ?F) TempSrc: Temporal Artery SpO2: 99% Weight: 105.2 kg (232 lb) Height: ACTIVE PROBLEM LIST Hyperlipemia Teoflio (Obstructive Sleep Apnea) Dm (Diabetes Mellitus), Type 2, Uncontrolled (Hcc) Erectile Dysfunction Associated With Type 2 Diabetes Mellitus (Hcc) Hypertriglyceridemia Htn (Hypertension) Chest Pain Cad (Coronary Artery Disease) Acs (Acute Coronary Syndrome) ([facility]) Nstemi (Non-St Elevated Myocardial Infarction) ([facility]) PAST MEDICAL HISTORY Diagnosis Date - CAD (coronary artery disease) - HLD (hyperlipidemia) - HTN (hypertension) 06/10/2017 - Obstructive sleep apnea - Type II or unspecified type diabetes mellitus without mention of complication, not stated as uncontrolled PAST SURGICAL HISTORY Procedure Laterality Date - COLONOSCOP W/ OR W/O BRSH SPEC 01/17/15 Colonoscopy - KIDNEY SURGERY HX - LITHOTRIPSY PROC UNILATERAL 2006 left side done in [place] - PAST SURGICAL HISTORY OF dog bite age 5 - PAST SURGICAL HISTORY OF chainsaw injury FAMILY HISTORY Problem Relation Age of Onset - other (polio) Mother - Emphysema Father - Diabetes Maternal Grandfather - COPD Paternal Grandmother - COPD Paternal Grandfather Social History: Social History Substance Use Topics - Smoking status: Never Smoker - Smokeless tobacco: Never Used - Alcohol use No No current facility-administered medications on file prior to encounter. Current Outpatient Prescriptions on File Prior to Encounter: atorvastatin (LIPITOR) 80 mg tablet TAKE ONE TABLET BY MOUTH ONCE DAILY empagliflozin (JARDIANCE) 25 mg tablet Take 1 tablet by mouth once daily. glimepiride (AMARYL) 4 mg tablet Take 1 tablet by mouth twice daily with meals. lisinopril 2.5 mg tablet Take 1 tablet by mouth once daily. metFORMIN (GLUCOPHAGE) 1,000 mg tablet Take 1 tablet by mouth twice daily with meals. blood sugar diagnostic (BLOOD GLUCOSE TEST) test strip Test blood sugar(s) 2x daily. Dx: E11.65. Insulin: No Ibuprofen 200 mg cap Take 200 mg by mouth once daily. Blood-Glucose Meter monitoring kit Glucose Meter of Choice - Kit - Dx: Type 2 DM - Uncontrolled E11.65 (per insurance) Lancets lancets Test blood sugar(s) 2x daily. Dx: E11.65. Insulin: No COMPOUNDED PRESCRIPTION CPAP @ 8 cm of water with humidification. Mask (per patient preference) optional chin strap (if indicated) , filters, tubing, humidifier and lifetime supplies. Dx. TEOFILO 327.23 Current Facility-Administered Medications: [MAR Hold due to Transfer] lactated ringers infusion 75 mL/hr INTRAVENOUS CONTINUOUS Mike Rose Last Rate: 75 mL/hr at 03/28/18 0941 75 mL/hr at 03/28/18 0941 [MAR Hold due to Transfer] heparin 3,000 Units in NaCl 0.9% 500 mL irrigation 3,000 Units IRRIGATION ONE TIME Mike Rose [JUL Hold due to Transfer] PHENYLephrine 20 mg in NaCl 0.9% 250 mL (NEOSYNEPHRINE) 25-300 mcg/min INTRAVENOUS ONE TIME Mike Rose [JUL Hold due to Transfer] aminocaproic acid 10 g in NaCl 0.9% 250 mL (AMicAR) 1 g/hr INTRAVENOUS ONE TIME Mike Rose [JUL Hold due to Transfer] dexmedetomidine 400 mcg in NaCl 0.9% 100 mL (PRECEDEX) 0.2-0.7 mcg/kg/hr INTRAVENOUS ONE TIME Mike Rose [JUL Hold due to Transfer] EPINEPHrine 4 mg in NaCl 0.9% 250 mL 0.5-10 mcg/min INTRAVENOUS ONE TIME Mike Rose [JUL Hold due to Transfer] insulin regular iv infusion 250 units in NaCl 0.9% 250 mL - AK CARD SURG NOMOGRAM 0-12 Units/hr INTRAVENOUS ONE TIME Mike Rose [JUL Hold due to Transfer] nitroglycerin 100 mg in D5W 250 mL 5-20 mcg/min INTRAVENOUS ONE TIME Mike Rose [JUL Hold due to Transfer] PHENYLephrine iv infusion 10 mg in NaCl 0.9% 250 mL (UMBERTO-SYNEPHRINE) 0-100 mcg/min INTRAVENOUS ONE TIME Mike Rose [JUL Hold due to Transfer] anticoagulant CPDA-1 39 mL, potassium chloride 36 mEq, sodium bicarbonate 45 mEq, Lidocaine HCl(PF) 180 mg in NaCl 0.9% 250 mL (CARDROPLEGIA SOLUTION - BAG 1) INTRACAVITY ONE TIME Mike Rose [JUL Hold due to Transfer] potassium chloride 25 mEq, Lidocaine HCl(PF) 100 mg in NaCl 0.9% 500 mL (CARDIOPLEGIA SOLUTION - BAG 2) INTRACAVITY ONE TIME Mike Rose [JUL Hold due to Transfer] insulin lispro 12 Units pen (rapid acting) (HumaLOG KWIKPEN) 12 Units SUBCUTANEOUS w MEALS Shazia Midha 12 Units at 03/27/18 1738 [MAR Hold due to Transfer] insulin regular iv infusion 250 units in NaCl 0.9% 250 mL - AK CARD SURG NOMOGRAM 0-12 Units/hr INTRAVENOUS CONTINUOUS Shazia Midha [MAR Hold due to Transfer] insulin detemir U-100 30 Units injection (long acting) (LEVEMIR) 30 Units SUBCUTANEOUS DAILY (8 AM) Ifeoma Ciltea 30 Units at 03/28/18 0830 [MAR Hold due to Transfer] insulin lispro pen (rapid acting) (HumaLOG KWIKPEN) SUBCUTANEOUS w MEALS Ifeoma Ciltea 1 Units at 03/28/18 1200 [JUL Hold due to Transfer] aspirin 81 mg chewable tab(s) 81 mg ORAL DAILY (6 AM) Alex (Digital Media Producer) TOMAS Ortega.[employer] 81 mg at 03/28/18 0509 [JUL Hold due to Transfer] 0.9% NaCl 3-5 mL 3-5 mL INTRAVENOUS q 12 H Eliazar Lutz 5 mL at 03/28/18 0941 [JUL Hold due to Transfer] atorvastatin 80 mg tab(s) (LIPITOR) 80 mg ORAL AT BEDTIME Veronica Tetyuk 80 mg at 03/27/182003 [MAR Hold due to Transfer] dextrose 40 % 15 g 15 g ORAL PRN Veronica Tetyuk Or [JUL Hold due to Transfer] glucagon 1 mg injection (GLUCAGEN) 1 mg INTRAMUSCULAR PRN Veronica Tetyuk Or [JUL Hold due to Transfer] dextrose 50% in water 25 mL syringe 12.5 g INTRAVENOUS PRN Veronica Tetyuk [MAR Hold due to Transfer] nitroglycerin sublingual 0.4 mg tab(s) (NITROQUICK) 0.4 mg SUBLINGUAL PRN Veronica Tetyuk [JUL Hold due to Transfer] metoprolol tartrate (short acting) 25 mg tab(s) (LOPRESSOR) 25 mg ORAL q 12 H Veronica Tetyuk 25 mg at 03/28/18 0825 [MAR Hold due to Transfer] losartan 25 mg tab(s) (COZAAR) 25 mg ORAL DAILY Veronica Tetyuk 25 mg at 03/28/18 0826 Allergies: ALLERGIES Allergen Reactions - Oysters Rash, Itching - Shellfish Containin* Rash DOS EXAM: Adequate NPO Status: Yes Anesthetic Risks, Benefits, Alternatives, Personnel and Consent Discussed: Yes Patient agrees to proceed: Yes Previous Anesthesia: No history of adverse event Airway Assessment: MP 3; Neck ROM: Full ROM without neurologic symptoms; Airway Evaluation: Thick neck Symptoms of Sleep Apnea: Hypertension, Age over 50 (57 year old), Neck circumference > 15.75 inches and Male gender Dentition: Teeth intact Additional Physical Exam: Lungs: Patient health status unchanged since recent history and physical. See history and physical for exam findings. Cardiac: Patient health status unchanged since recent history and physical. See history and physical for exam findings. Additional Pertinent Findings: N/A Blood Products: Will accept Blood/Blood Products Anesthetic Plan: General Anesthetic Monitoring: Standard ASA Monitors, Invasive Hemodynamic Monitoring Arterial line, Introducer, PA Catheter, JUAN CARLOS - patient denies history of stricture or varices and CVP, Potential Prolonged Intubation and Potential ICU Admission Postop Pain Management Plan: Parenteral or Oral ASA Class: 4 Other Medical Problems: See cardiac studies below HLD, HTN TEOFILO with CPAP NIDDM2 - has been on insulin this admission, last blood glucose 170 this AM (1117) Presented with chest pain at OSH 1.5 weeks prior. Found to have 3 vessel disease on cardiac cath. Loaded with plavix and sent to [facility]. Recent Labs 03/28/18 0243 03/27/18 0530 WBC 4.52 5.29 HB 13.0* 14.4 HCT 37.9* 41.3 PLT 174 192 INR 1.03 -- NA 137 138 K 3.8 3.9 CHLOR 104 104 CO2 26 25 BUN 17 19* CREAT 0.84 0.95 GLUC 198* 160* CA 8.5 8.4* Antibody Screen Date Value Ref Range Status 03/28/2018 NEGATIVE Final Chronic Beta Hector medication administered within 24 hours: Yes Also received ASA this AM (03/28/2018 I have interviewed and examined the patient. I have reviewed the medical record and/or the pre-anesthesia evaluation, pertinent labs, and test results. Significant changes in the patient's condition since the History and Physical, not otherwise documented in primary service progress notes: No This contains updated information obtained within 48 hours of Surgery/Procedure. SIGNATURE: Yoel Madsen MD PATIENT NAME: Carlos Buckner DATE: March 28, 2018 TIME: 12:12 PM CSN: [id number] Cardiac Catheterization 03/21: Left heart assessment: anterior hypokinesis. Apical hypokinesis, inferior basal hypokinesis, inferior mid hypokinesis LV gram: 55% Elevated LVEDP: 33 mmHg Mild Segmented LV systolic dysfunction ? Left main: normal LAD: mild luminal irregularities Prox LAD: Eccentric : 50% stenosis Diagonal 1: proximal-long: diffused: irregular: 85% stenosis ? Circumflex: prox Circ: mild luminal irregularities OM1: proximal-is subtotally occluded, mid-95% stenosis ? RCA: prox RCA: LONG- DIFFUSED: IRREGULAR: 85% MID RCA: is subtotally occluded Distal RCA: fills late, faintly and partially from bridging collaterals and more predominantly from left to right collateral low ? Collateral flow: collateral from L-R ? Valve findings: Normal AV function Normal MV function ? Aortic root: angiographically normal ECHO: EF: 55% LV: normal LV size segmental dysfunction with preserved ejection fraction. The estimated ejection fraction is 55%. Transmural Doppler flow suggested suggestive of impaired relaxation of the left ventricle. inferobasal: Hypokinetic, mid lateral: hypokinetic, mid posterior: hypokinetic, mid inferior: hypokinetic, anterior apex: Hypokinetic, inferior apex: Hypokinetic. ? RV: Normal size and normal function ? Atria: Normal left atrium, normal right atrium. No Doppler evidence for ASD ? MV: No mitral annular calcification. Normal mitral valve. Mild 1+ mitral valve insufficiency. ? TV: normal tricuspid valve. Trivial tricuspid valve insufficiency. RVSP 25 mmHg ? AV: Trisinus trileaflet aortic valve. Mild focal aortic valve calcification. ? PV: The pulmonic valve is not well visualized. ? Great vessels: Normal sized aortic root ? Pericardium: No pericardial effusion. PROGRESS Observed: 03/28/2018 Status: COMPLETED Source: [facility] 10:29 AM CLINIC OTHER CAMPUS REPOSITORY [facility] ID: [id number] Author: Angel Garcia Service: Hospital Medicine Author Type: Physician Type: Progress Notes Filed: 03/28/2018 10:30 AM Note Text: DEPARTMENT OF HOSPITAL MEDICINE PROGRESS NOTE SERVICE DATE: 03/28/2018 SERVICE TIME: 7:00 AM Hospital Medicine/Primary Attending: Angel Garcai MD NIGHT AND WEEKEND COVERAGE: From 7am - 7pm, please call [phone] After 7pm, please call cross cover pager #[phone] Subjective INTERVAL HPI: 57yo M whom I am seeing for the first time today taking over the case. Patient admitted from [facility] where he was found to have NSTEMI and multiple coronary arteries with significant blockages on cardiac catheterization therefore here to get CABG. Today patient in no distress stating he has no chest pain, no dyspnea, no abdominal pain, no nausea, no vomiting, no fever/chills, and is ready for CABG. VSS MEDICATIONS: Reviewed Objective PHYSICAL EXAM: BP 124/65 Pulse 78 Temp (Src) 96.8 (Oral) Resp 19 Ht 5' 8 (1.73m) Wt 234 lb 12.8 oz (106.5kg) SpO2 98% BMI 35.71 kg/(m2). Physical Exam Performed GENERAL: Alert, no distress, cooperative SKIN: Skin color, texture, turgor normal. No rashes or lesions. OROPHARYNX: Lips, mucosa, and tongue normal. Teeth and gums normal. Oropharynx normal. LUNGS: Lungs clear to auscultation, Good diaphragmatic excursion, no wheezing, no crackles CARDIAC: Normal S1 and S2; no rubs, murmurs, or gallops, RRR ABDOMEN: Abdomen soft, non-tender, BS normal, No masses or organomegaly EXTREMITIES: Extremities normal, no deformities, edema, clubbing or skin discoloration. Good capillary refill., No ulcers NEURO: Gait normal. Reflexes normal and symmetric. Sensation grossly intact, Cranial nerves II-XII intact PULSES: 2+ radial, 2+ carotid Lines, Drains, and Airways Line Peripheral Assessment Short Left Forearm 20 Gauge -- days Reviewed lines, drains, AND airways. Need to be continued . DATA: Diagnostic tests reviewed for today's visit: Most recent labs and imaging results. Assessment/Plan 1) Acute Coronary Syndrome with NSTEMI and multivessel blockages that are significant indicated above. - CABG today - Cardiology on board - Continue ASA 81mg daily - Continue Atorvastatin 80mg daily - Continue Lovenox 105mg BID - Continue Metoprolol 25mg BID 2) Type II DM: - Stopped Glimipiride ( I do not like using PO antidiabetic medications as an inpatient basis and this is not a good one to be on with high hypoglycemic risk consider stopping this at time of discharge) - Insulin sliding scale - Glucometer checks 3x/day - Insulin Levemir 30 units in the AM - Insulin Humalog 12units TID before meals - Endocrinology on board 3) TEOFILO - Continue CPAP at night 4) HTN: - Continue Metoprolol 25mg BID - Continue Losartan 25mg daily 5) HLD - Continue Atorvastatin 80mg daily Medication and Non-Pharmacologic VTE Prophylaxis/Anticoagulants Anticoagulant AND Antiplatelet Medications Start Dose Route Frequency Ordered Stop 03/28/18 1330 heparin 3,000 Units in NaCl 0.9% 500 mL irrigation 3,000 Units IRRIGATION ONE TIME 03/27/18 0722 -- 03/23/18 0600 aspirin 81 mg chewable tab(s) 81 mg ORAL DAILY AT 6 AM 03/22/18 0956 -- 03/21/18 224 vte non-pharmacologic prophylaxis - none indicated (in,oh) 03/21/182144 vte current anticoag therapy (in,ia) 03/21/182144 pneumatic compression stockings (in,ia) VTE Prophylaxis: VTE prophylaxis appropriate Disposition: Inpatient Plan of care discussed with: Patient SIGNATURE: Angel Garcia MD PATIENT NAME: Carlos Buckner DATE: March 28, 2018 TIME: 7:00 AM PAGER/CONTACT #: [phone] [phone] CONSULT PROG Observed: 03/28/2018 Status: COMPLETED Source: [facility] 9:20 AM CLINIC OTHER CAMPUS REPOSITORY [facility] ID: [id number] Author: Ifeoma Cadena Service: Endocrinology Author Type: Physician Type: Consult Progress Note Filed: 03/28/2018 12:32 PM Note Text: ENDOCRINOLOGY CONSULT PROGRESS NOTE SERVICE DATE: 03/28/2018 SERVICE TIME: 9:20 AM Subjective INTERVAL HPI: pt seen for diabetes mellitus; no complaints today, taking po well, BS's 200's on Levemir 30 units qam and prandial humalog 10 units qac tid plus correction; No CP; no SOB, no nausea; awaiting CABG today DIET NPO Current hospital medications: lactated ringers infusion 75 mL/hr INTRAVENOUS CONTINUOUS heparin 3,000 Units in NaCl 0.9% 500 mL irrigation 3,000 Units IRRIGATION ONE TIME PHENYLephrine 20 mg in NaCl 0.9% 250 mL (NEOSYNEPHRINE) 25- 300 mcg/min INTRAVENOUS ONE TIME aminocaproic acid 10 g in NaCl 0.9% 250 mL (AMicAR) 1 g/hr INTRAVENOUS ONE TIME dexmedetomidine 400 mcg in NaCl 0.9% 100 mL (PRECEDEX) 0.2- 0.7 mcg/kg/hr INTRAVENOUS ONE TIME EPINEPHrine 4 mg in NaCl 0.9% 250 mL 0.5-10 mcg/min INTRAVENOUS ONE TIME insulin regular iv infusion 250 units in NaCl 0.9% 250 mL - AK CARD SURG NOMOGRAM 0-12 Units/hr INTRAVENOUS ONE TIME nitroglycerin 100 mg in D5W 250 mL 5-20 mcg/min INTRAVENOUS ONE TIME PHENYLephrine iv infusion 10 mg in NaCl 0.9% 250 mL (UMBERTO-SYNEPHRINE) 0-100 mcg/min INTRAVENOUS ONE TIME anticoagulant CPDA-1 39 mL, potassium chloride 36 mEq, sodium bicarbonate 45 mEq, Lidocaine HCl(PF) 180 mg in NaCl 0.9% 250 mL (CARDROPLEGIA SOLUTION - BAG 1) INTRACAVITY ONE TIME potassium chloride 25 mEq, Lidocaine HCl(PF) 100 mg in NaCl 0.9% 500 mL (CARDIOPLEGIA SOLUTION - BAG 2) INTRACAVITY ONE TIME insulin lispro 12 Units pen (rapid acting) (HumaLOG KWIKPEN) 12 Units SUBCUTANEOUS w MEALS insulin regular iv infusion 250 units in NaCl 0.9% 250 mL - AK CARD SURG NOMOGRAM 0-12 Units/hr INTRAVENOUS CONTINUOUS insulin detemir U-100 30 Units injection (long acting) (LEVEMIR) 30 Units SUBCUTANEOUS DAILY (8 AM) insulin lispro pen (rapid acting) (HumaLOG KWIKPEN) SUBCUTANEOUS w MEALS aspirin 81 mg chewable tab(s) 81 mg ORAL DAILY (6 AM) 0.9% NaCl 3-5 mL 3-5 mL INTRAVENOUS q 12 H atorvastatin 80 mg tab(s) (LIPITOR) 80 mg ORAL AT BEDTIME dextrose 40 % 15 g 15 g ORAL PRN glucagon 1 mg injection (GLUCAGEN) 1 mg INTRAMUSCULAR PRN dextrose 50% in water 25 mL syringe 12.5 g INTRAVENOUS PRN nitroglycerin sublingual 0.4 mg tab(s) (NITROQUICK) 0.4 mg SUBLINGUAL PRN metoprolol tartrate (short acting) 25 mg tab(s) (LOPRESSOR) 25 mg ORAL q 12 H losartan 25 mg tab(s) (COZAAR) 25 mg ORAL DAILY Objective PHYSICAL EXAM: BP 108/64 Pulse 78 Temp (Src) 96.8 (Oral) Resp 19 Ht 5' 8 (1.73m) Wt 232 lb (105.2kg) SpO2 98% BMI 35.28 kg/(m2). General: Well appearing, alert, in no acute distress, well- hydrated, well nourished. and Obese Skin: skin color, texture, turgor normal, no rashes or lesions. Head: normocephalic, no masses, lesions, tenderness or abnormalities. Eyes: SUSAN,EOMI Oropharynx: moist Neck: Supple, no adenopathy; thyroid symmetric, normal size, no bruits Heart: RRR without murmur, gallop, or rubs. No ectopy Abdomen: soft, non-tender, positive bowel sounds Extremities: no edema, no calluses or ulcers present. Peripheral Pulses: posterior tibial and doralis pedis pulses 2+ and symmetrical ? DATA: Diagnostic tests reviewed for today's visit: Most recent labs and imaging results. Assessment/Plan DM (diabetes mellitus), type 2, uncontrolled; HbA1c 8.2; on oral antihyperglycemics (Metformin/Amaryl/Jardiance) at home; now with complications; ? CAD (coronary artery disease) severe. ?ACS (acute coronary syndrome) scheduled for revascularization on 03/28 ? Hyperlipemia POA: Yes Assessment AND Plan: per 1 service ? TEOFILO (obstructive sleep apnea) POA: Yes Assessment AND Plan: per 1 service. ? Recommendations: discontinued oral antihyperglycemics; started on prog insulin Levemir 30 units daily AM and humalog 10 units qac tid plus correction. BS >150's, continue rx. Will initiate iv insulin prior to OR for CABG on 03/28; will keep BS under tight control; will follow. SIGNATURE: Ifeoma Cadena MD PATIENT NAME: Carlos Buckner DATE: March 28, 2018 TIME: 12:32 PM PAGER: [phone] ABO/RH CONFIRMATION Collected: 03/28/2018 Status: F Source: [facility] 5:40 AM HEALTH SYSTEM REPOSITORY TYPE CODE TESTS RESULT OUT OF REFERENCE UNITS RANGE LAB ABO(LOINC) A ABO Group LAB PREPARATION OPERATOR(LOINC) RH Type Positive Performed By: #### ABOCK #### [facility] [address] [place] [address] HEMOGRAM/DIFF Collected: 03/28/2018 Status: F Source: [facility] 2:43 AM HEALTH SYSTEM REPOSITORY TYPE CODE TESTS RESULT OUT OF REFERENCE UNITS RANGE LAB WBC(LOINC) 4.23-9.07 thou/cmm WBC 4.52 LAB RBC(LOINC) 4.63-6.08 mil/cmm Low RBC 4.13 LAB HGB(LOINC) 13.7-17.5 g/dL Low Hgb 13.0 LAB HCT(LOINC) 40.1-51.0 % Low Hct 37.9 LAB MCV(LOINC) 83.2-95.6 fl MCV 91.8 LAB MCH(LOINC) 25.7-32.2 pg MCH 31.5 LAB MCHC(LOINC 32.3-36.5 % ) MCHC 34.3 LAB RDW(LOINC) 11.6-14.4 % RDW 11.9 LAB RDWSD(LOIN 36.1-45.8 fl C) RDW SD 40.3 LAB PLT(LOINC) 141-365 thou/cmm Platelet 174 LAB MPV(LOINC) 8.7-12.0 fl MPV 10.2 LAB SEG(LOINC) % Seg Neutrophil 57.8 LAB IGRE(LOINC % ) Immature Grans 0.20 LAB LYMPH(LOIN % C) Lymphocyte 27.4 LAB MNO(LOINC) % Monocyte 12.4 LAB EOSIN(LOIN % C) Eosinophil 1.8 LAB BASO(LOINC % ) Basophil 0.4 LAB SEGN(LOINC 1.78-5.38 thou/cmm ) Abs. Neut (ANC) 2.61 LAB IGAB(LOINC 0.00-0.05 thou/cmm ) Abs Immature Grans 0.01 LAB LYMN(LOINC 0.84-2.85 thou/cmm ) Abs. Lymph 1.24 LAB MONON(LOIN 0.30-0.82 thou/cmm C) Abs. Lander 0.56 LAB EOSN(LOINC 0.04-0.54 thou/cmm ) Abs. Eosin 0.08 LAB BASON(LOIN 0.01-0.08 thou/cmm C) Abs. Baso 0.02 Performed By: #### CBCD1 #### [facility] [address] [place] [address] PROTIME Collected: 03/28/2018 Status: F Source: [facility] 2:43 AM HEALTH SYSTEM REPOSITORY TYPE CODE TESTS RESULT OUT OF REFERENCE UNITS RANGE LAB PTI(LOINC) 9.7-13.0 sec Prothrombin Time 10.7 LAB INR(LOINC) 0.90-1.30 INR 1.03 Result Comment: Note: Reference Range Change Vitamin K Antagonist (VKA) Therapeutic Range: INR 2 to 3 (Target INR of 2.5) Note: For patients treated with VKA drugs, such as warfarin, the [employer] 2012 Guideline recommends a therapeutic INR range of 2 to 3 (target INR of 2.5). This recommendation includes high-risk patients with antiphospholipid syndrome with previous arterial or venous thromboembolism, current-generation mechanical or bioprosthetic aortic heart valve replacement. VKA Therapeutic Range for some Mechanical Valve Replacement: INR 2.5 to 3.5 (Target INR of 3) Note: Patients with mechanical aortic valve replacement and additional risk factors for thromboembolic events (atrial fibrillation, previous thromboembolism, LV dysfunction, hypercoagulable conditions) or an older generation mechanical AVR (i.e., ball in-Cage) or any mechanical MVR should have a INR therapeutic range of 2.5 to 3.5 target INR of 3). Stefanie GH, et al. Chest 2012; 141:7S-47S Brie VILLARREAL et al. [facility] 2017; 70: 252-289 Performed By: #### PT #### [place] [id number] BASIC PANEL Collected: 03/28/2018 Status: F Source: [facility] 2:43 AM HEALTH SYSTEM REPOSITORY TYPE CODE TESTS RESULT OUT OF REFERENCE UNITS RANGE LAB NA(LOINC) 136-145 mEq/L Sodium Blood 137 LAB K(LOINC) 3.5-5.1 mEq/L Potassium Blood 3.8 LAB CL(LOINC) 98-107 mEq/L Chloride Blood 104 LAB CO2(LOINC) 21-32 mEq/L CO2 Blood 26 LAB GLU(LOINC) 70-99 mg/dL Glucose High Blood 198 LAB BUN(LOINC) 7-18 mg/dL BUN Blood 17 LAB CREA(LOINC 0.67-1.17 mg/dL ) Creatinine Blood 0.84 LAB CA(LOINC) 8.5-10.1 mg/dL Calcium Blood 8.5 LAB ANGAP(LOIN 8-16 C) Anion Gap 11 Performed By: #### P8 #### [place] [address] TYPE AND SCREEN Collected: 03/28/2018 Status: F Source: [facility] 2:43 AM HEALTH SYSTEM REPOSITORY TYPE CODE TESTS RESULT OUT OF REFERENCE UNITS RANGE LAB ABO(LOINC) A ABO Group LAB PREPARATION OPERATOR(LOINC ) RH Type Positive LAB ABSCR(LOIN C) Antibody NEGATIVE Screen LAB BBCMT(LOIN C) Comment See Below Result Comment: Screen &/or Xmatch expires in 3 days at 12 midnight. Redraw patient at that time. Performed By: #### T&S #### [facility] [address] [place] [address] ALLIED HEALTH Observed: 03/27/2018 Status: COMPLETED Source: [facility] 6:45 PM [facility] REPOSITORY [facility] ID: [id number] Author: Chaplain Katz (Chaplain) Service: Spiritual Care Author Type: Podopediatrician Type: Allied Health Filed: 03/27/2018 7:49 PM Note Text: SPIRITUALCARE Spiritual Care Visit- Brief Note Name: Carlos Buckner Date: March 27, 2018 Notes: Scrub Sheet Patient. Patient in the shower, his Ramana and daughter Tona in the room. I made Spiritual Care available for patient and family. Podopediatrician Signature: Chaplain Sterling To contact the Spiritual Care Department: Please call [phone] or Page the On-Call Podopediatrician at pager [phone] Thank you for the opportunity to be of service. This is an electronically created document. IF PRINTED, PLEASE DO NOT REMOVE FROM THE CHART OR MODIFY PRINTED COPY. PROGRESS Observed: 03/27/2018 Status: COMPLETED Source: [place] 12:00 PM [facility] REPOSITORY HNO ID: [id number] Author: Mike Rose Service: Thoracic Surgery Author Type: Physician Type: Progress Notes Filed: 03/27/2018 12:01 PM Note Text: Patient seen and Deng's test repeated and OK/adequate for Right radial use. Questions answered. OR tomorrow afternoon as 2nd case. Preops in per [facility]. PROGRESS Observed: 03/27/2018 Status: COMPLETED Source: [place] 9:18 AM [facility] REPOSITORY HNO ID: [id number] Author: Angel Garcia Service: Hospital Medicine Author Type: Physician Type: Progress Notes Filed: 03/27/2018 9:20 AM Note Text: DEPARTMENT OF HOSPITAL MEDICINE PROGRESS NOTE SERVICE DATE: 03/27/2018 SERVICE TIME: 7:00 AM Hospital Medicine/Primary Attending: Angel Garcia MD NIGHT AND WEEKEND COVERAGE: From 7am - 7pm, please call [phone] After 7pm, please call cross cover pager #[phone] Subjective INTERVAL HPI: 57yo M whom I am seeing for the first time today taking over the case. Patient admitted from [facility] where he was found to have NSTEMI and multiple coronary arteries with significant blockages on cardiac catheterization therefore here to get CABG. Today patient in no distress stating he has no chest pain, no dyspnea, no abdominal pain, no nausea, no vomiting, no fever/chills, and understands why he needs a CABG. VSS MEDICATIONS: Reviewed Objective PHYSICAL EXAM: BP 96/51 Pulse 75 Temp (Src) 97.9 (Oral) Resp 18 Ht 5' 8 (1.73m) Wt 235 lb 3.2 oz (106.7kg) SpO2 93% BMI 35.77 kg/(m2). Physical Exam Performed GENERAL: Alert, no distress, cooperative SKIN: Skin color, texture, turgor normal. No rashes or lesions. OROPHARYNX: Lips, mucosa, and tongue normal. Teeth and gums normal. Oropharynx normal. LUNGS: Lungs clear to auscultation, Good diaphragmatic excursion, no wheezing, no crackles CARDIAC: Normal S1 and S2; no rubs, murmurs, or gallops, RRR ABDOMEN: Abdomen soft, non-tender, BS normal, No masses or organomegaly EXTREMITIES: Extremities normal, no deformities, edema, clubbing or skin discoloration. Good capillary refill., No ulcers NEURO: Gait normal. Reflexes normal and symmetric. Sensation grossly intact, Cranial nerves II-XII intact PULSES: 2+ radial, 2+ carotid Lines, Drains, and Airways Line Peripheral Assessment Short Left Forearm 20 Gauge -- days Reviewed lines, drains, AND airways. Need to be continued . DATA: Diagnostic tests reviewed for today's visit: Most recent labs and imaging results. Assessment/Plan 1) Acute Coronary Syndrome with NSTEMI and multivessel blockages that are significant indicated above. - CABG tomorrow NPO after midnight - Cardiology on board - Continue ASA 81mg daily - Continue Atorvastatin 80mg daily - Continue Lovenox 105mg BID - Continue Metoprolol 25mg BID 2) Type II DM: - Stopped Glimipiride ( I do not like using PO antidiabetic medications as an inpatient basis and this is not a good one to be on with high hypoglycemic risk consider stopping this at time of discharge) - Insulin sliding scale - Glucometer checks 3x/day - Insulin Levemir 30 units in the AM - Insulin Humalog 12units TID before meals - Endocrinology on board 3) TEOFILO - Continue CPAP at night 4) HTN: - Continue Metoprolol 25mg BID - Continue Losartan 25mg daily 5) HLD - Continue Atorvastatin 80mg daily Medication and Non-Pharmacologic VTE Prophylaxis/Anticoagulants Anticoagulant AND Antiplatelet Medications Start Dose Route Frequency Ordered Stop 03/28/18 1330 heparin 3,000 Units in NaCl 0.9% 500 mL irrigation 3,000 Units IRRIGATION ONE TIME 03/27/18 0722 -- 03/23/18 0600 aspirin 81 mg chewable tab(s) 81 mg ORAL DAILY AT 6 AM 03/22/18 0956 -- 03/21/18 2300 enoxaparin 105 mg injection (LOVENOX) 1 mg/kg/dose SUBCUTANEOUS EVERY 12 HOURS 03/21/18 2258 03/27/18 2359 03/21/18 2245 vte non-pharmacologic prophylaxis - none indicated ([place]) 03/21/182144 vte current anticoag therapy ([place], [place]) 03/21/182144 pneumatic compression stockings ([place]) VTE Prophylaxis: VTE prophylaxis appropriate Disposition: Inpatient Plan of care discussed with: Patient SIGNATURE: Angel Garcia MD PATIENT NAME: Carlos Buckner DATE: March 27, 2018 TIME: 7:00 AM PAGER/CONTACT #: [phone] etx [phone] CONSULT PROG Observed: 03/27/2018 Status: COMPLETED Source: [place] 8:06 AM [facility] CAMP[facility] REPOSITORY HNO ID: [id number] Author: Shazia Brown Service: Endocrinology Author Type: Physician Type: Consult Progress Note Filed: 03/27/2018 8:08 AM Note Text: ENDOCRINOLOGY CONSULT PROGRESS NOTE SERVICE DATE: 03/27/2018 SERVICE TIME: 7:55 AM Subjective INTERVAL HPI: pt seen for diabetes mellitus; no complaints today, taking po well, BS's 200's on Levemir 30 units qam and prandial humalog 8 units qac tid plus correction; for CABG on 03/28. No CP; no SOB, no nausea. Walked in room and hallway. DIET CARBOHYDRATE CONTROLLED Current hospital medications: [START ON 03/28/2018] heparin 3,000 Units in NaCl 0.9% 500 mL irrigation 3,000 Units IRRIGATION ONE TIME [START ON 03/28/2018] PHENYLephrine 20 mg in NaCl 0.9% 250 mL (NEOSYNEPHRINE) 25-300 mcg/min INTRAVENOUS ONE TIME [START ON 03/28/2018] aminocaproic acid 10 g in NaCl 0.9% 250 mL (AMicAR) 1 g/hr INTRAVENOUS ONE TIME [START ON 03/28/2018] dexmedetomidine 400 mcg in NaCl 0.9% 100 mL (PRECEDEX) 0.2-0.7 mcg/kg/hr INTRAVENOUS ONE TIME [START ON 03/28/2018] EPINEPHrine 4 mg in NaCl 0.9% 250 mL 0.5-10 mcg/min INTRAVENOUS ONE TIME [START ON 03/28/2018] insulin regular iv infusion 250 units in NaCl 0.9% 250 mL - AK CARD SURG NOMOGRAM 0-12 Units/hr INTRAVENOUS ONE TIME [START ON 03/28/2018] nitroglycerin 100 mg in D5W 250 mL 5- 20 mcg/min INTRAVENOUS ONE TIME [START ON 03/28/2018] PHENYLephrine iv infusion 10 mg in NaCl 0.9% 250 mL (UMBERTO-SYNEPHRINE) 0-100 mcg/min INTRAVENOUS ONE TIME [START ON 03/28/2018] anticoagulant CPDA-1 39 mL, potassium chloride 36 mEq, sodium bicarbonate 45 mEq, Lidocaine HCl(PF) 180 mg in NaCl 0.9% 250 mL (CARDROPLEGIA SOLUTION - BAG 1) INTRACAVITY ONE TIME [START ON 03/28/2018] potassium chloride 25 mEq, Lidocaine HCl(PF) 100 mg in NaCl 0.9% 500 mL (CARDIOPLEGIA SOLUTION - BAG 2) INTRACAVITY ONE TIME insulin lispro 10 Units pen (rapid acting) (HumaLOG KWIKPEN) 10 Units SUBCUTANEOUS w MEALS insulin detemir U-100 30 Units injection (long acting) (LEVEMIR) 30 Units SUBCUTANEOUS DAILY (8 AM) insulin lispro pen (rapid acting) (HumaLOG KWIKPEN) SUBCUTANEOUS w MEALS aspirin 81 mg chewable tab(s) 81 mg ORAL DAILY (6 AM) 0.9% NaCl 3-5 mL 3-5 mL INTRAVENOUS q 12 H atorvastatin 80 mg tab(s) (LIPITOR) 80 mg ORAL AT BEDTIME dextrose 40 % 15 g 15 g ORAL PRN glucagon 1 mg injection (GLUCAGEN) 1 mg INTRAMUSCULAR PRN dextrose 50% in water 25 mL syringe 12.5 g INTRAVENOUS PRN enoxaparin 105 mg injection (LOVENOX) 1 mg/kg/dose SUBCUTANEOUS q 12 HR nitroglycerin sublingual 0.4 mg tab(s) (NITROQUICK) 0.4 mg SUBLINGUAL PRN metoprolol tartrate (short acting) 25 mg tab(s) (LOPRESSOR) 25 mg ORAL q 12 H losartan 25 mg tab(s) (COZAAR) 25 mg ORAL DAILY Objective PHYSICAL EXAM: BP 96/51 Pulse 75 Temp (Src) 97.9 (Oral) Resp 18 Ht 5' 8 (1.73m) Wt 235 lb 3.2 oz (106.7kg) SpO2 93% BMI 35.77 kg/(m2). General: Well appearing, alert, in no acute distress, well- hydrated, well nourished. Obese Skin: skin color, texture, turgor normal, no rashes or lesions. Head: normocephalic, no masses, lesions, tenderness or abnormalities. Eyes: SUSAN,EOMI Oropharynx: moist Neck: Supple, no adenopathy; thyroid symmetric, normal size, no bruits Heart: RRR without murmur, gallop, or rubs. No ectopy Abdomen: soft, non-tender, positive bowel sounds Extremities: no edema, no calluses or ulcers present. Peripheral Pulses: posterior tibial and doralis pedis pulses 2+ and symmetrical ? DATA: Diagnostic tests reviewed for today's visit: Most recent labs and imaging results. Assessment/Plan DM (diabetes mellitus), type 2, uncontrolled; HbA1c 8.2; on oral antihyperglycemics (Metformin/Amaryl/Jardiance) at home; now with complications; ? CAD (coronary artery disease) severe. ?ACS (acute coronary syndrome) scheduled for revascularization on 03/28 ? Hyperlipemia POA: Yes Assessment AND Plan: per 1 service ? TEOFILO (obstructive sleep apnea) POA: Yes Assessment AND Plan: per 1 service. ? Recommendations: discontinued oral antihyperglycemics; on prog insulin Levemir 30 units daily AM and humalog 10 units qac tid plus correction. BS still >150's, will increase Humalog to 12 units tid. Will initiate IV insulin prior to OR for CABG on 03/28; will keep BS under tight control; will follow. SIGNATURE: Shazia Brown MD PATIENT NAME: Carlos Buckner DATE: March 27, 2018 TIME: 8:08 AM PAGER: [phone] HEMOGRAM/DIFF Collected: 03/27/2018 Status: F Source: [facility] 5:30 AM HEALTH SYSTEM REPOSITORY TYPE CODE TESTS RESULT OUT OF REFERENCE UNITS RANGE LAB WBC(LOINC) 4.23-9.07 thou/cmm WBC 5.29 LAB RBC(LOINC) 4.63-6.08 mil/cmm Low RBC 4.51 LAB HGB(LOINC) 13.7-17.5 g/dL Hgb 14.4 LAB HCT(LOINC) 40.1-51.0 % Hct 41.3 LAB MCV(LOINC) 83.2-95.6 fl MCV 91.6 LAB MCH(LOINC) 25.7-32.2 pg MCH 31.9 LAB MCHC(LOINC 32.3-36.5 % ) MCHC 34.9 LAB RDW(LOINC) 11.6-14.4 % RDW 12.1 LAB RDWSD(LOIN 36.1-45.8 fl C) RDW SD 40.6 LAB PLT(LOINC) 141-365 thou/cmm Platelet 192 LAB MPV(LOINC) 8.7-12.0 fl MPV 9.9 LAB SEG(LOINC) % Seg Neutrophil 64.4 LAB IGRE(LOINC % ) Immature Grans 0.20 LAB LYMPH(LOIN % C) Lymphocyte 24.2 LAB MNO(LOINC) % Monocyte 9.3 LAB EOSIN(LOIN % C) Eosinophil 1.5 LAB BASO(LOINC % ) Basophil 0.4 LAB SEGN(LOINC 1.78-5.38 thou/cmm ) Abs. Neut (ANC) 3.41 LAB IGAB(LOINC 0.00-0.05 thou/cmm ) Abs Immature Grans 0.01 LAB LYMN(LOINC 0.84-2.85 thou/cmm ) Abs. Lymph 1.28 LAB MONON(LOIN 0.30-0.82 thou/cmm C) Abs. Lander 0.49 LAB EOSN(LOINC 0.04-0.54 thou/cmm ) Abs. Eosin 0.08 LAB BASON(LOIN 0.01-0.08 thou/cmm C) Abs. Baso 0.02 Performed By: #### CBCD1 #### [facility] [address] [id number] BASIC PANEL Collected: 03/27/2018 Status: F Source: [facility] 5:30 AM HEALTH SYSTEM REPOSITORY TYPE CODE TESTS RESULT OUT OF REFERENCE UNITS RANGE LAB NA(LOINC) 136-145 mEq/L Sodium Blood 138 LAB K(LOINC) 3.5-5.1 mEq/L Potassium Blood 3.9 LAB CL(LOINC) 98-107 mEq/L Chloride Blood 104 LAB CO2(LOINC) 21-32 mEq/L CO2 Blood 25 LAB GLU(LOINC) 70-99 mg/dL Glucose High Blood 160 LAB BUN(LOINC) 7-18 mg/dL BUN High Blood 19 LAB CREA(LOINC 0.67-1.17 mg/dL ) Creatinine Blood 0.95 LAB CA(LOINC) 8.5-10.1 mg/dL Low Calcium Blood 8.4 LAB ANGAP(LOIN 8-16 C) Anion Gap 13 Performed By: #### P8 #### [place] [id number] PROGRESS Observed: 03/26/2018 Status: COMPLETED Source: [place] 9:46 AM [facility] OTHER CAMPUS REPOSITORY HNO ID: [id number] Author: Angel Garcia Service: Hospital Medicine Author Type: Physician Type: Progress Notes Filed: 03/26/2018 9:46 AM Note Text: DEPARTMENT OF HOSPITAL MEDICINE PROGRESS NOTE SERVICE DATE: 03/26/2018 SERVICE TIME: 9:00 AM Hospital Medicine/Primary Attending: Angel Garcia MD NIGHT AND WEEKEND COVERAGE: From 7am - 7pm, please call [phone] After 7pm, please call cross cover pager #[phone] Subjective INTERVAL HPI: 57yo M whom I am seeing for the first time today taking over the case. Patient admitted from [facility] where he was found to have NSTEMI and multiple coronary arteries with significant blockages on cardiac catheterization therefore here to get CABG. Today patient in no distress stating he has no chest pain, no dyspnea, no abdominal pain, no nausea, no vomiting, no fever/chills, and understands why he needs a CABG. VSS MEDICATIONS: Reviewed Objective PHYSICAL EXAM: BP 110/80 Pulse 65 Temp (Src) 97 (Temporal Artery) Resp 18 Ht 5' 8 (1.73m) Wt 235 lb 3.2 oz (106.7kg) SpO2 98% BMI 35.77 kg/(m2). Physical Exam Performed GENERAL: Alert, no distress, cooperative SKIN: Skin color, texture, turgor normal. No rashes or lesions. OROPHARYNX: Lips, mucosa, and tongue normal. Teeth and gums normal. Oropharynx normal. LUNGS: Lungs clear to auscultation, Good diaphragmatic excursion, no wheezing, no crackles CARDIAC: Normal S1 and S2; no rubs, murmurs, or gallops, RRR ABDOMEN: Abdomen soft, non-tender, BS normal, No masses or organomegaly EXTREMITIES: Extremities normal, no deformities, edema, clubbing or skin discoloration. Good capillary refill., No ulcers NEURO: Gait normal. Reflexes normal and symmetric. Sensation grossly intact, Cranial nerves II-XII intact PULSES: 2+ radial, 2+ carotid Lines, Drains, and Airways Line Peripheral Assessment Short Left Forearm 20 Gauge -- days Reviewed lines, drains, AND airways. Need to be continued . DATA: Diagnostic tests reviewed for today's visit: Most recent labs and imaging results. Assessment/Plan 1) Acute Coronary Syndrome with NSTEMI and multivessel blockages that are significant indicated above. - CABG scheduled for Wednesday Morning - Cardiology on board - Continue ASA 81mg daily - Continue Atorvastatin 80mg daily - Continue Lovenox 105mg BID - Continue Metoprolol 25mg BID 2) Type II DM: - Stopped Glimipiride ( I do not like using PO antidiabetic medications as an inpatient basis and this is not a good one to be on with high hypoglycemic risk consider stopping this at time of discharge) - Insulin sliding scale - Glucometer checks 3x/day 3) TEOFILO - Continue CPAP at night 4) HTN: - Continue Metoprolol 25mg BID - Continue Losartan 25mg daily 5) HLD - Continue Atorvastatin 80mg daily Medication and Non-Pharmacologic VTE Prophylaxis/Anticoagulants Anticoagulant AND Antiplatelet Medications Start Dose Route Frequency Ordered Stop 03/23/18 0600 aspirin 81 mg chewable tab(s) 81 mg ORAL DAILY AT 6 AM 03/22/18 0956 -- 03/21/18 2300 enoxaparin 105 mg injection (LOVENOX) 1 mg/kg/dose SUBCUTANEOUS EVERY 12 HOURS 03/21/18 2258 -- 03/21/18 224 vte non-pharmacologic prophylaxis - none indicated ([place]) 03/21/182144 vte [place]ag [place]) 03/21/182144 pneumatic compression stockings ([place], [place]) VTE Prophylaxis: VTE prophylaxis appropriate Disposition: Inpatient Plan of care discussed with: Patient SIGNATURE: Angel Garcia MD PATIENT NAME: Carlos Buckner DATE: March 26, 2018 TIME: 9:00 AM PAGER/CONTACT #: [phone] etx [id number] CONSULT PROG Observed: 03/26/2018 Status: COMPLETED Source: [place] 8:30 AM [facility] OTHER CAMPUS REPOSITORY O ID: [id number] Author: Shazia Brown Service: Endocrinology Author Type: Physician Type: Consult Progress Note Filed: 03/26/2018 9:34 AM Note Text: ENDOCRINOLOGY CONSULT PROGRESS NOTE SERVICE DATE: 03/26/2018 SERVICE TIME: 9:20 AM Subjective INTERVAL HPI: pt seen for diabetes mellitus; no complaints today, taking po well, BS's 200's on Levemir 30 units qam and prandial humalog 8 units qac tid plus correction; No CP; no SOB, no nausea. DIET CARBOHYDRATE CONTROLLED Current hospital medications: insulin detemir U-100 30 Units injection (long acting) (LEVEMIR) 30 Units SUBCUTANEOUS DAILY (8 AM) insulin lispro 8 Units pen (rapid acting) (HumaLOG KWIKPEN) 8 Units SUBCUTANEOUS w MEALS insulin lispro pen (rapid acting) (HumaLOG KWIKPEN) SUBCUTANEOUS w MEALS aspirin 81 mg chewable tab(s) 81 mg ORAL DAILY (6 AM) mupirocin ointment (BACTROBAN) NASAL BID 0.9% NaCl 3-5 mL 3-5 mL INTRAVENOUS q 12 H atorvastatin 80 mg tab(s) (LIPITOR) 80 mg ORAL AT BEDTIME dextrose 40 % 15 g 15 g ORAL PRN glucagon 1 mg injection (GLUCAGEN) 1 mg INTRAMUSCULAR PRN dextrose 50% in water 25 mL syringe 12.5 g INTRAVENOUS PRN enoxaparin 105 mg injection (LOVENOX) 1 mg/kg/dose SUBCUTANEOUS q 12 HR nitroglycerin sublingual 0.4 mg tab(s) (NITROQUICK) 0.4 mg SUBLINGUAL PRN metoprolol tartrate (short acting) 25 mg tab(s) (LOPRESSOR) 25 mg ORAL q 12 H losartan 25 mg tab(s) (COZAAR) 25 mg ORAL DAILY Objective PHYSICAL EXAM: BP 110/80 Pulse 65 Temp (Src) 97 (Temporal Artery) Resp 18 Ht 5' 8 (1.73m) Wt 235 lb 3.2 oz (106.7kg) SpO2 98% BMI 35.77 kg/(m2). General: Well appearing, alert, in no acute distress, well- hydrated, well nourished. and Obese Skin: skin color, texture, turgor normal, no rashes or lesions. Head: normocephalic, no masses, lesions, tenderness or abnormalities. Eyes: SUSAN,EOMI Oropharynx: moist Neck: Supple, no adenopathy; thyroid symmetric, normal size, no bruits Heart: RRR without murmur, gallop, or rubs. No ectopy Abdomen: soft, non-tender, positive bowel sounds Extremities: no edema, no calluses or ulcers present. Peripheral Pulses: posterior tibial and doralis pedis pulses 2+ and symmetrical ? DATA: Diagnostic tests reviewed for today's visit: Most recent labs and imaging results. Assessment/Plan DM (diabetes mellitus), type 2, uncontrolled; HbA1c 8.2; on oral antihyperglycemics (Metformin/Amaryl/Jardiance) at home; now with complications; ? CAD (coronary artery disease) severe. ?ACS (acute coronary syndrome) scheduled for revascularization on 03/28 ? Hyperlipemia POA: Yes Assessment AND Plan: per 1 service ? TEOFILO (obstructive sleep apnea) POA: Yes Assessment AND Plan: per 1 service. ? Recommendations: discontinued oral antihyperglycemics; started on prog insulin Levemir 30 units daily AM and humalog 8 units qac tid plus correction. BS >150's, will increase Humalog to 10 units tid. Will initiate iv insulin prior to OR for CABG on 03/28; will keep BS under tight control; will follow. SIGNATURE: Shazia Brown MD PATIENT NAME: Carlos Buckner DATE: March 26, 2018 TIME: 9:34 AM PAGER: [phone] PROGRESS Observed: 03/26/2018 Status: COMPLETED Source: [place] 1:58 AM [facility] OTHER CAMP[facility] REPOSITORY HNO ID: [id number] Author: Downtime Note Service: (none) Author Type: (none) Type: Progress Notes Filed: 03/26/2018 2:04 AM Note Text: Epic Scheduled Downtime: 03/26/2018 12:00:01 AM to 03/26/2018 1:54:00 AM PROGRESS Observed: 03/25/2018 Status: COMPLETED Source: [place] 5:45 PM [facility] OTHER CAMPUS REPOSITORY HNO ID: [id number] Author: Mike Rose Service: Thoracic Surgery Author Type: Physician Type: Progress Notes Filed: 03/25/2018 5:48 PM Note Text: Patient seen. Left handed individual. Deng's test RIGHT hand shows adequate reperfusion via R ulnar artery. Discussed benefits and risks associated with radial artery usage for conduit in his case. He is thinking he is agreeable to that today. CASE MANAGEM Observed: 03/25/2018 Status: COMPLETED Source: [place] 4:30 PM [facility] [place] REPOSITORY HNO ID: [id number] Author: Anel Kessler (Sw) Service: Care Management Author Type: Revenue Director Type: Care Mgt Progress Note Filed: 03/25/2018 4:31 PM Note Text: CARE MANAGEMENT PROGRESS NOTE SERVICE DATE: 03/25/2018 SERVICE TIME: 4:31 PM LOS: 4 days Advanced Directives Met with pt in room; educated pt on HCPOA and Living Will. Completed documents with pt stating understanding of use and purpose of Advance Directives and when to enact them. Copies made; provided for pt and sent to Admitting to be added to pt Med Record. SIGNATURE: ELDA Jeong PATIENT NAME: Carlos Buckner DATE: March 25, 2018 TIME: 4:30 PM PAGER/CONTACT #: [phone] Observed: 03/25/2018 Status: COMPLETED Source: [place] 4:09 PM [facility] OTHER [facility]AMPUS REPOSITORY HNO ID: [id number] Author: Angel Garcia Service: Hospital Medicine Author Type: Physician Type: Progress Notes Filed: 03/25/2018 4:10 PM Note Text: DEPARTMENT OF HOSPITAL MEDICINE PROGRESS NOTE SERVICE DATE: 03/25/2018 SERVICE TIME: 1:00 PM Hospital Medicine/Primary Attending: Angel Garcia MD NIGHT AND WEEKEND COVERAGE: From 7am - 7pm, please call [phone] After 7pm, please call cross cover pager #[phone] Subjective INTERVAL HPI: 57yo M whom I am seeing for the first time today taking over the case. Patient admitted from [facility] where he was found to have NSTEMI and multiple coronary arteries with significant blockages on cardiac catheterization therefore here to get CABG. Today patient in no distress stating he has no chest pain, no dyspnea, no abdominal pain, no nausea, no vomiting, no fever/chills, and understands why he needs a CABG. VSS MEDICATIONS: Reviewed Objective PHYSICAL EXAM: BP 110/75 Pulse 83 Temp (Src) 98.2 (Oral) Resp 18 Ht 5' 8 (1.73m) Wt 235 lb 3.2 oz (106.7kg) SpO2 95% BMI 35.77 kg/(m2). Physical Exam Performed GENERAL: Alert, no distress, cooperative SKIN: Skin color, texture, turgor normal. No rashes or lesions. OROPHARYNX: Lips, mucosa, and tongue normal. Teeth and gums normal. Oropharynx normal. LUNGS: Lungs clear to auscultation, Good diaphragmatic excursion, no wheezing, no crackles CARDIAC: Normal S1 and S2; no rubs, murmurs, or gallops, RRR ABDOMEN: Abdomen soft, non-tender, BS normal, No masses or organomegaly EXTREMITIES: Extremities normal, no deformities, edema, clubbing or skin discoloration. Good capillary refill., No ulcers NEURO: Gait normal. Reflexes normal and symmetric. Sensation grossly intact, Cranial nerves II-XII intact PULSES: 2+ radial, 2+ carotid Lines, Drains, and Airways Line Peripheral Assessment Short Left Forearm 20 Gauge -- days Reviewed lines, drains, AND airways. Need to be continued . DATA: Diagnostic tests reviewed for today's visit: Most recent labs and imaging results. Assessment/Plan 1) Acute Coronary Syndrome with NSTEMI and multivessel blockages that are significant indicated above. - CABG scheduled for Wednesday Morning - Cardiology on board - Continue ASA 81mg daily - Continue Atorvastatin 80mg daily - Continue Lovenox 105mg BID - Continue Metoprolol 25mg BID 2) Type II DM: - Stopped Glimipiride ( I do not like using PO antidiabetic medications as an inpatient basis and this is not a good one to be on with high hypoglycemic risk consider stopping this at time of discharge) - Insulin sliding scale - Glucometer checks 3x/day 3) TEOFILO - Continue CPAP at night 4) HTN: - Continue Metoprolol 25mg BID - Continue Losartan 25mg daily 5) HLD - Continue Atorvastatin 80mg daily Medication and Non-Pharmacologic VTE Prophylaxis/Anticoagulants Anticoagulant AND Antiplatelet Medications Start Dose Route Frequency Ordered Stop 03/23/18 0600 aspirin 81 mg chewable tab(s) 81 mg ORAL DAILY AT 6 AM 03/22/18 0956 -- 03/21/18 2300 enoxaparin 105 mg injection (LOVENOX) 1 mg/kg/dose SUBCUTANEOUS EVERY 12 HOURS 03/21/18 2258 -- 03/21/18 224 vte non-pharmacologic prophylaxis - none indicated ([place]) 03/21/182144 vte current anticoag therapy ([place]) 03/21/182144 pneumatic compression stockings ([place]) VTE Prophylaxis: VTE prophylaxis appropriate Disposition: Inpatient Plan of care discussed with: Patient SIGNATURE: Angel Garcia MD PATIENT NAME: Carlos Buckner DATE: March 25, 2018 TIME: 1:00 PM PAGER/CONTACT #: [phone] etx [id number] ALLIED HEALTH Observed: 03/25/2018 Status: COMPLETED Source: [place] 11:02 AM CLINIC OTHER CAMPUS REPOSITORY O ID: [id number] Author: Adilene MadisonRn) KENYETTA Wallace Service: Diabetes Education Author Type: Registered Nurse Type: Allied Health Filed: 03/25/2018 11:06 AM Note Text: DIABETES EDUCATION PROGRESS NOTE SERVICE DATE: 03/25/2018 SERVICE TIME: [id number] RECOMMENDATIONS: Patient needs to follow-up with primary care physician after discharge. Prescriptions for diabetic supplies -insulin pens and pen needles. Patient has done injections with Victoza in past. He is willing to make changes for his health. PATIENT HISTORY/ASSESSMENT: Previously diagnosed: Type 2 Treatment prior to hospitalization: Oral Agent(s): and Blood Gucose Testing Has meter: Frequency of self-blood glucose monitorin times per day. Usual blood glucose results at home: variable. TOPIC(S): Survival Skills: Basic diabetes mellitus disease process Medication therapy: Oral agent(s) - Metformin (Glucophage) Injectables - Insulin lispro (Humalog) and Insulin detemir (Levemir) Injectable instructions - Storage, Selection/rotation, Injection technique, Injection site and Disposal of sharps Acute complications: Hypoglycemia and Hyperglycemia Blood glucose monitoring: Timing techniques, Logging results Blood glucose targets: Type I/Type II: Pre-meal 70-130 mg/dl, Bedtime glucose 100-140 mg/dl Patient Education/Health Promotion: Complication prevention, Diet, Exercise and Self management and follow up Diabetes Management: Hemaglobin A1C and when to call the doctor EDUCATION: Cognitive ability: Alert and Oriented. Motivation to learn: Interested. Barriers to learning: None Family support: Unable to assess - Family not present Education Type: Individual instruction Written instruction - handouts Verbal instruction Demonstration-Hands on Learning Response to education: States/Identifies and Return Demonstration. Education provided to: Patient. Teachback method used. Time Spent (Minutes): 30 SIGNATURE: Adilene Wallace RN PATIENT NAME: Carlos Buckner DATE: March 25, 2018 TIME: 11:02 AM PAGER: [phone] CASE MANAGEM Observed: 03/25/2018 Status: COMPLETED Source: [place] 9:17 AM [facility] REPOSITORY HNO ID: [id number] Author: Prabha Acosta) KENYETTA Velasquez Service: Care Management Author Type: Registered Nurse Type: Care Mgt Progress Note Filed: 03/25/2018 9:19 AM Note Text: CARE MANAGEMENT PROGRESS NOTE SERVICE DATE: 03/25/2018 SERVICE TIME: 9:18 AM LOS: 4 days Chart reviewed. Plan OR for CABG Wednesday. [facility] able to accept and following. CM to follow. SIGNATURE: Prabha Velasquez RN PATIENT NAME: Carlos Buckner DATE: March 25, 2018 TIME: 9:18 AM PAGER/CONTACT #: [phone] CONSULT PROG Observed: 03/25/2018 Status: COMPLETED Source: [place] 8:19 AM [facility] OTHER [place] REPOSITORY HNO ID: [id number] Author: Ifeoma Cadena Service: Endocrinology Author Type: Physician Type: Consult Progress Note Filed: 03/26/2018 8:23 AM Note Text: ENDOCRINOLOGY CONSULT PROGRESS NOTE SERVICE DATE: 03/26/2018 SERVICE TIME: 8:1-am Subjective INTERVAL HPI: pt seen for diabetes mellitus; no, complaints today, taking po, BS's 200's on Levemir 30 units qam and prandial humalog 8 units qac tid plus correction; DIET CARBOHYDRATE CONTROLLED Current hospital medications: insulin detemir U-100 30 Units injection (long acting) (LEVEMIR) 30 Units SUBCUTANEOUS DAILY (8 AM) insulin lispro 8 Units pen (rapid acting) (HumaLOG KWIKPEN) 8 Units SUBCUTANEOUS w MEALS insulin lispro pen (rapid acting) (HumaLOG KWIKPEN) SUBCUTANEOUS w MEALS aspirin 81 mg chewable tab(s) 81 mg ORAL DAILY (6 AM) mupirocin ointment (BACTROBAN) NASAL BID 0.9% NaCl 3-5 mL 3-5 mL INTRAVENOUS q 12 H atorvastatin 80 mg tab(s) (LIPITOR) 80 mg ORAL AT BEDTIME dextrose 40 % 15 g 15 g ORAL PRN glucagon 1 mg injection (GLUCAGEN) 1 mg INTRAMUSCULAR PRN dextrose 50% in water 25 mL syringe 12.5 g INTRAVENOUS PRN enoxaparin 105 mg injection (LOVENOX) 1 mg/kg/dose SUBCUTANEOUS q 12 HR nitroglycerin sublingual 0.4 mg tab(s) (NITROQUICK) 0.4 mg SUBLINGUAL PRN metoprolol tartrate (short acting) 25 mg tab(s) (LOPRESSOR) 25 mg ORAL q 12 H losartan 25 mg tab(s) (COZAAR) 25 mg ORAL DAILY Objective PHYSICAL EXAM: BP 110/80 Pulse 65 Temp (Src) 97 (Temporal Artery) Resp 18 Ht 5' 8 (1.73m) Wt 235 lb 3.2 oz (106.7kg) SpO2 98% BMI 35.77 kg/(m2). General: Well appearing, alert, in no acute distress, well- hydrated, well nourished. and Obese Skin: skin color, texture, turgor normal, no rashes or lesions. Head: normocephalic, no masses, lesions, tenderness or abnormalities. Eyes: SUSAN,EOMI Oropharynx: moist Neck: Supple, no adenopathy; thyroid symmetric, normal size, no bruits Heart: RRR without murmur, gallop, or rubs. No ectopy Abdomen: soft, non-tender, positive bowel sounds Extremities: no edema, no calluses or ulcers present. Peripheral Pulses: posterior tibial and doralis pedis pulses 2+ and symmetrical ? DATA: Diagnostic tests reviewed for today's visit: Most recent labs and imaging results. Assessment/Plan DM (diabetes mellitus), type 2, uncontrolled; HbA1c 8.2 on oral antihyperglycemics at home; now with complications; ? CAD (coronary artery disease)severe. ? ACS (acute coronary syndrome) scheduled for revascularization ? Hyperlipemia POA: Yes Assessment AND Plan: per 1 service ? TEOFILO (obstructive sleep apnea) POA: Yes Assessment AND Plan: per 1 service. ? Recommendations: discontinued oral antihyperglycemics and continue rx insulin Levemir 30 units daily, humalog 8 units qac tid plus correction; will initiate iv insulin prior to OR for CABG; will keep BS under tight control; will make recommendations SIGNATURE: Ifeoma Cadena MD PATIENT NAME: Carlos Buckner DATE: March 25, 2018 PAGER: [phone] PT ED Observed: 03/24/2018 Status: COMPLETED Source: [place] 5:04 PM CLINIC OTHER CAMPUS REPOSITORY HNO ID: [id number] Author: Jazlyn Galicia Service: Cardiac Surgery Author Type: Nurse Practitioner Type: Patient Education Filed: 03/24/2018 5:06 PM Note Text: PATIENT EDUCATION TOPIC: PROCEDURE / SURGERY: Procedure/Surgery: CABG PATIENT NAME: Carlos Buckner PATIENT LOCATION: [place] [address]/[place] [id number]* READINESS TO LEARN COGNITIVE ABILITY: Alert and oriented MOTIVATION TO LEARN: Eager Interested FAMILY SUPPORT: High - Very involved in pt care INSTRUCTION PROVIDED TO: Patient and family member PATIENT LEARNS BEST BY: Individual Instruction Written Instruction - Hand-outs FACTORS AFFECTING LEARNING: None PHYSICAL LIMITATIONS AFFECTING LEARNING: None LEARNING RESPONSE DIAGNOSIS: ADULT: Coronary Artery Disease PATIENT/FAMILY RESPONSE: Verbalizes understanding of: PRE-OPERATIVE INSTRUCTIONS-Correct action to take to follow pre-operative instructions Information received as demonstrated by interest and questions METHOD OF INSTRUCTION: Individual instruction Written instruction - handouts FOLLOW-UP PLAN: Complete - No need for follow-up INSTRUCTIONAL AIDS USED: Guide to Health and Recovery Binder Cardiac Surgery SUPPLEMENTAL MATERIAL PROVIDED TO PATIENT: None REFERRAL (RECOMMENDATION): None Electronically Signed By: Jazlyn Galicia APRN.[employer] CONSULT Observed: 03/24/2018 Status: COMPLETED Source: [place] 12:45 PM CLINIC OTHER CAMPUS REPOSITORY HNO ID: [id number] Author: Ifeoma Cadena Service: Endocrinology Author Type: Physician Type: Consults Filed: 03/24/2018 2:45 PM Note Text: DIABETES INITIAL CONSULT PATIENT NAME: Carlos Buckner SERVICE DATE: 03/24/2018 SERVICE TIME: 12:45pm REASON FOR CONSULT: DM Type 2 REQUESTING PHYSICIAN:No referring provider defined for this encounter. PRIMARY CARE PHYSICIAN: Rick Camacho MD Subjective HISTORY OF PRESENT ILLNESS: Mr. Buckner is a 57 year old male presenting as a new patient to me regarding DM Type 2. He was initially diagnosed with diabetes 14 years ago. He does have a family history of diabetes mellitus in his Grandparents. The patient has no known microvascular complications of diabetes. Carlos reports the following diabetic macrovascular complications: CAD awaiting CABG. 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 His current diabetes regimen is metformin, jardiance and glimepiride. Regarding symptoms of hyperglycemia, he is not experiencing any symptoms such as polyuria, polydipsia, nocturia or rapid weight loss or blurry vision. 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 On Wednesday, he woke up in pain rated 4-7/10, pressure-like pain that won't resolve like before, so he brought himself to ED. He had initially negative troponin, his EKG at the time showed: sinus tachycardia with no acute EKG changes. He was then treated with ASA and nitro with improvement in symptoms but his troponin subsequent positive post medical therapy of ASA and Nitro, which peaked at 2.14. He underwent Heart cath and found 3 vessel disease then was loaded with Plavix and transferred to [facility] for CABG evaluation. Patient denied hx of CHF, Arrhythmia, CVA, COPD or leg edema. Was evaluated and recommended CABG tentatively on Wednesday 03/28. PAST MEDICAL HISTORY Diagnosis Date - HLD (hyperlipidemia) - HTN (hypertension) 06/10/2017 - Obstructive sleep apnea - Type II or unspecified type diabetes mellitus without mention of complication, not stated as uncontrolled PAST SURGICAL HISTORY Procedure Laterality Date - COLONOSCOP W/ OR W/O BRSH SPEC 01/17/15 Colonoscopy - KIDNEY SURGERY HX - LITHOTRIPSY PROC UNILATERAL 2006 left side done in [place] - PAST SURGICAL HISTORY OF dog bite age 5 - PAST SURGICAL HISTORY OF chainsaw injury FAMILY HISTORY Problem Relation Age of Onset - other (polio) Mother - Emphysema Father - Diabetes Maternal Grandfather - COPD Paternal Grandmother - COPD Paternal Grandfather Social History Substance Use Topics - Smoking status: Never Smoker - Smokeless tobacco: Never Used - Alcohol use No CURRENT MEDICATION: Current Facility-Administered Medications: insulin detemir U-100 30 Units injection (long acting) (LEVEMIR) 30 Units SUBCUTANEOUS DAILY (8 AM) Ifeoma Cil[place]a insulin lispro 8 Units pen (rapid acting) (HumaLOG KWIKPEN) 8 Units SUBCUTANEOUS w MEALS Ifeoma [place]iltea insulin lispro pen (rapid acting) (HumaLOG KWIKPEN) SUBCUTANEOUS w MEALS Ifeoma [place] aspirin 81 mg chewable tab(s) 81 mg ORAL DAILY (6 AM) Alex (Digital Media Producer) APRN. PratimaWOODWORKING BENCH CARPENTER 81 mg at 03/24/18 0617 mupirocin ointment (BACTROBAN) NASAL BID Alex (Digital Media Producer) APRN. PratimaWOODWORKING BENCH CARPENTER 0.9% NaCl 3-5 mL 3-5 mL INTRAVENOUS q 12 H Eliazar Lutz 5 mL at 03/24/18 0850 atorvastatin 80 mg tab(s) (LIPITOR) 80 mg ORAL AT BEDTIME Veronica Tetyuk 80 mg at 03/23/18 2210 dextrose 40 % 15 g 15 g ORAL PRN Veronica Tetyuk Or glucagon 1 mg injection (GLUCAGEN) 1 mg INTRAMUSCULAR PRN Veronica Tetyuk Or dextrose 50% in water 25 mL syringe 12.5 g INTRAVENOUS PRN Veronica Tetyuk enoxaparin 105 mg injection (LOVENOX) 1 mg/kg/dose SUBCUTANEOUS q 12 HR Veronica Tetyuk 105 mg at 03/24/18 0851 nitroglycerin sublingual 0.4 mg tab(s) (NITROQUICK) 0.4 mg SUBLINGUAL PRN Veronica Tetyuk metoprolol tartrate (short acting) 25 mg tab(s) (LOPRESSOR) 25 mg ORAL q 12 H Veronica Tetyuk 25 mg at 03/24/18 0851 losartan 25 mg tab(s) (COZAAR) 25 mg ORAL DAILY Veronica Tetyuk 25 mg at 03/24/18 0851 Allergies As of Date: 03/21/2018 Allergen Noted Reaction OYSTERS 06/30/2014 Rash and Itching Fully Assessed 03/21/2018 General: no fever, chills or acute changes in weight in the last 6 months Skin: no rashes, pruritis or dry skin Eyes: no blurred or double vision or eye pain Cardiac: as per HPI Pulmonary: as per HPI GI: denies nausea, vomiting, diarrhea or constipation Neuro: denies numbnes/tingling in hands or feet and denies seizures Musc: denies history of upper or lower extremity weakness Endocrine: denies polyuria, polydipsia, nocturia, blurry vision or excessive fatigue Hematology: Negative for anemia, easy bleeding and bruising. Objective PHYSICAL EXAM: BP 108/61 Pulse 73 Temp 36.5 ?C (97.7 ?F) (Oral) Resp 16 Ht 172.7 cm (5' 8) Wt 106.7 kg (235 lb 3.2 oz) SpO2 100% BMI 35.76 kg/m2 General: Well appearing, alert, in no acute distress, well- hydrated, well nourished. and Obese Skin: skin color, texture, turgor normal, no rashes or lesions. Head: normocephalic, no masses, lesions, tenderness or abnormalities. Eyes: SUSAN,EOMI Oropharynx: moist Neck: Supple, no adenopathy; thyroid symmetric, normal size, no bruits Heart: RRR without murmur, gallop, or rubs. No ectopy Abdomen: soft, non-tender, positive bowel sounds Extremities: no edema, no calluses or ulcers present. Peripheral Pulses: posterior tibial and doralis pedis pulses 2+ and symmetrical DATA: Diagnostic tests reviewed for today's visit: Most recent labs and imaging results. Impression/Recommendations DM (diabetes mellitus), type 2, uncontrolled; HbA1c 8.2 on oral antihyperglycemics at home; now with complications; CAD (coronary artery disease)severe. ACS (acute coronary syndrome) scheduled for revascularization Hyperlipemia POA: Yes Assessment AND Plan: per 1 service TEOFILO (obstructive sleep apnea) POA: Yes Assessment AND Plan: per 1 service. Recommendations: discontinue oral antihyperglycemics and start insulin Levemir 30 units daily, humalog 8 units qac tid plus correction; will initiate iv insulin prior to OR for CABG; will keep BS under tight control; will make recommendations and home going instructions; diabetes edu and nutrition to evaluate this patient during this hospitalization; most likely he will need insulin at home. Goal HbA1c 6-7 (without any hypoglycemia). SIGNATURE: Ifeoma Cadena MD DATE: March 24, 2018 TIME: 2:33 PM PROGRESS Observed: 03/24/2018 Status: COMPLETED Source: [place] 12:15 PM [facility] REPOSITORY HNO ID: [id number] Author: Mike Rose Service: Thoracic Surgery Author Type: Physician Type: Progress Notes Filed: 03/24/2018 12:18 PM Note Text: Patient seen along with in hospital room. Surgical Discussion: I have discussed the benefits, risks, indications, and alternatives to surgery with the patient. Risks discussed include but are not limited to infection, bleeding, cardiac dysrhythmias, myocardial infarction, stroke, , blood clots, pneumonia, wound complications, wound infection, blood transfusion with associated risks of AIDS or Hepatitis, and the occasional need for reoperation for bleeding or other complications. Expected OR, ICU, hospitalization, and home recovery times were discussed. OR tentatively for Wednesday given age and Plavix loading in [place] to try and avoid transfusions. They state they understand, have no further questions , and wish to proceed as proposed. PROGRESS Observed: 03/24/2018 Status: COMPLETED Source: [place] 12:03 PM [facility] REPOSITORY HNO ID: [id number] Author: Angel Garcia Service: Hospital Medicine Author Type: Physician Type: Progress Notes Filed: 03/24/2018 12:04 PM Note Text: DEPARTMENT OF HOSPITAL MEDICINE PROGRESS NOTE SERVICE DATE: 03/24/2018 SERVICE TIME: 12:00 PM Hospital Medicine/Primary Attending: Angel Garcia MD NIGHT AND WEEKEND COVERAGE: From 7am - 7pm, please call [phone] After 7pm, please call cross cover pager #[phone] Subjective INTERVAL HPI: 57yo M whom I am seeing for the first time today taking over the case. Patient admitted from [facility] where he was found to have NSTEMI and multiple coronary arteries with significant blockages on cardiac catheterization therefore here to get CABG. Today patient in no distress stating he has no chest pain, no dyspnea, no abdominal pain, no nausea, no vomiting, no fever/chills, and understands why he needs a CABG. VSS MEDICATIONS: Reviewed Objective PHYSICAL EXAM: BP 108/61 Pulse 73 Temp (Src) 97.7 (Oral) Resp 16 Ht 5' 8 (1.73m) Wt 235 lb 3.2 oz (106.7kg) SpO2 100% BMI 35.77 kg/(m2). Physical Exam Performed GENERAL: Alert, no distress, cooperative SKIN: Skin color, texture, turgor normal. No rashes or lesions. OROPHARYNX: Lips, mucosa, and tongue normal. Teeth and gums normal. Oropharynx normal. LUNGS: Lungs clear to auscultation, Good diaphragmatic excursion, no wheezing, no crackles CARDIAC: Normal S1 and S2; no rubs, murmurs, or gallops, RRR ABDOMEN: Abdomen soft, non-tender, BS normal, No masses or organomegaly EXTREMITIES: Extremities normal, no deformities, edema, clubbing or skin discoloration. Good capillary refill., No ulcers NEURO: Gait normal. Reflexes normal and symmetric. Sensation grossly intact, Cranial nerves II-XII intact PULSES: 2+ radial, 2+ carotid Lines, Drains, and Airways Line Peripheral Assessment Short Left Forearm 20 Gauge -- days Reviewed lines, drains, AND airways. Need to be continued . DATA: Diagnostic tests reviewed for today's visit: Most recent labs and imaging results. Assessment/Plan 1) Acute Coronary Syndrome with NSTEMI and multivessel blockages that are significant indicated above. - Cardiothoracic consulted awaiting on CABG planning - Cardiology on board - Continue ASA 81mg daily - Continue Atorvastatin 80mg daily - Continue Lovenox 105mg BID - Continue Metoprolol 25mg BID 2) Type II DM: - Stopped Glimipiride ( I do not like using PO antidiabetic medications as an inpatient basis and this is not a good one to be on with high hypoglycemic risk consider stopping this at time of discharge) - Insulin sliding scale - Glucometer checks 3x/day 3) TEOFILO - Continue CPAP at night 4) HTN: - Continue Metoprolol 25mg BID - Continue Losartan 25mg daily 5) HLD - Continue Atorvastatin 80mg daily Medication and Non-Pharmacologic VTE Prophylaxis/Anticoagulants Anticoagulant AND Antiplatelet Medications Start Dose Route Frequency Ordered Stop 03/23/18 0600 aspirin 81 mg chewable tab(s) 81 mg ORAL DAILY AT 6 AM 03/22/18 0956 -- 03/21/18 230 enoxaparin 105 mg injection (LOVENOX) 1 mg/kg/dose SUBCUTANEOUS EVERY 12 HOURS 03/21/182257 -- 03/21/182244 vte non-pharmacologic prophylaxis - none indicated (in,[place]) 03/21/182144 vte current anticoag therapy (in,[place]) 03/21/182144 pneumatic compression stockings (in,[place]) VTE Prophylaxis: VTE prophylaxis appropriate Disposition: Inpatient Plan of care discussed with: Patient SIGNATURE: Angel Garcia MD PATIENT NAME: Carlos Buckner DATE: March 24, 2018 TIME: 12:00 PM PAGER/CONTACT #: [phone] etx [id number] HEMOGRAM/DIFF Collected: 03/24/2018 Status: F Source: [facility] 3:40 AM HEALTH SYSTEM REPOSITORY TYPE CODE TESTS RESULT OUT OF REFERENCE UNITS RANGE LAB WBC(LOINC) 4.23-9.07 thou/cmm WBC 4.86 LAB RBC(LOINC) 4.63-6.08 mil/cmm Low RBC 4.48 LAB HGB(LOINC) 13.7-17.5 g/dL Hgb 14.2 LAB HCT(LOINC) 40.1-51.0 % Hct 40.9 LAB MCV(LOINC) 83.2-95.6 fl MCV 91.3 LAB MCH(LOINC) 25.7-32.2 pg MCH 31.7 LAB MCHC(LOINC 32.3-36.5 % ) MCHC 34.7 LAB RDW(LOINC) 11.6-14.4 % RDW 12.2 LAB RDWSD(LOIN 36.1-45.8 fl C) RDW SD 40.4 LAB PLT(LOINC) 141-365 thou/cmm Platelet 173 LAB MPV(LOINC) 8.7-12.0 fl MPV 9.9 LAB SEG(LOINC) % Seg Neutrophil 58.1 LAB IGRE(LOINC % ) Immature Grans 0.20 LAB LYMPH(LOIN % C) Lymphocyte 29.0 LAB MNO(LOINC) % Monocyte 11.1 LAB EOSIN(LOIN % C) Eosinophil 1.2 LAB BASO(LOINC % ) Basophil 0.4 LAB SEGN(LOINC 1.78-5.38 thou/cmm ) Abs. Neut (ANC) 2.82 LAB IGAB(LOINC 0.00-0.05 thou/cmm ) Abs Immature Grans 0.01 LAB LYMN(LOINC 0.84-2.85 thou/cmm ) Abs. Lymph 1.41 LAB MONON(LOIN 0.30-0.82 thou/cmm C) Abs. Lander 0.54 LAB EOSN(LOINC 0.04-0.54 thou/cmm ) Abs. Eosin 0.06 LAB BASON(LOIN 0.01-0.08 thou/cmm C) Abs. Baso 0.02 Performed By: #### CBCD1 #### [place] [address] BASIC PANEL Collected: 03/24/2018 Status: F Source: [facility] 3:40 AM HEALTH SYSTEM REPOSITORY TYPE CODE TESTS RESULT OUT OF REFERENCE UNITS RANGE LAB NA(LOINC) 136-145 mEq/L Sodium Blood 139 LAB K(LOINC) 3.5-5.1 mEq/L Potassium Blood 3.6 LAB CL(LOINC) 98-107 mEq/L Chloride Blood 105 LAB CO2(LOINC) 21-32 mEq/L CO2 Blood 27 LAB GLU(LOINC) 70-99 mg/dL Glucose High Blood 156 LAB BUN(LOINC) 7-18 mg/dL BUN Blood 17 LAB CREA(LOINC 0.67-1.17 mg/dL ) Creatinine Blood 0.98 LAB CA(LOINC) 8.5-10.1 mg/dL Calcium Blood 8.8 LAB ANGAP(LOIN 8-16 C) Anion Gap 11 Performed By: #### P8 #### [place] [id number] PROGRESS Observed: 03/23/2018 Status: COMPLETED Source: [place] 4:34 PM CLINIC OTHER CAMPUS REPOSITORY HNO ID: [id number] Author: Angel Garcia Service: Hospital Medicine Author Type: Physician Type: Progress Notes Filed: 03/23/2018 4:40 PM Note Text: DEPARTMENT OF HOSPITAL MEDICINE PROGRESS NOTE SERVICE DATE: 03/23/2018 SERVICE TIME: 4:34 PM Hospital Medicine/Primary Attending: Angel Garcia MD NIGHT AND WEEKEND COVERAGE: From 7am - 7pm, please call [phone] After 7pm, please call cross cover pager #[phone] Subjective INTERVAL HPI: 57yo M whom I am seeing for the first time today taking over the case. Patient admitted from [facility] where he was found to have NSTEMI and multiple coronary arteries with significant blockages on cardiac catheterization therefore here to get CABG. Today patient in no distress stating he has no chest pain, no dyspnea, no abdominal pain, no nausea, no vomiting, no fever/chills, and understands why he needs a CABG. VSS MEDICATIONS: Reviewed Objective PHYSICAL EXAM: BP 121/65 Pulse 82 Temp (Src) 98.1 (Oral) Resp 18 Ht 5' 8 (1.73m) Wt 235 lb 3.2 oz (106.7kg) SpO2 98% BMI 35.77 kg/(m2). Physical Exam Performed GENERAL: Alert, no distress, cooperative SKIN: Skin color, texture, turgor normal. No rashes or lesions. OROPHARYNX: Lips, mucosa, and tongue normal. Teeth and gums normal. Oropharynx normal. LUNGS: Lungs clear to auscultation, Good diaphragmatic excursion, no wheezing, no crackles CARDIAC: Normal S1 and S2; no rubs, murmurs, or gallops, RRR ABDOMEN: Abdomen soft, non-tender, BS normal, No masses or organomegaly EXTREMITIES: Extremities normal, no deformities, edema, clubbing or skin discoloration. Good capillary refill., No ulcers NEURO: Gait normal. Reflexes normal and symmetric. Sensation grossly intact, Cranial nerves II-XII intact PULSES: 2+ radial, 2+ carotid Lines, Drains, and Airways Line Peripheral Assessment Short Left Forearm 20 Gauge -- days Reviewed lines, drains, AND airways. Need to be continued . DATA: Diagnostic tests reviewed for today's visit: Most recent labs and imaging results. Assessment/Plan 1) Acute Coronary Syndrome with NSTEMI and multivessel blockages that are significant indicated above. - Cardiothoracic consulted awaiting on CABG planning - Cardiology on board - Continue ASA 81mg daily - Continue Atorvastatin 80mg daily - Continue Lovenox 105mg BID - Continue Metoprolol 25mg BID 2) Type II DM: - Stopped Glimipiride ( I do not like using PO antidiabetic medications as an inpatient basis and this is not a good one to be on with high hypoglycemic risk consider stopping this at time of discharge) - Insulin sliding scale - Glucometer checks 3x/day 3) TEOFILO - Continue CPAP at night 4) HTN: - Continue Metoprolol 25mg BID - Continue Losartan 25mg daily 5) HLD - Continue Atorvastatin 80mg daily Medication and Non-Pharmacologic VTE Prophylaxis/Anticoagulants Anticoagulant AND Antiplatelet Medications Start Dose Route Frequency Ordered Stop 03/23/18 0600 aspirin 81 mg chewable tab(s) 81 mg ORAL DAILY AT 6 AM 03/22/18 0956 -- 03/21/18 2300 enoxaparin 105 mg injection (LOVENOX) 1 mg/kg/dose SUBCUTANEOUS EVERY 12 HOURS 03/21/182257 -- 03/21/182244 vte non-pharmacologic prophylaxis - none indicated (in,[place]) 03/21/182144 vte current anticoag therapy ([place], [place]) 03/21/182144 pneumatic compression stockings ([place]) VTE Prophylaxis: VTE prophylaxis appropriate Disposition: Inpatient Plan of care discussed with: Patient SIGNATURE: Angel Garcia MD PATIENT NAME: Carlos Buckner DATE: March 23, 2018 TIME: 4:34 PM PAGER/CONTACT #: [phone] etx [id number] CASE MGT INIT Observed: 03/23/2018 Status: COMPLETED Source: [facility] 4:04 PM CLINIC OTHER CAMPUS REPOSITORY HNO ID: [id number] Author: Prabha Acosat) KENYETTA Velasquez Service: Care Management Author Type: Registered Nurse Type: Care Mgt Initial Assessment Filed: 03/23/2018 4:07 PM Note Text: CARE MANAGEMENT: ASSESSMENT AND DISCHARGE PLAN SERVICE DATE: 03/23/2018 SERVICE TIME: 4:04 PM PRIMARY CARE PHYSICIAN: Rick Camacho MD ADMISSION STATUS: Inpatient Needs Prior to Discharge: To Be Determined 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 No Advance Directive: Current Advance Directive: None Laminating Press Operator Attempted to Assist with AD Completion: No Unable to Assist Due To:: Other: See Comment (Pt would like SW for AD ) Health Literacy: 1. How often do you need to have someone help you when you read instructions, pamphlets, or other written material from your doctor or pharmacy? Never - 1 2. How confident are you filling out medical forms by yourself? Extremely - 1 If Patient scores > 3 on either question, the following interventions were put into place: Patient did not score > 3 FUNCTIONAL AND COGNITIVE/BEHAVIORAL PRIOR TO ADMISSION: Baseline Mental Status: Alert AND Oriented, Person, Place , Time and Situation Functional Status: Independent Does Patient Currently Receive Any Community Services or Home Care? None Equipment Prior to Admission: Bi-level Positive Airway Pressure/Continuous Positive Airway Pressure Has the Patient Been in a Shelter Facility in the Past 30 days? 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 No Caregiver Needed Patient's transition needs and plan for meeting these needs: . Does the patient have an acute stroke diagnosis, or has the patient had a stroke during this admission? No Medication Adherence: I am convinced of the importance of my prescription medication: Agree mostly - 0 I worry that my prescription medication will do more harm than good to me Disagree mostly - 0 I feel financially burdened by my box-ov-prazmi expenses for my prescription medication: Disagree mostly -0 Patient is categorized as low risk < 2 Are you interested in bedside delivery of your medications? Yes Food Concerns: In the Last Month, Have You had Trouble Getting Food? No trouble getting food During the Last Month, Have You Worried Whether Your Food Would Run Out Before You Had Enough Money to Buy More? No Is the Patient Psychosocially Complex? No ASSESSMENT AND PLAN: Medical Needs: None Psychosocial Needs: None FREEDOM OF CHOICE EXPLAINED: N/A POTENTIAL TRANSITION PLANS To Be Determined Spoke with pt at the bedside. 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 Plan possible CABG next week - await surgery schedule. Anticipate home with hhc post op- VNS requested. Pt is to establish a new PCP in [facility]. Will follow. SIGNATURE: Prabha Velasquez RN PATIENT NAME: Carlos Buckner DATE: March 23, 2018 TIME: 4:04 PM PAGER/CONTACT #: [phone] [id number] LEAD ELECTROCARDIOGRAM Observed: 03/23/2018 Status: F Source: [place] 1:48 PM [facility] REPOSITORY [facility] Cardiovascular Services [address] [place] [address] 12 Lead EKG 03/20/18 0451 MR#: [id number] Acct: [id number] Name: CARLOS BUCKNER Rep #: [id number] : 1960 [id number] From: Vlad Rodriguez MD Attending Dr: Marek Whitt MD Status: DIS IN Ordering Dr: Vlad Rodriguez MD Date: 03/20/18 Location: [facility] Sex: M C Admitted: 03/19/18 Test Reason : A EKG Blood Pressure : / mmHG Vent. Rate : 074 BPM Atrial Rate : 074 BPM P-R Int : 176 ms QRS Dur : 092 ms QT Int : 414 ms P-R-T Axes : 065 086 099 degrees QTc Int : 459 ms Normal sinus rhythm Cannot rule out Inferior infarct , age undetermined Abnormal ECG Confirmed by JENNIFER ISRAEL, VLAD ([id number]), scientific editor SABRINA DEVLIN ([id number]) on 03/23/2018 1:48:14 PM Referred By: EARL Confirmed By:VLAD RODRIGUEZ MD 03/23/18 1348 Date Vlad Rodriguez MD CC: No Primary Care Physician; Marek Whitt MD; Vlad Rodriguez MD Signed 12 LEAD ELECTROCARDIOGRAM Observed: 03/23/2018 Status: F Source: [place] 1:45 PM [facility] REPOSITORY [facility] Cardiovascular Services [address] [place] [address] 12 Lead EKG 03/21/18 0510 MR#: [id number] Acct: [id number] Name: CARLOS BUCKNER Rep #: [id number] : 1960 57 From: Vlad Rodriguez MD Attending Dr: Marek Whitt MD Status: DIS IN Ordering Dr: Vlad Rodriguez MD Date: 03/21/18 Location: [facility] Sex: M C Admitted: 03/19/18 Test Reason : AMEKG Blood Pressure : / mmHG Vent. Rate : 080 BPM Atrial Rate : 080 BPM P-R Int : 178 ms QRS Dur : 094 ms QT Int : 388 ms P-R-T Axes : 055 073 095 degrees QTc Int : 447 ms Normal sinus rhythm Low voltage QRS Nonspecific T wave abnormality Abnormal ECG Confirmed by JENNIFER ISRAEL, VLAD ([id number]), scientific editor SABRINA DEVLIN ([id number]) on 03/23/2018 1:44:53 PM Referred By: EARL Confirmed By:VLAD RODRIGUEZ MD 03/23/18 1345 Date Vlad Rodriguez MD CC: No Primary Care Physician; Marek Whitt MD; Vlad Rodriguez MD Signed CONSULT PROG Observed: 03/23/2018 Status: COMPLETED Source: [place] 1:06 PM CLINIC OTHER CAMPUS REPOSITORY HNO ID: [id number] Author: Anel Toro Service: Cardiovascular Medicine Author Type: Nurse Practitioner Type: Consult Progress Note Filed: 03/23/2018 1:23 PM Note Text: CARDIOLOGY CONSULT PROGRESS NOTE CARDIOLOGY ATTENDING: Dr. Hendrix Date and Reason for initial consult: chest pain, NSTEMI INTERVAL HISTORY: Pt transferred her from [place] for consideration for CABG. Pt presented with symptoms of chest pain with radiation to bilateral shoulders, and anterior neck with mild SOB, prior to his presentation, he had symptoms that would resolve with rest. Cath with severer 3 vessel CAD, echo with normal lv function. 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 Pt here with plavix wash out, likely for OR early next week. PERTINENT ROS: Denies complaints of chest pain, palpitations, or SOB MEDICATIONS: Current hospital medications: aspirin 81 mg chewable tab(s) 81 mg ORAL DAILY (6 AM) mupirocin ointment (BACTROBAN) NASAL BID 0.9% NaCl 3-5 mL 3-5 mL INTRAVENOUS q 12 H glimepiride 4 mg tab(s) (AMARYL) 4 mg ORAL BID w MEALS atorvastatin 80 mg tab(s) (LIPITOR) 80 mg ORAL AT BEDTIME dextrose 40 % 15 g 15 g ORAL PRN glucagon 1 mg injection (GLUCAGEN) 1 mg INTRAMUSCULAR PRN dextrose 50% in water 25 mL syringe 12.5 g INTRAVENOUS PRN enoxaparin 105 mg injection (LOVENOX) 1 mg/kg/dose SUBCUTANEOUS q 12 HR nitroglycerin sublingual 0.4 mg tab(s) (NITROQUICK) 0.4 mg SUBLINGUAL PRN metoprolol tartrate (short acting) 25 mg tab(s) (LOPRESSOR) 25 mg ORAL q 12 H losartan 25 mg tab(s) (COZAAR) 25 mg ORAL DAILY insulin lispro pen (rapid acting) (HumaLOG KWIKPEN) SUBCUTANEOUS w MEALS AND HS PHYSICAL EXAM: Vital Signs 03/22/186 03/23/18 0521 03/23/18 0800 03/23/18 1200 BP: 123/65 122/71 117/78 121/65 Pulse: 87 78 84 82 Resp: Temp: 37 ?C (98.6 ?F) 36.8 ?C (98.2 ?F) 36.4 ?C (97.5 ?F) 36.7 ?C (98.1 ?F) TempSrc: Oral Oral Temporal Artery Oral SpO2: 96% 98% 98% 98% Weight: Height: Temp (24hrs), Av.8 ?C (98.2 ?F), Min:36.4 ?C (97.5 ?F), Max:37 ?C (98.6 ?F) Intake/Output: Intake/Output Summary (Last 24 hours) at 03/23/18 1306 Last data filed at 03/23/18 0800 Gross per 24 hour Intake 360 ml Output 0 ml Net 360 ml Oxygen therapy: RA Admit Weight: 235lbs Gen: AANDO x 3 Neck: no jugular venous distention Cardiac: S1, S2+ RRR without murmur, gallop, or rubs. No ectopy. Resp: clear to auscultation bilaterally Abd: Soft, non-tender. Bowel sounds normal. No masses, organomegaly, hernias. Ext: no edema, moves all extremities with no apparent weakness Tele: normal sinus rhythm HR 70-80's Labs: No results found for this basename: CK:3,MB:3,MBP:3,CKMBP:3,TROPT:3 Recent Labs 03/22/18 1024 03/22/18 0507 WBC -- 6.81 HB -- 13.8 HCT -- 40.5 PLT -- 202 INR 1.06 -- Recent Labs 03/22/18 0507 NA 137 K 3.8 CHLOR 104 CO2 25 BUN 22* CREAT 0.93 GLUC 200* ALKPHOS 110 ALT 24 AST 8* Cholesterol, Total 119 06/10/2017 HDL Cholesterol 27 06/10/2017 LDL Chol, [place] 31 06/10/2017 DATA: Echo 03/21/2018 EF 55 % 1+ mitral insufficiency triv TR RVSP = 25 mmHg Left Heart Catheterization, 03/21/18: EF 55% with hypokinetic anterior, apical, and inferior mulligan. LVEDP 33. 75% mid LAD, 85% pD1, 95% mOM1, 100% pOM1, 85% pRCA, 100% mRDA with collaterals to dRCA from L to R ASSESSMENT AND PLAN: 1. NSTEMI with 3 vessel CAD: currently pain free. Echo as above, normal Lv fx. Continue ASA, BB, losartan, and lovenox. CTS on consult, likely for OR early next week per pt, 2/2 plavix washout. SL NTG for chest pain prn, could add NTP as well if needed 2. Hypertension: stable on current regimen. 3. Hyperlipidemia: on atorvastatin 80 mg qhs. 4. DM: per primary team. 5. TEOFILO: compliant with CPAP. 6. Obesity Will sign off and follow peripherally, please call if assistance needed. Thank you SIGNATURE:Anel Toro APRN.[employer] PAGER:[phone] DATE / TIME of SERVICE: March 23, 2018 1:06 PM This note is not final until Authenticated by responsible provider. PROGRESS Observed: 03/22/2018 Status: COMPLETED Source: [place] 7:07 PM CLINIC OTHER CAMPUS REPOSITORY HNO ID: [id number] Author: Mike Rose Service: Thoracic Surgery Author Type: Physician Type: Progress Notes Filed: 03/22/2018 7:08 PM Note Text: Patient not seen yet. Cath films briefly reviewed. Has had plavix load and dose(s) preop w/u eval in progress. PROGRESS Observed: 03/22/2018 Status: COMPLETED Source: [place] 5:07 PM CLINIC OTHER CAMPUS REPOSITORY HNO ID: [id number] Author: Mirta Ruiz Service: Hospital Medicine Author Type: Physician Type: Progress Notes Filed: 03/22/2018 5:10 PM Note Text: INTERNAL MEDICINE PROGRESS NOTE ADMIT DATE: 03/21/2018 9:06 PM SERVICE DATE: 03/22/2018 INTERVAL HISTORY: F/u : CAD S: Pt has no complaints. Pt denies any chest pain, palpitations, nausea, vomiting, diarrhea, constipation, shortness of breath, light head, dizziness, headache, dysuria, abdominal pain Advised pt to ambulate hallways. MEDICATIONS: Current hospital medications: [START ON 03/23/2018] aspirin 81 mg chewable tab(s) 81 mg ORAL DAILY (6 AM) mupirocin ointment (BACTROBAN) NASAL BID 0.9% NaCl 3-5 mL 3-5 mL INTRAVENOUS q 12 H glimepiride 4 mg tab(s) (AMARYL) 4 mg ORAL BID w MEALS atorvastatin 80 mg tab(s) (LIPITOR) 80 mg ORAL AT BEDTIME dextrose 40 % 15 g 15 g ORAL PRN glucagon 1 mg injection (GLUCAGEN) 1 mg INTRAMUSCULAR PRN dextrose 50% in water 25 mL syringe 12.5 g INTRAVENOUS PRN enoxaparin 105 mg injection (LOVENOX) 1 mg/kg/dose SUBCUTANEOUS q 12 HR nitroglycerin sublingual 0.4 mg tab(s) (NITROQUICK) 0.4 mg SUBLINGUAL PRN metoprolol tartrate (short acting) 25 mg tab(s) (LOPRESSOR) 25 mg ORAL q 12 H losartan 25 mg tab(s) (COZAAR) 25 mg ORAL DAILY insulin lispro pen (rapid acting) (HumaLOG KWIKPEN) SUBCUTANEOUS w MEALS AND HS PHYSICAL EXAM: VITAL SIGNS 03/22/18 0504 03/22/18 0800 03/22/18 1200 03/22/18 1600 BP: 118/73 126/69 131/75 124/75 Pulse: 80 87 79 82 Resp: Temp: 36.6 ?C (97.9 ?F) 36.4 ?C (97.5 ?F) 36.1 ?C (97 ?F) 36.9 ?C (98.4 ?F) TempSrc: Oral Temporal Artery Tympanic Oral SpO2: 98% 98% 96% 96% Weight: Height: Temp (24hrs), Av.6 ?C (97.8 ?F), Min:36.1 ?C (97 ?F), Max:36.9 ?C (98.4 ?F) Body mass index is 35.76 kg/m?. INTAKE/OUTPUT Intake/Output Summary (Last 24 hours) at 03/22/18 1707 Last data filed at 03/22/18 1100 Gross per 24 hour Intake 360 ml Output 450 ml Net -90 ml Physical Exam: Gen: Alert and Orientated x 3, No acute distress HEENT: EOMI, PERRLA, anicteric, no pallor, no facial droop CV: S1/S2 regular rate and rhythm, no murmurs, rubs and gallops, no reproducible pain, + 2 radial pulses - equal Resp: Clear to auscultation bilaterally, no wheezes, rales, rhonchi or crackles Abd: + Bowel sounds, soft, non-tender, non-distended Ext: no pitting edema LAB DATA: CBC: Recent Labs 03/22/18 0507 WBC 6.81 HB 13.8 HCT 40.5 PLT 202 MCV 93.1 COAG: Recent Labs 03/22/18 1024 INR 1.06 BMP: Recent Labs 03/22/18 0507 GLUC 200* NA 137 K 3.8 CHLOR 104 CO2 25 ANION 12 BUN 22* CREAT 0.93 CHEM: Recent Labs 03/22/18 0507 03/21/18 2230 ALB 3.4 -- TPROT 7.1 -- CA 8.8 -- MG -- 2.3 ASSESSMENT AND PLAN: # CAD/NSTEMI -s/p cardiac cath with 3 vessels disease -will c/w Lovenox 1 mg/kg -c/w statins, BB, ARBs, ASA - appreciate CTS recs ? # Hyperlipemia -c/w statins ? # TEOFILO (obstructive sleep apnea) - c/w CPAP ? # DM (diabetes mellitus), type 2, uncontrolled -accucheck achs -c/w Amaryl, add ISS Plan of Care discussed with : Patient, nurse DVT PPx: dorindanox Dispo: home Mirta Quick Physician CHEST 2 VIEWS Observed: 03/22/2018 Status: F Source: [facility] 2:18 PM HEALTH SYSTEM REPOSITORY Performed at [facility] APPROVED BY: Dimas Foster MD EXAMINATION: CHEST RADIOGRAPH (2 VIEW FRONTAL & LATERAL) CLINICAL HISTORY: Preoperative for coronary artery bypass graft. MQ: XC2_5 Comparison: None. RESULT: Lines, tubes, and devices: None. Lungs and pleura: No infiltrates or effusions. Small granuloma projected over the heart on lateral view only. Cardiomediastinal silhouette: Normal cardiomediastinal silhouette. Other: None. IMPRESSION: No acute radiographic abnormality. 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 The similar pain was resolvable with rest before and is now a constant dull pain at the mid-sternal region. He noticed exertional chest pain about 2-3 weeks ago. Pain is precipitated and worsen with exertion. On Wednesday, he woke up in pain rated 4-7/10, pressure-like pain that wont resolved like before, so he brought himself to ED. He had initially negative troponin, his EKG at the time showed: sinus tachycardia with no acute EKG changes. He was then treated with ASA and nitro with improvement in symptoms but his troponin subsequent positive post medical therapy of ASA and Nitro, which peaked at 2.14. He underwent Heart cath and found 3 vessel disease then was loaded with Plavix and transferred to [facility] for CABG evaluation. Patient denied hx of CHF, Arrhythmia, CVA, COPD or leg edema. Last set of vitals: BP 131/75 Pulse 79 Temp 36.1 ?C (97 ?F) (Tympanic) Resp 18 Ht 172.7 cm (5' 8) Wt 106.7 kg (235 lb 3.2 oz) SpO2 96% BMI 35.76 kg/m? Wt: 110.2 kg (243 lb) BMI: 36.95 kg/(m2) Procedure: cabg Diagnosis: nstemi Date of Procedure: tbd STS Risk Score: 1.123% w/o ECHO Repeat 0.669% with echo and PFT CARE TEAM: Cardiac Surgeon: Dr. Rose Rework Operator: Dr. Rodriguez PCP: Dr. Camacho Other Providers: n/a Pre-Op Testing: LABS: No results found for: TROPT Recent Labs 03/22/18 1024 03/22/18 0507 03/21/18 2230 HBA1C 8.2* -- -- RBC -- 4.35* -- WBC -- 6.81 -- HB -- 13.8 -- HCT -- 40.5 -- PLT -- 202 -- INR 1.06 -- -- NA -- 137 -- K -- 3.8 -- CHLOR -- 104 -- CO2 -- 25 -- BUN -- 22* -- CREAT -- 0.93 -- GLUC -- 200* -- CA -- 8.8 -- MG -- -- 2.3 P -- -- 3.2 TPROT -- 7.1 -- TBILI -- 0.5 -- ALKPHOS -- 110 -- ALT -- 24 -- AST -- 8* -- ANION -- 12 -- Hemoglobin (g/dL) Date Value 03/19/2016 13.7 HGB (g/dL) Date Value 03/22/2018 13.8 Hematocrit (%) Date Value 03/22/2018 40.5 WBC (thou/cmm) Date Value 03/22/2018 6.81 Platelet Count (thou/cmm) Date Value 03/22/2018 202 Chemistry Glucose (mg/dL) Date Value 03/22/2018 200 Potassium (mEq/L) Date Value 03/22/2018 3.8 Sodium (mEq/L) Date Value 03/22/2018 137 Chloride (mEq/L) Date Value 03/22/2018 104 CO2 (mEq/L) Date Value 03/22/2018 25 Creatinine (mg/dL) Date Value 03/22/2018 0.93 BUN (mg/dL) Date Value 03/22/2018 22 Anion Gap (no units) Date Value 03/22/2018 12 Calcium (mg/dL) Date Value 03/22/2018 8.8 Protein, Total (g/dL) Date Value 03/22/2018 7.1 Albumin (g/dL) Date Value 03/22/2018 3.4 Bilirubin, Total (mg/dL) Date Value 03/22/2018 0.5 Alkaline Phosphatase (U/L) Date Value 03/22/2018 110 AST (U/L) Date Value 03/22/2018 8 ALT (U/L) Date Value 03/22/2018 24 Coag Results for CARLOS BUCKNER ( ) as of 03/22/2018 14:06 Ref. Range 03/22/2018 10:24 Prothrombin Time Latest Ref Range: 9.7 - 13.0 sec 11.0 INR Latest Ref Range: 0.90 - 1.30 1.06 UA Results for CARLOS BUCKNER ( ) as of 03/22/2018 14:06 Ref. Range 03/22/2018 11:55 Color Unknown YELLOW Specific [place], Ur Latest Ref Range: 1.005 - 1.030 1.039 (A) pH, Urine Latest Ref Range: 5.0 - 8.0 5.5 Protein, Urine Latest Ref Range: Negative mg/dL NEGATIVE Glucose, Urine Latest Ref Range: Negative mg/dL >=1000 (A) Ketones, Urine Latest Ref Range: Negative mg/dL TRACE (A) Bilirubin, Urine Latest Ref Range: Negative NEGATIVE Urobilinogen, Urine Latest Ref Range: 0.0 - 1.0 EU/dL 1.0 WBC, Urine Latest Ref Range: 0.0 - 5.0 /hpf 0.4 RBC, Urine Latest Ref Range: 0.0 - 5.0 /hpf 2.8 EP Cells Urine Latest Ref Range: 0.0 - 5.0 /hpf 0.1 Hemoglobin, Urine Latest Ref Range: Negative NEGATIVE Bacteria, Urine Latest Ref Range: None NONE Hyaline Cast Latest Ref Range: 0.0 - 1.0 /lpf 0.0 Leukocytes Esterase Latest Ref Range: Negative NEGATIVE Nitrites Urine Latest Ref Range: Negative NEGATIVE Urine Appearance Unknown CLEAR Type AND Screen: A+, Negative Ab screen RBC Cross match: 2 units ordered MRSA Screen: Negative and mupirocin prophylaxis started 03/22 HGA1C Lab Results Component Value Date HBA1C 8.2 03/22/2018 HBA1C 9.2 04/30/2017 HBA1C 9.3 01/20/2017 PFT/ABG: FEVI: 72% DLCO: ABG: Recent Labs 03/22/18 0507 CO2 25 . IMAGING/PROCEDURES Cardiac Catheterization 03/21: Left heart assessment: anterior hypokinesis. Apical hypokinesis, inferior basal hypokinesis, inferior mid hypokinesis LV gram: 55% Elevated LVEDP: 33 mmHg Mild Segmented LV systolic dysfunction ? Left main: normal LAD: mild luminal irregularities Prox LAD: Eccentric : 50% stenosis Diagonal 1: proximal-long: diffused: irregular: 85% stenosis ? Circumflex: prox Circ: mild luminal irregularities OM1: proximal-is subtotally occluded, mid-95% stenosis ? RCA: prox RCA: LONG- DIFFUSED: IRREGULAR: 85% MID RCA: is subtotally occluded Distal RCA: fills late, faintly and partially from bridging collaterals and more predominantly from left to right collateral low ? Collateral flow: collateral from L-R ? Valve findings: Normal AV function Normal MV function ? Aortic root: angiographically normal ? ? Chest X-RAY single AP view 03/19/2018: No pleural abnormality, normal mediastinum and amanda. normal visualized pulmonary arteries, normal visualized aortic arch and descending thoracic aorta. ? ECHO: EF: 55% LV: normal LV size segmental dysfunction with preserved ejection fraction. The estimated ejection fraction is 55%. Transmural Doppler flow suggested suggestive of impaired relaxation of the left ventricle. inferobasal: Hypokinetic, mid lateral: hypokinetic, mid posterior: hypokinetic, mid inferior: hypokinetic, anterior apex: Hypokinetic, inferior apex: Hypokinetic. RV: Normal size and normal function Atria: Normal left atrium, normal right atrium. No Doppler evidence for ASD MV: No mitral annular calcification. Normal mitral valve. Mild 1+ mitral valve insufficiency. TV: normal tricuspid valve. Trivial tricuspid valve insufficiency. RVSP 25 mmHg AV: Trisinus trileaflet aortic valve. Mild focal aortic valve calcification. PV: The pulmonic valve is not well visualized. Great vessels: Normal sized aortic root Pericardium: No pericardial effusion. EKG: sinus tachycardia with no acute ST-T changes. ? 5 Meter Walk Test: 5 Meter Walk Test Completed: Yes Trial 1 # of Seconds: 5.79 Trial 1 Assistive Device: None Trial 2 # of Seconds: 5.19 Trial 2 Assistive Device: None Trial 3 # of Seconds: 4.54 Trial 3 Assistive Device: None OPTIONAL TESTINGS: Carotid U/S: N/A Lower EXT HADLEY: n/a Palmar Arch: n/a Vein Mapping: n/a Dental Clearance: n/a CT Chest: n/a Medications Notes: Blood thinners: Patient is on following blood thinners: Aspirin -Yes, dose 81 mg, stopped No, date:DOS Plavix - Yes, dose 75 mg, stopped Yes, date:03/21 @7:09AM Beta Hector: Last dose of beta hector taken: DOS Perioperative Transfusion risk STS Risk Factors: Advanced age No Preoperative anemia No Non-CABG surgery No Preoperative anticoagulation Yes, Plavix stopped 03/21 @7am Clotting abnormalities No Female gender No Small body habitus No Renal insufficiency No IDDM Yes Sepsis No Liver disease No Preioperative Wound Healing - Vest recommended Yes, RF: T2DM, BMI>30 Risk Factors: Obesity Yes DM Yes Renal Dx No CLEARANCES NEEDED Pulmonary: No Hematology: No Nephrology No Vascular surgery No Other No Alex Ortega APRN.CNP URINALYSIS ROUTINE Collected: 03/22/2018 Status: F Source: [facility] 11:55 AM HEALTH SYSTEM REPOSITORY TYPE CODE TESTS RESULT OUT OF RANGE REFERENCE UNITS LAB COLOR(LOIN C) Urine Color YELLOW LAB APPUR(LOIN C) Urine Appearance CLEAR LAB GLUUR(LOIN Negative mg/dL C) Abnormal Glucose Urine >=1000 LAB KETON(LOIN Negative mg/dL C) Abnormal Ketone Urine TRACE LAB HGBUR(LOIN Negative C) Hemoglobin,Urin NEGATIVE e LAB PROTU(LOIN Negative mg/dL C) Protein Urine NEGATIVE LAB NITRI(LOIN Negative C) Nitrites Urine NEGATIVE LAB BILIU(LOIN Negative C) Bilirubin Urine NEGATIVE LAB SPG(LOINC) 1.005-1.030 Abnormal Specific 1.039 [place], Ur LAB PHUR(LOINC 5.0-8.0 ) pH,Urine 5.5 LAB UROBI(LOIN 0.0-1.0 EU/dL C) Urobilinogen,Ur 1.0 LAB LEUKO(LOIN Negative C) Leukocytes NEGATIVE Esterase LAB RBCU1(LOIN 0.0-5.0 /hpf C) RBC,Urine 2.8 LAB WBCU1(LOIN 0.0-5.0 /hpf C) WBC, Urine 0.4 LAB EPIT1(LOIN 0.0-5.0 /hpf C) Ep Cells Urine 0.1 LAB BACT1(LOIN None C) Bacteria Urine NONE LAB HYCA1(LOIN 0.0-1.0 /lpf C) Hyaline Cast 0.0 Performed By: #### URIN2 #### [facility] [address] [address] ALLIED HEALTH Observed: 03/22/2018 Status: COMPLETED Source: [place] 11:41 AM CLINIC OTHER CAMPUS REPOSITORY HNO ID: [id number] Author: Raquel (Ex Phys) Hamilton Service: Cardiac Rehab Author Type: [place] Staff Type: Allied Health Filed: 03/22/2018 11:41 AM Note Text: CARDIAC REHAB 5 METER WALK TEST SERVICE DATE: 03/22/2018 SERVICE TIME: 03/22/18 ASSESSMENT: 5 Meter Walk Test 5 Meter Walk Test Completed: Yes Trial 1 # of Seconds: 5.79 Trial 1 Assistive Device: None Trial 2 # of Seconds: 5.19 Trial 2 Assistive Device: None Trial 3 # of Seconds: 4.54 Trial 3 Assistive Device: None SIGNATURE: Raquel Villasenor MS, ACSM-CEP PATIENT NAME: Carlos Buckner DATE: March 22, 2018 TIME: 11:41 AM PAGER/CONTACT #: [phone] 12 LEAD ELECTROCARDIOGRAM Observed: 03/22/2018 Status: F Source: [place] 11:10 AM [facility] REPOSITORY [facility] Cardiovascular Services [address] [place] [address] 12 Lead EKG 03/19/18 1208 MR#: [id number] Acct: [id number] Name: CARLOS BUCKNER Rep #: [id number] : 1960 57 From: Vlad Rordiguez MD Attending Dr: Marek Whitt MD Status: DIS IN Ordering Dr: Demetrius Valencia MD Date: 03/19/18 Location: [facility] Sex: M C Admitted: 03/19/18 Test Reason : CP Blood Pressure : / mmHG Vent. Rate : 104 BPM Atrial Rate : 104 BPM P-R Int : 174 ms QRS Dur : 104 ms QT Int : 356 ms P-R-T Axes : 064 078 066 degrees QTc Int : 468 ms Sinus tachycardia Low voltage QRS (olimb leads) Confirmed by JENNIFER ISRAEL, VLAD ([id number]), scientific editor SUNITA DALY ([id number]) on 03/22/2018 11:09:42 AM Referred By: DANIELE Confirmed By:VLAD RODRIGUEZ MD 03/22/18 1109 Date Vlad Rodriguez MD CC: No Primary Care Physician; Marek Whitt MD; Demetrius Valencia MD Signed PROTIME Collected: 03/22/2018 Status: F Source: [facility] 10:24 AM HEALTH SYSTEM REPOSITORY TYPE CODE TESTS RESULT OUT OF REFERENCE UNITS RANGE LAB PTI(LOINC) 9.7-13.0 sec Prothrombin Time 11.0 LAB INR(LOINC) 0.90-1.30 INR 1.06 Result Comment: Note: Reference Range Change Vitamin K Antagonist (VKA) Therapeutic Range: INR 2 to 3 (Target INR of 2.5) Note: For patients treated with VKA drugs, such as warfarin, the [employer] 2012 Guideline recommends a therapeutic INR range of 2 to 3 (target INR of 2.5). This recommendation includes high-risk patients with antiphospholipid syndrome with previous arterial or venous thromboembolism, current-generation mechanical or bioprosthetic aortic heart valve replacement. VKA Therapeutic Range for some Mechanical Valve Replacement: INR 2.5 to 3.5 (Target INR of 3) Note: Patients with mechanical aortic valve replacement and additional risk factors for thromboembolic events (atrial fibrillation, previous thromboembolism, LV dysfunction, hypercoagulable conditions) or an older generation mechanical AVR (i.e., ball in-Cage) or any mechanical MVR should have a INR therapeutic range of 2.5 to 3.5 target INR of 3). Stefanie MARTINS, et al. Chest 2012; 141:7S-47S Brie RA, et al. JACC 2017; 70: 252-289 Performed By: #### PT #### [place] [address] HGB A1C Collected: 03/22/2018 Status: F Source: [facility] 10:24 AM HEALTH SYSTEM REPOSITORY TYPE CODE TESTS RESULT OUT OF RANGE REFERENCE UNITS LAB A1C5(LOINC) 4.2-6.3 % High Hgb A1c 8.2 Result Comment: Method is National Glycohemoglobin Standardization Program (NGSP) compliant. LAB ESAVG(LOINC) mg/dl Est. Avg Glucose 189 Performed By: #### HA1C #### [place] [address] Observed: 03/22/2018 Status: F Source: [facility] MRSA/MSSA SCREEN 10:12 AM HEALTH SYSTEM REPOSITORY Test performed at [facility] No Staph aureus or MRSA detected. 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 The similar pain was resolvable with rest before and is now a constant dull pain at the mid-sternal region. He noticed exertional chest pain about 2-3 weeks ago. Pain is precipitated and worsen with exertion. On Wednesday, he woke up in pain rated 4-7/10, pressure-like pain that wont resolved like before, so he brought himself to ED. He had initially negative troponin, his EKG at the time showed: sinus tachycardia with no acute EKG changes. He was then treated with ASA and nitro with improvement in symptoms but his troponin subsequent positive post medical therapy of ASA and Nitro, which peaked at 2.14. He underwent Heart cath and found 3 vessel disease then was loaded with Plavix and transferred to [facility] for CABG evaluation. Patient denied hx of CHF, Arrhythmia, CVA, COPD or leg edema. FH: negative of cardiac disease SH: Never smoker Patient is Able to Perform the Following Physical Activity: Do moderate work around the house such as vacuuming, sweeping floors, or carrying in groceries (3.50 METs) Patient has the following medical comorbidities which might affect the perioperative course: - CAD of the [place] vessel. No interventions.. - Type II Diabetes with no complications. Patient is on oral medications. - Hypertension, well controlled. - Patient with sleep apnea and uses CPAP. PAST MEDICAL HISTORY Diagnosis Date - HLD (hyperlipidemia) - HTN (hypertension) 06/10/2017 - Obstructive sleep apnea - Type II or unspecified type diabetes mellitus without mention of complication, not stated as uncontrolled PAST SURGICAL HISTORY Procedure Laterality Date - COLONOSCOP W/ OR W/O [facility] SPEC 01/17/15 Colonoscopy - KIDNEY SURGERY HX - LITHOTRIPSY PROC UNILATERAL 2006 left side done in [place] - PAST SURGICAL HISTORY OF dog bite age 5 - PAST SURGICAL HISTORY OF chainsaw injury FAMILY HISTORY Problem Relation Age of Onset - other (polio) Mother - Emphysema Father - Diabetes Maternal Grandfather - COPD Paternal Grandmother - COPD Paternal Grandfather Social History Substance Use Topics - Smoking status: Never Smoker - Smokeless tobacco: Never Used - Alcohol use No Prescriptions Prior to Admission: atorvastatin (LIPITOR) 80 mg tablet TAKE ONE TABLET BY MOUTH ONCE DAILY Disp: 30 tablet Rfl: 0 empagliflozin (JARDIANCE) 25 mg tablet Take 1 tablet by mouth once daily. Disp: 90 tablet Rfl: 3 glimepiride (AMARYL) 4 mg tablet Take 1 tablet by mouth twice daily with meals. Disp: 180 tablet Rfl: 3 lisinopril 2.5 mg tablet Take 1 tablet by mouth once daily. Disp: 30 tablet Rfl: 5 metFORMIN (GLUCOPHAGE) 1,000 mg tablet Take 1 tablet by mouth twice daily with meals. Disp: 180 tablet Rfl: 3 blood sugar diagnostic (BLOOD GLUCOSE TEST) test strip Test blood sugar(s) 2x daily. Dx: E11.65. Insulin: No Disp: 100 Strip Rfl: 11 Ibuprofen 200 mg cap Take 200 mg by mouth once daily. Disp: Rfl: Blood-Glucose Meter monitoring kit Glucose Meter of Choice - Kit - Dx: Type 2 DM - Uncontrolled E11.65 (per insurance) Disp: 1 Each Rfl: 0 Lancets lancets Test blood sugar(s) 2x daily. Dx: E11.65. Insulin: No Disp: 100 Each Rfl: 11 COMPOUNDED PRESCRIPTION CPAP @ 8 cm of water with humidification. Mask (per patient preference) optional chin strap (if indicated) , filters, tubing, humidifier and lifetime supplies. Dx. TEOFILO 327.23 Disp: 1 Device Rfl: 0 01/16/2015 at am atorvastatin (LIPITOR) 80 mg tablet TAKE ONE TABLET BY MOUTH ONCE DAILY empagliflozin (JARDIANCE) 25 mg tablet Take 1 tablet by mouth once daily. glimepiride (AMARYL) 4 mg tablet Take 1 tablet by mouth twice daily with meals. lisinopril 2.5 mg tablet Take 1 tablet by mouth once daily. metFORMIN (GLUCOPHAGE) 1,000 mg tablet Take 1 tablet by mouth twice daily with meals. blood sugar diagnostic (BLOOD GLUCOSE TEST) test strip Test blood sugar(s) 2x daily. Dx: E11.65. Insulin: No Ibuprofen 200 mg cap Take 200 mg by mouth once daily. Blood-Glucose Meter monitoring kit Glucose Meter of Choice - Kit - Dx: Type 2 DM - Uncontrolled E11.65 (per insurance) Lancets lancets Test blood sugar(s) 2x daily. Dx: E11.65. Insulin: No COMPOUNDED PRESCRIPTION CPAP @ 8 cm of water with humidification. Mask (per patient preference) optional chin strap (if indicated) , filters, tubing, humidifier and lifetime supplies. Dx. TEOFILO 327.23 ALLERGIES Allergen Reactions - Oysters Rash, Itching REVIEW OF SYSTEMS: PAIN ASSESSMENT: Negative for pain, history of chronic pain, or current treatment for a chronic pain condition. GENERAL: No weight loss, malaise or fevers NECK: Negative for lumps, goiter, pain and significant neck swelling RESPIRATORY: Negative for cough, wheezing or shortness of breath. CARDIOVASCULAR: See HPI GI: Negative for abdominal discomfort, blood in stools or black stools or change in bowel habits : No history of dysuria, frequency or incontinence MUSCULOSKELETAL: Negative for joint pain or swelling, back pain or muscle pain. SKIN: Negative for lesions, rash, and itching. PSYCH: Negative for sleep disturbance, mood disorder and recent psychosocial stressors. HEMATOLOGY/LYMPHOLOGY Negative for prolonged bleeding, bruising easily or swollen nodes. ENDOCRINE: Negative for cold or heat intolerance, polyuria, polydipsia and goiter. NEURO: No history of headaches, syncope, paralysis, seizures or tremors See HPI Objective PHYSICAL EXAM: BP 126/69 Pulse 87 Temp 36.4 ?C (97.5 ?F) (Temporal Artery) Resp 16 Ht 172.7 cm (5' 8) Wt 106.7 kg (235 lb 3.2 oz) SpO2 98% BMI 35.76 kg/m? Body surface area is 2.26 meters squared. STS RISK CALCULATOR: 1.123% without Echo report. General Appearance: well developed and no distress Skin: warm and dry Lungs: clear and respiratory effort: normal Heart: regular rhythm, S1, S2 normal and no murmur Peripheral Vascular/Arteries: pulses intact, dorsalis pedis +2 and radial +2 Abdomen: soft, non-tender and bowel sounds present Genitourinary: voiding without difficulty Musculoskeletal: no deformities Neurologic/Psychiatric: oriented to time, place and person and steady gait Extremities: normal exam of the extremities and no edema Lines, Drains, and Airways Line Peripheral Assessment Short Left Forearm 20 Gauge -- days @LDAASSESS(2::::8:)@ DATA: Diagnostic tests reviewed for today's visit: Labs: troponin: 0.29-0.841-1.18-2.14-1.9 PT/INR (03/21): 14.3/1.1 Cardiac Catheterization 03/21: Left heart assessment: anterior hypokinesis. Apical hypokinesis, inferior basal hypokinesis, inferior mid hypokinesis LV gram: 55% Elevated LVEDP: 33 mmHg Mild Segmented LV systolic dysfunction Left main: normal LAD: mild luminal irregularities Prox LAD: Eccentric : 50% stenosis Diagonal 1: proximal-long: diffused: irregular: 85% stenosis Circumflex: prox Circ: mild luminal irregularities OM1: proximal-is subtotally occluded, mid-95% stenosis RCA: prox RCA: LONG- DIFFUSED: IRREGULAR: 85% MID RCA: is subtotally occluded Distal RCA: fills late, faintly and partially from bridging collaterals and more predominantly from left to right collateral low Collateral flow: collateral from L-R Valve findings: Normal AV function Normal MV function Aortic root: angiographically normal Chest X-RAY single AP view 03/19/2018: No pleural abnormality, normal mediastinum and amanda. normal visualized pulmonary arteries, normal visualized aortic arch and descending thoracic aorta. ECHO: pending results from [place] EKG: sinus tachycardia with no acute ST-T changes. Recent Labs 03/22/18 0507 03/21/18 2230 RBC 4.35* -- WBC 6.81 -- HB 13.8 -- HCT 40.5 -- PLT 202 -- NA 137 -- K 3.8 -- CHLOR 104 -- CO2 25 -- BUN 22* -- CREAT 0.93 -- GLUC 200* -- CA 8.8 -- MG -- 2.3 P -- 3.2 TPROT 7.1 -- TBILI 0.5 -- ALKPHOS 110 -- ALT 24 -- AST 8* -- ANION 12 -- Assessment/Plan Active Problems: Hyperlipemia POA: Yes -c/w Lipitor 80 TEOFILO (obstructive sleep apnea) POA: Yes - c/w home Cpap DM (diabetes mellitus), type 2, uncontrolled (HCC) POA: Yes -A1C ordered -will consider endo consult for post-op management -c/w current meds:Amaryl, insulin Chest pain POA: Yes -currently chest pain free -work up in progress - HC from [facility] is uploaded -[place] ECHO requested -will discuss case with Dr. Rose -c/w ASA, Statin, BB 25 BID - will need Plavix washout for 5 days. last dose Plavix on 03/21 @7:09am, ESSENTIAL HTN -C/W COzaar -currently VSS Tests/Labs Ordered: 1. HbA1c (average sugar test) 2. PT/INR 3. UA 4. MRSA 5. CXR 2 view 6. Bedside spirometer 7. Carotid US? 8. 5 meter walk test These findings will be communicated back to the requesting provider electronically. SIGNATURE: Alex Ortega APRN.CNP PATIENT NAME: Carlos Buckner DATE: March 22, 2018 TIME: 9:25 AM PAGER/CONTACT #:[phone] ETX [id number] Patient seen, cath films reviewed, w/u eval to date reviewed. Inc'd risks due to poorly controlled DM, pft's, body build etc. CONSULT Observed: 03/22/2018 Status: COMPLETED Source: [facility] 9:23 AM CLINIC OTHER CAMPUS REPOSITORY O ID: [id number] Author: Bentley Hendrix Service: Cardiovascular Medicine Author Type: Physician Type: Consults Filed: 03/22/2018 9:31 AM Note Text: CONSULT: CARDIOLOGY SERVICE SERVICE DATE: 03/22/2018 CONSULTING PHYSICIAN: Bentley Hendrix MD PCP: Rick Camacho MD ATTENDING: Mirta Ruiz REASON FOR CONSULT: NSTEMI, 3V CAD Subjective CHIEF COMPLAINT: cad HISTORY OF PRESENT ILLNESS: Mr. 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 Patient transferred to [facility] for evaluation for CABG. Patient reports that for the last 2 weeks, he has had exertional symptoms of substernal chest pressure with mild shortness of breath that would improve with resting. He thought his symptoms were due to being out of shape. However, he woke up on the morning of 03/19 with severe substernal chest pressure with radiation to his shoulders. As his symptoms were not improving, he went to [facility] for further evaluation. In the ER, he was given sl ntg with resolution of his symptoms. He was found to have elevated troponins peaking at 2.14. He underwent cardiac catheterization revealing 3V CAD. He was transferred to [facility] for evaluation for CABG. In discussion with the patient, he denies any further episodes of chest pain/pressure since admission to the hospital. He otherwise denies any significant symptoms of orthopnea, paroxysmal nocturnal dyspnea, lower extremity edema, claudication, presyncope, syncope, or palpitations. His cardiac risk factors include hypertension, hyperlipidemia, and diabetes. PAST MEDICAL HISTORY Diagnosis Date - HLD (hyperlipidemia) - HTN (hypertension) 06/10/2017 - Obstructive sleep apnea - Type II or unspecified type diabetes mellitus without mention of complication, not stated as uncontrolled PAST SURGICAL HISTORY Procedure Laterality Date - COLONOSCOP W/ OR W/O [facility] SPEC 01/17/15 Colonoscopy - KIDNEY SURGERY HX - LITHOTRIPSY PROC UNILATERAL 2006 left side done in [place] - PAST SURGICAL HISTORY OF dog bite age 5 - PAST SURGICAL HISTORY OF chainsaw injury FAMILY HISTORY Problem Relation Age of Onset - other (polio) Mother - Emphysema Father - Diabetes Maternal Grandfather - COPD Paternal Grandmother - COPD Paternal Grandfather Social History Substance Use Topics - Smoking status: Never Smoker - Smokeless tobacco: Never Used - Alcohol use No Prior to Admission Medications Prescriptions Last Dose Informant Patient Reported? Taking? Blood-Glucose Meter monitoring kit No No Sig: Glucose Meter of Choice - Kit - Dx: Type 2 DM - Uncontrolled E11.65 (per insurance) COMPOUNDED PRESCRIPTION No No Sig: CPAP @ 8 cm of water with humidification. Mask (per patient preference) optional chin strap (if indicated) , filters, tubing, humidifier and lifetime supplies. Dx. TEOFILO 327.23 Ibuprofen 200 mg cap Yes No Sig: Take 200 mg by mouth once daily. Lancets lancets No No Sig: Test blood sugar(s) 2x daily. Dx: E11.65. Insulin: No atorvastatin (LIPITOR) 80 mg tablet No Yes Sig: TAKE ONE TABLET BY MOUTH ONCE DAILY blood sugar diagnostic (BLOOD GLUCOSE TEST) test strip No No Sig: Test blood sugar(s) 2x daily. Dx: E11.65. Insulin: No empagliflozin (JARDIANCE) 25 mg tablet No Yes Sig: Take 1 tablet by mouth once daily. glimepiride (AMARYL) 4 mg tablet No Yes Sig: Take 1 tablet by mouth twice daily with meals. lisinopril 2.5 mg tablet No Yes Sig: Take 1 tablet by mouth once daily. metFORMIN (GLUCOPHAGE) 1,000 mg tablet No Yes Sig: Take 1 tablet by mouth twice daily with meals. Facility-Administered Medications: None Current hospital medications: 0.9% NaCl 3-5 mL 3-5 mL INTRAVENOUS q 12 H glimepiride 4 mg tab(s) (AMARYL) 4 mg ORAL BID w MEALS atorvastatin 80 mg tab(s) (LIPITOR) 80 mg ORAL AT BEDTIME dextrose 40 % 15 g 15 g ORAL PRN glucagon 1 mg injection (GLUCAGEN) 1 mg INTRAMUSCULAR PRN dextrose 50% in water 25 mL syringe 12.5 g INTRAVENOUS PRN enoxaparin 105 mg injection (LOVENOX) 1 mg/kg/dose SUBCUTANEOUS q 12 HR nitroglycerin sublingual 0.4 mg tab(s) (NITROQUICK) 0.4 mg SUBLINGUAL PRN metoprolol tartrate (short acting) 25 mg tab(s) (LOPRESSOR) 25 mg ORAL q 12 H losartan 25 mg tab(s) (COZAAR) 25 mg ORAL DAILY aspirin 81 mg chewable tab(s) 81 mg ORAL DAILY insulin lispro pen (rapid acting) (HumaLOG KWIKPEN) SUBCUTANEOUS w MEALS AND HS ALLERGIES Allergen Reactions - Oysters Rash, Itching Review of Systems: 03/13 systems reviewed and negative except as per above Physical Examination: 03/21/186 03/22/18 0014 03/22/18 0504 03/22/18 0800 BP: 142/84 118/73 126/69 Pulse: 93 80 87 Resp: 18 16 Temp: 36.6 ?C (97.9 ?F) 36.4 ?C (97.5 ?F) TempSrc: Oral Temporal Artery SpO2: 98% 98% Weight: 106.7 kg (235 lb 3.2 oz) Height: Patient Vitals for the past 12 hrs: BP Temp Temp src Pulse Resp SpO2 Weight 03/22/18 0800 126/69 36.4 ?C (97.5 ?F) Temporal Art 87 16 98 % - 03/22/18 0504 118/73 36.6 ?C (97.9 ?F) Oral 80 18 98 % - 03/22/18 0014 142/84 - - 93 - - - 03/21/18 2126 - - - - - - 106.7 kg (235 lb 3.2 oz) General appearance: Obese, alert, appears to be in no acute distress, cooperative Head: Normocephalic, atraumatic HEENT: Extraocular movements intact; mucous membranes moist; no JVD Lungs: CTAB; no rales, rhonchi, or wheezes Heart: RRR; normal S1/S2; no murmurs/gallops/rubs Abdomen: Abdomen soft, obese, mildly distended, non-tender. NABS Extremities: No lower extremity edema bilaterally; extremities warm to touch Skin: No rashes noted Neurologic: Nonfocal Psych: Normal mood/affect DATA: Past 72 Hour Labs: Recent Labs 03/22/18 0507 03/21/18 2230 NA 137 -- K 3.8 -- CA 8.8 -- MG -- 2.3 BUN 22* -- CREAT 0.93 -- GLUC 200* -- WBC 6.81 -- HB 13.8 -- PLT 202 -- TROPI -- 0.517* ALB 3.4 -- ALKPHOS 110 -- TBILI 0.5 -- AST 8* -- ALT 24 -- Trop 0.29 -> 0.841 -> 1.18 -> 2.14 -> 1.9 -> 0.517 Last Lab Drawn: Triglyceride 304 06/10/2017 HDL Cholesterol 27 06/10/2017 LDL Chol, [place] 31 06/10/2017 Cholesterol, Total 119 06/10/2017 CARDIAC WORKUP: EKG: EKG, 03/21/18: Normal sinus rhythm; nonspecific T wave abnormality; low voltage QRS in limb leads Coronary angiography: Left Heart Catheterization, 03/21/18: EF 55% with hypokinetic anterior, apical, and inferior mulligan. LVEDP 33. 75% mid LAD, 85% pD1, 95% mOM1, 100% pOM1, 85% pRCA, 100% mRDA with collaterals to dRCA from L to R I personally reviewed patient's labs, EKG, and report of recent cardiac catheterization. I personally spent 20 minutes reviewing records from [facility]. AANDP: Mr. 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 Patient transferred to [facility] for evaluation for CABG. 1. NSTEMI w/ 3V CAD: - Will request records of recent TTE at [facility] - Continue optimal medical therapy with ASA, lipitor, metoprolol, losartan, and therapeutic lovenox - Recommend use of sl ntg if patient with recurrent episodes of chest pain - Agree with CT surgery c/s for evaluation for CABG 2. Hypertension: Patient's blood pressure is well controlled on his current antihypertensive regimen. 3. Hyperlipidemia: Continue high intensity statin therapy with lipitor 80 mg qhs 4. Obstructive sleep apnea: Continue CPAP therapy We will continue to follow with you. Please call if further ?s. SIGNATURE: Bentley Hendrix MD PATIENT NAME: Carlos Buckner DATE: March 22, 2018 TIME: 9:23 AM PAGER/CONTACT #: [phone] HEMOGRAM Collected: 03/22/2018 Status: F Source: [facility] 5:07 AM HEALTH SYSTEM REPOSITORY TYPE CODE TESTS RESULT OUT OF REFERENCE UNITS RANGE LAB WBC(LOINC) 4.23-9.07 thou/cmm WBC 6.81 LAB RBC(LOINC) 4.63-6.08 mil/cmm Low RBC 4.35 LAB HGB(LOINC) 13.7-17.5 g/dL Hgb 13.8 LAB HCT(LOINC) 40.1-51.0 % Hct 40.5 LAB MCV(LOINC) 83.2-95.6 fl MCV 93.1 LAB MCH(LOINC) 25.7-32.2 pg MCH 31.7 LAB MCHC(LOINC) 32.3-36.5 % MCHC 34.1 LAB RDW(LOINC) 11.6-14.4 % RDW 12.2 LAB RDWSD(LOINC 36.1-45.8 fl ) RDW SD 42.2 LAB PLT(LOINC) 141-365 thou/cmm Platelet 202 LAB MPV(LOINC) 8.7-12.0 fl MPV 10.2 Performed By: #### CBC1 #### [facility] [address] [place] [id number] COMPREHENSIVE PANEL Collected: 03/22/2018 Status: F Source: [facility] 5:07 AM HEALTH SYSTEM REPOSITORY TYPE CODE TESTS RESULT OUT OF REFERENCE UNITS RANGE LAB NA(LOINC) 136-145 mEq/L Sodium Blood 137 LAB K(LOINC) 3.5-5.1 mEq/L Potassium Blood 3.8 LAB CL(LOINC) 98-107 mEq/L Chloride Blood 104 LAB CO2(LOINC) 21-32 mEq/L CO2 Blood 25 LAB GLU(LOINC) 70-99 mg/dL Glucose High Blood 200 LAB BUN(LOINC) 7-18 mg/dL BUN Blood High 22 LAB CREA(LOINC 0.67-1.17 mg/dL ) Creatinine Blood 0.93 LAB CA(LOINC) 8.5-10.1 mg/dL Calcium Blood 8.8 LAB ALB(LOINC) 3.4-5.0 g/dL Albumin Blood 3.4 LAB TP(LOINC) 6.4-8.2 g/dL Total Protein 7.1 LAB AST(LOINC) 9-37 U/L Low AST-SGOT Blood 8 LAB ALT(LOINC) 12-78 U/L ALT-SGPT Blood 24 LAB ALKP(LOINC 46-116 U/L ) Alk Phosphatase 110 LAB BILIT(LOIN 0.2-1.0 mg/dL C) Total Bilirubin 0.5 LAB ANGAP(LOIN 8-16 C) Anion Gap 12 Performed By: #### P14 #### [place] [address] HISTORY PHYSICAL Observed: 03/21/2018 Status: COMPLETED Source: [facility] 10:43 PM CLINIC OTHER CAMPUS REPOSITORY O ID: [id number] Author: Veronica Najera Service: Hospital Medicine Author Type: Physician Type: HANDP Filed: 03/21/2018 11:04 PM Note Text: DEPARTMENT OF HOSPITAL MEDICINE HISTORY AND PHYSICAL EXAM SERVICE DATE: 03/21/2018 SERVICE TIME: 10:43 PM Primary Care Physician: Rick Camacho MD NIGHT AND WEEKEND COVERAGE: After 7pm, please call cross cover pager #[phone] Subjective CHIEF COMPLAINT: CAD HPI: This is a 57 year old male who presented to [place] two days ago with chest pain, found to have NSTEMI. Today he had cardiac cath done with findings of three vessels disease and was transferred to [facility] for CTS evaluation for CABG. At present time he is asymptomatic. PAST MEDICAL HISTORY Diagnosis Date - HLD (hyperlipidemia) - HTN (hypertension) 06/10/2017 - Obstructive sleep apnea - Type II or unspecified type diabetes mellitus without mention of complication, not stated as uncontrolled PAST SURGICAL HISTORY Procedure Laterality Date - COLONOSCOP W/ OR W/O [facility] SPEC 01/17/15 Colonoscopy - KIDNEY SURGERY HX - LITHOTRIPSY PROC UNILATERAL 2006 left side done in [place] - PAST SURGICAL HISTORY OF dog bite age 5 - PAST SURGICAL HISTORY OF chainsaw injury FAMILY HISTORY Problem Relation Age of Onset - other (polio) Mother - Emphysema Father - Diabetes Maternal Grandfather - COPD Paternal Grandmother - COPD Paternal Grandfather Social History Substance Use Topics - Smoking status: Never Smoker - Smokeless tobacco: Never Used - Alcohol use No MEDICATIONS: Reviewed ALLERGIES Allergen Reactions - Oysters Rash, Itching REVIEW OF SYSTEM: GENERAL: No weight loss, malaise or fevers HEENT: Negative for frequent or significant headaches, No changes in hearing or vision, no nose bleeds or other nasal problems NECK: Negative for lumps, goiter, pain and significant neck swelling RESPIRATORY: +shortness of breath CARDIOVASCULAR:+chest pain GI: No nausea, vomiting, or diarrhea : No history of dysuria, frequency or incontinence MUSCULOSKELETAL: Negative for joint pain or swelling, back pain or muscle pain SKIN: Negative for lesions, rash, and itching PSYCH: Negative for sleep disturbance, mood disorder and recent psychosocial stressors HEMATOLOGY/LYMPHOLOGY: Negative for prolonged bleeding, bruising easily or swollen nodes ENDOCRINE: Negative for cold or heat intolerance, polyuria, polydipsia and goiter NEURO: No history of headaches, syncope, paralysis, seizures or tremors Objective PHYSICAL EXAM: BP 131/79 Pulse 97 Temp (Src) 98.2 (Oral) Resp 18 Ht 5' 8 (1.73m) Wt 235 lb 3.2 oz (106.7kg) SpO2 97% BMI 35.77 kg/(m2). GENERAL: Alert, no distress, cooperative SKIN: Skin color, texture, turgor normal. No rashes or lesions. HEENT: normocephalic, atraumatic, EOMI, RUBINA, sclerae anicteric NECK: No jugulovenous distention. Supple, no thyromegaly or lymphadenopathy. Trachea midline. LUNGS: Lungs clear to auscultation b/l, no wheezes, rhonchi or crackles. Good respiratory effort. CARDIAC: Normal S1 and S2; no rubs, murmurs, or gallops ABDOMEN: Abdomen soft, non-tender, BS normal, No masses or organomegaly EXTREMITIES: Extremities normal, no deformities, edema, clubbing or skin discoloration. Good capillary refill., No ulcers DATA: Diagnostic tests reviewed for today's visit: Most recent labs and imaging results. Assessment/Plan Active Problems: CAD/NSTEMI POA -s/p cardiac cath with 3 vessels disease -will c/w Lovenox 1 mg/kg -repeat troponin -consult cardiology and CTS -c/w statins, BB, ARBs, ASA Hyperlipemia POA: Yes Assessment AND Plan: -c/w statins TEOFILO (obstructive sleep apnea) POA: Yes Assessment AND Plan: -c/w CPAP DM (diabetes mellitus), type 2, uncontrolled (HCC) POA: Yes Assessment AND Plan: -accucheck achs -c/w Amaryl, add ISS VTE Prophylaxis: Patient is already anti-coagulated. Disposition: Home Plan of care discussed with: Patient SIGNATURE: Veronica Najera MD PATIENT NAME: Carlos Buckner DATE: March 21, 2018 TIME: 10:43 PM PAGER/CONTACT #: [email or web address] BLOOD Collected: 03/21/2018 Status: F Source: [facility] 10:30 PM HEALTH SYSTEM REPOSITORY TYPE CODE TESTS RESULT OUT OF REFERENCE UNITS RANGE LAB MAG(LOINC) 1.6-2.6 mg/dL Magnesium Blood 2.3 Performed By: #### MAG #### [place] [address] PHOSPHORUS BLOOD Collected: 03/21/2018 Status: F Source: [facility] 10:30 PM HEALTH SYSTEM REPOSITORY TYPE CODE TESTS RESULT OUT OF REFERENCE UNITS RANGE LAB PHOS(LOINC 2.5-4.9 mg/dL ) Phosphorus Blood 3.2 Performed By: #### PHOS #### [place] [address] TROPONIN I Collected: 03/21/2018 Status: F Source: [facility] 10:30 PM HEALTH SYSTEM REPOSITORY TYPE CODE TESTS RESULT OUT OF REFERENCE UNITS RANGE LAB TROP(LOINC) 0.015-0.045 ng/ml High Troponin I 0.517 Performed By: #### TROP #### [facility] [address] [place], [place] [address] NURSING PROG Observed: 03/21/2018 Status: COMPLETED Source: [place] 9:22 PM CLINIC OTHER CAMPUS REPOSITORY HNO ID: [id number] Author: Jackelin (Rn) KENYETTA Juárez Service: (none) Author Type: Registered Nurse Type: Nursing Progress Note Filed: 03/21/2018 9:23 PM Note Text: Sound Admit pager #[phone] text paged to notify of pt's arrival. VSS, pt has no new complaints, pt resting comfortably in room. Will continue to monitor. BEDSIDE GLUCOSE Collected: 03/21/2018 Status: F Source: [place] 5:18 PM [facility] REPOSITORY TYPE CODE TESTS RESULT OUT OF REFERENCE UNITS RANGE LAB L501.080 70-110 mg/dL High BEDSIDE GLU 196 Result Comment: MANAGEMENT OF PATIENT CARE PER NURSING PROTOCOL Performed By: #### L501.080 #### [facility] Point of Care [address] [facility] [place] [address] ECHO, COMPLETE W/ Observed: 03/21/2018 Status: F Source: [place] CONTRAST 5:16 PM [facility] REPOSITORY [facility] Cardiovascular Services [address] [place] [address] Echo Complete W/ Contrast 03/21/18 1435 MR#: [id number] Acct: [id number] Name: CARLOS BUCKNER Rep #: [id number] : 1960 57 From: Vlad Rodriguez MD Attending Dr: Marek Whitt MD Status: ADM IN Ordering Dr: Vlad Rodriguez MD Date: 03/19/18 Location: PCU Sex: M C Admitted: 03/19/18 Version 2 Reason For Study: Chest Pain Procedure This was a 2D Doppler, Color Flow transthoracic echocardiogram. The study was technically difficult. Contrast injection was performed. Exam performed portable in patient room. Left Ventricle Normal LV size. Segmental dysfunction with preserved ejection fraction (see wall motion). The estimated ejection fraction is 55 %. Transmitral doppler flow suggestive of impaired relaxation of left ventricle. Infero-Basal: Hypokinetic. Mid-Lateral : Hypokinetic. Mid-Posterior: Hypokinetic. Mid-Inferior: Hypokinetic. Anterior [place] : Hypokinetic. Inferior [place] : Hypokinetic. Right Ventricle Normal RV size. Normal systolic function. Atria Normal left atrium. Normal right atrium. No doppler evidence for ASD. Mitral Valve There is no mitral annular calcification. Normal mitral valve. Mild (1+) mitral valve insufficiency. Tricuspid Valve Normal tricuspid valve. Trivial tricuspid valve insufficiency. Right ventricular systolic pressure estimated to be 25 mmHg. Aortic Valve Trisinus/trileaflet aortic valve. Mild focal aortic valve calcification. Pulmonic Valve The pulmonic valve is not well visualized. Great Vessels Normal sized aortic root. Pericardium/Pleural No pericardial effusion. Medication Definity0.3ml given slow IV push to enhance endocardial definition. MMode/2D Measurements AND Calculations LVIDd: 4.9 cm IVSd: 1.4 cm Ao root diam: 3.4 cm LVIDs: 3.8 cm LVPWd: 1.1 cm RVDd: 3.2 cm FS: 22.5 % LAV(MOD-bp): 54.7 ml LVAd ap4: 37.0 cm2 SV(MOD-sp4): 54.4 ml LAV(MOD-bp) Indexed: 24.4 ml/m2 EDV(MOD-sp4): 138.8 ml LAV(MOD-sp2): 61.8 ml EDV(sp4-el): 149.2 ml LAV(MOD-sp4): 42.2 ml LVAs ap4: 26.4 cm2 ESV(MOD-sp4): 84.4 ml ESV(sp4-el): 86.9 ml EF(MOD-sp4): 39.2 % EF(sp4-el): 41.8 % SV(sp4-el): 62.3 ml LA A4 area: 14.6 cm2 RA A4 area: 11.2 cm2 Doppler Measurements AND Calculations MV E max milo: 66.9 cm/sec Lat Peak E' Milo: 7.5 cm/sec Med Peak E' Milo: 6.0 cm/sec MV A max milo: 88.0 cm/sec E/E' lat: 8.9 E/E' med: 11.1 MV E/A: 0.76 Ao V2 max: 88.9 cm/sec LV V1 max: 79.6 cm/sec PA V2 max: 67.3 cm/sec Ao max P.2 mmHg LV V1 max P.5 mmHg Ao V2 mean: 66.0 cm/sec Ao mean P.9 mmHg Ao V2 VTI: 19.4 cm TR max milo: 233.7 cm/sec TR max P.9 mmHg Interpretation Summary The study was technically difficult. Contrast injection was performed. Segmental dysfunction with preserved ejection fraction (see wall motion). The estimated ejection fraction is 55 %. Mild (1+) mitral valve insufficiency. Trivial tricuspid valve insufficiency. Mild focal aortic valve calcification. Right ventricular systolic pressure estimated to be 25 mmHg. Transmitral doppler flow suggestive of impaired relaxation of left ventricle Ordering Physician: Vlad Rodriguez Performed By: Akiko Ruiz, PHUONG, RVT 03/21/18 1716 Date Vlad Rodriguez MD CC: No Primary Care Physician; Marek Whitt MD; Vlad Rodriguez MD Date Dictated: 03/21/18 1435 Date Transcribed: 03/21/18 1659 Jewelry Maker: Signed DISCHARGE SUMMARY Observed: 03/21/2018 Status: F Source: [place] 12:08 PM [facility] REPOSITORY [facility] Medical Records Department [address] [place] [id number] Discharge Summary 03/21/18 1153 MR#: [id number] Acct: [id number] Name: CARLOS BUCKNER Rep #: [id number] : 1960 57 From: Marek Whitt MD PCP: Care Physician, No Primary Status: ADM IN Location: [place] [address] Discharge Date and Diagnosis - Problem List Patient Problems: Active and Suspected Problems NSTEMI (non-ST elevated myocardial infarction) (Acute) Date of Admission: 03/19/18 Date of Discharge: 03/21/18 - Primary Discharge Diagnosis Active and Suspected Problems NSTEMI (non-ST elevated myocardial infarction) (Acute) - Secondary Discharge Diagnosis Chronic Problems HTN (hypertension) (Chronic) Diabetes mellitus (Chronic) Hospital Course and Treatment Imaging Results: None Consults: Cardiology Operations: None Procedures: Cardiac catheterization - Found to have multivessel CAD Summary of Care Provided: HPI: The patient is a 57 year old M with a PMH as above presenting with chest pain that would not resolve. He has been having intermittent chest pain with exertion only for the last few weeks that was very stable until today when it would not resolve when it usually would with rest. Maybe some radiation to his shoulder but otherwise no significant radiation, no diaphoresis. In the ER he was found to have a normal EKG but an elevated troponin to 0.29. Cardiology was consulted for the NSTEMI and recommended a cardiac cath, on wednesday, possibly sooner. Vital Signs - 24 hr 03/21/18 10:45 80 20 H 135/92 H 99 03/21/18 10:43 86 03/21/18 10:15 81 15 135/87 H 99 General: Alert, Oriented x3, Cooperative, No apparent distress HEENT: Atraumatic, EOMI, Normocephalic Neck: Supple, No JVD Lungs: Clear to auscultation, Normal air movement, No rhonchi, No wheeze, No rales Cardiovascular: Regular rate, Regular Rhythm, Normal S1, Normal S2, No murmurs Abdomen: Soft, Non Tender, Non-Distended, No Hepato-splenomegaly Extremities: No edema, Capillary Refill Less than 3 Seconds Skin: No rashes, No breakdown, dressing in groin intact Hospital Course: 1. NSTEMI/HTN - He presented with exertional chest pain that transitioned to occurring at rest as well which is why he came in. He is a non-smoker. On admission he had no EKG changes however his troponin continued to climb up and peaked at 2.14. He was intiated on medical management with aspirin, loading dose of plavix, therapeutic lovenox BID, statin, BB and ARB. He underwent a cardiac cath on 03/21 that showed multivessel CAD not amenable to stenting and therefore he was transferred to a tertiary care center for cardiac surgery. He was transferred back to the PCU on a nitroglycerin drip which he will be transferred on. During his stay his chest pain had resolved with all of the medical interventions. 2. DM2 - His oral hypoglycemics were discontinued on admission and he was placed on a SSI. He can be restarted on his home medications when discharged Patient Problems: Active and Suspected Problems NSTEMI (non-ST elevated myocardial infarction) (Acute) - Physical Exam Vital Signs Temp Pulse Resp BP Pulse Ox 98.1 F 80 20 H 135/92 H 99 03/21/18 07:06 03/21/18 10:45 03/21/18 10:45 03/21/18 10:45 03/21/18 10:45 Oxygen Flow Rate (L/min) 2 Oxygen Delivery Method Nasal Cannula Weight: 235 lb 7.259 oz Body Mass Index (BMI) 33.7 Intake and Output for Last 24 Hours Intake Total 300 / 300 1760 / 1760 Balance 300 / 300 1760 / 1760 Laboratory Tests Past 24 Hrs WBC RBC Hgb Hct MCV MCH MCHC RDW RDW Differential POC Glucose POC Glucose 190 H 232 H 149 H POC Glucose 193 H 233 H Home Medications: Medications to take at Discharge Empagliflozin [Jardiance] 25 mg PO DAILY 03/19/18 Glimepiride [Amaryl] 4 mg PO BID 03/19/18 Metformin HCl 1,000 mg PO BID 03/19/18 Aspirin E.C. [Ecotrin] 81 mg PO DAILY@0800 tablet 03/21/18 Atorvastatin Calcium [Lipitor] 40 mg PO QHS tablet 03/21/18 Losartan Potassium [Cozaar] 25 mg PO DAILY tablet 03/21/18 Metoprolol Tartrate [Lopressor (beta hector)] 25 mg PO BID tablet 03/21/18 Nitroglycerin Infusion 25 mg IV .[id number] bottle 03/21/18 Primary Care Physician: Care Physician,No Primary [Primary Care Provider] - Disposition: Acute [facility] Minutes spent on discharge:: 35 Patient Condition:: Stable Medical Necessity - Tobacco Use Smoking Status: Never smoker Meaningful Use Info Meaningful Use Diagnoses (Choose all that apply): AMI - AMI Aspirin given w/in 24hrs of arrival?: Yes ASA at discharge?: Yes Statins at discharge?: Yes Ra/ARB at discharge?: Yes Beta Hector at discharge?: Yes Done w/ Acute LA measure.: Yes Code Visit Inpatient E AND M: [id number] Disch Hosp 03/21/18 1208 <Electronically signed by Marek Whitt MD> Date Marek Whitt MD Cosigner Signature (if applicable): Date CC: No Primary Care Physician; Marek Whitt MD Signed BEDSIDE GLUCOSE Collected: 03/21/2018 Status: F Source: [place] 11:09 AM [facility] REPOSITORY TYPE CODE TESTS RESULT OUT OF REFERENCE UNITS RANGE LAB L501.080 70-110 mg/dL High BEDSIDE GLU 190 Result Comment: MANAGEMENT OF PATIENT CARE PER NURSING PROTOCOL Performed By: #### L501.080 #### [facility] Point of Care [address] [place] [address] ACT ACTIVATED CLOTTING Collected: 03/21/2018 Status: F Source: [place] TIME 8:36 AM [facility] REPOSITORY TYPE CODE TESTS RESULT OUT OF RANGE REFERENCE UNITS LAB L9100.0100 74-137 sec High ACTk CLOT 213 TIME Performed By: #### L9100.0100 #### [facility] Point of Care [address] [place] [address] BEDSIDE GLUCOSE Collected: 03/21/2018 Status: F Source: [place] 7:02 AM [facility] REPOSITORY TYPE CODE TESTS RESULT OUT OF REFERENCE UNITS RANGE LAB L501.080 70-110 mg/dL High BEDSIDE GLU 232 Result Comment: MANAGEMENT OF PATIENT CARE PER NURSING PROTOCOL Performed By: #### L501.080 #### [facility] Point of Care [address] [place] [address] BASIC METABOLIC Collected: 03/21/2018 Status: F Source: [place] PROFILE (BMP) 5:28 AM [facility] REPOSITORY TYPE CODE TESTS RESULT OUT OF RANGE REFERENCE UNITS LAB L501.0100 74-106 mg/dL High GLU 254 Result Comment: Glucose result greater than or equal to 200 mg/dL suggests DIABETES MELLITUS per A.D.A. criteria. Please note revised GLUCOSE reference range effective 2017. LAB L501.1000 7-18 mg/dL Normal BUN 18 LAB L501.1100 0.70-1.30 mg/dL Normal CREAT,SERUM 1.05 Result Comment: The validity of the calculated GFR AND GFRAA in patients over 70 years has not been determined. Clinical correlation is essential. LAB L501.1110 >60 mL/min Normal EST GFR 77 Result Comment: Non- GFR Calc LAB L501.1115 >60 mL/min Normal EST GFR - AA 94 Result Comment: GFR Calc LAB L501.1255 ml/min Normal Estimated CRCL 80.15 LAB L501.1300 10-20 RATIO Normal BUN/CRE 17.1 LAB L501.2200 8.5-10 mg/dL Normal .1 CA 8.9 LAB L501.5300 136-14 mmol/L Normal 5 NA 141 LAB L501.5600 3.5-5. mmol/L Normal 1 K 4.5 Result Comment: Slight Hemolysis, Result may be falsely increased. LAB L501.5900 98-107 mmol/L Normal CL 106 LAB L501.6100 21.0-32.0 mmol/L Normal CO2 24.0 LAB L501.6200 5-15 Normal GAP 11 Performed By: #### L500.2500 #### [facility] [address] [place], [address] CBC W/DIFF, AUTOMATED Collected: 03/21/2018 Status: F Source: [place] 5:28 AM [facility] REPOSITORY TYPE CODE TESTS RESULT OUT OF RANGE REFERENCE UNITS LAB L100.1000 4.4-11.0 K/mm3 Normal WBC 5.9 LAB L100.1200 4.6-6.2 M/mm3 Low RBC 4.44 LAB L100.1300 13.0-16.5 g/dl Normal HGB 14.3 LAB L100.1400 40-54 % Normal HCT 40.8 LAB L100.1500 80-94 fL Normal MCV 91.9 LAB L100.1600 27.0-32.0 pg High MCH 32.2 LAB L100.1700 32-36 g/gl Normal MCHC 35.0 LAB L100.1810 11.6-14.6 % Normal RDW CV 12.3 LAB L100.1820 35.1-43.9 fl Normal RDW SD 40.9 LAB L100.1900 150-450 K/mm3 Normal PLT 202 LAB L100.2000 6.2-12.0 fl Normal MPV 10.0 LAB L100.2100 47-70 % High NEUT% 88.1 LAB L100.2200 19-41 % Low LY% 9.5 LAB L100.2300 0-10 % Normal MONO% 2.2 LAB L100.2400 0-5 % Normal EO% 0.2 LAB L100.2500 0-1 % Normal BASO% 0.0 LAB L100.2550 0.0-0.9 % Normal IM GRAN % 0.000 Result Comment: IG% - Immature Granulocytes (promyelocytes, myelocytes and metamyelocytes) > 1% indicates that a LEFT SHIFT is Present. LAB L100.2620 2.0-7.7 X10 3/uL Normal Absolute Neut 5.2 LAB L100.2720 0.83-4.51 X10 3/ul Low Absolute Lymph 0.56 LAB L100.4500 Normal SMEAR COMMENT SCANNED Performed By: #### L100.0100 #### [facility] [address] [facility] [place], [address] PROTHROMBIN TIME W/INR Collected: 03/21/2018 Status: F Source: [place] 5:28 AM [facility] REPOSITORY TYPE CODE TESTS RESULT OUT OF RANGE REFERENCE UNITS LAB L300.4150 11.7-14.9 SECONDS Normal PROTIME 14.3 LAB L300.4200 Normal INR 1.1 Performed By: #### L300.3900, L300.4310 #### [facility] [address] [facility] [place], [address] PARTIAL THROMBOPLAST Collected: 03/21/2018 Status: F Source: [place] TIME 5:28 AM [facility] REPOSITORY TYPE CODE TESTS RESULT OUT OF RANGE REFERENCE UNITS LAB L300.4310 24.1-36.2 Seconds Normal PTT 30.9 Performed By: #### L300.3900, L300.4310 #### [facility] [address] [facility] [place], [address] HOSP Observed: 03/21/2018 Status: COMPLETED Source: [place] 12:00 AM CLINIC OTHER CAMPUS REPOSITORY Patient:Carlos Buckner MRN: <[id number]> Height:5' 8(1.727 m) Weight:232 lb (105.235 kg) Outpatient Medications as of 03/28/18: atorvastatin (LIPITOR) 80 mg tablet empagliflozin (JARDIANCE) 25 mg tablet glimepiride (AMARYL) 4 mg tablet blood sugar diagnostic (BLOOD GLUCOSE TEST) test strip lisinopril 2.5 mg tablet metFORMIN (GLUCOPHAGE) 1,000 mg tablet Ibuprofen 200 mg cap Blood-Glucose Meter monitoring kit Lancets lancets COMPOUNDED PRESCRIPTION Admission/Clinic Administered Medications as of 03/28/18: lactated ringers infusion dilTIAZem 50 mg in NaCl 0.9% 500 mL heparin 3,000 Units in NaCl 0.9% 500 mL irrigation PHENYLephrine 20 mg in NaCl 0.9% 250 mL (NEOSYNEPHRINE) aminocaproic acid 10 g in NaCl 0.9% 250 mL (AMicAR) dexmedetomidine 400 mcg in NaCl 0.9% 100 mL (PRECEDEX) EPINEPHrine 4 mg in NaCl 0.9% 250 mL insulin regular iv infusion 250 units in NaCl 0.9% 250 mL - AK CARD SURG NOMOGRAM nitroglycerin 100 mg in D5W 250 mL PHENYLephrine iv infusion 10 mg in NaCl 0.9% 250 mL (UMBERTO-SYNEPHRINE) anticoagulant CPDA-1 39 mL, potassium chloride 36 mEq, sodium bicarbonate 45 mEq, Lidocaine HCl(PF) 180 mg in NaCl 0.9% 250 mL (CARDROPLEGIA SOLUTION - BAG 1) potassium chloride 25 mEq, Lidocaine HCl(PF) 100 mg in NaCl 0.9% 500 mL (CARDIOPLEGIA SOLUTION - BAG 2) insulin lispro 12 Units pen (rapid acting) (HumaLOG KWIKPEN) insulin regular iv infusion 250 units in NaCl 0.9% 250 mL - AK CARD SURG NOMOGRAM insulin detemir U-100 30 Units injection (long acting) (LEVEMIR) insulin lispro pen (rapid acting) (HumaLOG KWIKPEN) aspirin 81 mg chewable tab(s) 0.9% NaCl 3-5 mL atorvastatin 80 mg tab(s) (LIPITOR) dextrose 40 % 15 g glucagon 1 mg injection (GLUCAGEN) dextrose 50% in water 25 mL syringe nitroglycerin sublingual 0.4 mg tab(s) (NITROQUICK) metoprolol tartrate (short acting) 25 mg tab(s) (LOPRESSOR) losartan 25 mg tab(s) (COZAAR) Problem List: Hyperlipemia [E78.5] TEOFILO (obstructive sleep apnea) [G47.33] DM (diabetes mellitus), type 2, uncontrolled (HCC) [E11.65] Erectile dysfunction associated with type 2 diabetes mellitus (HCC) [E11.69, N52.1] Hypertriglyceridemia [E78.1] HTN (hypertension) [I10] Chest pain [R07.9] CAD (coronary artery disease) [I25.10] ACS (acute coronary syndrome) (HCC) [I24.9] NSTEMI (non-ST elevated myocardial infarction) ([facility]) [I21.4] Allergies: Oysters Shellfish Containing Products Date Verified: 03/28/18 Lab Values Lab Value Units Date High Low POTA* 3.8 mEq/L 03/28/2018 5.1 3.5 RANCHO* 37.9 % 03/28/2018 51.0 40.1 Progress Notes (): Jackelin Juárez, RN, RN 03/21/2018 9:23 PM Signed Sound Admit pager #[phone] text paged to notify of pt's arrival. VSS, pt has no new complaints, pt resting comfortably in room. Will continue to monitor. Veronica Najera MD 03/21/2018 11:04 PM Addendum DEPARTMENT OF HOSPITAL MEDICINE HISTORY AND PHYSICAL EXAM SERVICE DATE: 03/21/2018 SERVICE TIME: 10:43 PM Primary Care Physician: Rick Camacho MD NIGHT AND WEEKEND COVERAGE: After 7pm, please call cross cover pager #[phone] Subjective CHIEF COMPLAINT: CAD HPI: This is a 57 year old male who presented to [place] two days ago with chest pain, found to have NSTEMI. Today he had cardiac cath done with findings of three vessels disease and was transferred to [facility] for CTS evaluation for CABG. At present time he is asymptomatic. PAST MEDICAL HISTORY Diagnosis Date - HLD (hyperlipidemia) - HTN (hypertension) 06/10/2017 - Obstructive sleep apnea - Type II or unspecified type diabetes mellitus without mention of complication, not stated as uncontrolled PAST SURGICAL HISTORY Procedure Laterality Date - COLONOSCOP W/ OR W/O [facility] SPEC 01/17/15 Colonoscopy - KIDNEY SURGERY HX - LITHOTRIPSY PROC UNILATERAL 2006 left side done in [place] - PAST SURGICAL HISTORY OF dog bite age 5 - PAST SURGICAL HISTORY OF chainsaw injury FAMILY HISTORY Problem Relation Age of Onset - other (polio) Mother - Emphysema Father - Diabetes Maternal Grandfather - COPD Paternal Grandmother - COPD Paternal Grandfather Social History Substance Use Topics - Smoking status: Never Smoker - Smokeless tobacco: Never Used - Alcohol use No MEDICATIONS: Reviewed ALLERGIES Allergen Reactions - Oysters Rash, Itching REVIEW OF SYSTEM: GENERAL: No weight loss, malaise or fevers HEENT: Negative for frequent or significant headaches, No changes in hearing or vision, no nose bleeds or other nasal problems NECK: Negative for lumps, goiter, pain and significant neck swelling RESPIRATORY: +shortness of breath CARDIOVASCULAR:+chest pain GI: No nausea, vomiting, or diarrhea : No history of dysuria, frequency or incontinence MUSCULOSKELETAL: Negative for joint pain or swelling, back pain or muscle pain SKIN: Negative for lesions, rash, and itching PSYCH: Negative for sleep disturbance, mood disorder and recent psychosocial stressors HEMATOLOGY/LYMPHOLOGY: Negative for prolonged bleeding, bruising easily or swollen nodes ENDOCRINE: Negative for cold or heat intolerance, polyuria, polydipsia and goiter NEURO: No history of headaches, syncope, paralysis, seizures or tremors Objective PHYSICAL EXAM: BP 131/79 Pulse 97 Temp (Src) 98.2 (Oral) Resp 18 Ht 5' 8 (1.73m) Wt 235 lb 3.2 oz (106.7kg) SpO2 97% BMI 35.77 kg/(m2). GENERAL: Alert, no distress, cooperative SKIN: Skin color, texture, turgor normal. No rashes or lesions. HEENT: normocephalic, atraumatic, EOMI, RUBINA, sclerae anicteric NECK: No jugulovenous distention. Supple, no thyromegaly or lymphadenopathy. Trachea midline. LUNGS: Lungs clear to auscultation b/l, no wheezes, rhonchi or crackles. Good respiratory effort. CARDIAC: Normal S1 and S2; no rubs, murmurs, or gallops ABDOMEN: Abdomen soft, non-tender, BS normal, No masses or organomegaly EXTREMITIES: Extremities normal, no deformities, edema, clubbing or skin discoloration. Good capillary refill., No ulcers DATA: Diagnostic tests reviewed for today's visit: Most recent labs and imaging results. Assessment/Plan Active Problems: CAD/NSTEMI POA -s/p cardiac cath with 3 vessels disease -will c/w Lovenox 1 mg/kg -repeat troponin -consult cardiology and CTS -c/w statins, BB, ARBs, ASA Hyperlipemia POA: Yes Assessment AND Plan: -c/w statins TEOFILO (obstructive sleep apnea) POA: Yes Assessment AND Plan: -c/w CPAP DM (diabetes mellitus), type 2, uncontrolled (HCC) POA: Yes Assessment AND Plan: -accucheck achs -c/w Amaryl, add ISS VTE Prophylaxis: Patient is already anti-coagulated. Disposition: Home Plan of care discussed with: Patient SIGNATURE: Veronica Najera MD PATIENT NAME: Carlos Buckner DATE: March 21, 2018 TIME: 10:43 PM PAGER/CONTACT #: Previous Version Bentley Hednrix MD 03/22/2018 9:31 AM Signed CONSULT: CARDIOLOGY SERVICE SERVICE DATE: 03/22/2018 CONSULTING PHYSICIAN: Bentley Hendrix MD PCP: Rick Camacho MD ATTENDING: Mirta Ruiz REASON FOR CONSULT: NSTEMI, 3V CAD Subjective CHIEF COMPLAINT: cad HISTORY OF PRESENT ILLNESS: Mr. 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 Patient transferred to [facility] for evaluation for CABG. Patient reports that for the last 2 weeks, he has had exertional symptoms of substernal chest pressure with mild shortness of breath that would improve with resting. He thought his symptoms were due to being out of shape. However, he woke up on the morning of 03/19 with severe substernal chest pressure with radiation to his shoulders. As his symptoms were not improving, he went to [facility] for further evaluation. In the ER, he was given sl ntg with resolution of his symptoms. He was found to have elevated troponins peaking at 2.14. He underwent cardiac catheterization revealing 3V CAD. He was transferred to [facility] for evaluation for CABG. In discussion with the patient, he denies any further episodes of chest pain/pressure since admission to the hospital. He otherwise denies any significant symptoms of orthopnea, paroxysmal nocturnal dyspnea, lower extremity edema, claudication, presyncope, syncope, or palpitations. His cardiac risk factors include hypertension, hyperlipidemia, and diabetes. PAST MEDICAL HISTORY Diagnosis Date - HLD (hyperlipidemia) - HTN (hypertension) 06/10/2017 - Obstructive sleep apnea - Type II or unspecified type diabetes mellitus without mention of complication, not stated as uncontrolled PAST SURGICAL HISTORY Procedure Laterality Date - COLONOSCOP W/ OR W/O [facility] SPEC 01/17/15 Colonoscopy - KIDNEY SURGERY HX - LITHOTRIPSY PROC UNILATERAL 2006 left side done in [place] - PAST SURGICAL HISTORY OF dog bite age 5 - PAST SURGICAL HISTORY OF chainsaw injury FAMILY HISTORY Problem Relation Age of Onset - other (polio) Mother - Emphysema Father - Diabetes Maternal Grandfather - COPD Paternal Grandmother - COPD Paternal Grandfather Social History Substance Use Topics - Smoking status: Never Smoker - Smokeless tobacco: Never Used - Alcohol use No Prior to Admission Medications Prescriptions Last Dose Informant Patient Reported? Taking? Blood-Glucose Meter monitoring kit No No Sig: Glucose Meter of Choice - Kit - Dx: Type 2 DM - Uncontrolled E11.65 (per insurance) COMPOUNDED PRESCRIPTION No No Sig: CPAP @ 8 cm of water with humidification. Mask (per patient preference) optional chin strap (if indicated) , filters, tubing, humidifier and lifetime supplies. Dx. TEOFILO 327.23 Ibuprofen 200 mg cap Yes No Sig: Take 200 mg by mouth once daily. Lancets lancets No No Sig: Test blood sugar(s) 2x daily. Dx: E11.65. Insulin: No atorvastatin (LIPITOR) 80 mg tablet No Yes Sig: TAKE ONE TABLET BY MOUTH ONCE DAILY blood sugar diagnostic (BLOOD GLUCOSE TEST) test strip No No Sig: Test blood sugar(s) 2x daily. Dx: E11.65. Insulin: No empagliflozin (JARDIANCE) 25 mg tablet No Yes Sig: Take 1 tablet by mouth once daily. glimepiride (AMARYL) 4 mg tablet No Yes Sig: Take 1 tablet by mouth twice daily with meals. lisinopril 2.5 mg tablet No Yes Sig: Take 1 tablet by mouth once daily. metFORMIN (GLUCOPHAGE) 1,000 mg tablet No Yes Sig: Take 1 tablet by mouth twice daily with meals. Facility-Administered Medications: None Current hospital medications: 0.9% NaCl 3-5 mL 3-5 mL INTRAVENOUS q 12 H glimepiride 4 mg tab(s) (AMARYL) 4 mg ORAL BID w MEALS atorvastatin 80 mg tab(s) (LIPITOR) 80 mg ORAL AT BEDTIME dextrose 40 % 15 g 15 g ORAL PRN glucagon 1 mg injection (GLUCAGEN) 1 mg INTRAMUSCULAR PRN dextrose 50% in water 25 mL syringe 12.5 g INTRAVENOUS PRN enoxaparin 105 mg injection (LOVENOX) 1 mg/kg/dose SUBCUTANEOUS q 12 HR nitroglycerin sublingual 0.4 mg tab(s) (NITROQUICK) 0.4 mg SUBLINGUAL PRN metoprolol tartrate (short acting) 25 mg tab(s) (LOPRESSOR) 25 mg ORAL q 12 H losartan 25 mg tab(s) (COZAAR) 25 mg ORAL DAILY aspirin 81 mg chewable tab(s) 81 mg ORAL DAILY insulin lispro pen (rapid acting) (HumaLOG KWIKPEN) SUBCUTANEOUS w MEALS AND HS ALLERGIES Allergen Reactions - Oysters Rash, Itching Review of Systems: 03/13 systems reviewed and negative except as per above Physical Examination: 03/21/18212503/22/18 0014 03/22/18 0504 03/22/18 0800 BP: 142/84 118/73 126/69 Pulse: 93 80 87 Resp: 18 16 Temp: 36.6 ?C (97.9 ?F) 36.4 ?C (97.5 ?F) TempSrc: Oral Temporal Artery SpO2: 98% 98% Weight: 106.7 kg (235 lb 3.2 oz) Height: Patient Vitals for the past 12 hrs: BP Temp Temp src Pulse Resp SpO2 Weight 03/22/18 0800 126/69 36.4 ?C (97.5 ?F) Temporal Art 87 16 98 % - 03/22/18 0504 118/73 36.6 ?C (97.9 ?F) Oral 80 18 98 % - 03/22/18 0014 142/84 - - 93 - - - 03/21/182125 - - - - - - 106.7 kg (235 lb 3.2 oz) General appearance: Obese, alert, appears to be in no acute distress, cooperative Head: Normocephalic, atraumatic HEENT: Extraocular movements intact; mucous membranes moist; no JVD Lungs: CTAB; no rales, rhonchi, or wheezes Heart: RRR; normal S1/S2; no murmurs/gallops/rubs Abdomen: Abdomen soft, obese, mildly distended, non-tender. NABS Extremities: No lower extremity edema bilaterally; extremities warm to touch Skin: No rashes noted Neurologic: Nonfocal Psych: Normal mood/affect DATA: Past 72 Hour Labs: Recent Labs 03/22/18 0507 03/21/18 2230 NA 137 -- K 3.8 -- CA 8.8 -- MG -- 2.3 BUN 22* -- CREAT 0.93 -- GLUC 200* -- WBC 6.81 -- HB 13.8 -- PLT 202 -- TROPI -- 0.517* ALB 3.4 -- ALKPHOS 110 -- TBILI 0.5 -- AST 8* -- ALT 24 -- Trop 0.29 -> 0.841 -> 1.18 -> 2.14 -> 1.9 -> 0.517 Last Lab Drawn: Triglyceride 304 06/10/2017 HDL Cholesterol 27 06/10/2017 LDL Chol, [place] 31 06/10/2017 Cholesterol, Total 119 06/10/2017 CARDIAC WORKUP: EKG: EKG, 03/21/18: Normal sinus rhythm; nonspecific T wave abnormality; low voltage QRS in limb leads Coronary angiography: Left Heart Catheterization, 03/21/18: EF 55% with hypokinetic anterior, apical, and inferior mulligan. LVEDP 33. 75% mid LAD, 85% pD1, 95% mOM1, 100% pOM1, 85% pRCA, 100% mRDA with collaterals to dRCA from L to R I personally reviewed patient's labs, EKG, and report of recent cardiac catheterization. I personally spent 20 minutes reviewing records from [facility]. AANDP: Mr. 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 Patient transferred to [facility] for evaluation for CABG. 1. NSTEMI w/ 3V CAD: - Will request records of recent TTE at [facility] - Continue optimal medical therapy with ASA, lipitor, metoprolol, losartan, and therapeutic lovenox - Recommend use of sl ntg if patient with recurrent episodes of chest pain - Agree with CT surgery c/s for evaluation for CABG 2. Hypertension: Patient's blood pressure is well controlled on his current antihypertensive regimen. 3. Hyperlipidemia: Continue high intensity statin therapy with lipitor 80 mg qhs 4. Obstructive sleep apnea: Continue CPAP therapy We will continue to follow with you. Please call if further ?s. 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 The similar pain was resolvable with rest before and is now a constant dull pain at the mid-sternal region. He noticed exertional chest pain about 2-3 weeks ago. Pain is precipitated and worsen with exertion. On Wednesday, he woke up in pain rated 4-7/10, pressure-like pain that wont resolved like before, so he brought himself to ED. He had initially negative troponin, his EKG at the time showed: sinus tachycardia with no acute EKG changes. He was then treated with ASA and nitro with improvement in symptoms but his troponin subsequent positive post medical therapy of ASA and Nitro, which peaked at 2.14. He underwent Heart cath and found 3 vessel disease then was loaded with Plavix and transferred to [facility] for CABG evaluation. Patient denied hx of CHF, Arrhythmia, CVA, COPD or leg edema. FH: negative of cardiac disease SH: Never smoker Patient is Able to Perform the Following Physical Activity: Do moderate work around the house such as vacuuming, sweeping floors, or carrying in groceries (3.50 METs) Patient has the following medical comorbidities which might affect the perioperative course: - CAD of the [place] vessel. No interventions.. - Type II Diabetes with no complications. Patient is on oral medications. - Hypertension, well controlled. - Patient with sleep apnea and uses CPAP. PAST MEDICAL HISTORY Diagnosis Date - HLD (hyperlipidemia) - HTN (hypertension) 06/10/2017 - Obstructive sleep apnea - Type II or unspecified type diabetes mellitus without mention of complication, not stated as uncontrolled PAST SURGICAL HISTORY Procedure Laterality Date - COLONOSCOP W/ OR W/O [facility] SPEC 01/17/15 Colonoscopy - KIDNEY SURGERY HX - LITHOTRIPSY PROC UNILATERAL 2006 left side done in [place] - PAST SURGICAL HISTORY OF dog bite age 5 - PAST SURGICAL HISTORY OF chainsaw injury FAMILY HISTORY Problem Relation Age of Onset - other (polio) Mother - Emphysema Father - Diabetes Maternal Grandfather - COPD Paternal Grandmother - COPD Paternal Grandfather Social History Substance Use Topics - Smoking status: Never Smoker - Smokeless tobacco: Never Used - Alcohol use No Prescriptions Prior to Admission: atorvastatin (LIPITOR) 80 mg tablet TAKE ONE TABLET BY MOUTH ONCE DAILY Disp: 30 tablet Rfl: 0 empagliflozin (JARDIANCE) 25 mg tablet Take 1 tablet by mouth once daily. Disp: 90 tablet Rfl: 3 glimepiride (AMARYL) 4 mg tablet Take 1 tablet by mouth twice daily with meals. Disp: 180 tablet Rfl: 3 lisinopril 2.5 mg tablet Take 1 tablet by mouth once daily. Disp: 30 tablet Rfl: 5 metFORMIN (GLUCOPHAGE) 1,000 mg tablet Take 1 tablet by mouth twice daily with meals. Disp: 180 tablet Rfl: 3 blood sugar diagnostic (BLOOD GLUCOSE TEST) test strip Test blood sugar(s) 2x daily. Dx: E11.65. Insulin: No Disp: 100 Strip Rfl: 11 Ibuprofen 200 mg cap Take 200 mg by mouth once daily. Disp: Rfl: Blood-Glucose Meter monitoring kit Glucose Meter of Choice - Kit - Dx: Type 2 DM - Uncontrolled E11.65 (per insurance) Disp: 1 Each Rfl: 0 Lancets lancets Test blood sugar(s) 2x daily. Dx: E11.65. Insulin: No Disp: 100 Each Rfl: 11 COMPOUNDED PRESCRIPTION CPAP @ 8 cm of water with humidification. Mask (per patient preference) optional chin strap (if indicated) , filters, tubing, humidifier and lifetime supplies. Dx. TEOFILO 327.23 Disp: 1 Device Rfl: 0 01/16/2015 at am atorvastatin (LIPITOR) 80 mg tablet TAKE ONE TABLET BY MOUTH ONCE DAILY empagliflozin (JARDIANCE) 25 mg tablet Take 1 tablet by mouth once daily. glimepiride (AMARYL) 4 mg tablet Take 1 tablet by mouth twice daily with meals. lisinopril 2.5 mg tablet Take 1 tablet by mouth once daily. metFORMIN (GLUCOPHAGE) 1,000 mg tablet Take 1 tablet by mouth twice daily with meals. blood sugar diagnostic (BLOOD GLUCOSE TEST) test strip Test blood sugar(s) 2x daily. Dx: E11.65. Insulin: No Ibuprofen 200 mg cap Take 200 mg by mouth once daily. Blood-Glucose Meter monitoring kit Glucose Meter of Choice - Kit - Dx: Type 2 DM - Uncontrolled E11.65 (per insurance) Lancets lancets Test blood sugar(s) 2x daily. Dx: E11.65. Insulin: No COMPOUNDED PRESCRIPTION CPAP @ 8 cm of water with humidification. Mask (per patient preference) optional chin strap (if indicated) , filters, tubing, humidifier and lifetime supplies. Dx. TEOFILO 327.23 ALLERGIES Allergen Reactions - Oysters Rash, Itching REVIEW OF SYSTEMS: PAIN ASSESSMENT: Negative for pain, history of chronic pain, or current treatment for a chronic pain condition. GENERAL: No weight loss, malaise or fevers NECK: Negative for lumps, goiter, pain and significant neck swelling RESPIRATORY: Negative for cough, wheezing or shortness of breath. CARDIOVASCULAR: See HPI GI: Negative for abdominal discomfort, blood in stools or black stools or change in bowel habits : No history of dysuria, frequency or incontinence MUSCULOSKELETAL: Negative for joint pain or swelling, back pain or muscle pain. SKIN: Negative for lesions, rash, and itching. PSYCH: Negative for sleep disturbance, mood disorder and recent psychosocial stressors. HEMATOLOGY/LYMPHOLOGY Negative for prolonged bleeding, bruising easily or swollen nodes. ENDOCRINE: Negative for cold or heat intolerance, polyuria, polydipsia and goiter. NEURO: No history of headaches, syncope, paralysis, seizures or tremors See HPI Objective PHYSICAL EXAM: BP 126/69 Pulse 87 Temp 36.4 ?C (97.5 ?F) (Temporal Artery) Resp 16 Ht 172.7 cm (5' 8) Wt 106.7 kg (235 lb 3.2 oz) SpO2 98% BMI 35.76 kg/m? Body surface area is 2.26 meters squared. STS RISK CALCULATOR: 1.123% without Echo report. General Appearance: well developed and no distress Skin: warm and dry Lungs: clear and respiratory effort: normal Heart: regular rhythm, S1, S2 normal and no murmur Peripheral Vascular/Arteries: pulses intact, dorsalis pedis +2 and radial +2 Abdomen: soft, non-tender and bowel sounds present Genitourinary: voiding without difficulty Musculoskeletal: no deformities Neurologic/Psychiatric: oriented to time, place and person and steady gait Extremities: normal exam of the extremities and no edema Lines, Drains, and Airways Line Peripheral Assessment Short Left Forearm 20 Gauge -- days @LDAASSESS(2::::8:)@ DATA: Diagnostic tests reviewed for today's visit: Labs: troponin: 0.29-0.841-1.18-2.14-1.9 PT/INR (03/21): 14.3/1.1 Cardiac Catheterization 03/21: Left heart assessment: anterior hypokinesis. Apical hypokinesis, inferior basal hypokinesis, inferior mid hypokinesis LV gram: 55% Elevated LVEDP: 33 mmHg Mild Segmented LV systolic dysfunction Left main: normal LAD: mild luminal irregularities Prox LAD: Eccentric : 50% stenosis Diagonal 1: proximal-long: diffused: irregular: 85% stenosis Circumflex: prox Circ: mild luminal irregularities OM1: proximal-is subtotally occluded, mid-95% stenosis RCA: prox RCA: LONG- DIFFUSED: IRREGULAR: 85% MID RCA: is subtotally occluded Distal RCA: fills late, faintly and partially from bridging collaterals and more predominantly from left to right collateral low Collateral flow: collateral from L-R Valve findings: Normal AV function Normal MV function Aortic root: angiographically normal Chest X-RAY single AP view 03/19/2018: No pleural abnormality, normal mediastinum and amanda. normal visualized pulmonary arteries, normal visualized aortic arch and descending thoracic aorta. ECHO: pending results from [place] EKG: sinus tachycardia with no acute ST-T changes. Recent Labs 03/22/18 0507 03/21/18 2230 RBC 4.35* -- WBC 6.81 -- HB 13.8 -- HCT 40.5 -- PLT 202 -- NA 137 -- K 3.8 -- CHLOR 104 -- CO2 25 -- BUN 22* -- CREAT 0.93 -- GLUC 200* -- CA 8.8 -- MG -- 2.3 P -- 3.2 TPROT 7.1 -- TBILI 0.5 -- ALKPHOS 110 -- ALT 24 -- AST 8* -- ANION 12 -- Assessment/Plan Active Problems: Hyperlipemia POA: Yes -c/w Lipitor 80 TEOFILO (obstructive sleep apnea) POA: Yes - c/w home Cpap DM (diabetes mellitus), type 2, uncontrolled (HCC) POA: Yes -A1C ordered -will consider endo consult for post-op management -c/w current meds:Amaryl, insulin Chest pain POA: Yes -currently chest pain free -work up in progress - HC from [place] is uploaded -[place] ECHO requested -will discuss case with Dr. Rose -c/w ASA, Statin, BB 25 BID - will need Plavix washout for 5 days. last dose Plavix on 03/21 @7:09am, ESSENTIAL HTN -C/W COzaar -currently VSS Tests/Labs Ordered: 1. HbA1c (average sugar test) 2. PT/INR 3. UA 4. MRSA 5. CXR 2 view 6. Bedside spirometer 7. Carotid US? 8. 5 meter walk test These findings will be communicated back to the requesting provider electronically. SIGNATURE: Alex Ortega APRN.CNP PATIENT NAME: Carlos Buckner DATE: March 22, 2018 TIME: 9:25 AM PAGER/CONTACT #:[phone] [phone] Patient seen, cath films reviewed, w/u eval to date reviewed. Inc'd risks due to poorly controlled DM, pft's, body build etc. Previous Version Raquel Villasenor MS, [facility] 03/22/2018 11:41 AM Signed CARDIAC REHAB 5 METER WALK TEST SERVICE DATE: 03/22/2018 SERVICE TIME: 03/22/18 ASSESSMENT: 5 Meter Walk Test 5 Meter Walk Test Completed: Yes Trial 1 # of Seconds: 5.79 Trial 1 Assistive Device: None Trial 2 # of Seconds: 5.19 Trial 2 Assistive Device: None Trial 3 # of Seconds: 4.54 Trial 3 Assistive Device: None SIGNATURE: Raquel Villasenor MS, [facility] PATIENT NAME: Carlos Buckner DATE: March 22, 2018 TIME: 11:41 AM PAGER/CONTACT #: [phone] Jazlyn Galicia APRN.CNP 03/28/2018 8:00 AM Signed [facility] Surgery Pre-Op Open Heart Check List Patient Info: Carlos Buckner 1960 57 year old [place] HPI: This is a 57 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 The similar pain was resolvable with rest before and is now a constant dull pain at the mid-sternal region. He noticed exertional chest pain about 2-3 weeks ago. Pain is precipitated and worsen with exertion. On Wednesday, he woke up in pain rated 4-7/10, pressure-like pain that wont resolved like before, so he brought himself to ED. He had initially negative troponin, his EKG at the time showed: sinus tachycardia with no acute EKG changes. He was then treated with ASA and nitro with improvement in symptoms but his troponin subsequent positive post medical therapy of ASA and Nitro, which peaked at 2.14. He underwent Heart cath and found 3 vessel disease then was loaded with Plavix and transferred to [facility] for CABG evaluation. Patient denied hx of CHF, Arrhythmia, CVA, COPD or leg edema. Last set of vitals: BP 131/75 Pulse 79 Temp 36.1 ?C (97 ?F) (Tympanic) Resp 18 Ht 172.7 cm (5' 8) Wt 106.7 kg (235 lb 3.2 oz) SpO2 96% BMI 35.76 kg/m? Wt: 110.2 kg (243 lb) BMI: 36.95 kg/(m2) Procedure: cabg Diagnosis: nstemi Date of Procedure: tbd STS Risk Score: 1.123% w/o ECHO Repeat 0.669% with echo and PFT CARE TEAM: Cardiac Surgeon: Dr. Rose Rework Operator: Dr. Rodriguez PCP: Dr. Camacho Other Providers: n/a Pre-Op Testing: LABS: No results found for: TROPT Recent Labs 03/22/18 1024 03/22/18 0507 03/21/18 2230 HBA1C 8.2* -- -- RBC -- 4.35* -- WBC -- 6.81 -- HB -- 13.8 -- HCT -- 40.5 -- PLT -- 202 -- INR 1.06 -- -- NA -- 137 -- K -- 3.8 -- CHLOR -- 104 -- CO2 -- 25 -- BUN -- 22* -- CREAT -- 0.93 -- GLUC -- 200* -- CA -- 8.8 -- MG -- -- 2.3 P -- -- 3.2 TPROT -- 7.1 -- TBILI -- 0.5 -- ALKPHOS -- 110 -- ALT -- 24 -- AST -- 8* -- ANION -- 12 -- Hemoglobin (g/dL) Date Value 03/19/2016 13.7 HGB (g/dL) Date Value 03/22/2018 13.8 Hematocrit (%) Date Value 03/22/2018 40.5 WBC (thou/cmm) Date Value 03/22/2018 6.81 Platelet Count (thou/cmm) Date Value 03/22/2018 202 Chemistry Glucose (mg/dL) Date Value 03/22/2018 200 Potassium (mEq/L) Date Value 03/22/2018 3.8 Sodium (mEq/L) Date Value 03/22/2018 137 Chloride (mEq/L) Date Value 03/22/2018 104 CO2 (mEq/L) Date Value 03/22/2018 25 Creatinine (mg/dL) Date Value 03/22/2018 0.93 BUN (mg/dL) Date Value 03/22/2018 22 Anion Gap (no units) Date Value 03/22/2018 12 Calcium (mg/dL) Date Value 03/22/2018 8.8 Protein, Total (g/dL) Date Value 03/22/2018 7.1 Albumin (g/dL) Date Value 03/22/2018 3.4 Bilirubin, Total (mg/dL) Date Value 03/22/2018 0.5 Alkaline Phosphatase (U/L) Date Value 03/22/2018 110 AST (U/L) Date Value 03/22/2018 8 ALT (U/L) Date Value 03/22/2018 24 Coag Results for CARLOS BUCKNER ( ) as of 03/22/2018 14:06 Ref. Range 03/22/2018 10:24 Prothrombin Time Latest Ref Range: 9.7 - 13.0 sec 11.0 INR Latest Ref Range: 0.90 - 1.30 1.06 UA Results for CARLOS BUCKNER ( ) as of 03/22/2018 14:06 Ref. Range 03/22/2018 11:55 Color Unknown YELLOW Specific [place], Ur Latest Ref Range: 1.005 - 1.030 1.039 (A) pH, Urine Latest Ref Range: 5.0 - 8.0 5.5 Protein, Urine Latest Ref Range: Negative mg/dL NEGATIVE Glucose, Urine Latest Ref Range: Negative mg/dL >=1000 (A) Ketones, Urine Latest Ref Range: Negative mg/dL TRACE (A) Bilirubin, Urine Latest Ref Range: Negative NEGATIVE Urobilinogen, Urine Latest Ref Range: 0.0 - 1.0 EU/dL 1.0 WBC, Urine Latest Ref Range: 0.0 - 5.0 /hpf 0.4 RBC, Urine Latest Ref Range: 0.0 - 5.0 /hpf 2.8 EP Cells Urine Latest Ref Range: 0.0 - 5.0 /hpf 0.1 Hemoglobin, Urine Latest Ref Range: Negative NEGATIVE Bacteria, Urine Latest Ref Range: None NONE Hyaline Cast Latest Ref Range: 0.0 - 1.0 /lpf 0.0 Leukocytes Esterase Latest Ref Range: Negative NEGATIVE Nitrites Urine Latest Ref Range: Negative NEGATIVE Urine Appearance Unknown CLEAR Type AND Screen: A+, Negative Ab screen RBC Cross match: 2 units ordered MRSA Screen: Negative and mupirocin prophylaxis started 03/22 HGA1C Lab Results Component Value Date HBA1C 8.2 03/22/2018 HBA1C 9.2 04/30/2017 HBA1C 9.3 01/20/2017 PFT/ABG: FEVI: 72% DLCO: ABG: Recent Labs 03/22/18 0507 CO2 25 . IMAGING/PROCEDURES Cardiac Catheterization 03/21: Left heart assessment: anterior hypokinesis. Apical hypokinesis, inferior basal hypokinesis, inferior mid hypokinesis LV gram: 55% Elevated LVEDP: 33 mmHg Mild Segmented LV systolic dysfunction ? Left main: normal LAD: mild luminal irregularities Prox LAD: Eccentric : 50% stenosis Diagonal 1: proximal-long: diffused: irregular: 85% stenosis ? Circumflex: prox Circ: mild luminal irregularities OM1: proximal-is subtotally occluded, mid-95% stenosis ? RCA: prox RCA: LONG- DIFFUSED: IRREGULAR: 85% MID RCA: is subtotally occluded Distal RCA: fills late, faintly and partially from bridging collaterals and more predominantly from left to right collateral low ? Collateral flow: collateral from L-R ? Valve findings: Normal AV function Normal MV function ? Aortic root: angiographically normal ? ? Chest X-RAY single AP view 03/19/2018: No pleural abnormality, normal mediastinum and amanda. normal visualized pulmonary arteries, normal visualized aortic arch and descending thoracic aorta. ? ECHO: EF: 55% LV: normal LV size segmental dysfunction with preserved ejection fraction. The estimated ejection fraction is 55%. Transmural Doppler flow suggested suggestive of impaired relaxation of the left ventricle. inferobasal: Hypokinetic, mid lateral: hypokinetic, mid posterior: hypokinetic, mid inferior: hypokinetic, anterior apex: Hypokinetic, inferior apex: Hypokinetic. RV: Normal size and normal function Atria: Normal left atrium, normal right atrium. No Doppler evidence for ASD MV: No mitral annular calcification. Normal mitral valve. Mild 1+ mitral valve insufficiency. TV: normal tricuspid valve. Trivial tricuspid valve insufficiency. RVSP 25 mmHg AV: Trisinus trileaflet aortic valve. Mild focal aortic valve calcification. PV: The pulmonic valve is not well visualized. Great vessels: Normal sized aortic root Pericardium: No pericardial effusion. EKG: sinus tachycardia with no acute ST-T changes. ? 5 Meter Walk Test: 5 Meter Walk Test Completed: Yes Trial 1 # of Seconds: 5.79 Trial 1 Assistive Device: None Trial 2 # of Seconds: 5.19 Trial 2 Assistive Device: None Trial 3 # of Seconds: 4.54 Trial 3 Assistive Device: None OPTIONAL TESTINGS: Carotid U/S: N/A Lower EXT HADLEY: n/a Palmar Arch: n/a Vein Mapping: n/a Dental Clearance: n/a CT Chest: n/a Medications Notes: Blood thinners: Patient is on following blood thinners: Aspirin -Yes, dose 81 mg, stopped No, date:DOS Plavix - Yes, dose 75 mg, stopped Yes, date:03/21 @7:09AM Beta Hector: Last dose of beta hector taken: DOS Perioperative Transfusion risk STS Risk Factors: Advanced age No Preoperative anemia No Non-CABG surgery No Preoperative anticoagulation Yes, Plavix stopped 03/21 @7am Clotting abnormalities No Female gender No Small body habitus No Renal insufficiency No IDDM Yes Sepsis No Liver disease No Preioperative Wound Healing - Vest recommended Yes, RF: T2DM, BMI>30 Risk Factors: Obesity Yes DM Yes Renal Dx No CLEARANCES NEEDED Pulmonary: No Hematology: No Nephrology No Vascular surgery No Other No Alex Ortega APRN.[employer] Previous Version Mirta Ruiz MD 03/22/2018 5:10 PM Signed INTERNAL MEDICINE PROGRESS NOTE ADMIT DATE: 03/21/2018 9:06 PM SERVICE DATE: 03/22/2018 INTERVAL HISTORY: F/u : CAD S: Pt has no complaints. Pt denies any chest pain, palpitations, nausea, vomiting, diarrhea, constipation, shortness of breath, light head, dizziness, headache, dysuria, abdominal pain Advised pt to ambulate hallways. MEDICATIONS: Current hospital medications: [START ON 03/23/2018] aspirin 81 mg chewable tab(s) 81 mg ORAL DAILY (6 AM) mupirocin ointment (BACTROBAN) NASAL BID 0.9% NaCl 3-5 mL 3-5 mL INTRAVENOUS q 12 H glimepiride 4 mg tab(s) (AMARYL) 4 mg ORAL BID w MEALS atorvastatin 80 mg tab(s) (LIPITOR) 80 mg ORAL AT BEDTIME dextrose 40 % 15 g 15 g ORAL PRN glucagon 1 mg injection (GLUCAGEN) 1 mg INTRAMUSCULAR PRN dextrose 50% in water 25 mL syringe 12.5 g INTRAVENOUS PRN enoxaparin 105 mg injection (LOVENOX) 1 mg/kg/dose SUBCUTANEOUS q 12 HR nitroglycerin sublingual 0.4 mg tab(s) (NITROQUICK) 0.4 mg SUBLINGUAL PRN metoprolol tartrate (short acting) 25 mg tab(s) (LOPRESSOR) 25 mg ORAL q 12 H losartan 25 mg tab(s) (COZAAR) 25 mg ORAL DAILY insulin lispro pen (rapid acting) (HumaLOG KWIKPEN) SUBCUTANEOUS w MEALS AND HS PHYSICAL EXAM: VITAL SIGNS 03/22/18 0504 03/22/18 0800 03/22/18 1200 03/22/18 1600 BP: 118/73 126/69 131/75 124/75 Pulse: 80 87 79 82 Resp: Temp: 36.6 ?C (97.9 ?F) 36.4 ?C (97.5 ?F) 36.1 ?C (97 ?F) 36.9 ?C (98.4 ?F) TempSrc: Oral Temporal Artery Tympanic Oral SpO2: 98% 98% 96% 96% Weight: Height: Temp (24hrs), Av.6 ?C (97.8 ?F), Min:36.1 ?C (97 ?F), Max:36.9 ?C (98.4 ?F) Body mass index is 35.76 kg/m?. INTAKE/OUTPUT Intake/Output Summary (Last 24 hours) at 03/22/18 1707 Last data filed at 03/22/18 1100 Gross per 24 hour Intake 360 ml Output 450 ml Net -90 ml Physical Exam: Gen: Alert and Orientated x 3, No acute distress HEENT: EOMI, PERRLA, anicteric, no pallor, no facial droop CV: S1/S2 regular rate and rhythm, no murmurs, rubs and gallops, no reproducible pain, + 2 radial pulses - equal Resp: Clear to auscultation bilaterally, no wheezes, rales, rhonchi or crackles Abd: + Bowel sounds, soft, non-tender, non-distended Ext: no pitting edema LAB DATA: CBC: Recent Labs 03/22/18 0507 WBC 6.81 HB 13.8 HCT 40.5 PLT 202 MCV 93.1 COAG: Recent Labs 03/22/18 1024 INR 1.06 BMP: Recent Labs 03/22/18 0507 GLUC 200* NA 137 K 3.8 CHLOR 104 CO2 25 ANION 12 BUN 22* CREAT 0.93 CHEM: Recent Labs 03/22/18 0507 03/21/18 2230 ALB 3.4 -- TPROT 7.1 -- CA 8.8 -- MG -- 2.3 ASSESSMENT AND PLAN: # CAD/NSTEMI -s/p cardiac cath with 3 vessels disease -will c/w Lovenox 1 mg/kg -c/w statins, BB, ARBs, ASA - appreciate CTS recs ? # Hyperlipemia -c/w statins ? # TEOFILO (obstructive sleep apnea) - c/w CPAP ? # DM (diabetes mellitus), type 2, uncontrolled -accucheck achs -c/w Amaryl, add ISS Plan of Care discussed with : Patient, nurse DVT PPx: lovenox Dispo: home Mirta Ruiz M.D. [facility] Physician Mike Rose MD 03/22/2018 7:08 PM Signed Patient not seen yet. Cath films briefly reviewed. Has had plavix load and dose(s) preop w/u eval in progress. Anel Toro, TOMAS.WOODWORKING BENCH CARPENTER 03/23/2018 1:23 PM Signed CARDIOLOGY CONSULT PROGRESS NOTE CARDIOLOGY ATTENDING: Dr. Hendrix Date and Reason for initial consult: chest pain, NSTEMI INTERVAL HISTORY: Pt transferred her from [place] for consideration for CABG. Pt presented with symptoms of chest pain with radiation to bilateral shoulders, and anterior neck with mild SOB, prior to his presentation, he had symptoms that would resolve with rest. Cath with severer 3 vessel CAD, echo with normal lv function. 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 Pt here with plavix wash out, likely for OR early next week. PERTINENT ROS: Denies complaints of chest pain, palpitations, or SOB MEDICATIONS: Current hospital medications: aspirin 81 mg chewable tab(s) 81 mg ORAL DAILY (6 AM) mupirocin ointment (BACTROBAN) NASAL BID 0.9% NaCl 3-5 mL 3-5 mL INTRAVENOUS q 12 H glimepiride 4 mg tab(s) (AMARYL) 4 mg ORAL BID w MEALS atorvastatin 80 mg tab(s) (LIPITOR) 80 mg ORAL AT BEDTIME dextrose 40 % 15 g 15 g ORAL PRN glucagon 1 mg injection (GLUCAGEN) 1 mg INTRAMUSCULAR PRN dextrose 50% in water 25 mL syringe 12.5 g INTRAVENOUS PRN enoxaparin 105 mg injection (LOVENOX) 1 mg/kg/dose SUBCUTANEOUS q 12 HR nitroglycerin sublingual 0.4 mg tab(s) (NITROQUICK) 0.4 mg SUBLINGUAL PRN metoprolol tartrate (short acting) 25 mg tab(s) (LOPRESSOR) 25 mg ORAL q 12 H losartan 25 mg tab(s) (COZAAR) 25 mg ORAL DAILY insulin lispro pen (rapid acting) (HumaLOG KWIKPEN) SUBCUTANEOUS w MEALS AND HS PHYSICAL EXAM: Vital Signs 03/22/18 2056 03/23/18 0521 03/23/18 0800 03/23/18 1200 BP: 123/65 122/71 117/78 121/65 Pulse: 87 78 84 82 Resp: Temp: 37 ?C (98.6 ?F) 36.8 ?C (98.2 ?F) 36.4 ?C (97.5 ?F) 36.7 ?C (98.1 ?F) TempSrc: Oral Oral Temporal Artery Oral SpO2: 96% 98% 98% 98% Weight: Height: Temp (24hrs), Av.8 ?C (98.2 ?F), Min:36.4 ?C (97.5 ?F), Max:37 ?C (98.6 ?F) Intake/Output: Intake/Output Summary (Last 24 hours) at 03/23/18 1306 Last data filed at 03/23/18 0800 Gross per 24 hour Intake 360 ml Output 0 ml Net 360 ml Oxygen therapy: RA Admit Weight: 235lbs Gen: AANDO x 3 Neck: no jugular venous distention Cardiac: S1, S2+ RRR without murmur, gallop, or rubs. No ectopy. Resp: clear to auscultation bilaterally Abd: Soft, non-tender. Bowel sounds normal. No masses, organomegaly, hernias. Ext: no edema, moves all extremities with no apparent weakness Tele: normal sinus rhythm HR 70-80's Labs: No results found for this basename: CK:3,MB:3,MBP:3,CKMBP:3,TROPT:3 Recent Labs 03/22/18 1024 03/22/18 0507 WBC -- 6.81 HB -- 13.8 HCT -- 40.5 PLT -- 202 INR 1.06 -- Recent Labs 03/22/18 0507 NA 137 K 3.8 CHLOR 104 CO2 25 BUN 22* CREAT 0.93 GLUC 200* ALKPHOS 110 ALT 24 AST 8* Cholesterol, Total 119 06/10/2017 HDL Cholesterol 27 06/10/2017 LDL Chol, Brittny 31 06/10/2017 DATA: Echo 03/21/2018 EF 55 % 1+ mitral insufficiency triv TR RVSP = 25 mmHg Left Heart Catheterization, 03/21/18: EF 55% with hypokinetic anterior, apical, and inferior mulligan. LVEDP 33. 75% mid LAD, 85% pD1, 95% mOM1, 100% pOM1, 85% pRCA, 100% mRDA with collaterals to dRCA from L to R ASSESSMENT AND PLAN: 1. NSTEMI with 3 vessel CAD: currently pain free. Echo as above, normal Lv fx. Continue ASA, BB, losartan, and lovenox. CTS on consult, likely for OR early next week per pt, 2/2 plavix washout. SL NTG for chest pain prn, could add NTP as well if needed 2. Hypertension: stable on current regimen. 3. Hyperlipidemia: on atorvastatin 80 mg qhs. 4. DM: per primary team. 5. TEOFILO: compliant with CPAP. 6. Obesity Will sign off and follow peripherally, please call if assistance needed. Thank you SIGNATURE:Anel Toro APRN.WOODWORKING BENCH CARPENTER PAGER:[phone] DATE / TIME of SERVICE: March 23, 2018 1:06 PM This note is not final until Authenticated by responsible provider. 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 No Advance Directive: Current Advance Directive: None Laminating Press Operator Attempted to Assist with AD Completion: No Unable to Assist Due To:: Other: See Comment (Pt would like SW for AD ) Health Literacy: 1. How often do you need to have someone help you when you read instructions, pamphlets, or other written material from your doctor or pharmacy? Never - 1 2. How confident are you filling out medical forms by yourself? Extremely - 1 If Patient scores > 3 on either question, the following interventions were put into place: Patient did not score > 3 FUNCTIONAL AND COGNITIVE/BEHAVIORAL PRIOR TO ADMISSION: Baseline Mental Status: Alert AND Oriented, Person, Place , Time and Situation Functional Status: Independent Does Patient Currently Receive Any Community Services or Home Care? None Equipment Prior to Admission: Bi-level Positive Airway Pressure/Continuous Positive Airway Pressure Has the Patient Been in a Shelter Facility in the Past 30 days? 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 No Caregiver Needed Patient's transition needs and plan for meeting these needs: . Does the patient have an acute stroke diagnosis, or has the patient had a stroke during this admission? No Medication Adherence: I am convinced of the importance of my prescription medication: Agree mostly - 0 I worry that my prescription medication will do more harm than good to me Disagree mostly - 0 I feel financially burdened by my [id number] expenses for my prescription medication: Disagree mostly -0 Patient is categorized as low risk < 2 Are you interested in bedside delivery of your medications? Yes Food Concerns: In the Last Month, Have You had Trouble Getting Food? No trouble getting food During the Last Month, Have You Worried Whether Your Food Would Run Out Before You Had Enough Money to Buy More? No Is the Patient Psychosocially Complex? No ASSESSMENT AND PLAN: Medical Needs: None Psychosocial Needs: None FREEDOM OF CHOICE EXPLAINED: N/A POTENTIAL TRANSITION PLANS To Be Determined Spoke with pt at the bedside. 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 Plan possible CABG next week - await surgery schedule. Anticipate home with hhc post op- VNS requested. Pt is to establish a new PCP in [facility]. Will follow. SIGNATURE: Prabha Velasquez RN PATIENT NAME: Carlos Buckner DATE: March 23, 2018 TIME: 4:04 PM PAGER/CONTACT #: [phone] Angel Garcia MD 03/23/2018 4:40 PM Signed [facility] MEDICINE PROGRESS NOTE SERVICE DATE: 03/23/2018 SERVICE TIME: 4:34 PM Hospital Medicine/Primary Attending: Angel Garcia MD NIGHT AND WEEKEND COVERAGE: From 7am - 7pm, please call [phone] After 7pm, please call cross cover pager #[phone] Subjective INTERVAL HPI: 57yo M whom I am seeing for the first time today taking over the case. Patient admitted from [facility] where he was found to have NSTEMI and multiple coronary arteries with significant blockages on cardiac catheterization therefore here to get CABG. Today patient in no distress stating he has no chest pain, no dyspnea, no abdominal pain, no nausea, no vomiting, no fever/chills, and understands why he needs a CABG. VSS MEDICATIONS: Reviewed Objective PHYSICAL EXAM: BP 121/65 Pulse 82 Temp (Src) 98.1 (Oral) Resp 18 Ht 5' 8 (1.73m) Wt 235 lb 3.2 oz (106.7kg) SpO2 98% BMI 35.77 kg/(m2). Physical Exam Performed GENERAL: Alert, no distress, cooperative SKIN: Skin color, texture, turgor normal. No rashes or lesions. OROPHARYNX: Lips, mucosa, and tongue normal. Teeth and gums normal. Oropharynx normal. LUNGS: Lungs clear to auscultation, Good diaphragmatic excursion, no wheezing, no crackles CARDIAC: Normal S1 and S2; no rubs, murmurs, or gallops, RRR ABDOMEN: Abdomen soft, non-tender, BS normal, No masses or organomegaly EXTREMITIES: Extremities normal, no deformities, edema, clubbing or skin discoloration. Good capillary refill., No ulcers NEURO: Gait normal. Reflexes normal and symmetric. Sensation grossly intact, Cranial nerves II-XII intact PULSES: 2+ radial, 2+ carotid Lines, Drains, and Airways Line Peripheral Assessment Short Left Forearm 20 Gauge -- days Reviewed lines, drains, AND airways. Need to be continued . DATA: Diagnostic tests reviewed for today's visit: Most recent labs and imaging results. Assessment/Plan 1) Acute Coronary Syndrome with NSTEMI and multivessel blockages that are significant indicated above. - Cardiothoracic consulted awaiting on CABG planning - Cardiology on board - Continue ASA 81mg daily - Continue Atorvastatin 80mg daily - Continue Lovenox 105mg BID - Continue Metoprolol 25mg BID 2) Type II DM: - Stopped Glimipiride ( I do not like using PO antidiabetic medications as an inpatient basis and this is not a good one to be on with high hypoglycemic risk consider stopping this at time of discharge) - Insulin sliding scale - Glucometer checks 3x/day 3) TEOFILO - Continue CPAP at night 4) HTN: - Continue Metoprolol 25mg BID - Continue Losartan 25mg daily 5) HLD - Continue Atorvastatin 80mg daily Medication and Non-Pharmacologic VTE Prophylaxis/Anticoagulants Anticoagulant AND Antiplatelet Medications Start Dose Route Frequency Ordered Stop 03/23/18 0600 aspirin 81 mg chewable tab(s) 81 mg ORAL DAILY AT 6 AM 03/22/18 0956 -- 03/21/18 2300 enoxaparin 105 mg injection (LOVENOX) 1 mg/kg/dose SUBCUTANEOUS EVERY 12 HOURS 03/21/18 2258 -- 03/21/18 2245 vte non-pharmacologic prophylaxis - none indicated ([place]) 03/21/182144 vte current anticoag therapy ([place]) 03/21/182144 pneumatic compression stockings ([place], [place]) VTE Prophylaxis: VTE prophylaxis appropriate Disposition: Inpatient Plan of care discussed with: Patient SIGNATURE: Angel Garcia MD PATIENT NAME: Carlos Buckner DATE: March 23, 2018 TIME: 4:34 PM PAGER/CONTACT #: [id number] etx [id number] Angel Garcia MD 03/24/2018 12:04 PM Signed DEPARTMENT OF HOSPITAL MEDICINE PROGRESS NOTE SERVICE DATE: 03/24/2018 SERVICE TIME: 12:00 PM Hospital Medicine/Primary Attending: Angel Garcia MD NIGHT AND WEEKEND COVERAGE: From 7am - 7pm, please call [phone] After 7pm, please call cross cover pager #[phone] Subjective INTERVAL HPI: 57yo M whom I am seeing for the first time today taking over the case. Patient admitted from [facility] where he was found to have NSTEMI and multiple coronary arteries with significant blockages on cardiac catheterization therefore here to get CABG. Today patient in no distress stating he has no chest pain, no dyspnea, no abdominal pain, no nausea, no vomiting, no fever/chills, and understands why he needs a CABG. VSS MEDICATIONS: Reviewed Objective PHYSICAL EXAM: BP 108/61 Pulse 73 Temp (Src) 97.7 (Oral) Resp 16 Ht 5' 8 (1.73m) Wt 235 lb 3.2 oz (106.7kg) SpO2 100% BMI 35.77 kg/(m2). Physical Exam Performed GENERAL: Alert, no distress, cooperative SKIN: Skin color, texture, turgor normal. No rashes or lesions. OROPHARYNX: Lips, mucosa, and tongue normal. Teeth and gums normal. Oropharynx normal. LUNGS: Lungs clear to auscultation, Good diaphragmatic excursion, no wheezing, no crackles CARDIAC: Normal S1 and S2; no rubs, murmurs, or gallops, RRR ABDOMEN: Abdomen soft, non-tender, BS normal, No masses or organomegaly EXTREMITIES: Extremities normal, no deformities, edema, clubbing or skin discoloration. Good capillary refill., No ulcers NEURO: Gait normal. Reflexes normal and symmetric. Sensation grossly intact, Cranial nerves II-XII intact PULSES: 2+ radial, 2+ carotid Lines, Drains, and Airways Line Peripheral Assessment Short Left Forearm 20 Gauge -- days Reviewed lines, drains, AND airways. Need to be continued . DATA: Diagnostic tests reviewed for today's visit: Most recent labs and imaging results. Assessment/Plan 1) Acute Coronary Syndrome with NSTEMI and multivessel blockages that are significant indicated above. - Cardiothoracic consulted awaiting on CABG planning - Cardiology on board - Continue ASA 81mg daily - Continue Atorvastatin 80mg daily - Continue Lovenox 105mg BID - Continue Metoprolol 25mg BID 2) Type II DM: - Stopped Glimipiride ( I do not like using PO antidiabetic medications as an inpatient basis and this is not a good one to be on with high hypoglycemic risk consider stopping this at time of discharge) - Insulin sliding scale - Glucometer checks 3x/day 3) TEOFILO - Continue CPAP at night 4) HTN: - Continue Metoprolol 25mg BID - Continue Losartan 25mg daily 5) HLD - Continue Atorvastatin 80mg daily Medication and Non-Pharmacologic VTE Prophylaxis/Anticoagulants Anticoagulant AND Antiplatelet Medications Start Dose Route Frequency Ordered Stop 03/23/18 0600 aspirin 81 mg chewable tab(s) 81 mg ORAL DAILY AT 6 AM 03/22/18 0956 -- 03/21/18 2300 enoxaparin 105 mg injection (LOVENOX) 1 mg/kg/dose SUBCUTANEOUS EVERY 12 HOURS 03/21/18 2258 -- 03/21/18 224 vte non-pharmacologic prophylaxis - none indicated (in,[place]) 03/21/182144 vte current anticoag therapy ([place]) 03/21/182144 pneumatic compression stockings ([place], [place]) VTE Prophylaxis: VTE prophylaxis appropriate Disposition: Inpatient Plan of care discussed with: Patient SIGNATURE: Angel Garcia MD PATIENT NAME: Carlos Buckner DATE: March 24, 2018 TIME: 12:00 PM PAGER/CONTACT #: [id number] Mike Rose MD 03/24/2018 12:18 PM Signed Patient seen along with in hospital room. Surgical Discussion: I have discussed the benefits, risks, indications, and alternatives to surgery with the patient. Risks discussed include but are not limited to infection, bleeding, cardiac dysrhythmias, myocardial infarction, stroke, , blood clots, pneumonia, wound complications, wound infection, blood transfusion with associated risks of AIDS or Hepatitis, and the occasional need for reoperation for bleeding or other complications. Expected OR, ICU, hospitalization, and home recovery times were discussed. OR tentatively for Wednesday given age and Plavix loading in [place] to try and avoid transfusions. They state they understand, have no further questions , and wish to proceed as proposed. Ifeoma Cadena MD 03/24/2018 2:45 PM Signed DIABETES INITIAL CONSULT PATIENT NAME: Carlos Buckner SERVICE DATE: 03/24/2018 SERVICE TIME: 12:45pm REASON FOR CONSULT: DM Type 2 REQUESTING PHYSICIAN:No referring provider defined for this encounter. PRIMARY CARE PHYSICIAN: Rick Camacho MD Subjective HISTORY OF PRESENT ILLNESS: Mr. Buckner is a 57 year old male presenting as a new patient to me regarding DM Type 2. He was initially diagnosed with diabetes 14 years ago. He does have a family history of diabetes mellitus in his Grandparents. The patient has no known microvascular complications of diabetes. Carlos reports the following diabetic macrovascular complications: CAD awaiting CABG. 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 His current diabetes regimen is metformin, jardiance and glimepiride. Regarding symptoms of hyperglycemia, he is not experiencing any symptoms such as polyuria, polydipsia, nocturia or rapid weight loss or blurry vision. 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 On Wednesday, he woke up in pain rated 4-7/10, pressure-like pain that won't resolve like before, so he brought himself to ED. He had initially negative troponin, his EKG at the time showed: sinus tachycardia with no acute EKG changes. He was then treated with ASA and nitro with improvement in symptoms but his troponin subsequent positive post medical therapy of ASA and Nitro, which peaked at 2.14. He underwent Heart cath and found 3 vessel disease then was loaded with Plavix and transferred to [facility] for CABG evaluation. Patient denied hx of CHF, Arrhythmia, CVA, COPD or leg edema. Was evaluated and recommended CABG tentatively on Wednesday 03/28. PAST MEDICAL HISTORY Diagnosis Date - HLD (hyperlipidemia) - HTN (hypertension) 06/10/2017 - Obstructive sleep apnea - Type II or unspecified type diabetes mellitus without mention of complication, not stated as uncontrolled PAST SURGICAL HISTORY Procedure Laterality Date - COLONOSCOP W/ OR W/O [facility] SPEC 01/17/15 Colonoscopy - KIDNEY SURGERY HX - LITHOTRIPSY PROC UNILATERAL 2006 left side done in [place] - PAST SURGICAL HISTORY OF dog bite age 5 - PAST SURGICAL HISTORY OF chainsaw injury FAMILY HISTORY Problem Relation Age of Onset - other (polio) Mother - Emphysema Father - Diabetes Maternal Grandfather - COPD Paternal Grandmother - COPD Paternal Grandfather Social History Substance Use Topics - Smoking status: Never Smoker - Smokeless tobacco: Never Used - Alcohol use No CURRENT MEDICATION: Current Facility-Administered Medications: insulin detemir U-100 30 Units injection (long acting) (LEVEMIR) 30 Units SUBCUTANEOUS DAILY (8 AM) Ifeoma Ciltea insulin lispro 8 Units pen (rapid acting) (HumaLOG KWIKPEN) 8 Units SUBCUTANEOUS w MEALS Ifeoma [place]tea insulin lispro pen (rapid acting) (HumaLOG KWIKPEN) SUBCUTANEOUS w MEALS Ifeoma [place]iltea aspirin 81 mg chewable tab(s) 81 mg ORAL DAILY (6 AM) Alex (Digital Media Producer) APRN. PratimaWOODWORKING BENCH CARPENTER 81 mg at 03/24/18 0617 mupirocin ointment (BACTROBAN) NASAL BID Alex (Digital Media Producer) APRN. PratimaWOODWORKING BENCH CARPENTER 0.9% NaCl 3-5 mL 3-5 mL INTRAVENOUS q 12 H Eliazar Lutz 5 mL at 03/24/18 0850 atorvastatin 80 mg tab(s) (LIPITOR) 80 mg ORAL AT BEDTIME Veronica Tetyuk 80 mg at 03/23/18 2210 dextrose 40 % 15 g 15 g ORAL PRN Veronica Tetyuk Or glucagon 1 mg injection (GLUCAGEN) 1 mg INTRAMUSCULAR PRN Veronica Tetyuk Or dextrose 50% in water 25 mL syringe 12.5 g INTRAVENOUS PRN Veronica Tetyuk enoxaparin 105 mg injection (LOVENOX) 1 mg/kg/dose SUBCUTANEOUS q 12 HR Veronica Tetyuk 105 mg at 03/24/18 0851 nitroglycerin sublingual 0.4 mg tab(s) (NITROQUICK) 0.4 mg SUBLINGUAL PRN Veronica Tetyuk metoprolol tartrate (short acting) 25 mg tab(s) (LOPRESSOR) 25 mg ORAL q 12 H Veronica Tetyuk 25 mg at 03/24/18 0851 losartan 25 mg tab(s) (COZAAR) 25 mg ORAL DAILY Veronica Tetyuk 25 mg at 03/24/18 0851 Allergies As of Date: 03/21/2018 Allergen Noted Reaction OYSTERS 06/30/2014 Rash and Itching Fully Assessed 03/21/2018 General: no fever, chills or acute changes in weight in the last 6 months Skin: no rashes, pruritis or dry skin Eyes: no blurred or double vision or eye pain Cardiac: as per HPI Pulmonary: as per HPI GI: denies nausea, vomiting, diarrhea or constipation Neuro: denies numbnes/tingling in hands or feet and denies seizures Musc: denies history of upper or lower extremity weakness Endocrine: denies polyuria, polydipsia, nocturia, blurry vision or excessive fatigue Hematology: Negative for anemia, easy bleeding and bruising. Objective PHYSICAL EXAM: BP 108/61 Pulse 73 Temp 36.5 ?C (97.7 ?F) (Oral) Resp 16 Ht 172.7 cm (5' 8) Wt 106.7 kg (235 lb 3.2 oz) SpO2 100% BMI 35.76 kg/m2 General: Well appearing, alert, in no acute distress, well- hydrated, well nourished. and Obese Skin: skin color, texture, turgor normal, no rashes or lesions. Head: normocephalic, no masses, lesions, tenderness or abnormalities. Eyes: SUSAN,EOMI Oropharynx: moist Neck: Supple, no adenopathy; thyroid symmetric, normal size, no bruits Heart: RRR without murmur, gallop, or rubs. No ectopy Abdomen: soft, non-tender, positive bowel sounds Extremities: no edema, no calluses or ulcers present. Peripheral Pulses: posterior tibial and doralis pedis pulses 2+ and symmetrical DATA: Diagnostic tests reviewed for today's visit: Most recent labs and imaging results. Impression/Recommendations DM (diabetes mellitus), type 2, uncontrolled; HbA1c 8.2 on oral antihyperglycemics at home; now with complications; CAD (coronary artery disease)severe. ACS (acute coronary syndrome) scheduled for revascularization Hyperlipemia POA: Yes Assessment AND Plan: per 1 service TEOFILO (obstructive sleep apnea) POA: Yes Assessment AND Plan: per 1 service. Recommendations: discontinue oral antihyperglycemics and start insulin Levemir 30 units daily, humalog 8 units qac tid plus correction; will initiate iv insulin prior to OR for CABG; will keep BS under tight control; will make recommendations and home going instructions; diabetes edu and nutrition to evaluate this patient during this hospitalization; most likely he will need insulin at home. Goal HbA1c 6-7 (without any hypoglycemia). SIGNATURE: Ifeoma Cadena MD DATE: March 24, 2018 TIME: 2:33 PM Jazlyn Galicia APRN.WOODWORKING BENCH CARPENTER 03/24/2018 5:06 PM Signed PATIENT EDUCATION TOPIC: PROCEDURE / SURGERY: Procedure/Surgery: CABG PATIENT NAME: Carlos REYNAN: [id number] PATIENT LOCATION: [place] [address]/[place] [id number] READINESS TO LEARN COGNITIVE ABILITY: Alert and oriented MOTIVATION TO LEARN: Eager Interested FAMILY SUPPORT: High - Very involved in pt care INSTRUCTION PROVIDED TO: Patient and family member PATIENT LEARNS BEST BY: Individual Instruction Written Instruction - Hand-outs FACTORS AFFECTING LEARNING: None PHYSICAL LIMITATIONS AFFECTING LEARNING: None LEARNING RESPONSE DIAGNOSIS: ADULT: Coronary Artery Disease PATIENT/FAMILY RESPONSE: Verbalizes understanding of: PRE-OPERATIVE INSTRUCTIONS-Correct action to take to follow pre-operative instructions Information received as demonstrated by interest and questions METHOD OF INSTRUCTION: Individual instruction Written instruction - handouts FOLLOW-UP PLAN: Complete - No need for follow-up INSTRUCTIONAL AIDS USED: Guide to Health and Recovery Binder Cardiac Surgery SUPPLEMENTAL MATERIAL PROVIDED TO PATIENT: None REFERRAL (RECOMMENDATION): None Electronically Signed By: Jazlyn Galicia APRN.JUAN Cadena MD 03/26/2018 8:23 AM Signed ENDOCRINOLOGY CONSULT PROGRESS NOTE SERVICE DATE: 03/26/2018 SERVICE TIME: 8:1-am Subjective INTERVAL HPI: pt seen for diabetes mellitus; no, complaints today, taking po, BS's 200's on Levemir 30 units qam and prandial humalog 8 units qac tid plus correction; DIET CARBOHYDRATE CONTROLLED Current hospital medications: insulin detemir U-100 30 Units injection (long acting) (LEVEMIR) 30 Units SUBCUTANEOUS DAILY (8 AM) insulin lispro 8 Units pen (rapid acting) (HumaLOG KWIKPEN) 8 Units SUBCUTANEOUS w MEALS insulin lispro pen (rapid acting) (HumaLOG KWIKPEN) SUBCUTANEOUS w MEALS aspirin 81 mg chewable tab(s) 81 mg ORAL DAILY (6 AM) mupirocin ointment (BACTROBAN) NASAL BID 0.9% NaCl 3-5 mL 3-5 mL INTRAVENOUS q 12 H atorvastatin 80 mg tab(s) (LIPITOR) 80 mg ORAL AT BEDTIME dextrose 40 % 15 g 15 g ORAL PRN glucagon 1 mg injection (GLUCAGEN) 1 mg INTRAMUSCULAR PRN dextrose 50% in water 25 mL syringe 12.5 g INTRAVENOUS PRN enoxaparin 105 mg injection (LOVENOX) 1 mg/kg/dose SUBCUTANEOUS q 12 HR nitroglycerin sublingual 0.4 mg tab(s) (NITROQUICK) 0.4 mg SUBLINGUAL PRN metoprolol tartrate (short acting) 25 mg tab(s) (LOPRESSOR) 25 mg ORAL q 12 H losartan 25 mg tab(s) (COZAAR) 25 mg ORAL DAILY Objective PHYSICAL EXAM: BP 110/80 Pulse 65 Temp (Src) 97 (Temporal Artery) Resp 18 Ht 5' 8 (1.73m) Wt 235 lb 3.2 oz (106.7kg) SpO2 98% BMI 35.77 kg/(m2). General: Well appearing, alert, in no acute distress, well- hydrated, well nourished. and Obese Skin: skin color, texture, turgor normal, no rashes or lesions. Head: normocephalic, no masses, lesions, tenderness or abnormalities. Eyes: SUSAN,EOMI Oropharynx: moist Neck: Supple, no adenopathy; thyroid symmetric, normal size, no bruits Heart: RRR without murmur, gallop, or rubs. No ectopy Abdomen: soft, non-tender, positive bowel sounds Extremities: no edema, no calluses or ulcers present. Peripheral Pulses: posterior tibial and doralis pedis pulses 2+ and symmetrical ? DATA: Diagnostic tests reviewed for today's visit: Most recent labs and imaging results. Assessment/Plan DM (diabetes mellitus), type 2, uncontrolled; HbA1c 8.2 on oral antihyperglycemics at home; now with complications; ? CAD (coronary artery disease)severe. ? ACS (acute coronary syndrome) scheduled for revascularization ? Hyperlipemia POA: Yes Assessment AND Plan: per 1 service ? TEOFILO (obstructive sleep apnea) POA: Yes Assessment AND Plan: per 1 service. ? Recommendations: discontinued oral antihyperglycemics and continue rx insulin Levemir 30 units daily, humalog 8 units qac tid plus correction; will initiate iv insulin prior to OR for CABG; will keep BS under tight control; will make recommendations SIGNATURE: Ifeoma Cadena MD PATIENT NAME: Carlos Buckner DATE: March 25, 2018 PAGER: [phone] Prabha Velasquez, RN, RN 03/25/2018 9:19 AM Signed CARE MANAGEMENT PROGRESS NOTE SERVICE DATE: 03/25/2018 SERVICE TIME: 9:18 AM LOS: 4 days Chart reviewed. Plan OR for CABG Wednesday. [facility] able to accept and following. CM to follow. SIGNATURE: Prabha Velasquez RN PATIENT NAME: Carlos Buckner DATE: March 25, 2018 TIME: 9:18 AM PAGER/CONTACT #: [phone] Adilene Wallace RN, RN 03/25/2018 11:06 AM Signed DIABETES EDUCATION PROGRESS NOTE SERVICE DATE: 03/25/2018 SERVICE TIME: 1045 RECOMMENDATIONS: Patient needs to follow-up with primary care physician after discharge. Prescriptions for diabetic supplies -insulin pens and pen needles. Patient has done injections with Victoza in past. He is willing to make changes for his health. PATIENT HISTORY/ASSESSMENT: Previously diagnosed: Type 2 Treatment prior to hospitalization: Oral Agent(s): and Blood Gucose Testing Has meter: Frequency of self-blood glucose monitorin times per day. Usual blood glucose results at home: variable. TOPIC(S): Survival Skills: Basic diabetes mellitus disease process Medication therapy: Oral agent(s) - Metformin (Glucophage) Injectables - Insulin lispro (Humalog) and Insulin detemir (Levemir) Injectable instructions - Storage, Selection/rotation, Injection technique, Injection site and Disposal of sharps Acute complications: Hypoglycemia and Hyperglycemia Blood glucose monitoring: Timing techniques, Logging results Blood glucose targets: Type I/Type II: Pre-meal 70-130 mg/dl, Bedtime glucose 100-140 mg/dl Patient Education/Health Promotion: Complication prevention, Diet, Exercise and Self management and follow up Diabetes Management: Hemaglobin A1C and when to call the doctor EDUCATION: Cognitive ability: Alert and Oriented. Motivation to learn: Interested. Barriers to learning: None Family support: Unable to assess - Family not present Education Type: Individual instruction Written instruction - handouts Verbal instruction Demonstration-Hands on Learning Response to education: States/Identifies and Return Demonstration. Education provided to: Patient. Teachback method used. Time Spent (Minutes): 30 SIGNATURE: Adilene Wallace RN PATIENT NAME: Carlos Buckner DATE: March 25, 2018 TIME: 11:02 AM PAGER: [phone] Angel Garcia MD 03/25/2018 4:10 PM Signed DEPARTMENT OF HOSPITAL MEDICINE PROGRESS NOTE SERVICE DATE: 03/25/2018 SERVICE TIME: 1:00 PM Hospital Medicine/Primary Attending: Angel Garcia MD NIGHT AND WEEKEND COVERAGE: From 7am - 7pm, please call [phone] After 7pm, please call cross cover pager [phone] Subjective INTERVAL HPI: 57yo M whom I am seeing for the first time today taking over the case. Patient admitted from [facility] where he was found to have NSTEMI and multiple coronary arteries with significant blockages on cardiac catheterization therefore here to get CABG. Today patient in no distress stating he has no chest pain, no dyspnea, no abdominal pain, no nausea, no vomiting, no fever/chills, and understands why he needs a CABG. VSS MEDICATIONS: Reviewed Objective PHYSICAL EXAM: BP 110/75 Pulse 83 Temp (Src) 98.2 (Oral) Resp 18 Ht 5' 8 (1.73m) Wt 235 lb 3.2 oz (106.7kg) SpO2 95% BMI 35.77 kg/(m2). Physical Exam Performed GENERAL: Alert, no distress, cooperative SKIN: Skin color, texture, turgor normal. No rashes or lesions. OROPHARYNX: Lips, mucosa, and tongue normal. Teeth and gums normal. Oropharynx normal. LUNGS: Lungs clear to auscultation, Good diaphragmatic excursion, no wheezing, no crackles CARDIAC: Normal S1 and S2; no rubs, murmurs, or gallops, RRR ABDOMEN: Abdomen soft, non-tender, BS normal, No masses or organomegaly EXTREMITIES: Extremities normal, no deformities, edema, clubbing or skin discoloration. Good capillary refill., No ulcers NEURO: Gait normal. Reflexes normal and symmetric. Sensation grossly intact, Cranial nerves II-XII intact PULSES: 2+ radial, 2+ carotid Lines, Drains, and Airways Line Peripheral Assessment Short Left Forearm 20 Gauge -- days Reviewed lines, drains, AND airways. Need to be continued . DATA: Diagnostic tests reviewed for today's visit: Most recent labs and imaging results. Assessment/Plan 1) Acute Coronary Syndrome with NSTEMI and multivessel blockages that are significant indicated above. - CABG scheduled for Wednesday Morning - Cardiology on board - Continue ASA 81mg daily - Continue Atorvastatin 80mg daily - Continue Lovenox 105mg BID - Continue Metoprolol 25mg BID 2) Type II DM: - Stopped Glimipiride ( I do not like using PO antidiabetic medications as an inpatient basis and this is not a good one to be on with high hypoglycemic risk consider stopping this at time of discharge) - Insulin sliding scale - Glucometer checks 3x/day 3) TEOFILO - Continue CPAP at night 4) HTN: - Continue Metoprolol 25mg BID - Continue Losartan 25mg daily 5) HLD - Continue Atorvastatin 80mg daily Medication and Non-Pharmacologic VTE Prophylaxis/Anticoagulants Anticoagulant AND Antiplatelet Medications Start Dose Route Frequency Ordered Stop 03/23/18 0600 aspirin 81 mg chewable tab(s) 81 mg ORAL DAILY AT 6 AM 03/22/18 0956 -- 03/21/18 2300 enoxaparin 105 mg injection (LOVENOX) 1 mg/kg/dose SUBCUTANEOUS EVERY 12 HOURS 03/21/18 225 -- 03/21/18 224 vte non-pharmacologic prophylaxis - none indicated ([place]) 03/21/182144 vte current anticoag therapy ([place], [place]) 03/21/182144 pneumatic compression stockings ([place]) VTE Prophylaxis: VTE prophylaxis appropriate Disposition: Inpatient Plan of care discussed with: Patient SIGNATURE: Angel Garcia MD PATIENT NAME: Carlos Buckner DATE: March 25, 2018 TIME: 1:00 PM PAGER/CONTACT #: [phone] etx [phone] ELDA Jeong 03/25/2018 4:31 PM Signed CARE MANAGEMENT PROGRESS NOTE SERVICE DATE: 03/25/2018 SERVICE TIME: 4:31 PM LOS: 4 days Advanced Directives Met with pt in room; educated pt on HCPOA and Living Will. Completed documents with pt stating understanding of use and purpose of Advance Directives and when to enact them. Copies made; provided for pt and sent to Admitting to be added to pt Med Record. SIGNATURE: ELDA Jeong PATIENT NAME: Carlos Buckner DATE: March 25, 2018 TIME: 4:30 PM PAGER/CONTACT #: Mike Rose MD 03/25/2018 5:48 PM Signed Patient seen. Left handed individual. Deng's test RIGHT hand shows adequate reperfusion via R ulnar artery. Discussed benefits and risks associated with radial artery usage for conduit in his case. He is thinking he is agreeable to that today. DOWNTIME NOTE 03/26/2018 2:04 AM Signed Epic Scheduled Downtime: 03/26/2018 12:00:01 AM to 03/26/2018 1:54:00 AM Shazia Brown MD 03/26/2018 9:34 AM Signed ENDOCRINOLOGY CONSULT PROGRESS NOTE SERVICE DATE: 03/26/2018 SERVICE TIME: 9:20 AM Subjective INTERVAL HPI: pt seen for diabetes mellitus; no complaints today, taking po well, BS's 200's on Levemir 30 units qam and prandial humalog 8 units qac tid plus correction; No CP; no SOB, no nausea. DIET CARBOHYDRATE CONTROLLED Current hospital medications: insulin detemir U-100 30 Units injection (long acting) (LEVEMIR) 30 Units SUBCUTANEOUS DAILY (8 AM) insulin lispro 8 Units pen (rapid acting) (HumaLOG KWIKPEN) 8 Units SUBCUTANEOUS w MEALS insulin lispro pen (rapid acting) (HumaLOG KWIKPEN) SUBCUTANEOUS w MEALS aspirin 81 mg chewable tab(s) 81 mg ORAL DAILY (6 AM) mupirocin ointment (BACTROBAN) NASAL BID 0.9% NaCl 3-5 mL 3-5 mL INTRAVENOUS q 12 H atorvastatin 80 mg tab(s) (LIPITOR) 80 mg ORAL AT BEDTIME dextrose 40 % 15 g 15 g ORAL PRN glucagon 1 mg injection (GLUCAGEN) 1 mg INTRAMUSCULAR PRN dextrose 50% in water 25 mL syringe 12.5 g INTRAVENOUS PRN enoxaparin 105 mg injection (LOVENOX) 1 mg/kg/dose SUBCUTANEOUS q 12 HR nitroglycerin sublingual 0.4 mg tab(s) (NITROQUICK) 0.4 mg SUBLINGUAL PRN metoprolol tartrate (short acting) 25 mg tab(s) (LOPRESSOR) 25 mg ORAL q 12 H losartan 25 mg tab(s) (COZAAR) 25 mg ORAL DAILY Objective PHYSICAL EXAM: BP 110/80 Pulse 65 Temp (Src) 97 (Temporal Artery) Resp 18 Ht 5' 8 (1.73m) Wt 235 lb 3.2 oz (106.7kg) SpO2 98% BMI 35.77 kg/(m2). General: Well appearing, alert, in no acute distress, well- hydrated, well nourished. and Obese Skin: skin color, texture, turgor normal, no rashes or lesions. Head: normocephalic, no masses, lesions, tenderness or abnormalities. Eyes: SUSAN,EOMI Oropharynx: moist Neck: Supple, no adenopathy; thyroid symmetric, normal size, no bruits Heart: RRR without murmur, gallop, or rubs. No ectopy Abdomen: soft, non-tender, positive bowel sounds Extremities: no edema, no calluses or ulcers present. Peripheral Pulses: posterior tibial and doralis pedis pulses 2+ and symmetrical ? DATA: Diagnostic tests reviewed for today's visit: Most recent labs and imaging results. Assessment/Plan DM (diabetes mellitus), type 2, uncontrolled; HbA1c 8.2; on oral antihyperglycemics (Metformin/Amaryl/Jardiance) at home; now with complications; ? CAD (coronary artery disease) severe. ?ACS (acute coronary syndrome) scheduled for revascularization on 03/28 ? Hyperlipemia POA: Yes Assessment AND Plan: per 1 service ? TEOFILO (obstructive sleep apnea) POA: Yes Assessment AND Plan: per 1 service. ? Recommendations: discontinued oral antihyperglycemics; started on prog insulin Levemir 30 units daily AM and humalog 8 units qac tid plus correction. BS >150's, will increase Humalog to 10 units tid. Will initiate iv insulin prior to OR for CABG on 03/28; will keep BS under tight control; will follow. SIGNATURE: Shazia Brown MD PATIENT NAME: Carlos Buckner DATE: March 26, 2018 TIME: 9:34 AM PAGER: [phone] Angel Garcia MD 03/26/2018 9:46 AM Signed DEPARTMENT OF HOSPITAL MEDICINE PROGRESS NOTE SERVICE DATE: 03/26/2018 SERVICE TIME: 9:00 AM Hospital Medicine/Primary Attending: Angel Garcia MD NIGHT AND WEEKEND COVERAGE: From 7am - 7pm, please call [phone] After 7pm, please call cross cover pager #[phone] Subjective INTERVAL HPI: 57yo M whom I am seeing for the first time today taking over the case. Patient admitted from [facility] where he was found to have NSTEMI and multiple coronary arteries with significant blockages on cardiac catheterization therefore here to get CABG. Today patient in no distress stating he has no chest pain, no dyspnea, no abdominal pain, no nausea, no vomiting, no fever/chills, and understands why he needs a CABG. VSS MEDICATIONS: Reviewed Objective PHYSICAL EXAM: BP 110/80 Pulse 65 Temp (Src) 97 (Temporal Artery) Resp 18 Ht 5' 8 (1.73m) Wt 235 lb 3.2 oz (106.7kg) SpO2 98% BMI 35.77 kg/(m2). Physical Exam Performed GENERAL: Alert, no distress, cooperative SKIN: Skin color, texture, turgor normal. No rashes or lesions. OROPHARYNX: Lips, mucosa, and tongue normal. Teeth and gums normal. Oropharynx normal. LUNGS: Lungs clear to auscultation, Good diaphragmatic excursion, no wheezing, no crackles CARDIAC: Normal S1 and S2; no rubs, murmurs, or gallops, RRR ABDOMEN: Abdomen soft, non-tender, BS normal, No masses or organomegaly EXTREMITIES: Extremities normal, no deformities, edema, clubbing or skin discoloration. Good capillary refill., No ulcers NEURO: Gait normal. Reflexes normal and symmetric. Sensation grossly intact, Cranial nerves II-XII intact PULSES: 2+ radial, 2+ carotid Lines, Drains, and Airways Line Peripheral Assessment Short Left Forearm 20 Gauge -- days Reviewed lines, drains, AND airways. Need to be continued . DATA: Diagnostic tests reviewed for today's visit: Most recent labs and imaging results. Assessment/Plan 1) Acute Coronary Syndrome with NSTEMI and multivessel blockages that are significant indicated above. - CABG scheduled for Wednesday Morning - Cardiology on board - Continue ASA 81mg daily - Continue Atorvastatin 80mg daily - Continue Lovenox 105mg BID - Continue Metoprolol 25mg BID 2) Type II DM: - Stopped Glimipiride ( I do not like using PO antidiabetic medications as an inpatient basis and this is not a good one to be on with high hypoglycemic risk consider stopping this at time of discharge) - Insulin sliding scale - Glucometer checks 3x/day 3) TEOFILO - Continue CPAP at night 4) HTN: - Continue Metoprolol 25mg BID - Continue Losartan 25mg daily 5) HLD - Continue Atorvastatin 80mg daily Medication and Non-Pharmacologic VTE Prophylaxis/Anticoagulants Anticoagulant AND Antiplatelet Medications Start Dose Route Frequency Ordered Stop 03/23/18 0600 aspirin 81 mg chewable tab(s) 81 mg ORAL DAILY AT 6 AM 03/22/18 0956 -- 03/21/18 2300 enoxaparin 105 mg injection (LOVENOX) 1 mg/kg/dose SUBCUTANEOUS EVERY 12 HOURS 03/21/18 5348 -- 03/21/182244 vte non-pharmacologic prophylaxis - none indicated ([place]) 03/21/182144 vte [place] antico[place] 03/21/182144 pneumatic compression stockings ([place]) VTE Prophylaxis: VTE prophylaxis appropriate Disposition: Inpatient Plan of care discussed with: Patient SIGNATURE: Angel Garcia MD PATIENT NAME: Carlos Buckner DATE: March 26, 2018 TIME: 9:00 AM PAGER/CONTACT #: [phone] etx [phone] Shazia Brown MD 03/27/2018 8:08 AM Signed ENDOCRINOLOGY CONSULT PROGRESS NOTE SERVICE DATE: 03/27/2018 SERVICE TIME: 7:55 AM Subjective INTERVAL HPI: pt seen for diabetes mellitus; no complaints today, taking po well, BS's 200's on Levemir 30 units qam and prandial humalog 8 units qac tid plus correction; for CABG on 03/28. No CP; no SOB, no nausea. Walked in room and hallway. DIET CARBOHYDRATE CONTROLLED Current hospital medications: [START ON 03/28/2018] heparin 3,000 Units in NaCl 0.9% 500 mL irrigation 3,000 Units IRRIGATION ONE TIME [START ON 03/28/2018] PHENYLephrine 20 mg in NaCl 0.9% 250 mL (NEOSYNEPHRINE) 25-300 mcg/min INTRAVENOUS ONE TIME [START ON 03/28/2018] aminocaproic acid 10 g in NaCl 0.9% 250 mL (AMicAR) 1 g/hr INTRAVENOUS ONE TIME [START ON 03/28/2018] dexmedetomidine 400 mcg in NaCl 0.9% 100 mL (PRECEDEX) 0.2-0.7 mcg/kg/hr INTRAVENOUS ONE TIME [START ON 03/28/2018] EPINEPHrine 4 mg in NaCl 0.9% 250 mL 0.5-10 mcg/min INTRAVENOUS ONE TIME [START ON 03/28/2018] insulin regular iv infusion 250 units in NaCl 0.9% 250 mL - [place] CARD SURG NOMOGRAM 0-12 Units/hr INTRAVENOUS ONE TIME [START ON 03/28/2018] nitroglycerin 100 mg in D5W 250 mL 5- 20 mcg/min INTRAVENOUS ONE TIME [START ON 03/28/2018] PHENYLephrine iv infusion 10 mg in NaCl 0.9% 250 mL (UMBERTO-SYNEPHRINE) 0-100 mcg/min INTRAVENOUS ONE TIME [START ON 03/28/2018] anticoagulant CPDA-1 39 mL, potassium chloride 36 mEq, sodium bicarbonate 45 mEq, Lidocaine HCl(PF) 180 mg in NaCl 0.9% 250 mL (CARDROPLEGIA SOLUTION - BAG 1) INTRACAVITY ONE TIME [START ON 03/28/2018] potassium chloride 25 mEq, Lidocaine HCl(PF) 100 mg in NaCl 0.9% 500 mL (CARDIOPLEGIA SOLUTION - BAG 2) INTRACAVITY ONE TIME insulin lispro 10 Units pen (rapid acting) (HumaLOG KWIKPEN) 10 Units SUBCUTANEOUS w MEALS insulin detemir U-100 30 Units injection (long acting) (LEVEMIR) 30 Units SUBCUTANEOUS DAILY (8 AM) insulin lispro pen (rapid acting) (HumaLOG KWIKPEN) SUBCUTANEOUS w MEALS aspirin 81 mg chewable tab(s) 81 mg ORAL DAILY (6 AM) 0.9% NaCl 3-5 mL 3-5 mL INTRAVENOUS q 12 H atorvastatin 80 mg tab(s) (LIPITOR) 80 mg ORAL AT BEDTIME dextrose 40 % 15 g 15 g ORAL PRN glucagon 1 mg injection (GLUCAGEN) 1 mg INTRAMUSCULAR PRN dextrose 50% in water 25 mL syringe 12.5 g INTRAVENOUS PRN enoxaparin 105 mg injection (LOVENOX) 1 mg/kg/dose SUBCUTANEOUS q 12 HR nitroglycerin sublingual 0.4 mg tab(s) (NITROQUICK) 0.4 mg SUBLINGUAL PRN metoprolol tartrate (short acting) 25 mg tab(s) (LOPRESSOR) 25 mg ORAL q 12 H losartan 25 mg tab(s) (COZAAR) 25 mg ORAL DAILY Objective PHYSICAL EXAM: BP 96/51 Pulse 75 Temp (Src) 97.9 (Oral) Resp 18 Ht 5' 8 (1.73m) Wt 235 lb 3.2 oz (106.7kg) SpO2 93% BMI 35.77 kg/(m2). General: Well appearing, alert, in no acute distress, well- hydrated, well nourished. Obese Skin: skin color, texture, turgor normal, no rashes or lesions. Head: normocephalic, no masses, lesions, tenderness or abnormalities. Eyes: SUSAN,EOMI Oropharynx: moist Neck: Supple, no adenopathy; thyroid symmetric, normal size, no bruits Heart: RRR without murmur, gallop, or rubs. No ectopy Abdomen: soft, non-tender, positive bowel sounds Extremities: no edema, no calluses or ulcers present. Peripheral Pulses: posterior tibial and doralis pedis pulses 2+ and symmetrical ? DATA: Diagnostic tests reviewed for today's visit: Most recent labs and imaging results. Assessment/Plan DM (diabetes mellitus), type 2, uncontrolled; HbA1c 8.2; on oral antihyperglycemics (Metformin/Amaryl/Jardiance) at home; now with complications; ? CAD (coronary artery disease) severe. ?ACS (acute coronary syndrome) scheduled for revascularization on 03/28 ? Hyperlipemia POA: Yes Assessment AND Plan: per 1 service ? TEOFILO (obstructive sleep apnea) POA: Yes Assessment AND Plan: per 1 service. ? Recommendations: discontinued oral antihyperglycemics; on prog insulin Levemir 30 units daily AM and humalog 10 units qac tid plus correction. BS still >150's, will increase Humalog to 12 units tid. Will initiate IV insulin prior to OR for CABG on 03/28; will keep BS under tight control; will follow. SIGNATURE: Shazia Brown MD PATIENT NAME: Carlos Buckner DATE: March 27, 2018 TIME: 8:08 AM PAGER: [phone] Angel Garcia MD 03/27/2018 9:20 AM Signed [facility] MEDICINE PROGRESS NOTE SERVICE DATE: 03/27/2018 SERVICE TIME: 7:00 AM Hospital Medicine/Primary Attending: Angel Garcia MD NIGHT AND WEEKEND COVERAGE: From 7am - 7pm, please call [phone] After 7pm, please call cross cover pager #[phone] Subjective INTERVAL HPI: 57yo M whom I am seeing for the first time today taking over the case. Patient admitted from [facility] where he was found to have NSTEMI and multiple coronary arteries with significant blockages on cardiac catheterization therefore here to get CABG. Today patient in no distress stating he has no chest pain, no dyspnea, no abdominal pain, no nausea, no vomiting, no fever/chills, and understands why he needs a CABG. VSS MEDICATIONS: Reviewed Objective PHYSICAL EXAM: BP 96/51 Pulse 75 Temp (Src) 97.9 (Oral) Resp 18 Ht 5' 8 (1.73m) Wt 235 lb 3.2 oz (106.7kg) SpO2 93% BMI 35.77 kg/(m2). Physical Exam Performed GENERAL: Alert, no distress, cooperative SKIN: Skin color, texture, turgor normal. No rashes or lesions. OROPHARYNX: Lips, mucosa, and tongue normal. Teeth and gums normal. Oropharynx normal. LUNGS: Lungs clear to auscultation, Good diaphragmatic excursion, no wheezing, no crackles CARDIAC: Normal S1 and S2; no rubs, murmurs, or gallops, RRR ABDOMEN: Abdomen soft, non-tender, BS normal, No masses or organomegaly EXTREMITIES: Extremities normal, no deformities, edema, clubbing or skin discoloration. Good capillary refill., No ulcers NEURO: Gait normal. Reflexes normal and symmetric. Sensation grossly intact, Cranial nerves II-XII intact PULSES: 2+ radial, 2+ carotid Lines, Drains, and Airways Line Peripheral Assessment Short Left Forearm 20 Gauge -- days Reviewed lines, drains, AND airways. Need to be continued . DATA: Diagnostic tests reviewed for today's visit: Most recent labs and imaging results. Assessment/Plan 1) Acute Coronary Syndrome with NSTEMI and multivessel blockages that are significant indicated above. - CABG tomorrow NPO after midnight - Cardiology on board - Continue ASA 81mg daily - Continue Atorvastatin 80mg daily - Continue Lovenox 105mg BID - Continue Metoprolol 25mg BID 2) Type II DM: - Stopped Glimipiride ( I do not like using PO antidiabetic medications as an inpatient basis and this is not a good one to be on with high hypoglycemic risk consider stopping this at time of discharge) - Insulin sliding scale - Glucometer checks 3x/day - Insulin Levemir 30 units in the AM - Insulin Humalog 12units TID before meals - Endocrinology on board 3) TEOFILO - Continue CPAP at night 4) HTN: - Continue Metoprolol 25mg BID - Continue Losartan 25mg daily 5) HLD - Continue Atorvastatin 80mg daily Medication and Non-Pharmacologic VTE Prophylaxis/Anticoagulants Anticoagulant AND Antiplatelet Medications Start Dose Route Frequency Ordered Stop 03/28/18 1330 heparin 3,000 Units in NaCl 0.9% 500 mL irrigation 3,000 Units IRRIGATION ONE TIME 03/27/18 0722 -- 03/23/18 0600 aspirin 81 mg chewable tab(s) 81 mg ORAL DAILY AT 6 AM 03/22/18 0956 -- 03/21/18 2300 enoxaparin 105 mg injection (LOVENOX) 1 mg/kg/dose SUBCUTANEOUS EVERY 12 HOURS 03/21/18225703/27/18 23503/21/18 224 vte non-pharmacologic prophylaxis - none indicated ([place]) 03/21/182144 vte current anticoag therapy ([place]) 03/21/182144 pneumatic compression stockings ([place]) VTE Prophylaxis: VTE prophylaxis appropriate Disposition: Inpatient Plan of care discussed with: Patient SIGNATURE: Angel Garcia MD PATIENT NAME: Carlos Buckner DATE: March 27, 2018 TIME: 7:00 AM PAGER/CONTACT #: [phone] etx [phone] Mike Rose MD 03/27/2018 12:01 PM Signed Patient seen and Deng's test repeated and OK/adequate for Right radial use. Questions answered. OR tomorrow afternoon as 2nd case. Preops in per [employer]. Chaplain Katz Chaplain 03/27/2018 7:49 PM Signed SPIRITUALCARE Spiritual Care Visit- Brief Note Name: Carlos Buckner Date: March 27, 2018 Notes: Scrub Sheet Patient. Patient in the shower, his Ramana and daughter Tona in the room. I made Spiritual Care available for patient and family. Podopediatrician Signature: Chaplain Sterling To contact the Spiritual Care Department: Please call [phone] or Page the On-Call Podopediatrician at pager [phone] Thank you for the opportunity to be of service. This is an electronically created document. IF PRINTED, PLEASE DO NOT REMOVE FROM THE CHART OR MODIFY PRINTED COPY. Ifeoma Cadena MD 03/28/2018 12:32 PM Signed ENDOCRINOLOGY CONSULT PROGRESS NOTE SERVICE DATE: 03/28/2018 SERVICE TIME: 9:20 AM Subjective INTERVAL HPI: pt seen for diabetes mellitus; no complaints today, taking po well, BS's 200's on Levemir 30 units qam and prandial humalog 10 units qac tid plus correction; No CP; no SOB, no nausea; awaiting CABG today DIET NPO Current hospital medications: lactated ringers infusion 75 mL/hr INTRAVENOUS CONTINUOUS heparin 3,000 Units in NaCl 0.9% 500 mL irrigation 3,000 Units IRRIGATION ONE TIME PHENYLephrine 20 mg in NaCl 0.9% 250 mL (NEOSYNEPHRINE) 25- 300 mcg/min INTRAVENOUS ONE TIME aminocaproic acid 10 g in NaCl 0.9% 250 mL (AMicAR) 1 g/hr INTRAVENOUS ONE TIME dexmedetomidine 400 mcg in NaCl 0.9% 100 mL (PRECEDEX) 0.2- 0.7 mcg/kg/hr INTRAVENOUS ONE TIME EPINEPHrine 4 mg in NaCl 0.9% 250 mL 0.5-10 mcg/min INTRAVENOUS ONE TIME insulin regular iv infusion 250 units in NaCl 0.9% 250 mL - [place] CARD SURG NOMOGRAM 0-12 Units/hr INTRAVENOUS ONE TIME nitroglycerin 100 mg in D5W 250 mL 5-20 mcg/min INTRAVENOUS ONE TIME PHENYLephrine iv infusion 10 mg in NaCl 0.9% 250 mL (UMBERTO-SYNEPHRINE) 0-100 mcg/min INTRAVENOUS ONE TIME anticoagulant CPDA-1 39 mL, potassium chloride 36 mEq, sodium bicarbonate 45 mEq, Lidocaine HCl(PF) 180 mg in NaCl 0.9% 250 mL (CARDROPLEGIA SOLUTION - BAG 1) INTRACAVITY ONE TIME potassium chloride 25 mEq, Lidocaine HCl(PF) 100 mg in NaCl 0.9% 500 mL (CARDIOPLEGIA SOLUTION - BAG 2) INTRACAVITY ONE TIME insulin lispro 12 Units pen (rapid acting) (HumaLOG KWIKPEN) 12 Units SUBCUTANEOUS w MEALS insulin regular iv infusion 250 units in NaCl 0.9% 250 mL - AK CARD SURG NOMOGRAM 0-12 Units/hr INTRAVENOUS CONTINUOUS insulin detemir U-100 30 Units injection (long acting) (LEVEMIR) 30 Units SUBCUTANEOUS DAILY (8 AM) insulin lispro pen (rapid acting) (HumaLOG KWIKPEN) SUBCUTANEOUS w MEALS aspirin 81 mg chewable tab(s) 81 mg ORAL DAILY (6 AM) 0.9% NaCl 3-5 mL 3-5 mL INTRAVENOUS q 12 H atorvastatin 80 mg tab(s) (LIPITOR) 80 mg ORAL AT BEDTIME dextrose 40 % 15 g 15 g ORAL PRN glucagon 1 mg injection (GLUCAGEN) 1 mg INTRAMUSCULAR PRN dextrose 50% in water 25 mL syringe 12.5 g INTRAVENOUS PRN nitroglycerin sublingual 0.4 mg tab(s) (NITROQUICK) 0.4 mg SUBLINGUAL PRN metoprolol tartrate (short acting) 25 mg tab(s) (LOPRESSOR) 25 mg ORAL q 12 H losartan 25 mg tab(s) (COZAAR) 25 mg ORAL DAILY Objective PHYSICAL EXAM: BP 108/64 Pulse 78 Temp (Src) 96.8 (Oral) Resp 19 Ht 5' 8 (1.73m) Wt 232 lb (105.2kg) SpO2 98% BMI 35.28 kg/(m2). General: Well appearing, alert, in no acute distress, well- hydrated, well nourished. and Obese Skin: skin color, texture, turgor normal, no rashes or lesions. Head: normocephalic, no masses, lesions, tenderness or abnormalities. Eyes: SUSAN,EOMI Oropharynx: moist Neck: Supple, no adenopathy; thyroid symmetric, normal size, no bruits Heart: RRR without murmur, gallop, or rubs. No ectopy Abdomen: soft, non-tender, positive bowel sounds Extremities: no edema, no calluses or ulcers present. Peripheral Pulses: posterior tibial and doralis pedis pulses 2+ and symmetrical ? DATA: Diagnostic tests reviewed for today's visit: Most recent labs and imaging results. Assessment/Plan DM (diabetes mellitus), type 2, uncontrolled; HbA1c 8.2; on oral antihyperglycemics (Metformin/Amaryl/Jardiance) at home; now with complications; ? CAD (coronary artery disease) severe. ?ACS (acute coronary syndrome) scheduled for revascularization on 03/28 ? Hyperlipemia POA: Yes Assessment AND Plan: per 1 service ? TEOFILO (obstructive sleep apnea) POA: Yes Assessment AND Plan: per 1 service. ? Recommendations: discontinued oral antihyperglycemics; started on prog insulin Levemir 30 units daily AM and humalog 10 units qac tid plus correction. BS >150's, continue rx. Will initiate iv insulin prior to OR for CABG on 03/28; will keep BS under tight control; will follow. SIGNATURE: Ifeoma Cadena MD PATIENT NAME: Carlos Buckner DATE: March 28, 2018 TIME: 12:32 PM PAGER: [phone] Angel Garcia MD 03/28/2018 10:30 AM Signed [facility] MED[facility] PROGRESS NOTE SERVICE DATE: 03/28/2018 SERVICE TIME: 7:00 AM Hospital Medicine/Primary Attending: Angel Garcia MD NIGHT AND WEEKEND COVERAGE: From 7am - 7pm, please call [phone] After 7pm, please call cross cover pager #[phone] Subjective INTERVAL HPI: 57yo M whom I am seeing for the first time today taking over the case. Patient admitted from [facility] where he was found to have NSTEMI and multiple coronary arteries with significant blockages on cardiac catheterization therefore here to get CABG. Today patient in no distress stating he has no chest pain, no dyspnea, no abdominal pain, no nausea, no vomiting, no fever/chills, and is ready for CABG. VSS MEDICATIONS: Reviewed Objective PHYSICAL EXAM: BP 124/65 Pulse 78 Temp (Src) 96.8 (Oral) Resp 19 Ht 5' 8 (1.73m) Wt 234 lb 12.8 oz (106.5kg) SpO2 98% BMI 35.71 kg/(m2). Physical Exam Performed GENERAL: Alert, no distress, cooperative SKIN: Skin color, texture, turgor normal. No rashes or lesions. OROPHARYNX: Lips, mucosa, and tongue normal. Teeth and gums normal. Oropharynx normal. LUNGS: Lungs clear to auscultation, Good diaphragmatic excursion, no wheezing, no crackles CARDIAC: Normal S1 and S2; no rubs, murmurs, or gallops, RRR ABDOMEN: Abdomen soft, non-tender, BS normal, No masses or organomegaly EXTREMITIES: Extremities normal, no deformities, edema, clubbing or skin discoloration. Good capillary refill., No ulcers NEURO: Gait normal. Reflexes normal and symmetric. Sensation grossly intact, Cranial nerves II-XII intact PULSES: 2+ radial, 2+ carotid Lines, Drains, and Airways Line Peripheral Assessment Short Left Forearm 20 Gauge -- days Reviewed lines, drains, AND airways. Need to be continued . DATA: Diagnostic tests reviewed for today's visit: Most recent labs and imaging results. Assessment/Plan 1) Acute Coronary Syndrome with NSTEMI and multivessel blockages that are significant indicated above. - CABG today - Cardiology on board - Continue ASA 81mg daily - Continue Atorvastatin 80mg daily - Continue Lovenox 105mg BID - Continue Metoprolol 25mg BID 2) Type II DM: - Stopped Glimipiride ( I do not like using PO antidiabetic medications as an inpatient basis and this is not a good one to be on with high hypoglycemic risk consider stopping this at time of discharge) - Insulin sliding scale - Glucometer checks 3x/day - Insulin Levemir 30 units in the AM - Insulin Humalog 12units TID before meals - Endocrinology on board 3) TEOFILO - Continue CPAP at night 4) HTN: - Continue Metoprolol 25mg BID - Continue Losartan 25mg daily 5) HLD - Continue Atorvastatin 80mg daily Medication and Non-Pharmacologic VTE Prophylaxis/Anticoagulants Anticoagulant AND Antiplatelet Medications Start Dose Route Frequency Ordered Stop 03/28/18 1330 heparin 3,000 Units in NaCl 0.9% 500 mL irrigation 3,000 Units IRRIGATION ONE TIME 03/27/18 0722 -- 03/23/18 0600 aspirin 81 mg chewable tab(s) 81 mg ORAL DAILY AT 6 AM 03/22/18 0956 -- 03/21/18 2245 vte non-pharmacologic prophylaxis - none indicated ([place]) 03/21/182144 vte current anticoag therapy ([place]) 03/21/182144 pneumatic compression stockings ([place], [place]) VTE Prophylaxis: VTE prophylaxis appropriate Disposition: Inpatient Plan of care discussed with: Patient SIGNATURE: Angel Garcia MD PATIENT NAME: Carlos Buckner DATE: March 28, 2018 TIME: 7:00 AM PAGER/CONTACT #: [phone] [id number] Yoel Madsen MD 03/28/2018 1:48 PM Signed ANESTHESIOLOGY DAY OF SURGERY NOTE SERVICE DATE: 03/28/2018 SERVICE TIME: 1:47 PM : 1960 Procedure(s) (LRB): BYPASS GRAFT ARTERY CORONARY ON-PUMP USING VENOUS GRAFT(S) AND ARTERIAL GRAFT(S) THREE VENOUS GRAFTS (N/A) Surgeon(s): Mike Rose Estimated body mass index is 35.28 kg/m? as calculated from the following: Height as of this encounter: 172.7 cm (5' 8). Weight as of this encounter: 105.2 kg (232 lb). Most recent hematocrit and potassium results: Hematocrit 37.9 03/28/2018 Potassium 3.8 03/28/2018 ANES DOS/PREOP NOTE: Vitals: 03/28/18 1135 03/28/18 1147 03/28/18 1301 03/28/18 1304 BP: 108/64 117/64 Pulse: 77 Resp: 13 Temp: 36.2 ?C (97.2 ?F) TempSrc: Temporal Artery SpO2: 99% Weight: 105.2 kg (232 lb) Height: ACTIVE PROBLEM LIST Hyperlipemia Teofilo (Obstructive Sleep Apnea) Dm (Diabetes Mellitus), Type 2, Uncontrolled (Hcc) Erectile Dysfunction Associated With Type 2 Diabetes Mellitus (Hcc) Hypertriglyceridemia Htn (Hypertension) Chest Pain Cad (Coronary Artery Disease) Acs (Acute Coronary Syndrome) (Hcc) Nstemi (Non-St Elevated Myocardial Infarction) (Hcc) PAST MEDICAL HISTORY Diagnosis Date - CAD (coronary artery disease) - HLD (hyperlipidemia) - HTN (hypertension) 06/10/2017 - Obstructive sleep apnea - Type II or unspecified type diabetes mellitus without mention of complication, not stated as uncontrolled PAST SURGICAL HISTORY Procedure Laterality Date - COLONOSCOP W/ OR W/O BRSH SPEC 01/17/15 Colonoscopy - KIDNEY SURGERY HX - LITHOTRIPSY PROC UNILATERAL 2006 left side done in [place] - PAST SURGICAL HISTORY OF dog bite age 5 - PAST SURGICAL HISTORY OF chainsaw injury FAMILY HISTORY Problem Relation Age of Onset - other (polio) Mother - Emphysema Father - Diabetes Maternal Grandfather - COPD Paternal Grandmother - COPD Paternal Grandfather Social History: Social History Substance Use Topics - Smoking status: Never Smoker - Smokeless tobacco: Never Used - Alcohol use No No current facility-administered medications on file prior to encounter. Current Outpatient Prescriptions on File Prior to Encounter: atorvastatin (LIPITOR) 80 mg tablet TAKE ONE TABLET BY MOUTH ONCE DAILY empagliflozin (JARDIANCE) 25 mg tablet Take 1 tablet by mouth once daily. glimepiride (AMARYL) 4 mg tablet Take 1 tablet by mouth twice daily with meals. lisinopril 2.5 mg tablet Take 1 tablet by mouth once daily. metFORMIN (GLUCOPHAGE) 1,000 mg tablet Take 1 tablet by mouth twice daily with meals. blood sugar diagnostic (BLOOD GLUCOSE TEST) test strip Test blood sugar(s) 2x daily. Dx: E11.65. Insulin: No Ibuprofen 200 mg cap Take 200 mg by mouth once daily. Blood-Glucose Meter monitoring kit Glucose Meter of Choice - Kit - Dx: Type 2 DM - Uncontrolled E11.65 (per insurance) Lancets lancets Test blood sugar(s) 2x daily. Dx: E11.65. Insulin: No COMPOUNDED PRESCRIPTION CPAP @ 8 cm of water with humidification. Mask (per patient preference) optional chin strap (if indicated) , filters, tubing, humidifier and lifetime supplies. Dx. TEOFILO 327.23 Current Facility-Administered Medications: [MAR Hold due to Transfer] lactated ringers infusion 75 mL/hr INTRAVENOUS CONTINUOUS Mike Rose Last Rate: 75 mL/hr at 03/28/18 09 75 mL/hr at 03/28/18 09 [MAR Hold due to Transfer] heparin 3,000 Units in NaCl 0.9% 500 mL irrigation 3,000 Units IRRIGATION ONE TIME Mike Rose [MAR Hold due to Transfer] PHENYLephrine 20 mg in NaCl 0.9% 250 mL (NEOSYNEPHRINE) 25-300 mcg/min INTRAVENOUS ONE TIME Mike Rose [MAR Hold due to Transfer] aminocaproic acid 10 g in NaCl 0.9% 250 mL (AMicAR) 1 g/hr INTRAVENOUS ONE TIME Mike Rose [MAR Hold due to Transfer] dexmedetomidine 400 mcg in NaCl 0.9% 100 mL (PRECEDEX) 0.2-0.7 mcg/kg/hr INTRAVENOUS ONE TIME Mike Rose [MAR Hold due to Transfer] EPINEPHrine 4 mg in NaCl 0.9% 250 mL 0.5-10 mcg/min INTRAVENOUS ONE TIME Mike Rose [MAR Hold due to Transfer] insulin regular iv infusion 250 units in NaCl 0.9% 250 mL - AK CARD SURG NOMOGRAM 0-12 Units/hr INTRAVENOUS ONE TIME Mike Rose [MAR Hold due to Transfer] nitroglycerin 100 mg in D5W 250 mL 5-20 mcg/min INTRAVENOUS ONE TIME Mike Rose [MAR Hold due to Transfer] PHENYLephrine iv infusion 10 mg in NaCl 0.9% 250 mL (UMBERTO-SYNEPHRINE) 0-100 mcg/min INTRAVENOUS ONE TIME Mike Rose [MAR Hold due to Transfer] anticoagulant CPDA-1 39 mL, potassium chloride 36 mEq, sodium bicarbonate 45 mEq, Lidocaine HCl(PF) 180 mg in NaCl 0.9% 250 mL (CARDROPLEGIA SOLUTION - BAG 1) INTRACAVITY ONE TIME Mike Rose [MAR Hold due to Transfer] potassium chloride 25 mEq, Lidocaine HCl(PF) 100 mg in NaCl 0.9% 500 mL (CARDIOPLEGIA SOLUTION - BAG 2) INTRACAVITY ONE TIME Mike Perea Milton [JUL Hold due to Transfer] insulin lispro 12 Units pen (rapid acting) (HumaLOG KWIKPEN) 12 Units SUBCUTANEOUS w MEALS Shazia Midha 12 Units at 03/27/18 1738 [MAR Hold due to Transfer] insulin regular iv infusion 250 units in NaCl 0.9% 250 mL - AK CARD SURG NOMOGRAM 0-12 Units/hr INTRAVENOUS CONTINUOUS Shazia Midha [JUL Hold due to Transfer] insulin detemir U-100 30 Units injection (long acting) (LEVEMIR) 30 Units SUBCUTANEOUS DAILY (8 AM) Ifeoma Ciltea 30 Units at 03/28/18 0830 [JUL Hold due to Transfer] insulin lispro pen (rapid acting) (HumaLOG KWIKPEN) SUBCUTANEOUS w MEALS Ifeoma Ciltea 1 Units at 03/28/18 1200 [JUL Hold due to Transfer] aspirin 81 mg chewable tab(s) 81 mg ORAL DAILY (6 AM) Alex (Digital Media Producer) TOMAS Ortega.[employer] 81 mg at 03/28/18 0509 [JUL Hold due to Transfer] 0.9% NaCl 3-5 mL 3-5 mL INTRAVENOUS q 12 H Eliazar Lutz 5 mL at 03/28/18 0941 [JUL Hold due to Transfer] atorvastatin 80 mg tab(s) (LIPITOR) 80 mg ORAL AT BEDTIME Veronica Tetyuk 80 mg at 03/27/182003 [JUL Hold due to Transfer] dextrose 40 % 15 g 15 g ORAL PRN Veronica Tetyuk Or [JUL Hold due to Transfer] glucagon 1 mg injection (GLUCAGEN) 1 mg INTRAMUSCULAR PRN Veronica Tetyuk Or [JUL Hold due to Transfer] dextrose 50% in water 25 mL syringe 12.5 g INTRAVENOUS PRN Veronica Tetyuk [JUL Hold due to Transfer] nitroglycerin sublingual 0.4 mg tab(s) (NITROQUICK) 0.4 mg SUBLINGUAL PRN Veronica Tetyuk [JUL Hold due to Transfer] metoprolol tartrate (short acting) 25 mg tab(s) (LOPRESSOR) 25 mg ORAL q 12 H Veronica Tetyuk 25 mg at 03/28/18 0825 [MAR Hold due to Transfer] losartan 25 mg tab(s) (COZAAR) 25 mg ORAL DAILY Veronica Nulluk 25 mg at 03/28/18 0826 Allergies: ALLERGIES Allergen Reactions - Oysters Rash, Itching - Shellfish Containin* Rash DOS EXAM: Adequate NPO Status: Yes Anesthetic Risks, Benefits, Alternatives, Personnel and Consent Discussed: Yes Patient agrees to proceed: Yes Previous Anesthesia: No history of adverse event Airway Assessment: MP 3; Neck ROM: Full ROM without neurologic symptoms; Airway Evaluation: Thick neck Symptoms of Sleep Apnea: Hypertension, Age over 50 (57 year old), Neck circumference > 15.75 inches and Male gender Dentition: Teeth intact Additional Physical Exam: Lungs: Patient health status unchanged since recent history and physical. See history and physical for exam findings. Cardiac: Patient health status unchanged since recent history and physical. See history and physical for exam findings. Additional Pertinent Findings: N/A Blood Products: Will accept Blood/Blood Products Anesthetic Plan: General Anesthetic Monitoring: Standard ASA Monitors, Invasive Hemodynamic Monitoring Arterial line, Introducer, PA Catheter, JUAN CARLOS - patient denies history of stricture or varices and CVP, Potential Prolonged Intubation and Potential ICU Admission Postop Pain Management Plan: Parenteral or Oral ASA Class: 4 Other Medical Problems: See cardiac studies below HLD, HTN TEOFILO with CPAP NIDDM2 - has been on insulin this admission, last blood glucose 170 this AM (1117) Presented with chest pain at OSH 1.5 weeks prior. Found to have 3 vessel disease on cardiac cath. Loaded with plavix and sent to [facility]. Recent Labs 03/28/18 0243 03/27/18 0530 WBC 4.52 5.29 HB 13.0* 14.4 HCT 37.9* 41.3 PLT 174 192 INR 1.03 -- NA 137 138 K 3.8 3.9 CHLOR 104 104 CO2 26 25 BUN 17 19* CREAT 0.84 0.95 GLUC 198* 160* CA 8.5 8.4* Antibody Screen Date Value Ref Range Status 03/28/2018 NEGATIVE Final Chronic Beta Hector medication administered within 24 hours: Yes Also received ASA this AM (03/28/2018 I have interviewed and examined the patient. I have reviewed the medical record and/or the pre-anesthesia evaluation, pertinent labs, and test results. Significant changes in the patient's condition since the History and Physical, not otherwise documented in primary service progress notes: No This contains updated information obtained within 48 hours of Surgery/Procedure. SIGNATURE: Yoel Madsen MD PATIENT NAME: Carlos Buckner DATE: March 28, 2018 TIME: 12:12 PM CSN: [id number] Cardiac Catheterization 03/21: Left heart assessment: anterior hypokinesis. Apical hypokinesis, inferior basal hypokinesis, inferior mid hypokinesis LV gram: 55% Elevated LVEDP: 33 mmHg Mild Segmented LV systolic dysfunction ? Left main: normal LAD: mild luminal irregularities Prox LAD: Eccentric : 50% stenosis Diagonal 1: proximal-long: diffused: irregular: 85% stenosis ? Circumflex: prox Circ: mild luminal irregularities OM1: proximal-is subtotally occluded, mid-95% stenosis ? RCA: prox RCA: LONG- DIFFUSED: IRREGULAR: 85% MID RCA: is subtotally occluded Distal RCA: fills late, faintly and partially from bridging collaterals and more predominantly from left to right collateral low ? Collateral flow: collateral from L-R ? Valve findings: Normal AV function Normal MV function ? Aortic root: angiographically normal ECHO: EF: 55% LV: normal LV size segmental dysfunction with preserved ejection fraction. The estimated ejection fraction is 55%. Transmural Doppler flow suggested suggestive of impaired relaxation of the left ventricle. inferobasal: Hypokinetic, mid lateral: hypokinetic, mid posterior: hypokinetic, mid inferior: hypokinetic, anterior apex: Hypokinetic, inferior apex: Hypokinetic. ? RV: Normal size and normal function ? Atria: Normal left atrium, normal right atrium. No Doppler evidence for ASD ? MV: No mitral annular calcification. Normal mitral valve. Mild 1+ mitral valve insufficiency. ? TV: normal tricuspid valve. Trivial tricuspid valve insufficiency. RVSP 25 mmHg ? AV: Trisinus trileaflet aortic valve. Mild focal aortic valve calcification. ? PV: The pulmonic valve is not well visualized. ? Great vessels: Normal sized aortic root ? Pericardium: No pericardial effusion. Previous Version BEDSIDE GLUCOSE Collected: 03/20/2018 Status: F Source: BRITTNY 11:08 PM [facility] REPOSITORY TYPE CODE TESTS RESULT OUT OF REFERENCE UNITS RANGE LAB L501.080 70-110 mg/dL High BEDSIDE GLU 149 Result Comment: MANAGEMENT OF PATIENT CARE PER NURSING PROTOCOL Performed By: #### L501.080 #### [facility] Point of Care [address] [place], [place] [id number] BEDSIDE GLUCOSE Collected: 03/20/2018 Status: F Source: BRITTNY 4:46 PM [facility] REPOSITORY TYPE CODE TESTS RESULT OUT OF REFERENCE UNITS RANGE LAB L501.080 70-110 mg/dL High BEDSIDE GLU 193 Result Comment: MANAGEMENT OF PATIENT CARE PER NURSING PROTOCOL Performed By: #### L501.080 #### [facility] Point of Care [address] [place] [address] TROPONIN-I Collected: 03/20/2018 Status: F Source: BRITTNY 1:10 PM [facility] REPOSITORY Order Comment: 'TROP' Serial specimen #1, #2 or #3: 1 TYPE CODE TESTS RESULT OUT OF RANGE REFERENCE UNITS LAB L501.4010 <0.045 ng/mL High alert 1.900 TROPONIN-I Result Comment: Critical Result(s) Called at: 14:05:59 03/20/2018 by: Bulmaro Vergara RN TROPONIN-I EXPECTED VALUES <0.045 Negative 0.045 - 0.590 Consistent with Cardiac Damage > OR = 0.600 Critical Value Not every elevated troponin is indicative of LA. These values should be used with clinical judgement in examining the patient's clinical picture for diagnosis. To establish a diagnosis of LA versus myocardial injury, there must be a demonstrated rise and/or fall in the troponin values, in addition to ischemic symptoms, EKG changes, new regional wall motion abnormality, and/or angiographical evidence. PLEASE NOTE: REFERENCE RANGES EDITED 17 Performed By: #### L501.4010 #### [facility] [address] [place], [place], [id number] BEDSIDE GLUCOSE Collected: 03/20/2018 Status: F Source: BRITTNY 11:25 AM [facility] REPOSITORY TYPE CODE TESTS RESULT OUT OF REFERENCE UNITS RANGE LAB L501.080 70-110 mg/dL High BEDSIDE GLU 233 Result Comment: MANAGEMENT OF PATIENT CARE PER NURSING PROTOCOL Performed By: #### L501.080 #### [facility] Point of Care [address] [facility] [facility] [place], [place] [address] LIVER PROFILE Collected: 03/20/2018 Status: F Source: [place] 10:20 AM [facility] REPOSITORY Order Comment: 'TROP' Serial specimen #1, #2 or #3: 1 Comments: Add to AM Labs Comments: Add to AM Labs TYPE CODE TESTS RESULT OUT OF RANGE REFERENCE UNITS LAB L501.1500 6.4-8.2 g/dL Normal T PROT 7.3 LAB L501.1800 3.2-5.0 g/dL Normal ALB 3.9 LAB L501.1950 2.2-4.2 g/dL Normal GLOB 3.4 LAB L501.4100 15-37 U/L Normal AST 28 LAB L501.4305 45-117 U/L High ALK P 122 LAB L501.4405 16-61 U/L Normal ALT 33 LAB L501.4600 0.20-1.00 mg/dL Normal T BILI 0.60 LAB L501.4700 0.00-0.30 mg/dL Normal D BILI 0.17 Performed By: #### L500.3400, L500.4100, L501.4010 #### [facility] [address] [place], [place], [address] LIPID PROFILE Collected: 03/20/2018 Status: F Source: [place] 10:20 AM [facility] REPOSITORY Order Comment: 'TROP' Serial specimen #1, #2 or #3: 1 Comments: Add to AM Labs Comments: Add to AM Labs TYPE CODE TESTS RESULT OUT OF RANGE REFERENCE UNITS LAB L501.4900 200 mg/dL Normal CHOL 162 Result Comment: <200 mg/dL Desirable 200-240 mg/dL Borderline >240 mg/dL High Risk LAB L501.5000 mg/dL High TRIG 471 Result Comment: The drugs N-Acetylcysteine and Metamizole may falsely depress this assay. TRIGLYCERIDE IS GREATER THAN 400 mg/dL. LDL RESULT IS INVALID AND WILL NOT BE REPORTED. Serum Triglycerides Reference Interval Normal <150 mg/dL Borderline high 150 - 199 mg/dL High 200 - 499 mg/dL Very High > or = 500 mg/dL LAB L501.6400 mg/dL Low HDL 30 Result Comment: The drugs N-Acetylcysteine and Metamizole may falsely depress this assay. Reference Range HDL <40 mg/dL Low HDL Cholesterol HDL >or= 60 mg/dL High HDL Cholesterol LAB L501.6500 0-130 mg/dL Test Normal not performed LDL LAB L501.6600 5-40 mg/dL Test Normal not performed VLDL Performed By: #### L500.3400, L500.4100, L501.4010 #### [facility] [address] [place], [address] TROPONIN-I Collected: 03/20/2018 Status: F Source: [place] 10:20 AM [facility] REPOSITORY Order Comment: 'TROP' Serial specimen #1, #2 or #3: 1 Comments: Add to AM Labs Comments: Add to AM Labs TYPE CODE TESTS RESULT OUT OF RANGE REFERENCE UNITS LAB L501.4010 <0.045 ng/mL High alert 2.140 TROPONIN-I Result Comment: Critical Result(s) Called at: 10:57:47 03/20/2018 by: Bulmaro Vergara RN TROPONIN-I EXPECTED VALUES <0.045 Negative 0.045 - 0.590 Consistent with Cardiac Damage > OR = 0.600 Critical Value Not every elevated troponin is indicative of LA. These values should be used with clinical judgement in examining the patient's clinical picture for diagnosis. To establish a diagnosis of LA versus myocardial injury, there must be a demonstrated rise and/or fall in the troponin values, in addition to ischemic symptoms, EKG changes, new regional wall motion abnormality, and/or angiographical evidence. PLEASE NOTE: REFERENCE RANGES EDITED 17 Performed By: #### L500.3400, L500.4100, L501.4010 #### [facility] [address] [place], [address] BEDSIDE GLUCOSE Collected: 03/20/2018 Status: F Source: [place] 6:50 AM [facility] REPOSITORY TYPE CODE TESTS RESULT OUT OF REFERENCE UNITS RANGE LAB L501.080 70-110 mg/dL High BEDSIDE GLU 185 Result Comment: MANAGEMENT OF PATIENT CARE PER NURSING PROTOCOL Performed By: #### L501.080 #### [facility] Point of Care [address] [place], [place] [address] CBC W/DIFF, AUTOMATED Collected: 03/20/2018 Status: F Source: BRITTNY 6:25 AM [facility] REPOSITORY TYPE CODE TESTS RESULT OUT OF RANGE REFERENCE UNITS LAB L100.1000 4.4-11.0 K/mm3 Normal WBC 4.8 LAB L100.1200 4.6-6.2 M/mm3 Low RBC 4.42 LAB L100.1300 13.0-16.5 g/dl Normal HGB 13.9 LAB L100.1400 40-54 % Normal HCT 41.0 LAB L100.1500 80-94 fL Normal MCV 92.8 LAB L100.1600 27.0-32.0 pg Normal MCH 31.4 LAB L100.1700 32-36 g/gl Normal MCHC 33.9 LAB L100.1810 11.6-14.6 % Normal RDW CV 12.7 LAB L100.1820 35.1-43.9 fl Normal RDW SD 42.9 LAB L100.1900 150-450 K/mm3 Normal PLT 182 LAB L100.2000 6.2-12.0 fl Normal MPV 9.6 LAB L100.2100 47-70 % Normal NEUT% 68.4 LAB L100.2200 19-41 % Normal LY% 24.1 LAB L100.2300 0-10 % Normal MONO% 5.4 LAB L100.2400 0-5 % Normal EO% 1.9 LAB L100.2500 0-1 % Normal BASO% 0.2 LAB L100.2550 0.0-0.9 % Normal IM GRAN % 0.000 Result Comment: IG% - Immature Granulocytes (promyelocytes, myelocytes and metamyelocytes) > 1% indicates that a LEFT SHIFT is Present. LAB L100.2620 2.0-7.7 X10 3/uL Normal Absolute Neut 3.3 LAB L100.2720 0.83-4.51 X10 3/ul Normal Absolute Lymph 1.16 Performed By: #### L100.0100 #### [facility] [address] [place], [place], [address] BASIC METABOLIC Collected: 03/20/2018 Status: F Source: BRITTNY PROFILE (BMP) 6:25 AM [facility] REPOSITORY TYPE CODE TESTS RESULT OUT OF RANGE REFERENCE UNITS LAB L501.0100 74-106 mg/dL High GLU 158 Result Comment: Fasting Glucose result greater than or equal to 126 mg/dL suggests DIABETES MELLITUS per A.D.A. criteria. Please note revised GLUCOSE reference range effective 2017. LAB L501.1000 7-18 mg/dL Normal BUN 17 LAB L501.1100 0.70-1.30 mg/dL Normal CREAT,SERUM 1.07 Result Comment: The validity of the calculated GFR AND GFRAA in patients over 70 years has not been determined. Clinical correlation is essential. LAB L501.1110 >60 mL/min Normal EST GFR 76 Result Comment: Non- GFR Calc LAB L501.1115 >60 mL/min Normal EST GFR - AA 92 Result Comment: GFR Calc LAB L501.1255 ml/min Normal Estimated CRCL 78.65 LAB L501.1300 10-20 RATIO Normal BUN/CRE 15.9 LAB L501.2200 8.5-10 mg/dL Normal .1 CA 8.7 LAB L501.5300 136-14 mmol/L Normal 5 NA 141 LAB L501.5600 3.5-5. mmol/L Normal 1 K 3.9 LAB L501.5900 98-107 mmol/L Normal CL 105 LAB L501.6100 21.0-3 mmol/L Normal 2.0 CO2 26.0 LAB L501.6200 5-15 Normal GAP 10 Performed By: #### L500.2500 #### [facility] [address]. [place], [place], [id number] PROTHROMBIN TIME W/INR Collected: 03/20/2018 Status: F Source: [place] 6:25 AM [facility] REPOSITORY TYPE CODE TESTS RESULT OUT OF RANGE REFERENCE UNITS LAB L300.4150 11.7-14.9 SECONDS Normal PROTIME 14.4 LAB L300.4200 Normal INR 1.1 Performed By: #### L300.3900 #### [facility] [address] [facility]. [place], [place], [address] BEDSIDE GLUCOSE Collected: 03/19/2018 Status: F Source: BRITT[place] 10:25 PM [facility] REPOSITORY TYPE CODE TESTS RESULT OUT OF REFERENCE UNITS RANGE LAB L501.080 70-110 mg/dL High BEDSIDE GLU 132 Result Comment: MANAGEMENT OF PATIENT CARE PER NURSING PROTOCOL Performed By: #### L501.080 #### [facility] Point of Care [address] [place] [address] HISTORY AND PHYSICAL Observed: 03/19/2018 Status: F Source: [place] EXAM 7:56 PM [facility] REPOSITORY [facility] Medical Records Department [address] [place] [address] History and Physical 03/19/18 1930 MR#: [id number] Acct: [id number] Name: CARLOS BUCKNER Rep #: [id number] : 1960 57 From: Marek Whitt MD PCP: Care Physician, No Primary Status: ADM IN Y Location: [place] [address] Problem List (1) NSTEMI (non-ST elevated myocardial infarction) Status: Acute (2) Diabetes mellitus Status: Chronic (3) HTN (hypertension) Status: Chronic Qualifiers: Hypertension type: essential hypertension Qualified Code(s): I10 - Essential (primary) hypertension History of Present Illness Date of Admission: 03/19/18 Chief Complaint: Chest pain The patient is a 57 year old M with a PMH as above presenting with chest pain that would not resolve. He has been having intermittent chest pain with exertion only for the last few weeks that was very stable until today when it would not resolve when it usually would with rest. Maybe some radiation to his shoulder but otherwise no significant radiation, no diaphoresis. In the ER he was found to have a normal EKG but an elevated troponin to 0.29. Cardiology was consulted for the NSTEMI and recommended a cardiac cath, on wednesday, possibly sooner. Past Medical History Past Medical History (Chronic Problems): Chronic Problems HTN (hypertension) (Chronic) Diabetes mellitus (Chronic) Allergies shrimp Allergy (Verified 03/19/18 12:07) Rash Home Medications: Ambulatory Orders Medication Instructions Recorded Empagliflozin [Jardiance] 25 mg PO DAILY 03/19/18 Glimepiride [Amaryl] 4 mg PO BID 03/19/18 Metformin HCl 1,000 mg PO BID 03/19/18 Surgical History: no surgical history Lives: Spouse/ Significant Other Smoking Status: Never smoker Alcohol: None Drugs: None - *Family History Maternal History Items: Heart Disease, Hypertension Review of Systems Constitutional: Denies: Chills, Fever, Weight Change HEENT: Denies: Head Aches, Sinus Congestion, Sinus Drainage Cardiovascular: Reports: Chest Pain, Chest Pressure. Denies: Edema, Heaviness, Light Headedness, Orthopnea, Palpitations, Syncope Respiratory: Denies: Cough, Shortness of breath at rest, Sputum production Gastrointestinal: Denies: Abdominal Pain, Nausea, Vomiting Genitourinary: Denies: Dysuria Musculoskeletal: Denies: Joint Pain, Joint Tenderness Skin: Denies: Rash, Wounds Neurological: Denies: Numbness, Tingling, Focal weakness Psychiatric: Denies: Anxiety, Depression Hematologic/ Lymphatic: Denies: Easy Bruising, Easy Bleeding VTE Information - Inpt Only VTE Present on Admission: No Patient Problems: Active and Suspected Problems NSTEMI (non-ST elevated myocardial infarction) (Acute) - Physical Exam General: Alert, Oriented x3, Cooperative, No apparent distress HEENT: Atraumatic, PERRLA, EOMI, Normocephalic Neck: Supple, No JVD Lungs: Clear to auscultation, Normal air movement, No rhonchi, No wheeze, No rales Cardiovascular: Regular rate, Regular Rhythm, Normal S1, Normal S2, No murmurs Abdomen: Soft, Non Tender, Non-Distended, No Hepato-splenomegaly Extremities: No edema, Capillary Refill Less than 3 Seconds Skin: No rashes, No breakdown Musculoskeletal: No Tenderness to Palpation of Joints or Extremities Neurological: Neuro grossly intact, Sensory exam intact to light touch and pain Psych/Mental Status: Normal Affect, Appropriate Vital Signs Temp Pulse Resp BP Pulse Ox 98.1 F 94 18 123/76 H 96 03/19/18 16:04 03/19/18 18:00 03/19/18 16:04 03/19/18 16:04 03/19/18 16:04 Oxygen Delivery Method Room Air Weight: 235 lb 7.259 oz Body Mass Index (BMI) 33.7 Intake and Output for Last 24 Hours Intake Total 300 / 300 Balance 300 / 300 Laboratory Tests Past 24 Hrs WBC RBC Hgb Hct MCV MCH MCHC RDW RDW Differential Plt Count MPV Immature Gran % (Auto) POC Glucose POC Glucose 96 Assessment/Plan All Active Problems NSTEMI (non-ST elevated myocardial infarction) (Acute) 1. NSTEMI/HTN - Serial cardiac enzymes - C/s to cardiology - Start statin, Asa, loading dose of plavix, therapeutic lovenox - Plan for cath on Wednesday - Start metoprolol and nitro paste - Echo 2. DM - Will hold all oral meds - Start SSI and monitor DVT: therapeutic lovenox Diet: Cardiac Code Visit Inpatient E AND M: 50501 Init Hosp L3 03/19/181955 <Electronically signed by Marek Whitt MD> Date Marek Whitt MD Cosigner Signature: Date (if applicable) CC: No Primary Care Physician; Marek Whitt MD Signed TROPONIN-I Collected: 03/19/2018 Status: F Source: [place] 6:08 PM [facility] REPOSITORY Order Comment: 'TROP' Serial specimen #1, #2 or #3: 3 TYPE CODE TESTS RESULT OUT OF RANGE REFERENCE UNITS LAB L501.4010 <0.045 ng/mL High alert 1.180 TROPONIN-I Result Comment: Critical Result(s) Called to KENYETTA Pardo at: 19:25:02 03/19/2018 by: SALUD COSTA TROPONIN-I EXPECTED VALUES <0.045 Negative 0.045 - 0.590 Consistent with Cardiac Damage > OR = 0.600 Critical Value Not every elevated troponin is indicative of LA. These values should be used with clinical judgement in examining the patient's clinical picture for diagnosis. To establish a diagnosis of LA versus myocardial injury, there must be a demonstrated rise and/or fall in the troponin values, in addition to ischemic symptoms, EKG changes, new regional wall motion abnormality, and/or angiographical evidence. PLEASE NOTE: REFERENCE RANGES EDITED 17 Performed By: #### L501.4010 #### [facility] [address] [place], [address] CONSULTATION Observed: 03/19/2018 Status: F Source: [place] 5:33 PM [facility] REPOSITORY [facility] Medical Records Department [address] [place] [address] Consultation 03/19/18 1725 MR#: [id number] Acct: [id number] Name: CARLOS BUCKNER Rep #: [id number] : 1960 57 From: Vlad Rodriguez MD PCP: Care Physician, No Primary Status: ADM IN Y Location: [place] [address] Problem List (1) NSTEMI (non-ST elevated myocardial infarction) Status: Acute (2) HTN (hypertension) Status: Chronic Qualifiers: Hypertension type: essential hypertension Qualified Code(s): I10 - Essential (primary) hypertension (3) Diabetes mellitus Status: Chronic Reason for Consult Date of Consultation: 03/19/18 History of Present Illness: The patient is a 57 year old white male with a past medical history of possible hypertension, diabetes mellitus, who presents for evaluation of chest discomfort and subsequent objective findings with cardiac enzymes concerning for an acute coronary syndrome/non-ST segment elevation LA. The patient states for some time now he has been noticing dull chest discomfort which is waxed and waned. He notes this morning upon awakening he had similar type symptoms. He noted this event was more dramatic than the others. He stated he felt pressure in his chest. It radiated somewhat to his shoulders. He does not recall radiation to the neck or jaw. He does not recall any acute nausea, emesis, diaphoresis, or respiratory related issues. He subsequent he presented to the emergency department for further evaluation care. There he was found to have an indeterminant troponin I level. His ECG demonstrated sinus tachycardia with no acute ECG changes. He was treated medically which included aspirin and nitrate therapy. Had improvement in symptoms. He was placed in the PCU for further evaluation care. His subsequent troponin I level became positive. He denies any orthopnea or PND or worsening peripheral pitting edema. He denies any history of hemorrhagic or thrombotic related events. He does not recall undergoing cardiovascular evaluation in the past. He states he feels better at this time. [] Past Medical History Allergies/Adverse Reactions: Allergies shrimp Allergy (Verified 03/19/18 12:07) Rash Home Medications: Ambulatory Orders Medication Instructions Recorded Empagliflozin [Jardiance] 25 mg PO DAILY 03/19/18 Glimepiride [Amaryl] 4 mg PO BID 03/19/18 Metformin HCl 1,000 mg PO BID 03/19/18 Past Medical History (Chronic Problems): Chronic Problems HTN (hypertension) (Chronic) Diabetes mellitus (Chronic) Lives: Spouse/ Significant Other Smoking Status: Never smoker Alcohol: None Drugs: None Review of Systems - Review of Systems General: Denies: Fever, Night Sweats, Fatigue Cardiovascular: Reports: Chest Discomfort, Chest Discomfort at Rest, Chest Discomfort with Exertion. Denies: Shortness of Breath, Orthopnea, PND, Peripheral Edema, Palpitations, Lightheadedness, Dizziness, Near Syncope, Syncope Respiratory: Denies: Cough, Sputum Production, Hemoptysis Gastrointestinal: Denies: Hematemesis, Hematochezia, Melena Genitourinary: Denies: Dysuria, Hematuria Skin: Denies: Rash Subjectve: This is a 57-year-old white male who appears to be resting comfortably at the moment in no acute distress. Objective: Vital Signs Temp Pulse Resp BP Pulse Ox 98.1 F 85 18 123/76 H 96 03/19/18 16:04 03/19/18 16:04 03/19/18 16:04 03/19/18 16:04 03/19/18 16:04 Oxygen Delivery Method Room Air Weight: 235 lb 7.259 oz Body Mass Index (BMI) 33.7 General: Awake, Alert, Oriented x 3, Cooperative, No Acute Distress HEENT: Atraumatic, Normocephalic, PERRL, EOMI, Sclera Non Icteric Oral: Moist Mucosa Neck: Supple, Good ROM, No JVD Lungs: Clear to auscultation Cardiovascular: Regular Rhythm, Normal S1, Normal S2 Vascular: No Carotid Bruits Abdomen: Bowel Sounds Present, Soft, Non Tender Extremities: No Cyanosis, No Clubbing, No edema Neurological: No Focal Motor or Sensory Deficit Psych/Mental Status: Appropriate, Normal Affect 03/19/18 12:12: WBC 4.3 L, RBC 4.87, Hgb 15.4, Hct 44.8, MCV 92.0, MCH 31.6, MCHC 34.4, RDW 12.7, RDW Differential 42.5, Plt Count 200, MPV 10.1, Immature Gran % (Auto) 0.200, Neut % (Auto) 67.6, Lymph % (Auto) 19.4, Lander % (Auto) 11.0 H, Eos % (Auto) 1.6, Baso % (Auto) 0.2, Absolute Neuts (auto) 2.9, Total Counted Not Reportable 03/19/18 12:12: Sodium 136, Potassium 4.0, Chloride 101, Carbon Dioxide 25.0, Anion Gap 10, BUN 12, Creatinine 1.26, Est GFR (MDRD) Af Amer 76, Est GFR (MDRD) Non-Af 63, BUN/Creatinine Ratio 9.5 L, Glucose 261 H, Calcium 9.1, Troponin I 0.290 H 03/19/18 15:54: Troponin I 0.841 H* Rhythm: Sinus rhythm EKG: As noted above CXR: Preliminary evaluation: No acute cardiopulmonary disease process appreciated: Please see official report Assessment/Plan 1. Acute coronary syndrome/non-ST segment elevation LA The patient presents with symptoms and subsequent objective findings based on cardiac enzymes compatible with an acute coronary syndrome/non-ST segment elevation LA. The patient appears to be symptomatically improved status post initiation of medical therapy with aspirin and nitrates. He will continue to be monitored. His ECG will be followed. An echocardiogram will be requested to evaluate his left ventricular wall motion and systolic function. He will be recommended for further evaluation with diagnostic cardiac catheterization which may lead to revascularization therapy. In the interim he will continue medical management. This will include his antiplatelet therapy aspirin and agent such as clopidogrel/Plavix, nitrates, beta- blockers, and lipid-lowering agents. 2. Hypertension The patient's blood pressure was elevated upon arrival to hospital. It is unclear whether this represents a history of hypertension or being secondary to his ongoing discomfort. His blood pressures will need to be followed. He can be treated as needed. 3. Diabetes mellitus The will continue care per internal medicine. Comment: The patient's case was discussed and reviewed with the patient and Dr. Whitt. This note was generated with [employer] software. It may contain incorrect words, spelling, and punctuation that were not noted in checking the note before signing. 03/19/18 9269 <Electronically signed by Vlad Rodriguez MD> Date Vlad Rodriguez MD [facility] Signature (if applicable): Date CC: No Primary Care Physician; Vlad Rodriguez MD Signed BEDSIDE GLUCOSE Collected: 03/19/2018 Status: F Source: [place] 4:58 PM [facility] REPOSITORY TYPE CODE TESTS RESULT OUT OF RANGE REFERENCE UNITS LAB L501.080 70-110 mg/dL Normal BEDSIDE GLU 96 Result Comment: MANAGEMENT OF PATIENT CARE PER NURSING PROTOCOL Performed By: #### L501.080 #### [facility] Point of Care [address] [place] [address]. [place], [place] [address] TROPONIN-I Collected: 03/19/2018 Status: F Source: [place] 3:54 PM [facility] REPOSITORY TYPE CODE TESTS RESULT OUT OF RANGE REFERENCE UNITS LAB L501.4010 <0.045 ng/mL High alert 0.841 TROPONIN-I Result Comment: Critical Result(s) Called to KENYETTA Khalil at: 16:53:49 03/19/2018 by: SALUD COSTA TROPONIN-I EXPECTED VALUES <0.045 Negative 0.045 - 0.590 Consistent with Cardiac Damage > OR = 0.600 Critical Value Not every elevated troponin is indicative of LA. These values should be used with clinical judgement in examining the patient's clinical picture for diagnosis. To establish a diagnosis of LA versus myocardial injury, there must be a demonstrated rise and/or fall in the troponin values, in addition to ischemic symptoms, EKG changes, new regional wall motion abnormality, and/or angiographical evidence. PLEASE NOTE: REFERENCE RANGES EDITED 17 Performed By: #### L501.4010 #### [facility] [address] [facility] [place], [place], [id number] EMERGENCY DEPARTMENT Observed: 03/19/2018 Status: F Source: [place] SUMMARY 1:46 PM [facility] REPOSITORY [facility] Medical Records Department [address] [place] [address] Emergency Department Summary 03/19/18 1253 MR#: [id number] Acct: [id number] Name: CARLOS BUCKNER Rep #: [id number] : 1960 57 From: Demetrius Valencia MD PCP: Care Physician, No Primary Status: REG ER - ER Visit Summary Date of Service: 03/19/18 Chief Complaint: Midsternal chest dull pressure sensation with radiation to both shoulders and neck for the past couple of days. History of Present Illness: The patient is a 57 M who has history of type 2 diabetes. He denies history of hypertension, hypercholesterolemia or coronary disease. He is a non-smoker. He states he has never had a stress test. Patient presents because of mid sternal chest type dull sensation with radiation to both shoulders and anterior neck with no associated symptoms. Initially pain resolved with rest now states there is a constant dull discomfort. The pain is worse with activity and especially exertion. With resolution of activity discomfort now diminishes significantly and is dependent on the amount of activity that precipitated his chest pressure dull sensation. He denies fever, chills night sweats. He denies cough, orthopnea or PND. He denies any GI or symptoms. He denies myalgias, arthralgias or back pain. He denies any neurologic symptoms. He denies dysuria, polyuria or polydipsia. Physical Examination: Vital signs were noted and blood pressure elevated 182/117 heart rate 107. Head is atraumatic normocephalic. Pupils are equal round reactive. Extraocular muscles are intact. TMs are pearly white with landmarks noted. Nares patent with no drainage. Posterior pharynx without erythema or exudate. Uvula is midline. There is no dysphonia or dysphasia. Trachea is midline. There is no stridor with auscultation of the neck. Heart is regular without murmur, gallop or rub. S1 and S2 are normal. Lungs are clear to auscultation with good movement of air bilaterally. Abdomen soft nontender bowel sounds present normal. Lower extremity exam is remarkable for mild pitting edema bilaterally, which patient was unaware of. Neuro exam is nonfocal. Test Results: EKG was obtained and reveals a sinus rhythm rate of 104. WA interval, QRS duration, QT interval and axis are normal. Single view portable x-ray reveals normal cardiac silhouette, mediastinum and lung parenchyma. There is no evidence of congestive heart failure or effusion. White count is 4.3 thousand. Glucose is 261. Troponin is indeterminate at 0.29. Emergency Department Course and Treatment: Chest pain order set was initiated to difference between cardiac versus GI versus pulmonary etiology. He did receive aspirin and nitroglycerin. Since patient never had a stress test and presents with exertional chest pressure he was informed he would need admission/overnight stay for further testing. Patient reports his chest discomfort was alleviated with nitroglycerin. Treatment Plan: Dr. Rodriguez has been paged since patient has exertional angina with elevated markers and need for cardiac catheterization versus stress test. We will also discuss anticoagulation. Disposition: PCU Impression: 1. Exertional chest pain 2. Elevated troponin 3. Hyperglycemia and type II diabetic 4. History of hypertension This note was generated with [employer] dictation software. It may contain incorrect words, spelling, and punctuation that were not noted in review of the chart prior to signing ED Disposition - Plan for ED Patient: Chief Complaint: Chest Pain Referrals: Care Physician,No Primary [Primary Care Provider] - What to do if you have Problems For any increased pain, shortness of breath, bleeding, nausea or vomiting, chest pain, or any unexpected problems, contact your Primary Care Provider. Call [facility] ([phone]) or report to the closest Emergency Room. Call 911 if necessary. 03/19/18 1346 <Electronically signed by Demetrius Valencia MD> Date Demetrius Valencia MD Cosigner Signature (If Indicated): Date CC: No Primary Care Physician; Vlad Rodriguez MD CHEST 1 VIEW Observed: 03/19/2018 Status: F Source: [place] (PORTABLE) 12:19 PM [facility] REPOSITORY [facility] Imaging Services [facility] [place] [address] [address] Chest 1 View (Portable) MR#: [id number] Acct: [id number] Name: CARLOS BUCKNER Rep #: [id number] : 1960 M 57 From: Praveen Wang MD PCP: Care Physician, No Primary Status: REG ER Study: Chest 1 View (Portable) Date of Exam: 03/19/18 Exam# [id number] Ordering Dr: Demetrius Valencia MD STUDY: X-RAY CHEST REASON FOR EXAM: Male, 57 years old. Midanterior chest pain. TECHNIQUE: Single AP portable view of the chest. # of Images: 1 COMPARISON: AP upright and lateral views of the chest August 13, 2009. Report for that study not available for review at the time of this dictation. FINDINGS: The lungs are clear and expanded. There is no demonstrated pleural abnormality. Normal size heart. Normal mediastinum and amanda. Normal visualized pulmonary arteries. Normal visualized aortic arch and descending thoracic aorta. There are stable multilevel degenerative changes of the visualized thoracic spine. 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 There is no demonstrated abnormality of the visualized soft tissue structures of the upper abdomen. RAD/Chest 1 View (Portable) IMPRESSION: No acute cardiopulmonary disease. Electronically Signed: Martin Wang MD at 13:05 EDT , Service support , CC: No Primary Care Physician; Demetrius Valencia MD Jewelry Maker: Signed CBC W/DIFF, AUTOMATED Collected: 03/19/2018 Status: F Source: [place] 12:12 PM [facility] REPOSITORY TYPE CODE TESTS RESULT OUT OF RANGE REFERENCE UNITS LAB L100.1000 4.4-11.0 K/mm3 Low WBC 4.3 LAB L100.1200 4.6-6.2 M/mm3 Normal RBC 4.87 LAB L100.1300 13.0-16.5 g/dl Normal HGB 15.4 LAB L100.1400 40-54 % Normal HCT 44.8 LAB L100.1500 80-94 fL Normal MCV 92.0 LAB L100.1600 27.0-32.0 pg Normal MCH 31.6 LAB L100.1700 32-36 g/gl Normal MCHC 34.4 LAB L100.1810 11.6-14.6 % Normal RDW CV 12.7 LAB L100.1820 35.1-43.9 fl Normal RDW SD 42.5 LAB L100.1900 150-450 K/mm3 Normal PLT 200 LAB L100.2000 6.2-12.0 fl Normal MPV 10.1 LAB L100.2100 47-70 % Normal NEUT% 67.6 LAB L100.2200 19-41 % Normal LY% 19.4 LAB L100.2300 0-10 % High MONO% 11.0 LAB L100.2400 0-5 % Normal EO% 1.6 LAB L100.2500 0-1 % Normal BASO% 0.2 LAB L100.2550 0.0-0.9 % Normal IM GRAN % 0.200 Result Comment: IG% - Immature Granulocytes (promyelocytes, myelocytes and metamyelocytes) > 1% indicates that a LEFT SHIFT is Present. LAB L100.2620 2.0-7.7 X10 3/uL Normal Absolute Neut 2.9 LAB L100.2720 0.83-4.51 X10 3/ul Normal Absolute Lymph 0.83 Performed By: #### L100.0100 #### [facility] [address] [place], [address] BASIC METABOLIC Collected: 03/19/2018 Status: F Source: [place] PROFILE ([facility]) 12:12 PM [facility] REPOSITORY TYPE CODE TESTS RESULT OUT OF RANGE REFERENCE UNITS LAB L501.0100 74-106 mg/dL High GLU 261 Result Comment: Glucose result greater than or equal to 200 mg/dL suggests DIABETES MELLITUS per A.D.A. criteria. Please note revised GLUCOSE reference range effective 2017. LAB L501.1000 7-18 mg/dL Normal BUN 12 LAB L501.1100 0.70-1.30 mg/dL Normal CREAT,SERUM 1.26 Result Comment: The validity of the calculated GFR AND GFRAA in patients over 70 years has not been determined. Clinical correlation is essential. LAB L501.1110 >60 mL/min Normal EST GFR 63 Result Comment: Non- GFR Calc LAB L501.1115 >60 mL/min Normal EST GFR - AA 76 Result Comment: GFR Calc LAB L501.1255 ml/min Normal Estimated CRCL 66.79 LAB L501.1300 10-20 RATIO Low BUN/CRE 9.5 LAB L501.2200 8.5-10 mg/dL Normal .1 CA 9.1 LAB L501.5300 136-14 mmol/L Normal 5 NA 136 LAB L501.5600 3.5-5. mmol/L Normal 1 K 4.0 LAB L501.5900 98-107 mmol/L Normal CL 101 LAB L501.6100 21.0-3 mmol/L Normal 2.0 CO2 25.0 LAB L501.6200 5-15 Normal GAP 10 Performed By: #### L500.2500, L501.4010 #### [facility] [address] [facility] [place], [place], [address] TROPONIN-I Collected: 03/19/2018 Status: F Source: [place] 12:12 PM [facility] REPOSITORY TYPE CODE TESTS RESULT OUT OF RANGE REFERENCE UNITS LAB L501.4010 <0.045 ng/mL High 0.290 TROPONIN-I Result Comment: TROPONIN-I EXPECTED VALUES <0.045 Negative 0.045 - 0.590 Consistent with Cardiac Damage > OR = 0.600 Critical Value Not every elevated troponin is indicative of LA. These values should be used with clinical judgement in examining the patient's clinical picture for diagnosis. To establish a diagnosis of LA versus myocardial injury, there must be a demonstrated rise and/or fall in the troponin values, in addition to ischemic symptoms, EKG changes, new regional wall motion abnormality, and/or angiographical evidence. PLEASE NOTE: REFERENCE RANGES EDITED 17 Performed By: #### L500.2500, L501.4010 #### [facility] [address] [place], [address] CNPN Observed: 08/09/2017 Status: COMPLETED Source: [place] 12:00 AM [facility] REPOSITORY Telephone (INTMWS) CARLOS BUCKNER ([id number]) 1960 M Date Time Provider Department 08/09/17 RICK CAMACHO INTMWS During your visit today, we recorded the following information about you: Rosa Teixeira RN 08/09/2017 12:22 PM Signed Patient's calling to find out status of PA for Jardiance 25 mg (increased dose). See TE 06/14/17. She is asking what he should do if he has to wait for approval. 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 She will contact him and have him call back. Rosa Lizama LPN 08/09/2017 12:59 PM Addendum Routing to PCP in regards to what to do while awaiting PA. We have not received anything from the pharmacy at this time. PA completed, however as we know, it can take a few days. PADGETT- [id number] Lili Camacho MD 08/09/2017 3:56 PM Signed ? Not really sure much we can do it she can't even get in touch with him. 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 Patient is aware. Thea Munoz PharmD, [facility] Allergies As of Date: 08/09/2017 Noted Allergy Reaction OYSTERS 06/30/2014 2 - Rash 9 - Itching Date Reviewed: 06/10/2017 Reviewed by: Pamela Jefferson LPN - Fully Assessed Reason for Visit: Medication Problem [509] Prescriptions as of 08/09/2017 Sig: EMPAGLIFLOZIN 25 MG TABLET Take 1 tablet by mouth once d* GLIMEPIRIDE 4 MG TABLET Take 1 tablet by mouth twice * BLOOD SUGAR DIAGNOSTIC STRIPS Test blood sugar(s) 2x daily.* ATORVASTATIN 80 MG TABLET Take 1 tablet by mouth once d* LISINOPRIL 2.5 MG TABLET Take 1 tablet by mouth once d* METFORMIN 1,000 MG TABLET Take 1 tablet by mouth twice * IBUPROFEN 200 MG CAPSULE Take 200 mg by mouth once gayle* BLOOD-GLUCOSE METER KIT Glucose Meter of Choice - Kit* LANCETS Test blood sugar(s) 2x daily.* COMPOUNDED PRESCRIPTION CPAP @ 8 cm of water with hum* Problem List As Of Date 08/09/2017 Noted Resolved Diabetes mellitus (HCC) [E11.9] INVALID FOR*06/30/2014 More... Hyperlipemia [E78.5] INVALID FOR* TEOFILO (obstructive sleep apnea) [G47.33] INVALID FOR* More... DM (diabetes mellitus), type 2, uncontrolled (H*INVALID FOR* Erectile dysfunction associated with type 2 amberly*INVALID FOR* Special screening for malignant neoplasms, colo*INVALID FOR*01/17/2015 Hypertriglyceridemia [E78.1] INVALID FOR* HTN (hypertension) [I10] INVALID FOR* Encounter Status:Closed by ALEXANDER (PHARMACIST)THEA on 08/10/17 [facility] Observed: 07/07/2017 Status: COMPLETED Source: [place] 12:00 AM [facility] REPOSITORY Telephone (MEWO) CARLOS BUCKNER ([id number]) 1960 M Date Time Provider Department 07/07/17 ALEXANDER (PHARMACIST)THEA During your visit today, we recorded the following information about you: SUNDAY COLE 07/07/2017 12:03 PM Signed PharmD called patient to check on tolerance of new medicine, Jardiance. Reports not having received the prescription from [facility]. PharmD called [facility], they had the script on hold and never filled it after the PA was approved. [facility]ron[facility]ai[facility] will fill script today. Called patient and let him know. F/u call in 2 weeks to check on tolerance. Thea Munoz PharmD, BCPS THEA MUNOZ PHARMACIST 07/23/2017 9:22 AM Signed PharmD called patient to check on tolerance of Jardiance. Patient has been taking Jardiance 10mg for about two weeks with no issues. No changes in sugars yet. Will increase to target dose 25mg daily and call in two weeks for update. A1c due July. Thea Munoz PharmD, BCPS THEA MUNOZ PHARMACIST 07/23/2017 9:22 AM Signed Addended by: ALEXANDER (PHARMACIST)THEA on: 07/23/2017 09:22 AM Modules accepted: Orders Allergies As of Date: 07/07/2017 Noted Allergy Reaction OYSTERS 06/30/2014 2 - Rash 9 - Itching Date Reviewed: 06/10/2017 Reviewed by: Pamela Jefferson LPN - Fully Assessed Reason for Visit: Medication Tolerance [Other] Cmt: Jardiance Order(s):empagliflozin (JARDIANCE) 25 mg tabletTake 1 tablet by mouth once daily.Disp: 90 tabletRfl: 3 Prescriptions as of 07/07/2017 Sig: EMPAGLIFLOZIN 25 MG TABLET Take 1 tablet by mouth once d* GLIMEPIRIDE 4 MG TABLET Take 1 tablet by mouth twice * BLOOD SUGAR DIAGNOSTIC STRIPS Test blood sugar(s) 2x daily.* ATORVASTATIN 80 MG TABLET Take 1 tablet by mouth once d* LISINOPRIL 2.5 MG TABLET Take 1 tablet by mouth once d* METFORMIN 1,000 MG TABLET Take 1 tablet by mouth twice * IBUPROFEN 200 MG CAPSULE Take 200 mg by mouth once gayle* BLOOD-GLUCOSE METER KIT Glucose Meter of Choice - Kit* LANCETS Test blood sugar(s) 2x daily.* COMPOUNDED PRESCRIPTION CPAP @ 8 cm of water with hum* Problem List As Of Date 07/07/2017 Noted Resolved Diabetes mellitus (HCC) [E11.9] INVALID FOR*06/30/2014 More... Hyperlipemia [E78.5] INVALID FOR* TEOFILO (obstructive sleep apnea) [G47.33] INVALID FOR* More... DM (diabetes mellitus), type 2, uncontrolled (H*INVALID FOR* Erectile dysfunction associated with type 2 amberly*INVALID FOR* Special screening for malignant neoplasms, colo*INVALID FOR*01/17/2015 Hypertriglyceridemia [E78.1] INVALID FOR* HTN (hypertension) [I10] INVALID FOR* Prescriptions ordered this encounter Disp Refills Start End EMPAGLIFLOZIN 25 MG TABLET 90 t* 3 07/23/2017 Route: ORAL Sig: Take 1 tablet by mouth once daily. Medications Discontinued During This Encounter empagliflozin (JARDIANCE) 10 mg tabl* 30 t* 0 06/10/2017 07/23/2017 Route: ORAL Sig: Take 1 tablet by mouth once daily. Disc: Reason for discontinue is not on file. Follow-up and Disposition History Recorded Encounter Status:Closed by ALEXANDER (PHARMACIST)THEA on 07/07/17 [facility] Observed: 06/14/2017 Status: COMPLETED Source: [place] 12:00 AM [facility] REPOSITORY [facility] CARLOS BUCKNER ([id number]) 1960 M Date Time Provider Department 06/14/17 RICK CAMACHO [facility] During your visit today, we recorded the following information about you: Lili Lizama LPN 06/14/2017 12:44 PM Signed Prior Authorization has been completed online at [employer] for Jardiance , will await response. Please keep encounter open until final decision has been received and documented from insurance company. Lili Lizama LPN 06/14/2017 4:09 PM Signed PA approved. Sent to scanning. Lili MUNOZ PHARMACIST 08/06/2017 1:07 PM Signed Patient called stating that increased dose of Jardiance 25mg is requiring another PA, even though 10mg was already approved. PharmD called [facility] and was told that fax for new PA was sent to PCP office on 08/04. Thank you, Thea Munoz, PharmD, BCPS Lili Lizama LPN 08/06/2017 1:27 PM Signed Will await new fax. Lili Lizama LPN Allergies As of Date: 06/14/2017 Noted Allergy Reaction OYSTERS 06/30/2014 2 - Rash 9 - Itching Date Reviewed: 06/10/2017 Reviewed by: Pamela Jefferson LPN - Fully Assessed Reason for Visit: Insurance Authorization [[id number]] Cmt: Jardiance Prescriptions as of 06/14/2017 Sig: GLIMEPIRIDE 4 MG TABLET Take 1 tablet by mouth twice * BLOOD SUGAR DIAGNOSTIC STRIPS Test blood sugar(s) 2x daily.* X EMPAGLIFLOZIN 10 MG TABLET Take 1 tablet by mouth once d* ATORVASTATIN 80 MG TABLET Take 1 tablet by mouth once d* LISINOPRIL 2.5 MG TABLET Take 1 tablet by mouth once d* METFORMIN 1,000 MG TABLET Take 1 tablet by mouth twice * IBUPROFEN 200 MG CAPSULE Take 200 mg by mouth once gayle* BLOOD-GLUCOSE METER KIT Glucose Meter of Choice - Kit* LANCETS Test blood sugar(s) 2x daily.* COMPOUNDED PRESCRIPTION CPAP @ 8 cm of water with hum* Problem List As Of Date 06/14/2017 Noted Resolved Diabetes mellitus (HCC) [E11.9] INVALID FOR*06/30/2014 More... Hyperlipemia [E78.5] INVALID FOR* TEOFILO (obstructive sleep apnea) [G47.33] INVALID FOR* More... DM (diabetes mellitus), type 2, uncontrolled (H*INVALID FOR* Erectile dysfunction associated with type 2 amberly*INVALID FOR* Special screening for malignant neoplasms, colo*INVALID FOR*01/17/2015 Hypertriglyceridemia [E78.1] INVALID FOR* HTN (hypertension) [I10] INVALID FOR* Encounter Status:Closed by LILI LIZAMA LPN on 06/14/17 HEPATIC FUNCTN PANEL Collected: 06/10/2017 Status: F Source: [place] 10:30 AM [facility] TYPE CODE TESTS RESULT OUT OF REFERENCE UNITS RANGE LAB ALB 3.9-4.9 g/dL Albumin 4.3 LAB TBIL 0.2-1.3 mg/dL Bilirubin, Total 0.5 LAB CBIL <0.2 mg/dL Bilirubin,Conjuga <0.2 shai LAB ALKP 36-108 U/L Alkaline Phosphatase 84 LAB AST 14-40 U/L AST 27 LAB ALT 10-54 U/L ALT 41 LAB TP 6.3-8.0 g/dL Protein, Total 7.2 Performed By: #### HFP, LIPB #### [facility] [address], [place] [address] LIPID PANEL, BASIC Collected: 06/10/2017 Status: F Source: [place] 10:30 AM [facility] REPOSITORY TYPE CODE TESTS RESULT OUT OF REFERENCE UNITS RANGE LAB TRIGLY 30-149 mg/dL Triglyceride High 304 LAB CHOL 100-199 mg/dL Cholesterol 119 LAB HDL >45 mg/dL Low HDL-Cholesterol 27 LAB VLDL 6-40 mg/dL VLDL High Cholesterol 61 LAB LDL 60-129 mg/dL Low LDL-Cholesterol 31 LAB FT hrs Fasting Time 2 LAB TCHDL 1.00-5.00 TC:HDL Ratio 4.41 LAB LDLHDL 0.50-3.55 LDL:HDL Ratio 1.15 LAB NONHDL 90-159 mg/dL Non HDL Cholesterol 92 Performed By: #### HFP, LIPB #### [facility] [address], [place] [address] PROGRESS Observed: 06/10/2017 Status: COMPLETED Source: [place] 9:30 AM [facility] REPOSITORY HNO ID: [id number] Author: Thea Munoz (Pharmacist) Service: (none) Author Type: Pharmacist Type: Progress Notes Filed: 06/11/2017 9:46 PM Note Text: Patient consents to pharmacy collaborative practice agreement. REASON FOR CONSULT: DM GOALS: A1c < 7% CONSULTING PROVIDER: Dr. Camacho Date of Consult: 04/2017 Carlos Buckner is a 56 year old male was last seen in [facility] by PCP, Dr. Camacho today. Patient is presenting today for initial pharmacotherapy management appointment for DM. At last PCP patient was continued on current regimen. 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 Patient denies CP, SOB, COLE, blurred vision, dizziness or lightheadedness ? Patient denies symptoms of hypoglycemia (sweating, anxiety, palpitations, hunger, and tremor) ? Patient denies symptoms of hyperglycemia (polyuria, polydipsia, polyphagia) ? 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 Breakfast: ? Lunch: chicken sandwiches instead of hamburger ? Dinner: protein vegetable ? Snacks: more veggies in the truck, raw almonds ? Following Na restrictions: no ? Beverages: diet mountain dew and diet dr lynch, water bottles (tries to drink 6 bottles before he gets to the pop) ? Exercise: no ? Tobacco: denies ? Alcohol: denies ? Illicits: denies MEDICATIONS: ? Pill bottles are not present. ? Adherence: denies missed doses. ? [facility]acy: [facility] ? Rx coverage: [place] ? Affordability: no issues ? Diabetes supplies: ? Organization System: pill box ACTIVE PROBLEM LIST Hyperlipemia Teofilo (Obstructive Sleep Apnea) Dm (Diabetes Mellitus), Type 2, Uncontrolled (Hcc) Erectile Dysfunction Associated With Type 2 Diabetes Mellitus (Hcc) Hypertriglyceridemia Htn (Hypertension) PAST MEDICAL HISTORY Diagnosis Date - HLD (hyperlipidemia) - HTN (hypertension) 06/10/2017 - Obstructive sleep apnea - Type II or unspecified type diabetes mellitus without mention of complication, not stated as uncontrolled ALLERGIES Allergen Reactions - Oysters Rash, Itching Current Outpatient Prescriptions: glimepiride (AMARYL) 4 mg tablet Take 1 tablet by mouth daily with breakfast. atorvastatin (LIPITOR) 80 mg tablet Take 1 tablet by mouth once daily. lisinopril 2.5 mg tablet Take 1 tablet by mouth once daily. metFORMIN (GLUCOPHAGE) 1,000 mg tablet Take 1 tablet by mouth twice daily with meals. Ibuprofen 200 mg cap Take 200 mg by mouth once daily. Blood-Glucose Meter monitoring kit Glucose Meter of Choice - Kit - Dx: Type 2 DM - Uncontrolled E11.65 (per insurance) blood sugar diagnostic (BLOOD GLUCOSE TEST) test strip Test blood sugar(s) 2x daily. Dx: E11.65. Insulin: No Lancets lancets Test blood sugar(s) 2x daily. Dx: E11.65. Insulin: No COMPOUNDED PRESCRIPTION CPAP @ 8 cm of water with humidification. Mask (per patient preference) optional chin strap (if indicated) , filters, tubing, humidifier and lifetime supplies. Dx. TEOFILO 327.23 No current facility-administered medications for this visit. Rx meds not listed in EPIC: none OTCs: none Herbals: none GLYCEMIC CONTROL: ? Glucometer present at visit: no ? SMBG?s: ? Reported 120-130s FBG, 200-250 ppbg's ? Hypoglycemia: denies ? On RA/ARB: Yes ? On Statin: Yes ? On ASA: No Last 3 Encounter BP Readings: Date: BP: 06/10/2017 134/82 01/20/2017 144/84 03/20/2016 140/74 Wt: 110.2 kg (243 lb) BMI: 36.95 kg/(m2) LABS Lab Results Component Value Date HBA1C 9.2 04/30/2017 HBA1C 9.3 01/20/2017 HBA1C 8.7 03/19/2016 CMP: Glucose 226 04/30/2017 BUN 16 04/30/2017 Creatinine 0.93 04/30/2017 Sodium 139 04/30/2017 Potassium 4.3 04/30/2017 Chloride 98 04/30/2017 CO2 25 04/30/2017 Protein, Total 7.3 04/30/2017 Albumin 4.3 04/30/2017 Calcium 9.5 04/30/2017 Alkaline Phosphatase 84 04/30/2017 Bilirubin, Total 0.3 04/30/2017 AST 36 04/30/2017 ALT 46 04/30/2017 Estimated Creatinine Clearance: 106.8 mL/min (based on Cr of 0.93). Last Lipid Panel Lab Results Component Value Date CHOL 161 04/30/2017 Lab Results Component Value Date HDL 30 04/30/2017 Lab Results Component Value Date LDL 71 04/30/2017 Lab Results Component Value Date TG 607 04/30/2017 Albumin/Creat Ratio (mg/g) Date Value 04/30/2017 25 PHARMACOTHERAPY ASSESSMENT/PLAN: 1. Uncontrolled type 2 diabetes mellitus with complication, unspecified custodial insulin use status (HCC) - ICD9: 250.92, ICD10: E11.8, E11.65 (primary diagnosis) A1c goal < 7%, patient is not at goal (9.2% on 04/30/17). Reported FBGs mostly at goal and PPBGs elevated. Patient compliant with and tolerating current regimen. Appropriate to increase glimepiride at this time. DPP-4 likely will not offer enough A1c reduction. Given patient has tried GLP-1 without success, will add SGLT-2 inhibitor to help with PPBGs. Goal is to avoid insulin. Renal fxn and LFTs WNL ? START empagliflozin 10mg once daily (after 1 month can titrate to 25mg daily) ? INCREASE glimepiride to 4mg BID ? CONTINUE metformin 1,000mg BID ? Instructed patient to continue checking BGs few times per week ? Eye exam: 01/20/17 ? Foot exam: 01/20/17 ? A1c in July Patient is scheduled to see PCP - will schedule for July. Patient to return to clinic for PharmD f/u in July. Telephone in July. Patient verbalized understanding of instructions. Thea Munoz, Mg, BCPS CNOV Observed: 06/10/2017 Status: COMPLETED Source: [place] 9:30 AM [facility] REPOSITORY Office Visit (PHMEWO) BUCKNERCARLOS Sanches Unique ([id number]) 1960 M Date Time Provider Department 06/10/17 9:30 AM ALEXANDER (PHARMACIST)THEA During your visit today, we recorded the following information about you: SUNDAY COLE 06/11/2017 9:46 PM Signed Patient consents to pharmacy collaborative practice agreement. REASON FOR CONSULT: DM GOALS: A1c ANDlt; 7% CONSULTING PROVIDER: Dr. Camacho Date of Consult: 04/2017 Carlos Calhoun is a 56 year old male was last seen in [facility] by PCP, Dr. Camacho today. Patient is presenting today for initial pharmacotherapy management appointment for DM. At last PCP patient was continued on current regimen. 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 Patient denies CP, SOB, COLE, blurred vision, dizziness or lightheadedness ? Patient denies symptoms of hypoglycemia (sweating, anxiety, palpitations, hunger, and tremor) ? Patient denies symptoms of hyperglycemia (polyuria, polydipsia, polyphagia) ? 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 Breakfast: ? Lunch: chicken sandwiches instead of hamburger ? Dinner: protein vegetable ? Snacks: more veggies in the truck, raw almonds ? Following Na restrictions: no ? Beverages: diet mountain dew and diet dr lynch, water bottles (tries to drink 6 bottles before he gets to the pop) ? Exercise: no ? Tobacco: denies ? Alcohol: denies ? Illicits: denies MEDICATIONS: ? Pill bottles are not present. ? Adherence: denies missed doses. ? [facility]acy: [facility] ? Rx coverage: [place] ? Affordability: no issues ? Diabetes supplies: ? Organization System: pill box ACTIVE PROBLEM LIST Hyperlipemia Teofilo (Obstructive Sleep Apnea) Dm (Diabetes Mellitus), Type 2, Uncontrolled (Hcc) Erectile Dysfunction Associated With Type 2 Diabetes Mellitus (Hcc) Hypertriglyceridemia Htn (Hypertension) PAST MEDICAL HISTORY Diagnosis Date - HLD (hyperlipidemia) - HTN (hypertension) 06/10/2017 - Obstructive sleep apnea - Type II or unspecified type diabetes mellitus without mention of complication, not stated as uncontrolled ALLERGIES Allergen Reactions - Oysters Rash, Itching Current Outpatient Prescriptions: glimepiride (AMARYL) 4 mg tablet Take 1 tablet by mouth daily with breakfast. atorvastatin (LIPITOR) 80 mg tablet Take 1 tablet by mouth once daily. lisinopril 2.5 mg tablet Take 1 tablet by mouth once daily. metFORMIN (GLUCOPHAGE) 1,000 mg tablet Take 1 tablet by mouth twice daily with meals. Ibuprofen 200 mg cap Take 200 mg by mouth once daily. Blood-Glucose Meter monitoring kit Glucose Meter of Choice - Kit - Dx: Type 2 DM - Uncontrolled E11.65 (per insurance) blood sugar diagnostic (BLOOD GLUCOSE TEST) test strip Test blood sugar(s) 2x daily. Dx: E11.65. Insulin: No Lancets lancets Test blood sugar(s) 2x daily. Dx: E11.65. Insulin: No COMPOUNDED PRESCRIPTION CPAP @ 8 cm of water with humidification. Mask (per patient preference) optional chin strap (if indicated) , filters, tubing, humidifier and lifetime supplies. Dx. TEOFILO 327.23 No current facility-administered medications for this visit. Rx meds not listed in EPIC: none OTCs: none Herbals: none GLYCEMIC CONTROL: ? Glucometer present at visit: no ? SMBG?s: ? Reported 120-130s FBG, 200-250 ppbg's ? Hypoglycemia: denies ? On RA/ARB: Yes ? On Statin: Yes ? On ASA: No Last 3 Encounter BP Readings: Date: BP: 06/10/2017 134/82 01/20/2017 144/84 03/20/2016 140/74 Wt: 110.2 kg (243 lb) BMI: 36.95 kg/(m2) LABS Lab Results Component Value Date HBA1C 9.2 04/30/2017 HBA1C 9.3 01/20/2017 HBA1C 8.7 03/19/2016 CMP: Glucose 226 04/30/2017 BUN 16 04/30/2017 Creatinine 0.93 04/30/2017 Sodium 139 04/30/2017 Potassium 4.3 04/30/2017 Chloride 98 04/30/2017 CO2 25 04/30/2017 Protein, Total 7.3 04/30/2017 Albumin 4.3 04/30/2017 Calcium 9.5 04/30/2017 Alkaline Phosphatase 84 04/30/2017 Bilirubin, Total 0.3 04/30/2017 AST 36 04/30/2017 ALT 46 04/30/2017 Estimated Creatinine Clearance: 106.8 mL/min (based on Cr of 0.93). Last Lipid Panel Lab Results Component Value Date CHOL 161 04/30/2017 Lab Results Component Value Date HDL 30 04/30/2017 Lab Results Component Value Date LDL 71 04/30/2017 Lab Results Component Value Date TG 607 04/30/2017 Albumin/Creat Ratio (mg/g) Date Value 04/30/2017 25 PHARMACOTHERAPY ASSESSMENT/PLAN: 1. 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 Reported FBGs mostly at goal and PPBGs elevated. Patient compliant with and tolerating current regimen. Appropriate to increase glimepiride at this time. DPP-4 likely will not offer enough A1c reduction. Given patient has tried GLP-1 without success, will add SGLT-2 inhibitor to help with PPBGs. Goal is to avoid insulin. Renal fxn and LFTs WNL ? START empagliflozin 10mg once daily (after 1 month can titrate to 25mg daily) ? INCREASE glimepiride to 4mg BID ? CONTINUE metformin 1,000mg BID ? Instructed patient to continue checking BGs few times per week ? Eye exam: 01/20/17 ? Foot exam: 01/20/17 ? A1c in July Patient is scheduled to see PCP - will schedule for July. Patient to return to clinic for PharmD f/u in July. Telephone in July. Patient verbalized understanding of instructions. Thea Munoz, PharmD, [facility] THEA MUNOZ PHARMACIST 06/10/2017 10:11 AM Signed Thanks for coming in today! Things we talked about: 1. Take metformin and glimepiride twice per day 2. Take the new Jardiance 10mg once per day 3. Check sugar few times per week Thea will call you in the next week or two Appointment in July, we'll talk about exact date Thank you, Thea Munoz, PharmD Referring Provider: RICK CAMACHO [[id number]] Allergies As of Date: 06/10/2017 Noted Allergy Reaction OYSTERS 06/30/2014 2 - Rash 9 - Itching Date Reviewed: 06/10/2017 Reviewed by: Pamela Jefferson LPN - Fully Assessed Reason for Visit: Allied Health Visit [5] Cmt: DM initial Primary Visit Diagnosis:Uncontrolled type 2 diabetes mellitus with complication, unspecified custodial insulin use status (HCC) [E11.8, E11.65] Other Visit Diagnoses:Essential hypertension [I10] Hypertriglyceridemia [E78.1] Order(s):empagliflozin (JARDIANCE) 10 mg tabletTake 1 tablet by mouth once daily.Disp: 30 tabletRfl: 0 glimepiride (AMARYL) 4 mg tabletTake 1 tablet by mouth twice daily with meals.Disp: 180 tabletRfl: 3 blood sugar diagnostic (BLOOD GLUCOSE TEST) test stripTest blood sugar(s) 2x daily. Dx: E11.65. Insulin: NoDisp: 100 StripRfl: 11 Prescriptions as of 06/10/2017 Sig: EMPAGLIFLOZIN 10 MG TABLET Take 1 tablet by mouth once d* GLIMEPIRIDE 4 MG TABLET Take 1 tablet by mouth twice * BLOOD SUGAR DIAGNOSTIC STRIPS Test blood sugar(s) 2x daily.* ATORVASTATIN 80 MG TABLET Take 1 tablet by mouth once d* LISINOPRIL 2.5 MG TABLET Take 1 tablet by mouth once d* METFORMIN 1,000 MG TABLET Take 1 tablet by mouth twice * IBUPROFEN 200 MG CAPSULE Take 200 mg by mouth once gayle* BLOOD-GLUCOSE METER KIT Glucose Meter of Choice - Kit* LANCETS Test blood sugar(s) 2x daily.* COMPOUNDED PRESCRIPTION CPAP @ 8 cm of water with hum* Problem List As Of Date 06/10/2017 Noted Resolved Diabetes mellitus (HCC) [E11.9] INVALID FOR*06/30/2014 More... Hyperlipemia [E78.5] INVALID FOR* TEOFILO (obstructive sleep apnea) [G47.33] INVALID FOR* More... DM (diabetes mellitus), type 2, uncontrolled (H*INVALID FOR* Erectile dysfunction associated with type 2 amberly*INVALID FOR* Special screening for malignant neoplasms, colo*INVALID FOR*01/17/2015 Hypertriglyceridemia [E78.1] INVALID FOR* HTN (hypertension) [I10] INVALID FOR* Other instructions from your clinician: Thanks for coming in today! Things we talked about: 1. Take metformin and glimepiride twice per day 2. Take the new Jardiance 10mg once per day 3. Check sugar few times per week Thea will call you in the next week or two Appointment in July, we'll talk about exact date Thank you, Thea Munoz, PharmD Prescriptions ordered this encounter Disp Refills Start End EMPAGLIFLOZIN 10 MG TABLET 30 t* 0 06/10/2017 07/10/2017 Route: ORAL Sig: Take 1 tablet by mouth once daily. GLIMEPIRIDE 4 MG TABLET 180 * 3 06/10/2017 Route: ORAL Sig: Take 1 tablet by mouth twice daily with meals. BLOOD SUGAR DIAGNOSTIC STRIPS 100 * 11 06/10/2017 Sig: Test blood sugar(s) 2x daily. Dx: E11.65. Insulin: No Medications Discontinued During This Encounter glimepiride (AMARYL) 4 mg tablet 90 t* 1 06/10/2017 06/10/2017 Route: ORAL Sig: Take 1 tablet by mouth daily with breakfast. Disc: Reason for discontinue is not on file. blood sugar diagnostic (BLOOD GLUCOS* 100 * 11 03/20/2016 06/10/2017 Sig: Test blood sugar(s) 2x daily. Dx: E11.65. Insulin: No Disc: Reason for discontinue is not on file. Follow-up and Disposition History Recorded Encounter Status:Closed by ALEXANDER (PHARMACIST)THEA on 06/11/17 PROGRESS Observed: 06/10/2017 Status: COMPLETED Source: [place] 8:55 AM [facility] REPOSITORY [facility] ID: [id number] Author: Rick Camacho Service: (none) Author Type: Physician Type: Progress Notes Filed: 06/10/2017 9:30 AM Note Text: Patient presents with: Physical Diabetes: seeing Thea today after Botines visit HPI: Patient presents today for office visit to establish and for physical. DM:not checking sugars. Sees pharmacy today. No hypoglycemic spells No polyuria or polydipsia HLD: no myalgias. Trigs were up and his Lipitor was increased recently. Will need to check labs in a while. TEOFILO: uses cpap nightly. Feels well. HYPERTENSION:added lisinopril. Feels well. No chest pain or shortness of breath . No edema . No palpitations. bp is better. Results for CARLOS BUCKNER ( ) as of 06/10/2017 08:58 Ref. Range 04/30/2017 08:33 04/30/2017 08:33 04/30/2017 08:34 Sodium Latest Ref Range: 136 - 144 mmol/L 139 Potassium Latest Ref Range: 3.7 - 5.1 mmol/L 4.3 Chloride Latest Ref Range: 97 - 105 mmol/L 98 CO2 Latest Ref Range: 22 - 30 mmol/L 25 BUN Latest Ref Range: 9 - 24 mg/dL 16 Creatinine Latest Ref Range: 0.73 - 1.22 mg/dL 0.93 Glucose Latest Ref Range: 74 - 99 mg/dL 226 (H) Protein, Total Latest Ref Range: 6.3 - 8.0 g/dL 7.3 Calcium Latest Ref Range: 8.5 - 10.2 mg/dL 9.5 Albumin Latest Ref Range: 3.9 - 4.9 g/dL 4.3 Bilirubin, Total Latest Ref Range: 0.2 - 1.3 mg/dL 0.3 Alkaline Phosphatase Latest Ref Range: 36 - 108 U/L 84 ALT Latest Ref Range: 10 - 54 U/L 46 AST Latest Ref Range: 14 - 40 U/L 36 Anion Gap Latest Ref Range: 9 - 18 mmol/L 16 eGFR- Unknown >60 eGFR-All Other Races Latest Units: . >60 Cholesterol Latest Ref Range: 100 - 199 mg/dL 161 Triglyceride Latest Ref Range: 30 - 149 mg/dL 607 (H) Fasting Time Latest Units: hrs 10 HDL Cholesterol Latest Ref Range: >45 mg/dL 30 (L) LDL Cholesterol Latest Ref Range: 60 - 129 mg/dL Unable to calcula... VLDL Cholesterol Latest Ref Range: 6 - 40 mg/dL Unable to calcula... 60 (H) TC:HDL Ratio Latest Ref Range: 1.00 - 5.00 5.37 (H) LDL:HDL Ratio Latest Ref Range: 0.50 - 3.55 Unable to calculate LDL Cholesterol, Direct Latest Ref Range: 60 - 129 mg/dL 71 Non HDL Cholesterol Latest Ref Range: 90 - 159 mg/dL 131 Hemoglobin A1C Latest Ref Range: 4.3 - 5.6 % 9.2 (H) Estimated Average Glucose Latest Units: mg/dL 217 Albumin/Creat Ratio Latest Ref Range: 0 - 30 mg/g 25 Creatinine, Ur Random (UCRR) Latest Ref Range: 20 - 300 mg/dL 151.7 Albumin, Urine Random Latest Ref Range: 0.0 - 23.0 mg/L 37.7 (H) MEDICATIONS: Current Outpatient Prescriptions: atorvastatin (LIPITOR) 80 mg tablet Take 1 tablet by mouth once daily. glimepiride (AMARYL) 2 mg tablet Take 1 tablet by mouth daily before dinner. lisinopril 2.5 mg tablet Take 1 tablet by mouth once daily. metFORMIN (GLUCOPHAGE) 1,000 mg tablet Take 1 tablet by mouth twice daily with meals. Ibuprofen 200 mg cap Take 200 mg by mouth once daily. glimepiride (AMARYL) 4 mg tablet Take 1 tablet by mouth daily with breakfast. Blood-Glucose Meter monitoring kit Glucose Meter of Choice - Kit - Dx: Type 2 DM - Uncontrolled E11.65 (per insurance) blood sugar diagnostic (BLOOD GLUCOSE TEST) test strip Test blood sugar(s) 2x daily. Dx: E11.65. Insulin: No Lancets lancets Test blood sugar(s) 2x daily. Dx: E11.65. Insulin: No COMPOUNDED PRESCRIPTION CPAP @ 8 cm of water with humidification. Mask (per patient preference) optional chin strap (if indicated) , filters, tubing, humidifier and lifetime supplies. Dx. TEOFILO 327.23 No current facility-administered medications for this visit. ALLERGIES: ALLERGIES Allergen Reactions - Oysters Rash, Itching PAST MEDICAL HISTORY Diagnosis Date - HLD (hyperlipidemia) - HTN (hypertension) 06/10/2017 - Obstructive sleep apnea - Type II or unspecified type diabetes mellitus without mention of complication, not stated as uncontrolled PAST SURGICAL HISTORY Procedure Laterality Date - COLONOSCOP W/ OR W/O [facility] SPEC 01/17/15 Colonoscopy - KIDNEY SURGERY HX - LITHOTRIPSY PROC UNILATERAL 2006 left side done in [place] - PAST SURGICAL HISTORY OF dog bite age 5 - PAST SURGICAL HISTORY OF chainsaw injury FAMILY HISTORY Problem Relation Age of Onset - polio [Other] [OTHER] Mother - Emphysema Father - Diabetes Maternal Grandfather - COPD Paternal Grandmother - COPD Paternal Grandfather Social History Marital status: Spouse name: ramana Years of education: Number of children: 2 Occupational History 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 13 and 15 in 2011 No TV in house Reviewed current medications, allergies, past medical history, surgical history, family history and social history today. REVIEW OF SYSTEMS GENERAL: No weight loss, malaise or fevers HEENT: Negative for frequent or significant headaches, No changes in hearing or vision, no nose bleeds or other nasal problems RESPIRATORY: Negative for cough, hemoptysis, wheezing, COPD, dyspnea or shortness of breath CARDIOVASCULAR: Negative for chest pain, leg swelling, hypertension, CHF or palpitations GI: No nausea, vomiting, or diarrhea : No history of dysuria, frequency or incontinence SKIN: Negative for lesions, rash, and itching All other reviewed and negative other than HPI. HEALTH MAINTENANCE: Reviewed health maintenance issues today and recommended the following in detail. DILATED RETINAL EXAM-had done. Will get records. INFLUENZA(1) due on 01/29/2017 VITALS: BP 134/82 Pulse 64 Resp 14 Ht 172.7 cm (5' 8) Wt 110.2 kg (243 lb) BMI 36.95 kg/m2 Last 4 Encounter Wt Readings: Date: Wt: 06/10/2017 110.2 kg (243 lb) 01/20/2017 108 kg (238 lb) 03/20/2016 110.7 kg (244 lb) 03/07/2016 111.3 kg (245 lb 6.4 oz) PHYSICAL EXAMINATION: General appearance: Well appearing, alert, in no acute distress, well-hydrated, well nourished. Skin: Skin color, texture, turgor normal, no suspicious rashes or lesions Head: Normocephalic, no masses, lesions, tenderness or abnormalities Eyes: Anicteric sclera. Pupils are equally round and reactive to light. Extraocular movements are intact. Ears: External ears normal, canals clear Nose/Sinuses: Nares normal, septum midline, mucosa normal, no drainage or sinus tenderness Oropharynx: Lips, mucosa, and tongue normal, teeth and gums normal, oropharynx normal Neck: Supple, no adenopathy; thyroid symmetric, normal size, no bruits Lungs: Lungs clear to auscultation. No wheezing, rhonchi, rales Heart: RRR without murmur, gallop, or rubs. No ectopy Abdomen: Normal abdominal exam, Abdomen soft, non-tender. Bowel sounds normal. No masses, organomegaly Extremities: No deformities, edema, skin discoloration, clubbing or cyanosis. Good capillary refill. ASSESSMENT/PLAN: 1. Well adult exam - ICD9: V70.0, ICD10: Z00.00 (primary diagnosis) - Follow up for annual exam in one year. 2. Essential hypertension - ICD9: 401.9, ICD10: I10 - good control - Continue current medication(s) - Goal of BP <140/90 3. Uncontrolled type 2 diabetes mellitus with complication, unspecified custodial insulin use status (HCC) - ICD9: 250.92, ICD10: E11.8, E11.65 poorly controlled - See pharmacy. Work on diet. - GLIMEPIRIDE 4 MG TABLET - HGB A1C 4. TEOFILO (obstructive sleep apnea) - ICD9: 327.23, ICD10: G47.33 - stable. 5. BMI 36.0-36.9,adult - ICD9: V85.36, ICD10: Z68.36 - watch diet. 6. Hyperlipidemia, unspecified hyperlipidemia type - ICD9: 272.4, ICD10: E78.5 - to be determined upon return of lab results - Continue current medication. - HEPATIC FUNCTION PNL - LIPID PANEL BASIC Rick Camacho MD RTO in three months and prn. CNOV Observed: 06/10/2017 Status: COMPLETED Source: [place] 8:40 AM [facility] REPOSITORY Office [facility] CARLOS BUCKNER ([id number]) 1960 M Date Time Provider Department 06/10/17 8:40 AM [facility] During your visit today, we recorded the following information about you: Pulse Respiration Blood pressure Weight 64/minute 14/minute 134/82 110.2 kg Height 1.727 m Rick Camacho MD 06/10/2017 9:30 AM Signed Patient presents with: Physical Diabetes: seeing Thea today after Lilly visit HPI: Patient presents today for office visit to establish and for physical. DM:not checking sugars. Sees pharmacy today. No hypoglycemic spells No polyuria or polydipsia HLD: no myalgias. Trigs were up and his Lipitor was increased recently. Will need to check labs in a while. TEOFILO: uses cpap nightly. Feels well. HYPERTENSION:added lisinopril. Feels well. No chest pain or shortness of breath . No edema . No palpitations. bp is better. Results for CARLOS BUCKNER ( ) as of 06/10/2017 08:58 Ref. Range 04/30/2017 08:33 04/30/2017 08:33 04/30/2017 08:34 Sodium Latest Ref Range: 136 - 144 mmol/L 139 Potassium Latest Ref Range: 3.7 - 5.1 mmol/L 4.3 Chloride Latest Ref Range: 97 - 105 mmol/L 98 CO2 Latest Ref Range: 22 - 30 mmol/L 25 BUN Latest Ref Range: 9 - 24 mg/dL 16 Creatinine Latest Ref Range: 0.73 - 1.22 mg/dL 0.93 Glucose Latest Ref Range: 74 - 99 mg/dL 226 (H) Protein, Total Latest Ref Range: 6.3 - 8.0 g/dL 7.3 Calcium Latest Ref Range: 8.5 - 10.2 mg/dL 9.5 Albumin Latest Ref Range: 3.9 - 4.9 g/dL 4.3 Bilirubin, Total Latest Ref Range: 0.2 - 1.3 mg/dL 0.3 Alkaline Phosphatase Latest Ref Range: 36 - 108 U/L 84 ALT Latest Ref Range: 10 - 54 U/L 46 AST Latest Ref Range: 14 - 40 U/L 36 Anion Gap Latest Ref Range: 9 - 18 mmol/L 16 eGFR- Unknown ANDgt;60 eGFR-All Other Races Latest Units: . ANDgt;60 Cholesterol Latest Ref Range: 100 - 199 mg/dL 161 Triglyceride Latest Ref Range: 30 - 149 mg/dL 607 (H) Fasting Time Latest Units: hrs 10 HDL Cholesterol Latest Ref Range: ANDgt;45 mg/dL 30 (L) LDL Cholesterol Latest Ref Range: 60 - 129 mg/dL Unable to calcula... VLDL Cholesterol Latest Ref Range: 6 - 40 mg/dL Unable to calcula... 60 (H) TC:HDL Ratio Latest Ref Range: 1.00 - 5.00 5.37 (H) LDL:HDL Ratio Latest Ref Range: 0.50 - 3.55 Unable to calculate LDL Cholesterol, Direct Latest Ref Range: 60 - 129 mg/dL 71 Non HDL Cholesterol Latest Ref Range: 90 - 159 mg/dL 131 Hemoglobin A1C Latest Ref Range: 4.3 - 5.6 % 9.2 (H) Estimated Average Glucose Latest Units: mg/dL 217 Albumin/Creat Ratio Latest Ref Range: 0 - 30 mg/g 25 Creatinine, Ur Random (UCRR) Latest Ref Range: 20 - 300 mg/dL 151.7 Albumin, Urine Random Latest Ref Range: 0.0 - 23.0 mg/L 37.7 (H) MEDICATIONS: Current Outpatient Prescriptions: atorvastatin (LIPITOR) 80 mg tablet Take 1 tablet by mouth once daily. glimepiride (AMARYL) 2 mg tablet Take 1 tablet by mouth daily before dinner. lisinopril 2.5 mg tablet Take 1 tablet by mouth once daily. metFORMIN (GLUCOPHAGE) 1,000 mg tablet Take 1 tablet by mouth twice daily with meals. Ibuprofen 200 mg cap Take 200 mg by mouth once daily. glimepiride (AMARYL) 4 mg tablet Take 1 tablet by mouth daily with breakfast. Blood-Glucose Meter monitoring kit Glucose Meter of Choice - Kit - Dx: Type 2 DM - Uncontrolled E11.65 (per insurance) blood sugar diagnostic (BLOOD GLUCOSE TEST) test strip Test blood sugar(s) 2x daily. Dx: E11.65. Insulin: No Lancets lancets Test blood sugar(s) 2x daily. Dx: E11.65. Insulin: No COMPOUNDED PRESCRIPTION CPAP @ 8 cm of water with humidification. Mask (per patient preference) optional chin strap (if indicated) , filters, tubing, humidifier and lifetime supplies. Dx. TEOFILO 327.23 No current facility-administered medications for this visit. ALLERGIES: ALLERGIES Allergen Reactions - Oysters Rash, Itching PAST MEDICAL HISTORY Diagnosis Date - HLD (hyperlipidemia) - HTN (hypertension) 06/10/2017 - Obstructive sleep apnea - Type II or unspecified type diabetes mellitus without mention of complication, not stated as uncontrolled PAST SURGICAL HISTORY Procedure Laterality Date - COLONOSCOP W/ OR W/O [facility] SPEC 01/17/15 Colonoscopy - KIDNEY SURGERY HX - LITHOTRIPSY PROC UNILATERAL 2006 left side done in [place] - PAST SURGICAL HISTORY OF dog bite age 5 - PAST SURGICAL HISTORY OF chainsaw injury FAMILY HISTORY Problem Relation Age of Onset - polio [Other] [OTHER] Mother - Emphysema Father - Diabetes Maternal Grandfather - COPD Paternal Grandmother - COPD Paternal Grandfather Social History Marital status: Spouse name: ramana Years of education: Number of children: 2 Occupational History 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 13 and 15 in 2011 No TV in house Reviewed current medications, allergies, past medical history, surgical history, family history and social history today. REVIEW OF SYSTEMS GENERAL: No weight loss, malaise or fevers HEENT: Negative for frequent or significant headaches, No changes in hearing or vision, no nose bleeds or other nasal problems RESPIRATORY: Negative for cough, hemoptysis, wheezing, COPD, dyspnea or shortness of breath CARDIOVASCULAR: Negative for chest pain, leg swelling, hypertension, CHF or palpitations GI: No nausea, vomiting, or diarrhea : No history of dysuria, frequency or incontinence SKIN: Negative for lesions, rash, and itching All other reviewed and negative other than HPI. HEALTH MAINTENANCE: Reviewed health maintenance issues today and recommended the following in detail. DILATED RETINAL EXAM-had done. Will get records. INFLUENZA(1) due on 01/29/2017 VITALS: BP 134/82 Pulse 64 Resp 14 Ht 172.7 cm (5' 8ANDquot;) Wt 110.2 kg (243 lb) BMI 36.95 kg/m2 Last 4 Encounter Wt Readings: Date: Wt: 06/10/2017 110.2 kg (243 lb) 01/20/2017 108 kg (238 lb) 03/20/2016 110.7 kg (244 lb) 03/07/2016 111.3 kg (245 lb 6.4 oz) PHYSICAL EXAMINATION: General appearance: Well appearing, alert, in no acute distress, well-hydrated, well nourished. Skin: Skin color, texture, turgor normal, no suspicious rashes or lesions Head: Normocephalic, no masses, lesions, tenderness or abnormalities Eyes: Anicteric sclera. Pupils are equally round and reactive to light. Extraocular movements are intact. Ears: External ears normal, canals clear Nose/Sinuses: Nares normal, septum midline, mucosa normal, no drainage or sinus tenderness Oropharynx: Lips, mucosa, and tongue normal, teeth and gums normal, oropharynx normal Neck: Supple, no adenopathy; thyroid symmetric, normal size, no bruits Lungs: Lungs clear to auscultation. No wheezing, rhonchi, rales Heart: RRR without murmur, gallop, or rubs. No ectopy Abdomen: Normal abdominal exam, Abdomen soft, non-tender. Bowel sounds normal. No masses, organomegaly Extremities: No deformities, edema, skin discoloration, clubbing or cyanosis. Good capillary refill. ASSESSMENT/PLAN: 1. Well adult exam - ICD9: V70.0, ICD10: Z00.00 (primary diagnosis) - Follow up for annual exam in one year. 2. Essential hypertension - ICD9: 401.9, ICD10: I10 - good control - Continue current medication(s) - Goal of BP ANDlt;140/90 3. 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 Work on diet. - GLIMEPIRIDE 4 MG TABLET - HGB A1C 4. TEOFILO (obstructive sleep apnea) - ICD9: 327.23, ICD10: G47.33 - stable. 5. BMI 36.0-36.9,adult - ICD9: V85.36, ICD10: Z68.36 - watch diet. 6. Hyperlipidemia, unspecified hyperlipidemia type - ICD9: 272.4, ICD10: E78.5 - to be determined upon return of lab results - Continue current medication. - HEPATIC FUNCTION PNL - LIPID PANEL BASIC Rick Camacho MD RTO in three months and prn. Referring Provider: SELF [200] Allergies As of Date: 06/10/2017 Noted Allergy Reaction OYSTERS 06/30/2014 2 - Rash 9 - Itching Date Reviewed: 06/10/2017 Reviewed by: Pamela Jefferson LPN - Fully Assessed Reason for Visit: Physical [83] Diabetes [34] Cmt: seeing Thea gilmore after Lilly visit Reason For Visit History Recorded Primary Visit Diagnosis:Well adult exam [Z00.00] Other Visit Diagnoses:Essential hypertension [I10] Uncontrolled type 2 diabetes mellitus with complication, unspecified custodial insulin use status (HCC) [E11.8, E11.65] TEOFILO (obstructive sleep apnea) [G47.33] BMI 36.0-36.9,adult [Z68.36] Hyperlipidemia, unspecified hyperlipidemia type [E78.5] Order(s):glimepiride (AMARYL) 4 mg tabletTake 1 tablet by mouth daily with breakfast.Disp: 90 tabletRfl: 1 HGB A1C [OZHOV5G] Order #: [id number] FUTURE HEPATIC FUNCTION PNL [SQHFP] Order #: [id number] FUTURE LIPID PANEL BASIC [SQLIPB] Order #: [id number] FUTURE Prescriptions as of 06/10/2017 Sig: GLIMEPIRIDE 4 MG TABLET Take 1 tablet by mouth daily * ATORVASTATIN 80 MG TABLET Take 1 tablet by mouth once d* LISINOPRIL 2.5 MG TABLET Take 1 tablet by mouth once d* METFORMIN 1,000 MG TABLET Take 1 tablet by mouth twice * IBUPROFEN 200 MG CAPSULE Take 200 mg by mouth once gayle* BLOOD-GLUCOSE METER KIT Glucose Meter of Choice - Kit* BLOOD SUGAR DIAGNOSTIC STRIPS Test blood sugar(s) 2x daily.* LANCETS Test blood sugar(s) 2x daily.* COMPOUNDED PRESCRIPTION CPAP @ 8 cm of water with hum* Problem List As Of Date 06/10/2017 Noted Resolved Diabetes mellitus (HCC) [E11.9] INVALID FOR*06/30/2014 More... Hyperlipemia [E78.5] INVALID FOR* TEOFILO (obstructive sleep apnea) [G47.33] INVALID FOR* More... DM (diabetes mellitus), type 2, uncontrolled (H*INVALID FOR* Erectile dysfunction associated with type 2 amberly*INVALID FOR* Special screening for malignant neoplasms, colo*INVALID FOR*01/17/2015 Hypertriglyceridemia [E78.1] INVALID FOR* HTN (hypertension) [I10] INVALID FOR* Prescriptions ordered this encounter Disp Refills Start End GLIMEPIRIDE 4 MG TABLET 90 t* 1 06/10/2017 Route: ORAL Sig: Take 1 tablet by mouth daily with breakfast. Medications Discontinued During This Encounter glimepiride (AMARYL) 2 mg tablet 30 t* 3 04/09/2017 06/10/2017 Route: ORAL Sig: Take 1 tablet by mouth daily before dinner. Disc: Reason for discontinue is not on file. glimepiride (AMARYL) 4 mg tablet 30 t* 11 03/20/2016 06/10/2017 Route: ORAL Sig: Take 1 tablet by mouth daily with breakfast. Disc: Reason for discontinue is not on file. Disposition: Return in about 3 months (around 09/08/2017). Follow-up and Disposition History Recorded Letter Text . [facility] AUTHORIZATION FOR THE RELEASE OF MEDICAL INFORMATION FROM OTHER HEALTHCARE FACILITIES [facility] [address], [place] [address] Name: Carlos Buckner Date of : 1960 [address] [place] [address] (home) Reason for Disclosure: Continuity of Care. Release Information From: Name of Provider/Facility: [address] Street: City: State: Zip: Fax: Phone: Release Information To: Office Receiving: Rick Camacho MD PLEASE FAX TO: [phone] I hereby authorize to release the health information indicated below that is contained in my patient records to the Recipient named above. I understand and acknowledge that this may include treatment for physical and mental illness, alcohol/drug abuse and or HIV/AIDS test results or diagnosis. This authorization does not include permission to release outpatient Psychotherapy Notes* as defined below. The release of Psychotherapy Notes requires a separate authorization. REPORTS REQUESTED: Diabetes Reports: Last Eye Exam This consent is subject to revocation at any time except to the extent the action has been taken thereon. This authorization and consent will in one year from the date of authorization written below. Your health care (or payment for care) will not be affected by whether or not you sign this authorization. Once your health care information is released, re-disclosure of your health care information by the Recipient my no longer be protected by law. Signature of Patient/Legal Guardian Printed Name Date Signed: ____/ / Relationship if not Patient If other than patient?s signature, a copy of the legal papers verifying authority (e.g. Power of Xm1 Tank Driver or Certificate) MUST accompany the authorization when presented. Exception: parent if signing for patient under age 18. *Psychotherapy Notes defined as notes that document private, joint, group or family counseling sessions that are from the rest of a patient?s medical record. Encounter Status:Closed by RICK CAMACHO MD on 06/10/17 ALLERGIES ALLERGIES DATE TYPE / CODE NAME / CODE REACTION SEVERITY SOURCE 04/26/2018 Drug shrimp/[id number] Rash Unknown [place] Allergy/416 (RXNORM) [facility] [id number]([facility] ED CT) Repository 04/26/2018 Drug oyster Rash Unknown [place] Allergy/416 extract/[id number] [place] [address]([facility]) Repository 03/19/2018 Drug SHELLFISH RASH [facility] Class/18047 CONTAINING Other [place] 1003(SNOMED PRODUCTS Repository CT) 06/30/2014 Food/[id number] OYSTERS RASH [facility] 000(SNOMED Other [place] CT) Repository NG/[id number] [facility] Repository NG/[id number] [place] [facility] 6(SNOMED [facility] CT) PRODUCTS Repository ENCOUNTERS ENCOUNTERS ADMIT/DISCHARGE ACCOUNT NUMBER ADMITTING ENCOUNTER LOCATION SOURCE CLASS 05/16/2018 [id number] Ambulatory BMSBuilding: [place] BMS.G [facility] Repository 05/16/2018 [id number] Ambulatory [facility] ding:CR Repository 05/13/2018 [id number] Ambulatory BMSBuilding: [facility] Repository 05/12/2018/05/12/20 [id number] Ambulatory [address] Other [place] Repository 05/12/2018/05/12/20 [id number] Ambulatory [place] [address] MEDICAL Repository CENTERBuildi ng:AGVASACC 05/03/2018 [id number] Ambulatory [place] [facility] MEDICAL Repository CENTERBuildi ng:AGVASACC 04/28/2018/05/06/20 [id number] [place] Inpatient [address] Repository 04/28/2018/05/06/20 [id number] Jessika ROSE Inpatient [place] [address] MEDICAL Repository GIPSYBuildi nRoom: 4208Bed: 04/28/2018/04/28/20 [id number] Ambulatory [address] Other [place] Repository 04/28/2018/04/28/20 [id number] Ambulatory [place] [address] MEDICAL Repository CENTERBuildi ng:AKUSB 04/28/2018/04/28/20 [id number] Ambulatory [address] Other [place] Repository 04/28/2018/04/28/20 [id number] Ambulatory [place] [address] MEDICAL Repository CENTERBuildi ng:AGVASACC 04/26/2018/04/26/20 [id number] Emergency [address] ding:ED Repository 04/19/2018 [id number] Ambulatory [facility] ding:CR Repository 04/12/2018/04/12/20 [id number] Ambulatory [address] Other [place] Repository 04/12/2018/04/12/20 [id number] Ambulatory [place] [address] MEDICAL Repository CENTERBuildi ng:AGVASACC 03/21/2018/04/05/20 [id number] DEBORAH, Inpatient [address] ([facility]) [facility] Other [place] Repository 03/21/2018/04/05/20 [id number] MD DEBORAH Inpatient [facility] [address] Encounter [facility] MEDICAL Repository CENTERBuildi ng:CVICRoom: 3237Bed: 01 03/19/2018/03/21/20 [id number] Earl, Inpatient Brittny [place] [address] Encounter [facility] ding:PCURoom Repository : LUB650Oza: 1 03/19/2018 [id number] Bhupinders, Ambulatory BMSBuilding: Brittny Marek F BMS.CF.[facility] Repository 03/19/2018 [id number] Sebastiantsonis, Ambulatory BMSBuilding: [place] Marek F BMS.[facility] Repository 03/19/2018 [id number] Sebastiantsonis, Ambulatory BMSBuilding: [place] Marek F BMS.[facility] Repository 03/19/2018 [id number] Sebastiantsonis, Ambulatory BMSBuilding: [place] Marek F BMS.CF.[facility] Repository 03/19/2018 [id number] Bhupinders, Ambulatory BMSBuilding: [place] Marek F BMS.[facility] Repository 03/19/2018 [id number] Sebastiantsonis, Ambulatory BMSBuilding: [place] Marek F BMS..[facility] Repository 06/10/2017/06/10/19 [id number] Ambulatory [address] Repository 06/10/2017/06/10/19 [id number] Ambulatory [address] Repository 06/10/2017/06/15/19 [id number] Ambulatory [address] Repository 05/21/2017/05/21/20 [id number] Ambulatory CD:[id number] Brad Hernández 17 9Building:CD Medical :[id number] Center Repository PAYERS PAYERS ENCOUNTER GUARANTOR PAYER SUBSCRIBER SOURCE 05/16/2018 CARLOS Calhoun Primary [id number] Insurance:GABY JOSHIEDOB: [facility] [id number] Hospital [address]Wqe: 330) PLANPolicy Number: Repository [phone] () [id number] Date:4895-72-56XF BOX Ne[address]ROX [address] [address]ZF: 05/16/2018 Secondary NOT GIVENUNK [place] Insurance:SELF PAY [facility] Number: Effective Repository Date:2018-05-16 05/16/2018 CARLOS Calhoun Primary CARLOS Calhoun Brittny [id number] Insurance:[place] POPEDOB: [facility] [id number] Hospital [address]Nww: (330) PLANPolicy Number: Repository [phone] () [id number] Date:4237-35-56TB [address] [facility] [place] [address]RQ: 05/16/2018 Secondary NOT GIVENUNK Britt[place] Insurance:SELF PAY [facility]: Effective Repository Date:2018-04-19 05/13/2018 CARLOS Calhoun Primary CARLOS Calhoun [place] [id number] Insurance:[place] POPEDOB: [facility] [id number] Hospital [address]Lre: (330) PLANPolicy Number: Repository [phone] () [id number] Date:8150-58-72PA [address] [facility]AD[address] [place] [address]HB: 05/13/2018 Secondary NOT GIVENUNK [place] Insurance:SELF PAY [facility] Number: Effective Repository Date:2018-05-13 05/12/2018 CARLOS Calhoun Primary CARLOS Calhoun [facility] POPEDOB: Insurance:[place] CHP POPEDOB: [facility] N MEDICAIDPolicy [id number] Repository [address] [facility] [place] [id number]: (330) Date: (HP) 05/03/2018 CARLOS Calhoun Primary CARLOS Calhoun [facility] POPEDOB: Insurance:[place] CHP POPEDOB: [facility] N MEDICAIDPolicy [id number] Repository [address] [facility] [place] [id number] [id number]: (330) Date: 421 (HP) 04/28/2018 CARLOS Calhoun Primary CARLOS Calhoun [facility] POPEDOB: Insurance:[place] CHP POPEDOB: [facility] N MEDICAIDPolicy [id number] Repository [address] Number: [place] [id number] [address]Ron: (330) Date: (HP) 04/28/2018 CARLOS Calhoun Primary CARLOS Calhoun [facility] POPEDOB: Insurance:[place] CHP POPEDOB: [facility] N MEDICAIDPolicy [id number] Repository [address] Number: [place] [id number]: (330) Date: (HP) 04/28/2018 CARLOS Calhoun Primary CARLOS Calhoun [facility] POPEDOB: Insurance:[place] CHP POPEDOB: [facility] N MEDICAIDPolicy [id number] Repository [address] Number: [place] [id number]: (330) Date: (HP) 04/26/2018 CARLOS Calhoun Primary CARLOS Calhoun Brittny [id number] Insurance:[place] POPEDOB: [facility] [id number] Hospital [address]Gty: (330) PLANPolicy Number: Repository [phone] () [id number] Date:0720-00-00JO [address] [address]PE: 04/26/2018 Secondary NOT GIVENUNK [place] Insurance:SELF PAY [facility] Number: Effective Repository Date:2018-04-26 04/19/2018 CARLOS Calhoun Primary CARLOS Calhoun Brittny [id number] Insurance:[place] POPEDOB: [facility] [id number] Hospital [address]15[address]Cbi: (330) PLANPolicy Number: Repository [phone] () [id number] Date:0752-45-95QP [address] [address]LN: 04/19/2018 Secondary NOT GIVENUNK Brittny Insurance:SELF PAY [facility] Number: Effective Repository Date:2018-04-13 04/12/2018 CARLOS Calhoun Primary CARLOS Calhoun [facility] POPEDOB: Insurance:[place] CHP POPEDOB: [facility] N MEDICAIDPolicy [id number] Repository [address] [facility] [place] [id number]: (330) Date: (HP) 03/21/2018 CARLOS Calhoun Primary CARLOS Calhoun [facility] POPEDOB: Insurance:[place] CHP POPEDOB: [facility] N MEDICAIDPolicy [id number] Repository [address] Number: [place] [id number] [address]Eay: (330) Date: (HP) 03/19/2018 CARLOS Calhoun Primary CARLOS Calhoun [place] [id number] Insurance:[place] POPEDOB: [facility] [id number] Hospital [address]Oec: (330) PLANPolicy Number: Repository [phone] () [id number] Date:0596-28-76AP [address] [place] [address]QB: 03/19/2018 Secondary NOT GIVENUNK [place] Insurance:SELF PAY [facility] Number: Effective Repository Date:2018-03-19 03/19/2018 CARLOS Calhoun Primary CARLOS Calhoun Brittny [id number] Insurance:[place] POPEDOB: [facility] [id number] Hospital [address]39[address]Qrb: (330) PLANPolicy Number: Repository [phone] () [id number] Date:3425-71-93MF [address] [place] [address]WQ: 03/19/2018 Secondary NOT GIVENUNK [place] Insurance:SELF PAY [facility] Number: Effective Repository Date:2018-03-19 03/19/2018 CARLOS Calhoun Primary CARLOS Calhoun Brittny [id number] Insurance:[place] POPEDOB: [facility] [id number] Hospital 230[address]Ilk: (330) PLANPolicy Number: Repository [phone] () [id number] Date:2295-24-47PH [address] [place] [address] 50694PF: 03/19/2018 Secondary NOT GIVENUNK [place] Insurance:SELF PAY [facility] Number: Effective Repository Date:2018-03-19 03/19/2018 CARLOS Calhoun Primary CARLOS Calhoun Brittny [id number] Insurance:[place] POPEDOB: [facility] [id number] Hospital [address]Bsu: (330) PLANPolicy Number: Repository [phone] () [id number] Date:4298-70-30OH [address] [place] [address]HZ: 03/19/2018 Secondary NOT GIVENUNK [place] Insurance:SELF PAY [facility] Number: Effective Repository Date:2018-03-19 03/19/2018 CARLOS Calhoun Primary CARLOS Calhoun [place] [id number] Insurance:[place] POPEDOB: [facility] [id number] Hospital [address]18[address]Crg: (330) PLANPolicy Number: Repository [phone] () [id number] Date:9211-23-98QQ [address] [place] [address] 08275NR: 03/19/2018 Secondary NOT GIVENUNK [place] Insurance:SELF PAY [facility] Hospital Number: Effective Repository Date:2018-03-19 03/19/2018 CARLOS Calhoun Primary CARLOS Calhoun [place] [id number] Insurance:[place] POPEDOB: [facility] [id number] Hospital 27[address]Njj: (330) PLANPolicy Number: Repository [phone] () [id number] Date:2762-41-07VO [address] [place] [address] 650[address]HR: 03/19/2018 Secondary NOT GIVENUNK [place] Insurance:SELF PAY [facility] Number: Effective Repository Date:2018-03-19 03/19/2018 CARLOS Calhoun Primary CARLOS Calhoun Brittny [id number] Insurance:[place] POPEDOB: [facility] [id number] Hospital [address]Bwg: 330) PLANPolicy Number: Repository [phone] () [id number] Date:2580-41-18YT [address] [place] [address] [id number]: 03/19/2018 Secondary NOT GIVENUNK [place] Insurance:SELF PAY [facility] Number: Effective Repository Date:2018-03-19
== END 2018-04-26 21:59 | disposition home or self-care (01) ==
PROVIDERS: Emergency Provider Emergency Medicine; Family Provider Family Medicine; PCP Family Medicine
DX: L03.116 Cellulitis of left lower limb (principal); I25.10 Atherosclerotic heart disease of native coronary artery without angina pectoris; E11.9 Type 2 diabetes mellitus without complications; I10 Essential (primary) hypertension; I25.2 Old myocardial infarction; Z79.4 Long term (current) use of insulin; Z79.82 Long term (current) use of aspirin; Z79.891 Long term (current) use of opiate analgesic; Z79.899 Other long term (current) drug therapy; Z95.1 Presence of aortocoronary bypass graft
CPT/HCPCS: 99282

== ENCOUNTER 2018-05-19 15:17 | Outpatient (RCR) | payer MEDICAID, SELFPAY | END 2018-05-30 23:59 | LOC: DC 15:17 | PROVIDERS: Family Provider Family Medicine; PCP Family Medicine; Visit Provider Family Medicine | DX: E11.9 Type 2 diabetes mellitus without complications (principal); I25.10 Atherosclerotic heart disease of native coronary artery without angina pectoris; E78.5 Hyperlipidemia, unspecified; I10 Essential (primary) hypertension; Z71.3 Dietary counseling and surveillance | CPT/HCPCS: G0108 ==

== ENCOUNTER 2018-05-30 14:15 | Outpatient (RCR) | payer MEDICAID, SELFPAY ==
[2018-04-19 12:06] VITALS: BMI 35.7
== END 2018-05-30 23:59 ==
LOC: CR 14:15
PROVIDERS: Family Provider Family Medicine; PCP Family Medicine
DX: Z95.1 Presence of aortocoronary bypass graft (principal)
CPT/HCPCS: 93798

== ENCOUNTER 2018-06-23 14:00 | Outpatient (RCR) | payer MEDICAID, SELFPAY ==
[2018-05-26 13:53] VITALS: BMI 31.9
== END 2018-06-30 23:59 ==
LOC: DC 14:00
PROVIDERS: Family Provider Family Medicine; Visit Provider Family Medicine
DX: E11.9 Type 2 diabetes mellitus without complications (principal); I25.10 Atherosclerotic heart disease of native coronary artery without angina pectoris; E78.5 Hyperlipidemia, unspecified; I10 Essential (primary) hypertension; Z71.3 Dietary counseling and surveillance
CPT/HCPCS: 97802; G0108

== ENCOUNTER 2018-06-27 14:15 | Outpatient (RCR) | payer MEDICAID, SELFPAY ==
[2018-05-26 13:53] VITALS: BMI 31.9
--- NOTE | 2018-06-08 12:39 | PCM.CR.ITP ---
Exercise - 30-day Assessment - Visit Date of Eval: 06/08/18 Session #:: 11 - Stages of Change Stages of Change:: Action - Exercise Prescription Mode:: NuStep Frequency (x/week): 3 - Patient limited due to open wound on lower extremety that is healing. Unable to do treadmill or weight bearing exercise at this time. Duration:: 30-45 min METs - Progression: 0.5-1 MET as tolerated: 3.5 Target Heart Rate:: 114-122 max HR 93 - Hypertension Resting Blood Pressure:: 122/56 Peak Exercise Blood Pressure:: 142/70 Medication Changes:: No - Intervention Home Exercise/Activity Goal:: Sitting Time <3 hrs/day - Education Goals:: Warm-up, RPE HUMBLE Scale, S/S, Safe Exercise, Self-Monitoring - Exercise Program Goals Exercise Program Goals: Aerobic Activity >30 min Nutrition - Initial Assessment - Program Goals Nutrition Program Goals: LDL <70. Total Cholesterol <200. HDL >45. Triglycerides <150. HgbA1C <7%. BMI <25 - Diabetes Do you monitor your blood sugar at home?: Yes Nutrition - 30-Day Assessment - Program Goals Nutrition Program Goals: LDL <70. Total Cholesterol <200. HDL >45. Triglycerides <150. HgbA1C <7%. BMI <25 - Visit Date of Eval: 06/08/18 - Stages of Change Stages of Change:: Action - Lipids Has the patient seen the dietitian?: No - Diabetes Diabetes:: Yes Insulin: No Non-Insulin Dependent?: Yes - metformin and jardiance - Weight Management Weight:: 221 lb - Intervention Referral to dietitian:: Yes Referral to Diabetic Clinic:: Yes - Education Attended class for:: Signs & symptoms of hypoglycemia, Signs & symptoms of hyperglycemia, Relate diabetes to coronary artery disease, Healthy eating Tobacco - Initial Assessment - Program Goals Tobacco Program Goals: Complete smoking cessation. Attend education classes. Improve Knowledge Test score - Learning Barriers Learning Barriers: Ready to Learn Tobacco - 30-Day Assessment - Program Goals Tobacco Program Goals: Complete smoking cessation. Attend education classes. Improve Knowledge Test score - Stage of Change Stages of Change:: Action - Learning Barriers Learning Barriers: Participates in education - Family Support Do you have family support?: Yes - Tobacco Use Tobacco Use: Non-smoker Do you use smokeless tobacco?: No - Intervention Smoking Cessation Referral:: No Education Schedule Given:: Yes - Education Attended class for:: Coronary artery disease, Risk factors, Sexuality, Medical compliance, Cardiac A&P, Angina signs & symptoms Psychosocial - Initial Assess - Target Goals Target Goals: Assess presence or absence of depression. Using a valid screening tool, maximizes coping skills. Positive support system - Psychosocial Test Tool Used:: HANDS Depression Questionnaire - Assistive Devices Fall Risk Assessed:: Yes Psychosocial - 30-Day Assess - Target Goals Target Goals: Assess presence or absence of depression. Using a valid screening tool, maximizes coping skills. Positive support system - Stages of Change Stages of Change:: Action - Psychosocial Test Tool Used:: HANDS Depression Questionnaire - Intervention PS - Interventions: Yes Attend Stress Management Classes, Yes Uses Stress Management Skills, No Referral to Mental Health, No Referral to [facility] Case Management, No Referral to Physician - Education Attended classes for:: Coping techniques, Signs & symptoms of depression, Stress management, Relaxation techniques - Patient/Program Goal Preventative Medication(s):: Aspirin, Clopidogrel, Beta hector, Statin/lipid - Assistive Devices Assistive Devices:: None Fall Risk Assessed:: Yes Patient Health Questionnaire 30-Day Re-eval Assessment 1. Little interest or pleasure in doing things: Not at all 2. Feeling down, depressed, or hopeless: Not at all 3. Trouble falling or staying asleep, or sleeping too much: Nearly every day 4. Feeling tired or having little energy: Several days 5. Poor appetite or overeating: Not at all 6. Feeling bad about yourself -- or that you are a failure or have let yourself or your family down: Several days 7. Trouble concentrating on things, such as reading the newspaper or watching television: Several days 8. Moving or speaking so slowly that other people could have noticed. Or the opposite - being so fidgety or restless that you have been moving around a lot more than usual: Not at all 9. Thoughts that you would be better off , or of hurting yourself in some way: Not at all How difficult have these problems made it for you to do your work, take care of things at home, or get along with other people?: Somewhat difficult Total Score: 6 Self-Efficacy 30-Day Re-eval Assessment We would like to know how confident you are in doing certain activities. Please select your confidence level for:: Select your confidence level for the following using the scale 1-10 where 1 is not at all confident and 10 is totally confident. Your score is the average of all 6 responses. Fatigue: How confident are you that you can keep the fatigue caused by your disease from interfering with the things you want to do? Select Number: 8 Physical Discomfort or Pain: How confident are you that you can keep the physical discomfort or pain of your disease from interfering with the things you want to do? Select Number: 6 Emotional Distress: How confident are you that you can keep the emotional distress caused by your disease from interfering with the things you want to do? Select Number: 9 Other Symptoms or Health Problems: How confident are you that you can keep other symptoms or health problems from interfering with the things you want to do? Select Number: 9 Different Tasks and Activities: How confident are you that you can do the different tasks and activities needed to manage your health condition so as to reduce your need to see a doctor? Select Number: 10 Medication: How confident are you that you can do things other than just taking medication to reduce how much your illness affects your everyday life? Select Number: 10 Total Score:: 8
[2018-06-08 12:45] VITALS: BP 122/56; BP 142/70
== END 2018-06-30 23:59 ==
LOC: CR 14:15
PROVIDERS: Family Provider Family Medicine
DX: Z95.1 Presence of aortocoronary bypass graft (principal)
CPT/HCPCS: 93798

== ENCOUNTER 2018-06-29 08:46 | Emergency (ER) | payer MEDICAID, SELFPAY ==
[2018-05-26 13:53] VITALS: BMI 31.9
[2018-06-29 08:47] VITALS: BP 123/55; PULSE 61; RESP 16; TEMP 37; O2SAT 98; BMI 33.3
--- NOTE | 2018-06-29 09:00 | EKG12_ITS ---
Test Reason : CP Blood Pressure : / mmHG Vent. Rate : 057 BPM Atrial Rate : 057 BPM P-R Int : 182 ms QRS Dur : 088 ms QT Int : 430 ms P-R-T Axes : 041 084 066 degrees QTc Int : 418 ms Sinus bradycardia with sinus arrhythmia Otherwise normal ECG Confirmed by DELON ISRAEL, RADHA ([id number]), acquisition editor SABRINA DEVLIN ([id number]) on 07/01/2018 3:11:03 PM Referred By: Mio Abdi Confirmed By:RADHA JERNIGAN MD
--- NOTE | 2018-06-29 09:02 | ED.VISSUMM ---
- ER Visit Summary Date of Service: 06/29/18 Chief Complaint: Chest pain History of Present Illness: The patient is a 57 M with right side chest pain. Symptoms started this morning after he woke up and started his normal morning routine. Nothing seemed to bring it on. It came on fairly suddenly. The pain has been a constant dull pain but he has intermittent sharp pains in his right chest that radiated into his right back and right shoulder. Symptoms are worse with moving and deep breathing. He took aspirin and his normal medications this morning. Nothing seems to make his symptoms better. No other associated symptoms like shortness of breath, cough, fever, sweats, nausea, vomiting, or neurologic symptoms. Patient never had this pain before. 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 He has been compliant with his medications. Denies any history of PE or DVT. Denies any leg swelling or travel. Denies any history of aortic disease. Denies trauma. 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 Physical Examination: Afebrile and vital signs unremarkable. Patient is alert and oriented. No acute distress. Chest nontender. Heart regular rate and rhythm. Lungs clear. Abdomen soft. Skin, calves, pulses unremarkable. Test Results: EKG shows sinus rhythm at a rate of 57. No sign of acute ischemia or infarction pattern. Chest x-ray and labs pending. Emergency Department Course and Treatment: On arrival, EKG done as above. Patient placed on a monitor. Treated with aspirin. Will check labs and chest x-ray. Chest x-ray showed borderline cardiomegaly but was otherwise unremarkable. White count 4.2 and hemoglobin 11.6. White count similar to previous, but hemoglobin slightly anemic from his baseline. Glucose 161. Troponin normal. D-dimer slightly elevated 0.58. CTA showed no evidence of PE or dissection. On reevaluation, patient is stable, resting comfortably. Vitals normal. I spoke with Dr. Rodriguez. It seems that the patient's pain is very atypical for ACS. After discussion with Dr. Rodriguez, I will repeat his EKG and troponin after 3 hours. If they are normal, he will be discharged to follow-up in the office. Treatment Plan: As above Disposition: Discharge Impression: 1. Right side chest pain This note was generated with Dragon dictation software. It may contain incorrect words, spelling, and punctuation that were not noted in review of the chart prior to signing ED Disposition - Plan for ED Patient: Chief Complaint: Chest Pain Referrals: Rick Carr MD [Primary Care Provider] -
--- NOTE | 2018-06-29 09:05 | RAD_ITS ---
STUDY: X-RAY CHEST REASON FOR EXAM: Male, 57 years old. Chest pain. TECHNIQUE: Single AP portable view of the chest. COMPARISON: Comparison is made with prior study dated March 19, 2018. FINDINGS: The lungs are clear and expanded. There is no demonstrated pleural abnormality. Sternal cerclage wires and vascular clips are present from a prior sternotomy and coronary artery bypass graft procedure (CABG). Borderline cardiomegaly. Normal mediastinum and amanda. Normal visualized pulmonary arteries. Normal visualized aortic arch and descending thoracic aorta. Normal visualized thoracic spine. Normal visualized ribs, clavicles, and shoulders. There is no demonstrated abnormality of the visualized soft tissue structures of the upper abdomen. RAD/Chest 1 View (Portable) IMPRESSION: Borderline cardiomegaly. No acute abnormality is seen. Electronically Signed: Anthony Caldwell MD at 9:22 EST , Service support ,
[2018-06-29] MEDS: Aspirin 81 MG TAB.CHEW 324 MG PO (09:15)
[2018-06-29 09:16] VITALS: O2SAT 100
[2018-06-29 09:18] LABS: Absolute Lymphocyte Count 0.68 X10^3/ul (0.83-4.51); Absolute Neutrophil Count 2.8 X10^3/uL (2.0-7.7); Basophil# 0.02 X10^3/uL; Basophil% 0.5 % (0-1); Eosinophil# 0.12 X10^3/uL; Eosinophils% 2.9 % (0-5); Hematocrit 36.4 % (40-54); Hemoglobin 11.6 g/dl (13.0-16.5); Lymphocyte # 0.68 X10^3/ul (4.0); Lymphocyte % 16.3 % (19-41); Mean Corp Hgb Conc 31.9 g/gl (32-36); Mean Corpuscular Volume 87.7 fL (80-94); Monocyte# 0.53 X10^3/uL; Monocyte% 12.7 % (0-10); Neutrophil # 2.82 X10^3/uL (2.7-7.7); Neutrophil % 67.6 % (47-70); Platelet Count 160 K/mm3 (150-450); RBC Distribution Width CV 14.2 % (11.6-14.6); RBC Distribution Width SD 45.5 fl (35.1-43.9); Red Blood Count 4.15 M/mm3 (4.6-6.2); White Blood Count 4.2 K/mm3 (4.4-11.0)
[2018-06-29 09:20] LABS: POSITIVE COUNT NO; POSITIVE DIFFERENTIAL NO; POSITIVE MORPHOLOGY NO
[2018-06-29 09:31] LABS: Anion Gap 8 (5-15); BUN 15 mg/dL (7-18); BUN/Creat Ratio 16.5 RATIO (10-20); Calcium,Total 8.9 mg/dL (8.5-10.1); Chloride 105 mmol/L (98-107); Creatinine, Serum 0.91 mg/dL (0.70-1.30); D-Dimer Quantitative (DVT/PE) 0.58 FEU/ug/m (0.27-0.49); EST Glomerular Filtration Rate 91 mL/min (>60); Est Glom Filt Rate - Afr Amer 111 mL/min (>60); Estimated Creatinine Clearance 89.56 ml/min; Glucose 161 mg/dL (74-106); Potassium 3.9 mmol/L (3.5-5.1); Sodium Level 137 mmol/L (136-145)
--- NOTE | 2018-06-29 09:32 | ED.RN ---
d.dimer 0.58
--- NOTE | 2018-06-29 09:35 | CT_ITS ---
STUDY: CTA CHEST REASON FOR EXAM: Male, 57 years old. Right-sided chest pain with radiation to the shoulder. RADIATION DOSAGE (If Supplied By Facility): CTDIvol = ( 14.67 ) mGy, DLP = ( 738.02 ) mGycm TECHNIQUE: The examination was performed with the intravenous administration of 100mL ml of Isovue 370 contrast material. Post-processing of the angiographic images was performed, with multiplanar reformation and 3D reconstruction. Individualized dose optimization techniques were used for this CT. COMPARISON: Comparison is made with prior chest radiograph done earlier in the day. FINDINGS: Normal enhancement of the main pulmonary artery and right and left pulmonary arteries. Normal enhancement of the bilateral peripheral pulmonary arteries. There is no demonstrated pulmonary embolism. Normal thoracic aorta and visualized great vessels. There is no demonstrated aortic dissection. Sternal cerclage wires and vascular clips are present from a prior sternotomy and coronary artery bypass graft procedure (CABG). There are calcifications of the coronary arteries. Normal mediastinum. Normal hilar regions. Normal visualized trachea and bronchi. The lungs are well expanded. Minimal degree of increased markings in the lingular segment of the left upper lobe suggestive of mild degree of scarring. There is thickening of the left major fissure. Normal chest wall structures. Demineralization of the thoracic vertebrae. This is more pronounced in the mid and lower vertebrae. There are degenerative changes of thoracic spine. Multiple nonobstructive bilateral intrarenal calculi. CT/CTA Chest W/WO Contrast IMPRESSION: Normal CTA chest examination, without a demonstrated pulmonary embolism or arterial dissection. Findings suggest mild scarring in the anterior aspect of the lingular segment of the left upper lobe. Electronically Signed: Anthony Caldwell MD at 10:14 EST , Service support ,
--- NOTE | 2018-06-29 10:31 | ED.DEP ---
ED Disposition - Plan for ED Patient: Chief Complaint: Chest Pain Instructions: ED Chest Pain Atypical Unkn Cause Referrals: Vlad Rodriguez MD [STAFF PHYSICIAN] - As soon as possible
[2018-06-29 10:55] VITALS: BP 121/73; PULSE 77; RESP 17; O2SAT 98
--- NOTE | 2018-06-29 12:00 | EKG12_ITS ---
Test Reason : CP REPEAT Blood Pressure : / mmHG Vent. Rate : 068 BPM Atrial Rate : 068 BPM P-R Int : 210 ms QRS Dur : 086 ms QT Int : 424 ms P-R-T Axes : 057 070 085 degrees QTc Int : 450 ms Sinus rhythm with 1st degree A-V block Otherwise normal ECG Confirmed by DELON ISRAEL, RADHA ([id number]), editorial project manager SABRINA DEVLIN ([id number]) on 07/01/2018 3:11:22 PM Referred By: Mio Abdi Confirmed By:RADHA JERNIGAN MD
[2018-06-29 12:18] VITALS: BP 131/78; PULSE 73; RESP 18; O2SAT 99
[2018-06-29 13:00] VITALS: BP 131/78; PULSE 66; RESP 21; O2SAT 97
== END 2018-06-29 13:05 | disposition home or self-care (01) ==
PROVIDERS: Emergency Provider Emergency Medicine; Family Provider Family Medicine; PCP Family Medicine
DX: R07.9 Chest pain, unspecified (principal); R74.9 Abnormal serum enzyme level, unspecified; I25.10 Atherosclerotic heart disease of native coronary artery without angina pectoris; E11.9 Type 2 diabetes mellitus without complications; I10 Essential (primary) hypertension; D64.9 Anemia, unspecified; I25.2 Old myocardial infarction; Z95.1 Presence of aortocoronary bypass graft; Z79.02 Long term (current) use of antithrombotics/antiplatelets; Z79.82 Long term (current) use of aspirin; Z79.4 Long term (current) use of insulin; Z79.891 Long term (current) use of opiate analgesic; Z79.899 Other long term (current) drug therapy
CPT/HCPCS: 71045; 71275; 80048; 84484; 85025; 85379; 93005; 99285; Q9967; A4216

== ENCOUNTER 2018-07-13 18:30 | Outpatient (RCR) | payer MEDICAID, SELFPAY ==
[2018-07-01 00:51] VITALS: BMI 31.9
== END 2018-07-28 23:59 ==
LOC: DC 18:30
PROVIDERS: Family Provider Family Medicine; Visit Provider Family Medicine
DX: E11.9 Type 2 diabetes mellitus without complications (principal); I25.10 Atherosclerotic heart disease of native coronary artery without angina pectoris; E78.5 Hyperlipidemia, unspecified; I10 Essential (primary) hypertension; Z71.3 Dietary counseling and surveillance
CPT/HCPCS: 97803; G0109

== ENCOUNTER 2018-07-22 14:15 | Outpatient (RCR) | payer MEDICAID, SELFPAY ==
[2018-07-01 00:51] VITALS: BP 122/56; BP 142/70; BMI 31.9
--- NOTE | 2018-07-06 08:16 | CR.ITP_ITS ---
General Information - General Information Admitting Diagnosis: CABG - Education/Goals Cardiac Rehabilitation Goals: 1. Maintain the individual as the primary focus of care. 2. To improve the patient's quality of life. 3. Identification of cardiac risk factors and provide cardiac risk factor management. 4. Enhance the psychosocial status of the patient. 5. Reconditioning enough to allow the patient to resume customary activities. 6. Control symptoms of cardiac disease Scale for measuring improvement of personal goals: Enter appropriate number in Comments. 2 = Unchanged. 3 = Slightly Better. 4 = Moderate Improvement. 5 = Met my Goal Exercise - 60-Day Assessment - Visit Date of Eval: 07/06/18 Session #:: 18 - Stages of Change Stages of Change:: Action - Exercise Prescription Mode:: NuStep Frequency (x/week): 3 Duration:: 30-45 METs: 4 Target Heart Rate:: 114-122 Max HR 112 - Hypertension Resting Blood Pressure:: 108/62 Peak Exercise Blood Pressure:: 140/72 - Intervention Home Exercise/Activity Goal:: Sitting Time <3 hrs/day - Education Goals:: Warm-up, RPE HUMBLE Scale, S/S, Safe Exercise, Self-Monitoring - Exercise Program Goals Exercise Program Goals: Aerobic Activity >30 min, B/P <130/80 Nutrition - Initial Assessment - Program Goals Nutrition Program Goals: LDL <70. Total Cholesterol <200. HDL >45. Triglyceri barbie <150. HgbA1C <7%. BMI <25 - Diabetes Do you monitor your blood sugar at home?: Yes Nutrition - 60-Day Assessment - Program Goals Nutrition Program Goals: LDL <70. Total Cholesterol <200. HDL >45. Triglycerides <150. HgbA1C <7%. BMI <25 - Visit Date of Eval: 07/06/18 - Stages of Change Stages of Change:: Action - Diabetes Diabetes:: Yes - Intervention Referral to dietitian:: No Referral to Diabetic Clinic:: No Will attend diet classes:: Yes - Education Attended class for:: Signs & symptoms of hypoglycemia, Signs & symptoms of hyperglycemia, Relate diabetes to coronary artery disease, Healthy eating Tobacco - Initial Assessment - Program Goals Tobacco Program Goals: Complete smoking cessation. Attend education classes. Improve Knowledge Test score - Learning Barriers Learning Barriers: Ready to Learn Tobacco - 60-Day Assessment - Program Goals Tobacco Program Goals: Complete smoking cessation. Attend education classes. Improve Knowledge Test score - Stage of Change Stages of Change:: Action - Learning Barriers Learning Barriers: Participates in education - Family Support Do you have family support?: Yes - Intervention Smoking Cessation Referral:: No Individual Education/Counseling:: No Education Schedule Given:: Yes - Education Attended class for:: Tobacco triggers, Coronary artery disease, Risk factors, Sexuality, Medical compliance, Cardiac A&P, Angina signs & symptoms Psychosocial - Initial Assess - Target Goals Target Goals: Assess presence or absence of depression. Using a valid screening tool, maximizes coping skills. Positive support system - Psychosocial Test Tool Used:: HANDS Depression Questionnaire - Assistive Devices Fall Risk Assessed:: Yes Psychosocial - 60-Day Assess - Target Goals Target Goals: Assess presence or absence of depression. Using a valid screening tool, maximizes coping skills. Positive support system - Stages of Change Stages of Change:: Action - Psychosocial Test Tool Used:: HANDS Depression Questionnaire - Intervention PS - Interventions: Yes Attend Stress Management Classes, Yes Uses Stress Management Skills, No Referral to Mental Health, No Referral to [facility] Case Management, No Referral to Physician - Education Attended classes for:: Coping techniques, Signs & symptoms of depression, Stress management, Relaxation techniques - Assistive Devices Assistive Devices:: None Patient Health Questionnaire 60-Day Re-eval Assessment 1. Little interest or pleasure in doing things: Not at all 2. Feeling down, depressed, or hopeless: Not at all 3. Trouble falling or staying asleep, or sleeping too much: Nearly every day 4. Feeling tired or having little energy: Several days 5. Poor appetite or overeating: Not at all 6. Feeling bad about yourself -- or that you are a failure or have let yourself or your family down: Several days 7. Trouble concentrating on things, such as reading the newspaper or watching television: Several days 8. Moving or speaking so slowly that other people could have noticed. Or the opposite - being so fidgety or restless that you have been moving around a lot more than usual: Not at all 9. Thoughts that you would be better off , or of hurting yourself in some way: Not at all How difficult have these problems made it for you to do your work, take care of things at home, or get along with other people?: Somewhat difficult Total Score: 6 Self-Efficacy 60-Day Re-eval Assessment We would like to know how confident you are in doing certain activities. Please select your confidence level for:: Select your confidence level for the following using the scale 1-10 where 1 is not at all confident and 10 is totally confident. Your score is the average of all 6 responses. Fatigue: How confident are you that you can keep the fatigue caused by your disease from interfering with the things you want to do? Select Number: 8 Physical Discomfort or Pain: How confident are you that you can keep the physical discomfort or pain of your disease from interfering with the things you want to do? Select Number: 6 Emotional Distress: How confident are you that you can keep the emotional distress caused by your disease from interfering with the things you want to do? Select Number: 9 Other Symptoms or Health Problems: How confident are you that you can keep other symptoms or health problems from interfering with the things you want to do? Select Number: 9 Different Tasks and Activities: How confident are you that you can do the different tasks and activities needed to manage your health condition so as to reduce your need to see a doctor? Select Number: 10 Medication: How confident are you that you can do things other than just taking medication to reduce how much your illness affects your everyday life? Select Number: 10 Total Score:: 8
[2018-07-06 08:21] VITALS: BP 108/62; BP 140/72
== END 2018-07-28 23:59 ==
LOC: CR 14:15
PROVIDERS: Family Provider Family Medicine
DX: Z95.1 Presence of aortocoronary bypass graft (principal)
CPT/HCPCS: 93798; G0109

== ENCOUNTER 2018-08-04 13:26 | Outpatient (RCR) | payer MEDICAID, SELFPAY ==
[2018-07-29 00:44] VITALS: BMI 33.3
== END 2018-08-28 23:59 ==
LOC: DC 13:26
PROVIDERS: Family Provider Family Medicine; Visit Provider Family Medicine
DX: E11.9 Type 2 diabetes mellitus without complications (principal); I25.10 Atherosclerotic heart disease of native coronary artery without angina pectoris; E78.5 Hyperlipidemia, unspecified; I10 Essential (primary) hypertension; Z71.3 Dietary counseling and surveillance

== ENCOUNTER 2018-09-01 12:59 | Outpatient (RCR) | payer MEDICAID, SELFPAY ==
[2018-07-29 00:44] VITALS: BMI 33.3
== END 2018-09-01 23:59 ==
LOC: DC 12:59
PROVIDERS: Family Provider Family Medicine; Visit Provider Family Medicine
DX: E11.9 Type 2 diabetes mellitus without complications (principal); I25.10 Atherosclerotic heart disease of native coronary artery without angina pectoris; E78.5 Hyperlipidemia, unspecified; I10 Essential (primary) hypertension; Z71.3 Dietary counseling and surveillance
CPT/HCPCS: G0109

== ENCOUNTER → 2019-03-10 12:18 | Outpatient (CLI) | payer MEDICAID, SELFPAY ==
[2019-03-10 11:40] VITALS: BMI 33.3
[2019-03-10 13:01] LABS: AST(SGOT) 29 U/L (15-37); Alanine Aminotransfer ALT/SGPT 57 U/L (16-61); Albumin, Serum 4.1 g/dL (3.2-5.0); Alkaline Phosphatase 91 U/L (45-117); Bilirubin, Direct 0.15 mg/dL (0.00-0.30); Cholesterol 114 mg/dL (200); Globulin 3.4 g/dL (2.2-4.2); High Density Lipoprotein 35 mg/dL; Protein, Total 7.5 g/dL (6.4-8.2); Triglycerides 350 mg/dL; Very Low Density Lipoprotein 70 mg/dL (5-40)
== END ==
PROVIDERS: Internal Medicine Cardiovascular Disease; Family Provider Family Medicine; PCP Family Medicine; Referring Provider Physician Assistant Medical; Visit Provider Physician Assistant Medical
DX: I25.10 Atherosclerotic heart disease of native coronary artery without angina pectoris (principal); E78.5 Hyperlipidemia, unspecified; I10 Essential (primary) hypertension
CPT/HCPCS: 36415; 80061; 80076

== ENCOUNTER 2024-04-15 15:59 | Emergency (ER) | payer MEDICAID, SELFPAY ==
[2024-04-15 16:00] VITALS: BP 161/87; PULSE 101; RESP 18; TEMP 36.4; O2SAT 99; BMI 34.1
--- NOTE | 2024-04-15 16:19 | RAD_ITS ---
INDICATION: redness and swelling EXAMINATION/TECHNIQUE: X-RAY - LEFT XR Elbow Min 3 Views 3 VIEWS COMPARISON: None. FINDINGS: SOFT TISSUES: No soft tissue swelling or gas. No radiopaque foreign body. BONES/JOINTS: No acute fracture. Joint spaces anatomically aligned. No sclerotic or destructive changes observed. RAD/Elbow min 3 Views IMPRESSION: No acute bony injury. Electronically Signed: Levon Connor MD at 17:11 EST ,
[2024-04-15 17:03] VITALS: BP 141/75; PULSE 85; RESP 18; TEMP 37.1; O2SAT 97
[2024-04-15] MEDS: Ceftriaxone 1 GM/50 ML BAG IV (17:10)
--- NOTE | 2024-04-15 17:28 | EX.ED.DYSGE1 ---
HPI History of Present Illness Chief Complaint: Cellulitis Narrative Narrative: Patient is a 63-year-old male with past medical history of hyperlipidemia, type 2 diabetes, CAD, hypertension who presents to the emergency department the chief complaint of left elbow swelling and redness. Patient states that on Wednesday he noted that he developed some redness in his left elbow that progressively worsened and today he noted that there was redness spreading down his arm. Patient denies any known injury to his elbow. States that he is not currently on any antibiotics. Patient states that he can move his elbow it is painful as he tries to fully bend it. He states that he cannot fully extend it. [facility] Medical History (Updated 04/15/24 @ 20:[address] Je Russell, DO) Atherosclerotic heart disease of [place] coronary artery without angina pectoris Cellulitis of left lower extremity Essential hypertension Hyperlipidemia Type II diabetes mellitus CAD (coronary artery disease) Diabetes mellitus HTN (hypertension) NSTEMI (non-ST elevated myocardial infarction) Home Medications ?Medication ?Instructions ?Recorded ?Last Taken ?Type empagliflozin 25 mg tablet 25 mg PO DAILY lose weight 03/19/18 03/19/18 10:00 History 25 metformin 1,000 mg tablet 1,000 mg PO BID diabetic 03/19/18 03/19/18 10:00 History 1000 aspirin 81 mg tablet,delayed 81 mg PO DAILY@0800 03/21/18 Unknown Rx release lisinopril 2.5 mg tablet 2.5 mg PO DAILY 04/26/18 Unknown History atorvastatin 80 mg tablet 80 mg PO DAILY 05/13/18 Unknown History glimepiride 4 mg tablet 4 mg PO BID 09/09/18 Unknown History metoprolol tartrate 50 mg tablet 50 mg PO DAILY 09/09/18 Unknown History sildenafil 100 mg tablet (Viagra) 100 mg PO .COMPLEX #10 tabs 03/10/19 Unknown Rx cephalexin 500 mg capsule 500 mg PO Q12H 7 days #14 caps 04/15/24 Unknown Rx sulfamethoxazole 800 1 tab PO Q12H 7 days #14 tabs 04/15/24 Unknown Rx mg-trimethoprim 160 mg tablet Allergy/AdvReac Type Severity Reaction Status Date / Time oyster extract Allergy Rash Verified 04/15/24 16:00 shrimp Allergy Rash Verified 04/15/24 16:00 Family History Father COPD (chronic obstructive pulmonary disease) Hypertension Surgical History Status post coronary artery bypass graft (~03/28/18) Social History Smoking Status: Never smoker alcohol intake: never substance use type: does not use caffeine: Yes Type: carbonated beverages Number of servings: 6 ROS ROS ED ROS Narrative Constitutional: Denies any fevers or chills, headaches Cardiovascular: Denies chest pain Respiratory: Denies shortness of breath or coughing Abdomen: Denies nausea vomit diarrhea Neurological: Denies numbness, weakness, tingling Musculoskeletal: Complains of left elbow pain as noted above Skin: Complains of redness to the left elbow as noted above EXAM Physical Exam Narrative Exam Narrative: General: Patient lying in bed resting comfortably did not appear to be in acute distress Head: Atraumatic, normocephalic Eyes: PERRL bilaterally, EOMI bilateral, no conjunctival injection noted Neck: Soft, supple, trach midline Cardiovascular: Regular in rhythm no murmurs gallops rubs noted Respiratory: Clear to auscultation bilaterally Musculoskeletal: Patient has full range of motion of his left elbow he states that he does have some pain with attempted full flexion of the elbow states that his tight in his skin when he tries to do this he is able to fully extend his elbow Extremities: Radial pulses +2/4 in the bilateral upper extremities, +5/5 strength noted in the bilateral upper and lower extremities, compartments soft and compressible Neurological: Patient is following commands knew that he was at [facility] year is 2023. Patient's sensation grossly intact in the median ulnar radial nerve distributions bilaterally as well as axillary nerve bilaterally Skin: Patient has erythema overlying the dorsal aspect of his left elbow extending down distally to his proximal left forearm. No petechia no purpura no sloughing of the skin noted Const Vital Signs: 04/15/24 16:00 04/15/24 17:03 04/15/24 18:00 Temperature 97.6 F L 98.7 F 98.7 F Temperature Source Oral Oral Oral Pulse Rate 101 H 85 75 Respiratory Rate 18 18 18 Blood Pressure 161/87 H 141/75 H 126/71 H Blood Pressure Mean 111 97 89 Pulse Ox 99 97 97 Oxygen Delivery Method Room Air Room Air Room Air 04/15/24 18:59 Temperature 99.6 F H Temperature Source Oral Pulse Rate 75 Respiratory Rate 18 Blood Pressure 125/76 H Blood Pressure Mean 92 Pulse Ox 97 Oxygen Delivery Method Room Air MDM MDM MDM Narrative Medical decision making narrative: Patient is a 63-year-old male who presented to the emergency department with a chief complaint of left elbow pain and left forearm redness. Patient will have a workup performed here on the differential diagnose includes but not limited to left elbow/forearm cellulitis, septic joint although do feel this less likely as he does have full range of motion of his left elbow with minimal pain. Once workup is obtained reviewed he will be reevaluated. Patient be given a dose of IV Rocephin. Patient CBC reviewed and showed no evidence leukocytosis white blood count normal at 8.8, hemoglobin stable 12.5, platelet count was noted to be normal at 189. Patient's ESR was elevated to 49, sodium normal at 135, potassium normal at 3.8, creatinine normal at 1.10. Patient lactic acid elevated 2.2, glucose was 285. Patient CRP was elevated to 148. Patient's x-ray of his elbow reviewed was reviewed by myself and by radiology showed no acute bony injury no joint effusion noted. There was noted to be cobblestoning noted on his distal forearm indicate cellulitis. Did discuss case with on-call orthopedic surgeon Dr. Gallagher who is recommending aspirating the patient's olecranon bursa as there is concern for olecranon bursitis and sent for studies. I did do bedside ultrasound and there was small amount of fluid noted in the olecranon bursa there is no large joint effusion noted in his left elbow. Consent was obtained. Procedure was performed patient tolerated procedure well was unable to obtain any fluid to be sent for culture, Gram stain, cell count, crystal analysis. Patient will be given a dose of Bactrim here he was already given Rocephin as noted above. Prescriptions for Keflex and Bactrim will be sent to his pharmacy. He was advised to return with worsening symptoms or other concerns. He is advised to keep a close eye on the redness while on antibiotics if worsening he needs to come back to the emergency department or go to the nearest emergency room as he states he is going to be traveling to [place] in the near future to follow-up with his doctors down there. Patient was encouraged to return for fevers with worsening pain as well. He is agreeable this plan as well as for member bedside all question concerns answered he is discharged home in stable condition. Procedure note Indication: Concern for septic olecranon bursitis Timeout protocol was performed prior to initiating procedure. The area was prepped and draped in the usual, sterile manner. 18-gauge needle was used to insert into the olecranon bursa, however no fluid was able to be aspirated from this. Patient tolerated procedure well without any complications. Bleeding was minimal. Follow-up: The patient tolerated procedure well without complications. Standard postprocedure care is explained and return precautions were given. Lab Data Labs: Laboratory Results - last 24 hr 04/15/24 17:06 WBC 8.8 RBC 3.89 L Hgb 12.5 L Hct 37.0 L MCV 95.1 H MCH 32.1 H MCHC 33.8 RDW Std Deviation 43.5 RDW Coeff of Marcos 12.5 Plt Count 189 MPV 9.4 Immature Gran % (Auto) 0.200 Neut % (Auto) 80.8 H Lymph % (Auto) 8.9 L Mcculloch % (Auto) 9.1 Eos % (Auto) 0.8 Baso % (Auto) 0.2 Absolute Neuts (auto) 7.1 Absolute Lymphs (auto) 0.78 L Nucleated RBC % 0 ESR 49 H Sodium 135 L Potassium 3.8 Chloride 101 Carbon Dioxide 26.0 Anion Gap 8 BUN 13 Creatinine 1.10 Estim Creat Clear Calc 84.57 Est GFR (MDRD) Af Amer 87 Est GFR (MDRD) Non-Af 72 BUN/Creatinine Ratio 11.8 Glucose 285 H Lactic Acid 2.2 H* Calcium 9.3 Total Bilirubin 0.60 AST 11 L ALT 28 Alkaline Phosphatase 76 C-React Prot Ext Range 148.00 H Total Protein 7.7 Albumin 3.8 Globulin 3.9 Albumin/Globulin Ratio 1.0 Radiography Diagnostic Testing: Clinical Impression(s) from Imaging Studies Elbow X-Ray 04/15/24 16:19 IMPRESSION: No acute bony injury. Electronically Signed: Levon Connor MD at 17:11 EST , Discharge Plan Triage Chief Complaint: Cellulitis ED Provider: Je Russell Dx/Rx/DC Orders Clinical Impression: Bursitis, olecranon, Cellulitis of arm, left Instructions: ED Bursitis Elbow Olecranon Prescriptions: New cephalexin 500 mg capsule 500 mg PO Q12H 7 Days Qty: 14 0RF sulfamethoxazole-trimethoprim 800-160 mg tablet 1 tab PO Q12H 7 Days Qty: 14 0RF No Action atorvastatin 80 mg tablet 80 mg PO DAILY metoprolol tartrate 50 mg tablet 50 mg PO DAILY glimepiride 4 mg tablet 4 mg PO BID sildenafil [Viagra] 100 mg tablet 100 mg PO .COMPLEX Qty: 10 0RF Rx Instructions: 100 mg PO as needed; metformin 1,000 MG tablet 1,000 mg PO BID empagliflozin 25 tablet 25 mg PO DAILY aspirin 81 MG tablet 81 mg PO DAILY@0800 0RF lisinopril 2.5 MG tablet 2.5 mg PO DAILY Primary Care Provider: Rick Carr Referrals: Alberto Gallagher MD [Med Staff - Active Staff] - Rick Carr MD [Primary Care Provider] - Activity Restrictions/Additional Instructions: Take antibiotics as prescribed that were sent to your pharmacy. Return with fevers, worsening pain, worsening redness while on antibiotics. Follow-up with Dr. Gallagher or your physician down in [place]. Use Tylenol for pain control. Print Language: Portuguese Disposition Disposition: Home, Self Care
[2024-04-15 17:40] LABS: Absolute Lymphocyte Count 0.78 X10^3/uL (0.83-4.51); Absolute Neutrophil Count 7.1 X10^3/uL (2.0-7.7); Basophil# 0.02 X10^3/uL; Basophil% 0.2 % (0-1); Eosinophil# 0.07 X10^3/uL; Eosinophils% 0.8 % (0-5); Hemoglobin 12.5 g/dL (13.0-16.5); Lymphocyte # 0.78 X10^3/ul (0.83-4.51); Lymphocyte % 8.9 % (19-41); Mean Corp Hgb Conc 33.8 g/dL (32-36); Mean Corpuscular Hgb 32.1 pg (27.0-32.0); Mean Corpuscular Volume 95.1 fL (80-94); Mean Platelet Vol. 9.4 fl (6.2-12.0); Monocyte% 9.1 % (0-10); NRBC Flagged by Analyzer 0 % (0-5); Neutrophil # 7.07 X10^3/uL (2.7-7.7); Neutrophil % 80.8 % (47-70); Platelet Count 189 K/mm3 (150-450); RBC Distribution Width CV 12.5 % (11.6-14.6); RBC Distribution Width SD 43.5 fl (35.1-43.9); Red Blood Count 3.89 M/mm3 (4.6-6.2); White Blood Count 8.8 K/mm3 (4.4-11.0)
[2024-04-15 17:50] LABS: AST(SGOT) 11 U/L (15-37); Alanine Aminotransfer ALT/SGPT 28 U/L (16-61); Albumin, Serum 3.8 g/dL (3.2-5.0); Alkaline Phosphatase 76 U/L (45-117); Anion Gap 8 (5-15); BUN 13 mg/dL (7-18); BUN/Creat Ratio 11.8 RATIO (10-20); Calcium,Total 9.3 mg/dL (8.5-10.1); Chloride 101 mmol/L (98-107); EST Glomerular Filtration Rate 72 mL/min (>60); Est Glom Filt Rate - Afr Amer 87 mL/min (>60); Estimated Creatinine Clearance 84.57 ml/min; Globulin 3.9 g/dL (2.2-4.2); Glucose 285 mg/dL (74-106); Potassium 3.8 mmol/L (3.5-5.1); Protein, Total 7.7 g/dL (6.4-8.2); Sodium Level 135 mmol/L (136-145)
[2024-04-15 17:56] LABS: Erythrocyte Sedimentation Rate 49 mm/hr (0-20)
[2024-04-15 18:00] VITALS: BP 126/71; PULSE 75; RESP 18; TEMP 37.1; O2SAT 97
[2024-04-15 18:22] LABS: Lactic Acid 2.2 mmol/L (0.4-1.9)
[2024-04-15 18:59] VITALS: BP 125/76; PULSE 75; RESP 18; TEMP 37.6; O2SAT 97
[2024-04-15] MEDS: Ondansetron 4 MG/2 ML Vial IV (19:06)
[2024-04-15] MEDS: Morphine 4 MG/ML Syringe IV (19:07)
[2024-04-15] MEDS: Smz/Tmp Ds Tablet 1 TABLET PO (20:22)
--- NOTE | 2024-04-15 20:25 | ED.RN ---
MD attempted to aspirate fluid but unable to get fluid. dressing applied and placido wrap.
[2024-04-15 21:27] LABS: Reflex Lactate? Y
== END 2024-04-15 20:25 | disposition home or self-care (01) ==
PROVIDERS: Emergency Provider Emergency Medicine; PCP Family Medicine; Visit Provider Emergency Medicine
DX: L03.114 Cellulitis of left upper limb (principal); E11.9 Type 2 diabetes mellitus without complications; M70.20 Olecranon bursitis, unspecified elbow; E78.5 Hyperlipidemia, unspecified; I25.10 Atherosclerotic heart disease of native coronary artery without angina pectoris; I10 Essential (primary) hypertension; Z79.899 Other long term (current) drug therapy
CPT/HCPCS: 73080; 80053; 83605; 85025; 85652; 86140; 87040; 96365; 96375; 99284; J7040; A4216; J2405